=== PATIENT | female | born 1960 | race Caucasian/White ===

== ENCOUNTER 2024-11-03 05:59 | Emergency (ER) | payer BC, SELFPAY ==
[2024-11-03 06:00] VITALS: BP 158/86; PULSE 84; RESP 22; TEMP 36.3; O2SAT 98; BMI 35.1
--- NOTE | 2024-11-03 06:22 | RAD_ITS ---
PROCEDURE: Right humerus radiographs, three views 11/03/2024 REASON FOR EXAM: PAIN fall TECHNIQUE: Three views of the right humerus were obtained. COMPARISON: None. FINDINGS: 3 views of the right humerus were obtained. The mid to distal right humerus and included proximal radius/ulna are intact. There is a displaced comminuted fracture involving the right humeral head/neck junction, which extends into the substance of the humeral head. A large portion of the humeral head is displaced inferiorly relative to the glenoid. RAD/Humerus min 2 Views IMPRESSION: Comminuted displaced fracture of the proximal right humerus/humeral head. Reading Location: [facility]
--- NOTE | 2024-11-03 06:22 | RAD_ITS ---
PROCEDURE: Right shoulder radiographs, three views 11/03/2024 REASON FOR EXAM: PAIN, fall TECHNIQUE: Three views of the right shoulder were obtained. FINDINGS: Three radiographic images of the right shoulder were obtained. Mild degenerative change of the right acromioclavicular joint. No AC joint widening. Included right lung is clear. There is a comminuted displaced fracture of the right humeral head/neck junction. There is a comminuted appearance of the right humeral head. A large portion of the right humeral head is displaced inferior to the glenoid, without significant anterior or posterior dislocation. RAD/Shoulder min 2 Views IMPRESSION: Comminuted displaced fracture of the proximal right humerus/right humeral head as above. There is inferior displacement of a large portion of the right humeral head inf erior to the glenoid. Reading Location: [facility]
[2024-11-03] MEDS: Ondansetron ODT 4 MG Tablet PO (06:39)
[2024-11-03] MEDS: morphine 10 MG/ML Syringe 6 MG IM (06:39)
--- NOTE | 2024-11-03 06:42 | EDS_ITS ---
HPI History of Present Illness Chief Complaint: Upper Extremity Injury Informant: patient and spouse/S.O. Narrative Narrative: Patient is a 64-year-old female who reports a past medical history of hypertension and hyperlipidemia. She reports she is right-hand dominant. She states around 3 in the morning she fell out of bed and landed on her right side. She denies any LOC and states she does not have a history of bleeding disorder nor does she take blood thinners. She states she noticed pain in her right upper arm/shoulder but tried to go back to bed. She states over the next 3 hours any type of motion causes severe pain and she noticed increased swelling to the arm and therefore with concern for fracture she presents for evaluation [facility] Medical History no medical history no medical history Home Medications ?Medication ?Instructions ?Recorded ?Last Taken ?Type ondansetron 4 mg disintegrating 4 mg PO TID PRN nausea and 11/03/24 Unknown Rx tablet vomiting #21 tabs oxycodone 5 mg tablet 5 mg PO Q6H PRN pain 5 days #20 11/03/24 Unknown Rx tabs Allergy/AdvReac Type Severity Reaction Status Date / Time Unable to Assess Allergy Verified 11/03/24 06:04 Social History Smoking Status: Current every day smoker tobacco type: cigarettes ROS ROS ED Constitutional Constitutional ED: Denies chills or fever(s) Eyes Eyes: Denies blurry vision, change in vision or diplopia ENT ENT ED: Denies sore throat Cardiovascular Cardiovascular: Denies chest pain Respiratory/Chest Respiratory/Chest: Denies cough or dyspnea Gastrointestinal Gastrointestinal: Denies abdominal pain, diarrhea, nausea or vomiting Genitourinary Genitourinary ED: Denies dysuria Musculoskeletal Musculoskeletal: Reports other Details: Positive right shoulder/upper arm pain ; Denies back pain or neck pain Integumentary Reports other Details: Positive bruising right upper arm Neurologic Neurologic: Denies headache(s) or paresthesias Hematologic/Lymphatic Hematologic/Lymphatic: Denies easy bleeding or easy bruising EXAM Physical Exam Const Vital Signs: 11/03/24 06:00 Temperature 97.4 F L Temperature Source Oral Pulse Rate 84 Respiratory Rate 22 H Blood Pressure 158/86 H Blood Pressure Mean 110 Pulse Ox 98 Positive well nourished, well developed and obese General Appearance ED: well developed Nutritional Appearance: obese HEENT HEENT Narrative: Normocephalic atraumatic Eyes PERRL and EOMs intact bilaterally Neck full ROM and supple Neck Narrative: No bony deformity or step-off of the cervical spine no midline tenderness to palpation Resp normal respiratory effort and clear to auscultation bilaterally Cardio regular rate and regular rhythm Back/Spine Back/Spine Narrative: No bony deformity or step-off of the thoracic or lumbar spine no midline tenderness to palpation Extremity Extremity Narrative: Right upper extremity is neurovascularly intact; AIN/PIN are intact and normal Patient has ecchymosis and soft tissue swelling of the right upper arm/humerus compared to left concerning for fracture. Compartments are soft and compressible however going against compartment syndrome. No sulcus sign noted. Active range of motion as well as passive range of motion is severely limited secondary to pain Pelvis is stable there is no shortening or external rotation of either lower extremity Remainder of the exam is normal Neuro oriented x3 and CN's II-XII intact bilaterally Sensorium / Orientation: alert Psych mental status grossly normal Skin Skin Narrative: Soft tissue swelling ecchymosis of the right upper arm/humerus as documented above Capillary refill is less than 3 seconds MDM MDM MDM Narrative Medical decision making narrative: Patient presented to the ER hypertensive as a past medical history of this. She reported a mechanical fall from her bed she is not on a blood thinner nor does she have signs of head trauma so my concern for a skull fracture versus traumatic subarachnoid or subdural hemorrhage is low and I feel no need for head CT. The patient has soft tissue swelling ecchymosis of the right upper arm but compartments are soft and compressible going against compartment syndrome. As history and exam is most concerning with a proximal humerus fracture/shoulder fracture x-rays were obtained. This confirmed a comminuted humeral head/neck fracture. The case was discussed and reviewed by orthopedic surgeon Dr. Flores. He agrees as she is neurovascularly intact there is no need for emergent surgical fixation. He recommends he be placed in a sling for stabilization and can follow-up as an outpatient. This plan of care was discussed with patient and family and they are agreeable to it and therefore she prescribed oxycodone for pain control but is otherwise safe for discharge History & Record Review Discussion w/independent historian: Patient and Significant other Radiography Diagnostic Testing: X-ray of the right shoulder displays a comminuted fracture of the right humeral head/neck junction without obvious dislocation X-ray of the right humerus shows the comminuted fracture of the right humeral head with intact distal humerus Discharge Plan Triage Chief Complaint: Upper Extremity Injury ED Provider: Luis Geiger Dx/Rx/DC Orders Clinical Impression: Fracture of shoulder, Accidental fall, Hypertension, Hyperlipidemia Instructions: ED Fracture, Upper Extremity, ED Fracture, Shoulder Prescriptions: New oxycodone 5 mg tablet 5 mg PO Q6H PRN (Reason: pain) 5 Days Qty: 20 0RF ondansetron 4 mg tablet,disintegrating 4 mg PO TID PRN (Reason: nausea and vomiting) Qty: 21 0RF Primary Care Provider: Cooper Rivers Referrals: Cooper Rivers MD [Primary Care Provider] - Man Flores DO [Med Staff - Active Staff] - (Right shoulder fracture) Activity Restrictions/Additional Instructions: Please wear your sling for support and stabilization of your fracture. Sleep in more of an upright position to allow gravity to lengthen the fracture fragment out. Follow-up with orthopedics/Dr. Flores for repeat evaluation and to discuss need for surgical fixation of your shoulder. Return to the ER should you have any further concerns Print Language: Latvian Disposition Disposition: Home, Self Care
[2024-11-03 08:06] VITALS: BP 119/66; PULSE 78; RESP 14; TEMP 36.6; O2SAT 97
== END 2024-11-03 08:08 | disposition home or self-care (01) ==
PROVIDERS: Emergency Provider Emergency Medicine; PCP Family Medicine; Visit Provider Emergency Medicine
DX: S42.201A Unspecified fracture of upper end of right humerus, initial encounter for closed fracture (principal); W06.XXXA Fall from bed, initial encounter; I10 Essential (primary) hypertension; E78.5 Hyperlipidemia, unspecified; E66.9 Obesity, unspecified; F17.210 Nicotine dependence, cigarettes, uncomplicated
CPT/HCPCS: 73030; 73060; 96372; 99283

== ENCOUNTER → 2024-11-03 | Outpatient (CLI) | payer BC, SELFPAY ==
--- NOTE | 2024-11-03 15:15 | CT_ITS ---
PROCEDURE: Noncontrast CT of the right shoulder. 11/03/2024 REASON FOR EXAM: Proximal right humerus fracture TECHNIQUE: Contiguous unenhanced axial CT images were obtained through the right shoulder. Sagittal and coronal reformats were created. One or more dose reduction techniques were used (e.g., Automated exposure control, adjustment of the mA and/or kV according to patient size, use of iterative reconstruction technique). RADIATION DOSE SUMMARY: DLP: 807.95 mGycm COMPARISON: Right shoulder radiographs from the same day FINDINGS: Included portions of the spine, sternum, right scapula, and right clavicle are intact. The included right ribs are intact. The included portions of the trachea and right lung are clear. The included right breast is unremarkable. There is a displaced extensively comminuted fracture involving the right humeral head/neck junction. Fracture extends into the right humeral head which demonstrates a comminuted appearance. The bulk of the right humeral head is displaced inferiorly relative to the glenoid, without significant anterior/posterior dislocation. There is edema involving the soft tissues and musculature of the proximal right humerus as well as the rotator cuff. No bony Bankart lesion is demonstrated. Small right glenohumeral joint effusion. No AC joint separation. CT/Extremity Upper without Contra IMPRESSION: Displaced comminuted fracture involving the proximal right humerus, extending i nto the right humeral head. The bulk of the right humeral head is displaced inferiorly relative to the glenoid. Small glenohumeral joint effusion and moderate edema involving the nearby muscu lature and soft tissues/subcutaneous fat of the upper right arm. [facility]
[2024-11-03 15:46] LABS: Absolute Lymphocyte Count 1.75 X10^3/uL (0.83-4.51); Absolute Neutrophil Count 9.9 X10^3/uL (2.0-7.7); Basophil# 0.04 X10^3/uL; Basophil% 0.3 % (0-1); Eosinophil# 0.04 X10^3/uL; Eosinophils% 0.3 % (0-5); Hematocrit 42.2 % (37-47); Hemoglobin 14.2 g/dL (12.0-15.0); Lymphocyte # 1.75 X10^3/ul (0.83-4.51); Lymphocyte % 13.8 % (19-41); Mean Corp Hgb Conc 33.6 g/dL (32-36); Mean Corpuscular Hgb 31.6 pg (27.0-32.0); Mean Platelet Vol. 11.9 fl (6.2-12.0); Monocyte# 0.86 X10^3/uL; Monocyte% 6.8 % (0-10); NRBC Flagged by Analyzer 0 % (0-5); Neutrophil % 78.3 % (47-70); Platelet Count 227 K/mm3 (150-450); RBC Distribution Width CV 14.5 % (11.6-14.6); RBC Distribution Width SD 49.7 fl (35.1-43.9); Red Blood Count 4.49 M/mm3 (4.2-5.4); White Blood Count 12.7 K/mm3 (4.4-11.0)
[2024-11-03 16:35] LABS: Anion Gap 13 (5-15); BUN 14 mg/dL (4-19); BUN/Creat Ratio 17.1 RATIO (10-20); Calcium,Total 9.4 mg/dL (7.6-11.0); Carbon Dioxide 24.8 mmol/L (21.0-32.0); Chloride 95 mmol/L (98-108); Creatinine, Serum 0.84 mg/dL (0.70-1.20); EST Glomerular Filtration Rate 78 (>60); Glucose 112 mg/dL (70-99); Potassium 3.5 mmol/L (3.3-5.1); Sodium Level 133 mmol/L (133-145)
== END | disposition home or self-care (01) ==
PROVIDERS: PCP Family Medicine
DX: Z01.812 Encounter for preprocedural laboratory examination (principal); S42.291A Other displaced fracture of upper end of right humerus, initial encounter for closed fracture; X58.XXXA Exposure to other specified factors, initial encounter; Z71.3 Dietary counseling and surveillance
CPT/HCPCS: 36415; 73200; 80048; 85025

== ENCOUNTER → 2024-11-04 | Outpatient (CLI) | payer BC, SELFPAY ==
--- NOTE | 2024-11-04 08:40 | EKG12_ITS ---
Test Reason : PRE OP Blood Pressure : */* mmHG Vent. Rate : 72 BPM Atrial Rate : 72 BPM P-R Int : 124 ms QRS Dur : 86 ms QT Int : 398 ms P-R-T Axes : 44 -6 67 degrees QTcB Int : 435 ms Normal sinus rhythm Normal ECG Confirmed by ANSELMO ROSENBERG, LETY ([id number]), senior editor SHERRY GRAYSON ([id number]) on 11/04/2024 12:45:44 PM Referred By: Lyly Teixeira Confirmed By: LETY BRIONES MD
== END | disposition home or self-care (01) ==
LOC: PSN 08:33
PROVIDERS: PCP Family Medicine
DX: Z01.810 Encounter for preprocedural cardiovascular examination (principal)
CPT/HCPCS: 93005

== ENCOUNTER 2024-11-21 15:16 | Observation (INO) | payer BC, SELFPAY ==
[2024-11-15 17:50] LABS: Magnesium 1.7 mg/dL (1.5-2.2)
[2024-11-21] VITALS (13 sets, daily range): BP systolic 76–156; BP diastolic 40–97; PULSE 73–93; RESP 15–20; TEMP 36.1–36.9; O2SAT 56–100; BMI 34.2; BMI 35.2
[2024-11-21] MEDS: Lactated Ringers 1,000 ML 75 ML IV (08:00)
--- NOTE | 2024-11-21 10:43 | PRE.ANES_ITS ---
ASA Classification* ASA Classification ASA Classification: 2 Assessment & Plan Anesthesia* Anesthesia Assessment Anesthesia Assessment: Discussed sedation and/or anesthesia options, risks, benefits, and alternatives with patient/parents/legal guardian/POA. Questions invited. The patient/parents/legal guardian/POA seems to understand and agrees to proceed with anesthesia plan. Reviewed the physical assessment, medical history, allergy history and patient home medications list prior to surgery/procedure/anesthetic and documented any changes. Performed airway and anesthesia risk assessments. Anesthesia Type Anesthesia Type: General and Block Anesthesia Focused Assessment* Airway Assessment Mouth opens: >3 cm Mallampati Score: II Focused Labs Anesthesia Preop lab: CBC WBC 12.7 K/mm3 (4.4-11.0) H 11/03/24 14:58 5 RBC 4.49 M/mm3 (4.2-5.4) 11/03/24 14:58 11/03/24 Hgb 14.2 g/dL (12.0-15.0) 11/03/24 14:58 11/03/24 Hct 42.2 % (37-47) 11/03/24 14:58 11/03/24 Plt Count 227 K/mm3 (150-450) 11/03/24 14:58 11/03/24 CHEMISTRY Potassium 3.5 mmol/L (3.3-5.1) 11/03/24 14:58 11/03/24 Sodium 133 mmol/L (133-145) 11/03/24 14:58 11/03/24 Magnesium 1.7 mg/dL (1.5-2.2) 11/15/24 16:21 11/15/24 BUN 14 mg/dL (4-19) 11/03/24 14:58 11/03/24 Creatinine 0.84 mg/dL (0.70-1.20) 11/03/24 14:58 11/03/24 Glucose 112 mg/dL (70-99) H 11/03/24 14:58 11/03/24 COAG Pre-Assessment Diagnosis/Proposed Procedure Planned Operative Procedure(s): (R) Total Shoulder Replacement, Reverse Anesthesia 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 When Was Last Pacemaker Check QUESTION #4 FULL TEXT: You/Your Family Experience fever (hyperthermia) with Anesthesia Last Oral Intake Last Oral intake: Last Oral Intake NPO since Meds taken in AM with sips of water? 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 Female Yes 11/14/24 12:38 HX of Motion Sickness No 11/14/24 12:38 HX of N/V After Surgery No 11/14/24 12:38 Non-Smoker No 11/14/24 12:38 Duration of Surgery greater Yes 11/14/24 12:38 than 60 minutes Number of Risk Factors 2 11/14/24 12:38 PONV Score Moderate Risk 11/14/24 12:38 Height & Weight Height & Weight: Anesthesia: Height & Weight Height 5 ft 7 in 11/18/24 10:49 Weight: 99.79 kg 11/18/24 10:49 Respiratory Assessment Respiratory Assessment - railroad car repairman: Respiratory Tract Infection Hx - railroad car repairman Hx Respiratory Tract Infection No 11/14/24 12:38 STOP Sleep Apnea STOP Sleep Apnea - railroad car repairman: STOP Sleep Apnea - railroad car repairman Hx Hypertension Yes: PER PT, CONTROLLED ON 11/14/24 12:38 MEDS Hx Sleep Apnea No 11/14/24 12:38 CPAP BIPAP Do you snore loudly (louder No 11/14/24 12:38 than talking or can be heard Do you often feel tired/ No 11/14/24 12:38 fatigued/ sleepy during daytime? Has anyone observed you stop No 11/14/24 12:38 breathing during sleep? STOP Results Negative 11/14/24 12:38 QUESTION #5 FULL TEXT : Do you snore loudly (louder than talking or can be heard through closed doors)? 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 Specify any problems Hx of Preganancy in last 3 No 11/14/24 12:38 Months Nurse Filling Out Transfusion MGRIFFITH 11/14/24 12:38 & Questions: Date: 11/14/24 11/14/24 12:38 Time: 12:41 11/14/24 12:38 Patient unable to answer at this time (ie. confused, unrespo /Reproduction History /Reproductive History - railroad car repairman: /Reproductive Hx- railroad car repairman Hx Now No 11/14/24 12:38 Gestational Age (in weeks): EDC: Hx Hx Para Hx Section SAB No 11/14/24 12:38 Active Medications Active Medications: Current Medications Generic Name Dose Route Start Last Admin Trade Name Freq PRN Reason Stop Dose Admin Acetaminophen 1,000 mg 11/21/24 13:05 Acetaminophen 500 Mg Tablet PO 11/21/24 13:06 X1 ONE Celecoxib 400 mg 11/21/24 13:05 Celecoxib 200 Mg Capsule PO 11/21/24 13:06 X1 ONE Gabapentin 600 mg 11/21/24 13:05 Gabapentin 600 Mg Tablet PO 11/21/24 13:06 X1 ONE Magnesium Sulfate 2 gm/ 104 mls @ 208 mls/hr 11/21/24 13:05 Dextrose IV 11/21/24 13:34 X1 ONE Lactated Ringer's 1,000 mls @ 999 mls/hr 11/21/24 13:05 IV 11/21/24 14:05 .Q1H1M ALICE Cefazolin Sodium 2 gm/ N/A 20 mls @ 400 mls/hr 11/21/24 13:05 IV 11/21/24 13:07 PREOP ONE Tranexamic Acid 1,000 mg/ 110 mls @ 660 mls/hr 11/21/24 13:05 Sodium Chloride IV 11/21/24 13:14 X1 ONE Lactated Ringer's 1,000 mls @ 75 mls/hr 11/21/24 13:05 IV 11/22/24 02:24 .[id number] ALICE Lactated Ringer's 1,000 mls @ 125 mls/hr 11/21/24 13:05 IV 11/21/24 21:04 .Q8H ALICE Insulin Human Lispro 1 - 6 unit 11/21/24 13:05 Insulin Lispro 100 Unit/Ml Insuln.Pen SC 11/21/24 18:00 Q4H PRN PRN BG>/= 180, SEE PROTOCOL Protocol PFSH Medical History Wears glasses High cholesterol Gastric reflux Smoker Chronic cough Hypertension Home Medications ?Medication ?Instructions ?Recorded ?Last Taken ?Type ondansetron 4 mg disintegrating 4 mg PO TID PRN nausea and 11/03/24 Unknown Rx tablet vomiting #21 tabs oxycodone 5 mg tablet 5 mg PO Q6H PRN pain 5 days #20 11/03/24 Unknown Rx tabs cholecalciferol (vitamin D3) 25 25 mcg PO DAILY 11/20/24 History mcg (1,000 unit) capsule (Vitamin D3) coenzyme Q10 100 mg capsule (Co 100 mg PO DAILY 11/20/24 History Q-10) hydrochlorothiazide 25 mg tablet 25 mg PO DAILY 11/20/24 History losartan 100 mg tablet 100 mg PO DAILY 11/14/2402/08 History ranitidine HCl 150 mg tablet 150 mg PO DAILY PRN ACID REFLUX 11/14/24 11/20/24 History simvastatin 20 mg tablet 20 mg PO QHS 11/14/24 History zolpidem 12.5 mg tablet,extended 12.5 mg PO QHS PRN NH N insomnia 11/14/24 11/20/24 History release,multiphase Allergy/AdvReac Type Severity Reaction Status Date / Time No Known Allergies Allergy Verified 11/21/24 10:40 Surgical History History of History of cholecystectomy Social History Smoking Status: Current every day smoker tobacco type: cigarettes Review of Systems (Anesthesia) ROS Narrative System reviewed and no additional complaints, except as documented.
[2024-11-21] MEDS: Celecoxib 200 MG Capsule 400 MG PO (10:49)
[2024-11-21] MEDS: Magnesium 2 GM for ERAS IV (10:49)
[2024-11-21] MEDS: Gabapentin 600 MG Tablet PO (10:49)
[2024-11-21] MEDS: Lactated Ringers 1,000 ML 999 ML IV (10:49)
[2024-11-21] MEDS: Acetaminophen 500 MG Tablet 1000 MG PO ×2 (10:49→20:20)
[2024-11-21] MEDS: Ipratropium/Albuterol Sulfate 3 ML AMPUL.NEB INHALATION (11:10)
[2024-11-21 11:11] LABS: Bedside Glucose 106 mg/dL (74-106)
--- NOTE | 2024-11-21 12:35 | SHO_PTH ---
PATIENT: ADRIANNA SHAH LOC: [facility] U#:[id number] AGE/SX: 64/F ROOM: [facility] RE11/21/[address]: Dr. Man Flores DO : 1960 BED: 1 DIS: 11/22/2024 SPEC #: [id number] RECD: 11/22/24 08:43 STATUS: VLAD LANIE #: [id number] CARLENE: 11/21/24 12:[address]: Man Flores DEPT: SURGICAL PATHOLOGY RECD BY: Christiano Montes ENTERED: 11/22/24 08:43 SP TYPE: HUMERUS OTHR DR: Dr. Cooper Rivers MD Tissues: A - Humerus, NOS Procedures: Decalcification bone/plaque Surgery Specimen Level IV HEADER OPERATION: Total shoulder replacement, reverse PRE-OP DIAGNOSIS: Right proximal humerus fracture TISSUE SUBMITTED: A- Right humeral head MICROSCOPIC DIAGNOSIS A. Right shoulder, fracture, total arthroplasty: * Articular bone with mild reactive/degenerative changes. * Fatty marrow with focal necrosis and fibrosis. * No evidence of neoplasia. MICROSCOPIC DESCRIPTION Slides are reviewed. GROSS DESCRIPTION A. Received in formalin in a container labeled with the patient's name, date of , and right humeral head are multiple irregular and firm fragments of bone measuring 5.0 x 5.0 x 3.0 cm in aggregate. The margins are shaggy and firm. The cortical surfaces are osborne and smooth. Sectioning reveals firm and osborne surfaces. Assistant Elementary Teacher sections submitted in A1 following decalcification. [facility] 11-22-2024 CPT:91662,67111
[2024-11-21] MEDS: Cefazolin 2 GM in Syringe 10 ML IV (13:10)
[2024-11-21] MEDS: TXA 1000mg in NS100 100ml (IVPB at Incision) 660 MG IV (13:15)
--- NOTE | 2024-11-21 14:21 | RAD_ITS ---
PROCEDURE: SHOULDER ONE VIEW 11/21/2024 REASON FOR EXAM: REVERSE TOTAL SHOULDER TECHNIQUE: 2 intraoperative fluoroscopic images from right shoulder replacement. COMPARISON: Right shoulder x-ray dated 11/03/2024. FINDINGS: Intraoperative images demonstrate right shoulder arthroplasty hardware, new since prior examination. Anatomic alignment. The humeral component is not viewed in its entirety on the images. RAD/Shoulder One View IMPRESSION: Status post right shoulder arthroplasty. Anatomic alignment. Reading Location: [id number]
--- NOTE | 2024-11-21 15:32 | PCM.POST.ANE ---
Anesthesia: Postop Eval I Current Vital Signs Temperature: 97 F Pulse Rate: 90 Blood Pressure: 140/97 Respiratory Rate: 15 Pulse Ox: 98 Oxygen Delivery Method: Room Air Assessment Airway patent: Yes Spontaneous unlabored respirations: Yes Mental status: Awake and Calm nausea: No Vomiting: No Anesthesia Complication: No Fluid Hydration Crystalloid volume administer (ml): 1,500 Total IV fluid infused: 1,500 Progress Note Anesthesia document: Postop Eval 1 completed: Yes
--- NOTE | 2024-11-21 15:45 | RAD_ITS ---
PROCEDURE: SHOULDER MIN 2 VIEWS 11/21/2024 REASON FOR EXAM: POST OP TECHNIQUE: 2 view(s) of the right shoulder COMPARISON: Intraoperative radiographs earlier same day. FINDINGS: Bones: Reverse shoulder arthroplasty in grossly anatomical alignment. Joints: Normal alignment. Mild degenerative changes of the acromioclavicular joint space. Soft tissues: Mild soft tissue swelling. Other: The visualized right lung is unremarkable. RAD/Shoulder min 2 Views IMPRESSION: Postoperative right reverse shoulder arthroplasty. Reading Location: [id number]
--- NOTE | 2024-11-21 15:49 | PCM.OPRPT ---
Operative Report (Standard) Operative Information Date of Procedure: 11/21/24 Pre-Operative Diagnosis: Right proximal humerus four-part fracture Post-Operative Diagnosis: Right proximal humerus four-part fracture Surgery/Procedure Performed: Right reverse total shoulder arthroplasty swine genetics researcher: Yes Correctional Therapy Director: Padma Grace Tasks completed by insurance assistant: Opening & closing, Dissecting tissue, Implanting device, Hemostasis: Electrocautery and Retracting Additional payroll administrative assistant?: No Type of Anesthesia: General/Regional RN Documented Start/Stop Times: Operation Date: 11/21/24 12:35 Case Time Into Pre-Op 11/21/24 10:23 Anesthesia Start 11/21/24 13:00 Into Room 11/21/24 13:00 Procedure Start 11/21/24 13:32 Procedure End 11/21/24 15:05 Anesthesia End 11/21/24 15:23 Out of Room 11/21/24 15:23 Into Recovery 11/21/24 15:27 Procedure Start Time: 13:32 Procedure Stop Time: 15:05 Select all DRAINS/GRAFTS/IMPLANTS that apply: Implanted device Implanted device details: Tornier perform fracture stem size 12, +0 mm retentive polyethylene, [employer]ornier Aequalis PerFORM+ reversed baseplate 25 mm full wedge augmented, standard glenosphere cobalt chrome 39 mm diameter Estimated Blood Loss: 50 cc Specimen collected: Yes Description of specimen(s) removed: Right humeral head Description of surgery: Patient arrived to [facility] morning of the procedure and was greeted by the same day surgery staff. Prior to her procedure, I greeted the patient in the preoperative holding area I identified the patient by name, record number, and date of . Informed consent was confirmed. The operative extremity was marked. All questions were answered to patient satisfaction. Patient was also seen by anesthesia staff. Interscalene block was administered prior to procedure for postoperative analgesia. At time of her procedure, patient was brought to the operative suite and positioned supine on a standard table with a beachchair attachment. General anesthesia was induced after all bony prominences were well-padded. Endotracheal tube was placed. After adequate anesthesia and securing the tube, we prepared the patient to be positioned in the beachchair position. A well-padded head pumper was applied. The nonoperative extremity was placed in a well arm bacon. She was then brought into the beachchair position after we confirmed an appropriate blood pressure. We then spun the bed 45 degrees. The operative extremity was then prepared. In the butterfly wing of the bed was removed and a well-padded torso strap was applied to secure the patient to the bed. The operative extremity was now free. We then prepped and draped the right upper extremity in normal, sterile orthopedic fashion. We then performed a timeout with all parties in attendance in agreement with the side, site, and operation be performed. 2 g Ancef was administered prior to incision by anesthesia staff, as well as 1 g TXA IV. No concerns were voiced and we elected to proceed. I first marked a standard deltopectoral incision just lateral to the coracoid process in line with the long axis of the humerus. Skin was sharply incised with 10 blade scalpel. I then dissected bluntly through the subcutaneous layers and found the fat stripe between the deltoid and pectoralis major. The cephalic vein was then identified and protected. It was retracted laterally with the deltoid. I then bluntly dissected underneath the deltoid with a Kilpatrick elevator. This quickly identified the fracture site. The upper 1 cm of the pectoralis major was released. I then identified the long head of the biceps tendon in the intertubercular groove. This was tenodesed in situ with #2 FiberWire. I then amputated the biceps proximal to the tenodesis site and followed the tendon to the supraglenoid tubercle where it was amputated. This identified the lesser and greater tuberosities. I tagged the supraspinatus and subscapularis respectively with #2 suture tape for later repair along with their attached tuberosities. I then placed retractors around the posterior and anterior glenoid to expose the glenoid. Glenoid labrum was removed with Bovie cautery protecting the axillary nerve, which was in close proximity to the glenoid neck. We then used the full wedge augment guide from Tornier to position our centering pin. Guide was removed and pin was analyzed and compared to preoperative planning. It appeared to be in appropriate position. This was reamed about 2 mm deep. We then remove the reamer and used the cannulated drill for the central short post. Pin was removed. Post and baseplate was assembled on the back table. We then inserted the baseplate and central post and impacted the baseplate to an appropriate depth. A Kingsley was used to confirm depth. 4 peripheral screws were placed with excellent purchase. The baseplate had excellent purchase and the entire scapula would rotate with rotation of the baseplate. We then impacted the 39 mm glenosphere and tightened the locking screw. We then removed retractors and turned our attention to the humerus. The calcar appeared to be intact. We utilized 30 degrees retroversion for placement of our broaches. We were able to place a size 12 broach with good interference fit in the metaphysis. We selected this as our final size. I placed 2 drill holes through the anterior cortex to reduce the tuberosities to the shaft. Suture tapes were placed through these drill holes and later shuttled through the tuberosities for stabilization. I copiously irrigated the canal. Broach was placed on hand and then impacted to an appropriate depth. I then trialed with a standard poly and brought through a range of motion. No significant impingement or instability was noted even prior to tuberosity repair. Trials were removed and final standard polyethylene was placed. I then copiously irrigated the wound with dilute sterile Betadine and normal saline solution. Hemostasis was excellent. The axillary nerve was visualized and appeared to be intact. I then passed a cerclage #2 suture tape through the supraspinatus around the back of the implant and through the subscapularis. This was tied to close the rotator interval. I then secured the subscapularis tag suture and supraspinatus tack suture to drill holes in the anterior humeral neck. I then tied the sutures together to again close interval. I then placed a [id number]-[id number]-reudy suture through the anterior superior region of the supraspinatus down to the subscapularis to further close the rotator interval. The entire proximal humeral segment appeared to move as 1 unit. Final fluoroscopic images were obtained. We then copiously irrigated the wound with normal saline solution. We reapproximated the interval with 0 Vicryl suture. Subcutaneous layers were reapproximated with 2-0 Vicryl suture.. Skin was finally running V-Loc Monocryl suture and Dermabond. A sterile silver Mepilex dressing was applied. Patient was then placed in a abduction pillow sling. Patient tolerated procedure well without complication. She was positioned back in the supine position extubated in the operative suite. She was transferred to the [place] and subsequently to PACU in stable condition. Need for skilled payroll administrative assistant: Padma Grace PA-C was critical to the outcome of the case. During the course of the procedure the physician payroll administrative assistant played a vital role. Her intimate knowledge of my steps in the procedure aided in safe and expedient completion of the procedure. The PA played a vital role in positioning particularly in obtaining the appropriate positioning. The PA was also vital in the retraction of soft tissues during the exposure and projecting vital structures. The PA was also vital and protecting soft tissues during times of bony cuts. She also played a vital role in closure with my direct supervision. The PA was also important during reduction and dislocation of the joint and trials intraoperatively. Intraoperative medications: 2 g Ancef IV, 1 g TXA IV Post Operative Plan: Weightbearing: Nonweightbearing right upper extremity, okay for pendulums. Range of motion of wrist elbow and hand as tolerated. Antibiotics: 2 g Ancef IV prior to incision, Keflex x23 hours postop DVT Prophylaxis: Aspirin 81 mg twice daily starting tomorrow Grigsby: None Dressing: Maintain silver dressing x 5 days. Okay to shower dressing on started on day 4 X-Rays: 2 weeks postop in the office Pain Medication: Oxycodone Rx upon discharge Follow-up: 2 weeks post-operatively with me in the office Surgical Findings: Displaced four-part proximal humerus fracture right. Stable tuberosity repair. Stable arc of motion right reverse shoulder arthroplasty following final reduction. Complications Complications: No Admit VTE Documentation VTE Present on Admission: No VTE Mechan Device Prophylaxis: SCD's VTE Pharm Prophylaxis ordered?: Yes
--- NOTE | 2024-11-21 16:39 | POSTOPAN2_ITS ---
Anesthesia Postop Eval I Sum Postop Eval Completion status Anesthesia document: Postop Eval 1 completed: Yes Anesthesia Postop Eval I Summary Anesthesia Postop Eval I Summary: Anesthesia Postop Eval I: Assessment Summary Airway patent Yes 11/21/24 15:33 [email or web address] Spontaneous unlabored Yes 11/21/24 15:33 [email or web address] [email or web address] respirations Mental status Awake,Calm 11/21/24 15:33 [email or web address] nausea No 11/21/24 15:33 [email or web address] [email or web address] Vomiting No 11/21/24 15:33 [email or web address] [email or web address] Anesthesia Postop Eval I: Fluid Summary Crystalloid volume administer 1,500 11/21/24 15:33 [email or web address] (ml) Colloids volume administered ( ml) Blood Product volume administered (ml) Total IV fluid infused 1,500 11/21/24 15:33 [email or web address] Anesthesia Postop Eval I: Summary Notes Anesthesia Complication No 11/21/24 15:33 [email or web address] Anesthesia Complication Comment: Post-operative progress note Anesthesia: Postop Eval II Evaluation Mental status: Awake Pain Level: 0 nausea: No Vomiting: No
--- NOTE | 2024-11-21 16:39 | PCM.POSTANE2 ---
Anesthesia Postop Eval I Sum Postop Eval Completion status Anesthesia document: Postop Eval 1 completed: Yes Anesthesia Postop Eval I Summary Anesthesia Postop Eval I Summary: Anesthesia Postop Eval I: Assessment Summary Airway patent Yes 11/21/24 15:33 [email or web address] Spontaneous unlabored Yes 11/21/24 15:33 [email or web address] respirations Mental status Awake,Calm 11/21/24 15:33 [email or web address] nausea No 11/21/24 15:33 [email or web address] Vomiting No 11/21/24 15:33 [email or web address] Anesthesia Postop Eval I: Fluid Summary Crystalloid volume administer 1,500 11/21/24 15:33 [email or web address] (ml) Colloids volume administered ( ml) Blood Product volume administered (ml) Total IV fluid infused 1,500 11/21/24 15:33 [email or web address] Anesthesia Postop Eval I: Summary Notes Anesthesia Complication No 11/21/24 15:33 [email or web address] Anesthesia Complication Comment: Post-operative progress note Anesthesia: Postop Eval II Evaluation Mental status: Awake Pain Level: 0 nausea: No Vomiting: No
[2024-11-21] MEDS: Atorvastatin Calcium 10 MG Tablet PO (20:20)
[2024-11-21] MEDS: Senna/Docusate Sodium 1 Tablet 2 TABLET PO (20:21)
[2024-11-21] MEDS: Cefazolin 1 GM/50 ML BAG IV (20:29)
[2024-11-22 00:15] VITALS: BP 152/90; PULSE 83; RESP 16; TEMP 36.8; O2SAT 93
[2024-11-22] MEDS: Famotidine 20 MG Tablet PO ×2 (00:40→09:10)
[2024-11-22 04:16] VITALS: BP 160/85; PULSE 85; RESP 16; TEMP 36.6; O2SAT 92
[2024-11-22] MEDS: Losartan Potassium 100 MG Tablet PO (04:18)
[2024-11-22] MEDS: Cefazolin 1 GM/50 ML BAG IV (04:18)
[2024-11-22] MEDS: 0.9% Saline Lock 10 ML Syringe IV (04:20)
[2024-11-22] MEDS: Acetaminophen 500 MG Tablet 1000 MG PO (05:30)
[2024-11-22 08:00] LABS: Hematocrit 36.5 % (37-47); Hemoglobin 12.3 g/dL (12.0-15.0); Mean Corp Hgb Conc 33.7 g/dL (32-36); Mean Corpuscular Hgb 31.7 pg (27.0-32.0); Mean Corpuscular Volume 94.1 fL (81-99); Mean Platelet Vol. 12.4 fl (6.2-12.0); Platelet Count 283 K/mm3 (150-450); RBC Distribution Width CV 13.2 % (11.6-14.6); RBC Distribution Width SD 45.5 fl (35.1-43.9); Red Blood Count 3.88 M/mm3 (4.2-5.4); White Blood Count 15.4 K/mm3 (4.4-11.0)
[2024-11-22 08:31] LABS: Anion Gap 13 (5-15); BUN 8 mg/dL (4-19); BUN/Creat Ratio 13.6 RATIO (10-20); Calcium,Total 9.4 mg/dL (7.6-11.0); Carbon Dioxide 22.8 mmol/L (21.0-32.0); Chloride 102 mmol/L (98-108); EST Glomerular Filtration Rate 101 (>60); Estimated Creatinine Clearance 117.85 ml/min (50-250); Glucose 133 mg/dL (70-99); Potassium 4.3 mmol/L (3.3-5.1); Sodium Level 137 mmol/L (133-145)
[2024-11-22] MEDS: hydroCHLOROthiazide 25 MG Tablet PO (09:10)
[2024-11-22] MEDS: Senna/Docusate Sodium 1 Tablet 2 TABLET PO (09:10)
[2024-11-22] MEDS: Aspirin E.C. 81 MG Tablet PO (09:10)
[2024-11-22 09:12] VITALS: BP 148/74; PULSE 84; RESP 18; TEMP 36.5; O2SAT 96
[2024-11-22] MEDS: oxyCODONE 5 MG Tablet PO (09:16)
[2024-11-22 11:15] VITALS: O2SAT 96
--- NOTE | 2024-11-22 12:00 | DS.PCM_ITS ---
Providers Date of Admission: 11/21/24 Date of Discharge: 11/22/24 Primary Care Physician: Dr. Cooper Rivers MD Reason For Visit: Total Shoulder Replacement, Reverse Diagnosis Discharge Diagnosis (1) Proximal humerus fracture: Status: Acute Code(s): S42.209A - Unspecified fracture of upper end of unspecified humerus, initial encounter for closed fracture Plan 1. Will continue PT/OT. Elbow range of motion and pendulums only. Nonweightbearing to right upper extremity. 2. plan for discharge this afternoon following PT 3. Patient will follow up for post op appointment on and 2 weeks postoperatively this will need to be arranged. 4. Patient has outpatient PT appointment after her 2-week postop appointment. 5. WBC 15.4 acute reactive leukocytosis: secondary to pre operative decadron. no acute systemic signs of infection. will monitor, and likely self resolve. 6. H/H 12.3/36.5: post operavtive anemia secondary to acute blood loss intraoperatively. Patient is asymptomatic at this time. No intraoperative complications. will continue to monitor. no acute interventions. 7. DVT prophylaxis : Aspirin 81 mg twice daily x 2 weeks 8. Pain control: patient instructed to take tylenol 500mg 2 tablets TID. and oxycodone 1-2 tablets every 4-6 hours only as needed for pain control. 9. Patient also given a prescription of doxycycline, senna, patient has aspirin and Tylenol and Zofran at home.. 10. ok to remove post op dressing. post op day 7 Medications at Discharge Home Medications ondansetron 4 mg disintegrating tablet 4 mg PO TID PRN nausea and vomiting #21 tabs 11/03/24 cholecalciferol (vitamin D3) 25 mcg (1,000 unit) capsule (Vitamin D3) 25 mcg PO DAILY 11/14/24 coenzyme Q10 100 mg capsule (Co Q-10) 100 mg PO DAILY 11/14/24 hydrochlorothiazide 25 mg tablet 25 mg PO DAILY 11/14/24 losartan 100 mg tablet 100 mg PO DAILY 11/14/24 ranitidine HCl 150 mg tablet 150 mg PO DAILY PRN ACID REFLUX 11/14/24 simvastatin 20 mg tablet 20 mg PO QHS 11/14/24 zolpidem 12.5 mg tablet,extended release,multiphase 12.5 mg PO QHS PRN PRN insomnia 11/14/24 aspirin 81 mg tablet,delayed release 81 mg PO DAILY@0800 #28 tabs 11/22/24 doxycycline hyclate 100 mg capsule 100 mg PO BID #14 caps 11/22/24 meloxicam 7.5 mg tablet 7.5 mg PO BID #60 tabs 11/22/24 oxycodone 5 mg tablet 5 - 10 mg (1 - 2 x 5 mg) PO .q4-6hrs prn PRN Pain Score 4- 10 7 days #30 tabs 11/22/24 sennosides 8.6 mg-docusate sodium 50 mg tablet (Stimulant Laxative Plus) 2 tab PO BID #10 tabs 11/22/24 Hospital Course Operations - (Right reverse total shoulder arthroplasty.) Summary of Care Provided Hospital Course: Patient is s/p right reverse total shoulder arthroplasty with Dr. Flores. After a fall out of her bed and having a four-part proximal humerus fracture. Patient resting comfortably in bed. Rates pain 2/ 10 at rest. With movement 2/10. States taking Tylenol and oxycodone and ice help to relieve pain. Patient has been up with therapy. Compliant with sling. Nonweightbearing to right upper extremity.. Afebrile, no chest pain, shortness of breath, negative calf pain/ erythema, and no other signs of DVT. Physical Exam Narrative Patient resting comfortably in bed side chair No signs of acute distress Satting well on room air Sling in place Right upper extremity limb is warm to touch, Sensation intact throughout entire right upper extremity Motor intact to radial, median, ulnar nerve distribution Radial pulses bounding. Dressing clean dry intact Calf nontender to palpation, no erythema, no edema. Negative Homans Weight / BMI Weight Weight: 102.058 kg Body Mass Index (BMI) 35.2 ABG / Lab / Microbiology Data 11/22/24 07:01 11/22/24 07:01 Laboratory: Laboratory Results - last 24 hr 11/22/24 07:01: WBC 15.4 H, RBC 3.88 L, Hgb 12.3, Hct 36.5 L, MCV 94.1, MCH 31.7, MCHC 33.7, RDW Std Deviation 45.5 H, RDW Coeff of Tavia 13.2, Plt Count 283, MPV 12.4 H, Sodium 137, Potassium 4.3, Chloride 102, Carbon Dioxide 22.8, Anion Gap 13, BUN 8, Creatinine 0.60 L, Estim Creat Clear Calc 117.85, Est GFR (MDRD) Non-Af 101, BUN/Creatinine Ratio 13.6, Glucose 133 H, Calcium 9.4 Microbiology: Microbiology 11/15/24 16:21 Swab (Method) Nasal Screen MRSA/MSSA - Final Radiography Diagnostic Testing: Radiology Impression Shoulder X-Ray 11/21/24 14:21 IMPRESSION: Status post right shoulder arthroplasty. Anatomic alignment. Reading Location: [facility] Shoulder X-Ray 11/21/24 15:45 IMPRESSION: Postoperative right reverse shoulder arthroplasty. Reading Location: [facility] D/C Instructions Discharge Diet: No restrictions Discharge Activity: May Not Drive, May Shower and - (Nonweightbearing right upper extremity. Sling at all times.) Weight Bearing Status: No weight bearing (Right upper extremity) Call your doctor if your incision/area has: Continuous Slow Oozing, Sudden Increased Bleeding, Increased Pain/ Swelling, Increased Redness, Foul Smelling Discharge and Swelling at the incision site Call your doctor if you observe: Fever of 101 or Higher, Inability to have a bowel movement, Using more than 1 pad per hour, Shortness of breath, Swelling in the ankles, Chest pain, Increased palpitations (irregular heartbeat), Calf discomfort and Uncontrolled pain Remove Dressing in: 1 week Cleanse incision/area with: Soap & Water and Keep Dressing Clean & Dry DC O2, CPAP, BIPAP Needs Home O2 Discharge instructions: No DC home with Oxygen: No Meaningful Use Info Meaningful Use Meaningful Use Diagnoses (Choose all that apply): None applicable Ischemic Stroke Statin Dosing Therapy Reference: STATIN DOSE THERAPY REFERENCE: * Patients > 75 years receive moderate or high dose statin therapy. * Patients 75 years or YOUNGER should receive HIGH intensity statin dose unless contraindicated. You will be required to document reason for non-treatment if statin daily dose does not meet guidelines. HIGH DOSE STATIN THERAPY DAILY Atorvastatin > than or = to 40 mg Rosuvastatin > than or = to 20 mg Amlodipine + Atorvastatin > than or = to 2.5/40 mg Ezetimibe + Simvastatin 10/80 mg Simvastatin 80mg Discharge Plan Admission Admit Date/Time: 11/21/24 15:16 Attending Provider: Man Flores Primary Care Provider: Cooper Rivers Discharge Orders/Prescriptions Prescriptions: New aspirin 81 mg Tablet,Delayed Release (Dr/Ec) 81 mg PO DAILY@0800 Qty: 28 0RF meloxicam 7.5 mg Tablet 7.5 mg PO BID Qty: 60 0RF oxycodone 5 mg Tablet 5 - 10 mg PO .q4-6hrs prn PRN (Reason: Pain Score 4-10) 7 Days Qty: 30 0RF sennosides-docusate sodium [Stimulant Laxative Plus] 8.6-50 mg Tablet 2 tab PO BID Qty: 10 0RF doxycycline hyclate 100 mg capsule 100 mg PO BID Qty: 14 0RF Continued simvastatin 20 mg tablet 20 mg PO QHS hydrochlorothiazide 25 mg tablet 25 mg PO DAILY losartan 100 mg tablet 100 mg PO DAILY coenzyme Q10 [Co Q-10] 100 mg capsule 100 mg PO DAILY cholecalciferol (vitamin D3) [Vitamin D3] 25 mcg (1,000 unit) capsule 25 mcg PO DAILY zolpidem 12.5 mg tablet,ext release multiphase 12.5 mg PO QHS PRN PRN (Reason: insomnia) ranitidine HCl 150 mg tablet 150 mg PO DAILY PRN ondansetron 4 mg tablet,disintegrating 4 mg PO TID PRN (Reason: nausea and vomiting) Qty: 21 0RF Discontinued oxycodone 5 mg tablet 5 mg PO Q6H PRN (Reason: pain) 5 Days Qty: 20 0RF Referrals / Follow Up: Cooper Rivers MD [Primary Care Provider] - Disposition Disposition (needs filled in before D/C Order can be placed): Home, Self Care
--- NOTE | 2024-11-22 12:13 | CASEMGMT ---
STAR MATSON Assessment: Face to Face with pt for initial transition planning/care coordination assessment. STAR MATSON introduced self and role at [facility], pt voices understanding and consents to assessment. Pt is A&O x4 and answers all questions appropriately at this time. Pt sitting up in chair with and brother at bedside. Pt agreeable to assessment with family present. Care providers, pharmacy, and demographics verified/updated. Admitting Dx: total shoulder replacement, reverse Strata Score: 1 PCP:Tita Specialists:sharon Flores Pharmacy: [facility] Retail Insurance: [employer] Prescription Benefit: yes LNOK: Leon Barney, Living Arrangements: Pt lives with , brother and father in law in a two story home with a ramp to enter. Pt reports normally she is I in ADL/IADLs and family will assist post op. Pt denies concerns at home. Transportation: Pt drives self and denies concerns with transportation. Family will transport until pt can drive again. DME:Denies HHC/SNF: Denies hx of Pt states no concerns with going home at time of dc. Pt states no further concerns/needs. CM to follow. Advised pt to ask CM if any further questions/concerns/needs arise, voices understanding. Pt Goal: Home Plan: Home Jacek GRAVES CM
== END 2024-11-22 13:13 | disposition home or self-care (01) ==
LOC: SDC 16:18 → MS3 16:19
PROVIDERS: Anesthesiology; Admitting Provider Student in an Organized Health Care Education/Training Program; PCP Family Medicine; Referring Provider Student in an Organized Health Care Education/Training Program; Visit Provider Student in an Organized Health Care Education/Training Program
PROC: (CPT 23472; principal; 2024-11-21 12:05)
DX: S42.291A Other displaced fracture of upper end of right humerus, initial encounter for closed fracture (principal); W06.XXXA Fall from bed, initial encounter; I10 Essential (primary) hypertension; E78.00 Pure hypercholesterolemia, unspecified; E66.9 Obesity, unspecified; Z68.35 Body mass index [BMI] 35.0-35.9, adult; F17.210 Nicotine dependence, cigarettes, uncomplicated; Z79.891 Long term (current) use of opiate analgesic; Z79.899 Other long term (current) drug therapy
CPT/HCPCS: 23472; 01638; 36415; 73020; 73030; 76000; 80048; 82962; 83735; 85027; 87081; 88305; 88311; 94640; 94668; 94762; 96365; 96366; 97166; 99221; 99406; C1713; C1776; A4216; G0378; J2405

== ENCOUNTER 2025-02-06 19:12 | Inpatient (IN) | payer BC, SELFPAY ==
[2025-02-06] VITALS (19 sets, daily range): BP systolic 83–135; BP diastolic 46–94; PULSE 95–118; RESP 18–29; TEMP 37.5–38.4; O2SAT 68–98; BMI 32.8; BMI 34.4
--- NOTE | 2025-02-06 19:26 | CT_ITS ---
PROCEDURE: ABDOMEN/PELVIS W IV CONT ONLY 02/06/2025 REASON FOR EXAM: NAUSEA AND VOMITING TECHNIQUE: ABDOMEN/PELVIS W IV CONT ONLY Coronal and Sagittal reconstruction series were provided. CONTRAST: 97 mL Isovue 370 One or more dose reduction techniques were used (e.g., Automated exposure control, adjustment of the mA and/or kV according to patient size, use of iterative reconstruction technique. RADIATION DOSE SUMMARY: CTDlvol: 17.3 mGy DLP: 908 mGycm COMPARISON: None FINDINGS: Lung bases: Linear atelectasis or scarring at the left lung base. There is atelectasis or a tiny pleural effusion in the left posterior lung base. Coronary calcification partially imaged. Liver: Unremarkable Gallbladder: Surgically absent. Spleen: Normal size. Pancreas: Normal size without evidence of mass surrounding inflammation or ductal dilation. Adrenals: Thickening of the left adrenal gland without discrete nodularity. Kidneys: There is patchy hypodensity throughout the left kidney, with a stone at the left renal pelvis measuring 8 mm. There is stranding surrounding the left kidney and proximal ureter. Simple cyst at the lower pole of the left kidney. Nonobstructing stone in the right kidney measuring 2 mm. Bladder: Unremarkable Reproductive Organs: Unremarkable Bowel: Hiatal hernia. No obstruction or inflammation. There is colonic diverticulosis without evidence of acute diverticulitis. Appendix: The appendix is not identified. There is no inflammatory process identified in the right lower quadrant to suggest appendicitis. Lymph nodes: Prominent retroperitoneal lymph nodes are likely reactive. Vasculature: Moderate diffuse atherosclerotic calcifications are noted. Bones: Degenerative changes of the spine. Soft tissues: Small fat containing umbilical hernia. CT/Abdomen/Pelvis W IV Cont ONLY IMPRESSION: 1. Acute pyelonephritis of the left kidney, with a stone at the left renal pel vis measuring 8 mm. Consider Urology consultation. 2. Additional findings to include hiatal hernia, colonic diverticulosis, and l eft lung base atelectasis versus tiny pleural effusion. Reading Location: [id number]
--- NOTE | 2025-02-06 19:32 | EX.ED.DYSGE1 ---
HPI History of Present Illness Chief Complaint: Nausea/Vomiting Narrative Narrative: 64-year-old female past medical history of hypertension, presents with her because of nausea, vomiting, diarrhea and fever that she has had since Thursday, 3 days ago. She states she feels very tired and weak. She had subjective fever since Thursday, took Tylenol with relief of her symptoms. A few days ago she has developed nausea vomiting and diarrhea. She denies any hematemesis or blood in her stool. No real abdominal pain. She states the fever came back today. She denies any dysuria or hematuria, no exacerbating or alleviating factors. She states she feels very weak and tired. [facility] Medical History Proximal humerus fracture Wears glasses High cholesterol Gastric reflux Smoker Chronic cough Hypertension Home Medications ?Medication ?Instructions ?Recorded ?Last Taken ?Type ondansetron 4 mg disintegrating 4 mg PO TID PRN nausea and 11/03/24 Unknown Rx tablet vomiting #21 tabs cholecalciferol (vitamin D3) 25 25 mcg PO DAILY 11/14/24 11/20/24 History mcg (1,000 unit) capsule (Vitamin D3) coenzyme Q10 100 mg capsule (Co 100 mg PO DAILY 11/14/24 11/20/24 History Q-10) hydrochlorothiazide 25 mg tablet 25 mg PO DAILY 11/14/24 11/20/24 History losartan 100 mg tablet 100 mg PO DAILY 11/14/24 11/20/24 History simvastatin 20 mg tablet 20 mg PO QHS 11/14/24 11/20/24 History zolpidem 12.5 mg tablet,extended 12.5 mg PO QHS PRN PRN insomnia 11/14/24 11/20/24 History release,multiphase albuterol sulfate 90 mcg/actuation 2 puff inhalation Q4H PRN PRN 02/06/25 Unknown History aerosol inhaler wheezing Allergy/AdvReac Type Severity Reaction Status Date / Time No Known Allergies Allergy Verified 02/06/25 19:12 Surgical History History of History of cholecystectomy Social History Smoking Status: Current every day smoker tobacco type: cigarettes ROS ROS ED ROS Narrative Review of systems positive for fever, subjective. Positive nausea and vomiting, positive diarrhea. No cough or shortness of breath, no dysuria or hematuria. No abdominal pain. Positive malaise and fatigue and generalized weakness. EXAM Physical Exam Narrative Exam Narrative: Afebrile. Vital signs noted. Nontoxic-appearing. Cardiovascular examination reveals mild tachycardia. Lungs are clear to auscultation bilaterally. Abdomen is soft and nontender without guarding or rebound. Positive bowel sounds. Neurological examination nonfocal, nonlateralizing. Moves all extremities. HEENT examination demonstrates PERRL, EOMI. Tacky mucous membranes. Const Vital Signs: 02/06/25 19:12 02/06/25 19:12 02/06/25 19:14 Temperature 99.5 F H 99.5 F H Temperature Source Oral Oral Pulse Rate 112 H 112 H Respiratory Rate 24 H 24 H Blood Pressure 85/51 L 83/50 L 83/50 L Blood Pressure Mean 62 61 61 Pulse Ox 95 94 Oxygen Delivery Method 02/06/25 19:18 02/06/25 19:42 02/06/25 19:45 Temperature Temperature Source Pulse Rate 108 H Respiratory Rate 20 H Blood Pressure 124/58 H 125/78 H Blood Pressure Mean 80 93 Pulse Ox 98 Oxygen Delivery Method Room Air 02/06/25 19:45 02/06/25 19:46 02/06/25 20:00 Temperature Temperature Source Pulse Rate 113 H Respiratory Rate 29 H Blood Pressure 125/78 H 106/84 H Blood Pressure Mean 93 93 Pulse Ox Oxygen Delivery Method 02/06/25 20:04 02/06/25 20:15 02/06/25 20:30 Temperature Temperature Source Pulse Rate Respiratory Rate Blood Pressure 117/94 H Blood Pressure Mean 103 Pulse Ox 68 95 96 Oxygen Delivery Method 02/06/25 20:45 02/06/25 20:46 02/06/25 21:04 Temperature Temperature Source Pulse Rate 115 H Respiratory Rate 23 H Blood Pressure 127/77 H Blood Pressure Mean 92 Pulse Ox 85 Oxygen Delivery Method 02/06/25 21:05 02/06/25 21:50 Temperature 101.2 F H Temperature Source Pulse Rate 118 H 117 H Respiratory Rate 19 H 21 H Blood Pressure 135/46 H 117/79 Blood Pressure Mean 66 91 Pulse Ox 93 Oxygen Delivery Method Sepsis Attestation Sepsis Alert: Yes Sepsis Attestation: Agree w/Sepsis Date exam was performed: 02/06/25 Time exam was performed: 21:01 Possible Source of Sepsis: Genitourinary Sepsis Organ Dysfunction Criteria Present: SBP < 90 mmHg or MAP < 65 mmHg, Creatinine > 2.0 mg/dL and Lactic Acid > 2 mmol/L Supportive Findings: Patient spiked a fever while in the emergency department. Remains tachycardic. Hypotension resolved. Fluid Resuscitation Fluid resuscitation indicated?: Yes Fluid Resuscitation ordered: 30 ml/kg fluid bolus ordered Amount of fluid ordered: 2,000 Reason for lesser fluid bolus:: Renal Failure Sepsis Note Date exam was performed: 02/06/25 Time exam was performed: 22:02 Sepsis Attestation: Sepsis re-evaluation was performed Response to fluids: Fluid responsive hypotension MDM MDM MDM Narrative Medical decision making narrative: The differential diagnosis includes but not limited to sepsis from intra-abdominal process versus gastroenteritis versus dehydration versus intravascular volume depletion. Comprehensive workup was pursued. Patient hypotensive in triage with temperature of 99.5 degrees and mild tachycardia. Sepsis protocol entered per RN. I reviewed her laboratory work and she has an elevated white count of 26.1 with hemoglobin 13.7, hematocrit 41.6, platelet count normal at 214. INR is 1.3 with a PTT 30.6. Electrolyte panel shows hyponatremia of 130 with potassium slightly elevated at 5.3, chloride low at 89. BUN of 35 and acute kidney injury with creatinine elevated 2.59. Glucose is elevated at 108, lactic acid 3.4. She was receiving 2 L of normal saline. Her blood pressure has elevated to 135/46 but she remains tachycardic. AST of 39 with alk phos 147. I reviewed the radiology report of the CT of the abdomen pelvis with IV contrast. She does have an 8 mm stone in the renal pelvis causing hydronephrosis and pyelonephritis. Urinalysis is currently pending, however she was started on Rocephin 2 g intravenously. Her urinalysis did return with greater than 100 WBCs and 4+ bacteria. Given her obstructing stone, pyelonephritis, and sepsis, I discussed patient with Dr. Cam with urology in the event that she would need a procedure including stenting or nephrostomy tube. He stated that he would like the hospitalist to admit the patient, and he will take her to the OR for procedure tomorrow morning. I discussed the patient with Dr. Kendrick for admission. Patient is in guarded condition. Disposition is admitted to the ICU. History & Record Review Discussion w/independent historian: Patient Additional record(s) reviewed:: Prior ED visit Lab Data Attestation: I reviewed the patient's lab results. Labs: Laboratory Results - last 24 hr 02/06/25 02/06/25 19:40 21:00 WBC 26.1 H RBC 4.53 Hgb 13.7 Hct 41.6 MCV 91.8 MCH 30.2 MCHC 32.9 RDW Std Deviation 47.1 H RDW Coeff of Tavia 14.0 Plt Count 214 MPV 11.8 Immature Gran % (Auto) 4.300 H Neut % (Auto) 88.4 H Lymph % (Auto) 4.1 L [place] % (Auto) 2.5 Eos % (Auto) 0.0 Baso % (Auto) 0.7 Absolute Neuts (auto) 23.1 H Absolute Lymphs (auto) 1.06 Nucleated RBC % 0 Differential Comment SCANNED PT 16.2 H INR 1.3 APTT 30.6 Sodium 130 L Potassium 5.3 H Chloride 89 L Carbon Dioxide 22.3 Anion Gap 18 H BUN 35 H Creatinine 2.59 H Estim Creat Clear Calc 26.31 L Est GFR (MDRD) Non-Af 20 L BUN/Creatinine Ratio 13.6 Glucose 108 H Lactic Acid 3.4 H* Calcium 9.2 Total Bilirubin 0.60 AST 39 H ALT 23 Alkaline Phosphatase 147 H Total Protein 7.9 Albumin 3.6 Globulin 4.3 H Albumin/Globulin Ratio 0.9 Urine Color Yellow Urine Clarity Cloudy Urine pH 5.0 Ur Specific [place] 1.015 Urine Protein 500 H Urine Glucose (UA) Normal Urine Ketones 5 H Urine Occult Blood 150 H Urine Nitrite Negative Urine Bilirubin 1 H Urine Urobilinogen Normal Ur Leukocyte Esterase 500 H Urine RBC 0 SEEN Urine WBC >100 SEEN Ur Squamous Epith Cells 5-10 SEEN Urine Bacteria 4+ Hyaline Casts 5-10 SEEN Urine Mucus 0 SEEN Radiography Diagnostic Testing: Clinical Impression(s) from Imaging Studies Abdomen/Pelvis CT 02/06/25 19:26 IMPRESSION: 1. Acute pyelonephritis of the left kidney, with a stone at the left renal pelvis measuring 8 mm. Consider Urology consultation. 2. Additional findings to include hiatal hernia, colonic diverticulosis, and left lung base atelectasis versus tiny pleural effusion. Reading Location: [id number] Chest X-Ray 02/06/25 19:47 IMPRESSION: No acute cardiopulmonary abnormality. Reading Location: [id number] Critical Care Time Critical Care Time: Yes Critical care time (excluding procedures): 30-74 minutes (32), Including time spent:, Discussing w/Patient &/or Family/Product Marketing Director, Discussing w/Consultants (Discussed with Dr. Cam with urology), Arranging Admission or Transfer and Performing Direct Patient Care at Bedside Discharge Plan Dx/Rx/DC Orders Clinical Impression: Calculus of renal pelvis, Pyelonephritis, Severe sepsis Disposition Disposition: [facility]
[2025-02-06] MEDS: 0.9% Normal Saline (1000mL) 1,000 ML 999 ML IV ×3 (19:47→22:47)
--- NOTE | 2025-02-06 19:47 | RAD_ITS ---
PROCEDURE: CHEST 1 VIEW (PORTABLE) 02/06/2025 REASON FOR EXAM: FEVER TECHNIQUE: Frontal view of the chest. COMPARISON: None FINDINGS: Hardware: Right shoulder arthroplasty Heart: The heart size is normal. Aortic atherosclerosis. Lungs: No focal consolidation or pleural effusion. Bones: Degenerative changes are identified within the thoracic spine. RAD/Chest 1 View (Portable) IMPRESSION: No acute cardiopulmonary abnormality. Reading Location: [id number]
[2025-02-06 19:54] LABS: Absolute Lymphocyte Count 1.06 X10^3/uL (0.83-4.51); Absolute Neutrophil Count 23.1 X10^3/uL (2.0-7.7); Basophil# 0.18 X10^3/uL; Basophil% 0.7 % (0-1); Hematocrit 41.6 % (37-47); Hemoglobin 13.7 g/dL (12.0-15.0); Lymphocyte # 1.06 X10^3/ul (0.83-4.51); Lymphocyte % 4.1 % (19-41); Mean Corp Hgb Conc 32.9 g/dL (32-36); Mean Corpuscular Hgb 30.2 pg (27.0-32.0); Mean Corpuscular Volume 91.8 fL (81-99); Mean Platelet Vol. 11.8 fl (6.2-12.0); Monocyte# 0.65 X10^3/uL; Monocyte% 2.5 % (0-10); NRBC Flagged by Analyzer 0 % (0-5); Neutrophil # 23.09 X10^3/uL (2.7-7.7); Neutrophil % 88.4 % (47-70); POSITIVE DIFFERENTIAL YES; Platelet Count 214 K/mm3 (150-450); RBC Distribution Width SD 47.1 fl (35.1-43.9); Red Blood Count 4.53 M/mm3 (4.2-5.4); White Blood Count 26.1 K/mm3 (4.4-11.0)
[2025-02-06 20:08] LABS: Differential Indicated SCAN CRITERIA MET
[2025-02-06 20:26] LABS: International Normalized Ratio 1.3; Partial Thromboplast Time 30.6 Seconds (24.1-36.2); Prothrombin Time (Protime)PT. 16.2 SECONDS (11.7-14.9)
[2025-02-06 21:07] LABS: ALB/GLOB Ratio 0.9 RATIO (0.9-2.4); AST(SGOT) 39 U/L (<=31); Alanine Aminotransfer ALT/SGPT 23 U/L (<=34); Albumin, Serum 3.6 g/dL (3.4-4.8); Alkaline Phosphatase 147 U/L (35-104); Anion Gap 18 (5-15); BUN 35 mg/dL (4-19); BUN/Creat Ratio 13.6 RATIO (10-20); Calcium,Total 9.2 mg/dL (7.6-11.0); Carbon Dioxide 22.3 mmol/L (21.0-32.0); Chloride 89 mmol/L (98-108); Creatinine, Serum 2.59 mg/dL (0.70-1.20); Differential Comment SCANNED; EST Glomerular Filtration Rate 20 (>60); Estimated Creatinine Clearance 26.31 ml/min (50-250); Globulin 4.3 g/dL (2.2-4.2); Glucose 108 mg/dL (70-99); Potassium 5.3 mmol/L (3.3-5.1); Protein, Total 7.9 g/dL (5.9-8.4); Sodium Level 130 mmol/L (133-145)
[2025-02-06 21:11] LABS: Lactic Acid 3.4 mmol/L (0.0-2.0)
[2025-02-06 21:18] LABS: Mucous, Urine 0 SEEN /hpf (<or=2+); Red Blood Cells-Urine 0 SEEN /hpf (0-5)
[2025-02-06 21:26] LABS: Color, Urine Yellow (Yellow); Glucose, Dipstick Normal (Normal); Ketone-Dipstick 5 mg/dl (Negative); Leukocyte Esterase-Dipstick 500 /ul (Negative); Nitrite-Dipstick Negative (Negative); Occult Blood-Urine 150 /ul (Negative); Protein-Dipstick 500 mg/dl (Negative); Specific Gravity, Urine 1.015 (1.002-1.030); Urine Clarity Cloudy (Clear); Urine Urobilinogen Normal (Normal)
[2025-02-06 21:28] LABS: Urine Bilirubin Dipstick 1 mg/dL (Negative)
[2025-02-06] MEDS: Ceftriaxone 2 GM in 0.9% Normal Saline (50mL MB+) 50 ML IV (21:38)
[2025-02-06 21:50] LABS: Bacteria 4+ /hpf (None Seen); Hyaline Cast 5-10 SEEN /lpf (0-5); Squamous Epithelial Cells - UA 5-10 SEEN /hpf (5-10); White Blood Cells >100 SEEN /hpf (0-5)
--- NOTE | 2025-02-06 21:55 | PCM.HP.STD ---
HPI - General General Date of Admission: 02/06/25 Date of Service: 02/06/25 Chief Complaint: Nausea, Vomiting and Diarrhea. HPI Narrative ADRIANNA SHAH, is a 64 F with a past medical history of essential hypertension; on losartan and hydrochlorothiazide, hyperlipidemia; on simvastatin, obesity; with BMI of 32.8 this admission, OA, history of cholecystectomy and recent admission here from November 21, 2024 to November 22, 2024 for treatment of Right proximal humeral fracture; s/p Right reverse total shoulder arthroplasty who presents to [facility] ER complaining of nausea, vomiting and diarrhea. Ms. cheema with reports her symptoms began ~3 days ago with a gradual-onset of nausea followed by bilious emesis and nonbloody diarrhea with subjective fever. She states she took Tylenol with transient partial relief of her symptoms but when her fever returned today she decided to come in for further evaluation and treatment. She admits to associated fatigue and malaise. She denies associated dysuria, hematuria or other exacerbating or relieving factors. In the ER she was noted to have a CT scan of the abdomen pelvis this admission positive for evidence of Acute Pyelonephritis of the Left kidney with a stone in the Left renal pelvis measuring ~8mm with urology consultation recommended complicated by additional laboratory evidence of Severe Sepsis with Leukocytosis of 26.1K with Left-shift of 4.3% and Lactic Acidosis of 3.4 mmol/L complicated by GRISELDA; with elevated serum creatinine of 2.59 mg/dL (up from her baseline of 0.6 mg/dL last admission) with Hyperkalemia of 5.3 mmol/L present on admission compounded by Nausea, Vomiting and Diarrhea and she was then admitted to the ICU for treatment under the sepsis protocol for status is expected to extend beyond 2 midnights. [facility] Medical History Proximal humerus fracture Wears glasses High cholesterol Gastric reflux Smoker Chronic cough Hypertension Home Medications ?Medication ?Instructions ?Recorded ?Last Taken ?Type ondansetron 4 mg disintegrating 4 mg PO TID PRN nausea and 11/03/24 Unknown Rx tablet vomiting #21 tabs cholecalciferol (vitamin D3) 25 25 mcg PO DAILY 11/14/24 11/20/24 History mcg (1,000 unit) capsule (Vitamin D3) coenzyme Q10 100 mg capsule (Co 100 mg PO DAILY 11/14/24 11/20/24 History Q-10) hydrochlorothiazide 25 mg tablet 25 mg PO DAILY 11/14/24 11/20/24 History losartan 100 mg tablet 100 mg PO DAILY 11/14/24 11/20/24 History simvastatin 20 mg tablet 20 mg PO QHS 11/14/24 11/20/24 History zolpidem 12.5 mg tablet,extended 12.5 mg PO QHS PRN PRN insomnia 11/14/24 11/20/24 History release,multiphase albuterol sulfate 90 mcg/actuation 2 puff inhalation Q4H PRN PRN 02/06/25 Unknown History aerosol inhaler wheezing Allergy/AdvReac Type Severity Reaction Status Date / Time No Known Allergies Allergy Verified 02/06/25 19:12 Surgical History History of History of cholecystectomy Social History Smoking Status: Current every day smoker tobacco type: cigarettes ROS ROS Narrative Review of Systems: Constitutional: Patient admits to fever and chills. Eyes: Patient denies change in vision or discharge from eyes. ENT: Patient denies runny nose, sore throat or ear pain. Resp: Patient denies shortness of breath or cough. CV: Patient denies chest pain, palpitations, heart racing or lower extremity edema. GI: Patient admits to nausea, vomiting with bilious emesis and nonbloody diarrhea as per HPI. : Patient denies dysuria or hematuria. MSK: Patient denies arthralgias or myalgias. Skin: Patient denies rash, abscess, wounds or jaundice. Psych: Patient denies symptoms of uncontrolled depression or anxiety. Neuro: Patient denies headache, paresthesias or focal neurologic deficits. Allergy: Patient denies lip swelling, tongue swelling or urticaria. Hematology: Patient denies easy bleeding or easy bruisability. Endocrinology: Patient denies polyuria, polydipsia, polyphagia or heat/cold intolerance. 14 point ROS otherwise negative except for positives noted above in HPI. Vital Signs Vital Signs Vital Signs: 02/06/25 19:12 02/06/25 19:12 02/06/25 19:14 Temperature 99.5 F H 99.5 F H Temperature Source Oral Oral Pulse Rate 112 H 112 H Respiratory Rate 24 H 24 H Blood Pressure 85/51 L 83/50 L 83/50 L Blood Pressure Mean 62 61 61 Pulse Ox 95 94 Oxygen Delivery Method 02/06/25 19:18 02/06/25 19:42 02/06/25 19:45 Temperature Temperature Source Pulse Rate 108 H Respiratory Rate 20 H Blood Pressure 124/58 H 125/78 H Blood Pressure Mean 80 93 Pulse Ox 98 Oxygen Delivery Method Room Air 02/06/25 19:45 02/06/25 19:46 02/06/25 20:00 Temperature Temperature Source Pulse Rate 113 H Respiratory Rate 29 H Blood Pressure 125/78 H 106/84 H Blood Pressure Mean 93 93 Pulse Ox Oxygen Delivery Method 02/06/25 20:04 02/06/25 20:15 02/06/25 20:30 Temperature Temperature Source Pulse Rate Respiratory Rate Blood Pressure 117/94 H Blood Pressure Mean 103 Pulse Ox 68 95 96 Oxygen Delivery Method 02/06/25 20:45 02/06/25 20:46 02/06/25 21:04 Temperature Temperature Source Pulse Rate 115 H Respiratory Rate 23 H Blood Pressure 127/77 H Blood Pressure Mean 92 Pulse Ox 85 Oxygen Delivery Method 02/06/25 21:05 02/06/25 21:50 Temperature 99 F Temperature Source Pulse Rate 118 H 117 H Respiratory Rate 19 H 21 H Blood Pressure 135/46 H 117/79 Blood Pressure Mean 66 91 Pulse Ox 93 Oxygen Delivery Method Weight Weight: 209 lb 6.4 oz Body Mass Index (BMI) 32.8 Results Lab / Micro Data 02/06/25 19:40 02/06/25 19:40 Labs: Laboratory Results - last 24 hr 02/06/25 19:40: WBC 26.1 H, RBC 4.53, Hgb 13.7, Hct 41.6, MCV 91.8, MCH 30.2, MCHC 32.9, RDW Std Deviation 47.1 H, RDW Coeff of Tavia 14.0, Plt Count 214, MPV 11.8, Immature Gran % (Auto) 4.300 H, Neut % (Auto) 88.4 H, Lymph % (Auto) 4.1 L, [place] % (Auto) 2.5, Eos % (Auto) 0.0, Baso % (Auto) 0.7, Absolute Neuts (auto) 23.1 H, Absolute Lymphs (auto) 1.06, Nucleated RBC % 0, Differential Comment SCANNED, PT 16.2 H, INR 1.3, APTT 30.6, Sodium 130 L, Potassium 5.3 H, Chloride 89 L, Carbon Dioxide 22.3, Anion Gap 18 H, BUN 35 H, Creatinine 2.59 H, Estim Creat Clear Calc 26.31 L, Est GFR (MDRD) Non-Af 20 L, BUN/Creatinine Ratio 13.6, Glucose 108 H, Lactic Acid 3.4 H*, Calcium 9.2, Total Bilirubin 0.60, AST 39 H, ALT 23, Alkaline Phosphatase 147 H, Total Protein 7.9, Albumin 3.6, Globulin 4.3 H, Albumin/Globulin Ratio 0.9 02/06/25 21:00: Urine Color Yellow, Urine Clarity Cloudy, Urine pH 5.0, Ur Specific [place] 1.015, Urine Protein 500 H, Urine Glucose (UA) Normal, Urine Ketones 5 H, Urine Occult Blood 150 H, Urine Nitrite Negative, Urine Bilirubin 1 H, Urine Urobilinogen Normal, Ur Leukocyte Esterase 500 H, Urine RBC 0 SEEN, Urine WBC >100 SEEN, Ur Squamous Epith Cells 5-10 SEEN, Urine Bacteria 4+, Hyaline Casts 5-10 SEEN, Urine Mucus 0 SEEN Imaging Radiology Impression Abdomen/Pelvis CT 02/06/25 19:26 IMPRESSION: 1. Acute pyelonephritis of the left kidney, with a stone at the left renal pelvis measuring 8 mm. Consider Urology consultation. 2. Additional findings to include hiatal hernia, colonic diverticulosis, and left lung base atelectasis versus tiny pleural effusion. Reading Location: [id number] Chest X-Ray 02/06/25 19:47 IMPRESSION: No acute cardiopulmonary abnormality. Reading Location: [id number] Assessment & Plan Assessment/Plan (1) Severe sepsis: (2) Pyelonephritis: (3) Calculus of renal pelvis: (4) GRISELDA (acute kidney injury): (5) Lactic acidosis: (6) Nausea vomiting and diarrhea: (7) Obesity (BMI 30.0-34.9): PLAN: Plan 1. Severe Sepsis; with CT scan of the abdomen and pelvis this admission positive for evidence of Acute Pyelonephritis of the Left kidney with a stone in the Left renal pelvis measuring ~8mm with urology consultation recommended - Admit to ICU for treatment under the Sepsis protocol. Continue antibiotic treatment with IV piperacillin-tazobactam and await culture and sensitivity data. Urologist on-call was contacted by the ER physician with strong recommendation made for urgent intervention. Keep strict NPO for impending ureteral stent placement. Give IV ondansetron prn for nausea and vomiting. Give IM promethazine prn for breakthrough nausea. Give acetaminophen prn for [id number] (level 1-5/10) pain or fever. Give morphine prn for severe (level 6-10/10) pain. Finally, we will consult correctional corporal to see this patient on-rounds for further recommendations with help appreciated in advance. 2. GRISELDA; with elevated serum creatinine of 2.59 mg/dL (up from her baseline of 0.6 mg/dL last admission) plus Hyperkalemia of 5.3 mmol/L present on admission complicating #1 - Give vigorous volume resuscitation as per Sepsis protocol. Check renal indices daily to follow trend. 3. Lactic Acidosis of 3.4 mmol/L present on admission compounding #1 & #2 - Serialize lactate as per Sepsis protocol to follow trend. 4. Nausea, Vomiting and Diarrhea adding to the medical complexity of #1 - #3 - Check stool studies and place on enteric precautions. Give pantoprazole 40 g IV daily. We will give antiemetic prn as outlined in #1. 5. Obesity; with BMI of 32.8 this admission adding to the burden of disease outlined from #1 - #4 - Weight loss will be recommended. Check TSH. This complicates her case and may hamper recovery. 6. Recent admission here from November 21, 2024 to November 22, 2024 for treatment of Right proximal humeral fracture; s/p Right reverse total shoulder arthroplasty - Noted. 7. Essential hypertension; on losartan and hydrochlorothiazide - Hold scheduled antihypertensives in light of #1 & #2. 8. Hyperlipidemia; on simvastatin - Restart statin when patient is cleared for oral intake. 9. History of cholecystectomy - Noted. 10. OA - Stable. 11. DVT/GI prophylaxis - SCD's only with impeding urologic procedure as outlined in #1. Pantoprazole 40 mg IV daily. Total time: Approximately (but not less than) 75 minutes. Sepsis Attestation Sepsis Alert: Yes Sepsis Attestation: Agree w/Sepsis Date exam was performed: 02/06/25 Time exam was performed: 22:15 Possible Source of Sepsis: Genitourinary Sepsis Organ Dysfunction Criteria Present: Creatinine > 2.0 mg/dL and Lactic Acid > 2 mmol/L Fluid Resuscitation Fluid resuscitation indicated?: Yes Fluid Resuscitation ordered: 30 ml/kg fluid bolus ordered Amount of fluid ordered: 3 Sepsis Note Date exam was performed: 02/07/25 Time exam was performed: 02:15 Sepsis Attestation: Sepsis re-evaluation was performed Response to fluids: Fluid responsive hypotension Charges/Coding Visit Charges Inpatient E&M: 50491 Init Hosp L3
[2025-02-06] MEDS: Acetaminophen 500 MG Tablet 1000 MG PO (22:03)
--- OUTSIDE RECORDS SUMMARY | 2025-02-06 23:22 | XMS RPT_ITS | CCD ---
Author Organization [facility] CliniSymn Care Team Providers Care [employer] Equipment [employer] Instructor Name Role Phone Deepak Rivers MD Primary Care Provider Deepak Rivers MD Primary Care Provider Natalie MASON APPRENTICE.Nuzhat SHAY Unavailable Arsen MASON APPRENTICE.Nigel SHAY Unavailable Dr. Deepak Rivers MD Primary Care Provider Dr. Luis Geiger DO Emergency Provider Lyly Hartmann Attending Provider Lyly Hartmann Referring Provider Dr. Maurice Cutler MD Attending Provider Dr. Luis Geiger DO Attending Provider Dr. Man Flores DO Admit Provider Dr. Man Flores DO Attending Provider Dr. Man Flores DO Referring Provider Natalie MASON APPRENTICE.Nuzhat SHAY Unavailable Unavail able DEEPAK RIVERS Primary Care Unavailable DEEPAK RIVERS Attending Unavailable DEEPAK RIVERS Primary Care Unavailable DEEPAK RIVERS Referring Unavailable DEEPAK RIVERS Primary Care Unavailable DEEPAK RIVERS Attending Unavailable NUZHAT ESTRADA Attending Unavailable DEEPAK RIVERS Primary Care Unavailable Lyly Teixeira Referring Unavailable Deepak Rivers Primary Care Unavailable Lyly Teixeira Attending Unavailable Deepak Rivers Primary Care Unavailable Lyly Teixeira Attending Unavailable Lyly Teixeira Referring Unavailable [facility], Deepak Primary Care Unavailable Man Flores Admitting Unavailable Man Flores Attending Unavailable Man Flores Referring Unavailable [facility] Primary Care Unavailable Maurice Cutler Attending Unavailable Puneet Lyly Referring Unavailable [facility] Primary Care Unavailable Lyly Teixeira Attending Unavailable Luis Geiger Attending Unavailable [facility] Primary Care Unavailable Seb Ernandez MD Referring Provider Seb Ernandez MD Emergency Provider Dr. Aakash Rincon DO Admit Provider Unavail able Dr. Aakash Rincon DO Attending Provider Unav ailable Allergies Allergy Classification Reported Allergen(s) Allergy Type Date of Onset Reaction(s) Facility (1 source) Unable to Assess Drug allergy (disorder) 11-03-2024 [facility] Repository Medications Current Medications Medication Drug Class(es) Dates Sig (Normalized) Sig (Original) [id number] 200 actuat albuterol 0.09 mg/actuat metered dose inhaler (20 sources) beta2-Adrenergic Agonist Start: 02-06-2025 Albuterol Sulfate 90 mcg/actuation HFA aerosol inhaler Active 2 NMA INHALATION EVERY 4 HOURS NEEDED as needed for wheezing February 06, 2025 12:00am Start: 11-30-2023 take 2 puff(s) by in halation every four hours as needed for wheezing albuterol HFA (PROAIR HFA) 90 mcg/actuation inhaler Indications: acute asthma attack Inhale 2 Puffs as instructed every 4 hours as needed for wheezing/shortness of breath. 1 Each 3 11/30/2023 Active Start: 04-28-2022 End: 11-28-2023 take 2 puff(s) by inhalation every four hours as needed for wheezing albuterol HFA (PROAIR HFA) 90 mcg/actuation inhaler Indications: acute asthma attack Inhale 2 Puffs as instructed every 4 hours as needed for wheezing/shortness of breath. 1 Each 3 04/28/2022 11/28/2023 Discontinued Comment on above: Inhale 2 Puffs as in structed every 4 hours as needed for wheezing/shortness of breath. amLODIPine 10 mg oral tablet (20 sources) Dihydropyridine Calcium Channel Curtis Start: 11-30-19 24 take 1 tablet by mouth once daily amLODIPine (NORVASC) 10 mg tablet Take 1 tablet by mouth once daily. 30 tablet 11 11/30/2023 Active Start: 08-07-2023 End: 11-28-2023 take 1 tablet by mouth once daily amLODIPine (NORVASC) 10 mg tablet Take 1 tablet by mouth once daily. 30 tablet 11 08/07/2023 11/28/2023 Discontinued Start: 02-12-2023 take 1 tablet by madai th once daily amLODIPine (NORVASC) 5 mg tablet Indications: Hypertension, unspecified type Take 1 tablet by mouth once daily. 30 tablet 11 02/12/2023 Active Comment on above: Take 1 tablet by madai th once daily. cholecalciferol 0.025 mg oral capsule (20 sources) Vitamin D Start: 11-15-19 take 1 capsule by mouth once daily Cholecalciferol (Vitamin D3) (Vitamin D3) 25 mcg (1,000 unit) capsule Active 25 ug PO DAILY November 14, 2024 12:00am Start: 07-17-2017 take 1 capsule by mo [facility] once daily cholecalciferol, vitamin D3, (VITAMIN D3) 4,000 unit cap 1 po daily 0 07/17/2017 Active Comment on above: 1 po daily hydroCHLOROthiazide 25 mg oral tablet (20 sources) Thiazide Diuretic Start: take 1 tablet by mouth once daily Hydrochlorothiazide 25 mg tablet Active 25 mg PO DAILY November 14, 2024 12:00am Start: 02-16-2023 End: 02-09-2024 take 1 tablet by mouth once daily hydroCHLOROthiazide 25 mg tablet Indications: Hypertension, unspecified type Take 1 tablet by mouth once daily. 30 tablet 11 02/09/2024 Active Start: 09-09-2021 take 1 tablet by madai th once daily hydroCHLOROthiazide (HYDRODIURIL, ESIDRIX) 25 mg tablet Take 1 tablet by mouth once daily. 30 tablet 11 09/09/2021 Active Comment on above: Take 1 tablet by madai th once daily. losartan potassium 100 mg oral tablet (20 sources) Angiotensin 2 Receptor Curtis Start: 11-14-2024 take 1 tablet by mouth once daily Losartan 100 mg tablet Active 100 mg PO DAILY November 14, 2024 12:00am Start: 02-16-2023 End: 02-09-2024 take 1 tablet by mouth once daily losartan (COZAAR) 100 mg tablet Indications: Hypertension, unspecified type Take 1 tablet by mouth once daily. 30 tablet 11 02/09/2024 Active Start: 07-17-2021 take 1 tablet by madai th once daily losartan (COZAAR) 100 mg tablet Take 1 tablet by mouth once daily. 30 tablet 11 07/17/2021 Active Comment on above: Take 1 tablet by madai th once daily. ondansetron 4 mg disintegrating oral tablet (5 sources) Serotonin-3 Receptor Antagonist Start: 11-04-19 take 1 tablet by mouth three times daily as needed for nausea and vomiting Ondansetron 4 mg tablet,disintegrati ng Active 4 mg PO THREE TIMES A DAY as needed for nausea and vomiting November 03, 2024 7:31am simvastatin 20 mg oral tablet (20 sources) HMG-CoA Reductase Inhibitor Start: 11-15-19 take 1 tablet by mouth at bedtime Simvastatin 20 mg tablet Active 20 mg PO AT BEDTIME November 14, 2024 12:00am Start: 11-30-2023 End: 11-11-2024 take 1 tablet by mouth once daily at bedtime simvastatin (ZOCOR) 20 mg tablet Indications: Mixed hyperlipidemia Take 1 tablet by mouth daily at bedtime. 90 tablet 3 11/11/2024 Active Start: 08-26-2021 End: 11-28-2023 take 1 tablet by mouth once daily at bedtime simvastatin (ZOCOR) 20 mg tablet Indications: Mixed hyperlipidemia TAKE 1 TABLET BY MOUTH EVERYDAY AT BEDTIME 90 tablet 3 10/28/2022 11/28/2023 Discontinued Comment on above: Take 1 tablet by madai th daily at bedtime. TAKE 1 TABLET BY MADAI TH EVERYDAY AT BEDTIME ubidecarenone 100 mg oral capsule (20 sources) Start: Coenzyme Q10 (Co Q-10) 100 mg capsule Active 100 mg PO DAILY November 14, 2024 12:00am Comment on above: Take 1 capsule by mo [facility] once daily. zolpidem tartrate 12.5 mg extended release oral tablet (20 sources) gamma-Aminobutyric Acid-ergic Agonist Start: End: take 1 tablet by mouth at bedtime as needed Zolpidem 12.5 mg tablet,ext release multiphase Active 12.5 mg PO AT BEDTIME NEEDED as needed for insomnia November 14, 2024 12:00am Start: 09-23-2021 End: 11-12-2021 take 1 tablet by mouth at bedtime as needed zolpidem (AMBIEN CR) 6.25 mg CR tablet Indications: Primary insomnia Take 1 tablet by mouth at bedtime as needed for up to 90 days. 30 tablet 2 09/23/2021 11/12/2021 Discontinued Comment on above: Take 1 tablet by madai th at bedtime as needed for up to 90 days. Take 1 tablet by madai th at bedtime as needed for up to 90 days. Do not start before August 31, 2023. Completed/Discontinued Medications Medication Drug Class(es) Dates Sig (Normalized) Sig (Original) aspirin 81 mg delayed release oral tablet (2 sources) Platelet Aggregation Inhibitor, Nonsteroidal Anti-inflammatory Drug Start: 11-22-2024 End: 02-06-2025 take 1 tablet by mouth once daily Aspirin 81 mg Tablet,Delayed Release (Dr/Ec) Discontinued 81 mg PO DAILY@0800 28 November 22, 2024 12:00am February 06, 2025 9:40pm docusate sodium 50 mg / sennosides, snf 8.6 mg oral tablet (2 sources) Start: 11-22-2024 End: 02-06-2025 Sennosides-Docusat e Sodium (Stimulant Laxative Plus) 8.6-50 mg Tablet Discontinued 2 {tbl} PO TWICE A DAY 10 November 22, 2024 12:00am February 06, 2025 9:40pm doxycycline hyclate 100 mg oral capsule (2 sources) Tetracycline-class Drug Start: 11-22-2024 End: 02-06-2025 take 1 capsule by mouth twice daily Doxycycline Hyclate 100 mg capsule Discontinued 100 mg PO TWICE A DAY 14 November 22, 2024 12:00am February 06, 2025 9:40pm meloxicam 7.5 mg oral tablet (2 sources) Nonsteroidal Anti-inflammatory Drug Start: 11-22-2024 End: 02-06-2025 take 1 tablet by mouth twice daily Meloxicam 7.5 mg Tablet Discontinued 7.5 mg PO TWICE A DAY 60 November 22, 2024 12:00am February 06, 2025 9:40pm oxyCODONE hydrochloride 5 mg oral tablet (7 sources) Opioid Agonist Start: 11-03-2024 End: 02-06-2025 take 5-10 mg by mouth every four to six hours as needed for pain Oxycodone 5 mg Tablet Discontinued 5 - 10 mg PO .q4-6hrs prn as needed for Pain Score 4-10 30 7 November 22, 2024 February 06, 2025 9:40pm raNITIdine 150 mg oral tablet (2 sources) Histamine-2 Receptor Antagonist Start: 11-14-2024 End: 02-06-2025 take 1 tablet by mouth once daily as needed Ranitidine Hcl 150 mg tablet Discontinued 150 mg PO DAILY NEEDED November 14, 2024 12:00am February 06, 2025 9:41pm Problems Active Problems Problem Classification Problem Date Documented Da te Episodic/Chronic Acute and unspecified renal failure (2 sources) Acute renal failure syndrome; Translations: [Acute kidney failure, unspecified] 02-06-2025 Episodic Calculus of urinary tract (2 sources) Calculus in renal pelvis; Translations: [Calculus of kidney] 02-06-2025 Episodic Chronic obstructive pulmonary disease and bronchiectasis (20 sources) Pulmonary emphysema; Translations: [Emphysema, unspecified] Onset: 08-30-2019 08-30-2019 Chronic Disorders of lipid metabolism (20 sources) Mixed hyperlipidemia; Translations: [Mixed hyperlipidemia] Onset: 2018 Chronic E Codes: Fall (5 sources) Accidental fall ; Translations: [Unspecified fall, initial encounter] 11-03-2024 Episodic Essential hypertension (20 sources) Hypertensive disorder; Translations: [Essential (primary) hypertension] Onset: 08-15-2022 Chronic Fluid and electrolyte disorders (2 sources) Lactic acidosis; Translations: [Lactic acidosis] 02-06-2025 Episodic Fracture of upper limb (10 sources) Fracture of shoulder; Translations: [Fracture of unspecified shoulder girdle, part unspecified, initial encounter for closed fracture] Onset: 12-05-2024 11-03-2024 Episodic Immunizations and screening for infectious disease (1 source) Needs influenza immunization; Translations: [Encounter for immunization] 08-15-2024 Episodic Miscellaneous mental health disorders (20 sources) Primary insomnia; Translations: [Primary insomnia] Onset: 05-11-2015 Chronic Nausea and vomiting (2 sources) Nausea, vomiting and diarrhea; Translations: [Nausea with vomiting, unspecified] 02-06-2025 Episodic Nutritional deficiencies (20 sources) Vitamin D deficiency; Translations: [Vitamin D deficiency, unspecified] Onset: 04-21-2017 Chronic Other connective tissue disease (2 sources) History of operative procedure on shoulder; Translations: [Presence of unspecified artificial shoulder joint] 11-22-2024 Chronic Other connective tissue disease (1 source) Pain in right arm; Translations: [Pain in right arm] Onset: 11-11-2024 Episodic Other nutritional; endocrine; and metabolic disorders (2 sources) Obese class I; Translations: [Class 1 obesity] 02-06-2025 Chronic Otitis media and related conditions (1 source) Dysfunction of bilateral eustachian tubes; Translations: [Unspecified Eustachian tube disorder, bilateral] 06-17-2023 Episodic Septicemia (except in labor) (2 sources) Sepsis; Translations: [Sepsis, unspecified organism] 02-06-2025 Episodic Unclassified (5 sources) Right shoulder fracture Urinary tract infections (2 sources) Pyelonephritis; Translations: [Tubulo-interstitia l nephritis, not specified as acute or chronic] 02-06-2025 Episodic Past or Other Problems Problem Classification Problem Date Documented Da te Episodic/Chronic Diabetes mellitus without complication (7 sources) Increased glucose level; Translations: [Other abnormal glucose] Onset: 04-08-2024 Episodic Other nutritional; endocrine; and metabolic disorders (20 sources) Weight gain; Translations: [Abnormal weight gain] Onset: 05-11-2015 08-12-2021 Episodic Other nutritional; endocrine; and metabolic disorders (8 sources) Weight increased; Translations: [Abnormal weight gain] Onset: 05-11-2015 08-12-2021 Episodic Other screening for suspected conditions (not mental disorders or infectious disease) (20 sources) Patient encounter status; Translations: [Encounter for screening for malignant neoplasm of colon] Onset: 04-08-2019 Episodic Other skin disorders (20 sources) Sebaceous cyst of skin; Translations: [Sebaceous cyst] Onset: 05-25-2015 05-25-2015 Episodic Residual codes; unclassified (20 sources) Tobacco user; Translations: [Tobacco use] Onset: 05-11-2015 Episodic Residual codes; unclassified (1 source) Tobacco use; Translations: [Tobacco abuse disorder] Onset: 08-12-2021 Episodic Unclassified (1 source) Patient encounter status 09-24-2024 Results Test Name Value Interpretation Reference Range Facility Absolute lymphocyte countOrd ered By: Seb Ernandez on 02-06-2025 Lymphocytes Auto (Unsp spec) [#/Vol] 1.06 10*3/uL 0.83-4.51 [facility] Absolute neutrophil countOrd ered By: Seb Ernandez on 02-06-2025 Neutrophils (Bld) [#/Vol] 23.1 10*3/uL High 2.0-7.7 [facility] Activated partial thrombopla stin time (aPTT) in platelet poor plasma by coagulation aOrdered By: Seb Ernandez on 02-06-2025 aPTT Coag (PPP) [Time] 30.6 s 24.1-36.2 [facility] Anion gap in Serum or Plasma Ordered By: Seb Ernandez on 02-06-2025 Anion gap [Moles/Vol] 18 mmol/L High 5-15 [facility] Automated lymphocyte count a s percentage of total leukocytesOrdered By: Seb Ernandez on 02-06-2025 Lymphocytes/100 WBC Auto (Unsp spec) 4.1 % Low 19-41 [facility] BUN/creatinine ratioOrdered By: Seb Ernandez on 02-06-2025 Urea nitrogen/Creatinine [Mass ratio] 13.6 mg/mg 10-20 [facility] Basophil percentageOrdered B y: Seb Ernandez on 02-06-2025 Basophils/100 WBC (Bld) 0.7 % 0-1 [facility] Bilirubin Test strip Ql (U)O rdered By: Seb Ernandez on 02-06-2025 Bilirubin Ql (U) 1 mg/dL High Negative [facility] Comment on above: COLOR OF URINE MAY A FFECT DIPSTICK RESULTS. Bilirubin, totalOrdered By: Seb Ernandez on 02-06-2025 Bilirubin [Mass/Vol] 0.60 mg/dL 0.00-1.30 [facility] Blood manual differential co mment interpretation (narrative result)Ordered By: Seb Ernandez on 02-06-2025 Manual differential comment Stevie (Bld) [Interp] SCANNED [facility] Carbon dioxide, total [Moles /volume] in Central venous bloodOrdered By: Seb Ernandez on 02-06-2025 CO2 [Moles/Vol] 22.3 mmol/L 21.0-32.0 [facility] Chloride assayOrdered By: Nilesh Ernandez on 02-06-2025 Chloride [Moles/Vol] 89 mmol/L Low 98-108 [facility] Eosinophil percentageOrdered By: Seb Ernandez on 02-06-2025 Eosinophils/100 WBC (Bld) 0.0 % 0-5 [facility] Erythrocyte distribution wid th ratioOrdered By: Seb Ernandez on 02-06-2025 Erythrocyte distribution width (RBC) [Ratio] 14.0 % 11.6-14.6 [facility] Erythrocyte distribution wid th standard deviationOrdered By: Seb Ernandez on 02-06-2025 Erythrocyte distribution width (RBC) [Ratio] 47.1 fl High 35.1-43.9 [facility] Glomerular filtration rate ( GFR) estimation/1.73 sq m using serum, plasma, or whole bOrdered By: Seb Ernandez on 02-06-2025 GFR/1.73 sq M.predicted among non-blacks MDRD (S/P/Bld) [Vol rate/Area] 20 mL/min/{1.73_m2} Low >60 [facility] Comment on above: mL/min/1.73m2 CKD-EP I Creatinine Equation (2020) Hematocrit Auto (Bld) [Volum e fraction]Ordered By: Seb Ernandez on 02-06-2025 Hematocrit (Bld) [Volume fraction] 41.6 % 37-47 [facility] Hemoglobin measurementOrdere d By: Seb Ernandez on 02-06-2025 Hemoglobin (Bld) [Mass/Vol] 13.7 g/dL 12.0-15.0 [facility] Hyaline casts LM.LPF (Urine sed) [#/Area]Ordered By: Seb Ernandez on 02-06-2025 Hyaline casts (Urine sed) [#/Area] 5 /[LPF] 0-5 [facility] Immature granulocytes/100 WB C Auto (Bld)Ordered By: Seb Ernandez on 02-06-2025 Immature granulocytes/100 WBC (Bld) 4.300 % High 0.0-0.9 [facility] Comment on above: IG% - Immature Granu locytes (promyelocytes, myelocytes and metamyelocytes) > 1% indicates that a LEFT SHIFT is Present. International normalized rat io (INR) calculationOrdered By: Seb Ernandez on 02-06-2025 INR Coag (Bld) [Relative time] 1.3 {INR} [facility] Ketones Test strip Ql (U)Ord ered By: Seb Ernandez on 02-06-2025 Ketones Ql (U) 5 mg/dl High Negative [facility] Laboratory - Chemistry and C hemistry - challengeOrdered By: Seb Ernandez on 02-06-2025 AST [Catalytic activity/Vol] 39 U/L High <32 [facility] Comment on above: Hemolysis present, R esults could be affected. Lactic acid measurementOrder ed By: Seb Ernandez on 02-06-2025 Lactate [Moles/Vol] 3.4 mmol/L High 0.0-2.0 [facility] Comment on above: Critical Result(s) C alled at: 2109 to Stoney GRAVES by: karlie. Results read back by same. MCV (mean corpuscular volume ) determinationOrdered By: Seb Ernandez on 02-06-2025 MCV (RBC) [Entitic vol] 91.8 fL 81-99 [facility] Mean corpuscular hemoglobin (MCH) determinationOrdered By: Seb Ernandez on 02-06-2025 MCH (RBC) [Entitic mass] 30.2 pg 27.0-32.0 [facility] Mean corpuscular hemoglobin concentration (MCHC) determinationOrdered By: Seb Ernandez on 02-06-2025 MCHC (RBC) [Mass/Vol] 32.9 g/dL 32-36 [facility] Mean platelet volume determi nationOrdered By: Seb Ernandez on 02-06-2025 Platelet mean volume (Bld) [Entitic vol] 11.8 fL 6.2-12.0 [facility] Microscopic analysis of urin e for red blood cells (RBC)Ordered By: Seb Ernandez on 02-06-2025 Microscopic analysis of urine for red blood cells (RBC) 0 SEEN /hpf 0-5 [facility] Monocyte percentageOrdered B y: Seb Ernandez on 02-06-2025 Monocytes/100 WBC (Bld) 2.5 % 0-10 [facility] Mucus LM Ql (Urine sed)Order ed By: Seb Ernandez on 02-06-2025 Mucus Ql (Urine sed) 0 SEEN /hpf [facility] Neutrophil percentageOrdered By: Seb Ernandez on 02-06-2025 Neutrophils/100 WBC (Bld) 88.4 % High 47-70 [facility] Nitrite Test strip Ql (U)Ord ered By: Seb Ernandez on 02-06-2025 Nitrite Ql (U) Negative Negative [facility] Nucleated red blood cell per centageOrdered By: Seb Ernandez on 02-06-2025 Nucleated RBC/100 WBC (Bld) [Ratio] 0 % 0-5 [facility] Platelet countOrdered By: Nilesh Ernandez on 02-06-2025 Platelets (Bld) [#/Vol] 214 10*3/uL 150-450 [facility] Potassium measurement (mass/ volume)Ordered By: Seb Ernandez on 02-06-2025 Potassium (Unsp spec) [Mass/Vol] 5.3 mmol/L High 3.3-5.1 [facility] Comment on above: Hemolysis present, R esults could be affected. Protein Test strip Ql (U)Ord ered By: Seb Ernandez on 02-06-2025 Protein Ql (U) 500 mg/dl High Negative [facility] Prothrombin timeOrdered By: Seb Ernandez on 02-06-2025 PT Coag (PPP) [Time] 16.2 s High 11.7-14.9 [facility] RBC Auto (Bld) [#/Vol]Ordere d By: Seb Ernandez on 02-06-2025 RBC (Bld) [#/Vol] 4.53 10*6/uL 4.2-5.4 [facility] Serum creatinine measurement (mass/volume)Ordered By: Seb Ernandez on 02-06-2025 Creatinine [Mass/Vol] 2.59 mg/dL High 0.70-1.20 [facility] Serum globulin measurementOr dered By: Seb Ernandez on 02-06-2025 Globulin (S) [Mass/Vol] 4.3 g/dL High 2.2-4.2 [facility] Serum glucose measurement (m ass/volume)Ordered By: Seb Ernandez on 02-06-2025 Glucose [Mass/Vol] 108 mg/dL High 70-99 [facility] Serum or plasma alanine irizarry otransferase (ALT) measurementOrdered By: Seb Ernandez on 02-06-2025 ALT [Catalytic activity/Vol] 23 U/L <35 [facility] Comment on above: Hemolysis present, R esults could be affected. Serum or plasma albumin kenneth urement (mass/volume)Ordered By: Seb Ernandez on 02-06-2025 Albumin [Mass/Vol] 3.6 g/dL 3.4-4.8 [facility] Serum or plasma albumin/glob ulin mass ratioOrdered By: Seb Ernandez on 02-06-2025 Albumin/Globulin [Mass ratio] 0.9 {ratio} 0.9-2.4 [facility] Serum or plasma alkaline ruddy sphatase measurementOrdered By: Seb Ernandez on 02-06-2025 ALP [Catalytic activity/Vol] 147 U/L High 35-104 [facility] Serum or plasma calcium kenneth urement (mass/volume)Ordered By: Seb Ernandez on 02-06-2025 Calcium [Mass/Vol] 9.2 mg/dL 7.6-11.0 [facility] Serum or plasma urea nitroge n measurement (mass/volume)Ordered By: Seb Ernandez on 02-06-2025 Urea nitrogen [Mass/Vol] 35 mg/dL High 4-19 [facility] Sodium levelOrdered By: Seb Ernandez on 02-06-2025 Sodium [Moles/Vol] 130 mmol/L Low 133-145 [facility] Squamous epithelial cells de tection in urine sediment by light microscopyOrdered By: Seb Ernandez on 02-06-2025 Epithelial cells.squamous LM Ql (Urine sed) 5-10 SEEN /hpf 5-10 [facility] Total proteinOrdered By: Deneen Ernandez on 02-06-2025 Protein [Mass/Vol] 7.9 g/dL 5.9-8.4 [facility] Urine clarityOrdered By: Deneen Ernandez on 02-06-2025 Clarity (U) Cloudy Clear [facility] Urine color determinationOrd ered By: Seb Ernandez on 02-06-2025 Color (U) Yellow Yellow [facility] Urine glucose detectionOrder ed By: Seb Ernandez on 02-06-2025 Glucose Ql (U) Normal mg/dl Normal [facility] Urine leukocyte esterase det ection by dipstickOrdered By: Seb Ernandez on 02-06-2025 Leukocyte esterase Test strip Ql (U) 500 /ul High Negative [facility] Urine pHOrdered By: Seb beverly on 02-06-2025 pH (U) 5.0 [pH] 5.0 - 8.0 [facility] Urine sediment bacteria coun t by microscopy (number/high power field)Ordered By: Seb Ernandez on 02-06-2025 Bacteria LM.HPF (Urine sed) [#/Area] 4 /[HPF] None Seen [facility] Urine specific gravity measu rementOrdered By: Seb Ernandez on 02-06-2025 Specific gravity (U) [Rel density] 1.015 1.002-1.030 [facility] Urine urobilinogen measureme ntOrdered By: Seb Ernandez on 02-06-2025 Urobilinogen Ql (U) Normal mg/dl Normal [facility] White blood cell (WBC) count Ordered By: Seb Ernandez on 02-06-2025 WBC (Bld) [#/Vol] 26.1 10*3/uL High 4.4-11.0 [facility] White blood cell countOrdere d By: Seb Ernandez on 02-06-2025 White blood cell count >100 SEEN /hpf 0-5 [facility] CNPNon 12-09-2024 CNPN Telephone ([facility]) SAVITAADRIANNA ([id number]) 1960 F Date Time Provider Department 12/09/24 DEEPAK RIVERS During your visit today, we recorded the following information about you: Pamella Mart, RN 12/09/2024 10:13 AM Signed Nuzhat- PT- [facility]- reports she saw pt today and BP was elevated. Pt did not take her BP medications until after BP readings obtained. 155/99 (89), and 164/91 (95). PT is seeing patient for reverse shoulder surgery, and pain probably also contributes to the elevated BP. Nuzhat advised pt to call them if the BP did not improve. Dr. Flores, surgeon is signing, just giving pcp update. Allergies As of Date: 12/09/2024 (No Known Allergies) Date Reviewed: 08/15/2024 Reviewed by: Nancy Ramirez MA - Fully Assessed Reason for Visit: Patient Update [1234] Prescriptions as of 12/09/2024 - simvastatin (ZOCOR) 20 mg tablet Take 1 tablet by mouth daily at bedtime. - Zolpidem (AMBIEN CR) 12.5 mg CR tablet Take 1 tablet by mouth at bedtime as needed for up to 90 days. - hydroCHLOROthiazide 25 mg tablet Take 1 tablet by mouth once daily. - losartan (COZAAR) 100 mg tablet Take 1 tablet by mouth once daily. - amLODIPine (NORVASC) 10 mg tablet Take 1 tablet by mouth once daily. - albuterol HFA (PROAIR HFA) 90 mcg/actuation inhaler Inhale 2 Puffs as instructed every 4 hours as needed for wheezing/shortness of breath. - cholecalciferol, vitamin D3, (VITAMIN D3) 4,000 unit cap 1 po daily - coenzyme Q10 (COENZYME Q-10) 100 mg cap capsule Take 1 capsule by mouth once daily. Problem List As Of Date 12/09/2024 Noted Resolved Primary insomnia [F51.01] 05/11/2015 Weight gain [R63.5] 05/11/2015 Tobacco abuse disorder [Z72.0] 05/11/2015 Sebaceous cyst [L72.3] 05/25/2015 Vitamin D deficiency [E55.9] 04/21/2017 Mixed hyperlipidemia [E78.2] 2018 Encounter for screening for lung cancer [Z12.2] 04/08/2019 Pulmonary emphysema (HCC) [J43.9] 08/30/2019 Hypertension [I10] 08/15/2022 Encounter Status:Closed by Pamella MART [facility] ([id number]) 1960 F Date Time Provider Department 12/05/24 [facility] During [facility] visit today, we recorded the following information about you: Katlyn Harris RN 12/05/2024 11:01 AM Signed Nuzhat PT with [facility] calls to let provider know that patient was seen for PT visit today and during visit BP was elevated. BP 164/104 and upon recheck was the same. Asymptomatic. BP reading was prior to taking medication. Nuzhat reports that patient is in pain and over all tired from total shoulder reverse arthroplasty which could be contributing. Patient does not monitor bp at home. STAR Dash Jesse, APRN.CNP 12/06/2024 8:46 AM Signed [place]bella noted. Nigel Viveros APRN.CNP Allergies As of Date: 12/05/2024 (No Known Allergies) Date Reviewed: 08/15/2024 Reviewed by: Nancy Ramirez MA - Fully Assessed Reason for Visit: Patient Update [1234] Prescriptions as of 12/06/2024 - simvastatin (ZOCOR) 20 mg tablet Take 1 tablet by mouth daily at bedtime. - Zolpidem (AMBIEN CR) 12.5 mg CR tablet Take 1 tablet by mouth at bedtime as needed for up to 90 days. - hydroCHLOROthiazide 25 mg tablet Take 1 tablet by mouth once daily. - losartan (COZAAR) 100 mg tablet Take 1 tablet by mouth once daily. - amLODIPine (NORVASC) 10 mg tablet Take 1 tablet by mouth once daily. - albuterol HFA (PROAIR HFA) 90 mcg/actuation inhaler Inhale 2 Puffs as instructed every 4 hours as needed for wheezing/shortness of breath. - cholecalciferol, vitamin D3, (VITAMIN D3) 4,000 unit cap 1 po daily - coenzyme Q10 (COENZYME Q-10) 100 mg cap capsule Take 1 capsule by mouth once daily. Problem List As Of Date 12/05/2024 Noted Resolved Primary insomnia [F51.01] 05/11/2015 Weight gain [R63.5] 05/11/2015 Tobacco abuse disorder [Z72.0] 05/11/2015 Sebaceous cyst [L72.3] 05/25/2015 Vitamin D deficiency [E55.9] 04/21/2017 Mixed hyperlipidemia [E78.2] 2018 Encounter for screening for lung cancer [Z12.2] 04/08/2019 Pulmonary emphysema (HCC) [J43.9] 08/30/2019 Hypertension [I10] 08/15/2022 Encounter Status:Closed by NIGEL VIVEROS on 12/06/24 [facility] Anion gap in Serum or Plasma Ordered By: Man Flores on 11-22-2024 Anion gap [Moles/Vol] 13 mmol/L 5-15 [facility] Automated blood erythrocyte countOrdered By: Man Flores on 11-22-2024 RBC (Bld) [#/Vol] 3.88 10*6/uL Low 4.2-5.4 [facility] Comment on above: Performed By: #### L 100.0500, L500.2500 #### [facility] [address] [place], [address] Automated blood hematocrit ( percentage)Ordered By: Man Flores on 11-22-2024 Hematocrit (Bld) [Volume fraction] 36.5 % Low 37-47 [facility] Comment on above: Performed By: #### L 100.0500, L500.2500 #### [facility] [address] [place], [address] BUN/creatinine ratioOrdered By: Man Flores on 11-22-2024 Urea nitrogen/Creatinine [Mass ratio] 13.6 mg/mg - [facility] Basic Metabolic Profile (BMP )on 11-22-2024 BUN/CRE 13.6 RATIO Normal - [facility] Comment on above: Performed By: #### L 100.0500, L500.2500 #### [facility] [address] [place], [address] Calcium [Mass/Vol] 9.4 mg/dL Normal 7.6-11.0 [facility] Comment on above: Performed By: #### L 100.0500, L500.2500 #### [facility] [address] [place], [address] Chloride [Moles/Vol] 102 mmol/L Normal 98-108 [facility] Comment on above: Performed By: #### L 100.0500, L500.2500 #### [facility] [address] [place], [address] CO2 [Moles/Vol] 22.8 mmol/L Normal 21.0-32.0 [facility] Comment on above: Performed By: #### L 100.0500, L500.2500 #### [facility] [address] [place], [address] Creatinine [Mass/Vol] 0.60 mg/dL Low 0.70-1.20 [facility] Comment on above: Performed By: #### L 100.0500, L500.2500 #### [facility] [address] [place], [address] ECRCL 117.85 ml/min Normal 50-250 [facility] Comment on above: Performed By: #### L 100.0500, L500.2500 #### [facility] [address] [place], [address] GAP 13 Normal 5-15 [facility] Comment on above: Performed By: #### L 100.0500, L500.2500 #### [facility] [address] [place], [address] GFR/1.73 sq M.predicted among non-blacks MDRD (S/P/Bld) [Vol rate/Area] 101 mL/min/{1.73_m2} Normal >60 [facility] Comment on above: Result Comment: mL/m in/1.73m2 CKD-EPI Creatinine Equation (2020) Performed By: #### L 100.0500, L500.2500 #### [facility] [address] [place], [address] Glucose [Mass/Vol] 133 mg/dL High 70-99 [facility] Comment on above: Performed By: #### L 100.0500, L500.2500 #### [facility] [address] [place], [address] Potassium [Moles/Vol] 4.3 mmol/L Normal 3.3-5.1 [facility] Comment on above: Performed By: #### L 100.0500, L500.2500 #### [facility] [address] [place], [address] Sodium [Moles/Vol] 137 mmol/L Normal 133-145 [facility] Comment on above: Performed By: #### L 100.0500, L500.2500 #### [facility] [address] [place], [address] Urea nitrogen [Mass/Vol] 8 mg/dL Normal 4-19 [facility] Comment on above: Performed By: #### L 100.0500, L500.2500 #### [facility] [address] [place], [place], [address] CBC-Complete Blood Cnt No Di ffon 11-22-2024 RDW SD 45.5 fl High 35.1-43.9 [facility] Comment on above: Performed By: #### L 100.0500, L500.2500 #### [facility] [address] [place], [place], [address] Carbon dioxide, total [Moles /volume] in Central venous bloodOrdered By: Man Flores on 11-22-2024 CO2 [Moles/Vol] 22.8 mmol/L 21.0-32.0 [facility] Chloride assayOrdered By: Rimma Flores on 11-22-2024 Chloride [Moles/Vol] 102 mmol/L 98-108 [facility] Erythrocyte distribution wid th (RBC) [Ratio]Ordered By: Man Flores on 11-22-2024 Erythrocyte distribution width (RBC) [Entitic vol] 45.5 fL High 35.1-43.9 [facility] Erythrocyte distribution wid th ratioOrdered By: Man Flores on 11-22-2024 Erythrocyte distribution width (RBC) [Ratio] 13.2 % 11.6-14.6 [facility] Comment on above: Performed By: #### L 100.0500, L500.2500 #### [facility] [address] [place], [place], [address] Erythrocyte distribution wid th standard deviationOrdered By: Man Flores on 11-22-2024 Erythrocyte distribution width (RBC) [Ratio] 45.5 fl High 35.1-43.9 [facility] Estimation of creatinine danitza aranceOrdered By: Man Flores on 11-22-2024 Estimated Creatinine Clearance Calc 117.85 ml/min 50-250 [facility] GFR/1.73 sq M.predicted sia g non-blacks MDRD (S/P/Bld) [Vol rate/Area]Ordered By: Man Flores on 11-22-2024 Estimated GFR (MDRD) Non-Af Amer 101 >60 [facility] Comment on above: mL/min/1.73m2 CKD-EP I Creatinine Equation (2020) Glomerular filtration rate ( GFR) estimation/1.73 sq m using serum, plasma, or whole bOrdered By: Man Flores on 11-22-2024 GFR/1.73 sq M.predicted among non-blacks MDRD (S/P/Bld) [Vol rate/Area] 101 mL/min/{1.73_m2} >60 [facility] Comment on above: mL/min/1.73m2 CKD-EP I Creatinine Equation (2020) Hemoglobin measurementOrdere d By: Man Flores on 11-22-2024 Hemoglobin (Bld) [Mass/Vol] 12.3 g/dL 12.0-15.0 [facility] Comment on above: Performed By: #### L 100.0500, L500.2500 #### [facility] [address] [place], [address] MCV (mean corpuscular volume ) determinationOrdered By: Man Flores on 11-22-2024 MCV (RBC) [Entitic vol] 94.1 fL 81-99 [facility] Comment on above: Performed By: #### L 100.0500, L500.2500 #### [facility] [address] [place], [address] Mean corpuscular hemoglobin (MCH) determinationOrdered By: Man Flores on 11-22-2024 MCH (RBC) [Entitic mass] 31.7 pg 27.0-32.0 [facility] Comment on above: Performed By: #### L 100.0500, L500.2500 #### [facility] [address] [place], [address] Mean corpuscular hemoglobin concentration (MCHC) determinationOrdered By: Man Flores on 11-22-2024 MCHC (RBC) [Mass/Vol] 33.7 g/dL 32-36 [facility] Comment on above: Performed By: #### L 100.0500, L500.2500 #### [facility] [address] [place], [address] Mean platelet volume determi nationOrdered By: Man Flores on 11-22-2024 Platelet mean volume (Bld) [Entitic vol] 12.4 fL High 6.2-12.0 [facility] Comment on above: Performed By: #### L 100.0500, L500.2500 #### [facility] [address] [place], [address] Platelet countOrdered By: Rimma Flores on 11-22-2024 Platelets (Bld) [#/Vol] 283 10*3/uL 150-450 [facility] Comment on above: Performed By: #### L 100.0500, L500.2500 #### [facility] [address] [place], [address] Potassium (Unsp spec) [Mass/ Vol]Ordered By: Man Flores on 11-22-2024 Potassium [Moles/Vol] 4.3 mmol/L 3.3-5.1 [facility] Potassium measurement (mass/ volume)Ordered By: Man Flores on 11-22-2024 Potassium (Unsp spec) [Mass/Vol] 4.3 mmol/L 3.3-5.1 [facility] Serum creatinine measurement (mass/volume)Ordered By: Man Flores on 11-22-2024 Creatinine [Mass/Vol] 0.60 mg/dL Low 0.70-1.20 [facility] Serum glucose measurement (m ass/volume)Ordered By: Man Flores on 11-22-2024 Glucose [Mass/Vol] 133 mg/dL High 70-99 [facility] Serum or plasma calcium kenneth urement (mass/volume)Ordered By: Man Flores on 11-22-2024 Calcium [Mass/Vol] 9.4 mg/dL 7.6-11.0 [facility] Serum or plasma urea nitroge n measurement (mass/volume)Ordered By: Man Flores on 11-22-2024 Urea nitrogen [Mass/Vol] 8 mg/dL 4-19 [facility] Sodium levelOrdered By: Scott Flores on 11-22-2024 Sodium [Moles/Vol] 137 mmol/L 133-145 [facility] White blood cell (WBC) count Ordered By: Man Flores on 11-22-2024 WBC (Bld) [#/Vol] 15.4 10*3/uL High 4.4-11.0 [facility] Comment on above: Performed By: #### L 100.0500, L500.2500 #### [facility] [address] [place], [place], [address] Bedside Glucoseon 11-21-2024 FINGERSTICK GLU 106 mg/dL Normal 74-106 [facility] Comment on above: Result Comment: MAGNOLIA SHAH OF PATIENT CARE PER NURSING PROTOCOL Performed By: #### L 501.080 #### [facility] [address] [place], [place], [address] Decalcification bone/plaqueo n 11-21-2024 Decalcification bone/plaque Patient Age/Sex Location Account Attending Physician ADRIANNA BARNEY 64/F MS3 [id number] Dr. Man Flores, DO Specimen: [id number] Received: 11/22/24 Status: VLAD Joseph Num: [id number] Spec Type: HUMERUS Subm Dr: Dr. Man Flores, [facility] OPERATION: Total shoulder replacement, reverse PRE-OP DIAGNOSIS: Right proximal humerus fracture TISSUE SUBMITTED: A- Right humeral head MICROSCOPIC DIAGNOSIS A. Right shoulder, fracture, total arthroplasty: * Articular bone with mild reactive/degenerative changes. * Fatty marrow with focal necrosis and fibrosis. * No evidence of neoplasia. MICROSCOPIC DESCRIPTION Slides are reviewed. GROSS DESCRIPTION A. Received in formalin in a container labeled with the patient's name, date of , and right humeral head are multiple irregular and firm fragments of bone measuring 5.0 x 5.0 x 3.0 cm in aggregate. The margins are shaggy and firm. The cortical surfaces are osborne and smooth. Sectioning reveals firm and osborne surfaces. Talent Acquisition Consultant sections submitted in A1 following decalcification. [facility] 11-22-2024 CPT:05877,37753 Patient Age/Sex Location Account Attending Physician ADRIANNA BARNEY 64/F MS3 [id number] Dr. Man Flores, DO Signed (signature on file) Dr. Eleonora Garcia MD 12/13/24 0914 Normal [facility] Comment on above: Performed By: #### P DEC #### [facility] [address] [place] [address]. [place], [place], [id number] Glucose measurement at [facility] deOrdered By: Man Flores on 11-21-2024 Bedside Glucose ([facility] Panel) 106 mg/dL 74-106 [facility] Comment on above: MANAGEMENT OF PATIEN T CARE PER NURSING PROTOCOL Glucose [Mass/Vol] 106 mg/dL 74-106 [facility] Comment on above: MANAGEMENT OF PATIEN T CARE PER NURSING PROTOCOL MR/POSTOP.ANEon 11-21-2024 MR/POSTOP.ANE [facility] Medical Records Department [address] [place] [address] Anesthesia Postop Eval I 11/21/24 1532 MR#: [id number] Acct: [id number] Name: ADRIANNA BARNEY Rep #: [id number] : 1960 64 From: Matthew Fish CRNA PCP: Dr. Deepak Rivers MD Status:REG SDC Y Race: C Location: [place] [address] Anesthesia: Postop Eval I Current Vital Signs Temperature: 97 F Pulse Rate: 90 Blood Pressure: 140/97 Respiratory Rate: 15 Pulse Ox: 98 Oxygen Delivery Method: Room Air Assessment Airway patent: Yes Spontaneous unlabored respirations: Yes Mental status: Awake and Calm nausea: No Vomiting: No Anesthesia Complication: No Fluid Hydration Crystalloid volume administer (ml): 1,500 Total IV fluid infused: 1,500 Progress Note Anesthesia document: Postop Eval 1 completed: Yes 11/21/24 1533 Date Matthew Fish SLIP FILLER Cosigner Signature: Date CC: Signed Normal [facility] [id number] 11-21-2024 [facility] Medical Records Department [address] [place] [address] Anesthesia Postop Eval II 11/21/24 1639 MR#: [id number] Acct: [id number] Name: ADRIANNA ABRNEY Rep #: [id number] : 1960 64 From: Shyam Sanchez MD PCP: Dr. Deepak Rivers MD Status:ADM IRINEO Y Race: C Location: Anesthesia Postop Eval I Sum Postop Eval Completion status Anesthesia document: Postop Eval 1 completed: Yes Anesthesia Postop Eval I Summary Anesthesia Postop Eval I Summary: Anesthesia Postop Eval I: Assessment Summary Airway patent Yes 11/21/24 15:33 [email or web address] [email or web address] Spontaneous unlabored Yes 11/21/24 15:33 [email or web address] [email or web address] respirations Mental status Awake,Calm 11/21/24 15:33 [email or web address] [email or web address] nausea No 11/21/24 15:33 [email or web address] [email or web address] Vomiting No 11/21/24 15:33 [email or web address] [email or web address] Anesthesia Postop Eval I: Fluid Summary Crystalloid volume administer 1,500 11/21/24 15:33 [email or web address] (ml) Colloids volume administered ( ml) Blood Product volume administered (ml) Total IV fluid infused 1,500 11/21/24 15:33 [email or web address] Anesthesia Postop Eval I: Summary Notes Anesthesia Complication No 11/21/24 15:33 [email or web address] Anesthesia Complication Comment: Post-operative progress note Anesthesia: Postop Eval II Evaluation Mental status: Awake Pain Level: 0 nausea: No Vomiting: No 11/21/24 1639 Date Shyam Sanchez MD Cosigner Signature: Date CC: Signed Normal [facility] Operative Reporton 5 Operative Report [facility] Medical Records Department [address] [place] [address] Operative Report 11/21/24 1549 MR#: [id number] Acct: [id number] Name: ADRIANNA BARNEY Rep #: [id number] : 1960 64 From: Man Flores DO PCP: Dr. Deepak Rivers MD Status:[facility] Location: [place] [address] Operative Report (Standard) Operative Information Date of Procedure: 11/21/24 Pre-Operative Diagnosis: Right proximal humerus four-part fracture Post-Operative Diagnosis: Right proximal humerus four-part fracture Surgery/Procedure Performed: Right reverse total shoulder arthroplasty medical assistant instructor: Yes Florist'S Decorator: Padma Grace Tasks completed by first assistant manager: Opening closing, Dissecting tissue, Implanting device, Hemostasis: Electrocautery and Retracting Additional welder assistant?: No Type of Anesthesia: General/Regional RN Documented Start/Stop Times: Operation Date: 11/21/24 12:35 Case Time Into Pre-Op 11/21/24 10:23 Anesthesia Start 11/21/24 13:00 Into Room 11/21/24 13:00 Procedure Start 11/21/24 13:32 Procedure End 11/21/24 15:05 Anesthesia End 11/21/24 15:23 Out of Room 11/21/24 15:23 Into Recovery 11/21/24 15:27 Procedure Start Time: 13:32 Procedure Stop Time: 15:05 Select all DRAINS/GRAFTS/IMPLANTS that apply: Implanted device Implanted device details: Tornier perform fracture stem size 12, +0 mm retentive polyethylene, Tornier Aequalis PerFORM+ reversed baseplate 25 mm full wedge augmented, standard glenosphere cobalt chrome 39 mm diameter Estimated Blood Loss: 50 cc Specimen collected: Yes Description of specimen(s) removed: Right humeral head Description of surgery: Patient arrived to [facility] morning of the procedure and was greeted by the same day surgery staff. Prior to her procedure, I greeted the patient in the preoperative holding area I identified the patient by name, record number, and date of . Informed consent was confirmed. The operative extremity was marked. All questions were answered to patient satisfaction. Patient was also seen by anesthesia staff. Interscalene block was administered prior to procedure for postoperative analgesia. At time of her procedure, patient was brought to the operative suite and positioned supine on a standard table with a beachchair attachment. General anesthesia was induced after all bony prominences were well-padded. Endotracheal tube was placed. After adequate anesthesia and securing the tube, we prepared the patient to be positioned in the beachchair position. A well-padded cathead worker was applied. The nonoperative extremity was placed in a well arm bacon. She was then brought into the beachchair position after we confirmed an appropriate blood pressure. We then spun the bed 45 degrees. The operative extremity was then prepared. In the butterfly wing of the bed was removed and a well-padded torso strap was applied to secure the patient to the bed. The operative extremity was now free. We then prepped and draped the right upper extremity in normal, sterile orthopedic fashion. We then performed a timeout with all parties in attendance in agreement with the side, site, and operation be performed. 2 g Ancef was administered prior to incision by anesthesia staff, as well as 1 g TXA IV. No concerns were voiced and we elected to proceed. I first marked a standard deltopectoral incision just lateral to the coracoid process in line with the long axis of the humerus. Skin was sharply incised with 10 blade scalpel. I then dissected bluntly through the subcutaneous layers and found the fat stripe between the deltoid and pectoralis major. The cephalic vein was then identified and protected. It was retracted laterally with the deltoid. I then bluntly dissected underneath the deltoid with a Kilpatrick elevator. This quickly identified the fracture site. The upper 1 cm of the pectoralis major was released. I then identified the long head of the biceps tendon in the intertubercular groove. This was tenodesed in situ with #2 FiberWire. I then amputated the biceps proximal to the tenodesis site and followed the tendon to the supraglenoid tubercle where it was amputated. This identified the lesser and greater tuberosities. I tagged the supraspinatus and subscapularis respectively with #2 suture tape for later repair along with their attached tuberosities. I then placed retractors around the posterior and anterior glenoid to expose the glenoid. Glenoid labrum was removed with Bovie cautery protecting the axillary nerve, which was in close proximity to the glenoid neck. We then used the full wedge augment guide from Ripnier to position our centering pin. Guide was removed and pin was analyzed and compared to preoperative planning. It appeared to be in appropriate position. This was reamed about 2 mm deep. We then remove the reamer and used the (more content not included)... Normal [facility] Shoulder One Viewon 11-22-19 25 Shoulder One View [facility] Imaging Services [address] [place] [address] Shoulder One View MR#: [id number] Acct: [id number] Name: ADRIANNA BARNEY Rep #: [id number] : 1960 F 64 From: Jorge Adams i, MD PCP: Dr. Deepak Rivers MD Status: ADM IRINEO Study: Shoulder One View Date of Exam: 11/21/24 Exam# [id number] Ordering Dr: Man Flores DO PROCEDURE: SHOULDER ONE VIEW 11/21/2024 REASON FOR EXAM: REVERSE TOTAL SHOULDER TECHNIQUE: 2 intraoperative fluoroscopic images from right shoulder replacement. COMPARISON: Right shoulder x-ray dated 11/03/2024. FINDINGS: Intraoperative images demonstrate right shoulder arthroplasty hardware, new since prior examination. Anatomic alignment. The humeral component is not viewed in its entirety on the images. RAD/Shoulder One View IMPRESSION: Status post right shoulder arthroplasty. Anatomic alignment. Reading Location: [facility] CC: Dr. Deepak Rivers MD; Dr. Man Flores DO Orange Picking Supervisor: Signed Normal [facility] Shoulder min 2 Viewson 11-21 Shoulder min 2 Views [facility] Imaging Services [address] [place] [id number] Shoulder min 2 Views MR#: [id number] Acct: [id number] Name: ADRIANNA BARNEY Rep #: [id number] : 1960 F 64 From: Kori Titus nd, MD PCP: Dr. Deepak Rivers MD Status: ADM IRINEO Study: Shoulder min 2 Views Date of Exam: 11/21/24 Exam# [id number] Ordering Dr: Man Flores DO PROCEDURE: SHOULDER MIN 2 VIEWS 11/21/2024 REASON FOR EXAM: POST OP TECHNIQUE: 2 view(s) of the right shoulder COMPARISON: Intraoperative radiographs earlier same day. FINDINGS: Bones: Reverse shoulder arthroplasty in grossly anatomical alignment. Joints: Normal alignment. Mild degenerative changes of the acromioclavicular joint space. Soft tissues: Mild soft tissue swelling. Other: The visualized right lung is unremarkable. RAD/Shoulder min 2 Views IMPRESSION: Postoperative right reverse shoulder arthroplasty. Reading Location: [facility] CC: Dr. Deepak Rivers MD; Dr. Man Flores DO Orange Picking Supervisor: Signed Normal [facility] MRSA/SAID NASAL SCREENon MRSA+SAID SCRN Reason for Exam: PRE OP MRSA MRSA Negative S. AUREUS S. aureus Negative Normal [facility] Comment on above: Performed By: #### M 100.651 ####[facility] [id number] [facility] [place], [address] MRSA screenOrdered By: Frankie Flores on 11-15-2024 MRSA DNA MONIE+probe Ql (Unsp spec) [facility] Nasal Screen MRSA/MSSA [facility] [facility] Magnesiumon 11-15-2024 Magnesium [Mass/Vol] 1.7 mg/dL Normal 1.5-2.2 [facility] Comment on above: Performed By: #### L [id number] #### [facility] [address] [place], [address] Magnesium (Unsp spec) [Mass/ Vol]Ordered By: Shyam Sanchez on 11-15-2024 Magnesium [Mass/Vol] 1.7 mg/dL 1.5-2.2 [facility] Magnesium measurement (mass/ volume)Ordered By: Shyam Sanchez on 11-15-2024 Magnesium (Unsp spec) [Mass/Vol] 1.7 mg/dL 1.5-2.2 [facility] 12 Lead EKGon 11-04-2024 12 Lead EKG [facility] Cardiovascular Services [address] [place] [address] 12 Lead EKG 11/04/24 0852 MR#: [id number] Acct: [id number] Name: ADRIANNA BARNEY Rep #: [id number] : 1960 64 From: Maurice Cutler MD Attending Dr: RAISSA Mendiola Status: REG CL I Ordering Dr: Lyly Teixeira Date: 11/04/24 Location: N Sex: F C Admitted: Test Reason : PRE OP Blood Pressure : */* mmHG Vent. Rate : 72 BPM Atrial Rate : 72 BPM P-R Int : 124 ms QRS Dur : 86 ms QT Int : 398 ms P-R-T Axes : 44 -6 67 degrees QTcB Int : 435 ms Normal sinus rhythm Normal ECG Confirmed by MAURICE CUTLER MD ([id number]), multimedia editor SHERRY GRAYSON ([id number]) on 11/04/2024 12:45:44 PM Referred By: Lyly Teixeira Confirmed By: MAURICE CUTLER MD 11/04/24 1245 Date Maurice Cutler MD CC: RAISSA Mendiola; Dr. Deepak Rivers MD Signed Normal [facility] Electrocardiogram reportOrde red By: Maurice Cutler on 11-04-2024 EKG study [facility] Cardiovascular Services [address] [place] [address] 12 Lead EKG 11/04/24 0852 MR#: [id number] Acct: [id number] Name: ADRIANNA BARNEY Rep #:[id number] : 1960 64 From: Maurice Cutler MD Attending Dr: RAISSA Mendiola St atus: REG CLI Ordering Dr: Lyly Teixeira Date: 11/04/24 Location: [facility] Sex: F C Admitted: Test Reason : PRE OP Blood Pressure : */* mmHG Vent. Rate : 72 BPM Atrial Rate : 72 BPM P-R Int : 124 ms QRS Dur : 86 ms QT Int : 398 ms P-R-T Axes : 44 -6 67 degrees QTcB Int : 435 ms Normal sinus rhythm Normal ECG Confirmed by MAURICE CUTLER MD ([id number]), multimedia editor SHERRY GRAYSON ([id number]) on 512:45:44 PM Referred By: Lyly Teixeira Confirmed By: MAURICE CUTLER MD 11/04/24 1249 Date _ Maurice Cutler MD CC: RAISAS Mendiola; Dr. Deepak Rivers MD ~ Signed [facility] Work Phone: [phone] Absolute lymphocyte countOrd ered By: Lyly Teixeira on 11-03-2024 Lymphocytes Auto (Unsp spec) [#/Vol] 1.75 10*3/uL 0.83-4.51 [facility] Absolute neutrophil countOrd ered By: Lyly Teixeira on 11-03-2024 Neutrophils (Bld) [#/Vol] 9.9 10*3/uL High 2.0-7.7 [facility] Anion gap in Serum or Plasma Ordered By: Lyly Teixeira on 11-03-2024 Anion gap [Moles/Vol] 13 mmol/L 5- [facility] Automated lymphocyte count a s percentage of total leukocytesOrdered By: Lyly Teixeira on 11-03-2024 Lymphocytes/100 WBC Auto (Unsp spec) 13.8 % Low 19-41 [facility] BUN/creatinine ratioOrdered By: Lyly Teixeira on 11-03-2024 Urea nitrogen/Creatinine [Mass ratio] 17.1 mg/mg 06-05 [facility] Basic Metabolic Profile (BMP )on 11-03-2024 BUN/CRE 17.1 RATIO Normal 06-05 [facility] Comment on above: Performed By: #### L 100.0100, L500.2500 #### [facility] [address] [place], [address] Calcium [Mass/Vol] 9.4 mg/dL Normal 7.6-11.0 [facility] Comment on above: Performed By: #### L 100.0100, L500.2500 #### [facility] [address] [place], [address] Chloride [Moles/Vol] 95 mmol/L Low 98-108 [facility] Comment on above: Performed By: #### L 100.0100, L500.2500 #### [facility] [address] [place], [address] CO2 [Moles/Vol] 24.8 mmol/L Normal 21.0-32.0 [facility] Comment on above: Performed By: #### L 100.0100, L500.2500 #### [facility] [address] [place], [address] Creatinine [Mass/Vol] 0.84 mg/dL Normal 0.70-1.20 [facility] Comment on above: Performed By: #### L 100.0100, L500.2500 #### [facility] [address] [place], [address] GAP 13 Normal 5-15 [facility] Comment on above: Performed By: #### L 100.0100, L500.2500 #### [facility] [address] [place], [address] GFR/1.73 sq M.predicted among non-blacks MDRD (S/P/Bld) [Vol rate/Area] 78 mL/min/{1.73_m2} Normal >60 [facility] Comment on above: Result Comment: mL/m in/1.73m2 CKD-EPI Creatinine Equation (2020) Performed By: #### L 100.0100, L500.2500 #### [facility] [address] [place], [address] Glucose [Mass/Vol] 112 mg/dL High 70-99 [facility] Comment on above: Performed By: #### L 100.0100, L500.2500 #### [facility] [address] [place], [address] Potassium [Moles/Vol] 3.5 mmol/L Normal 3.3-5.1 [facility] Comment on above: Performed By: #### L 100.0100, L500.2500 #### [facility] [address] [place], [address] Sodium [Moles/Vol] 133 mmol/L Normal 133-145 [facility] Comment on above: Performed By: #### L 100.0100, L500.2500 #### [facility] [address] [place], [address] Urea nitrogen [Mass/Vol] 14 mg/dL Normal 4-19 [facility] Comment on above: Performed By: #### L 100.0100, L500.2500 #### [facility] [address] [place], [address] Basophil percentageOrdered B y: Lyly Teixeira on 11-03-2024 Basophils/100 WBC (Bld) 0.3 % 0-1 [facility] CBC W/Diff, Automatedon 10-16 Absolute Lymph 1.75 X10 3/uL Normal 0.83-4.51 [facility] Comment on above: Performed By: #### L 100.0100, L500.2500 #### [facility] [address] [place], [address] Absolute Neut 9.9 X10 3/uL High 2.0-7.7 [facility] Comment on above: Performed By: #### L 100.0100, L500.2500 #### [facility] [address] [place], [address] Basophils/100 WBC (Bld) 0.3 % Normal 0-1 [facility] Comment on above: Performed By: #### L 100.0100, L500.2500 #### [facility] [address] [place], [address] Eosinophils/100 WBC (Bld) 0.3 % Normal 0-5 [facility] Comment on above: Performed By: #### L 100.0100, L500.2500 #### [facility] [address] [place], [address] Erythrocyte distribution width (RBC) [Ratio] 14.5 % Normal 11.6-14.6 [facility] Comment on above: Performed By: #### L 100.0100, L500.2500 #### [facility] [address] [place], [address] Hematocrit (Bld) [Volume fraction] 42.2 % Normal 37-47 [facility] Comment on above: Performed By: #### L 100.0100, L500.2500 #### [facility] [address] [place], [address] Hemoglobin (Bld) [Mass/Vol] 14.2 g/dL Normal 12.0-15.0 [facility] Comment on above: Performed By: #### L 100.0100, L500.2500 #### [facility] [address] [place], [address] IG% 0.500 Normal 0.0-0.9 [facility] Comment on above: Result Comment: IG% - Immature Granulocytes (promyelocytes, myelocytes and metamyelocytes) > 1% indicates that a LEFT SHIFT is Present. Performed By: #### L 100.0100, L500.2500 #### [facility] [address] [place], [address] Lymphocytes/100 WBC (Bld) 13.8 % Low 19-41 [facility] Comment on above: Performed By: #### L 100.0100, L500.2500 #### [facility] [address] [place], [address] MCH (RBC) [Entitic mass] 31.6 pg Normal 27.0-32.0 [facility] Comment on above: Performed By: #### L 100.0100, L500.2500 #### [facility] [address] [place], [address] MCHC (RBC) [Mass/Vol] 33.6 g/dL Normal 32-36 [facility] Comment on above: Performed By: #### L 100.0100, L500.2500 #### [facility] [address] [place], [address] MCV (RBC) [Entitic vol] 94.0 fL Normal 81-99 [facility] Comment on above: Performed By: #### L 100.0100, L500.2500 #### [facility] [address] [place], [address] Monocytes/100 WBC (Bld) 6.8 % Normal 0-10 [facility] Comment on above: Performed By: #### L 100.0100, L500.2500 #### [facility] [address] [place], [address] Neutrophils/100 WBC (Bld) 78.3 % High 47-70 [facility] Comment on above: Performed By: #### L 100.0100, L500.2500 #### [facility] [address] [place], [address] Nucleated RBC (Bld) [#/Vol] 0 10*3/uL Normal 0-5 [facility] Comment on above: Performed By: #### L 100.0100, L500.2500 #### [facility] [address] [place], [address] Platelet mean volume (Bld) [Entitic vol] 11.9 fL Normal 6.2-12.0 [facility] Comment on above: Performed By: #### L 100.0100, L500.2500 #### [facility] [address] [place], [address] Platelets (Bld) [#/Vol] 227 10*3/uL Normal 150-450 [facility] Comment on above: Performed By: #### L 100.0100, L500.2500 #### [facility] [address] [place], [address] RBC (Bld) [#/Vol] 4.49 10*6/uL Normal 4.2-5.4 [facility] Comment on above: Performed By: #### L 100.0100, L500.2500 #### [facility] [address] [place], [address] RDW SD 49.7 fl High 35.1-43.9 [facility] Comment on above: Performed By: #### L 100.0100, L500.2500 #### [facility] [address] [place], [address] WBC (Bld) [#/Vol] 12.7 10*3/uL High 4.4-11.0 [facility] Comment on above: Performed By: #### L 100.0100, L500.2500 #### [facility] [address] [place], [address] Carbon dioxide, total [Moles /volume] in Central venous bloodOrdered By: Lyly Teixeira on 11-03-2024 CO2 [Moles/Vol] 24.8 mmol/L 21.0-32.0 [facility] Chloride assayOrdered By: Ashlyn Teixeira on 11-03-2024 Chloride [Moles/Vol] 95 mmol/L Low 98-108 [facility] Emergency Department Summary on 11-03-2024 Emergency Department Summary [facility] Medical Records Department [address] [place] [address] Emergency Department Summary 11/03/24 MR#: [id number] Acct: [id number] Name: ADRIANNA BARNEY Rep #: [id number] : 1960 64 From: Luis Geiger DO PCP: Dr. Deepak Rivers MD Status:REG ER Location: ED HPI History of Present Illness Chief Complaint: Upper Extremity Injury Informant: patient and spouse/S.O. Narrative Narrative: Patient is a 64-year-old female who reports a past medical history of hypertension and hyperlipidemia. She reports she is right-hand dominant. She states around 3 in the morning she fell out of bed and landed on her right side. She denies any LOC and states she does not have a history of bleeding disorder nor does she take blood thinners. She states she noticed pain in her right upper arm/shoulder but tried to go back to bed. She states over the next 3 hours any type of motion causes severe pain and she noticed increased swelling to the arm and therefore with concern for fracture she presents for evaluation [facility] Medical History no medical history no medical history Home Medications ???Medication ???Instructions ???Recorded ???Last Taken ???Type ondansetron 4 mg disintegrating 4 mg PO TID PRN nausea and 5 Unknown Rx tablet vomiting #21 tabs oxycodone 5 mg tablet 5 mg PO Q6H PRN pain 5 days #20 Unknown Rx tabs Allergy/AdvReac Type Severity Reaction Status Date / Time Unable to Assess Allergy Verified 11/03/24 06:04 Social History Smoking Status: Current every day smoker tobacco type: cigarettes ROS ROS ED Constitutional Constitutional ED: Denies chills or fever(s) Eyes Eyes: Denies blurry vision, change in vision or diplopia ENT ENT ED: Denies sore throat Cardiovascular Cardiovascular: Denies chest pain Respiratory/Chest Respiratory/Chest: Denies cough or dyspnea Gastrointestinal Gastrointestinal: Denies abdominal pain, diarrhea, nausea or vomiting Genitourinary Genitourinary ED: Denies dysuria Musculoskeletal Musculoskeletal: Reports other Details: Positive right shoulder/upper arm pain ; Denies back pain or neck pain Integumentary Reports other Details: Positive bruising right upper arm Neurologic Neurologic: Denies headache(s) or paresthesias Hematologic/Lymphatic Hematologic/Lymphatic: Denies easy bleeding or easy bruising EXAM Physical Exam Const Vital Signs: 11/03/24 06:00 Temperature 97.4 F L Temperature Source Oral Pulse Rate 84 Respiratory Rate 22 H Blood Pressure 158/86 H Blood Pressure Mean 110 Pulse Ox 98 Positive well nourished, well developed and obese General Appearance ED: well developed Nutritional Appearance: obese HEENT HEENT Narrative: Normocephalic atraumatic Eyes PERRL and EOMs intact bilaterally Neck full ROM and supple Neck Narrative: No bony deformity or step-off of the cervical spine no midline tenderness to palpation Resp normal respiratory effort and clear to auscultation bilaterally Cardio regular rate and regular rhythm Back/Spine Back/Spine Narrative: No bony deformity or step-off of the thoracic or lumbar spine no midline tenderness to palpation Extremity Extremity Narrative: Right upper extremity is neurovascularly intact; AIN/PIN are intact and normal Patient has ecchymosis and soft tissue swelling of the right upper arm/humerus compared to left concerning for fracture. Compartments are soft and compressible however going against compartment syndrome. No sulcus sign noted. Active range of motion as well as passive range of motion is severely limited secondary to pain Pelvis is stable there is no shortening or external rotation of either lower extremity Remainder of the exam is normal Neuro oriented x3 and CN's II-XII intact bilaterally Sensorium / Orientation: alert Psych mental status grossly normal Skin Skin Narrative: Soft tissue swelling ecchymosis of the right upper arm/humerus as documented above Capillary refill is less than 3 seconds MDM MDM MDM Narrative Medical decision making narrative: Patient presented to the ER hypertensive as a past medical history of this. She reported a mechanical fall from her bed she is not on a blood thinner nor does she have signs of head trauma so my concern for a skull fracture versus traumatic subarachnoid or subdural hemorrhage is low and I feel no need for head CT. The patient has soft tissue swelling ecchymosis of the right upper arm but compartments are soft and compressible going against compartment syndrome. As history and exam is most concerning with a proximal humerus fracture/shoulder fracture x-rays were obtained. This confirmed a comminuted humeral head/neck fracture. The case was discussed and reviewed by orthopedic david (more content not included)... Normal [facility] Eosinophil percentageOrdered By: Lylychance Teixeira on 11-03-2024 Eosinophils/100 WBC (Bld) 0.3 % 0-5 [facility] Erythrocyte distribution wid th ratioOrdered By: Lylymarleny Teixeira on 11-03-2024 Erythrocyte distribution width (RBC) [Ratio] 14.5 % 11.6-14.6 [facility] Erythrocyte distribution wid th standard deviationOrdered By: Lylymarleny Teixeira on 11-03-2024 Erythrocyte distribution width (RBC) [Entitic vol] 49.7 fL High 35.1-43.9 [facility] Erythrocyte distribution width (RBC) [Ratio] 49.7 fl High 35.1-43.9 [facility] Extremity Upper without Cont raon 11-03-2024 Extremity Upper without Contra [facility] Imaging Services [address] [place] [address] [place], [place] [id number] Extremity Upper without Contra MR#: [id number] Acct: [id number] Name: ADRIANNA BARNEY Rep #: [id number] : 1960 F 64 From: Nixon Hernandez i, DO PCP: Dr. Deepak Rivers MD Status: REG CLI Study: Extremity Upper without Contra Date of Exam: 0 11/03/24 Exam# [id number] Ordering Dr: Lyly Teixeira PROCEDURE: Noncontrast CT of the right shoulder. 11/03/2024 REASON FOR EXAM: Proximal right humerus fracture TECHNIQUE: Contiguous unenhanced axial CT images were obtained through the right shoulder. Sagittal and coronal reformats were created. One or more dose reduction techniques were used (e.g., Automated exposure control, adjustment of the mA and/or kV according to patient size, use of iterative reconstruction technique). RADIATION DOSE SUMMARY: DLP: 807.95 mGycm COMPARISON: Right shoulder radiographs from the same day FINDINGS: Included portions of the spine, sternum, right scapula, and right clavicle are intact. The included right ribs are intact. The included portions of the trachea and right lung are clear. The included right breast is unremarkable. There is a displaced extensively comminuted fracture involving the right humeral head/neck junction. Fracture extends into the right humeral head which demonstrates a comminuted appearance. The bulk of the right humeral head is displaced inferiorly relative to the glenoid, without significant anterior/posterior dislocation. There is edema involving the soft tissues and musculature of the proximal right humerus as well as the rotator cuff. No bony Bankart lesion is demonstrated. Small right glenohumeral joint effusion. No AC joint separation. CT/Extremity Upper without Contra IMPRESSION: Displaced comminuted fracture involving the proximal right humerus, extending into the right humeral head. The bulk of the right humeral head is displaced inferiorly relative to the glenoid. Small glenohumeral joint effusion and moderate edema involving the nearby musculature and soft tissues/subcutaneous fat of the upper right arm. Reading [facility] CC: RAISSA Mendiola; Dr. Deepak Rivers MD [employer] Supervisor: Signed Normal [facility] GFR/1.73 sq M.predicted sia g non-blacks MDRD (S/P/Bld) [Vol rate/Area]Ordered By: Lyly Teixeira on 11-03-2024 Estimated GFR (MDRD) Non-Af Amer 78 >60 [facility] Comment on above: mL/min/1.73m2 CKD-EP I Creatinine Equation (2020) Glomerular filtration rate ( GFR) estimation/1.73 sq m using serum, plasma, or whole bOrdered By: Lyly Teixeira on 11-03-2024 GFR/1.73 sq M.predicted among non-blacks MDRD (S/P/Bld) [Vol rate/Area] 78 mL/min/{1.73_m2} >60 [facility] Comment on above: mL/min/1.73m2 CKD-EP I Creatinine Equation (2020) Hematocrit Auto (Bld) [Volum e fraction]Ordered By: Lyly Teixeira on 11-03-2024 Hematocrit (Bld) [Volume fraction] 42.2 % 37-47 [facility] Hemoglobin measurementOrdere d By: Lyly Teixeira on 11-03-2024 Hemoglobin (Bld) [Mass/Vol] 14.2 g/dL 12.0-15.0 [facility] Humerus min 2 Viewson 2024 Humerus min 2 Views [facility] Imaging Services [address] [place] [address] Humerus min 2 Views MR#: [id number] Acct: [id number] Name: ADRIANNA BARNEY Rep #: [id number] : 1960 F 64 From: Nixon Hernandez i, DO PCP: Dr. Deepak Rivers MD Status: REG ER Study: Humerus min 2 Views Date of Exam: 11/03/24 Exam# [id number] Ordering Dr: Luis Geiger DO PROCEDURE: Right humerus radiographs, three views 11/03/2024 REASON FOR EXAM: PAIN fall TECHNIQUE: Three views of the right humerus were obtained. COMPARISON: None. FINDINGS: 3 views of the right humerus were obtained. The mid to distal right humerus and included proximal radius/ulna are intact. There is a displaced comminuted fracture involving the right humeral head/neck junction, which extends into the substance of the humeral head. A large portion of the humeral head is displaced inferiorly relative to the glenoid. RAD/Humerus min 2 Views IMPRESSION: Comminuted displaced fracture of the proximal right humerus/humeral head. Reading [facility] CC: Dr. Deepak Rivers MD; Luis Geiger DO [employer] Supervisor: Signed Normal [facility] Immature granulocytes/100 WB C Auto (Bld)Ordered By: Lyly Teixeira on 11-03-2024 Immature granulocytes/100 WBC (Bld) 0.500 % 0.0-0.9 [facility] Comment on above: IG% - Immature Granu locytes (promyelocytes, myelocytes and metamyelocytes) > 1% indicates that a LEFT SHIFT is Present. Lymphocytes Auto (Unsp spec) [#/Vol]Ordered By: Lyly Teixeira on 11-03-2024 Lymphocytes (Bld) [#/Vol] 1.75 10*3/uL 0.83-4.51 [facility] Lymphocytes/100 WBC Auto (Un sp spec)Ordered By: Lyly Teixeira on 11-03-2024 Lymphocytes/100 WBC (Bld) 13.8 % Low 19-41 [facility] MCV (mean corpuscular volume ) determinationOrdered By: Lyly Teixeira on 11-03-2024 MCV (RBC) [Entitic vol] 94.0 fL 81-99 [facility] Mean corpuscular hemoglobin (MCH) determinationOrdered By: Lyly Teixeira on 11-03-2024 MCH (RBC) [Entitic mass] 31.6 pg 27.0-32.0 [facility] Mean corpuscular hemoglobin concentration (MCHC) determinationOrdered By: yLly Teixeira on 11-03-2024 MCHC (RBC) [Mass/Vol] 33.6 g/dL 32-36 [facility] Mean platelet volume determi nationOrdered By: Lyly Teixeira on 11-03-2024 Platelet mean volume (Bld) [Entitic vol] 11.9 fL 6.2-12.0 [facility] Monocyte percentageOrdered B y: Lyly Teixeira on 11-03-2024 Monocytes/100 WBC (Bld) 6.8 % 0-10 [facility] Neutrophil percentageOrdered By: Lyly Teixeira on 11-03-2024 Neutrophils/100 WBC (Bld) 78.3 % High 47-70 [facility] Nucleated red blood cell per centageOrdered By: Lyly Teixeira on 11-03-2024 Nucleated RBC/100 WBC (Bld) [Ratio] 0 % 0-5 [facility] Platelet countOrdered By: Ashlyn Teixeira on 11-03-2024 Platelets (Bld) [#/Vol] 227 10*3/uL 150-450 [facility] Potassium (Unsp spec) [Mass/ Vol]Ordered By: Lyly Teixeira on 11-03-2024 Potassium [Moles/Vol] 3.5 mmol/L 3.3-5.1 [facility] Potassium measurement (mass/ volume)Ordered By: Lyly Teixeira on 11-03-2024 Potassium (Unsp spec) [Mass/Vol] 3.5 mmol/L 3.3-5.1 [facility] RBC Auto (Bld) [#/Vol]Ordere d By: Lyly Teixeira on 11-03-2024 RBC (Bld) [#/Vol] 4.49 10*6/uL 4.2-5.4 [facility] Serum creatinine measurement (mass/volume)Ordered By: Lyly Teixeira on 11-03-2024 Creatinine [Mass/Vol] 0.84 mg/dL 0.70-1.20 [facility] Serum glucose measurement (m ass/volume)Ordered By: Lyly Teixeira on 11-03-2024 Glucose [Mass/Vol] 112 mg/dL High 70-99 [facility] Serum or plasma calcium kenneth urement (mass/volume)Ordered By: Lyly Teixeira on 11-03-2024 Calcium [Mass/Vol] 9.4 mg/dL 7.6-11.0 [facility] Serum or plasma urea nitroge n measurement (mass/volume)Ordered By: Lyly Teixeira on 11-03-2024 Urea nitrogen [Mass/Vol] 14 mg/dL 4-19 [facility] Shoulder min 2 Viewson 11-03 Shoulder min 2 Views [facility] Imaging Services [place], [place] [id number] Shoulder min 2 Views MR#: [id number] Acct: [id number] Name: ADRIANNA BARNEY Rep #: [id number] : 1960 F 64 From: Nixon Hernandez i, DO PCP: Dr. Deepak Rivers MD Status: [facility] ER Study: Shoulder min 2 Views Date of Exam: 11/03/24 Exam# [id number] Ordering Dr: Luis Geiger DO PROCEDURE: Right shoulder radiographs, three views 11/03/2024 REASON FOR EXAM: PAIN, fall TECHNIQUE: Three views of the right shoulder were obtained. FINDINGS: Three radiographic images of the right shoulder were obtained. Mild degenerative change of the right acromioclavicular joint. No AC joint widening. Included right lung is clear. There is a comminuted displaced fracture of the right humeral head/neck junction. There is a comminuted appearance of the right humeral head. A large portion of the right humeral head is displaced inferior to the glenoid, without significant anterior or posterior dislocation. RAD/Shoulder min 2 Views IMPRESSION: Comminuted displaced fracture of the proximal right humerus/right humeral head as above. There is inferior displacement of a large portion of the right humeral head inferior to the glenoid. Reading Location: [facility] CC: Dr. Deepak Rivers MD; Luis Geiger DO [employer] P[employer] Supervisor: Signed Normal [facility] Sodium levelOrdered By: Susu Teixeira on 11-03-2024 Sodium [Moles/Vol] 133 mmol/L 133-145 [facility] White blood cell (WBC) count Ordered By: Lyly Teixeira on 11-03-2024 WBC (Bld) [#/Vol] 12.7 10*3/uL High 4.4-11.0 [facility] CNOVon 08-15-2024 CNOV Office Visit ([facility]AMPWS ) ADRIANNA BARNEY ([id number]) 1960 F Date Time Provider Department 08/15/24 12:00 PM DEEPAK RIVERS During your visit today, we recorded the following information about you: Pulse Respiration Blood pressure Weight 78/minute 16/minute 138/88 98.8 kg Deepak Rivers MD 08/15/2024 3:41 PM Signed Chief Complaint Patient presents with: 6 Month Exam Immunizations: Flu vaccination HPI Adrianna Barney is a 64 year old female who presents here today for a 6 month follow up. Continues to still smoke, not interested in quitting at this time. Insomnia: Chronic insomnia. Currently taking Ambien CR 12.5 mg 1 tab at bedtime. Sleep varies nightly. Denies any side effects with use of medication. HTN: Not controlled over the past several visits. Denies monitoring her blood pressure at home. Denies any symptoms of chest pain, sob, or dizziness. On current regimen of Amlodipine 10 mg once daily, Losartan 100 mg once daily and HCTZ 25 mg once daily. Lipids: Admits to not watching her diet as closely as she should. No formal exercise, but does a lot of activities. Currently taking Zocor 20 mg once daily. Tolerating without side effects. Emphysema: using Albuterol inhaler prn. Past medical history, appointments, medications, allergies reviewed. Previous Medical History PAST MEDICAL HISTORY Diagnosis Date Hyperlipidemia Insomnia Previous Surgical History PAST SURGICAL HISTORY Procedure Laterality Date DELIVERY ONLY x 3 CHOLECYSTECTOMY HX REM LESIO TRUNK,ARM,LEG 1.1 -2.0CM Right 06/09/15 Exc. right scapular angle cyst Family History FAMILY HISTORY Problem Relation Age of Onset Heart Mother Diabetes Brother Patient Allergies ALLERGIES No Known Allergies Current Medications Current Outpatient Medications on File Prior to Visit Medication Sig Zolpidem (AMBIEN CR) 12.5 mg CR tablet Take 1 tablet by mouth at bedtime as needed for up to 90 days. hydroCHLOROthiazide 25 mg tablet Take 1 tablet by mouth once daily. losartan (COZAAR) 100 mg tablet Take 1 tablet by mouth once daily. amLODIPine (NORVASC) 10 mg tablet Take 1 tablet by mouth once daily. albuterol HFA (PROAIR HFA) 90 mcg/actuation inhaler Inhale 2 Puffs as instructed every 4 hours as needed for wheezing/shortness of breath. simvastatin (ZOCOR) 20 mg tablet Take 1 tablet by mouth daily at bedtime. cholecalciferol, vitamin D3, (VITAMIN D3) 4,000 unit cap 1 po daily coenzyme Q10 (COENZYME Q-10) 100 mg cap capsule Take 1 capsule by mouth once daily. No current facility-administered medications on file prior to visit. Social History Social History Tobacco Use Smoking status: Every Day Current packs/day: 1.00 Average packs/day: 1 pack/day for 37.0 years (37.0 ttl pk-yrs) Types: Cigarettes Smokeless tobacco: Never Tobacco comments: about 16 cigs per day Vaping Use Vaping status: Never Used Substance Use Topics Alcohol use: No Drug use: No EXAM: BP 138/88 Pulse 78 Resp 16 Wt 98.8 kg (217 lb 13 oz) LMP 02/25/2012 BMI 35.21 kg/m? General Appearance: Well appearing, alert, in no acute distress, well-hydrated, well nourished. and Overweight. Lungs: Lungs clear to auscultation. No wheezing, rhonchi, rales.. Heart: RRR without murmur, gallop, or rubs. No ectopy. Health Maintenance List Spirometry Never done HIV Screening Never done BP Controlled (<130/80) Never done Alpha-1 Antitrypsin Deficiency Screening Never done Mammogram Screening due on 05/25/2016 Colorectal Cancer Screening due on 02/23/2020 Lung Cancer Screening due on 05/06/2020 Cervical Cancer Screening due on 07/23/2020 Influenza Vaccine(1) due on 04/17/2024 RSV Vaccine(1 - Risk 60-74 years 1-dose series) due on 02/08/2025 Covid-19 Vaccine( - season) due on 08/15/2025 Depression Screening due on 02/08/2025 Anxiety Screening due on 02/08/2025 Annual PCP Team Chronic Disease Visit due on 08/15/2025 Diabetes Screening due on 02/05/2027 DTaP,Tdap,Td Vaccine(2 - Td or Tdap) due on 02/12/2028 Lipid Screening due on 02/05/2029 Hepatitis C Screening Completed Shingrix Vaccine Completed Pneumococcal Vaccine: 50+ Completed Data reviewed None ASSESSMENT/PLAN: 1. Primary insomnia - ICD9: 307.42, ICD10: F51.01 (primary diagnosis) Continue current medications. 2. Tobacco abuse disorder - ICD9: 305.1, ICD10: Z72.0 - Cessation encouraged. - Physiologic and physical aspects of tobacco addiction as well as strategies for quitting were discussed. - Counseling was given focusing on the harmful effects of this addiction especially given the patient's medical condition(s) which will be worsened because of the chemicals in tobacco. 3. Mixed hyperlipidemia - ICD9: 272.2, ICD10: E78.2 - Control undetermined, due for labs 4. Pulmonary emphysema, unspecified emphysema (more content not included)... Normal [facility] 05-05-2024 [facility] ADRIANNA BAR[facility] ([id number]) 1960 F Date Time Provider Department 05/05/24 DEEPAK RIVERS [facility] During your visit today, we recorded the following information about you: Jazmine Gordon, STAR 05/05/2024 2:51 PM Signed Patient reports Dr. Rivers wrote Rx for her Ambien with quantity of 30 with 2 refills. Patient states her insurance will only allow a fill of 15 tablets at a time. States Dr. Rivers has sent a letter in the past to [facility] authorizing 30 tablets to be filled and is asking if PCP office can send a new letter? Please call patient with update. Thank you. Nigel Viveros APRN.[facility] 05/06/2024 12:43 PM Signed Letter written. Can you fax to [facility] and let the patient know? Nigel Viveros APRN.Marleni Yang LPN 05/06/2024 12:49 PM Signed Faxed to [facility], patient notified. Allergies As of Date: 05/05/2024 (No Known Allergies) Date Reviewed: 04/08/2024 Reviewed by: Mimi Self LPN - Fully Assessed Reason for Visit: Letter Request [Other] Prescriptions as of 06/15/2024 - Zolpidem (AMBIEN CR) 12.5 mg CR tablet Take 1 tablet by mouth at bedtime as needed for up to 90 days. - hydroCHLOROthiazide 25 mg tablet Take 1 tablet by mouth once daily. - losartan (COZAAR) 100 mg tablet Take 1 tablet by mouth once daily. - amLODIPine (NORVASC) 10 mg tablet Take 1 tablet by mouth once daily. - albuterol HFA (PROAIR HFA) 90 mcg/actuation inhaler Inhale 2 Puffs as instructed every 4 hours as needed for wheezing/shortness of breath. - simvastatin (ZOCOR) 20 mg tablet Take 1 tablet by mouth daily at bedtime. - cholecalciferol, vitamin D3, (VITAMIN D3) 4,000 unit cap 1 po daily - coenzyme Q10 (COENZYME Q-10) 100 mg cap capsule Take 1 capsule by mouth once daily. Problem List As Of Date 05/05/2024 Noted Resolved Primary insomnia [F51.01] 05/11/2015 Weight gain [R63.5] 05/11/2015 Tobacco abuse disorder [Z72.0] 05/11/2015 Sebaceous cyst [L72.3] 05/25/2015 Vitamin D deficiency [E55.9] 04/21/2017 Mixed hyperlipidemia [E78.2] 2018 Encounter for screening for lung cancer [Z12.2] 04/08/2019 Pulmonary emphysema (HCC) [J43.9] 08/30/2019 Hypertension [I10] 08/15/2022 Letter Text Encounter Status:Closed by MARLENI MUNGUIA on 05/06/24 [facility] CNOVon 04-08-2024 CNOV Office Visit (FAMPWS ) ADRIANNA BARNEY ([id number]) 1960 F Date Time Provider Department 04/08/24 11:00 AM NUZHAT ESTRADA During your visit today, we recorded the following information about you: Pulse Respiration Blood pressure Weight 100/minute 16/minute 140/82 102 kg Nuzhat Estrada APRN.[employer] 04/08/2024 1:06 PM Signed This is a 63 year old female who presents today with: Patient presents with: Wellness HISTORY OF PRESENT ILLNESS: Adrianna Barney is a 63 year old female. Patient presents with: Wellness Wellness Diet: Eating a well balanced diet. Exercise: Trying to stay busy at home, watches grandchildren. Vision: Had exam, wearing glasses. Dental: Had exam. Sleep: 4-8 hours, varies. Mood: Denies any increased sadness, anxiety, or SI/HI. Tobacco - 1 PPD, not interested in quitting at this time. Insomnia - Chronic. Takes Ambien CR 12.5 mg at night. Medication working well, refers she will have random nights where she cannot fall asleep. HTN - Taking amlodipine 10 mg, Losartan 100 mg once daily and HCTZ 25 mg daily. Not currently checking blood pressure at home. Denies chest pain, palpitations, dizziness, or edema. Lipids - Denies watching her diet but does a lot of activities. Pt currently taking Zocor 20 mg diaily. Mammogram: Due For Mammogram Pap: Has been a long time since last pap, denies wanting to continue screening. Colonoscopy: Willing to have cologuard completed PAST MEDICAL HISTORY: PAST MEDICAL HISTORY No date: Hyperlipidemia No date: Insomnia PAST SURGICAL HISTORY No date: DELIVERY ONLY Comment: x 3 No date: CHOLECYSTECTOMY HX 06/09/15: REM LESIO TRUNK,ARM,LEG 1.1 -2.0CM; Right Comment: Exc. right scapular angle cyst ALLERGIES Patient has no known allergies. MEDICATIONS Current Outpatient Medications Medication Sig hydroCHLOROthiazide 25 mg tablet Take 1 tablet by mouth once daily. losartan (COZAAR) 100 mg tablet Take 1 tablet by mouth once daily. Zolpidem (AMBIEN CR) 12.5 mg CR tablet Take 1 tablet by mouth at bedtime as needed for up to 90 days. amLODIPine (NORVASC) 10 mg tablet Take 1 tablet by mouth once daily. albuterol HFA (PROAIR HFA) 90 mcg/actuation inhaler Inhale 2 Puffs as instructed every 4 hours as needed for wheezing/shortness of breath. simvastatin (ZOCOR) 20 mg tablet Take 1 tablet by mouth daily at bedtime. cholecalciferol, vitamin D3, (VITAMIN D3) 4,000 unit cap 1 po daily coenzyme Q10 (COENZYME Q-10) 100 mg cap capsule Take 1 capsule by mouth once daily. No current facility-administered medications for this visit. FAMILY HISTORY Problem Relation Age of Onset Heart Mother Diabetes Brother Social History Tobacco Use Smoking status: Every Day Current packs/day: 1.00 Average packs/day: 1 pack/day for 37.0 years (37.0 ttl pk-yrs) Types: Cigarettes Smokeless tobacco: Never Tobacco comments: about 16 cigs per day Vaping Use Vaping status: Never Used Substance Use Topics Alcohol use: No Drug use: No REVIEW OF SYSTEMS GENERAL: No weight loss, malaise or fevers/chills HEENT: Negative for frequent or significant headaches, No changes in hearing or vision. NECK: Negative for lumps, goiter, pain and significant neck swelling RESPIRATORY: Negative for cough, hemoptysis, wheezing, dyspnea or shortness of breath CARDIOVASCULAR: Negative for chest pain, leg swelling, orthopnea, or palpitations GI: No nausea, vomiting, or diarrhea/constipation. No hematochezia/melena. No heartburn or reflux symptoms. : No history of dysuria, frequency or incontinence MUSCULOSKELETAL: Negative for joint pain or swelling. SKIN: Negative for lesions, rash, and itching ENDOCRINE: Negative for cold or heat intolerance, polyuria, polydipsia and goiter NEURO: No history of headaches, syncope, paralysis, seizures or tremors MOOD: Negative for depression, anxiety, or suicidal ideation. EXAM: BP 140/82 Pulse 100 Resp 16 Wt 102 kg (224 lb 13.9 oz) LMP 02/25/2012 SpO2 96% BMI 36.36 kg/m? PHYSICAL EXAM: General Appearance: Well appearing, alert, in no acute distress, well-hydrated, well nourished. Skin: Skin color, texture, turgor normal, no suspicious rashes or lesions. Head: Normocephalic, no masses, lesions, tenderness or abnormalities. Eyes: Anicteric sclera. Pupils are equally round and reactive to light. Extraocular movements are intact. Ears: External ears normal, canals clear. TMs pearly chávez. Neck: Supple, no adenopathy; thyroid symmetric, normal size, no bruits. Lungs: Lungs clear to auscultation. No wheezing, rhonchi, rales. Heart: RRR without murmur, gallop, or rubs. No ectopy. Abdomen: Normal abdominal exam, Abdomen soft, non-tender. Bowel sounds normal. No masses, organomegaly. Extremities: No deformities, edema, skin discoloration, clubbing or cyanosis. Good capillary refill. (more content not included)... Normal [facility] CNOVon 02-09-2024 [facility] ADRIANNA BARNEY ([id number]) 1960 F Date Time Provider Department 02/09/24 11:00 AM [facility] During your visit today, we recorded the following information about you: Pulse Respiration Blood pressure Weight 88/minute 18/minute 168/110 101.2 kg Deepak Rivers MD 02/09/2024 11:30 AM Signed Chief Complaint Patient presents with: F/U 6 Month HPI Adrianna Rahmangeraldo is a 63 year old female who presents here today for a 6 month follow up. Here with her spouse for routine visit. Has concerts lined up this summer to go see. Taking care of grandchildren, have 8 total. New one about 2 weeks ago. Taking care of her step-father at home. Tobacco - Still smoking about the same. Not interested in quitting at this time. Insomnia - Chronic. Takes Ambien CR 12.5 mg at night. Denies issues with medication or side effects. Denies feeling drowsy. Reports she barely slept last night, maybe two hours. HTN - Has been uncontrolled over the past several visits. Today states her BP is elevated due to not sleeping well last night. Denies checking her BP at home or having symptoms of chest pain, sob or dizziness. At previous visit Amlodipine was increased to 10 mg daily. Pt also taking Losartan 100 mg once daily and HCTZ 25 mg daily. Lipids - Denies watching her diet but does a lot of activities. Pt currently taking Zocor 20 mg diaily. HM - Behavioral Health Screening completed, negative. Mammogram ordered. Declines Covid vaccine. Declines RSV vaccine. Behavioral Health Screening PHQ-2 Score: 0 (Lower risk for depression) MARY-2 Score: 0 (Lower risk for anxiety) Recommendation: no further intervention at this time Past medical history, appointments, medications, allergies reviewed. Previous Medical History PAST MEDICAL HISTORY Diagnosis Date Hyperlipidemia Insomnia Previous Surgical History PAST SURGICAL HISTORY Procedure Laterality Date DELIVERY ONLY x 3 CHOLECYSTECTOMY HX REM LESIO TRUNK,ARM,LEG 1.1 -2.0CM Right 06/09/15 Exc. right scapular angle cyst Family History FAMILY HISTORY Problem Relation Age of Onset Heart Mother Diabetes Brother Patient Allergies ALLERGIES No Known Allergies Current Medications Current Outpatient Medications on File Prior to Visit Medication Sig amLODIPine (NORVASC) 10 mg tablet Take 1 tablet by mouth once daily. albuterol HFA (PROAIR HFA) 90 mcg/actuation inhaler Inhale 2 Puffs as instructed every 4 hours as needed for wheezing/shortness of breath. simvastatin (ZOCOR) 20 mg tablet Take 1 tablet by mouth daily at bedtime. Zolpidem (AMBIEN CR) 12.5 mg CR tablet Take 1 tablet by mouth at bedtime as needed for up to 90 days. losartan (COZAAR) 100 mg tablet Take 1 tablet by mouth once daily. hydroCHLOROthiazide 25 mg tablet Take 1 tablet by mouth once daily. cholecalciferol, vitamin D3, (VITAMIN D3) 4,000 unit cap 1 po daily coenzyme Q10 (COENZYME Q-10) 100 mg cap capsule Take 1 capsule by mouth once daily. No current facility-administered medications on file prior to visit. Social History Social History Tobacco Use Smoking status: Every Day Packs/day: 1.00 Years: 37.00 Additional pack years: 0.00 Total pack years: 37.00 Types: Cigarettes Smokeless tobacco: Never Tobacco comments: about 16 cigs per day Vaping Use Vaping Use: Never used Substance Use Topics Alcohol use: No Drug use: No EXAM: BP 168/110 Pulse 88 Resp 18 Wt 101.2 kg (223 lb) LMP 02/25/2012 BMI 36.05 kg/m? General Appearance: Well appearing, alert, in no acute distress, well-hydrated, well nourished. and Obese. Lungs: Lungs clear to auscultation. No wheezing, rhonchi, rales.. Heart: RRR without murmur, gallop, or rubs. No ectopy. Health Maintenance List Spirometry Never done BP Controlled (<130/80) Never done Alpha-1 Antitrypsin Deficiency Screening Never done Mammogram Screening due on 05/25/2016 Lung Cancer Screening due on 05/06/2020 RSV Vaccine(1 - 1-dose 60+ series) Never done Covid-19 Vaccine( season) Never done Behavioral Health Screening Never done Colorectal Cancer Screening due on 02/13/2024 Cervical Cancer Screening due on 08/07/2024 HIV Screening due on 08/07/2024 Annual PCP Team Chronic Disease Visit due on 08/07/2024 Diabetes Screening due on 02/05/2027 DTaP,Tdap,Td Vaccine(2 - Td or Tdap) due on 02/12/2028 Lipid Screening due on 02/05/2029 Influenza Vaccine Completed Hepatitis C Screening Completed Shingrix Vaccine Completed Pneumococcal Vaccine Completed Data reviewed Appointment on 02/06/2024 Component Date Value Protein, Total 02/06/2024 6.8 Albumin 02/06/2024 4.3 Calcium, Total 02/06/2024 9.5 Bilirubin, Total 02/06/2024 0.3 Alkaline Phosphatase 02/06/2024 101 AST 02/06/2024 19 ALT 02/06/2024 16 Glucose 02/06/2024 84 BUN 06 (more content not included)... Normal [facility] Comprehensive metabolic 2000 panelon 02-06-2024 Albumin [Mass/Vol] 4.3 g/dL Normal 3.9-4.9 [facility] Comment on above: Order Comment: Speci men Type: BLOOD SPECIMEN Ordering Facility: [facility] Address: [address] [id number] Performed By: #### 2 4331-1, 50470-2 #### [facility] CLIA [id number] [address] [place] [address] [place] ALP [Catalytic activity/Vol] 101 U/L Normal 34-123 [facility] Comment on above: Order Comment: Speci men Type: BLOOD SPECIMEN Ordering Facility: [facility] Address: [address] [place], [place] [id number] Performed By: #### 2 4331-1, #### [facility] CLIA [id number] [address] [place] [address] [place] ALT [Catalytic activity/Vol] 16 U/L Normal 7-38 [facility] Comment on above: Order Comment: Speci men Type: BLOOD SPECIMEN Ordering Facility: [facility] Address: [address] [place] [address] Performed By: #### 2 4331-1, 77063-1 #### [facility] CLIA [id number] [address] [place] [address] [place] Anion gap [Moles/Vol] 11 mmol/L Normal 8-15 [facility] Comment on above: Order Comment: Speci men Type: BLOOD SPECIMEN Ordering Facility: [facility] Address: [address] [place], [place] [id number] Performed By: #### 2 4331-1, 15950-5 #### [facility] CLIA [id number] [address] [id number] [place] AST [Catalytic activity/Vol] 19 U/L Normal 13-35 [facility] Comment on above: Order Comment: Speci men Type: BLOOD SPECIMEN Ordering Facility: [facility] Address: [address] [id number] Performed By: #### 2 4331-1, 52270-8 #### [facility] CLIA [id number] [address] [place] [address] [place] Bilirubin [Mass/Vol] 0.3 mg/dL Normal 0.2-1.3 [facility] Comment on above: Order Comment: Speci men Type: BLOOD SPECIMEN Ordering Facility: [facility] Address: [address] [place] [address] Performed By: #### 2 4331-1, 55255-1 #### [facility] CLIA [id number] [address] [place] [address] [place] Calcium [Mass/Vol] 9.5 mg/dL Normal 8.5-10.2 [facility] Comment on above: Order Comment: Speci men Type: BLOOD SPECIMEN Ordering Facility: [facility] Address: [address] [place] [address] Performed By: #### 2 4331-1, 12231-4 #### [facility] CLIA [id number] [address] [place] [address] [place] Chloride [Moles/Vol] 104 mmol/L Normal 98-107 [facility] Comment on above: Order Comment: Speci men Type: BLOOD SPECIMEN Ordering Facility: [facility] Address: [address] [place] [address] Performed By: #### 2 4331-1, 89721-0 #### [facility] CLIA [id number] [address] [place] [address] [place] CO2 [Moles/Vol] 27 mmol/L Normal 22-30 [facility] Comment on above: Order Comment: Speci men Type: BLOOD SPECIMEN Ordering Facility: [facility] Address: [address] [place] [address] Performed By: #### 2 4331-1, 68048-5 #### [facility] CLIA [id number] [address] [place], [place] [id number] [place] Creatinine [Mass/Vol] 0.71 mg/dL Normal 0.58-0.96 [facility] Comment on above: Order Comment: Ja cardenas Type: BLOOD SPECIMEN Ordering Facility: [facility] Address: [address] [place] [address] Performed By: #### 2 4331-1, 13865-0 #### [facility] CLIA [id number] [address] [place] [address] [place] Creatinine and Glomerular filtration rate.predicted panel (S/P/Bld) 96 mL/min/1.73m??? Normal >=60 [facility] Comment on above: Order Comment: Ja cardenas Type: BLOOD SPECIMEN Ordering Facility: [facility] Address: [address] [place] [address] Result Comment: Noelle mated Glomerular Filtration Rate (eGFR) is calculated using the 2020 CKD-EPI creatinine equation. This equation utilizes serum creatinine, sex, and age as parameters. The creatinine assay has traceable calibration to isotope dilution-mass spectrometry. Refer to KDIGO guidelines for clinical interpretation. In patients with unstable renal function, e.g. those with acute kidney injury, the eGFR may not accurately reflect actual GFR. Performed By: #### 2 4331-1, 45875-6 #### [facility] CLIA [id number] [address] [place] [address] [place] Glucose [Mass/Vol] 84 mg/dL Normal 74-99 [facility] Comment on above: Order Comment: Ja cardenas Type: BLOOD SPECIMEN Ordering Facility: [facility] Address: [address] [place] [address] Result Comment: The [place] Diabetes [employer] (ADA) provides guidance for cutoff values for fasting glucose and random glucose. The ADA defines fasting as no caloric intake for at least 8 hours. Fasting plasma glucose results between 100 to 125 mg/dL indicate increased risk for diabetes (prediabetes). Fasting plasma glucose results greater than or equal to 126 mg/dL meet the criteria for diagnosis of diabetes. In the absence of unequivocal hyperglycemia, results should be confirmed by repeat testing. In a patient with classic symptoms of hyperglycemia or hyperglycemic crisis, random plasma glucose results greater than or equal to 200 mg/dL meet the criteria for diagnosis of diabetes. Reference: Standards of Medical Care in Diabetes 2016, [place] [employer]. Diabetes Care. 2016.39(Suppl 1). Performed By: #### 2 4331-1, 36678-3 #### [facility] CLIA [id number] [address] [place] [address] [place] Potassium [Moles/Vol] 4.3 mmol/L Normal 3.7-5.1 [facility] Comment on above: Order Comment: Speci men Type: BLOOD SPECIMEN Ordering Facility: [facility] Address: [address] [place] [address] Performed By: #### 2 4331-1, 40349-6 #### [facility] CLIA [id number] [address] [place] [address] [place] Protein [Mass/Vol] 6.8 g/dL Normal 6.3-8.0 [facility] Comment on above: Order Comment: Speci men Type: BLOOD SPECIMEN Ordering Facility: [facility] Address: [address] [place] [address] Performed By: #### 2 4331-1, 95178-9 #### [facility] CLIA [id number] [address] [place] [address] [place] Sodium [Moles/Vol] 142 mmol/L Normal 136-144 [facility] Comment on above: Order Comment: Speci men Type: BLOOD SPECIMEN Ordering Facility: [facility] Address: [address] [place] [address] Performed By: #### 2 4331-1, 66085-2 #### [facility] CLIA [id number] [address] [place] [address] [place] Urea nitrogen [Mass/Vol] 12 mg/dL Normal 7-21 [facility] Comment on above: Order Comment: Speci men Type: BLOOD SPECIMEN Ordering Facility: [facility] Address: [address] [place], [place] [address] Performed By: #### 2 4331-1, 32169-0 #### [facility] CLIA [id number] [address] [place] [address] [place] HbA1c (Bld)on 02-06-2024 Average glucose Estimated from glycated hemoglobin (Bld) [Mass/Vol] 126 mg/dL Normal [facility] Comment on above: Order Comment: Ja cardenas Type: BLOOD SPECIMEN Ordering Facility: [facility] Address: [address] [place] [address] Result Comment: eAG: (Estimated average glucose) is a calculated value from HgbA1c and is union contract representative of the average blood glucose level in the last 2-3 month period. Performed By: #### 5 5454-3 #### [facility] CLIA [id number] [address] [place] [address] [place] HbA1c (Bld) [Mass fraction] 6.0 % High 4.3-5.6 [facility] Comment on above: Order Comment: Ja cardenas Type: BLOOD SPECIMEN Ordering Facility: [facility] Address: [address] [place] [address] Result Comment: Amer ican Diabetes Association guidelines indicate that patients with HgbA1c in the range 5.7-6.4% are at increased risk for development of diabetes, and intervention by lifestyle modification may be beneficial. HgbA1c greater or equal to 6.5% is considered diagnostic of diabetes. Performed By: #### 5 5454-3 #### [facility] CLIA [id number] [address] [place] [address] [place] Lipid 1996 panelon 4 Cholesterol [Mass/Vol] 171 mg/dL Normal <200 [facility] Comment on above: Order Comment: Ja cardenas Type: BLOOD SPECIMEN Ordering Facility: [facility] Address: [address] [place] [address] Result Comment: <200 mg/dL, Desirable 200-239 mg/dL, Borderline high >239 mg/dL, High Performed By: #### 2 4331-1, 88265-6 #### [facility] CLIA [id number] [address] OF [facility] Cholesterol in HDL [Mass/Vol] 50 mg/dL Normal >39 [facility] Comment on above: Order Comment: Ja cardenas Type: BLOOD SPECIMEN Ordering Facility: [facility] Address: [address] [place] [address] Result Comment: 40-5 9 mg/dL, Acceptable >59 mg/dL, High: Negative risk factor for coronary heart disease <40 mg/dL, Low: Positive risk factor for coronary heart disease Performed By: #### 2 4331-1, 96638-8 #### [facility] CLIA [id number] [address] [place] [address] OF [facility] Cholesterol in LDL [Mass/Vol] 73 mg/dL Normal <100 [facility] Comment on above: Order Comment: Ja cardenas Type: BLOOD SPECIMEN Ordering Facility: [facility] Address: [address] [place] [address] Result Comment: <100 mg/dL, Optimal 100-129 mg/dL, Near optimal/above optimal 130-159 mg/dL, Borderline high 160-189 mg/dL, High >189 mg/dL, Very high Secondary prevention optimal LDL Cholesterol levels are recommended to be < 70 mg/dL Performed By: #### 2 4331-1, 10968-5 #### [facility] CLIA [id number] [address] [place] [address] OF [facility] Cholesterol in LDL/Cholesterol in HDL [Mass ratio] 1.46 {ratio} Normal <2.54 [facility] Comment on above: Order Comment: Ja cardenas Type: BLOOD SPECIMEN Ordering Facility: [facility] Address: [address] [place] [address] Result Comment: Marybel dill: 1. National Cholesterol Education Program ATP III Guideline At-A-Glance Quick Desk Reference: National Heart, Lung, and Blood [place]. National Institutes of Health. 2001: NIH Publication No. 01-3305. 2. An International Atherosclerosis Society position paper: global recommendations for the management of dyslipidemia: executive summary, Atherosclerosis. 2014: 232(2):410-413. Performed By: #### 2 4331-1, 91673-2 #### [facility] CLIA [id number] [address] [place] [address] [place] Cholesterol in VLDL [Mass/Vol] 48 mg/dL High <30 [facility] Comment on above: Order Comment: Speci men Type: BLOOD SPECIMEN Ordering Facility: [facility] Address: [address] [place] [address] Performed By: #### 2 4331-1, #### [facility] CLIA [id number] [address] [place] [address] [place] Cholesterol non HDL [Mass/Vol] 121 mg/dL Normal <130 [facility] Comment on above: Order Comment: Speci men Type: BLOOD SPECIMEN Ordering Facility: [facility] Address: [address] [place] [address] Result Comment: <130 mg/dL, Optimal 130-159 mg/dL, Near optimal/above optimal 160-189 mg/dL, Borderline high 190-219 mg/dL, High >219 mg/dL, Very high Secondary prevention optimal non HDL Cholesterol levels are recommended to be <100 mg/dL Performed By: #### 2 4331-1, #### [facility] CLIA [id number] [address] [place] [address] [place] Cholesterol.total/Felicity sterol in HDL [Mass ratio] 3.42 {ratio} Normal <5.10 [facility] Comment on above: Order Comment: Speci men Type: BLOOD SPECIMEN Ordering Facility: [facility] Address: [address] [place], [place] [address] Performed By: #### 2 4331-1, 54932-9 #### [facility] CLIA [id number] [address] [place], [place] [id number] [place] FASTING TIME 12 hrs Normal [facility] Comment on above: Order Comment: Speci men Type: BLOOD SPECIMEN Ordering Facility: [facility] Address: [address] [place] [address] Performed By: #### 2 4331-1, 58128-0 #### [facility] CLIA [id number] [address] [place] [address] [place] Triglyceride [Mass/Vol] 242 mg/dL High <150 [facility] Comment on above: Order Comment: Speci men Type: BLOOD SPECIMEN Ordering Facility: [facility] Address: [address] [place] [address] Result Comment: <150 mg/dL, Normal 150-199 mg/dL, Borderline high 200-499 mg/dL, High >499 mg/dL, Very high Performed By: #### 2 4331-1, 85517-8 #### [facility] CLIA [id number] [address] [place] [address] [place] OBSOLETEon 05-11-2020 OBSOLETE Refill ([facility]) ADRIANNA BARNEY ([id number]) 1960 F Date Time Provider Department 05/11/20 FRANSISCO YOUNG [facility] During your visit today, we recorded the following information about you: Kd Mcclelland CMA 05/11/2020 1:56 PM Signed Patient called requesting the following refill. Pending Prescriptions Disp Refills ZOLPIDEM ER 6.25 MG TABLET,EXTENDED RELEASE,MULTIPHASE 14 tablet 0 Sig: TAKE 1 TABLET BY MOUTH AT BEDTIME NEEDED FOR UP TO 14 DAYS. FOR SEDATION TRENT Class: C-IV EDMUND: Yes Last refill: 04/27/2020 Patient last appointment: 04/27/2020 Patient next appointment: 05/21/2020 Patient Phone numbers: [phone] (home) Request is for script(s) to be escript to pharmacy. BELL Curry, 05/11/2020 2:01 PM Signed oARRS report generated and reviewed Med refilled Allergies As of Date: 05/11/2020 (No Known Allergies) Date Reviewed: 04/27/2020 Reviewed by: Fransisco Young - Fully Assessed Reason for Visit: Refill Request [94] Visit Diagnoses:Primary insomnia [F51.01] Routine general medical examination at a health care facility [Z00.00] Order(s):zolpidem (AMBIEN CR) 6.25 mg CR tabletTake 1 tablet by mouth at bedtime as needed for up to 30 days.Disp: 30 tabletRfl: 0 Prescriptions as of 05/11/2020 Sig: ZOLPIDEM ER 6.25 MG TABLET,EX* Take 1 tablet by mouth at bed* NICOTINE 21 MG/24 HR DAILY TR* Apply 1 Patch as directed coni* NICOTINE 14 MG/24 HR DAILY TR* Apply 1 Patch as directed coni* NICOTINE 7 MG/24 HR DAILY TRA* Apply 1 Patch as directed coni* ALBUTEROL SULFATE HFA 90 MCG/* Inhale 2 Puffs as instructed * SIMVASTATIN 20 MG TABLET TAKE 1 TABLET BY MOUTH DAILY * CHOLECALCIFEROL (VITAMIN D3) * 1 po daily COENZYME Q10 100 MG CAPSULE Take 1 capsule by mouth once * Problem List As Of Date 05/11/2020 Noted Resolved Primary insomnia [F51.01] 05/11/2015 More... Weight gain [R63.5] 05/11/2015 More... Tobacco abuse disorder [Z72.0] 05/11/2015 More... Sebaceous cyst [L72.3] 05/25/2015 More... Vitamin D deficiency [E55.9] 04/21/2017 Mixed hyperlipidemia [E78.2] 2018 Encounter for screening for lung cancer [Z12.2] 04/08/2019 Pulmonary emphysema (HCC) [J43.9] 08/30/2019 Prescriptions ordered this encounter Disp Refills Start End ZOLPIDEM ER 6.25 MG TABLET,EXTENDED * 30 t* 0 05/11/2020 06/10/2020 Route: ORAL Sig: Take 1 tablet by mouth at bedtime as needed for up to 30 days. Medications Discontinued During This Encounter Prescriptions - zolpidem (AMBIEN CR) 6.25 mg CR tablet (Discontinued) Take 1 tablet by mouth at bedtime as needed for up to 14 days. For Sedation Encounter Status:Closed by FRANSISCO YOUNG DO on 05/11/20 Normal [facility] CNOVon 04-27-2020 CN Office Visit ([facility]) ADRIANNA BARNEY ([id number]) 1960 F Date Time Provider Department 04/27/20 9:00 AM FRANSISCO YOUNG [facility] During your visit today, we recorded the following information about you: Temperature Pulse Respiration Blood pressure 96.2 degrees 89/minute 16/minute 166/92 Weight Height 97 kg 1.702 m Fransisco Young DO 04/27/2020 1:14 PM Signed Fransisco Young DO [address] [place] [address] SUBJECTIVE Adrianna Barney is a 60 year old female who presents with Patient presents with: Wellness: needed for work . Nursing notes: There are no exam notes on file for this visit. HPI Here for routine PE Hx of hypercholesterolemia sable on zocor Hx of insomnia stable on ambien, had been on trazodone in the past and did not work Hx of obesity unstable Tobacco abuse unstable 1 ppd Review of Systems Constitutional: Negative for malaise/fatigue and weight loss. Respiratory: Negative for cough and shortness of breath. Cardiovascular: Negative for chest pain, palpitations and leg swelling. Gastrointestinal: Negative for abdominal pain. Musculoskeletal: Negative for joint pain and myalgias. Skin: Negative for rash. Neurological: Negative for dizziness, weakness and headaches. PAST MEDICAL HISTORY Diagnosis Date - Hyperlipidemia - Insomnia PAST SURGICAL HISTORY Procedure Laterality Date - DELIVERY ONLY x 3 - CHOLECYSTECTOMY HX - REM LESIO TRUNK,ARM,LEG 1.1 -2.0CM Right 06/09/15 Exc. right scapular angle cyst Social History Tobacco Use - Smoking status: Current Every Day Smoker Packs/day: 1.00 Years: 37.00 Pack years: 37.00 Types: Cigarettes - Smokeless tobacco: Never Used - Tobacco comment: about 16 cigs per day Substance Use Topics - Alcohol use: No - Drug use: No FAMILY HISTORY Problem Relation Age of Onset - Heart Mother - Diabetes Brother The ROS, medical, surgical, family, and social history were reviewed by Fransisco Young DO ALLERGIES No Known Allergies Current Outpatient Medications Medication Sig - zolpidem (AMBIEN CR) 6.25 mg CR tablet Take 1 tablet by mouth at bedtime as needed for up to 14 days. For Sedation - albuterol HFA (PROAIR HFA) 90 mcg/actuation inhaler Inhale 2 Puffs as instructed every 4 hours as needed for Wheezing/Shortness of Breath. - simvastatin (ZOCOR) 20 mg tablet TAKE 1 TABLET BY MOUTH DAILY AT BEDTIME. - cholecalciferol, vitamin D3, (VITAMIN D3) 4,000 unit cap 1 po daily - coenzyme Q10 (COENZYME Q-10) 100 mg cap capsule Take 1 capsule by mouth once daily. - nicotine (NICODERM) 21 mg/24 hr Apply 1 Patch as directed every 24 hours. - nicotine (NICODERM) 14 mg/24 hr Apply 1 Patch as directed every 24 hours. - nicotine (NICODERM) 7 mg/24 hr Apply 1 Patch as directed every 24 hours. No current facility-administered medications for this visit. OBJECTIVE BP 166/92 (BP Site: Right Arm, BP Position: Sitting, BP Cuff Size: Large Adult) Pulse 89 Temp (!) 35.7 ?C (96.2 ?F) Resp 16 Ht 170.2 cm (5' 7) Wt 97 kg (213 lb 12.8 oz) LMP 02/25/2012 SpO2 99% BMI 33.49 kg/m? BMI 33.49 kg/(m2) Physical Exam Constitutional: She is oriented to person, place, and time and well-developed, well-nourished, and in no distress. HENT: Head: Normocephalic and atraumatic. Right Ear: External ear normal. Left Ear: External ear normal. Nose: Nose normal. Mouth/Throat: Oropharynx is clear and moist. Eyes: Pupils are equal, round, and reactive to light. Conjunctivae and EOM are normal. Neck: Normal range of motion. Neck supple. Cardiovascular: Normal rate, regular rhythm and normal heart sounds. Pulmonary/Chest: Effort normal and breath sounds normal. Abdominal: Soft. Bowel sounds are normal. Musculoskeletal: Normal range of motion. Neurological: She is alert and oriented to person, place, and time. She has normal reflexes. Gait normal. Skin: Skin is warm and dry. Psychiatric: Mood, memory, affect and judgment normal. Procedure note: No notes on file Assessment/Plan: Adrianna was seen today for wellness. Diagnoses and all orders for this visit: Routine general medical examination at a health care facility - zolpidem (AMBIEN CR) 6.25 mg CR tablet; Take 1 tablet by mouth at bedtime as needed for up to 14 days. For Sedation - CBC + DIFF; Future - COMP METABOLIC PANEL; Future - HGB A1C; Future - LIPID PANEL BASIC; Future - TSH BLD; Future - URINALYSIS, WITH MICROSCOPIC; Future - VITAMIN D 25 HYDROXY; Future - ECG B/O W INTERP (MED OFFICE) Primary insomnia - zolpidem (AMBIEN CR) 6.25 mg CR tablet; Take 1 tablet by mouth at bedtime as needed for up to 14 days. For Sedation Vitamin D deficiency - VITAMIN D 25 HYDROXY; Future Screening for colon cancer - COLOGUARD KIT Other orders - nicotine (NICODERM) 21 mg/24 hr; Apply 1 Patch as directed every 24 hours. - nicotine (NICODERM) 14 mg/24 hr; Apply 1 Patch as directed every 24 hours. - nicotine (NICODERM) 7 mg/24 hr; Apply 1 Patch as directed every 24 hours. Get labs done, Refill meds OARRS report generated and reviewed Counseled on quitting smoking, discussed options including patches, she had used chantix in the past spent 5 minutes of time counseling on quitting smoking Try patches Monitor BP keep log of BP Recheck in 2-3 weeks she will check her schedule with watching grand kids Watch Na in diet She will f/u with [facility] for female care DR.Lynne Harrison she will call for appt Refuses colonoscopy will do cologuard Follow up: No follow-ups on file. Fransisco Young DO Referring Provider: SELF [200] Allergies As of Date: 04/27/2020 (No Known Allergies) Date Reviewed: 04/27/2020 Reviewed by: Fransisco Young - Fully Assessed Reason for Visit: Wellness [440] Cmt: needed for work Reason For Visit History Recorded Primary Visit Diagnosis:Routine general medical examination at a health care facility [Z00.00] Other Visit Diagnoses:Primary insomnia [F51.01] Vitamin D deficiency [E55.9] Screening for colon cancer [Z12.11] Order(s):zolpidem (AMBIEN CR) 6.25 mg CR tabletTake 1 tablet by mouth at bedtime as needed for up to 14 days. For SedationDisp: 14 tabletRfl: 0 CBC + DIFF [SQCBCDIF] Order #: [id number] FUTURE COMP METABOLIC PANEL [SQCMP] Order #: [id number] FUTURE HGB A1C [IFHSY5H] Order #: [id number] FUTURE LIPID PANEL BASIC [SQLIPB] Order #: [id number] FUTURE TSH BLD [SQTSH] Order #: [id number] FUTURE URINALYSIS, WITH MICROSCOPIC [SQUAWMIC] Order #: [id number] FUTURE VITAMIN D 25 HYDROXY [SQVITD] Order #: [id number] FUTURE ECG B/O W INTERP (MED OFFICE) [ECG06] Order #: [id number] nicotine (NICODERM) 21 mg/24 hrApply 1 Patch as directed every 24 hours.Disp: 45 PatchRfl: 0 nicotine (NICODERM) 14 mg/24 hrApply 1 Patch as directed every 24 hours.Disp: 14 PatchRfl: 0 nicotine (NICODERM) 7 mg/24 hrApply 1 Patch as directed every 24 hours.Disp: 14 PatchRfl: 0 COLOGUARD KIT [[id number]] Order #: [id number] Prescriptions as of 04/27/2020 Sig: ZOLPIDEM ER 6.25 MG TABLET,EX* Take 1 tablet by mouth at bed* ALBUTEROL SULFATE HFA 90 MCG/* Inhale 2 Puffs as instructed * SIMVASTATIN 20 MG TABLET TAKE 1 TABLET BY MOUTH DAILY * CHOLECALCIFEROL (VITAMIN D3) * 1 po daily COENZYME Q10 100 MG CAPSULE Take 1 capsule by mouth once * NICOTINE 21 MG/24 HR DAILY TR* Apply 1 Patch as directed coni* NICOTINE 14 MG/24 HR DAILY TR* Apply 1 Patch as directed coni* NICOTINE 7 MG/24 HR DAILY TRA* Apply 1 Patch as directed coni* Problem List As Of Date 04/27/2020 Noted Resolved Primary insomnia [F51.01] 05/11/2015 More... Weight gain [R63.5] 05/11/2015 More... Tobacco abuse disorder [Z72.0] 05/11/2015 More... Sebaceous cyst [L72.3] 05/25/2015 More... Vitamin D deficiency [E55.9] 04/21/2017 Mixed hyperlipidemia [E78.2] 2018 Encounter for screening for lung cancer [Z12.2] 04/08/2019 Pulmonary emphysema (HCC) [J43.9] 08/30/2019 Prescriptions ordered this encounter Disp Refills Start End ZOLPIDEM ER 6.25 MG TABLET,EXTENDED * 14 t* 0 04/27/2020 05/11/2020 Route: ORAL Sig: Take 1 tablet by mouth at bedtime as needed for up to 14 days. For Sedation NICOTINE 21 MG/24 HR DAILY TRANSDERM* 45 P* 0 04/27/2020 Route: TRANSDERM. Sig: Apply 1 Patch as directed every 24 hours. NICOTINE 14 MG/24 HR DAILY TRANSDERM* 14 P* 0 04/27/2020 Route: TRANSDERM. Sig: Apply 1 Patch as directed every 24 hours. NICOTINE 7 MG/24 HR DAILY TRANSDERMA* 14 P* 0 04/27/2020 Route: TRANSDERM. Sig: Apply 1 Patch as directed every 24 hours. Medications Discontinued During This Encounter Prescriptions - zolpidem (AMBIEN CR) 6.25 mg CR tablet (Discontinued) Take 1 tablet by mouth at bedtime as needed for up to 14 days. For Sedation Follow-up and Disposition History Recorded Encounter Status:Closed by FRANSISCO YOUNG DO on 04/27/20 [facility] PROGRESSon 04-27-2020 PROGRESS HNO ID: [id number] Author: Fransisco Young Service: ? Author Type: Physician Type: Progress Notes Filed: 04/27/2020 1:14 PM Note Text: Fransisco Young DO [address] [place] [address] SUBJECTIVE Adrianna Barney is a 60 year old female who presents with Patient presents with: Wellness: needed for work . Nursing notes: There are no exam notes on file for this visit. HPI Here for routine PE Hx of hypercholesterolemia sable on zocor Hx of insomnia stable on ambien, had been on trazodone in the past and did not work Hx of obesity unstable Tobacco abuse unstable 1 ppd Review of Systems Constitutional: Negative for malaise/fatigue and weight loss. Respiratory: Negative for cough and shortness of breath. Cardiovascular: Negative for chest pain, palpitations and leg swelling. Gastrointestinal: Negative for abdominal pain. Musculoskeletal: Negative for joint pain and myalgias. Skin: Negative for rash. Neurological: Negative for dizziness, weakness and headaches. PAST MEDICAL HISTORY Diagnosis Date - Hyperlipidemia - Insomnia PAST SURGICAL HISTORY Procedure Laterality Date - DELIVERY ONLY x 3 - CHOLECYSTECTOMY HX - REM LESIO TRUNK,ARM,LEG 1.1 -2.0CM Right 06/09/15 Exc. right scapular angle cyst Social History Tobacco Use - Smoking status: Current Every Day Smoker Packs/day: 1.00 Years: 37.00 Pack years: 37.00 Types: Cigarettes - Smokeless tobacco: Never Used - Tobacco comment: about 16 cigs per day Substance Use Topics - Alcohol use: No - Drug use: No FAMILY HISTORY Problem Relation Age of Onset - Heart Mother - Diabetes Brother The ROS, medical, surgical, family, and social history were reviewed by Fransisco Young DO ALLERGIES No Known Allergies Current Outpatient Medications Medication Sig - zolpidem (AMBIEN CR) 6.25 mg CR tablet Take 1 tablet by mouth at bedtime as needed for up to 14 days. For Sedation - albuterol HFA (PROAIR HFA) 90 mcg/actuation inhaler Inhale 2 Puffs as instructed every 4 hours as needed for Wheezing/Shortness of Breath. - simvastatin (ZOCOR) 20 mg tablet TAKE 1 TABLET BY MOUTH DAILY AT BEDTIME. - cholecalciferol, vitamin D3, (VITAMIN D3) 4,000 unit cap 1 po daily - coenzyme Q10 (COENZYME Q-10) 100 mg cap capsule Take 1 capsule by mouth once daily. - nicotine (NICODERM) 21 mg/24 hr Apply 1 Patch as directed every 24 hours. - nicotine (NICODERM) 14 mg/24 hr Apply 1 Patch as directed every 24 hours. - nicotine (NICODERM) 7 mg/24 hr Apply 1 Patch as directed every 24 hours. No current facility-administered medications for this visit. OBJECTIVE BP 166/92 (BP Site: Right Arm, BP Position: Sitting, BP Cuff Size: Large Adult) Pulse 89 Temp (!) 35.7 ?C (96.2 ?F) Resp 16 Ht 170.2 cm (5' 7) Wt 97 kg (213 lb 12.8 oz) LMP 02/25/2012 SpO2 99% BMI 33.49 kg/m? BMI 33.49 kg/(m2) Physical Exam Constitutional: She is oriented to person, place, and time and well-developed, well-nourished, and in no distress. HENT: Head: Normocephalic and atraumatic. Right Ear: External ear normal. Left Ear: External ear normal. Nose: Nose normal. Mouth/Throat: Oropharynx is clear and moist. Eyes: Pupils are equal, round, and reactive to light. Conjunctivae and EOM are normal. Neck: Normal range of motion. Neck supple. Cardiovascular: Normal rate, regular rhythm and normal heart sounds. Pulmonary/Chest: Effort normal and breath sounds normal. Abdominal: Soft. Bowel sounds are normal. Musculoskeletal: Normal range of motion. Neurological: She is alert and oriented to person, place, and time. She has normal reflexes. Gait normal. Skin: Skin is warm and dry. Psychiatric: Mood, memory, affect and judgment normal. Procedure note: No notes on file Assessment/Plan: Adrianna was seen today for wellness. Diagnoses and all orders for this visit: Routine general medical examination at a health care facility - zolpidem (AMBIEN CR) 6.25 mg CR tablet; Take 1 tablet by mouth at bedtime as needed for up to 14 days. For Sedation - CBC + DIFF; Future - COMP METABOLIC PANEL; Future - HGB A1C; Future - LIPID PANEL BASIC; Future - TSH BLD; Future - URINALYSIS, WITH MICROSCOPIC; Future - VITAMIN D 25 HYDROXY; Future - ECG B/O W INTERP (MED OFFICE) Primary insomnia - zolpidem (AMBIEN CR) 6.25 mg CR tablet; Take 1 tablet by mouth at bedtime as needed for up to 14 days. For Sedation Vitamin D deficiency - VITAMIN D 25 HYDROXY; Future Screening for colon cancer - COLOGUARD KIT Other orders - nicotine (NICODERM) 21 mg/24 hr; Apply 1 Patch as directed every 24 hours. - nicotine (NICODERM) 14 mg/24 hr; Apply 1 Patch as directed every 24 hours. - nicotine (NICODERM) 7 mg/24 hr; Apply 1 Patch as directed every 24 hours. Get labs done, Refill meds OARRS report generated and reviewed Counseled on quitting smoking, discussed options including patches, she had used chantix in the past spent 5 minutes of time counseling on quitting smoking Try patches Monitor BP keep log of BP Recheck in 2-3 weeks she will check her schedule with watching grand kids Watch Na in diet She will f/u with [facility] for female care DR.Lynne Harrison she will call for appt Refuses colonoscopy will do cologuard Follow up: No follow-ups on file. Fransisco Young DO Normal [facility] OBSOLETEon 04-20-2020 [facility] ADRIANNA BARNEY ([id number]) 1960 F Date Time Provider Department 04/20/20 DA[facility] PARRISH [facility] During your visit today, we recorded the following information about you: Merline Zamarripa 04/20/2020 10:35 AM Signed Patient called requesting the following refill. Patient's last appointment: with Dawna Parrish MD was 01/13/2020 via telephone. Future visit: 04/27/2020 Last refill: 01/30/2020 Pending Prescriptions Disp Refills ZOLPIDEM ER 6.25 MG TABLET,EXTENDED RELEASE,MULTIPHASE 30 tablet 2 Sig: Take 1 tablet by mouth at bedtime as needed for up to 30 days. For Sedation TRENT Class: C-IV EDMUND: No Patient Phone numbers: [phone] (home) Request is for script(s) to be escript to pharmacy. Merline Sotomayor DO 04/20/2020 2:12 PM Signed Currently covering for Dr. Parrish who is no longer at this office. Short-term medication refill provided. Please have patient schedule appointment for transfer of care to new provider. Thank You, Maura Soto CMA 04/20/2020 3:51 PM Signed Patient called requesting the following refill. Re-pending order of this medication due to the Patient requesting that the medication is escript to the Pharmacy. Pt has a appointment scheduled to be seen in the office on 04/27/[address] Young. Please Advise Thank You Marissa Soto CMA Pending Prescriptions Disp Refills ZOLPIDEM ER 6.25 MG TABLET,EXTENDED RELEASE,MULTIPHASE 14 tablet 0 Sig: Take 1 tablet by mouth at bedtime as needed for up to 14 days. For Sedation TRENT Class: C-IV EDMUND: No Last refill: 04/20/2020 Patient last appointment: 01/13/2020 Patient next appointment: Visit date not found Patient Phone numbers: [phone] (home) Request is for script(s) to be escript to pharmacy. BELL Vance CMA 04/20/2020 3:53 PM Signed Addended by: MARISSA SOTO CMA on: 04/20/2020 03:53 PM Modules accepted: Orders Marissa Soto CMA 04/24/2020 9:48 AM Signed Patient called into the office regarding this medication to be escript to the Pharmacy. Please Advise Thank You BELL Vance DO 04/24/2020 11:59 AM Signed Pt needs appt for medication refills as it is a controlled substance Kandy Schafer 04/25/2020 8:40 AM Addendum Patient called for rx, per information below informed patient she would need an appt before refill. Offered patient earlier appt today with a provider in the [address] office. Patient stated she will wait until Thursday, and disconnected call. Kandy Schafer 04/25/2020 08:39:33 Allergies As of Date: 04/20/2020 (No Known Allergies) Date Reviewed: 08/30/2019 Reviewed by: Jenniffer Bailey) Buitrago, SENIOR ENVIRONMENTAL PRACTICE LEADER - Fully Assessed Reason for Visit: Refill Request [94] Cmt: zolpidem er 6.25 mg Refill Request [94] Reason For Visit History Recorded Visit Diagnosis:Primary insomnia [F51.01] Order(s):zolpidem (AMBIEN CR) 6.25 mg CR tabletTake 1 tablet by mouth at bedtime as needed for up to 14 days. For SedationDisp: 14 tabletRfl: 0 Prescriptions as of 04/20/2020 Sig: ZOLPIDEM ER 6.25 MG TABLET,EX* Take 1 tablet by mouth at bed* ALBUTEROL SULFATE HFA 90 MCG/* Inhale 2 Puffs as instructed * SIMVASTATIN 20 MG TABLET TAKE 1 TABLET BY MOUTH DAILY * CHOLECALCIFEROL (VITAMIN D3) * 1 po daily COENZYME Q10 100 MG CAPSULE Take 1 capsule by mouth once * Problem List As Of Date 04/20/2020 Noted Resolved Primary insomnia [F51.01] 05/11/2015 More... Weight gain [R63.5] 05/11/2015 More... Tobacco abuse disorder [Z72.0] 05/11/2015 More... Sebaceous cyst [L72.3] 05/25/2015 More... Vitamin D deficiency [E55.9] 04/21/2017 Mixed hyperlipidemia [E78.2] 2018 Encounter for screening for lung cancer [Z12.2] 04/08/2019 Pulmonary emphysema (HCC) [J43.9] 08/30/2019 Prescriptions ordered this encounter Disp Refills Start End ZOLPIDEM ER 6.25 MG TABLET,EXTENDED * 14 t* 0 04/20/2020 05/04/2020 Class: Print RX Route: ORAL Sig: Take 1 tablet by mouth at bedtime as needed for up to 14 days. For Sedation Medications Discontinued During This Encounter Prescriptions - zolpidem (AMBIEN CR) 6.25 mg CR tablet (Discontinued) Take 1 tablet by mouth at bedtime as needed for up to 30 days. For Sedation Encounter Status:Closed by MAURA SOTOMAYOR DO on 04/20/20 [facility] OBSOLETEon 01-30-2020 OBSOLETE Refill ([facility]) ADRIANNA BARNEY ([id number]) 1960 F Date Time Provider Department 01/30/20 DAWNA PARRISH During your visit today, we recorded the following information about you: Haley Villasenor Reg 01/30/2020 8:06 AM Signed Pharmacy faxed requesting the following refill. Pending Prescriptions Disp Refills ZOLPIDEM ER 6.25 MG TABLET,EXTENDED RELEASE,MULTIPHASE 30 tablet 2 Sig: Take 1 tablet by mouth at bedtime as needed for up to 30 days. For Sedation TRENT Class: C-IV EDMUND: No Last refill: 11/10/2019 Patient last appointment: 01/13/2020 Patient next appointment: 02/29/2020 Patient Phone numbers: [phone] (home) Request is for script(s) to be escript to pharmacy. Haley Villasenor Reg Allergies As of Date: 01/30/2020 (No Known Allergies) Date Reviewed: 08/30/2019 Reviewed by: Jenniffer Bailey) SEGUNDO Buitrago - Fully Assessed Reason for Visit: Refill Request [94] Visit Diagnosis:Primary insomnia [F51.01] Order(s):zolpidem (AMBIEN CR) 6.25 mg CR tabletTake 1 tablet by mouth at bedtime as needed for up to 30 days. For SedationDisp: 30 tabletRfl: 2 Prescriptions as of 01/30/2020 Sig: ZOLPIDEM ER 6.25 MG TABLET,EX* Take 1 tablet by mouth at bed* ALBUTEROL SULFATE HFA 90 MCG/* Inhale 2 Puffs as instructed * SIMVASTATIN 20 MG TABLET TAKE 1 TABLET BY MOUTH DAILY * CHOLECALCIFEROL (VITAMIN D3) * 1 po daily COENZYME Q10 100 MG CAPSULE Take 1 capsule by mouth once * Problem List As Of Date 01/30/2020 Noted Resolved Primary insomnia [F51.01] 05/11/2015 More... Weight gain [R63.5] 05/11/2015 More... Tobacco abuse disorder [Z72.0] 05/11/2015 More... Sebaceous cyst [L72.3] 05/25/2015 More... Vitamin D deficiency [E55.9] 04/21/2017 Mixed hyperlipidemia [E78.2] 2018 Encounter for screening for lung cancer [Z12.2] 04/08/2019 Pulmonary emphysema (HCC) [J43.9] 08/30/2019 Prescriptions ordered this encounter Disp Refills Start End ZOLPIDEM ER 6.25 MG TABLET,EXTENDED * 30 t* 2 01/30/2020 02/29/2020 Route: ORAL Sig: Take 1 tablet by mouth at bedtime as needed for up to 30 days. For Sedation Medications Discontinued During This Encounter zolpidem (AMBIEN CR) 6.25 mg CR tabl* 30 t* 2 11/10/2019 01/30/2020 Cmt: This request is for a new prescription for a controlled substance as required by Federal/State law.. Sig: TAKE 1 TABLET BY MOUTH AT BEDTIME NEEDED FOR SEDATION Disc: Reason for discontinue is not on file. Encounter Status:Closed by DAWNA PARRISH on 01/30/20 [facility] Jevon 01-13-2020 [facility] Telephone ([facility]) ADRIANNA BARNEY ([id number]) 1960 F Date Time Provider Department 01/13/20 DAWNA PARRISH [facility] During your visit today, we recorded the following information about you: Nancy Braxton LPN 01/13/2020 12:17 PM Signed Called pt regarding appointment on 02/29/2020 to be rescheduled due to Dr. Chadwick being out of office that day. Left message with office phone number for pt to return call. Nancy Braxton LPN 01/13/2020 12:16 PM Nancy Braxton LPN 02/08/2020 1:29 PM Signed Called patient for the 2nd time regarding appointment on 02/29/2020 to be rescheduled due to being out of office. Left message for the 2nd time. Wrote and sent letter. Nancy Braxton LPN 02/08/2020 1:27 PM Allergies As of Date: 01/13/2020 (No Known Allergies) Date Reviewed: 08/30/2019 Reviewed by: Jenniffer (Segundo) SEGUNDO Buitrago - Fully Assessed Reason for Visit: Appointment [186] Prescriptions as of 01/13/2020 Sig: X ZOLPIDEM ER 6.25 MG TABLET,EX* TAKE 1 TABLET BY MOUTH AT BED* ALBUTEROL SULFATE HFA 90 MCG/* Inhale 2 Puffs as instructed * SIMVASTATIN 20 MG TABLET TAKE 1 TABLET BY MOUTH DAILY * CHOLECALCIFEROL (VITAMIN D3) * 1 po daily COENZYME Q10 100 MG CAPSULE Take 1 capsule by mouth once * Problem List As Of Date 01/13/2020 Noted Resolved Primary insomnia [F51.01] 05/11/2015 More... Weight gain [R63.5] 05/11/2015 More... Tobacco abuse disorder [Z72.0] 05/11/2015 More... Sebaceous cyst [L72.3] 05/25/2015 More... Vitamin D deficiency [E55.9] 04/21/2017 Mixed hyperlipidemia [E78.2] 2018 Encounter for screening for lung cancer [Z12.2] 04/08/2019 Pulmonary emphysema (HCC) [J43.9] 08/30/2019 Letter Text Encounter Status:Closed by NANCY BRAXTON LPN on 01/13/20 [facility] OBSOLETEon 11-10-2019 OBSOLETE Refill ([facility]) ADRIANNA BARNEY ([id number]) 1960 F Date Time Provider Department 11/10/19 DAWNA PARRISH [facility] During your visit today, we recorded the following information about you: Jacklyn Us 11/10/2019 9:54 AM Signed Pharmacy faxed requesting the following refill. Pending Prescriptions Disp Refills ZOLPIDEM ER 6.25 MG TABLET,EXTENDED RELEASE,MULTIPHASE 30 tablet 5 TRENT Class: C-IV EDMUND: No Last refill: 07/25/2019 Patient last appointment: 08/30/2019 Patient next appointment: 02/29/2020 Patient Phone numbers: [phone] (home) Request is for script(s) to be called in to pharmacyescript to pharmacy. Jacklyn Parrish MD 11/10/2019 9:56 AM Signed Already did in another encounter Allergies As of Date: 11/10/2019 (No Known Allergies) Date Reviewed: 08/30/2019 Reviewed by: Jenniffer Bailey) SEGUNDO Buitrago - Fully Assessed Reason for Visit: Refill Request [94] Visit Diagnosis:Primary insomnia [F51.01] Prescriptions as of 11/10/2019 Sig: ZOLPIDEM ER 6.25 MG TABLET,EX* TAKE 1 TABLET BY MOUTH AT BED* ALBUTEROL SULFATE HFA 90 MCG/* Inhale 2 Puffs as instructed * X ZOLPIDEM ER 6.25 MG TABLET,EX* TAKE 1 TABLET BY MOUTH AT BED* SIMVASTATIN 20 MG TABLET TAKE 1 TABLET BY MOUTH DAILY * CHOLECALCIFEROL (VITAMIN D3) * 1 po daily COENZYME Q10 100 MG CAPSULE Take 1 capsule by mouth once * Problem List As Of Date 11/10/2019 Noted Resolved Primary insomnia [F51.01] 05/11/2015 More... Weight gain [R63.5] 05/11/2015 More... Tobacco abuse disorder [Z72.0] 05/11/2015 More... Sebaceous cyst [L72.3] 05/25/2015 More... Vitamin D deficiency [E55.9] 04/21/2017 Mixed hyperlipidemia [E78.2] 2018 Encounter for screening for lung cancer [Z12.2] 04/08/2019 Pulmonary emphysema (HCC) [J43.9] 08/30/2019 Encounter Status:Closed by DAWNA PARRISH on 11/10/19 [facility] OBSOLETE Refill ([facility]) ADRIANNA BARNEY ([id number]) 1960 F Date Time Provider Department 11/10/19 DAWNA PARRISH [facility] During your visit today, we recorded the following information about you: Haley Villasenor Reg 11/10/2019 9:53 AM Signed Pharmacy faxed requesting the following refill. Pending Prescriptions Disp Refills ZOLPIDEM ER 6.25 MG TABLET,EXTENDED RELEASE,MULTIPHASE 30 tablet Sig: TAKE 1 TABLET BY MOUTH AT BEDTIME NEEDED FOR SEDATION TRENT Class: C-IV EDMUND: Yes Last refill: 07/25/2019 Patient last appointment: 08/30/2019 Patient next appointment: 02/29/2020 Patient Phone numbers: [phone] (home) Request is for script(s) to be escript to pharmacyescript to pharmacy. Haley Villasenor Reg Allergies As of Date: 11/10/2019 (No Known Allergies) Date Reviewed: 08/30/2019 Reviewed by: Jenniffer Bailey) SEGUNDO Buitrago - Fully Assessed Reason for Visit: Refill Request [94] Visit Diagnosis:Primary insomnia [F51.01] Order(s):zolpidem (AMBIEN CR) 6.25 mg CR tabletTAKE 1 TABLET BY MOUTH AT BEDTIME NEEDED FOR SEDATIONDisp: 30 tabletRfl: 2 Prescriptions as of 11/10/2019 Sig: ZOLPIDEM ER 6.25 MG TABLET,EX* TAKE 1 TABLET BY MOUTH AT BED* ALBUTEROL SULFATE HFA 90 MCG/* Inhale 2 Puffs as instructed * SIMVASTATIN 20 MG TABLET TAKE 1 TABLET BY MOUTH DAILY * CHOLECALCIFEROL (VITAMIN D3) * 1 po daily COENZYME Q10 100 MG CAPSULE Take 1 capsule by mouth once * Problem List As Of Date 11/10/2019 Noted Resolved Primary insomnia [F51.01] 05/11/2015 More... Weight gain [R63.5] 05/11/2015 More... Tobacco abuse disorder [Z72.0] 05/11/2015 More... Sebaceous cyst [L72.3] 05/25/2015 More... Vitamin D deficiency [E55.9] 04/21/2017 Mixed hyperlipidemia [E78.2] 2018 Encounter for screening for lung cancer [Z12.2] 04/08/2019 Pulmonary emphysema (HCC) [J43.9] 08/30/2019 Prescriptions ordered this encounter Disp Refills Start End ZOLPIDEM ER 6.25 MG TABLET,EXTENDED * 30 t* 2 11/10/2019 12/10/2019 Cmt: This request is for a new prescription for a controlled substance as required by Federal/State law.. Sig: TAKE 1 TABLET BY MOUTH AT BEDTIME NEEDED FOR SEDATION Medications Discontinued During This Encounter zolpidem (AMBIEN CR) 6.25 mg CR tabl* 30 t* 5 07/25/2019 11/10/2019 Class: Call Rx Cmt: This request is for a new prescription for a controlled substance as required by Federal/State law. Sig: TAKE 1 TABLET BY MOUTH AT BEDTIME NEEDED FOR SEDATION FOR UP TO 30 DAYS Disc: Reason for discontinue is not on file. Encounter Status:[facility]) ADRIANNA BARNEY ([id number]) 1960 F Date Time Provider Department 08/30/19 3:20 PM DAWNA PARRISH [facility] During your visit today, we recorded the following information about you: Temperature Pulse Respiration Blood pressure 98 degrees 79/minute 17/minute 130/84 Weight 97.1 kg Dawna Parrish MD 08/31/2019 7:58 AM Signed Adrianna Barney is a 59 year old female here today for a check up on her medical problems. HPI Subjective Concern(s) today include: F/up insomnia Uses Ambien at at bedtime works well she has failed melatonin and trazodone Denies any side effects Her medications were reviewed today and her list is now up to date. She is compliant on taking her medications :Yes She is tolerating her medication(s) without side effects: Yes She is following an appropriate diet for her medical problems: Yes She is getting some exercise in? Yes She is due for immunizations She did go to the lung cancer screening clinic--there was no evidence of lung nodules post go back for 1 year follow-up. There was evidence of hiatal hernia and some emphysema She absolutely denies chest tightness or suppress she's had no COPD or emphysema exacerbations however she does continue to have seated production and a harsh cough declines PFTs Has been cutting down 1 cigarette an hour and now every 2 hours slowly inhalers and emphysema evident Has talked to smoking cessation counselor PDMP website checked and validated. All prescriptions have been APPROPRIATELY filled. No suspicious activity was identified. 08/30/2019 by Dawna Parrish MD ACTIVE PROBLEM LIST Primary Insomnia Weight Gain Tobacco Abuse Disorder Sebaceous Cyst Vitamin D Deficiency Mixed Hyperlipidemia Encounter for Screening for Lung Cancer PAST MEDICAL HISTORY Diagnosis Date - Hyperlipidemia - Insomnia PAST SURGICAL HISTORY Procedure Laterality Date - DELIVERY ONLY x 3 - CHOLECYSTECTOMY HX - REM LESIO TRUNK,ARM,LEG 1.1 -2.0CM Right 06/09/15 Exc. right scapular angle cyst Social History Tobacco Use - Smoking status: Current Every Day Smoker Packs/day: 1.00 Years: 37.00 Pack years: 37.00 Types: Cigarettes - Smokeless tobacco: Never Used - Tobacco comment: about 16 cigs per day Substance Use Topics - Alcohol use: No - Drug use: No ALLERGIES No Known Allergies Family History Problem Relation Age of Onset - Heart Mother - Diabetes Brother Current Outpatient Medications Medication Sig Dispense Refill - zolpidem (AMBIEN CR) 6.25 mg CR tablet TAKE 1 TABLET BY MOUTH AT BEDTIME NEEDED FOR SEDATION FOR UP TO 30 DAYS 30 tablet 5 - simvastatin (ZOCOR) 20 mg tablet TAKE 1 TABLET BY MOUTH DAILY AT BEDTIME. 90 tablet 3 - cholecalciferol, vitamin D3, (VITAMIN D3) 4,000 unit cap 1 po daily 0 - coenzyme Q10 (COENZYME Q-10) 100 mg cap capsule Take 1 capsule by mouth once daily. 90 capsule 1 No current facility-administered medications for this visit. Review of Systems Constitutional: Negative for chills, fever and malaise/fatigue. HENT: Negative for tinnitus. Eyes: Negative for blurred vision, double vision and pain. Respiratory: Negative for cough and shortness of breath. Cardiovascular: Negative for chest pain, palpitations, orthopnea and leg swelling. Gastrointestinal: Negative for abdominal pain, heartburn, nausea and vomiting. Genitourinary: Negative for dysuria, flank pain, frequency, hematuria and urgency. Musculoskeletal: Negative for back pain and myalgias. Neurological: Negative for dizziness and headaches. Psychiatric/Behavioral: Negative for depression, memory loss, substance abuse and suicidal ideas. The patient has insomnia. BP 130/84 Pulse 79 Temp 98 Resp 17 Wt 214 lb (97.1kg) LMP 02/25/2012 Physical Exam Constitutional: She is oriented to person, place, and time and well-developed, well-nourished, and in no distress. No distress. HENT: Head: Normocephalic and atraumatic. Right Ear: External ear normal. Left Ear: External ear normal. Eyes: Pupils are equal, round, and reactive to light. Neck: Normal range of motion. Neck supple. No tracheal deviation present. No thyromegaly present. Cardiovascular: Normal rate, regular rhythm and normal heart sounds. Pulmonary/Chest: Effort normal. No respiratory distress. She has decreased breath sounds. She has no wheezes. She has rhonchi. She has no rales. Abdominal: Soft. Bowel sounds are normal. She exhibits no distension. There is no abdominal tenderness. There is no rebound. Musculoskeletal: Normal range of motion. General: No tenderness or edema. Neurological: She is alert and oriented to person, place, and time. Skin: Skin is warm. No rash noted. She is not diaphoretic. No erythema. Psychiatric: Affect and judgment normal. No visits with results within 30 Day(s) from this visit. Latest known visit with results is: Office Visit on 07/13/2019 Component Date Value Ref Range Status - GASPCR Specimen Source 07/13/2019 Throat Swab Final - Group A Strep PCR Result 07/13/2019 Negative for Group A Streptococcus by PCR. Final Comment: This test was developed and its performance characteristics determined by [facility]'s Jaime Decker [facility] [place] ([facility]). It has not been cleared or approved by the FDA. [facility] is regulated under CLIA as qualified to perform high complexity testing. This test is used for clinical purposes. It should not be regarded as investigational or for research. - Rapid Strep 07/13/2019 neg neg - pos Final - Quality Check 07/13/2019 Yes yes/no Final New medication(s) prescribed today: None. Counseling completed in adopting health behaviors such as avoiding excessive alcohol use, avoid tobacco use, improve nutrition, and engage in physical activities. Copy of written care plan, clinical summary, treatment plan, new medications, goals, and self management requirements were given to patient. ASSESSMENT/PLAN: 1. Need for vaccination - ICD9: V05.9, ICD10: Z23 (primary diagnosis) - ADMIN OF INFLUENZA VACCINE - INFLUENZA VACCINE QUADRIVALENT AGE 3 YRS PLUS + IM 2. Primary insomnia - ICD9: 307.42, ICD10: F51.01 ambien 5 mg doing well and stable - 6-8 hours She still has refills 3. Mixed hpl -- needs labs - order in epic Continue zocor 4. Emphysema -- clinically she denies sob, chest tightness, loss of clinical function discussed inhalers and PFTs in the future. Dawna Parrish MD Referring Provider: DAWNA PARRISH [[id number]] Allergies As of Date: 08/30/2019 (No Known Allergies) Date Reviewed: 08/30/2019 Reviewed by: Jenniffer Bailey) SEGUNDO Buitrago - Fully Assessed Reason for Visit: Sleep Problem [100] Primary Visit Diagnosis:Primary insomnia [F51.01] Other Visit Diagnoses:Need for vaccination [Z23] Tobacco abuse disorder [Z72.0] Mixed hyperlipidemia [E78.2] Pulmonary emphysema, unspecified emphysema type (HCC) [J43.9] Order(s):ZOSTER VACC RECOMBINANT,IM [[id number]] Order #: [id number] ADMIN OF INFLUENZA VACCINE [[id number]] Order #: [id number]: 1 INFLUENZA VACCINE QUADRIVALENT AGE 3 YRS PLUS + IM [[id number]] Order #: [id number] Prescriptions as of 08/30/2019 Sig: ZOLPIDEM ER 6.25 MG TABLET,EX* TAKE 1 TABLET BY MOUTH AT BED* SIMVASTATIN 20 MG TABLET TAKE 1 TABLET BY MOUTH DAILY * CHOLECALCIFEROL (VITAMIN D3) * 1 po daily COENZYME Q10 100 MG CAPSULE Take 1 capsule by mouth once * Problem List As Of Date 08/30/2019 Noted Resolved Primary insomnia [F51.01] 05/11/2015 More... Weight gain [R63.5] 05/11/2015 More... Tobacco abuse disorder [Z72.0] 05/11/2015 More... Sebaceous cyst [L72.3] 05/25/2015 More... Vitamin D deficiency [E55.9] 04/21/2017 Mixed hyperlipidemia [E78.2] 2018 Encounter for screening for lung cancer [Z12.2] 04/08/2019 Pulmonary emphysema (HCC) [J43.9] 08/30/2019 Disposition: Return in about 6 months (around 02/28/2020) for well adult exam . Follow-up and Disposition History Recorded Encounter Status:Closed by DAWNA PARRISH on 08/31/19 [facility] PROGRESSon 08-30-2019 PROGRESS HNO ID: [id number] Author: Dawna Parrish Service: ? Author Type: Physician Type: Progress Notes Filed: 08/31/2019 7:58 AM Note Text: Adrianna Barney is a 59 year old female here today for a check up on her medical problems. HPI Subjective Concern(s) today include: F/up insomnia Uses Ambien at at bedtime works well she has failed melatonin and trazodone Denies any side effects Her medications were reviewed today and her list is now up to date. She is compliant on taking her medications :Yes She is tolerating her medication(s) without side effects: Yes She is following an appropriate diet for her medical problems: Yes She is getting some exercise in? Yes She is due for immunizations She did go to the lung cancer screening clinic--there was no evidence of lung nodules post go back for 1 year follow-up. There was evidence of hiatal hernia and some emphysema She absolutely denies chest tightness or suppress she's had no COPD or emphysema exacerbations however she does continue to have seated production and a harsh cough declines PFTs Has been cutting down 1 cigarette an hour and now every 2 hours slowly inhalers and emphysema evident Has talked to smoking cessation counselor PDMP website checked and validated. All prescriptions have been APPROPRIATELY filled. No suspicious activity was identified. 08/30/2019 by Dawna Parrish MD ACTIVE PROBLEM LIST Primary Insomnia Weight Gain Tobacco Abuse Disorder Sebaceous Cyst Vitamin D Deficiency Mixed Hyperlipidemia Encounter for Screening for Lung Cancer PAST MEDICAL HISTORY Diagnosis Date - Hyperlipidemia - Insomnia PAST SURGICAL HISTORY Procedure Laterality Date - DELIVERY ONLY x 3 - CHOLECYSTECTOMY HX - REM LESIO TRUNK,ARM,LEG 1.1 -2.0CM Right 06/09/15 Exc. right scapular angle cyst Social History Tobacco Use - Smoking status: Current Every Day Smoker Packs/day: 1.00 Years: 37.00 Pack years: 37.00 Types: Cigarettes - Smokeless tobacco: Never Used - Tobacco comment: about 16 cigs per day Substance Use Topics - Alcohol use: No - Drug use: No ALLERGIES No Known Allergies Family History Problem Relation Age of Onset - Heart Mother - Diabetes Brother Current Outpatient Medications Medication Sig Dispense Refill - zolpidem (AMBIEN CR) 6.25 mg CR tablet TAKE 1 TABLET BY MOUTH AT BEDTIME NEEDED FOR SEDATION FOR UP TO 30 DAYS 30 tablet 5 - simvastatin (ZOCOR) 20 mg tablet TAKE 1 TABLET BY MOUTH DAILY AT BEDTIME. 90 tablet 3 - cholecalciferol, vitamin D3, (VITAMIN D3) 4,000 unit cap 1 po daily 0 - coenzyme Q10 (COENZYME Q-10) 100 mg cap capsule Take 1 capsule by mouth once daily. 90 capsule 1 No current facility-administered medications for this visit. Review of Systems Constitutional: Negative for chills, fever and malaise/fatigue. HENT: Negative for tinnitus. Eyes: Negative for blurred vision, double vision and pain. Respiratory: Negative for cough and shortness of breath. Cardiovascular: Negative for chest pain, palpitations, orthopnea and leg swelling. Gastrointestinal: Negative for abdominal pain, heartburn, nausea and vomiting. Genitourinary: Negative for dysuria, flank pain, frequency, hematuria and urgency. Musculoskeletal: Negative for back pain and myalgias. Neurological: Negative for dizziness and headaches. Psychiatric/Behavioral: Negative for depression, memory loss, substance abuse and suicidal ideas. The patient has insomnia. BP 130/84 Pulse 79 Temp 98 Resp 17 Wt 214 lb (97.1kg) LMP 02/25/2012 Physical Exam Constitutional: She is oriented to person, place, and time and well-developed, well-nourished, and in no distress. No distress. HENT: Head: Normocephalic and atraumatic. Right Ear: External ear normal. Left Ear: External ear normal. Eyes: Pupils are equal, round, and reactive to light. Neck: Normal range of motion. Neck supple. No tracheal deviation present. No thyromegaly present. Cardiovascular: Normal rate, regular rhythm and normal heart sounds. Pulmonary/Chest: Effort normal. No respiratory distress. She has decreased breath sounds. She has no wheezes. She has rhonchi. She has no rales. Abdominal: Soft. Bowel sounds are normal. She exhibits no distension. There is no abdominal tenderness. There is no rebound. Musculoskeletal: Normal range of motion. General: No tenderness or edema. Neurological: She is alert and oriented to person, place, and time. Skin: Skin is warm. No rash noted. She is not diaphoretic. No erythema. Psychiatric: Affect and judgment normal. No visits with results within 30 Day(s) from this visit. Latest known visit with results is: Office Visit on 07/13/2019 Component Date Value Ref Range Status - GASPCR Specimen Source 07/13/2019 Throat Swab Final - Group A Strep PCR Result 07/13/2019 Negative for Group A Streptococcus by PCR. Final Comment: This test was developed and its performance characteristics determined by [facility]'s Jaime Decker [facility] [place] ([facility]). It has not been cleared or approved by the FDA. [facility] is regulated under CLIA as qualified to perform high complexity testing. This test is used for clinical purposes. It should not be regarded as investigational or for research. - Rapid Strep 07/13/2019 neg neg - pos Final - Quality Check 07/13/2019 Yes yes/no Final New medication(s) prescribed today: None. Counseling completed in adopting health behaviors such as avoiding excessive alcohol use, avoid tobacco use, improve nutrition, and engage in physical activities. Copy of written care plan, clinical summary, treatment plan, new medications, goals, and self management requirements were given to patient. ASSESSMENT/PLAN: 1. Need for vaccination - ICD9: V05.9, ICD10: Z23 (primary diagnosis) - ADMIN OF INFLUENZA VACCINE - INFLUENZA VACCINE QUADRIVALENT AGE 3 YRS PLUS + IM 2. Primary insomnia - ICD9: 307.42, ICD10: F51.01 ambien 5 mg doing well and stable - 6-8 hours She still has refills 3. Mixed hpl -- needs labs - order in epic Continue zocor 4. Emphysema -- clinically she denies sob, chest tightness, loss of clinical function discussed inhalers and PFTs in the future. Dawna Parrish MD [facility] OBSOLETEon 07-25-2019 OBSOLETE Refill ([facility]) ADRIANNA BARNEY ([id number]) 1960 F Date Time Provider Department 07/25/19 DAWNA PARRISH [facility] During your visit today, we recorded the following information about you: Haley [place] Reg 07/25/2019 8:30 AM Signed Pharmacy faxed requesting the following refill. Pending Prescriptions Disp Refills ZOLPIDEM ER 6.25 MG TABLET,EXTENDED RELEASE,MULTIPHASE 30 tablet Sig: TAKE 1 TABLET BY MOUTH AT BEDTIME NEEDED FOR SEDATION FOR UP TO 30 DAYS TRENT Class: C-IV EDMUND: Yes Last refill: 04/27/2019 Patient last appointment: 04/27/2019 Patient next appointment: 08/30/2019 Patient Phone numbers: [phone] (home) Request is for script(s) to be escript to pharmacy. Haley Villasenor Reg Allergies As of Date: 07/25/2019 (No Known Allergies) Date Reviewed: 07/13/2019 Reviewed by: Stacie Lott Ma - Fully Assessed Reason for Visit: Refill Request [94] Visit Diagnosis:Primary insomnia [F51.01] Order(s):zolpidem (AMBIEN CR) 6.25 mg CR tabletTAKE 1 TABLET BY MOUTH AT BEDTIME NEEDED FOR SEDATION FOR UP TO 30 DAYSDisp: 30 tabletRfl: 5 Prescriptions as of 07/25/2019 Sig: ZOLPIDEM ER 6.25 MG TABLET,EX* TAKE 1 TABLET BY MOUTH AT BED* SIMVASTATIN 20 MG TABLET TAKE 1 TABLET BY MOUTH DAILY * CHOLECALCIFEROL (VITAMIN D3) * 1 po daily COENZYME Q10 100 MG CAPSULE Take 1 capsule by mouth once * Problem List As Of Date 07/25/2019 Noted Resolved Primary insomnia [F51.01] 05/11/2015 More... Weight gain [R63.5] 05/11/2015 More... Tobacco abuse disorder [Z72.0] 05/11/2015 More... Sebaceous cyst [L72.3] 05/25/2015 More... Vitamin D deficiency [E55.9] 04/21/2017 Mixed hyperlipidemia [E78.2] 2018 Encounter for screening for lung cancer [Z12.2] 04/08/2019 Prescriptions ordered this encounter Disp Refills Start End ZOLPIDEM ER 6.25 MG TABLET,EXTENDED * 30 t* 5 07/25/2019 08/24/2019 Class: Call Rx Cmt: This request is for a new prescription for a controlled substance as required by Federal/State law. Sig: TAKE 1 TABLET BY MOUTH AT BEDTIME NEEDED FOR SEDATION FOR UP TO 30 DAYS Medications Discontinued During This Encounter zolpidem (AMBIEN CR) 6.25 mg CR tabl* 30 t* 5 04/27/2019 07/25/2019 Class: Print RX Route: ORAL Sig: Take 1 tablet by mouth at bedtime as needed for Sedation for up to 100 days. Disc: Reason for discontinue is not on file. Encounter Status:Closed by DAWNA PARRISH on 07/25/19 Normal [facility] CT LUNG SCREENING WO IVCONon 05-06-2019 CT LUNG SCREENING WO IVCON * * *Final Report* * * DATE OF EXAM: May 06 2019 3:14PM [facility] CT LUNG [facility]CREENING WO IVCON / PROCEDURE REASON: Encounter for screening for malignant neoplasm of respiratory organs * * * * Physician Interpretation * * * * EXAMINATION: CHEST CT WITHOUT CONTRAST (LOW-DOSE CT LUNG CANCER SCREENING PROTOCOL) CLINICAL HISTORY: Lung cancer LDCT screening ? absence of signs or symptoms of lung cancer Technique: Spiral CT acquisition of the chest from the thoracic inlet to the upper abdomen without contrast. MQ: [id number] Patient characteristics: * Mypz-ok-Hmhyh: 1960; Age at exam: 59 years * Gender: Female * Lung Disease: Asymptomatic (no signs or symptoms of lung disease) * Number of Pack Years: 30 * Current smoker (=0) or Number of Years since Quit: 0 * Ordering provider and NPI: DIOGENES CHAIDEZ [id number] * Interpreting radiologist and NPI: Eloisa [id number] Exam acquisition parameters: * Exam Date: 05/06/2019 3:14 PM * Site: [facility] * * CT System Textile Stylist: FST21 * CT System Model: Dual Source * Tube Current-Time (mA-sec): 209 * Peak Voltage (kV): 100 * Scan Time (sec): 2.54 * Scan Volume (z-length, cm): -28.20 * Pitch: 1.0 * Slice Thickness (mm): 1.5 * CT Dose-Length Product: 48.93 mGy*cm * CT Dose Index: 1.59mGy * CT Dose Reduction Method: Automated exposure control(AEC) and iterative recon COMPARISON: None RESULT: Are nodules present? No Other lung nodule comments: None Other findings: There is a small hiatal hernia. Heart is not enlarged. There is no mediastinal lymphadenopathy. Emphysema: Slight, centrilobular, upper lung zone Coronary Artery Calcifications: Circumflex none; Left Anterior Descending none; Right Coronary none IMPRESSION: LungRADS category: 1 LungRADS modifier: None LungRADS 0 reason: n/a Recommendations: Annual low-dose chest CT. Other actionable findings: Small hiatal hernia. ====== Reference: [employer]. Lung CT Screening Reporting and Data System (Lung-RADS). Available at: http://www.acr.org/Qual ity-Safety/Resources/Ninfa ngRADS Orange Picking Supervisor: RAVI Transcribe Date/Time: May 09 2019 12:43P Dictated by : LEILANI NAZARIO MD This examination was interpreted and the report reviewed and electronically signed by: LEILANI NAZARIO MD on May 09 2019 12:54PM EST Normal [facility] Vital Signs Date Time Vital Sign Value Performing Clinician Facility 02-06-2025 22:00-0400 Diastolic blood pressure 64 mm[Hg] Dr. Deepak Rivers MD Work Phone: 9(595)849-315095 [place] [address] 02-06-2025 22:00-0400 Heart rate 117 /min Dr. Deepak Rivers MD Work Phone: 1(750)460-152995 [place] [address] 02-06-2025 22:00-0400 Respiratory rate 22 /min Dr. Deepak Rivers MD Work Phone: 0(946)996-828795 [place] [address] 02-06-2025 22:00-0400 SaO2% (BldA) [Mass fraction] 94 % Dr. Deepak Rivers MD Work Phone: 3(486)252-782795 [place] [address] 02-06-2025 22:00-0400 Systolic blood pressure 108 mm[Hg] Dr. Deepak Rivers MD Work Phone: 1(180)618-558995 [place] [address] 02-06-2025 21:50-0400 Body temperature 101.2 [degF] Dr. Deepak Rivers MD Work Phone: 9(001)949-201295 [place] [address] 02-06-2025 19:12-0400 Body height 170.[address] Deepak Rivers MD Work Phone: 2(063)269-623995 [place] [address] 02-06-2025 19:12-0400 Body mass index (BMI) [Ratio] 32.8 kg/m2 Dr. Deepak Rivers MD Work Phone: 8(134)235-394095 [place] [address] 02-06-2025 19:12-0400 Body weight 94.[address] Deepak Rivers MD Work Phone: 8(634)207-363695 [place] [address] 11-22-2024 11:15-0400 SaO2% (BldA) [Mass fraction] 96 % Dr. Deepak Rivers MD Work Phone: 1(770)445-729395 [place] [address] 11-22-2024 09:12-0400 Body temperature 97.7 [degF] Dr. Deepak Rivers MD Work Phone: 9(488)884-813595 [place] [address] 11-22-2024 09:12-0400 Diastolic blood pressure 74 mm[Hg] Dr. Deepak Rivers MD Work Phone: 1(659)947-802895 [place] [address] 11-22-2024 09:12-0400 Heart rate 84 /min Dr. Deepak Rivers MD Work Phone: 7(747)201-234795 [place] [address] 11-22-2024 09:12-0400 Respiratory rate 18 /min Dr. Deepak Rivers MD Work Phone: 6(130)951-818995 [place] [address] 11-22-2024 09:12-0400 Systolic blood pressure 148 mm[Hg] Dr. Deepak Rivers MD Work Phone: 0(383)078-683195 [place] [address] 11-21-2024 18:16-0400 Inhaled oxygen flow rate 2 L/min Dr. Deepak Rivers MD Work Phone: 0(174)838-951395 [place] [address] 11-21-2024 16:16-0400 Body height 170.[address] Deepak Rivers MD Work Phone: 1(646)689-957595 [place] [address] 11-21-2024 16:16-0400 Body mass index (BMI) [Ratio] 35.2 kg/m2 Dr. Deepak Rivers MD Work Phone: 3(630)370-511395 [place] [address] 11-21-2024 16:16-0400 Body weight 102.[address] Deepak Rivers MD Work Phone: 8(184)352-953595 [place] [address] 11-03-2024 08:06-0400 Body temperature 98 [degF] Dr. Deepak Rivers MD Work Phone: 9(744)247-132895 [place] [address] 11-03-2024 08:06-0400 Diastolic blood pressure 66 mm[Hg] Dr. Deepak Rivers MD Work Phone: 4(827)497-805395 [place] [address] 11-03-2024 08:06-0400 Heart rate 78 /min Dr. Deepak Rivers MD Work Phone: [facility] 11-03-2024 08:06-0400 Respiratory rate 14 /min Dr. Deepak Rivers MD Work Phone: [facility] 11-03-2024 08:06-0400 SaO2% (BldA) [Mass fraction] 97 % Dr. Deepak Rivers MD Work Phone: 2(477)022-869303 [place] [address] 11-03-2024 08:06-0400 Systolic blood pressure 119 mm[Hg] Dr. Deepak Rivers MD Work Phone: 3(567)629-669803 [place] [address] 11-03-2024 06:00-0400 Body height 170.[address] Deepak Rivers MD Work Phone: 9(852)486-804403 [place] [address] 11-03-2024 06:00-0400 Body mass index (BMI) [Ratio] 35.1 kg/m2 Dr. Deepak Rivers MD Work Phone: 2(374)407-379603 [place] [address] 11-03-2024 06:00-0400 Body weight 101.[address] Deepak Rivers MD Work Phone: [facility] 08-15-2024 12:11-0500 Body mass index (BMI) [Ratio] 35.21 kg/m2 Deepak Rivers MD Work Phone: [facility] 08-15-2024 12:11-0500 Body weight 98.8 kg Deepak Rivers MD Work Phone: [facility] 08-15-2024 12:11-0500 Diastolic blood pressure 88 mm[Hg] Deepak Rivers MD Work Phone: [facility] 08-15-2024 12:11-0500 Heart rate 78 /min Deepak Rivers MD Work Phone: [facility] 08-15-2024 12:11-0500 Respiratory rate 16 /min Deepak Rivers MD Work Phone: [facility] 08-15-2024 12:11-0500 Systolic blood pressure 138 mm[Hg] Deepak Rivers MD Work Phone: [facility] 04-08-2024 11:46-0400 Body mass index (BMI) [Ratio] 36.36 kg/m2 Nuzhat Pratherhof MASON APPRENTICE.SPINAL SURGEON Work Phone: [facility] 04-08-2024 11:46-0400 Body weight 102 kg Nuzhat Pratherhof MASON APPRENTICE.SPINAL SURGEON Work Phone: [facility] 04-08-2024 11:46-0400 Diastolic blood pressure 82 mm[Hg] Nuzhat Pratherhof MASON APPRENTICE.SPINAL SURGEON Work Phone: [facility] 04-08-2024 11:46-0400 Heart rate 100 /min Nuzhat Pratherhof MASON APPRENTICE.SPINAL SURGEON Work Phone: [facility] 04-08-2024 11:46-0400 Respiratory rate 16 /min Nuzhat Pratherhof MASON APPRENTICE.SPINAL SURGEON Work Phone: [facility] 04-08-2024 11:46-0400 SaO2% (BldA) [Mass fraction] 96 % Nuzhat Pratherhof MASON APPRENTICE.SPINAL SURGEON Work Phone: [facility] 04-08-2024 11:46-0400 Systolic blood pressure 140 mm[Hg] Nuzhat Pratherhof MASON APPRENTICE.SPINAL SURGEON Work Phone: [facility] 02-09-2024 11:04-0400 Diastolic blood pressure 110 mm[Hg] Deepak Rivers MD Work Phone: [facility] 02-09-2024 11:04-0400 Systolic blood pressure 168 mm[Hg] Deepak Rivers MD Work Phone: [facility] 02-09-2024 11:03-0400 Body mass index (BMI) [Ratio] 36.05 kg/m2 Deepak Rivers MD Work Phone: [facility] 02-09-2024 11:03-0400 Body weight 101.15 kg Deepak Rivers MD Work Phone: [facility] 02-09-2024 11:03-0400 Heart rate 88 /min Deepak Rivers MD Work Phone: [facility] 02-09-2024 11:03-0400 Respiratory rate 18 /min Deepak Rivers MD Work Phone: [facility] 06-17-2023 15:12-0400 Body temperature 97.59 [degF] Price [facility] MASON APPRENTICE.SPINAL SURGEON Work Phone: [facility] 06-17-2023 15:12-0400 Body weight 99.79 kg Price [facility] MASON APPRENTICE.SPINAL SURGEON Work Phone: [facility] 06-17-2023 15:12-0400 Diastolic blood pressure 88 mm[Hg] Price [facility] MASON APPRENTICE.SPINAL SURGEON Work Phone: [facility] 06-17-2023 15:12-0400 Heart rate 88 /min Price [facility] MASON APPRENTICE.SPINAL SURGEON Work Phone: [facility] 06-17-2023 15:12-0400 Respiratory rate 16 /min Price [facility] MASON APPRENTICE.SPINAL SURGEON Work Phone: [facility] 06-17-2023 15:12-0400 SaO2% (BldA) [Mass fraction] 97 % Price [facility] MASON APPRENTICE.SPINAL SURGEON Work Phone: [facility] 06-17-2023 15:12-0400 Systolic blood pressure 152 mm[Hg] Price [facility] MASON APPRENTICE.SPINAL SURGEON Work Phone: [facility] 04-24-2023 09:45-0400 Body height 167.5 cm Nuzhat Márquezf MASON APPRENTICE.SPINAL SURGEON Work Phone: [facility] 04-24-2023 09:45-0400 Body weight 100.7 kg Nuzhat Márquezf MASON APPRENTICE.SPINAL SURGEON Work Phone: [facility] 04-24-2023 09:45-0400 Diastolic blood pressure 90 mm[Hg] Nuzhat Pratherhof MASON APPRENTICE.SPINAL SURGEON Work Phone: [facility] 04-24-2023 09:45-0400 Heart rate 84 /min Nuzhat Pratherhof MASON APPRENTICE.SPINAL SURGEON Work Phone: [facility] 04-24-2023 09:45-0400 Respiratory rate 16 /min Nuzhat Tannhof MASON APPRENTICE.SPINAL SURGEON Work Phone: [facility] 04-24-2023 09:45-0400 SaO2% (BldA) [Mass fraction] 97 % Nuzhat Tannhof MASON APPRENTICE.SPINAL SURGEON Work Phone: [facility] 04-24-2023 09:45-0400 Systolic blood pressure 160 mm[Hg] Nuzhat Tannhof MASON APPRENTICE.SPINAL SURGEON Work Phone: [facility] 03-13-2023 10:05-0400 Diastolic blood pressure 80 mm[Hg] Nigel Arsen MASON APPRENTICE.SPINAL SURGEON Work Phone: [facility] 03-13-2023 10:05-0400 Heart rate 85 /min Nigel Arsen MASON APPRENTICE.SPINAL SURGEON Work Phone: [facility] 03-13-2023 10:05-0400 Systolic blood pressure 141 mm[Hg] Nigel Arsen MASON APPRENTICE.SPINAL SURGEON Work Phone: [facility] 03-13-2023 09:54-0400 Body weight 100.52 kg Nigel Arsen MASON APPRENTICE.SPINAL SURGEON Work Phone: [facility] 03-13-2023 09:54-0400 Respiratory rate 16 /min Nigel Arsen MASON APPRENTICE.SPINAL SURGEON Work Phone: [facility] 03-13-2023 09:54-0400 SaO2% (BldA) [Mass fraction] 97 % Nigel Arsen MASON APPRENTICE.SPINAL SURGEON Work Phone: [facility] 08-15-2022 09:20-0500 Body weight 97.98 kg Deepak Rivers MD Work Phone: [facility] 08-15-2022 09:20-0500 Diastolic blood pressure 88 mm[Hg] Deepak Rivers MD Work Phone: [facility] 08-15-2022 09:20-0500 Heart rate 82 /min Deepak Rivers MD Work Phone: [facility] 08-15-2022 09:20-0500 Respiratory rate 16 /min Deepak Rivers MD Work Phone: [facility] 08-15-2022 09:20-0500 SaO2% (BldA) [Mass fraction] 96 % Deepak Rivers MD Work Phone: [facility] 08-15-2022 09:20-0500 Systolic blood pressure 138 mm[Hg] Deepak Rivers MD Work Phone: [facility] 04-28-2022 13:35-0400 Body weight 98.88 kg Nuzhat Tannhof MASON APPRENTICE.SPINAL SURGEON Work Phone: [facility] 04-28-2022 13:35-0400 Diastolic blood pressure 84 mm[Hg] Nuzhat Tannhof MASON APPRENTICE.SPINAL SURGEON Work Phone: [facility] 04-28-2022 13:35-0400 Heart rate 85 /min Nuzhat Tannhof MASON APPRENTICE.SPINAL SURGEON Work Phone: [facility] 04-28-2022 13:35-0400 Respiratory rate 16 /min Nuzhat Tannhof MASON APPRENTICE.SPINAL SURGEON Work Phone: [facility] 04-28-2022 13:35-0400 SaO2% (BldA) [Mass fraction] 97 % Nuzhat Tannhof MASON APPRENTICE.SPINAL SURGEON Work Phone: [facility] 04-28-2022 13:35-0400 Systolic blood pressure 138 mm[Hg] Nuzhat Tannhof MASON APPRENTICE.SPINAL SURGEON Work Phone: [facility] 02-13-2022 09:24-0400 Body weight 100.7 kg Deepak Rivers MD Work Phone: [facility] 02-13-2022 09:24-0400 Diastolic blood pressure 78 mm[Hg] Deepak Rivers MD Work Phone: [facility] 02-13-2022 09:24-0400 Heart rate 72 /min Deepak Rivers MD Work Phone: [facility] 02-13-2022 09:24-0400 Respiratory rate 16 /min Deepak Rivers MD Work Phone: [facility] 02-13-2022 09:24-0400 Systolic blood pressure 128 mm[Hg] Deepak Rivers MD Work Phone: [facility] 11-12-2021 09:19-0400 Body weight 101.83 kg Deepak Rivers MD Work Phone: [facility] 11-12-2021 09:19-0400 Diastolic blood pressure 80 mm[Hg] Deepak Rivers MD Work Phone: [facility] 11-12-2021 09:19-0400 Heart rate 60 /min Deepak Rivers MD Work Phone: [facility] 11-12-2021 09:19-0400 Respiratory rate 16 /min Deepak Rivers MD Work Phone: [facility] 11-12-2021 09:19-0400 Systolic blood pressure 125 mm[Hg] Deepak Rivers MD Work Phone: [facility] Encounters Encounter Date Encounter Type Care Provider Facility Start: 02-06-2025 Evaluation and manag ement of inpatient Dr. Aakash Rincon DO -Intensive Care Unit Work Phone: Start: 01-02-2025 End: 01-02-2025 Refill Nigel Viveros APRN.CNP Work Phone: [facility] Comment on above: Refill Request Start: 12-05-2024 End: 12-06-2024 Telephone encounter Deepak Rivers MD Work Phone: [facility] Comment on above: Patient Update Start: 11-24-2024 Encounter for preprocedural cardiovascular examination Lyly Puneet [facility] Start: 11-21-2024 End: 11-22-2024 ambulatory Deepak Rivers Facility:[facility] Start: 11-21-2024 End: 11-22-2024 Evaluation and management of inpatient Dr. Man Flores DO -Medical Surgical 3 Work Phone: Start: 11-21-2024 End: 11-22-[address] Deepak Rivers MD Work Phone: [facility] Work Phone: Start: 11-11-2024 End: 11-11-2024 Refill Nigel Viveros APRN.SPINAL SURGEON Work Phone: [facility] Comment on above: Refill Request Start: 11-10-2024 Encounter for preprocedural laboratory examination Lyly Teixeira [facility] Start: 11-04-2024 End: 11-04-2024 Non-patient / Non-visit Dr. Maurice Cutler MD -[facility] Work Phone: Start: 11-04-2024 End: 11-04-[address] Deepak Rivers MD Work Phone: [facility] Work Phone: Start: 11-04-2024 End: 11-04-2024 Patient encounter procedure Lyly Teixeira PA -Pulmonary Services/Neurology Work Phone: Start: 11-03-2024 End: 11-04-[address] Deepak Rivers MD Work Phone: [facility] Work Phone: Start: 11-03-2024 End: 11-03-2024 Patient encounter procedure Lyly Teixeira PA -Cat Scan, [facility] Work Phone: Start: 11-03-2024 End: 11-03-2024 Emergency department patient visit Dr. Deepak Rivers MD Work Phone: -Emergency Department Work Phone: Start: 11-03-2024 End: 11-03-2024 ambulatory Lyly Teixeira Facility:[facility] Start: 10-08-2024 End: 10-10-2024 Refill Nuzhat Estrada APRN.SPINAL SURGEON Work Phone: [facility] Comment on above: Refill Request Start: 09-06-2024 End: 10-07-2024 ambulatory Deepak Rivers MD Work Phone: [facility] Start: 08-15-2024 End: 08-15-2024 [facility] Start: 08-15-2024 End: 08-15-2024 Patient encounter procedure Deepak Rivers MD Work Phone: [facility] Comment on above: Hypertension, unspec ified type (Primary Dx); Primary insomnia; Tobacco abuse disorder; Mixed hyperlipidemia; Pulmonary emphysema, unspecified emphysema type (HCC); Need for influenza vaccination; Elevated glucose Start: 07-18-2024 End: 07-18-2024 Refill Deepak Rivers MD Work Phone: [facility] Comment on above: Refill Request Start: 05-05-2024 End: 05-06-2024 Telephone encounter Deepak Rivers MD Work Phone: [facility] Comment on above: Letter Request Start: 04-15-2024 End: 04-15-2024 Refill Deepak Rivers MD Work Phone: [facility] Comment on above: Refill Request Start: 04-08-2024 End: 04-08-2024 ambulatory NUZHAT ESTRADA Facility:[facility] Start: 04-08-2024 Encounter for genera l adult medical examination without abnormal findings NUZHAT ESTRADA [facility] Start: 04-08-2024 End: 04-08-2024 Patient encounter procedure Nuzhat Estrada APRN.SPINAL SURGEON Work Phone: [facility] Comment on above: Wellness examination (Primary Dx); Hypertension, unspecified type; Mixed hyperlipidemia; Primary insomnia; Elevated glucose; Tobacco abuse disorder; Screening for colon cancer Start: 04-08-2024 End: 04-08-2024 Patient encounter status Nuzhat Estrada APRN.SPINAL SURGEON Work Phone: [facility] Work Phone: Start: 02-09-2024 End: 02-09-2024 ambulatory DEEPAK RIVERS Facility:[facility] Start: 02-09-2024 End: 02-09-2024 Patient encounter procedure Deepak Rivers MD Work Phone: [facility] [place] Comment on above: Hypertension, unspec ified type (Primary Dx); Primary insomnia; Mixed hyperlipidemia; Elevated glucose; Tobacco abuse disorder Start: 02-08-2024 Refill Deepak jennings MD Work Phone: [facility] Comment on above: Refill Request Start: 02-06-2024 End: 02-06-2024 ambulatory DEEPAK Yousif [facility] Facility:[facility] Start: 11-28-2023 Refill Nigel BOOTH RN.SPINAL SURGEON Work Phone: [facility] Comment on above: Refill Request Start: 11-17-2023 Refill Nigel BOOTH RN.SPINAL SURGEON Work Phone: [facility] Comment on above: Refill Request Start: 11-09-2023 Refill Nigel BOOTH RN.SPINAL SURGEON Work Phone: [facility] Comment on above: Refill Request Start: 10-07-2023 ambulatory Deepak jennings MD Work Phone: Internal Medicine Main [place] Start: 06-17-2023 End: 06-17-2023 Patient encounter procedure Price Rahman APRN.SPINAL SURGEON Work Phone: [facility] Comment on above: Eustachian tube dysf unction, bilateral (Primary Dx) Start: 06-03-2023 Refill Nigel BOOTH RN.SPINAL SURGEON Work Phone: [facility] Comment on above: Refill Request Start: 04-24-2023 End: 04-24-2023 Patient encounter procedure Nuzhat Estrada APRN.SPINAL SURGEON Work Phone: [facility] Comment on above: Wellness examination (Primary Dx); Hypertension, unspecified type; Mixed hyperlipidemia; Primary insomnia; Tobacco abuse disorder; Women's annual routine gynecological examination; Screening for colon cancer Start: 04-24-2023 End: 04-24-2023 Patient encounter status Nuzhat Estrada APRN.SPINAL SURGEON Work Phone: [facility] Work Phone: Start: 03-13-2023 End: 03-13-2023 Office outpatient visit 15 minutes Nigel Viveros APRN.SPINAL SURGEON Work Phone: [facility] [place] Comment on above: Hypertension, unspec ified type (Primary Dx) Start: 02-07-2023 Telephone encounter Shalonda [address] Comment on above: Orders Start: 12-22-2022 Refill Nuzhat Estrada APRN.SPINAL SURGEON Work Phone: [facility] [place] Comment on above: Refill Request Start: 12-21-2022 Refill Nuzhat Estrada APRN.SPINAL SURGEON Work Phone: [facility] [place] Comment on above: Refill Request Start: 10-28-2022 Refill Nigel BOOTH RN.SPINAL SURGEON Work Phone: [facility] [place] Comment on above: Refill Request Start: 10-22-2022 ambulatory Deepak jennings MD Work Phone: Internal Medicine [facility] Start: 08-15-2022 End: 08-15-2022 Patient encounter procedure Deepak Rivers MD Work Phone: [facility] Comment on above: Hypertension, unspec ified type (Primary Dx); Screening for colon cancer; Primary insomnia; Mixed hyperlipidemia; Tobacco abuse disorder Start: 07-07-2022 Refill Deepak jennings MD Work Phone: [facility] Comment on above: Refill Request Start: 04-28-2022 End: 04-28-2022 Patient encounter procedure Nuzhat Estrada APRN.SPINAL SURGEON Work Phone: [facility] [place] Comment on above: Wellness examination (Primary Dx); Pulmonary emphysema, unspecified emphysema type (HCC); Hypertension, unspecified type; Mixed hyperlipidemia; Primary insomnia; Screening for colon cancer; Encounter for immunization Start: 04-28-2022 End: 04-28-2022 Patient encounter status Nuzhat Estrada APRN.SPINAL SURGEON Work Phone: [facility] [place] Start: 04-03-2022 Refill Deepak jennings MD Work Phone: [facility] [place] Comment on above: Refill Request Start: 02-13-2022 End: 02-13-2022 Patient encounter procedure Deepak Rivers MD Work Phone: [facility] Comment on above: Hypertension, unspec ified type (Primary Dx); Primary insomnia; Elevated glucose; Mixed hyperlipidemia; Tobacco abuse disorder Start: 01-28-2022 Refill Deepak jennings MD Work Phone: [facility] Comment on above: Refill Request Start: 11-12-2021 End: 11-12-2021 Patient encounter procedure Deepak Rivers MD Work Phone: [facility] [place] Comment on above: Hypertension, unspec ified type (Primary Dx); Primary insomnia; Screen for colon cancer; Encounter for screening mammogram for malignant neoplasm of breast; Mixed hyperlipidemia; Tobacco abuse disorder; Vitamin D deficiency; Elevated glucose Procedures Date Procedure Procedure Detail Performing Clinician Start: 02-06-2025 Urnls dip stick/tabl et reagent auto microscopy Dr. Deepak Rivers MD Work Phone: Start: 02-06-2025 Plain chest X-ray Dr. Pamella Rivers MD Work Phone: Start: 02-06-[address] Deepak Rivers MD Work Phone: Start: 02-06-2025 Computed tomography of abdomen and pelvis with intravenous contrast Dr. Deepak Rivers MD Work Phone: Start: 11-22-[address] Deepak Rivers MD Work Phone: Start: 11-21-2024 Plain X-ray of shoulder Dr. Deepak Rivers MD Work Phone: Start: 11-21-2024 Fluoroscopic guidance Nica Rivers MD Work Phone: Start: 11-21-2024 Plain X-ray of shoulder Dr. Deepak Rivers MD Work Phone: Start: 11-21-2024 Reverse prosthetic t otal arthroplasty of right shoulder Dr. Deepak Rivers MD Work Phone: Start: 11-15-2024 Methicillin resistan t Staphylococcus aureus screening test Dr. Deepak Rivers MD Work Phone: Start: 11-03-2024 CT of upper limb wit hout contrast Dr. Deepak Rivers MD Work Phone: Start: 11-03-2024 Plain x-ray of humerus Dr. Deepak Rivers MD Work Phone: Start: 11-03-2024 Plain X-ray of shoulder Dr. Deepak Rivers MD Work Phone: Start: 02-09-2024 Adult depression scr eening assessment Nuzhat Estrada MASON APPRENTICE.SPINAL SURGEON Work Phone: Start: 02-06-2024 Lipid 1996 panel - S micah or Plasma Deepak Rivers MD Work Phone: Start: 08-07-2023 Lipid 1996 panel - S micah or Plasma Deepak Rivers MD Work Phone: Start: 02-12-2023 Lipid 1996 panel - S micah or Plasma Nigel Viveros MASON APPRENTICE.SPINAL SURGEON Work Phone: Start: 04-28-2022 INFLUENZA VACCINE QUADRIVALENT 6 MO - 64 YRS IM Nuzhat Estrada MASON APPRENTICE.SPINAL SURGEON Work Phone: Start: 05-14-2021 Adult depression scr eening assessment Deepak Rivers MD Work Phone: Start: 05-25-2015 Mammography Deepak brown MD Work Phone: Plan of Treatment Date Care Activity Detail Author Start: 02-05-2029 Lipid panel Lipid Screening [facility] Start: 08-07-2028 Lipid panel Lipid Screening [facility] Start: 02-13-2028 Lipid 1996 panel - S micah or Plasma Lipid Screening [facility] Start: 02-13-2028 L[address]EN LIPID SCREEN [facility] Start: 02-12-[address] [facility] Start: 08-15-2027 [address] L[address] SCREEN [facility] Start: 02-08-2027 LIPID SCREEN LIPID SCREEN [facility] Start: 02-05-2027 Diabetes Screening Diabetes Screenin g [facility] Start: 11-02-2026 L[address] SCREEN LIPID SCREEN [facility] Start: 08-07-2026 Diabetes Screening Diabetes Screenin g [facility] Start: 02-12-2026 DIABETES SCREEN DIABETES SCREEN [facility] Start: 02-12-2026 Diabetes Screening Diabetes Screenin g [facility] Start: 08-15-2025 Annual PCP Team Terrazzo Finisher Helper doug Disease Visit Annual PCP Team Chronic Disease Visit [facility] Start: 08-15-2025 Covid-19 Vaccine () Covid-19 Vaccine () [facility] Comment on above: Postponed from 04/17 (Declined at this time) Start: 08-15-2025 DIABETES SCREEN DIABETES SCREEN [facility] Start: 04-08-2025 Annual PCP Team Terrazzo Finisher Helper doug Disease Visit Annual PCP Team Chronic Disease Visit [facility] Start: 02-13-2025 End: 05-15-2025 Comprehensive metabolic 2000 panel - Serum or Plasma COMPREHENSIVE METABOLIC PANEL Lab Routine Mixed hyperlipidemia Expected: 02/13/2025 (Approximate), Expires: 05/15/2025 [facility] Comment on above: Expected: 02/13/2025 (Approximate), Expires: 05/15/2025 Start: 02-13-2025 End: 05-15-2025 Hemoglobin A1c in Blood HEMOGLOBIN A1C Lab Routine Elevated glucose Expected: 02/13/2025 (Approximate), Expires: 05/15/2025 [facility] Comment on above: Expected: 02/13/2025 (Approximate), Expires: 05/15/2025 Start: 02-13-2025 End: 05-15-2025 Lipid 1996 panel - Serum or Plasma LIPID PANEL BASIC Lab Routine Mixed hyperlipidemia Expected: 02/13/2025 (Approximate), Expires: 05/15/2025 [facility] Work Phone: Comment on above: Expected: 02/13/2025 (Approximate), Expires: 05/15/2025 Start: 02-09-2025 End: 02-09-2025 Patient encounter procedure 02/09/2025 11:20 AM EDT Office Visit [facility] [address] [place] [address] Deepak Rivers MD [address] [place] [address] 6 month follow up [facility] [place] Comment on above: 6 month follow up Start: 02-08-2025 Annual PCP Team Terrazzo Finisher Helper doug Disease Visit Annual PCP Team Chronic Disease Visit [facility] Start: 02-08-2025 Anxiety Screening Anxiety Screening [facility] Start: 02-08-2025 Covid-19 Vaccine () Covid-19 Vaccine () [facility] Comment on above: Postponed from 04/17 (Declined at this time) Start: 02-08-2025 Depression Screening Depression Scre ening [facility] Start: 02-08-2025 DIABETES SCREEN DIABETES SCREEN [facility] Start: 02-08-2025 RSV Vaccine (1 - 1-d ose 60+ series) RSV Vaccine (1 - 1-dose 60+ series) [facility] Comment on above: Postponed from 04/26 (Declined at this time) Start: 02-08-2025 RSV Vaccine (1 - Ris k 60-74 years 1-dose series) RSV Vaccine (1 - Risk 60-74 years 1-dose series) [facility] Comment on above: Postponed from 04/26 (Declined at this time) Start: 02-07-2025 [facility] Start: 02-06-2025 Clostridioides diffi cile DNA [Presence] in Unspecified specimen by MONIE with probe detection [facility] Start: 02-06-2025 Enteric precautions [facility] Start: 02-06-2025 Lactoferrin [Presenc e] in Stool by Immunoassay [facility] Start: 02-06-2025 Nucleic acid assay [facility] Start: 02-06-2025 [facility] Start: 02-06-2025 Admission procedure [facility] Start: 02-06-2025 Hospital admission, emergency, from emergency room, medical nature [facility] Start: 02-06-2025 End: 02-06-2025 [facility] Start: 02-06-2025 Bacteria identified in Blood by Culture Blood Culture [facility] Start: 06-23-2025 Bacteria identified in Urine by Culture Urine Culture [facility] Start: 11-22-2024 Patient discharge [facility] Start: 11-21-2024 End: 11-22-2024 [facility] Start: 11-21-2024 Oxygen therapy [facility] Start: 11-21-2024 Application of intermittent pneumatic compression device [facility] Start: 11-21-2024 Following clinical pathway protocol [facility] Start: 11-21-2024 Admission procedure [facility] Start: 11-21-2024 Ambulation therapy management [facility] Start: 11-21-2024 Application of device [facility] Start: 11-21-2024 Assessment of risk o f venous thromboembolism [facility] Start: 11-21-2024 Catheterization of vein [facility] Start: 11-21-2024 Following clinical pathway protocol [facility] Start: 11-21-2024 Incentive spirometry [facility] Start: 11-21-2024 Introduction of urin kristine catheter [facility] Start: 11-21-2024 Measuring intake and output [facility] Start: 11-21-2024 Neurovascular assessment [facility] Start: 11-21-2024 Patient education [facility] Start: 11-21-2024 Procedure discontinued [facility] Start: 11-21-2024 Provision of activit y privileges [facility] Start: 11-21-2024 Referral to occupati onal therapist [facility] Start: 11-21-2024 Vital signs measurements [facility] Start: 11-21-2024 Wound care [facility] Start: 11-21-2024 Anes arthroscopic to margareth shoulder replacement ANESTH SHOULDER REPLACEMENT [facility] Start: 11-21-2024 Arthroplasty glenohu meral joint total shoulder RECONSTRUCT SHOULDER JOINT [facility] Start: 11-03-2024 [facility] Start: 11-02-2024 DIABETES SCREEN DIABETES SCREEN [facility] Start: 08-15-2024 End: 08-15-2024 Patient encounter procedure 08/15/2024 12:00 PM EST Office Visit [facility] [place] [address] [place] [address] Deepak Rivers MD [address] [place] [address] 6 mo f/u [facility] [place] Comment on above: 6 mo f/u Start: 08-10-2024 End: 11-09-2024 Comprehensive metabolic 2000 panel - Serum or Plasma COMPREHENSIVE METABOLIC PANEL Lab Routine Hypertension, unspecified type Mixed hyperlipidemia Elevated glucose Expected: 08/10/2024 (Approximate), Expires: 11/09/2024 [facility] Work Phone: Comment on above: Expected: 08/10/2024 (Approximate), Expires: 11/09/2024 Start: 08-10-2024 End: 11-09-2024 Hemoglobin A1c in Blood HEMOGLOBIN A1C Lab Routine Elevated glucose Expected: 08/10/2024 (Approximate), Expires: 11/09/2024 [facility] Comment on above: Expected: 08/10/2024 (Approximate), Expires: 11/09/2024 Start: 08-10-2024 End: 11-09-2024 Lipid 1996 panel - Serum or Plasma LIPID PANEL BASIC Lab Routine Hypertension, unspecified type Mixed hyperlipidemia Elevated glucose Expected: 08/10/2024 (Approximate), Expires: 11/09/2024 [facility] Comment on above: Expected: 08/10/2024 (Approximate), Expires: 11/09/2024 Start: 08-07-2024 Annual PCP Team Terrazzo Finisher Helper doug Disease Visit Annual PCP Team Chronic Disease Visit [facility] Start: 08-07-2024 HIV screening HIV Screening [facility] Comment on above: Postponed from 04/26 (Declined at this time) Start: 08-07-2024 Screening for malign ant neoplasm of cervix [facility] Comment on above: Postponed from 07/23 (Declined at this time) Postponed from 07/23 (Declined at this time) Start: 04-24-2024 ANNUAL PCP TEAM FRAME RUNNER DOUG DISEASE VISIT ANNUAL PCP TEAM CHRONIC DISEASE VISIT [facility] Start: 04-17-2024 Covid-19 Vaccine ( season) Covid-19 Vaccine () [facility] Start: 04-17-2024 Covid-19 Vaccine () Covid-19 Vaccine ( season) [facility] Start: 04-17-2024 Influenza vaccination Influenza Vacc ine (#1) [facility] Start: 04-08-2024 End: 04-08-2024 Patient encounter procedure 04/08/2024 11:00 AM EDT Office Visit Family [facility] [address] [place], [place] [id number] Nuzhat Estrada APRN.SPINAL SURGEON [address] [place], [place] [id number] Wellness [facility] Comment on above: Wellness Start: 03-13-2024 ANNUAL PCP TEAM FRAME RUNNER DOUG DISEASE VISIT ANNUAL PCP TEAM CHRONIC DISEASE VISIT [facility] Start: 02-13-2024 COLORECTAL CANCER SCREENING COLORECTAL CANCER SCREENING [facility] Comment on above: Postponed from 04/26 (Declined at this time) Start: 02-13-2024 COVID-19 VACCINE (#1) COVID-19 VACCI NE (#1) [facility] Comment on above: Postponed from 10/24 (Declined at this time) Start: 02-13-2024 Screening for malign ant neoplasm of colon Colorectal Cancer Screening [facility] Comment on above: Postponed from 04/26 (Declined at this time) Start: 02-09-2024 End: 02-09-2024 Patient encounter procedure 02/09/2024 11:00 AM EDT Office Visit [facility] [address] [place], [place] [address] Deepak Rivers MD [address] [place] [address] 6 month follow up [facility] Comment on above: 6 month follow up Start: 08-17-2023 Behavioral Health Screening Behavioral Health Screening [facility] Start: 08-17-2023 Depression Assessment Depression Ass essment [facility] Start: 08-15-2023 ANNUAL PCP TEAM FRAME RUNNER DOUG DISEASE VISIT ANNUAL PCP TEAM CHRONIC DISEASE VISIT [facility] Start: 04-28-2023 ANNUAL PCP TEAM FRAME RUNNER DOUG DISEASE VISIT ANNUAL PCP TEAM CHRONIC DISEASE VISIT [facility] Start: 04-28-2023 HIV SCREENING HIV SCREENING [facility] Comment on above: Postponed from 04/26 (Declined at this time) Start: 04-28-2023 Influenza vaccination LUNG CANCER SC REENING [facility] Comment on above: Postponed from 05/06 (Declined at this time) Start: 04-28-[address] [facility] Comment on above: Postponed from 04/26 (Declined at this time) Start: 04-17-2023 Covid-19 Vaccine () Covid-19 Vaccine () [facility] Start: 04-17-2023 Influenza vaccination [facility] Start: 02-13-2023 ANNUAL PCP TEAM FRAME RUNNER DOUG DISEASE VISIT ANNUAL PCP TEAM CHRONIC DISEASE VISIT [facility] Start: 02-13-2023 BP CONTROLLED (<130/80) BP CONTROLLE D (<130/80) [facility] Start: 02-09-2023 End: 04-11-2023 Comprehensive metabolic 2000 panel - Serum or Plasma COMP METABOLIC PANEL Lab Routine Mixed hyperlipidemia Hypertension, unspecified type Expected: 02/09/2023, Expires: 04/11/2023 [facility] Work Phone: Comment on above: Expected: 02/09/2023 , Expires: 04/11/2023 Start: 02-09-2023 End: 04-11-2023 Hemoglobin A1c in Blood HGB A1C Lab Routine Elevated glucose Expected: 02/09/2023, Expires: 04/11/2023 [facility] Work Phone: Comment on above: Expected: 02/09/2023 , Expires: 04/11/2023 Start: 02-09-2023 End: 04-11-2023 Lipid 1996 panel - Serum or Plasma LIPID PANEL BASIC Lab Routine Mixed hyperlipidemia Expected: 02/09/2023, Expires: 04/11/2023 [facility] Work Phone: Comment on above: Expected: 02/09/2023 , Expires: 04/11/2023 Start: 11-12-2022 ANNUAL PCP TEAM FRAME RUNNER DOUG DISEASE VISIT ANNUAL PCP TEAM CHRONIC DISEASE VISIT [facility] Start: 08-17-2022 DEPRESSION ASSESSMENT DEPRESSION ASS ESSMENT [facility] Start: 08-15-2022 End: 10-15-2022 Comprehensive metabolic 2000 panel - Serum or Plasma COMP METABOLIC PANEL Lab Routine Hypertension, unspecified type Mixed hyperlipidemia Elevated glucose Expected: 08/15/2022 (Approximate), Expires: 10/15/2022 [facility] Work Phone: Comment on above: Expected: 08/15/2022 (Approximate), Expires: 10/15/2022 Start: 08-15-2022 End: 10-15-2022 Hemoglobin A1c in Blood HGB A1C Lab Routine Elevated glucose Expected: 08/15/2022 (Approximate), Expires: 10/15/2022 [facility] Work Phone: Comment on above: Expected: 08/15/2022 (Approximate), Expires: 10/15/2022 Start: 08-15-2022 End: 10-15-2022 Lipid 1996 panel - Serum or Plasma LIPID PANEL BASIC Lab Routine Hypertension, unspecified type Mixed hyperlipidemia Elevated glucose Expected: 08/15/2022 (Approximate), Expires: 10/15/2022 [facility] Work Phone: Comment on above: Expected: 08/15/2022 (Approximate), Expires: 10/15/2022 Start: 07-23-2022 HPV TEST[address] HPV TESTING [facility] Start: 07-23-2022 PAP TEST[address] PAP TESTING [facility] Start: 05-14-2022 Adult depression screening assessment DEPRESSION SCREENING [facility] Start: 05-14-2022 COVID-19 VACCINE (#1) COVID-19 VACCI NE (#1) [facility] Comment on above: Postponed from 04/26 (Declined at this time) Postponed from 10/24 (Declined at this time) Start: 05-14-2022 COVID-19 VACCINE (1) COVID-19 VACCIN E (1) [facility] Comment on above: Postponed from 04/26 (Declined at this time) Start: 04-17-2022 Influenza vaccination INFLUENZA (#1) [facility] Start: 02-11-2022 End: 04-13-2022 Comprehensive metabolic 2000 panel - Serum or Plasma COMP METABOLIC PANEL Lab Routine Mixed hyperlipidemia Elevated glucose Hypertension, unspecified type Expected: 02/11/2022 (Approximate), Expires: 04/13/2022 [facility] Work Phone: Comment on above: Expected: 02/11/2022 (Approximate), Expires: 04/13/2022 Start: 02-11-2022 End: 04-13-2022 Hemoglobin A1c/Hemoglobin.total in Blood HGB A1C Lab Routine Elevated glucose Expected: 02/11/2022 (Approximate), Expires: 04/13/2022 [facility] Work Phone: Comment on above: Expected: 02/11/2022 (Approximate), Expires: 04/13/2022 Start: 02-11-2022 End: 04-13-2022 LIPID PANEL BASIC LIPID PANEL BASIC Lab Routine Mixed hyperlipidemia Elevated glucose Hypertension, unspecified type Expected: 02/11/2022 (Approximate), Expires: 04/13/2022 [facility] Work Phone: Comment on above: Expected: 02/11/2022 (Approximate), Expires: 04/13/2022 Start: 02-11-2022 End: 04-13-2022 VITAMIN D 25 HYDROXY VITAMIN D 25 HYDROXY Lab Routine Vitamin D deficiency Expected: 02/11/2022 (Approximate), Expires: 04/13/2022 [facility] Work Phone: Comment on above: Expected: 02/11/2022 (Approximate), Expires: 04/13/2022 Start: 11-13-2021 End: 01-13-2022 Hemoglobin.gastrointestin al.lower [Presence] in Stool by Immunoassay FECAL OCCULT BLOOD TEST Lab Routine Screen for colon cancer Expected: 11/13/2021, Expires: 01/13/2022 [facility] Work Phone: Comment on above: Expected: 11/13/2021 , Expires: 01/13/2022 Start: 08-17-2021 DEPRESSION ASSESSMENT DEPRESSION ASS ESSMENT [facility] Start: 2021 RSV Vaccine (1 - 1-d ose 60+ series) RSV Vaccine (1 - 1-dose 60+ series) [facility] Start: 07-23-2020 Screening for malign ant neoplasm of cervix Cervical Cancer Screening [facility] Start: 05-06-2020 Influenza vaccination LUNG CANCER SC REENING [facility] Start: 05-06-2020 Screening for malign ant neoplasm of lung Lung Cancer Screening [facility] Start: 02-23-2020 COLORECTAL CANCER SCREENING COLORECTAL CANCER SCREENING [facility] Start: 02-23-2020 FECAL OCCULT BLOOD FECAL OCCULT BLOO D [facility] Start: 02-23-2020 Screening for malign ant neoplasm of colon [facility] Start: 06-22-2016 PNEUMOCOCCAL (2 - PCV) PNEUMOCOCCAL (2 - PCV) [facility] Start: 06-22-2016 Pneumococcal vaccination Pneum ococcal Vaccine (2 - PCV) [facility] Start: 05-25-[address] [facility] Start: 05-25-2016 Screening for malign ant neoplasm of breast Mammogram Screening [facility] Start: 2006 COLOGUARD (FIT-DNA) COLOGUARD (FIT-D NA) [facility] Start: [address] [facility] Start: [address] COLONOGRAPHY [facility] Start: 2006 Screening for malign ant neoplasm of colon [facility] Start: 2006 SIGMOIDOSCOPY SIGMOIDOSCOPY [facility] Start: 1991 Zoledronic acid therapy ALPHA- 1 ANTITRYPSIN DEFICIENCY SCREENING [facility] Start: 1979 BP CONTROLLED (<130/80) BP CONTROLLE D (<130/80) [facility] Start: 1979 HIV SCREENING HIV SCREENING [facility] Start: 1979 HIV screening HIV Screening [facility] Start: [address] [facility] Start: 1960 COVID-19 VACCINE (#1) COVID-19 VACCI NE (#1) [facility] COLOGUARD COLOGUARD Lab Ro utine Screening for colon cancer Ordered: 04/24/2023 [facility] Work Phone: Comment on above: Ordered: 04/24/2023 COLOGUARD COLOGUARD Lab Ro utine Screening for colon cancer Ordered: 04/08/2024 [facility] Work Phone: Comment on above: Ordered: 04/08/2024 End: 10-06-2025 DBT Breast - bilateral screening FRANCIA SCREENING W BENY Radiology Routine Encounter for screening mammogram for breast cancer 1 Occurrences starting 09/06/2024 until 10/06/2025 [facility] Work Phone: Comment on above: 1 Occurrences starti ng 09/06/2024 until 10/06/2025 Hemoglobin.gastroint estin al.lower [Presence] in Stool by Immunoassay FECAL OCCULT BLOOD TEST Lab Routine Screening for colon cancer Ordered: 04/28/2022 [facility] Work Phone: Comment on above: Ordered: 04/28/2022 Hemoglobin.gastroint estin al.lower [Presence] in Stool by Immunoassay FECAL OCCULT BLOOD TEST Lab Routine Screening for colon cancer Ordered: 08/15/2022 [facility] Work Phone: Comment on above: Ordered: 08/15/2022 Lactic acid measurement [facility] End: 11-21-2023 FRANCIA SCREENING FRANCIA SCREENING Radiology Routine Encounter for screening mammogram for breast cancer 1 Occurrences starting 10/22/2022 until 11/21/2023 [facility] Work Phone: Comment on above: 1 Occurrences starti ng 10/22/2022 until 11/21/2023 End: 11-05-2024 MG Breast Screening FRANCIA SCREENING Radiology Routine Encounter for screening mammogram for breast cancer 1 Occurrences starting 10/07/2023 until 11/05/2024 [facility] Work Phone: Comment on above: 1 Occurrences starti ng 10/07/2023 until 11/05/2024 Ova OR parasites identification [facility] Patient Education ED Fracture, U pper Extremity ED Fracture, Shoulder [facility] Work Phone: Patient referral [facility] Work Phone: End: 12-12-2022 Screening mammography bi 2-view breast inc cad FRANCIA SCREENING Radiology Routine Encounter for screening mammogram for malignant neoplasm of breast 1 Occurrences starting 11/12/2021 until 12/12/2022 [facility] Work Phone: Comment on above: 1 Occurrences starti ng 11/12/2021 until 12/12/2022 Urine culture [facility] Immunizations Immunization Date Immunization Notes Care Provider Kristie lockett 08-15-2024 influenza, seasonal, injectable Deepak Rivers MD Work Phone: [facility] 08-07-2023 influenza, injectabl e, quadrivalent, contains preservative Deepak Rivers MD Work Phone: [facility] 08-07-2023 pneumococcal conjuga te (PCV20) vaccine, 20 valent (PREVNAR 20) Deepak Rivers MD Work Phone: [facility] 08-07-2023 influenza virus vacc ine, unspecified formulation Nuzhat Estrada MASON APPRENTICE.SPINAL SURGEON Work Phone: [facility] 04-28-2022 influenza, injectabl e, quadrivalent, contains preservative Nuzhat Estrada MASON APPRENTICE.SPINAL SURGEON Work Phone: [facility] 04-28-2022 influenza virus vacc ine, unspecified formulation Nigel Viveros MASON APPRENTICE.SPINAL SURGEON Work Phone: [facility] 05-14-2021 influenza, injectabl e, quadrivalent, contains preservative Deepak Rivers MD Work Phone: [facility] 07-27-2020 influenza, injectabl e, quadrivalent, contains preservative Deepak Rivers MD Work Phone: [facility] 08-30-2019 influenza, injectabl e, quadrivalent, contains preservative Deepak Rivers MD Work Phone: [facility] 08-30-2019 zoster vaccine recombinant Deepak Rivers MD Work Phone: [facility] 04-27-2019 zoster vaccine recombinant Deepak Rivers MD Work Phone: [facility] 08-24-2018 influenza, injectabl e, quadrivalent, contains preservative Deepak Rivers MD Work Phone: [facility] 02-11-2018 tetanus toxoid, redu vesta diphtheria toxoid, and acellular pertussis vaccine, adsorbed Deepak Rivers MD Work Phone: [facility] 07-17-2017 influenza, injectabl e, quadrivalent, contains preservative Deepak Rivers MD Work Phone: [facility] 06-22-2015 pneumococcal polysaccharide vaccine, 23 valent Deepak Rivers MD Work Phone: [facility] Work Phone: Payers Date Payer Category Payer Self-pay 2016 [employer] BLUE CARD PPO OOS [id number] 2016 Unknown [employer]M BLUE CARD PPO OOS [id number] 2016-Present [phone] [address] [place] [id number] PPO [id number] 2016 Unknown [employer]M BLUE CARD PPO OOS [id number] 2016-Present [phone] [address] [place] [address] PPO [id number] 2016 Unknown [id number] Unknown [facility] [id number] Unknown [id number] Unknown [id number] Unknown [id number] Unknown [id number] Unknown [id number] Unknown [id number] Social History Date Type Detail Facility Start: 02-17-2014 End: 02-06-2025 Tobacco smoking status NHIS Smokes tobacco daily [facility] Work Phone: History of tobacco use Cigarette Smoker [facility] Work Phone: Start: 02-17-2014 End: 02-12-2023 Cigarettes smoked current (pack per day) - Reported 1 [facility] Start: 02-17-2014 End: 04-08-2024 Tobacco use and exposure Smokeless tobacco non-user [facility] Work Phone: Start: 11-12-2021 End: 08-15-2024 Alcohol intake Current non-drinker of alcohol (finding) [facility] Start: 07-27-2020 History SDOH Social Connections Phone 5 [facility] Start: 07-27-2020 History SDOH Social Connections Get Together 2 [facility] Start: 07-27-2020 History SDOH Social Connections [facility] [address] [facility] Start: 07-27-2020 History SDOH Social Connections Living [address] [facility] Start: 07-27-[address] [facility] Start: 08-30-2019 End: 04-28-2022 Tobacco Comment about [address] [facility] Start: 1960 Sex Assigned At Female C [facility] Start: 11-02-2021 End: 04-28-2022 Exposure to SARS-CoV-2 (event) Not sure [facility] Start: 07-27-2020 End: 02-12-2023 Social connection and isolation panel [facility] Do you belong to any clubs or organizations such as scientologist groups, unions, fraternal or athletic groups, or school groups? No [facility] Are you now , , , , never or living with a partner? [facility] How often to you hav e a drink containing alcohol? Patient refused [facility] Do you feel stress - tense, restless, nervous, or anxious, or unable to sleep at night because your mind is troubled all the time - these days [OSQ] Very much [facility] (I/We) worried wheth er (my/our) food would run out before (I/we) got money to buy more. Never true [facility] Start: 04-24-2020 Gender identity Identifies as female gender (finding) [facility] Start: 11-03-2024 End: 11-22-2024 Sex Female (finding) [facility] NEGATED: Highlighted row Not [facility] Medical Equipment Procedure Code Equipment Code Equipment Origin al Text Equipment Identifier Dates FIBERTAPE FDA Start: 11-21-2024 Reverse shoulder prosthesis base plate [id number] FDA Start: 11-21-2024 Coated shoulder humeral stem prosthesis ()[id number] FDA Start: 11-21-2024 FIBERTAPE FDA Start: 11-21-2024 FIBERTAPE FDA Start: 11-21-2024 FIBERTAPE FDA Start: 11-21-2024 FIBERTAPE FDA Start: 11-21-2024 screw FDA Start: 11-21-2024 Polyethylene rev erse shoulder prosthesis cup ()[id number] FDA Start: 11-21-2024 Reverse shoulder prosthesis head ()[id number] FDA Start: 11-21-2024 Orthopaedic bone screw, non-bioabsorbable, sterile ()[id number] FDA Start: 11-21-2024 Goals Date Patient Goal Desired Activity /State Functional Status Date Assessment Result Facility 11-22-2024 Functional status Ambulates;Chair [facility] Work Phone: 02-17-2014 Are you deaf, or do you have serious difficulty hearing No 02/17/2014 12:16 PM EDT Merline Herrera RN No [facility] Work Phone: 02-17-2014 Are you blind, or do you have serious difficulty seeing, even when wearing glasses No 02/17/2014 12:16 PM EDT Merline Herrera RN No [facility] 02-17-2014 Do you have serious difficulty walking or climbing stairs No 02/17/2014 12:16 PM EDMerline Mario RN No [facility] 02-17-2014 Do you have difficul ty dressing or bathing No 02/17/2014 12:16 PM EDMerline Mario RN No [facility] 02-17-2014 Because of a physica l, mental, or emotional condition, do you have difficulty doing errands alone such as visiting a physician's office or shopping No 02/17/2014 12:16 PM EDMerline Mario RN No [facility] Mental Status Date Assessment Result Facility 11-22-2024 Cognitive function Level Of Cons ciousness Awake;Alert;Appropriate;Fol lows Commands [facility] Work Phone: 11-22-2024 Cognitive function Voice/Name [facility] Work Phone: 02-17-2014 Because of a physica l, mental, or emotional condition, do you have serious difficulty concentrating, remembering, or making decisions No 02/17/2014 12:16 PM EDT Merline Herrera RN No [facility] Clinical Notes 11-12-2021 to 02-06-2025 Note Date & Type Note Facility 02-06-2025 Discharge summary [facility] 02-06-2025 Radiology Diagnostic study note [facility] Imaging Services [address] [place] [address] Abdomen/Pelvis W IV Cont ONLY MR#: [id number] Acct: [id number] Name: ADRIANNA BARNEY Rep #: [id number] : 1960 F 64 From: Bettie Hodge MD PCP: Dr. Deepak Rivers MD Status: RE G ER Study:Abdomen/Pelvis W IV Cont ONLY Date of E xam: 02/06/25 Exam# [id number] Ordering Dr: Seb Enrandez MD PROCEDURE: ABDOMEN/PELVIS W IV CONT ONLY 02/06/2025 REASON FOR EXAM: NAUSEA AND VOMITING TECHNIQUE: ABDOMEN/PELVIS W IV CONT ONLY Coronal and Sagittal reconstruction series were provided. CONTRAST: 97 mL Isovue 370 One or more dose reduction techniques were used (e.g., Automated exposure control, adjustment of the mA and/or kV according to patient size, use of iterative reconstruction technique. RADIATION DOSE SUMMARY: CTDlvol: 17.3 mGy DLP: 908 mGycm COMPARISON: None FINDINGS: Lung bases: Linear atelectasis or scarring at the left lung base. There is atelectasis or a tiny pleural effusion in the left posterior lung base. Coronary calcification partially imaged. Liver: Unremarkable Gallbladder: Surgically absent. Spleen: Normal size. Pancreas: Normal size without evidence of mass surrounding inflammation or ductal dilation. Adrenals: Thickening of the left adrenal gland without discrete nodularity. Kidneys: There is patchy hypodensity throughout the left kidney, with a stone atthe left renal pelvis measuring 8 mm. There is stranding surrounding the left kidney and proximal ureter. Simple cyst at the lower pole of the left kidney. Nonobstructing stone in the right kidney measuring 2 mm. Bladder: Unremarkable Reproductive Organs: Unremarkable Bowel: Hiatal hernia. No obstruction or inflammation. There is colonic diverticulosis without evidence of acute diverticulitis. Appendix: The appendix is not identified. There is no inflammatory process identified in the right lower quadrant to suggest appendicitis. Lymph nodes: Prominent retroperitoneal lymph nodes are likely reactive. Vasculature: Moderate diffuse atherosclerotic calcifications are noted. Bones: Degenerative changes of the spine. Soft tissues: Small fat containing umbilical hernia. CT/Abdomen/Pelvis W IV Cont ONLY IMPRESSION: 1. Acute pyelonephritis of the left kidney, with a stone at the left renal pelvis measuring 8 mm. Consider Urology consultation. 2. Additional findings to include hiatal hernia, colonic diverticulosis, and left lung base atelectasis versus tiny pleural effusion. Reading Location: [id number] CC: Dr. Seb Ernandez MD; Dr. Deepak Rivers MD ~ Orange Picking Supervisor: Signed [facility] 02-06-2025 Radiology Diagnostic study note [facility] Imaging Services [address] [place] [address] Chest 1 View (Portable) MR#: [id number] Acct: [id number] Name: ADRIANNA BARNEY Rep #: [id number] : 1960 F 64 From: Bettie Hodge MD PCP: Dr. Deepak Rivers MD Status: RE G ER Study:Chest 1 View (Portable) Date of Exam: 02/06/25 Exam# [id number] Ordering Dr: Seb Ernandez MD PROCEDURE: CHEST 1 VIEW (PORTABLE) 02/06/2025 REASON FOR EXAM: FEVER TECHNIQUE: Frontal view of the chest. COMPARISON: None FINDINGS: Hardware: Right shoulder arthroplasty Heart: The heart size is normal. Aortic atherosclerosis. Lungs: No focal consolidation or pleural effusion. Bones: Degenerative changes are identified within the thoracic spine. RAD/Chest 1 View (Portable) IMPRESSION: No acute cardiopulmonary abnormality. Reading Location: CAROLE CC: Dr. Seb Ernandez MD; Dr. Deepak Rivers MD ~ [employer] Picking Supervisor: Signed [facility] 02-06-2025 Discharge summary Note Date/Time February 06, 2025 10:04pm [facility] Medical Records Department [address] [place] [address] Emergency Department Summary 02/06/25 MR#: [id number] Acct: [id number] Name: ADRIANNA BARNEY Rep #:[id number] : 1960 64 From: Seb Ernandez MD PCP: Dr. Deepak Rivers MD Status:RE G ER Location: ED HPI History of Present Illness Chief Complaint: Nausea/Vomiting Narrative Narrative: 64-year-old female past medical history of hypertension, presents with her because of nausea, vomiting, diarrhea and fever that she has had since Thursday, 3 days ago. She states she feels very tired and weak. She had subjective fever since Thursday, took Tylenol with relief of her symptoms. A few days ago she has developed nausea vomiting and diarrhea. She denies any hematemesis or blood in her stool. No real abdominal pain. She states the fever came back today. She denies any dysuria or hematuria, no exacerbating or alleviating factors. She states she feels very weak and tired. PFSH PFSH Medical History Proximal humerus fracture Wears glasses High cholesterol Gastric reflux Smoker Chronic cough Hypertension Home Medications ?Medication ?Instructions ?Recorded ?Last Taken ?Type ondansetron 4 mg disintegrating 4 mg PO TID PRN nausea and 11/03/24 Unknown Rx tablet vomiting #21 tabs cholecalciferol (vitamin D3) 25 25 mcg PO DAILY 11/20/24 History mcg (1,000 unit) capsule (Vitamin D3) coenzyme Q10 100 mg capsule (Co 100 mg PO DAILY 11/20/24 History Q-10) hydrochlorothiazide 25 mg tablet 25 mg PO DAILY 11/20/24 History losartan 100 mg tablet 100 mg PO DAILY 11/14/2402/08 History simvastatin 20 mg tablet 20 mg PO QHS 11/14/24 History zolpidem 12.5 mg tablet,extended 12.5 mg PO QHS PRN WA N insomnia 11/14/24 11/20/24 History release,multiphase albuterol sulfate 90 mcg/actuation 2 puff inhalation Q 4H PRN PRN 02/06/25 Unknown History aerosol inhaler wheezing Allergy/AdvReac Type Severity Reaction Status Date / Time No Known Allergies Allergy Verified 02/06/25 19:12 Surgical History History of History of cholecystectomy Social History Smoking Status: Current every day smoker tobacco type: cigarettes ROS ROS ED ROS Narrative Review of systems positive for fever, subjective. Positive nausea and vomiting,positive diarrhea. No cough or shortness of breath, no dysuria or hematuria. No abdominal pain. Positive malaise and fatigue and generalized weakness. EXAM Physical Exam Narrative Exam Narrative: Afebrile. Vital signs noted. Nontoxic-appearing. Cardiovascular examination reveals mild tachycardia. Lungs are clear to auscultation bilaterally. Abdomenis soft and nontender without guarding or rebound. Positive bowel sounds. Neurological examination nonfocal, nonlateralizing. Moves all extremities. HEENT examination demonstrates PERRL, EOMI. Tacky mucous membranes. Const Vital Signs: 02/06/25 19:12 02/06/25 19:12 02/06/25 19:14 Temperature 99.5 F H 99.5 F H Temperature Source Oral Oral Pulse Rate 112 H 112 H Respiratory Rate 24 H 24 H Blood Pressure 85/51 L 83/50 L 83/50 L Blood Pressure Mean 62 61 61 Pulse Ox 95 94 Oxygen Delivery Method 02/06/25 19:18 02/06/25 19:42 02/06/25 19:45 Temperature Temperature Source Pulse Rate 108 H Respiratory Rate 20 H Blood Pressure 124/58 H 125/78 H Blood Pressure Mean 80 93 Pulse Ox 98 Oxygen Delivery Method Room Air 02/06/25 19:45 02/06/25 19:46 02/06/25 20:00 Temperature Temperature Source Pulse Rate 113 H Respiratory Rate 29 H Blood Pressure 125/78 H 106/84 H Blood Pressure Mean 93 93 Pulse Ox Oxygen Delivery Method 02/06/25 20:04 02/06/25 20:15 02/06/25 20:30 Temperature Temperature Source Pulse Rate Respiratory Rate Blood Pressure 117/94 H Blood Pressure Mean 103 Pulse Ox 68 95 96 Oxygen Delivery Method 02/06/25 20:45 02/06/25 20:46 02/06/25 21:04 Temperature Temperature Source Pulse Rate 115 H Respiratory Rate 23 H Blood Pressure 127/77 H Blood Pressure Mean 92 Pulse Ox 85 Oxygen Delivery Method 02/06/25 21:05 02/06/25 21:50 Temperature 101.2 F H Temperature Source Pulse Rate 118 H 117 H Respiratory Rate 19 H 21 H Blood Pressure 135/46 H 117/79 Blood Pressure Mean 66 91 Pulse Ox 93 Oxygen Delivery Method Sepsis Attestation Sepsis Alert: Yes Sepsis Attestation: Agree w/Sepsis Date exam was performed: 02/06/25 Time exam was performed: 21:01 Possible Source of Sepsis: Genitourinary Sepsis Organ Dysfunction Criteria Present: SBP < 90 mmHg or MAP < 65 mmHg, Creatinine > 2.0 mg/dL and Lactic Acid > 2 mmol/L Supportive Findings: Patient spiked a fever while in the emergency department. Remains tachycardic. Hypotension resolved. Fluid Resuscitation Fluid resuscitation indicated?: Yes Fluid Resuscitation ordered: 30 ml/kg fluid bolus ordered Amount of fluid ordered: 2,000 Reason for lesser fluid bolus:: Renal Failure Sepsis Note Date exam was performed: 02/06/25 Time exam was performed: 22:02 Sepsis Attestation: Sepsis re-evaluation was performed Response to fluids: Fluid responsive hypotension MDM MDM MDM Narrative Medical decision making narrative: The differential diagnosis includes but not limited to sepsis from intra-abdominal process versus gastroenteritis versus dehydration versus intravascularvolume depletion. Comprehensive workup was pursued. Patient hypotensive in triage with temperature of 99.5 degrees and mild tachycardia. Sepsis protocol entered per RN. I reviewed her laboratory work and she has an elevated white count of 26.1 with hemoglobin 13.7, hematocrit 41.6, platelet count normal at 214. INR is 1.3 witha PTT 30.6. Electrolyte panel shows hyponatremia of 130 with potassium slightlyelevated at 5.3, chloride low at 89. BUN of 35 and acute kidney injury with creatinine elevated 2.59. Glucose is elevated at 108, lactic acid 3.4. She wasreceiving 2 L of normal saline. Her blood pressure has elevated to 135/46 but she remains tachycardic. AST of 39 with alk phos 147. I reviewed the radiology report of the CT of the abdomen pelvis with IV contrast. She does have an 8 mm stone in the renal pelvis causing hydronephrosis and pyelonephritis. Urinalysis is currently pending, however shewas started on Rocephin 2 g intravenously. Her urinalysis did return with greater than 100 WBCs and 4+ bacteria. Given her obstructing stone, pyelonephritis, and sepsis, I discussed patient with Dr. Cam with urology in the event that she would need a procedure including stenting or nephrostomy tube. He stated that he would like the hospitalist to admit the patient, and hewill take her to the OR for procedure tomorrow morning. I discussed the patientwith Dr. Kendrick for admission. Patient is in guarded condition. Dispositionis admitted to the ICU. History & Record Review Discussion w/independent historian: Patient Additional record(s) reviewed:: Prior ED visit Lab Data Attestation: I reviewed the patient's lab results. Labs: Laboratory Results - last 24 hr 02/06/25 02/06/25 19:40 21:00 WBC 26.1 H RBC 4.53 Hgb 13.7 Hct 41.6 MCV 91.8 MCH 30.2 MCHC 32.9 RDW Std Deviation 47.1 H RDW Coeff of Tavia 14.0 Plt Count 214 MPV 11.8 Immature Gran % (Auto) 4.300 H Neut % (Auto) 88.4 H Lymph % (Auto) 4.1 L Terry % (Auto) 2.5 Eos % (Auto) 0.0 Baso % (Auto) 0.7 Absolute Neuts (auto) 23.1 H Absolute Lymphs (auto) 1.06 Nucleated RBC % 0 Differential Comment SCANNED PT 16.2 H INR 1.3 APTT 30.6 Sodium 130 L Potassium 5.3 H Chloride 89 L Carbon Dioxide 22.3 Anion Gap 18 H BUN 35 H Creatinine 2.59 H Estim Creat Clear Calc 26.31 L Est GFR (MDRD) Non-Af 20 L BUN/Creatinine Ratio 13.6 Glucose 108 H Lactic Acid 3.4 H* Calcium 9.2 Total Bilirubin 0.60 AST 39 H ALT 23 Alkaline Phosphatase 147 H Total Protein 7.9 Albumin 3.6 Globulin 4.3 H Albumin/Globulin Ratio 0.9 Urine Color Yellow Urine Clarity Cloudy Urine pH 5.0 Ur Specific Bowler 1.015 Urine Protein 500 H Urine Glucose (UA) Normal Urine Ketones 5 H Urine Occult Blood 150 H Urine Nitrite Negative Urine Bilirubin 1 H Urine Urobilinogen Normal Ur Leukocyte Esterase 500 H Urine RBC 0 SEEN Urine WBC >100 SEEN Ur Squamous Epith Cells 5-10 SEEN Urine Bacteria 4+ Hyaline Casts 5-10 SEEN Urine Mucus 0 SEEN Radiography Diagnostic Testing: Clinical Impression(s) from Imaging Studies Abdomen/Pelvis CT 02/06/25 19:26 IMPRESSION: 1. Acute pyelonephritis of the left kidney, with a stone at the left renal pelvis measuring 8 mm. Consider Urology consultation. 2. Additional findings to include hiatal hernia, colonic diverticulosis, and left lung base atelectasis versus tiny pleural effusion. Reading Location: [id number] Chest X-Ray 02/06/25 19:47 IMPRESSION: No acute cardiopulmonary abnormality. Reading Location: [id number] Critical Care Time Critical Care Time: Yes Critical care time (excluding procedures): 30-74 minutes (32), Including time spent:, Discussing w/Patient &/or Family/Modeling Agent, Discussing w/Consultants (Discussed with Dr. Cam with urology), Arranging Admission or Transfer and Performing Direct Patient Care at Bedside Discharge Plan Dx/Rx/DC Orders Clinical Impression: Calculus of renal pelvis, Pyelonephritis, Severe sepsis Disposition Disposition: [facility] What to do if you have Problems For any increased pain, shortness of breath, bleeding, nausea or vomiting, chestpain, or any unexpected problems, contact your Primary Care Provider. Call [facility] ([phone]) or report to the closest Emergency Room. Call 911 if necessary. 02/06/252203 <Electronically signed by Seb Ernandez MD> Cosigner Signature (if applicable): CC: Dr. Deepak Rivers MD ~ Signed [facility] Work Phone: [phone]) 372-916405-19-2025 Telephone encounter Note* Telephone Encounter - Nigel Viveros APRN.CNP - 01/02/2025 12:18 PM EDT Approved. PDMP website checked and validated. All prescriptions have been APPROPRIATELY filled. No suspiciousactivity was identified. 01/02/2025 by Nigel Viveros APRN.CNP The following approved medication requests have been transmitted electronically. Requested Prescriptions Signed Prescriptions Disp Refills Zolpidem (AMBIEN CR) 12.5 mg CR tablet 30 tablet 2 Sig: Take 1 tablet by mouth at bedtime as needed for up to 90 days. Authorizing Provider: NIGEL VIVEROS APRN.CNP [facility]05-19-2025 Miscellaneous Notes* Telephone Encounter - Nigel Viveros APRN.CNP - 01/02/2025 12:18 PM EDT Approved. PDMP website checked and validated. All prescriptions have been APPROPRIATELY filled. No suspiciousactivity was identified. 01/02/2025 by Nigel Viveros APRN.CNP The following approved medication requests have been transmitted electronically. Requested Prescriptions Signed Prescriptions Disp Refills Zolpidem (AMBIEN CR) 12.5 mg CR tablet 30 tablet 2 Sig: Take 1 tablet by mouth at bedtime as needed for up to 90 days. Authorizing Provider: NIGEL VIVEROS APRN.CNP * Telephone Encounter - Marleni Munguia LPN - 01/02/2025 12:14 PM EDT Prescription Refill Information The patient has been identified by name and date of : Yes Caregiver verified no other encounters exist for this prescription request: Yes Caregiver confirmed with patient/requestor that no other refills are due, in the near future, with this provider at this time: Yes The last office visit in the department: 08/15/2024 Does the patient have a future office visit with this provider/department: Yes Requested Prescriptions Pending Prescriptions Disp Refills Zolpidem (AMBIEN CR) 12.5 mg CR tablet 30 tablet 2 Sig: Take 1 tablet by mouth at bedtime as needed for up to 90 days. Marleni Munguia LPN January 02, 2025 12:14 PM documented in this encounter[facility] Telephone encounter Note * Telephone Encounter - Marleni Munguia LPN - 01/02/2025 12:14 PM EDT Prescription Refill Information The patient has been identified by name and date of : Yes Caregiver verified no other encounters exist for this prescription request: Yes Caregiver confirmed with patient/requestor that no other refills are due, in the near future, with this provider at this time: Yes The last office visit in the department: 08/15/2024 Does the patient have a future office visit with this provider/department: Yes Requested Prescriptions Pending Prescriptions Disp Refills Zolpidem (AMBIEN CR) 12.5 mg CR tablet 30 tablet 2 Sig: Take 1 tablet by mouth at bedtime as needed for up to 90 days. Marleni Munguia LPN January 02, 2025 12:[address] [facility]04-22-2025 Telephone encounter Note* Telephone Encounter - Nigel Viveros APRN.CNP - 12/06/2024 8:46 AM EDT Marbella noted. Nigel Viveros APRN.CNP [facility]04-22-2025 Miscellaneous Notes* Telephone Encounter - Nigel Viveros APRN.CNP - 12/06/2024 8:46 AM EDT Marbella noted. Nigel Viveros APRN.LAURITA * Telephone Encounter - Katlyn Harris RN - 12/05/2024 10:54 AM EDT Nuzhat PT with [facility] calls to let provider know that patient was seen for PT visit today and during visit BP was elevated. BP 164/104 and upon recheck was the same. Asymptomatic. BP reading was prior to taking medication. Nuzhat reports that patient is in pain and over all tired from total shoulder reverse arthroplasty which could be contributing. Patient does not monitor bp at home. Katlyn Harris RN documented in this encounterSt. [facility]25 Telephone encounter Note * Telephone Encounter - Katlyn Harris RN - 12/05/2024 10:54 AM EDT Nuzhat PT with [facility] calls to let provider know that patient was seen for PT visit today and during visit BP was elevated. BP 164/104 and upon recheck was the same. Asymptomatic. BP reading was prior to taking medication. Nuzhat reports that patient is in pain and over all tired from total shoulder reverse arthroplasty which could be contributing. Patient does not monitor bp at home. Katlyn Harris RN [facility]04-08-2025 Discharge summary [facility] Medical Records Department [address] [facility] [place] [address] Discharge Summary 11/22/24 1200 MR#: [id number] Acct: [id number] Name: ADRIANNA BARNEY Rep #:[id number] : 1960 64 From: Padma HAJI PCP: Dr. Deepak Rivers MD Status:[facility] Location: [place] [address] Providers Date of Admission: 11/21/24 Date of Discharge: 11/22/24 Primary Care Physician: Dr. Deepak Rivers MD Reason For Visit: Total Shoulder Replacement, Reverse Diagnosis Discharge Diagnosis (1) Proximal humerus fracture: Status: Acute Code(s): S42.209A - Unspecified fracture of upper end of unspecified humerus, initial encounter for closed fracture Plan 1. Will continue PT/OT. Elbow range of motion and pendulums only. Nonweightbearing to right upper extremity. 2. plan for discharge this afternoon following PT 3. Patient will follow up for post op appointment on and 2 weeks postoperativelythis will need to be arranged. 4. Patient has outpatient PT appointment after her 2-week postop appointment. 5. WBC 15.4 acute reactive leukocytosis: secondary to pre operative decadron. noacute systemic signs of infection. will monitor, and likely self resolve. 6. H/H 12.3/36.5: post operavtive anemia secondary to acute blood loss intraoperatively. Patient isasymptomatic at this time. No intraoperative complications. will continue to monitor. no acute interventions. 7. DVT prophylaxis : Aspirin 81 mg twice daily x 2 weeks 8. Pain control: patient instructed to take tylenol 500mg 2 tablets TID. and oxycodone 1-2 tablets every 4-6 hours only as needed for pain control. 9. Patient also given a prescription of doxycycline, senna, patient has aspirin and Tylenol and Zofran at home.. 10. ok to remove post op dressing. post op day 7 Medications at Discharge Home Medications ondansetron 4 mg disintegrating tablet 4 mg PO TID PRN nausea and vomiting #21 tabs 11/03/24 cholecalciferol (vitamin D3) 25 mcg (1,000 unit) capsule (Vitamin D3) 25 mcg PO DAILY 11/14/24 coenzyme Q10 100 mg capsule (Co Q-10) 100 mg PO DAILY 11/14/24 hydrochlorothiazide 25 mg tablet 25 mg PO DAILY 11/14/24 losartan 100 mg tablet 100 mg PO DAILY 11/14/24 ranitidine HCl 150 mg tablet 150 mg PO DAILY PRN ACID REFLUX 11/14/24 simvastatin 20 mg tablet 20 mg PO QHS 11/14/24 zolpidem 12.5 mg tablet,extended release,multiphase 12.5 mg PO QHS PRN PRN insomnia 11/14/24 aspirin 81 mg tablet,delayed release 81 mg PO DAILY@0800 #28 tabs 11/22/24 doxycycline hyclate 100 mg capsule 100 mg PO BID #14 caps 11/22/24 meloxicam 7.5 mg tablet 7.5 mg PO BID #60 tabs 11/22/24 oxycodone 5 mg tablet 5 - 10 mg (1 - 2 x 5 mg) PO .q4-6hrs prn PRN Pain Score 4- 10 7 days #30 tabs 11/22/24 sennosides 8.6 mg-docusate sodium 50 mg tablet (Stimulant Laxative Plus) 2 tab PO BID #10 tabs 11/22/24 Hospital Course Operations - (Right reverse total shoulder arthroplasty.) Summary of Care Provided Hospital Course: Patient is s/p right reverse total shoulder arthroplasty with Dr. Flores. After a fall out of her bed and having a four-part proximal humerus fracture. Patient resting comfortably in bed. Rates pain 2/ 10 at rest. With movement 2/10. States taking Tylenol and oxycodone and ice help to relieve pain. Patient has been up with therapy. Compliant with sling. Nonweightbearing to right upper extremity.. Afebrile, no chest pain, shortness of breath, negative calf pain/ erythema, and no other signs of DVT. Physical Exam Narrative Patient resting comfortably in bed side chair No signs of acute distress Satting well on room air Sling in place Right upper extremity limb is warm to touch, Sensation intact throughout entire right upper extremity Motor intact to radial, median, ulnar nerve distribution Radial pulses bounding. Dressing clean dry intact Calf nontender to palpation, no erythema, no edema. Negative Homans Weight / BMI Weight Weight: 102.058 kg Body Mass Index (BMI) 35.2 ABG / Lab / Microbiology Data 11/22/24 07:01 11/22/24 07:01 Laboratory: Laboratory Results - last 24 hr 11/22/24 07:01: WBC 15.4 H, RBC 3.88 L, Hgb 12.3, Hct 36.5 L, MCV 94.1, MCH 31.7, MCHC 33.7, RDW Std Deviation 45.5 H, RDW Coeff of Tavia 13.2, Plt Count 283,MPV 12.4 H, Sodium 137, Potassium 4.3, Chloride 102, Carbon Dioxide 22.8, Anion Gap 13, BUN 8, Creatinine 0.60 L, Estim Creat Clear Calc 117.85, Est GFR (MDRD) Non-Af 101, BUN/Creatinine Ratio 13.6, Glucose 133 H, Calcium 9.4 Microbiology: Microbiology 11/15/24 16:21 Swab (Method) Nasal Screen MRSA/MSSA - Final Radiography Diagnostic Testing: Radiology Impression Shoulder X-Ray 11/21/24 14:21 IMPRESSION: Status post right shoulder arthroplasty. Anatomic alignment. Reading Location: [id number] Shoulder X-Ray 11/21/24 15:45 IMPRESSION: Postoperative right reverse shoulder arthroplasty. Reading Location: [id number] D/C Instructions Discharge Diet: No restrictions Discharge Activity: May Not Drive, May Shower and - (Nonweightbearing right upper extremity. Sling at all times.) Weight Bearing Status: No weight bearing (Right upper extremity) Call your doctor if your incision/area has: Continuous Slow Oozing, Sudden Increased Bleeding, Increased Pain/ Swelling, Increased Redness, Foul Smelling Discharge and Swelling at the incision site Call your doctor if you observe: Fever of 101 or Higher, Inability to have a bowel movement, Using more than 1 pad per hour, Shortness of breath, Swelling inthe ankles, Chest pain, Increased palpitations (irregular heartbeat), Calf discomfort and Uncontrolled pain Remove Dressing in: 1 week Cleanse incision/area with: Soap & Water and Keep Dressing Clean & Dry DC O2, CPAP, BIPAP Needs Home O2 Discharge instructions: No DC home with Oxygen: No Meaningful Use Info Meaningful Use Meaningful Use Diagnoses (Choose all that apply): None applicable Ischemic Stroke Statin Dosing Therapy Reference: STATIN DOSE THERAPY REFERENCE: * Patients > 75 years receive moderate or high dose statin therapy. * Patients 75 years or YOUNGER should receive HIGH intensity statin dose unless contraindicated. You will be required to document reason for non-treatment if statin daily dose does not meet guidelines. HIGH DOSE STATIN THERAPY DAILY Atorvastatin > than or = to 40 mg Rosuvastatin > than or = to 20 mg Amlodipine + Atorvastatin > than or = to 2.5/40 mg Ezetimibe + Simvastatin 10/80 mg Simvastatin 80mg Discharge Plan Admission Admit Date/Time: 11/21/24 15:16 Attending Provider: Man Flores Primary Care Provider: Deepak Rivers Discharge Orders/Prescriptions Prescriptions: New aspirin 81 mg Tablet,Delayed Release (Dr/Ec) 81 mg PO DAILY@0800 Qty: 28 0RF meloxicam 7.5 mg Tablet 7.5 mg PO BID Qty: 60 0RF oxycodone 5 mg Tablet 5 - 10 mg PO .q4-6hrs prn PRN (Reason: Pain Score 4-10) 7 Days Qty: 30 0RF sennosides-docusate sodium [Stimulant Laxative Plus] 8.6-50 mg Tablet 2 tab PO BID Qty: 10 0RF doxycycline hyclate 100 mg capsule 100 mg PO BID Qty: 14 0RF Continued simvastatin 20 mg tablet 20 mg PO QHS hydrochlorothiazide 25 mg tablet 25 mg PO DAILY losartan 100 mg tablet 100 mg PO DAILY coenzyme Q10 [Co Q-10] 100 mg capsule 100 mg PO DAILY cholecalciferol (vitamin D3) [Vitamin D3] 25 mcg (1,000 unit) capsule 25 mcg PO DAILY zolpidem 12.5 mg tablet,ext release multiphase 12.5 mg PO QHS PRN PRN (Reason: insomnia) ranitidine HCl 150 mg tablet 150 mg PO DAILY PRN ondansetron 4 mg tablet,disintegrating 4 mg PO TID PRN (Reason: nausea and vomiting) Qty: 21 0RF Discontinued oxycodone 5 mg tablet 5 mg PO Q6H PRN (Reason: pain) 5 Days Qty: 20 0RF Referrals / Follow Up: Deepak Rivers MD [Primary Care Provider] - Disposition Disposition (needs filled in before D/C Order can be placed): Home, Self Care 11/22/24 1211 Cosigner Signature (if applicable): CC: Dr. Deepak Rivers MD; RAISSA Jimenez~ Signed [facility]04-08-2025 [facility] Medical Records Department [address] [place] [address] Discharge Summary 11/22/24 1200 MR#: [id number] Acct: [id number] Name: ADRIANNA BARNEY Rep #: [id number] : 1960 64 From: Padma HAJI PCP: Dr. Deepak Rivers MD Status:ADM IRINEO Location: [place] [address] Providers Date of Admission: 11/21/24 Date of Discharge: 11/22/24 Primary Care Physician: Dr. Deepak Rivers MD Reason For Visit: Total Shoulder Replacement, Reverse Diagnosis Discharge Diagnosis (1) Proximal humerus fracture: Status: Acute Code(s): S42.209A - Unspecified fracture of upper end of unspecified humerus, initial encounter for closed fracture Plan 1. Will continue PT/OT. Elbow range of motion and pendulums only. Nonweightbearing to right upper extremity. 2. plan for discharge this afternoon following PT 3. Patient will follow up for post op appointment on and 2 weeks postoperatively this will need to be arranged. 4. Patient has outpatient PT appointment after her 2-week postop appointment. 5. WBC 15.4 acute reactive leukocytosis: secondary to pre operative decadron. no acute systemic signs of infection. will monitor, and likely self resolve. 6. H/H 12.3/36.5: post operavtive anemia secondary to acute blood loss intraoperatively. Patient is asymptomatic at this time. No intraoperative complications. will continue to monitor. no acute interventions. 7. DVT prophylaxis : Aspirin 81 mg twice daily x 2 weeks 8. Pain control: patient instructed to take tylenol 500mg 2 tablets TID. and oxycodone 1-2 tablets every 4-6 hours only as needed for pain control. 9. Patient also given a prescription of doxycycline, senna, patient has aspirin and Tylenol and Zofran at home.. 10. ok to remove post op dressing. post op day 7 Medications at Discharge Home Medications ondansetron 4 mg disintegrating tablet 4 mg PO TID PRN nausea and vomiting #21 tabs 11/03/24 cholecalciferol (vitamin D3) 25 mcg (1,000 unit) capsule (Vitamin D3) 25 mcg PO DAILY 11/14/24 coenzyme Q10 100 mg capsule (Co Q-10) 100 mg PO DAILY 11/14/24 hydrochlorothiazide 25 mg tablet 25 mg PO DAILY 11/14/24 losartan 100 mg tablet 100 mg PO DAILY 11/14/24 ranitidine HCl 150 mg tablet 150 mg PO DAILY PRN ACID REFLUX 11/14/24 simvastatin 20 mg tablet 20 mg PO QHS 11/14/24 zolpidem 12.5 mg tablet,extended release,multiphase 12.5 mg PO QHS PRN PRN insomnia 11/14/24 aspirin 81 mg tablet,delayed release 81 mg PO DAILY@0800 #28 tabs 11/22/24 doxycycline hyclate 100 mg capsule 100 mg PO BID #14 caps 11/22/24 meloxicam 7.5 mg tablet 7.5 mg PO BID #60 tabs 11/22/24 oxycodone 5 mg tablet 5 - 10 mg (1 - 2 x 5 mg) PO .q4-6hrs prn PRN Pain Score 4- 10 7 days #30 tabs 11/22/24 sennosides 8.6 mg-docusate sodium 50 mg tablet (Stimulant Laxative Plus) 2 tab PO BID #10 tabs 11/22/24 Hospital Course Operations - (Right reverse total shoulder arthroplasty.) Summary of Care Provided Hospital Course: Patient is s/p right reverse total shoulder arthroplasty with Dr. Flores. After a fall out of her bed and having a four-part proximal humerus fracture. Patient resting comfortably in bed. Rates pain 2/ 10 at rest. With movement 2/10. States taking Tylenol and oxycodone and ice help to relieve pain. Patient has been up with therapy. Compliant with sling. Nonweightbearing to right upper extremity.. Afebrile, no chest pain, shortness of breath, negative calf pain/ erythema, and no other signs of DVT. Physical Exam Narrative Patient resting comfortably in bed side chair No signs of acute distress Satting well on room air Sling in place Right upper extremity limb is warm to touch, Sensation intact throughout entire right upper extremity Motor intact to radial, median, ulnar nerve distribution Radial pulses bounding. Dressing clean dry intact Calf nontender to palpation, no erythema, no edema. Negative Homans Weight / BMI Weight Weight: 102.058 kg Body Mass Index (BMI) 35.2 ABG / Lab / Microbiology Data 11/22/24 07:01 11/22/24 07:01 Laboratory: Laboratory Results - last 24 hr 11/22/24 07:01: WBC 15.4 H, RBC 3.88 L, Hgb 12.3, Hct 36.5 L, MCV 94.1, MCH 31.7, MCHC 33.7, RDW Std Deviation 45.5 H, RDW Coeff of Tavia 13.2, Plt Count 283, MPV 12.4 H, Sodium 137, Potassium 4.3, Chloride 102, Carbon Dioxide 22.8, Anion Gap 13, BUN 8, Creatinine 0.60 L, Estim Creat Clear Calc 117.85, Est GFR (MDRD) Non-Af 101, BUN/Creatinine Ratio 13.6, Glucose 133 H, Calcium 9.4 Microbiology: Microbiology 11/15/24 16:21 Swab (Method) Nasal Screen MRSA/MSSA - Final Radiography Diagnostic Testing: Radiology Impression Shoulder X-Ray 11/21/24 14:21 IMPRESSION: Status post right shoulder arthroplasty. Anatomic alignment. Reading Location: R (more content not included)...[facility] 11-22-2024 Radiology Diagnostic study note [facility] Imaging Services [address] [place] [address] Shoulder One View MR#: [id number] Acct: [id number] Name: ADRIANNA BARNEY Rep #: [id number] : 1960 F 64 From: Mike Peguero MD PCP: Dr. Deepak Rivers MD Status: JORDEN CABELLO Study:Shoulder One View Date of Exam: Exam# [id number] Ordering Dr: Man Flores DO PROCEDURE: SHOULDER ONE VIEW 11/21/2024 REASON FOR EXAM: REVERSE TOTAL SHOULDER TECHNIQUE: 2 intraoperative fluoroscopic images from right shoulder replacement. COMPARISON: Right shoulder x-ray dated 11/03/2024. FINDINGS: Intraoperative images demonstrate right shoulder arthroplasty hardware, new since prior examination. Anatomic alignment. The humeral component is not viewed in its entirety on the images. RAD/Shoulder One View IMPRESSION: Status post right shoulder arthroplasty. Anatomic alignment. Reading Location: [id number] CC: Dr. Deepak Rivers MD; Dr. Man Flores DO ~ Orange Picking Supervisor: Signed [facility]04-07-2025 Consult note Author Shyam Sanchez [facility] Note Date/Time November 21, 2024 4:39 pm [facility] Medical Records Department [address] [place] [address] Anesthesia Postop Eval II 11/21/24 1639 MR#: [id number] Acct: [id number] Name: ADRIANNA BARNEY Rep #:[id number] : 1960 64 From: Shyam Sanchez MD PCP: Dr. Deepak Rivers MD Status:AD Pamella CABELLO Y Race: C Location: [place] [address] Anesthesia Postop Eval I Sum Postop Eval Completion status Anesthesia document: Postop Eval 1 completed: Yes Anesthesia Postop Eval I Summary Anesthesia Postop Eval I Summary: Anesthesia Postop Eval I: Assessment Summary Airway patent Yes 11/21/24 15:33 [email or web address] [email or web address] Spontaneous unlabored Yes 11/21/24 15:33 [email or web address] [email or web address] respirations Mental status Awake,Calm 11/21/24 15:33 [email or web address] [email or web address] nausea No 11/21/24 15:33 [email or web address] [email or web address] Vomiting No 11/21/24 15:33 [email or web address] [email or web address] Anesthesia Postop Eval I: Fluid Summary Crystalloid volume administer 1,500 04/07/25 15:33 [email or web address] [email or web address] (ml) Colloids volume administered ( ml) Blood Product volume administered (ml) Total IV fluid infused 1,500 11/21/24 15:33 [email or web address] Anesthesia Postop Eval I: Summary Notes Anesthesia Complication No 11/21/24 15:33 [email or web address] Anesthesia Complication Comment: Post-operative progress note Anesthesia: Postop Eval II Evaluation Mental status: Awake Pain Level: 0 nausea: No Vomiting: No 11/21/24 1639 <Electronically signed by Shyam Sanchez MD > Date _ Shyam Sanchez MD Cosigner Signature: Date CC: ~ Signed [facility] Work Phone: 1(635) 763-244004-07-2025 Consult note Author Matthew Fish [facility] Note Date/Time November 21, 2024 3:33 pm [facility] Medical Records Department [address] [place] [address] Anesthesia Postop Eval I 11/21/24 1532 MR#: [id number] Acct: [id number] Name: ADRIANNA BARNEY Rep #:[id number] : 1960 64 From: Matthew CHRISTIANSON PCP: Dr. Deepak Rivers MD Status: [facility] Race: C Location: [place] [address] Anesthesia: Postop Eval I Current Vital Signs Temperature: 97 F Pulse Rate: 90 Blood Pressure: 140/97 Respiratory Rate: 15 Pulse Ox: 98 Oxygen Delivery Method: Room Air Assessment Airway patent: Yes Spontaneous unlabored respirations: Yes Mental status: Awake and Calm nausea: No Vomiting: No Anesthesia Complication: No Fluid Hydration Crystalloid volume administer (ml): 1,500 Total IV fluid infused: 1,500 Progress Note Anesthesia document: Postop Eval 1 completed: Yes 11/21/24 1533 <Electronically signed by Matthew Fish CRNA> Date _ Matthew Fish SLIP FILLER Cosigner Signature: Date CC: ~ Signed [facility] Work Phone: 1(842) 281-380804-07-2025 Evaluation note* Diagnosis Onset Date Resolution Status Admit Date Proximal humerus fracture acute November 21, 2024 3:16pm [facility] Work Phone: 1(949) 561-183204-07-2025 Evaluation note* Diagnosis Onset Date Resolution Status Admit Date Proximal humerus fracture inactive November 21, 2024 3:16pm GRISELDA (acute kidney injury) acute February 06, 2025 10:00pm Calculus of renal pelvis acute February 06, 2025 10:00pm Lactic acidosis acute January 10:00pm Nausea vomiting and diarrhea acute February 06, 2025 10:00pm Obesity (BMI 30.0-34.9) acute J 2024 10:00pm Pyelonephritis acute February 06, 2025 10:00pm Severe sepsis acute February 06, 2025 10:00pm [facility] Work Phone: 1(670) 384-456504-07-2025 Radiology Diagnostic study note [facility] Imaging Services [address] [place] [id number] Shoulder min 2 Views MR#: [id number] Acct: [id number] Name: ADRIANNA BARNEY Rep #: [id number] : 1960 F 64 From: Martha Mann MD PCP: Dr. Deepak Rivers MD Status: JORDEN CABELLO Study:Shoulder min 2 Views Date of Exam: 11/21/24 Exam# [id number] Ordering Dr: Man Flores DO PROCEDURE: SHOULDER MIN 2 VIEWS 11/21/2024 REASON FOR EXAM: POST OP TECHNIQUE: 2 view(s) of the right shoulder COMPARISON: Intraoperative radiographs earlier same day. FINDINGS: Bones: Reverse shoulder arthroplasty in grossly anatomical alignment. Joints: Normal alignment. Mild degenerative changes of the acromioclavicular joint space. Soft tissues: Mild soft tissue swelling. Other: The visualized right lung is unremarkable. RAD/Shoulder min 2 Views IMPRESSION: Postoperative right reverse shoulder arthroplasty. Reading Location: [id number] CC: Dr. Deepak Rivers MD; Dr. Man Flores DO ~ Orange Picking Supervisor: Signed [facility]04-07-2025 Consult note [facility] Medical Records Department [address] [place] [address] Anesthesia Postop Eval II 11/21/24 1639 MR#: [id number] Acct: [id number] Name: ADRIANNA BARNEY Rep #:[id number] : 1960 64 From: Shyam Sanchez MD PCP: Dr. Deepak Rivers MD Status:AD M IRINEO Y Race: C Location: [facility] [id number] -[id number] Anesthesia Postop Eval I Sum Postop Eval Completion status Anesthesia document: Postop Eval 1 completed: Yes Anesthesia Postop Eval I Summary Anesthesia Postop Eval I Summary: Anesthesia Postop Eval I: Assessment Summary Airway patent Yes 11/21/24 15:33 [email or web address] [email or web address] Spontaneous unlabored Yes 11/21/24 15:33 [email or web address] [email or web address] respirations Mental status Awake,Calm 11/21/24 15:33 [email or web address] [email or web address] nausea No 11/21/24 15:33 [email or web address] [email or web address] Vomiting No 11/21/24 15:33 [email or web address] [email or web address] Anesthesia Postop Eval I: Fluid Summary Crystalloid volume administer 1,500 11/21/24 15:33 [email or web address] [email or web address] (ml) Colloids volume administered ( ml) Blood Product volume administered (ml) Total IV fluid infused 1,500 11/21/24 15:33 [email or web address] [email or web address] Anesthesia Postop Eval I: Summary Notes Anesthesia Complication No 11/21/24 15:33 [email or web address] Anesthesia Complication Comment: Post-operative progress note Anesthesia: Postop Eval II Evaluation Mental status: Awake Pain Level: 0 nausea: No Vomiting: No 11/21/24 1639 > Date _ Shyam Rojas Signature: Date CC: ~ Signed [facility]04-07-2025 Procedure note [facility] Medical Records Department [address] [facility] [place] [address] Operative Report 11/21/24 1549 MR#: [id number] Acct: [id number] Name: ADRIANNA BARNEY Rep #:[id number] : 1960 64 From: Man collier DO PCP: Dr. Deepak Rivers MD Status:[facility] Location: [place] [address] Operative Report (Standard) Operative Information Date of Procedure: 11/21/24 Pre-Operative Diagnosis: Right proximal humerus four-part fracture Post-Operative Diagnosis: Right proximal humerus four-part fracture Surgery/Procedure Performed: Right reverse total shoulder arthroplasty medical assistant instructor: Yes Florist'S Decorator: Padma Grace Tasks completed by first assistant manager: Opening & closing, Dissecting tissue, Implanting device, Hemostasis: Electrocautery and Retracting Additional welder assistant?: No Type of Anesthesia: General/Regional RN Documented Start/Stop Times: Operation Date: 11/21/24 12:35 Case Time Into Pre-Op 11/21/24 10:23 Anesthesia Start 11/21/24 13:00 Into Room 11/21/24 13:00 Procedure Start 11/21/24 13:32 Procedure End 11/21/24 15:05 Anesthesia End 11/21/24 15:23 Out of Room 11/21/24 15:23 Into Recovery 11/21/24 15:27 Procedure Start Time: 13:32 Procedure Stop Time: 15:05 Select all DRAINS/GRAFTS/IMPLANTS that apply: Implanted device Implanted device details: Ripnikt perform fracture stem size 12, +0 mm retentive polyethylene, Mane Aequalis PerFORM+ reversed baseplate 25 mm full wedge augmented, standard glenosphere cobalt chrome 39 mm diameter Estimated Blood Loss: 50 cc Specimen collected: Yes Description of specimen(s) removed: Right humeral head Description of surgery: Patient arrived to [facility] morning of the procedure and was greeted by the same day surgery staff. Prior to her procedure, I greeted the patient in the preoperative holding area I identified the patient by name, record number, and date of . Informed consent was confirmed. The operative extremity was marked. All questions were answered to patient satisfaction. Patient was also seen by anesthesia staff. Interscalene block was administered prior to procedure for postoperative analgesia. At time of her procedure, patient was brought to the operative suite and positioned supine on a standard table with a beachchair attachment. General anesthesia was induced after all bony prominences were well-padded. Endotracheal tube was placed. After adequate anesthesia and securing the tube, we prepared the patient to be positioned in the beachchair position. A well-padded cathead worker was applied. The nonoperative extremity was placed in a wellarm bacon. She was then brought into the beachchair position after we confirmed an appropriate blood pressure. We then spun the bed 45 degrees. Theoperative extremity was then prepared. In the butterfly wing of the bed was removed and a well-padded torso strap was applied to secure the patient to the bed. The operative extremity was now free. We then prepped and draped the right upper extremity in normal, sterile orthopedic fashion. We then performed a timeout with all parties in attendance in agreement with theside, site, and operation be performed. 2 g Ancef was administered prior to incision by anesthesia staff, as well as 1 g TXA IV. No concerns were voiced and we elected to proceed. I first marked a standard deltopectoral incision just lateral to the coracoid process in line with the long axis of the humerus. Skin was sharply incised with 10 blade scalpel. I then dissected bluntly through the subcutaneous layersand found the fat stripe between the deltoid and pectoralis major.The cephalicvein was then identified and protected. It was retracted laterally with the deltoid. I then bluntly dissected underneath the deltoid with a Kilpatrick elevator. This quickly identified the fracture site. The upper 1 cm of the pectoralis major was released. I then identified the long head of the biceps tendon in theintertubercular groove. This was tenodesed in situ with #2 FiberWire. I then amputated the biceps proximal to the tenodesis site and followed the tendon to the supraglenoid tubercle where it was amputated. This identified the lesser and greater tuberosities. I tagged the supraspinatus and subscapularis respectively with #2 suture tape for later repair along with their attached tuberosities. I then placed retractors around the posterior and anterior glenoid to expose the glenoid. Glenoid labrum was removed with Bovie cautery protecting the axillary nerve, which was in close proximity to the glenoid neck. We then used the full wedge augment guide from Mane to positionour centering pin. Guide was removed and pin was analyzed and compared to preoperative planning. Itappeared to be in appropriate position. This was reamed about 2 mm deep. We then remove the reamer and used the cannulated drillfor the central short post. Pin was removed. Post and baseplate was assembled on the back table. We then inserted the baseplate and central post and impactedthe baseplate to an appropriate depth. A Slater was used to confirm depth. 4 peripheral screws were placed with excellent purchase. The baseplate had excellent purchase and the entire scapula would rotate with rotation of the baseplate. We then impacted the 39 mm glenosphere and tightened the locking screw. We then removed retractors and turned our attention to the humerus. The calcar appeared to be intact. We utilized 30 degrees retroversion for placement of ourbroaches. We were able to place a size 12broach with good interference fit in the metaphysis. We selected this as our final size. I placed 2drill holes through the anterior cortex to reduce the tuberosities to the shaft. Suture tapes were placed through these drill holes and later shuttled through the tuberosities for stabilization. I copiously irrigated the canal. Broach was placed on hand and then impacted to an appropriate depth. I then trialed with astandard poly and brought through a range of motion. No significant impingementorinstability was noted even prior to tuberosity repair. Trials were removed and final standard polyethylene was placed. I then copiously irrigated the wound with dilute sterile Betadine and normal saline solution. Hemostasis was excellent. The axillary nerve was visualized andappeared to be intact. I then passed a cerclage #2 suture tape through the supraspinatus around the back of the implant and through the subscapularis. This was tied to close the rotator interval. I then secured the subscapularis tag suture and supraspinatustack suture to drill holes in the anterior humeral neck. I then ti ed the sutures together to again close interval. I then placed a xbbtri-ob-bfgag suture through theanterior superior region of the supraspinatus down to the subscapularis to further close the rotator interval. The entire proximal humeral segment appeared to move as 1 unit. Final fluoroscopic images were obtained. We then copiously irrigated the wound with normal saline solution. We reapproximated the interval with 0 Vicryl suture. Subcutaneous layers were reapproximated with 2-0 Vicryl suture.. Skin was finally running V-Loc Monocrylsuture and Dermabond. A sterile silver Mepilex dressing was applied. Patient was then placed in a abduction pillow sling. Patient tolerated procedure well without complication. She was positioned back in the supine position extubated in the operative suite. [facility] in [facility] condition. Need for skilled welder assistant: Padma Grace PA-C was critical to the outcome of thecase. During the course of the procedure the physician welder assistant played a vitalrole. Her intimate knowledge of my stepsin the procedure aided in safe and expedient completion of the procedure. The PA played a vital role in positioning particularly in obtaining the appropriate positioning. The PA was also vital in theretraction of soft tissues during the exposure and projecting vital structures. The PA was also vital and protecting soft tissues during times of bony cuts. She also played a vital role in closure with my direct supervision. The PA was also important during reduction and dislocation of the joint and trials intraoperatively. Intraoperative medications: 2 g Ancef IV, 1 g TXA IV Post Operative Plan: Weightbearing: Nonweightbearing right upper extremity, okay for pendulums. Range of motion of wristelbow and hand as tolerated. Antibiotics: 2 g Ancef IV prior to incision, Keflex x23 hours postop DVT Prophylaxis: Aspirin 81 mg twice daily starting tomorrow Grigsby: None Dressing: Maintain silver dressing x 5 days. Okay to shower dressing on startedon day 4 X-Rays: 2 weeks postop in the office Pain Medication: Oxycodone Rx upon discharge Follow-up: 2 weeks post-operatively with me in the office Surgical Findings: Displaced four-part proximal humerus fracture right. Stable tuberosity repair. Stable arc of motionright reverse shoulder arthroplasty following final reduction. Complications Complications: No Admit VTE Documentation VTE Present on Admission: No VTE Mechan Device Prophylaxis: SCD's VTE Pharm Prophylaxis ordered?: Yes 11/21/24 1559 Cosigner Signature (if applicable): CC: Dr. Deepak Rivers MD; Dr. Man Flores DO~ Signed ADDENDUM by Dr. Man Flores DO on 11/21/24 at 1611 Addendum Postoperative antibiotics correction: 24 hours IV Ancef as an inpatient. Plan for 1 week doxycycline for extended antibiotic prophylaxis given multiple risk factors. 11/21/24 1611 Cosigner Signature (if applicable): cc: Dr. Deepak Rivers MD; Dr. Man Flores DO ~* Signed [facility]04-07-2025 Consult note [facility] Medical Records Department [address] [place] [address] Anesthesia Postop Eval I 11/21/24 1532 MR#: [id number] Acct: [id number] Name: ADRIANNA BARNEY Rep #:[id number] : 1960 64 From: Matthew CHRISTIANSON PCP: Dr. Deepak Rivers MD Status:[facility] Race: C Location: [place] [address] Anesthesia: Postop Eval I Current Vital Signs Temperature: 97 F Pulse Rate: 90 Blood Pressure: 140/97 Respiratory Rate: 15 Pulse Ox: 98 Oxygen Delivery Method: Room Air Assessment Airway patent: Yes Spontaneous unlabored respirations: Yes Mental status: Awake and Calm nausea: No Vomiting: No Anesthesia Complication: No Fluid Hydration Crystalloid volume administer (ml): 1,500 Total IV fluid infused: 1,500 Progress Note Anesthesia document: Postop Eval 1 completed: Yes 11/21/24 1533 SLIP FILLER> Date _ Matthew Fish SLIP FILLER Cosigner Signature: Date CC: ~ Signed [facility]04-07-2025 Consult note Author Shyam Sanchez [facility] Note Date/Time November 21, 2024 10:4 4am [facility] Medical Records Department [address] [place] [address] Pre-Anesthesia Evaluation 11/21/24 1043 MR#: [id number] Acct: [id number] Name: ADRIANNA BARNEY Rep #:[id number] : 1960 64 From: Shyam Sanchez MD PCP: Dr. Deepak Rivers MD Status:[facility] Race: C Location: [place] [address] ASA Classification* ASA Classification ASA Classification: 2 Assessment & Plan Anesthesia* Anesthesia Assessment Anesthesia Assessment: Discussed sedation and/or anesthesia options, risks, benefits, and alternatives with patient/parents/legal guardian/POA. Questions invited. The patient/parents/legal guardian/POA seems to understand and agrees to proceedwith anesthesia plan. Reviewed the physical assessment, medical history, allergy history and patient home medications list prior to surgery/procedure/anesthetic and documented any changes. Performed airway and anesthesia risk assessments. Anesthesia Type Anesthesia Type: General and Block Anesthesia Focused Assessment* Airway Assessment Mouth opens: >3 cm Mallampati Score: II Focused Labs Anesthesia Preop lab: CBC WBC 12.7 K/mm3 (4.4-11.0) H 11/03/24 14:58 5 RBC 4.49 M/mm3 (4.2-5.4) 11/03/24 14:58 11/03/24 Hgb 14.2 g/dL (12.0-15.0) 11/03/24 14:58 11/03/24 Hct 42.2 % (37-47) 11/03/24 14:58 11/03/24 Plt Count 227 K/mm3 (150-450) 11/03/24 14:58 11/03/24 CHEMISTRY Potassium 3.5 mmol/L (3.3-5.1) 11/03/24 14:58 11/03/24 Sodium 133 mmol/L (133-145) 11/03/24 14:58 11/03/24 Magnesium 1.7 mg/dL (1.5-2.2) 11/15/24 16:21 11/15/24 BUN 14 mg/dL (4-19) 11/03/24 14:58 11/03/24 Creatinine 0.84 mg/dL (0.70-1.20) 11/03/24 14:58 11/03/24 Glucose 112 mg/dL (70-99) H 11/03/24 14:58 11/03/24 COAG Pre-Assessment Diagnosis/Proposed Procedure Planned Operative Procedure(s): (R) Total Shoulder Replacement, Reverse Anesthesia History Anesthesia History - crown attacher: Anesthesia History - crown attacher Hx Hospitalization No 11/14/24 12:38 Any Problems With Anesthesia No 11/14/24 12:38 Cholinesterase deficiency No 11/14/24 12:38 You/Your Family Experience No 11/14/24 12:38 fever (hyperthermia) with Relationship Recent Exposure to Contagious Disease Does patient have nerve No 11/14/24 12:38 stimulator Patient instructed to have device shut off --Does patient have Pacemaker or ICD? When Was Last Pacemaker Check QUESTION #4 FULL TEXT: You/Your Family Experience fever (hyperthermia) with Anesthesia Last Oral Intake Last Oral intake: Last Oral Intake NPO since Meds taken in AM with sips of water? Meds patient instructed to take am of surgery PONV PONV - crown attacher: PONV - crown attacher Female Yes 11/14/24 12:38 HX of Motion Sickness No 11/14/24 12:38 HX of N/V After Surgery No 11/14/24 12:38 Non-Smoker No 11/14/24 12:38 Duration of Surgery greater Yes 11/14/24 12:38 than 60 minutes Number of Risk Factors 2 11/14/24 12:38 PONV Score Moderate Risk 11/14/24 12:38 Height & Weight Height & Weight: Anesthesia: Height & Weight Height 5 ft 7 in 11/18/24 10:49 Weight: 99.79 kg 11/18/24 10:49 Respiratory Assessment Respiratory Assessment - crown attacher: Respiratory Tract Infection Hx - crown attacher Hx Respiratory Tract Infection No 11/14/24 12:38 STOP Sleep Apnea STOP Sleep Apnea - crown attacher: STOP Sleep Apnea - crown attacher Hx Hypertension Yes: PER PT, CONTROLLED ON 11/14/24 12:38 MEDS Hx Sleep Apnea No 11/14/24 12:38 CPAP BIPAP Do you snore loudly (louder No 11/14/24 12:38 than talking or can be heard Do you often feel tired/ No 11/14/24 12:38 fatigued/ sleepy during daytime? Has anyone observed you stop No 11/14/24 12:38 breathing during sleep? STOP Results Negative 11/14/24 12:38 QUESTION #5 FULL TEXT : Do you snore loudly (louder than talking or can be heard through closed doors)? 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 Use History - crown attacher: Tobacco Use History - crown attacher Tobacco Use Smoking Status Current every day smoker 11/14/24 12:38 Hx Tobacco Use Yes 11/14/24 12:38 Years Smoking Packs Smoked per Day Smoking Cessation Date was within the last 15 years Hx Smoking Cessation Date Hx Smoking Cessation Counseling Hematologic Medial History Hematologic Hx - crown attacher: Hematologic Medical Hx - documentation supervisor Hx of Blood Transfusion No 11/14/24 12:38 Hx of Transfusion in last 3 No 11/14/24 12:38 Months Date of Last Transfusion (if within last 3 months) Ever experience any problems No 11/14/24 12:38 with transfusion(s)? Specify any problems Hx of Preganancy in last 3 No 11/14/24 12:38 Months Nurse Filling Out Transfusion MGRIFFITH 11/14/24 12:38 & Questions: Date: 11/14/24 11/14/24 12:38 Time: 12:41 11/14/24 12:38 Patient unable to answer at this time (ie. confused, unrespo /Reproduction History /Reproductive History - crown attacher: /Reproductive Hx- crown attacher Hx Now No 11/14/24 12:38 Gestational Age (in weeks): EDC: Hx Hx Para Hx Section SAB No 11/14/24 12:38 Active Medications Active Medications: Current Medications Generic Name Dose Route Start Last Admin Trade Name Freq PRN Reason Stop Dose Admin Acetaminophen 1,000 mg 11/21/24 13:05 Acetaminophen 500 Mg Tablet PO 11/21/24 13:06 X1 ONE Celecoxib 400 mg 11/21/24 13:05 Celecoxib 200 Mg Capsule PO 11/21/24 13:06 X1 ONE Gabapentin 600 mg 11/21/24 13:05 Gabapentin 600 Mg Tablet PO 11/21/24 13:06 X1 ONE Magnesium Sulfate 2 gm/ 104 mls @ 208 mls/hr 11/21/24 13:05 Dextrose IV 11/21/24 13:34 X1 ONE Lactated Ringer's 1,000 mls @ 999 mls/hr 11/21/24 13:05 IV 11/21/24 14:05 .Q1H1M ALICE Cefazolin Sodium 2 gm/ N/A 20 mls @ 400 mls/hr 11/21/24 13:05 IV 11/21/24 13:07 PREOP ONE Tranexamic Acid 1,000 mg/ 110 mls @ 660 mls/hr 11/21/24 13:05 Sodium Chloride IV 11/21/24 13:14 X1 ONE Lactated Ringer's 1,000 mls @ 75 mls/hr 11/21/24 13:05 IV 11/22/24 02:24 .[id number] ALICE Lactated Ringer's 1,000 mls @ 125 mls/hr 11/21/24 13:05 IV 11/21/24 21:04 .Q8H ALICE Insulin Human Lispro 1 - 6 unit 11/21/24 13:05 Insulin Lispro 100 Unit/Ml Insuln.Pen SC 11/21/24 18:00 Q4H PRN PRN BG>/= 180, SEE PROTOCOL Protocol PFSH Medical History Wears glasses High cholesterol Gastric reflux Smoker Chronic cough Hypertension Home Medications ?Medication ?Instructions ?Recorded ?Last Taken ?Type ondansetron 4 mg disintegrating 4 mg PO TID PRN nausea and 11/03/24 Unknown Rx tablet vomiting #21 tabs oxycodone 5 mg tablet 5 mg PO Q6H PRN pain 5 days #20 11/03/24 Unknown Rx tabs cholecalciferol (vitamin D3) 25 25 mcg PO DAILY 11/20/24 History mcg (1,000 unit) capsule (Vitamin D3) coenzyme Q10 100 mg capsule (Co 100 mg PO DAILY 11/20/24 History Q-10) hydrochlorothiazide 25 mg tablet 25 mg PO DAILY 11/20/24 History losartan 100 mg tablet 100 mg PO DAILY 11/14/2402/08 History ranitidine HCl 150 mg tablet 150 mg PO DAILY PRN ACID REFLUX 11/14/24 11/20/24 History simvastatin 20 mg tablet 20 mg PO QHS 11/14/24 History zolpidem 12.5 mg tablet,extended 12.5 mg PO QHS PRN WA N insomnia 11/14/24 11/20/24 History release,multiphase Allergy/AdvReac Type Severity Reaction Status Date / Time No Known Allergies Allergy Verified 11/21/24 10:40 Surgical History History of History of cholecystectomy Social History Smoking Status: Current every day smoker tobacco type: cigarettes Review of Systems (Anesthesia) ROS Narrative System reviewed and no additional complaints, except as documented. 11/21/24 1044 <Electronically signed by Shyam Sanchez MD > Date _ Shyam Sanchez MD Cosigner Signature: Date CC: ~ Signed [facility] Work Phone: 1(162) 478-305604-07-2025 Consult note [facility] Medical Records Department [address] [place] [address] Pre-Anesthesia Evaluation 11/21/24 1043 MR#: [id number] Acct: [id number] Name: ADRIANNA BARNEY Rep #:[id number] : 1960 64 From: Shyam Sanchez MD PCP: Dr. Deepak Rivers MD Status:[facility] Race: C Location: [facility] ASA Classification* ASA Classification ASA Classification: 2 Assessment & Plan Anesthesia* Anesthesia Assessment Anesthesia Assessment: Discussed sedation and/or anesthesia options, risks, benefits, and alternatives with patient/parents/legal guardian/POA. Questions invited. The patient/parents/legal guardian/POA seems to understand and agrees to proceedwith anesthesia plan. Reviewed the physical assessment, medical history, allergy history and patient home medications list prior to surgery/procedure/anesthetic and documented any changes. Performed airway and anesthesia risk assessments. Anesthesia Type Anesthesia Type: General and Block Anesthesia Focused Assessment* Airway Assessment Mouth opens: >3 cm Mallampati Score: II Focused Labs Anesthesia Preop lab: CBC WBC 12.7 K/mm3 (4.4-11.0) H 11/03/24 14:58 5 RBC 4.49 M/mm3 (4.2-5.4) 11/03/24 14:58 11/03/24 Hgb 14.2 g/dL (12.0-15.0) 11/03/24 14:58 11/03/24 Hct 42.2 % (37-47) 11/03/24 14:58 11/03/24 Plt Count 227 K/mm3 (150-450) 11/03/24 14:58 11/03/24 CHEMISTRY Potassium 3.5 mmol/L (3.3-5.1) 11/03/24 14:58 11/03/24 Sodium 133 mmol/L (133-145) 11/03/24 14:58 11/03/24 Magnesium 1.7 mg/dL (1.5-2.2) 11/15/24 16:21 11/15/24 BUN 14 mg/dL (4-19) 11/03/24 14:58 11/03/24 Creatinine 0.84 mg/dL (0.70-1.20) 11/03/24 14:58 11/03/24 Glucose 112 mg/dL (70-99) H 11/03/24 14:58 11/03/24 COAG Pre-Assessment Diagnosis/Proposed Procedure Planned Operative Procedure(s): (R) Total Shoulder Replacement, Reverse Anesthesia History Anesthesia History - crown attacher: Anesthesia History - crown attacher Hx Hospitalization No 11/14/24 12:38 Any Problems With Anesthesia No 11/14/24 12:38 Cholinesterase deficiency No 11/14/24 12:38 You/Your Family Experience No 11/14/24 12:38 fever (hyperthermia) with Relationship Recent Exposure to Contagious Disease Does patient have nerve No 11/14/24 12:38 stimulator Patient instructed to have device shut off --Does patient have Pacemaker or ICD? When Was Last Pacemaker Check QUESTION #4 FULL TEXT: You/Your Family Experience fever (hyperthermia) with Anesthesia Last Oral Intake Last Oral intake: Last Oral Intake NPO since Meds taken in AM with sips of water? Meds patient instructed to take am of surgery PONV PONV - crown attacher: PONV - crown attacher Female Yes 11/14/24 12:38 HX of Motion Sickness No 11/14/24 12:38 HX of N/V After Surgery No 11/14/24 12:38 Non-Smoker No 11/14/24 12:38 Duration of Surgery greater Yes 11/14/24 12:38 than 60 minutes Number of Risk Factors 2 11/14/24 12:38 PONV Score Moderate Risk 11/14/24 12:38 Height & Weight Height & Weight: Anesthesia: Height & Weight Height 5 ft 7 in 11/18/24 10:49 Weight: 99.79 kg 11/18/24 10:49 Respiratory Assessment Respiratory Assessment - crown attacher: Respiratory Tract Infection Hx - crown attacher Hx Respiratory Tract Infection No 11/14/24 12:38 STOP Sleep Apnea STOP Sleep Apnea - crown attacher: STOP Sleep Apnea - crown attacher Hx Hypertension Yes: PER PT, CONTROLLED ON 11/14/24 12:38 MEDS Hx Sleep Apnea No 11/14/24 12:38 CPAP BIPAP Do you snore loudly (louder No 11/14/24 12:38 than talking or can be heard Do you often feel tired/ No 11/14/24 12:38 fatigued/ sleepy during daytime? Has anyone observed you stop No 11/14/24 12:38 breathing during sleep? STOP Results Negative 11/14/24 12:38 QUESTION #5 FULL TEXT : Do you snore loudly (louder than talking or can be heard through closeddoors)? 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 Use History - crown attacher: Tobacco Use History - crown attacher Tobacco Use Smoking Status Current every day smoker 11/14/24 12:38 Hx Tobacco Use Yes 11/14/24 12:38 Years Smoking Packs Smoked per Day Smoking Cessation Date was within the last 15 years Hx Smoking Cessation Date Hx Smoking Cessation Counseling Hematologic Medial History Hematologic Hx - crown attacher: Hematologic Medical Hx - documentation supervisor Hx of Blood Transfusion No 11/14/24 12:38 Hx of Transfusion in last 3 No 11/14/24 12:38 Months Date of Last Transfusion (if within last 3 months) Ever experience any problems No 11/14/24 12:38 with transfusion(s)? Specify any problems Hx of Preganancy in last 3 No 11/14/24 12:38 Months Nurse Filling Out Transfusion MGRIFFITH 11/14/24 12:38 & Questions: Date: 11/14/24 11/14/24 12:38 Time: 12:41 11/14/24 12:38 Patient unable to answer at this time (ie. confused, unrespo /Reproduction History /Reproductive History - crown attacher: /Reproductive Hx- crown attacher Hx Now No 11/14/24 12:38 Gestational Age (in weeks): EDC: Hx Hx Para Hx Section SAB No 11/14/24 12:38 Active Medications Active Medications: Current Medications Generic Name Dose Route Start Last Admin Trade Name Freq PRN Reason Stop Dose Admin Acetaminophen 1,000 mg 11/21/24 13:05 Acetaminophen 500 Mg Tablet PO 11/21/24 13:06 X1 ONE Celecoxib 400 mg 11/21/24 13:05 Celecoxib 200 Mg Capsule PO 11/21/24 13:06 X1 ONE Gabapentin 600 mg 11/21/24 13:05 Gabapentin 600 Mg Tablet PO 11/21/24 13:06 X1 ONE Magnesium Sulfate 2 gm/ 104 mls @ 208 mls/hr 11/21/24 13:05 Dextrose IV 11/21/24 13:34 X1 ONE Lactated Ringer's 1,000 mls @ 999 mls/hr 11/21/24 13:05 IV 11/21/24 14:05 .Q1H1M ALICE Cefazolin Sodium 2 gm/ N/A 20 mls @ 400 mls/hr 11/21/24 13:05 IV 11/21/24 13:07 PREOP ONE Tranexamic Acid 1,000 mg/ 110 mls @ 660 mls/hr 11/21/24 13:05 Sodium Chloride IV 11/21/24 13:14 X1 ONE Lactated Ringer's 1,000 mls @ 75 mls/hr 11/21/24 13:05 IV 11/22/24 02:24 .[id number] ALICE Lactated Ringer's 1,000 mls @ 125 mls/hr 11/21/24 13:05 IV 11/21/24 21:04 .Q8H ALICE Insulin Human Lispro 1 - 6 unit 11/21/24 13:05 Insulin Lispro 100 Unit/Ml Insuln.Pen SC 11/21/24 18:00 Q4H PRN PRN BG>/= 180, SEE PROTOCOL Protocol PFS Medical History Wears glasses High cholesterol Gastric reflux Smoker Chronic cough Hypertension Home Medications ?Medication ?Instructions ?Recorded ?Last Taken ?Type ondansetron 4 mg disintegrating 4 mg PO TID PRN nausea and 11/03/24 Unknown Rx tablet vomiting #21 tabs oxycodone 5 mg tablet 5 mg PO Q6H PRN pain 5 days #20 11/03/24 Unknown Rx tabs cholecalciferol (vitamin D3) 25 25 mcg PO DAILY 11/20/24 History mcg (1,000 unit) capsule (Vitamin D3) coenzyme Q10 100 mg capsule (Co 100 mg PO DAILY 11/20/24 History Q-10) hydrochlorothiazide 25 mg tablet 25 mg PO DAILY 11/20/24 History losartan 100 mg tablet 100 mg PO DAILY 11/14/2402/08 History ranitidine HCl 150 mg tablet 150 mg PO DAILY PRN ACID REFLUX 11/14/24 11/20/24 History simvastatin 20 mg tablet 20 mg PO QHS 11/14/24 History zolpidem 12.5 mg tablet,extended 12.5 mg PO QHS PRN WA N insomnia 11/14/24 11/20/24 History release,multiphase Allergy/AdvReac Type Severity Reaction Status Date / Time No Known Allergies Allergy Verified 11/21/24 10:40 Surgical History History of History of cholecystectomy Social History Smoking Status: Current every day smoker tobacco type: cigarettes Review of Systems (Anesthesia) ROS Narrative System reviewed and no additional complaints, except as documented. 11/21/24 1044 > Date _ Shyam Sanchez MD Cosigner Signature: Date CC: ~ Signed [facility]03-28-2025 Telephone encounter Note* Telephone Encounter - Nigel Viveros APRN.CNP - 11/11/2024 10:40 AM EDT The following approved medication requests have been transmitted electronically. Requested Prescriptions Pending Prescriptions Disp Refills simvastatin (ZOCOR) 20 mg tablet 90 tablet 3 Sig: Take 1 tablet by mouth daily at bedtime. Nigel Viveros APRN.CNP [facility]03-28-2025 Miscellaneous Notes* Telephone Encounter - Nigel Viveros APRN.CNP - 11/11/2024 10:40 AM EDT The following approved medication requests have been transmitted electronically. Requested Prescriptions Pending Prescriptions Disp Refills simvastatin (ZOCOR) 20 mg tablet 90 tablet 3 Sig: Take 1 tablet by mouth daily at bedtime. Nigel Viveros APRN.CNP * Telephone Encounter - Melissa Herbert OCCA - 11/11/2024 10:22 AM EDT Prescription Refill Information The patient has been identified by name and date of : Yes Caregiver verified no other encounters exist for this prescription request: Yes Caregiver confirmed with patient/requestor that no other refills are due, in the near future, with this provider at this time: Yes The last office visit in the department: 08/15/2024 Does the patient have a future office visit with this provider/department: Yes, 02/09/2025 Requested Prescriptions Pending Prescriptions Disp Refills simvastatin (ZOCOR) 20 mg tablet 90 tablet 3 Sig: Take 1 tablet by mouth daily at bedtime. TRACE Ortez November 11, 2024 10:22 AM documented in [facility] encounter[facility] Telephone encounter Note * Telephone Encounter - Melissa Herbert OCCA - 11/11/2024 10:22 AM EDT Prescription Refill Information The patient has been identified by name and date of : Yes Caregiver verified no other encounters exist for this prescription request: Yes Caregiver confirmed with patient/requestor that no other refills are due, in the near future, with this provider at this time: Yes The last office visit in the department: 08/15/2024 Does the patient have a future office visit with this provider/department: Yes, 02/09/2025 Requested Prescriptions Pending Prescriptions Disp Refills simvastatin (ZOCOR) 20 mg tablet 90 tablet 3 Sig: Take 1 tablet by mouth daily at bedtime. TRACE Ortez November 11, 2024 10:[address] [facility]03-21-2025 Radiology Diagnostic study note [facility] Imaging Services [address], [place] [address] Extremity Upper without Contra MR#: [id number] Acct: [id number] Name: ADRIANNA BARNEY Rep #: [id number] : 1960 F 64 From: Wade Ayala DO PCP: Dr. Deepak Rivers MD Status: RE G CLI Study:Extremity Upper without Contra Date of Exam: 11/03/24 Exam# [id number] Ordering Dr: Ashlyn Teixeira PROCEDURE: Noncontrast CT of the right shoulder. 11/03/2024 REASON FOR EXAM: Proximal right humerus fracture TECHNIQUE: Contiguous unenhanced axial CT images were obtained through the right shoulder. Sagittal and coronal reformats were created. One or more dose reduction techniques were used (e.g., Automated exposure control, adjustment of the mA and/or kV according to patient size, use of iterative reconstruction technique). RADIATION DOSE SUMMARY: DLP: 807.95 mGycm COMPARISON: Right shoulder radiographs from the same day FINDINGS: Included portions of the spine, sternum, right scapula, and right clavicle are intact. The includedright ribs are intact. The included portions of the trachea and right lung are clear. The included right breast is unremarkable. There is a displaced extensively comminuted fracture involving the right humeral head/neck junction. Fracture extends into the right humeral head which demonstrates a comminuted appearance. The bulk of the right humeral head is displaced inferiorly relative to the glenoid, without significant anterior/posterior dislocation. There is edema involving the soft tissues and musculature of the proximal right humerus as well as the rotator cuff. No bony Bankart lesion is demonstrated. Small right glenohumeral joint effusion. No AC joint separation. CT/Extremity Upper without Contra IMPRESSION: Displaced comminuted fracture involving the proximal right humerus, extending into the right humeral head. The bulk of the right humeral head is displaced inferiorly relative to the glenoid. Small glenohumeral joint effusion and moderate edema involving the nearby musculature and soft tissues/subcutaneous fat of the upper right arm. Reading Location: [facility] CC: RAISSA Mendiola; Dr. Deepak Rivers MD ~ [place] Picking Supervisor: Signed [facility]03-20-2025 Discharge summary [facility] Medical Records Department [address] [place] [address] Emergency Department Summary 11/03/24 MR#: [id number] Acct: [id number] Name: ADRIANNA BARNEY Rep #:[id number] : 1960 64 From: Luis Geiger DO PCP: Dr. Deepak Rivers MD Status:RE G ER Location: ED HPI History of Present Illness Chief Complaint: Upper Extremity Injury Informant: patient and spouse/S.O. Narrative Narrative: Patient is a 64-year-old female who reports a past medical history of hypertension and hyperlipidemia. She reports she is right-hand dominant. She states around 3 in the morning she fell out of bed and landed on her right side. She denies any LOC and states she does not have a history of bleeding disorder nor does she take blood thinners. She states she noticed pain in her right upper arm/shoulder but tried to go back to bed. She states over the next 3 hours any type of motion causes severe pain and she noticed increased swelling to the arm and therefore with concern for fracture she presentsfor evaluation [facility] Medical History no medical history no medical history Home Medications ?Medication ?Instructions ?Recorded ?Last Taken ?Type ondansetron 4 mg disintegrating 4 mg PO TID PRN nausea and 11/03/24 Unknown Rx tablet vomiting #21 tabs oxycodone 5 mg tablet 5 mg PO Q6H PRN pain 5 days #20 11/03/24 Unknown Rx tabs Allergy/AdvReac Type Severity Reaction Status Date / Time Unable to Assess Allergy Verified 11/03/24 06:04 Social History Smoking Status: Current every day smoker tobacco type: cigarettes ROS ROS ED Constitutional Constitutional ED: Denies chills or fever(s) Eyes Eyes: Denies blurry vision, change in vision or diplopia ENT ENT ED: Denies sore throat Cardiovascular Cardiovascular: Denies chest pain Respiratory/Chest Respiratory/Chest: Denies cough or dyspnea Gastrointestinal Gastrointestinal: Denies abdominal pain, diarrhea, nausea or vomiting Genitourinary Genitourinary ED: Denies dysuria Musculoskeletal Musculoskeletal: Reports other Details: Positive right shoulder/upper arm pain ; Denies back pain or neck pain Integumentary Reports other Details: Positive bruising right upper arm Neurologic Neurologic: Denies headache(s) or paresthesias Hematologic/Lymphatic Hematologic/Lymphatic: Denies easy bleeding or easy bruising EXAM Physical Exam Const Vital Signs: 11/03/24 06:00 Temperature 97.4 F L Temperature Source Oral Pulse Rate 84 Respiratory Rate 22 H Blood Pressure 158/86 H Blood Pressure Mean 110 Pulse Ox 98 Positive well nourished, well developed and obese General Appearance ED: well developed Nutritional Appearance: obese HEENT HEENT Narrative: Normocephalic atraumatic Eyes PERRL and EOMs intact bilaterally Neck full ROM and supple Neck Narrative: No bony deformity or step-off of the cervical spine no midline tenderness to palpation Resp normal respiratory effort and clear to auscultation bilaterally Cardio regular rate and regular rhythm Back/Spine Back/Spine Narrative: No bony deformity or step-off of the thoracic or lumbar spine no midline tenderness to palpation Extremity Extremity Narrative: Right upper extremity is neurovascularly intact; AIN/PIN are intact and normal Patient has ecchymosis and soft tissue swelling of the right upper arm/humerus compared to left concerning for fracture. Compartments are soft and compressible however going against compartment syndrome. No sulcus sign noted. Active range of motion as well as passive range of motion is severely limited secondary to pain Pelvis is stable there is no shortening or external rotation of either lower extremity Remainder of the exam is normal Neuro oriented x3 and CN's II-XII intact bilaterally Sensorium / Orientation: alert Psych mental status grossly normal Skin Skin Narrative: Soft tissue swelling ecchymosis of the right upper arm/humerus as documented above Capillary refill is less than 3 seconds MDM MDM MDM Narrative Medical decision making narrative: Patient presented to the ER hypertensive as a past medical history of this. Shereported a mechanical fall from her bed she is not on a blood thinner nor does she have signs of head trauma so my concern for a skull fracture versus traumatic subarachnoid or subdural hemorrhage is low and I feel no need for headCT. The patient has soft tissue swelling ecchymosis of the right upper arm but compartments are soft and compressible going against compartment syndrome. As history and exam is most concerning with a proximal humerus fracture/shoulder fracture x-rays were obtained. This confirmed a comminuted humeral head/neck fracture. The case was discussed and reviewed by orthopedic surgeon Dr. Flores. He agrees as she is neurovascularly intact there is no need for emergent surgical fixation. He recommends he be placed in a sling for stabilization and can follow-up as an outpatient. This plan ofcare was discussed with patient and family and they are agreeable to it and therefore sheprescribedoxycodone for pain control but is otherwise safe for discharge History & Record Review Discussion w/independent historian: Patient and Significant other Radiography Diagnostic Testing: X-ray of the right shoulder displays a comminuted fracture of the right humeral head/neck junction without obvious dislocation X-ray of the right humerus shows the comminuted fracture of the right humeral head with intact distal humerus Discharge Plan Triage Chief Complaint: Upper Extremity Injury ED Provider: Luis Geiger Dx/Rx/DC Orders Clinical Impression: Fracture of shoulder, Accidental fall, Hypertension, Hyperlipidemia Instructions: ED Fracture, Upper Extremity, ED Fracture, Shoulder Prescriptions: New oxycodone 5 mg tablet 5 mg PO Q6H PRN (Reason: pain) 5 Days Qty: 20 0RF ondansetron 4 mg tablet,disintegrating 4 mg PO TID PRN (Reason: nausea and vomiting) Qty: 21 0RF Primary Care Provider: Deepak Rivers Referrals: Deepak Rivers MD [Primary Care Provider] - Man Flores DO [Med Staff - Active Staff] - (Right shoulder fracture) Activity Restrictions/Additional Instructions: Please wear your sling for support and stabilization of your fracture. Sleep inmore of an upright position to allow gravity to lengthen the fracture fragment out. Follow-up with orthopedics/Dr. Flores for repeat evaluation and to discuss need for surgical fixation of your shoulder. Return to the ER should you have any further concerns Print Language: Polish Disposition Disposition: Home, Self Care What to do if you have Problems For any increased pain, shortness of breath, bleeding, nausea or vomiting, chestpain, or any unexpected problems, contact your Primary Care Provider. Call [facility] ([phone]) or report tothe closest Emergency Room. Call 911 if necessary. 11/03/24 0740 Cosigner Signature (if applicable): CC: Dr. Deepak Rivers MD ~ Signed [facility]03-20-2025 Radiology Diagnostic study note [facility] Imaging Services [address], [place] [id number] Shoulder min 2 Views MR#: [id number] Acct: [id number] Name: ADRIANNA BARNEY Rep #: [id number] : 1960 F 64 From: Wade Ayala DO PCP: Dr. Deepak Rivers MD Status: RE G ER Study:Shoulder min 2 Views Date of Exam: 11/03/24 Exam# [id number] Ordering Dr: Germania Geiger DO PROCEDURE: Right shoulder radiographs, three views 11/03/2024 REASON FOR EXAM: PAIN, fall TECHNIQUE: Three views of the right shoulder were obtained. FINDINGS: Three radiographic images of the right shoulder were obtained. Mild degenerative change of the right acromioclavicular joint. No AC joint widening. Included right lung is clear. There is a comminuted displaced fracture of the right humeral head/neck junction. There is a comminuted appearance of the right humeral head. A large portion of the right humeral head is displaced inferior to the glenoid, without significant anterior or posterior dislocation. RAD/Shoulder min 2 Views IMPRESSION: Comminuted displaced fracture of the proximal right humerus/right humeral head as above. There is inferior displacement of a large portion of the right humeral head inferior to the glenoid. Reading Location[facility] CC: Dr. Deepak Rivers MD; Luis Geiger DO ~ [place] Picking Supervisor: Signed [facility]03-20-2025 Radiology Diagnostic study note [facility] Imaging Services [address], [place] [address] Humerus min 2 Views MR#: [id number] Acct: [id number] Name: ADRIANNA BARNEY Rep #: [id number] : 1960 F 64 From: Wade Ayala DO PCP: Dr. Deepak Rivers MD Status: RE G ER Study:Humerus min 2 Views Date of Exam: 11/03/24 Exam# [id number] Ordering Dr: Germania Geiger DO PROCEDURE: Right humerus radiographs, three views 11/03/2024 REASON FOR EXAM: PAIN fall TECHNIQUE: Three views of the right humerus were obtained. COMPARISON: None. FINDINGS: 3 views of the right humerus were obtained. The mid to distal right humerus andincluded proximal radius/ulna are intact. There is a displaced comminuted fracture involving the right humeral head/neck junction, which extends into the substance of the humeral head. A large portion of the humeral head is displaced inferiorly relative to the glenoid. RAD/Humerus min 2 Views IMPRESSION: Comminuted displaced fracture of the proximal right humerus/humeral head. Reading Location: [facility] CC: Dr. Deepak Rivers MD; Luis Geiger DO ~ [place] Picking Supervisor: Signed [facility]02-24-2025 Telephone encounter Note* Telephone Encounter - Nigel Viveros APRN.CNP - 10/10/2024 11:31 AM EST Approved. [facility] website checked and validated. All prescriptions have been APPROPRIATELY filled. No suspiciousactivity was identified. 10/10/2024 by Nigel Viveros APRN.CNP The following approved medication requests have been transmitted electronically. Requested Prescriptions Signed Prescriptions Disp Refills Zolpidem (AMBIEN CR) 12.5 mg CR tablet 30 tablet 2 Sig: Take 1 tablet by mouth at bedtime as needed for up to 90 days. Authorizing Provider: NIGEL VIVEROS APRN.CNP [facility]02-24-2025 Miscellaneous Notes* Telephone Encounter - Nigel Viveros APRN.CNP - 10/10/2024 11:31 AM EST Approved. [facility] website checked and validated. All prescriptions have been APPROPRIATELY filled. No suspiciousactivity was identified. 10/10/2024 by Nigel Viveros APRN.CNP The following approved medication requests have been transmitted electronically. Requested Prescriptions Signed Prescriptions Disp Refills Zolpidem (AMBIEN CR) 12.5 mg CR tablet 30 tablet 2 Sig: Take 1 tablet by mouth at bedtime as needed for up to 90 days. Authorizing Provider: NIGEL VIVEROS APRN.CNP * Telephone Encounter - Marleni Munguia LPN - 10/10/2024 11:09 AM EST Prescription Refill Information The patient has been identified by name and date of : Yes Caregiver verified no other encounters exist for this prescription request: Yes Caregiver confirmed with patient/requestor that no other refills are due, in the near future, with this provider at this time: Yes The last office visit in the department: 08/15/2024 Does the patient have a future office visit with this provider/department: Yes Requested Prescriptions Pending Prescriptions Disp Refills Zolpidem (AMBIEN CR) 12.5 mg CR tablet 30 tablet 2 Sig: Take 1 tablet by mouth at bedtime as needed for up to 90 days. Marleni Munguia LPN October 10, 2024 11:09 AM documented in this encounter[facility]. [facility] Telephone encounter Note * Telephone Encounter - Marleni Munguia LPN - 10/10/2024 11:09 AM EST Prescription Refill Information The patient has been identified by name and date of : Yes Caregiver verified no other encounters exist for this prescription request: Yes Caregiver confirmed with patient/requestor that no other refills are due, in the near future, with this provider at this time: Yes The last office visit in the department: 08/15/2024 Does the patient have a future office visit with this provider/department: Yes Requested Prescriptions Pending Prescriptions Disp Refills Zolpidem (AMBIEN CR) 12.5 mg CR tablet 30 tablet 2 Sig: Take 1 tablet by mouth at bedtime as needed for up to 90 days. Marleni Munguia LPN October 10, 2024 11:[address] [facility]01-21-2025 NotePatient Outreach ([place]) ADRIANNA BARNEY ([id number]) 1960 F Date Time Provider Department 09/06/24 [place], DEEPAK D FAMPWS During your visit today, we recorded the following information about you: Allergies As of Date: 09/06/2024 (No Known Allergies) Date Reviewed: 08/15/2024 Reviewed by: Nancy Ramirez MA - Fully Assessed Visit Diagnosis:Encounter for screening mammogram for breast cancer [Z12.31] Order(s):FRANCIA SCREENING W BENY [[id number]] Order #: [id number] FUTURE Prescriptions as of 10/07/2024 - Zolpidem (AMBIEN CR) 12.5 mg CR tablet Take 1 tablet by mouth at bedtime as needed for up to 90 days. - hydroCHLOROthiazide 25 mg tablet Take 1 tablet by mouth once daily. - losartan (COZAAR) 100 mg tablet Take 1 tablet by mouth once daily. - amLODIPine (NORVASC) 10 mg tablet Take 1 tablet by mouth once daily. - albuterol HFA (PROAIR HFA) 90 mcg/actuation inhaler Inhale 2 Puffs as instructed every 4 hours as needed for wheezing/shortness of breath. - simvastatin (ZOCOR) 20 mg tablet Take 1 tablet by mouth daily at bedtime. - cholecalciferol, vitamin D3, (VITAMIN D3) 4,000 unit cap 1 po daily - coenzyme Q10 (COENZYME Q-10) 100 mg cap capsule Take 1 capsule by mouth once daily. Problem List As Of Date 09/06/2024 Noted Resolved Primary insomnia [F51.01] 05/11/2015 Weight gain [R63.5] 05/11/2015 Tobacco abuse disorder [Z72.0] 05/11/2015 Sebaceous cyst [L72.3] 05/25/2015 Vitamin D deficiency [E55.9] 04/21/2017 Mixed hyperlipidemia [E78.2] 2018 Encounter for screening for lung cancer [Z12.2] 04/08/2019 Pulmonary emphysema (HCC) [J43.9] 08/30/2019 Hypertension [I10] 08/15/2022 Encounter Status:Closed by STEVO ALSTONUSEMalcolm on 10/07/24[facility] 08-15-[facility]24 History of Present illness Narrative* Deepak Rivers MD - 08/15/2024 12:00 PM EST Chief Complaint Patient presents with: 6 Month Exam Immunizations: Flu vaccination HPI Adrianna Barney is a 64 year old female who presents here today for a 6 month follow up. Continues to still smoke, not interested in quitting at this time. Insomnia: Chronic insomnia. Currently taking Ambien CR 12.5 mg 1 tab at bedtime. Sleep varies nightly. Denies any side effects with use of medication. HTN: Not controlled over the past several visits. Denies monitoring her blood pressure at home. Denies any symptoms of chest pain, sob, or dizziness. On current regimen of Amlodipine 10 mg once daily, Losartan 100 mg once daily and HCTZ 25 mg once daily. Lipids: Admits to not watching her diet as closely as she should. No formal exercise, but does a lot of activities. Currently taking Zocor 20 mg once daily. Tolerating without side effects. Emphysema: using Albuterol inhaler prn. Past medical history, appointments, medications, allergies reviewed. Previous Medical History PAST MEDICAL HISTORY Diagnosis Date Hyperlipidemia Insomnia Previous Surgical History PAST SURGICAL HISTORY Procedure Laterality Date DELIVERY ONLY x 3 CHOLECYSTECTOMY HX REM LESIO TRUNK,ARM,LEG 1.1 -2.0CM Right 06/09/15 Exc. right scapular angle cyst Family History FAMILY HISTORY Problem Relation Age of Onset Heart Mother Diabetes Brother Patient Allergies ALLERGIES No Known Allergies Current Medications Current Outpatient Medications on File Prior to Visit Medication Sig Zolpidem (AMBIEN CR) 12.5 mg CR tablet Take 1 tablet by mouth at bedtime as needed for up to 90 days. hydroCHLOROthiazide 25 mg tablet Take 1 tablet by mouth once daily. losartan (COZAAR) 100 mg tablet Take 1 tablet by mouth once daily. amLODIPine (NORVASC) 10 mg tablet Take 1 tablet by mouth once daily. albuterol HFA (PROAIR HFA) 90 mcg/actuation inhaler Inhale 2 Puffs as instructed every 4 hours as needed for wheezing/shortness of breath. simvastatin (ZOCOR) 20 mg tablet Take 1 tablet by mouth daily at bedtime. cholecalciferol, vitamin D3, (VITAMIN D3) 4,000 unit cap 1 po daily coenzyme Q10 (COENZYME Q-10) 100 mg cap capsule Take 1 capsule by mouth once daily. No current facility-administered medications on file prior to visit. Social History Social History Tobacco Use Smoking status: Every Day Current packs/day: 1.00 Average packs/day: 1 pack/day for 37.0 years (37.0 ttl pk-yrs) Types: Cigarettes Smokeless tobacco: Never Tobacco comments: about 16 cigs per day Vaping Use Vaping status: Never Used Substance Use Topics Alcohol use: No Drug use: No EXAM: BP 138/88 Pulse 78 Resp 16 Wt 98.8 kg (217 lb 13 oz) LMP 02/25/2012 BMI 35.21 kg/m General Appearance: Well appearing, alert, in no acute distress, well-hydrated, well nourished. andOverweight. Lungs: Lungs clear to auscultation. No wheezing, rhonchi, rales.. Heart: RRR without murmur, gallop, or rubs. No ectopy. Health Maintenance List Spirometry Never done HIV Screening Never done BP Controlled (<130/80) Never done Alpha-1 Antitrypsin Deficiency Screening Never done Mammogram Screening due on 05/25/2016 Colorectal Cancer Screening due on 02/23/2020 Lung Cancer Screening due on 05/06/2020 Cervical Cancer Screening due on 07/23/2020 Influenza Vaccine(1) due on 04/17/2024 RSV Vaccine(1 - Risk 60-74 years 1-dose series) due on 02/08/2025 Covid-19 Vaccine( - 2023- season) due on 08/15/2025 Depression Screening due on 02/08/2025 Anxiety Screening due on 02/08/2025 Annual PCP Team Chronic Disease Visit due on 08/15/2025 Diabetes Screening due on 02/05/2027 DTaP,Tdap,Td Vaccine(2 - Td or Tdap) due on 02/12/2028 Lipid Screening due on 02/05/2029 Hepatitis C Screening Completed Shingrix Vaccine Completed Pneumococcal Vaccine: 50+ Completed Data reviewed None ASSESSMENT/PLAN: 1. Primary insomnia - ICD9: 307.42, ICD10: F51.01 (primary diagnosis) Continue current medications. 2. Tobacco abuse disorder - ICD9: 305.1, ICD10: Z72.0 - Cessation encouraged. - Physiologic and physical aspects of tobacco addiction as well as strategies for quitting were discussed. - Counseling was given focusing on the harmful effects of this addiction especially given the patient's medical condition(s) which will be worsened because of the chemicals in tobacco. 3. Mixed hyperlipidemia - ICD9: 272.2, ICD10: E78.2 - Control undetermined, due for labs 4. Pulmonary emphysema, unspecified emphysema type (HCC) - ICD9: 492.8, ICD10: J43.9 5. Hypertension, unspecified type - ICD9: 401.9, ICD10: I10 - Controlled - Continue current medications - Recommend home blood pressure monitoring, to bring results to next visit - Encouraged sodium restriction, DASH or Mediterranean diet - Recommend regular aerobic exercise 6. Need for influenza vaccination - ICD9: V04.81, ICD10: Z23 - INFLUENZA VACCINE, AGE 6MO-64YR, TRIVALENT (AFLURIA, FLULAVAL, FLUVIRIN, FLUZONE) 7. Elevated glucose - ICD9: 790.29, ICD10: R73.09 Check labs Notify of lab results Follow up in 6 months with fasting labs prior. I agree with the Chief Complaint, ROS, and Past Histories independently gathered by the clinical clerical and office support workers and the remaining scribed note accurately describes my personal service to the patient. Medical Decision Making: Problems: Moderate: 2+ stable chronic illnesses Data: Unique test(s) ordered: 3+ Risk: Moderate: Drug management Medical Decision Making Level: 4 - Moderate Deepak Rivers MD The documentation for this note was completed by Nancy Ramirez MA acting as scribe for Deepak Rivers MD. August 15, 2024 11:59 AM. Nancy Ramirez MA documented in this encounterSt[facility] NoteHNO ID: [id number] Author: DEEPAK RIVERS MD Service: ? Author Type: Physician Type: Progress Notes Filed: 08/15/2024 15:41 Note Text: Chief Complaint Patient presents with: 6 Month Exam Immunizations: Flu vaccination HPI Adrianna Barney is a 64 year old female who presents here today for a 6 month follow up. Continues to still smoke, not interested in quitting at this time. Insomnia: Chronic insomnia. Currently taking Ambien CR 12.5 mg 1 tab at bedtime. Sleep varies nightly. Denies any side effects with use of medication. HTN: Not controlled over the past several visits. Denies monitoring her blood pressure at home. Denies any symptoms of chest pain, sob, or dizziness. On current regimen of Amlodipine 10 mg once daily, Losartan 100 mg once daily and HCTZ 25 mg once daily. Lipids: Admits to not watching her diet as closely as she should. No formal exercise, but does a lot of activities. Currently taking Zocor 20 mg once daily. Tolerating without side effects. Emphysema: using Albuterol inhaler prn. Past medical history, appointments, medications, allergies reviewed. Previous Medical History PAST MEDICAL HISTORY Diagnosis Date Hyperlipidemia Insomnia Previous Surgical History PAST SURGICAL HISTORY Procedure Laterality Date DELIVERY ONLY x 3 CHOLECYSTECTOMY HX REM LESIO TRUNK,ARM,LEG 1.1 -2.0CM Right 06/09/15 Exc. right scapular angle cyst Family History FAMILY HISTORY Problem Relation Age of Onset Heart Mother Diabetes Brother Patient Allergies ALLERGIES No Known Allergies Current Medications Current Outpatient Medications on File Prior to Visit Medication Sig Zolpidem (AMBIEN CR) 12.5 mg CR tablet Take 1 tablet by mouth at bedtime as needed for up to 90 days. hydroCHLOROthiazide 25 mg tablet Take 1 tablet by mouth once daily. losartan (COZAAR) 100 mg tablet Take 1 tablet by mouth once daily. amLODIPine (NORVASC) 10 mg tablet Take 1 tablet by mouth once daily. albuterol HFA (PROAIR HFA) 90 mcg/actuation inhaler Inhale 2 Puffs as instructed every 4 hours as needed for wheezing/shortness of breath. simvastatin (ZOCOR) 20 mg tablet Take 1 tablet by mouth daily at bedtime. cholecalciferol, vitamin D3, (VITAMIN D3) 4,000 unit cap 1 po daily coenzyme Q10 (COENZYME Q-10) 100 mg cap capsule Take 1 capsule by mouth once daily. No current facility-administered medications on file prior to visit. Social History Social History Tobacco Use Smoking status: Every Day Current packs/day: 1.00 Average packs/day: 1 pack/day for 37.0 years (37.0 ttl pk-yrs) Types: Cigarettes Smokeless tobacco: Never Tobacco comments: about 16 cigs per day Vaping Use Vaping status: Never Used Substance Use Topics Alcohol use: No Drug use: No EXAM: BP 138/88 Pulse 78 Resp 16 Wt 98.8 kg (217 lb 13 oz) LMP 02/25/2012 BMI 35.21 kg/m? General Appearance: Well appearing, alert, in no acute distress, well-hydrated, well nourished. and Overweight. Lungs: Lungs clear to auscultation. No wheezing, rhonchi, rales.. Heart: RRR without murmur, gallop, or rubs. No ectopy. Health Maintenance List Spirometry Never done HIV Screening Never done BP Controlled (<130/80) Never done Alpha-1 Antitrypsin Deficiency Screening Never done Mammogram Screening due on 05/25/2016 Colorectal Cancer Screening due on 02/23/2020 Lung Cancer Screening due on 05/06/2020 Cervical Cancer Screening due on 07/23/2020 Influenza Vaccine(1) due on 04/17/2024 RSV Vaccine(1 - Risk 60-74 years 1-dose series) due on 02/08/2025 Covid-19 Vaccine( - 2023- season) due on 08/15/2025 Depression Screening due on 02/08/2025 Anxiety Screening due on 02/08/2025 Annual PCP Team Chronic Disease Visit due on 08/15/2025 Diabetes Screening due on 02/05/2027 DTaP,Tdap,Td Vaccine(2 - Td or Tdap) due on 02/12/2028 Lipid Screening due on 02/05/2029 Hepatitis C Screening Completed Shingrix Vaccine Completed Pneumococcal Vaccine: 50+ Completed Data reviewed None ASSESSMENT/PLAN: 1. Primary insomnia - ICD9: 307.42, ICD10: F51.01 (primary diagnosis) Continue current medications. 2. Tobacco abuse disorder - ICD9: 305.1, ICD10: Z72.0 - Cessation encouraged. - Physiologic and physical aspects of tobacco addiction as well as strategies for quitting were discussed. - Counseling was given focusing on the harmful effects of this addiction especially given the patient's medical condition(s) which will be worsened because of the chemicals in tobacco. 3. Mixed hyperlipidemia - ICD9: 272.2, ICD10: E78.2 - Control undetermined, due for labs 4. Pulmonary emphysema, unspecified emphysema type (HCC) - ICD9: 492.8, ICD10: J43.9 5. Hypertension, unspecified type - ICD9: 401.9, ICD10: I10 - Controlled - Continue current medications - Recommend home blood pressure monitoring, to bring results to next visit - Encouraged sodium restriction, DASH or Mediterranean (more content not included)...[facility]12-02-2024 Telephone encounter Note* Telephone Encounter - Nuzhat Estrada APRN.CNP - 07/18/2024 7:56 AM EST The following approved medication requests have been transmitted electronically. Requested Prescriptions Signed Prescriptions Disp Refills Zolpidem (AMBIEN CR) 12.5 mg CR tablet 30 tablet 2 Sig: Take 1 tablet by mouth at bedtime as needed for up to 90 days. Authorizing Provider: NUZHAT ESTRADA APRN.CNP PDMP website checked and validated. All prescriptions have been APPROPRIATELY filled. No suspiciousactivity was identified. 07/18/2024 [address] Nuzhat Estrada APRN.CNP [facility]12-02-2024 Miscellaneous Notes* Telephone Encounter - Nuzhat Estrada APRN.CNP - 07/18/2024 7:56 AM EST The following approved medication requests have been transmitted electronically. Requested Prescriptions Signed Prescriptions Disp Refills Zolpidem (AMBIEN CR) 12.5 mg CR tablet 30 tablet 2 Sig: Take 1 tablet by mouth at bedtime as needed for up to 90 days. Authorizing Provider: NUZHAT ESTRADA APRN.CNP PDMP website checked and validated. All prescriptions have been APPROPRIATELY filled. No suspiciousactivity was identified. 07/18/2024 by Nuzhat Estrada APRN.CNP * Telephone Encounter - Mimi Self LPN - 07/18/2024 7:23 AM EST Prescription Refill Information The patient has been identified by name and date of : Yes Caregiver verified no other encounters exist for this prescription request: Yes Caregiver confirmed with patient/requestor that no other refills are due, in the near future, with this provider at this time: Yes The last office visit in the department: 04/08/24 Does the patient have a future office visit with this provider/department: Yes 08/15/24 Requested Prescriptions Pending Prescriptions Disp Refills Zolpidem (AMBIEN CR) 12.5 mg CR tablet 30 tablet 2 Sig: Take 1 tablet by mouth at bedtime as needed for up to 90 days. Mimi Self LPN July 18, 2024 7:23 AM documented in this encounterSt. [facility] [facility] Telephone encounter Note * Telephone Encounter - Mimi Self LPN - 07/18/2024 7:23 AM EST Prescription Refill Information The patient has been identified by name and date of : Yes Caregiver verified no other encounters exist for this prescription request: Yes Caregiver confirmed with patient/requestor that no other refills are due, in the near future, with this provider at this time: Yes The last office visit in the department: 04/08/24 Does the patient have a future office visit with this provider/department: Yes 08/15/24 Requested Prescriptions Pending Prescriptions Disp Refills Zolpidem (AMBIEN CR) 12.5 mg CR tablet 30 tablet 2 Sig: Take 1 tablet by mouth at bedtime as needed for up to 90 days. Mimi Self LPN July 18, 2024 7:[address] [facility]09-20-2024 Telephone encounter Note* Telephone Encounter - Marleni Munguia LPN - 05/06/2024 12:48 PM EDT Faxed to [facility], patient notified. [facility]09-20-2024 Miscellaneous Notes* Telephone Encounter - Marleni Munguia LPN - 05/06/2024 12:48 PM EDT Faxed to [facility], patient notified. * Telephone Encounter - Nigel Viveros APRN.CNP - 05/06/2024 12:43 PM EDT Letter written. Can you fax to [facility] and let the patient know? Nigel Viveros APRN.CNP * Telephone Encounter - Jazmine Gordon RN - 05/05/2024 2:41 PM EDT Patient reports Dr. Rivers wrote Rx for her Ambien with quantity of 30 with 2 refills. Patient states her insurance will only allow a fill of 15 tablets at a time. States Dr. Rivers has senta letter in the past to [facility] authorizing 30 tablets to be filled and is asking if PCP office can send a new letter? Please call patient with update. Thank you. documented in this encounterSt. [facility]09-[facility] Telephone encounter Note * Telephone Encounter - Nigel Viveros APRN.CNP - 05/06/2024 12:43 PM EDT Letter written. Can you fax to [facility] and let the patient know? Nigel Viveros APRN.CNP [facility]09-19-2024 Telephone encounter Note* Telephone Encounter - Jazmine Gordon RN - 05/05/2024 2:41 PM EDT Patient reports Dr. Rivers wrote Rx for her Ambien with quantity of 30 with 2 refills. Patient states her insurance will only allow a fill of 15 tablets at a time. States Dr. Rivers has senta letter in the past to [facility] authorizing 30 tablets to be filled and is asking if PCP office can send a new letter? Please call patient with update. Thank you. [facility]08-30-2024 Telephone encounter Note* Telephone Encounter - Deepak Rivers MD - 04/15/2024 2:37 PM EDT OK to refill as ordered Deepak Rivers MD [facility]08-30-2024 Miscellaneous Notes* Telephone Encounter - eDepak Rivers MD - 04/15/2024 2:37 PM EDT OK to refill as ordered Deepak Rivers MD * Telephone Encounter - Jenniffer Mcclelland RN - 04/15/2024 1:08 PM EDT The patient has been identified by name and date of : Yes Caregiver verified no other encounters exist for this prescription request: Yes Caregiver confirmed with patient/requestor that no other refills are due, in the near future, with this provider at this time: Yes The last office visit in the department: 04/08/2024 Does the patient have a future office visit with this provider/department: Yes 08/15/2024 Requested Prescriptions Pending Prescriptions Disp Refills Zolpidem (AMBIEN CR) 12.5 mg CR tablet 30 tablet 2 Sig: Take 1 tablet by mouth at bedtime as needed for up to 90 days. Jenniffer Mcclelland RN April 15, 2024 1:09 PM documented in this encounterSt. [facility] Telephone encounter Note * Telephone Encounter - Jenniffer Mcclelland RN - 04/15/2024 1:08 PM EDT The patient has been identified by name and date of : Yes Caregiver verified no other encounters exist for this prescription request: Yes Caregiver confirmed with patient/requestor that no other refills are due, in the near future, with this provider at this time: Yes The last office visit in the department: 04/08/2024 Does the patient have a future office visit with this provider/department: Yes 08/15/2024 Requested Prescriptions Pending Prescriptions Disp Refills Zolpidem (AMBIEN CR) 12.5 mg CR tablet 30 tablet 2 Sig: Take 1 tablet by mouth at bedtime as needed for up to 90 days. Jenniffer Mcclelland RN April 15, 2024 1:[address] [facility]08-23-2024 Instructions* Patient Instructions* Nuzhat Estrada APRN.CNP - 04/08/2024 12:10 PM EDT Get repeat fasting labs completed prior to next visit Cologuard stool test will be mailed to house Continue to take all medication as prescribed Work on eating a low carb diet and get some form of exercise. Due for Mammogram Recommend smoking cessation Follow up as scheduled Health Promotion: - Eat healthy -- go to [employer]gov to get started - Have a yearly physical - Mammogram yearly after age 40 - Get at least 30 minutes of physical activity daily - Get at least 7 to 8 hours of sleep each night - Reach and maintain a healthy weight - Get help to quit or don't start smoking - Limit alcohol use to one drink or less - Do not use illegal drugs or misuse prescription drugs - Wear a helmet when riding a bike and wear protective gear for sports - Wear a seatbelt in cars and not text and drive - Wear sunscreen documented in this encounterSt. [facility] History of Present illness Narrative* Nuzhat Estrada APRN.CNP - 04/08/2024 11:00 AM EDT This is a 63 year old female who presents today with: Patient presents with: Wellness HISTORY OF PRESENT ILLNESS: Adrianna Barney is a 63 year old female. Patient presents with: Wellness Wellness Diet: Eating a well balanced diet. Exercise: Trying to stay busy at home, watches grandchildren. Vision: Had exam, wearing glasses. Dental: Had exam. Sleep: 4-8 hours, varies. Mood: Denies any increased sadness, anxiety, or SI/HI. Tobacco - 1 PPD, not interested in quitting at this time. Insomnia - Chronic. Takes Ambien CR 12.5 mg at night. Medication working well, refers she will haverandom nights where she cannot fall asleep. HTN - Taking amlodipine 10 mg, Losartan 100 mg once daily and HCTZ 25 mg daily. Not currently checking blood pressure at home. Denies chest pain, palpitations, dizziness, or edema. Lipids - Denies watching her diet but does a lot of activities. Pt currently taking Zocor 20 mg diaily. Mammogram: Due For Mammogram Pap: Has been a long time since last pap, denies wanting to continue screening. Colonoscopy: Willing to have cologuard completed PAST MEDICAL HISTORY: PAST MEDICAL HISTORY No date: Hyperlipidemia No date: Insomnia PAST SURGICAL HISTORY No date: DELIVERY ONLY Comment: x 3 No date: CHOLECYSTECTOMY HX 06/09/15: REM LESIO TRUNK,ARM,LEG 1.1 -2.0CM; Right Comment: Exc. right scapular angle cyst ALLERGIES Patient has no known allergies. MEDICATIONS Current Outpatient Medications Medication Sig hydroCHLOROthiazide 25 mg tablet Take 1 tablet by mouth once daily. losartan (COZAAR) 100 mg tablet Take 1 tablet by mouth once daily. Zolpidem (AMBIEN CR) 12.5 mg CR tablet Take 1 tablet by mouth at bedtime as needed for up to 90 days. amLODIPine (NORVASC) 10 mg tablet Take 1 tablet by mouth once daily. albuterol HFA (PROAIR HFA) 90 mcg/actuation inhaler Inhale 2 Puffs as instructed every 4 hours as needed for wheezing/shortness of breath. simvastatin (ZOCOR) 20 mg tablet Take 1 tablet by mouth daily at bedtime. cholecalciferol, vitamin D3, (VITAMIN D3) 4,000 unit cap 1 po daily coenzyme Q10 (COENZYME Q-10) 100 mg cap capsule Take 1 capsule by mouth once daily. No current facility-administered medications for this visit. FAMILY HISTORY Problem Relation Age of Onset Heart Mother Diabetes Brother Social History Tobacco Use Smoking status: Every Day Current packs/day: 1.00 Average packs/day: 1 pack/day for 37.0 years (37.0 ttl pk-yrs) Types: Cigarettes Smokeless tobacco: Never Tobacco comments: about 16 cigs per day Vaping Use Vaping status: Never Used Substance Use Topics Alcohol use: No Drug use: No REVIEW OF SYSTEMS GENERAL: No weight loss, malaise or fevers/chills HEENT: Negative for frequent or significant headaches, No changes in hearing or vision. NECK: Negative for lumps, goiter, pain and significant neck swelling RESPIRATORY: Negative for cough, hemoptysis, wheezing, dyspnea or shortness of breath CARDIOVASCULAR: Negative for chest pain, leg swelling, orthopnea, or palpitations GI: No nausea, vomiting, or diarrhea/constipation. No hematochezia/melena. No heartburn or reflux symptoms. : No history of dysuria, frequency or incontinence MUSCULOSKELETAL: Negative for joint pain or swelling. SKIN: Negative for lesions, rash, and itching ENDOCRINE: Negative for cold or heat intolerance, polyuria, polydipsia and goiter NEURO: No history of headaches, syncope, paralysis, seizures or tremors MOOD: Negative for depression, anxiety, or suicidal ideation. EXAM: BP 140/82 Pulse 100 Resp 16 Wt 102 kg (224 lb 13.9 oz) LMP 02/25/2012 SpO2 96% BMI 36.36 kg/m PHYSICAL EXAM: General Appearance: Well appearing, alert, in no acute distress, well-hydrated, well nourished. Skin: Skin color, texture, turgor normal, no suspicious rashes or lesions. Head: Normocephalic, no masses, lesions, tenderness or abnormalities. Eyes: Anicteric sclera. Pupils are equally round and reactive to light. Extraocular movements are intact. Ears: External ears normal, canals clear. TMs pearly chávez. Neck: Supple, no adenopathy; thyroid symmetric, normal size, no bruits. Lungs: Lungs clear to auscultation. No wheezing, rhonchi, rales. Heart: RRR without murmur, gallop, or rubs. No ectopy. Abdomen: Normal abdominal exam, Abdomen soft, non-tender. Bowel sounds normal. No masses, organomegaly. Extremities: No deformities, edema, skin discoloration, clubbing or cyanosis. Good capillary refill. Musculoskeletal: No joint swelling, deformity, or tenderness. Peripheral Pulses: Normal, Capillary refill <2secs, strong peripheral pulses, Pulses palpable. Neurologic: Gait normal. Reflexes normal and symmetric. Sensation grossly intact. Mood: Pleasant, engaged, good eye contact. ASSESSMENT/PLAN: 1. Wellness examination - ICD9: V70.0, ICD10: Z00.00 (primary diagnosis) - Counseled on healthy diet and regular exercise - Discussed need and benefit for weight loss. BMI 36.36 kg/(m^2) - Colorectal cancer screening recommended - agrees to Cologuard - Mammogram ordered - exam recommended once yearly - Smoking cessation encouraged; discussed risks to health and quitting strategies. Patient is not ready to quit - Follow up for annual exam in one year 2. Hypertension, unspecified type - ICD9: 401.9, ICD10: I10 - Uncontrolled - Continue current medications - Recommend home blood pressure monitoring, to bring results to next visit - Encouraged sodium restriction, DASH or Mediterranean diet - Recommend regular aerobic exercise - Discussed need for and benefit of weight loss. BMI 36.36 kg/(m^2) 3. Mixed hyperlipidemia - ICD9: 272.2, ICD10: E78.2 - Control undetermined, due for labs - Continue current medications - Counseled on healthy diet and regular exercise - Discussed need for and benefit of weight loss. BMI 36.36 kg/(m^2) 4. Primary insomnia - ICD9: 307.42, ICD10: F51.01 - Stable, continue take current medication. 5. Elevated glucose - ICD9: 790.29, ICD10: R73.09 - A1c has gone up, stressed importance of making lifestyle changes at home. - Get repeat labs prior to next visit. 6. Tobacco abuse disorder - ICD9: 305.1, ICD10: Z72.0 - Cessation encouraged. - Physiologic and physical aspects of tobacco addiction as well as strategies for quitting were discussed. - Counseling was given focusing on the harmful effects of this addiction especially given the patient's medical condition(s) which will be worsened because of the chemicals in tobacco. 7. Screening for colon cancer - ICD9: V76.51, ICD10: Z12.11 - COLOGUARD Follow-up as scheduled or sooner as needed. Discussed treatment plan and patient voices understanding. Patient's questions answered appropriately. Medications and potential side effects were discussed and patient voices understanding. Nuzhat Estrada APRN.SPINAL SURGEON This note was partially generated using Dragon voice recognition system. Note was reviewed for accuracy. There may be minor misspellings or grammar miscues with Bunch voice recognition. documented in this encounterSt. Mary[facility] NoteHNO ID: [id number] Author: NUZHAT ESTRADA APRN.LAURITA Service: ? Author Type: Nurse Practitioner Type: Progress Notes Filed: 04/08/2024 13:06 Note Text: This is a 63 year old female who presents today with: Patient presents with: Wellness HISTORY OF PRESENT ILLNESS: Adrianna Barney is a 63 year old female. Patient presents with: Wellness Wellness Diet: Eating a well balanced diet. Exercise: Trying to stay busy at home, watches grandchildren. Vision: Had exam, wearing glasses. Dental: Had exam. Sleep: 4-8 hours, varies. Mood: Denies any increased sadness, anxiety, or SI/HI. Tobacco - 1 PPD, not interested in quitting at this time. Insomnia - Chronic. Takes Ambien CR 12.5 mg at night. Medication working well, refers she will have random nights where she cannot fall asleep. HTN - Taking amlodipine 10 mg, Losartan 100 mg once daily and HCTZ 25 mg daily. Not currently checking blood pressure at home. Denies chest pain, palpitations, dizziness, or edema. Lipids - Denies watching her diet but does a lot of activities. Pt currently taking Zocor 20 mg diaily. Mammogram: Due For Mammogram Pap: Has been a long time since last pap, denies wanting to continue screening. Colonoscopy: Willing to have cologuard completed PAST MEDICAL HISTORY: PAST MEDICAL HISTORY No date: Hyperlipidemia No date: Insomnia PAST SURGICAL HISTORY No date: DELIVERY ONLY Comment: x 3 No date: CHOLECYSTECTOMY HX 06/09/15: REM LESIO TRUNK,ARM,LEG 1.1 -2.0CM; Right Comment: Exc. right scapular angle cyst ALLERGIES Patient has no known allergies. MEDICATIONS Current Outpatient Medications Medication Sig hydroCHLOROthiazide 25 mg tablet Take 1 tablet by mouth once daily. losartan (COZAAR) 100 mg tablet Take 1 tablet by mouth once daily. Zolpidem (AMBIEN CR) 12.5 mg CR tablet Take 1 tablet by mouth at bedtime as needed for up to 90 days. amLODIPine (NORVASC) 10 mg tablet Take 1 tablet by mouth once daily. albuterol HFA (PROAIR HFA) 90 mcg/actuation inhaler Inhale 2 Puffs as instructed every 4 hours as needed for wheezing/shortness of breath. simvastatin (ZOCOR) 20 mg tablet Take 1 tablet by mouth daily at bedtime. cholecalciferol, vitamin D3, (VITAMIN D3) 4,000 unit cap 1 po daily coenzyme Q10 (COENZYME Q-10) 100 mg cap capsule Take 1 capsule by mouth once daily. No current facility-administered medications for this visit. FAMILY HISTORY Problem Relation Age of Onset Heart Mother Diabetes Brother Social History Tobacco Use Smoking status: Every Day Current packs/day: 1.00 Average packs/day: 1 pack/day for 37.0 years (37.0 ttl pk-yrs) Types: Cigarettes Smokeless tobacco: Never Tobacco comments: about 16 cigs per day Vaping Use Vaping status: Never Used Substance Use Topics Alcohol use: No Drug use: No REVIEW OF SYSTEMS GENERAL: No weight loss, malaise or fevers/chills HEENT: Negative for frequent or significant headaches, No changes in hearing or vision. NECK: Negative for lumps, goiter, pain and significant neck swelling RESPIRATORY: Negative for cough, hemoptysis, wheezing, dyspnea or shortness of breath CARDIOVASCULAR: Negative for chest pain, leg swelling, orthopnea, or palpitations GI: No nausea, vomiting, or diarrhea/constipation. No hematochezia/melena. No heartburn or reflux symptoms. : No history of dysuria, frequency or incontinence MUSCULOSKELETAL: Negative for joint pain or swelling. SKIN: Negative for lesions, rash, and itching ENDOCRINE: Negative for cold or heat intolerance, polyuria, polydipsia and goiter NEURO: No history of headaches, syncope, paralysis, seizures or tremors MOOD: Negative for depression, anxiety, or suicidal ideation. EXAM: BP 140/82 Pulse 100 Resp 16 Wt 102 kg (224 lb 13.9 oz) LMP 02/25/2012 SpO2 96% BMI 36.36 kg/m? PHYSICAL EXAM: General Appearance: Well appearing, alert, in no acute distress, well-hydrated, well nourished. Skin: Skin color, texture, turgor normal, no suspicious rashes or lesions. Head: Normocephalic, no masses, lesions, tenderness or abnormalities. Eyes: Anicteric sclera. Pupils are equally round and reactive to light. Extraocular movements are intact. Ears: External ears normal, canals clear. TMs pearly chávez. Neck: Supple, no adenopathy; thyroid symmetric, normal size, no bruits. Lungs: Lungs clear to auscultation. No wheezing, rhonchi, rales. Heart: RRR without murmur, gallop, or rubs. No ectopy. Abdomen: Normal abdominal exam, Abdomen soft, non-tender. Bowel sounds normal. No masses, organomegaly. Extremities: No deformities, edema, skin discoloration, clubbing or cyanosis. Good capillary refill. Musculoskeletal: No joint swelling, deformity, or tenderness. Peripheral Pulses: Normal, Capillary refill <2secs, strong peripheral pulses, Pulses palpable. Neurologic: Gait normal. Reflexes normal and symmetric. Sensation grossly intact. Mood: Pleasant, en (more content not included)...[facility] 02-09-2024 History of Present illness Narrative* Deepak Rivers MD - 02/09/2024 11:00 AM EDT Chief Complaint Patient presents with: F/U 6 Month HPI Adrianna Barney is a 63 year old female who presents here today for a 6 month follow up. Here with her spouse for routine visit. Has concerts lined up this summer to go see. [facility] New one about 2 weeks ago. Taking care of her step-father at home. Tobacco - Still smoking about the same. Not interested in quitting at this time. Insomnia - Chronic. Takes Ambien CR 12.5 mg at night. Denies issues with medication or side effects. Denies feeling drowsy. Reports she barely slept last night, maybe two hours. HTN - Has been uncontrolled over the past several visits. Today states her BP is elevated due to not sleeping well last night. Denies checking her BP at home or having symptoms of chest pain, sob or dizziness. At previous visit Amlodipine was increased to 10 mg daily. Pt also taking Losartan 100 mgonce daily and HCTZ 25 mg daily. Lipids - Denies watching her diet but does a lot of activities. Pt currently taking Zocor 20 mg diaily. HM - Behavioral Health Screening completed, negative. Mammogram ordered. Declines Covid vaccine. Declines RSV vaccine. Behavioral Health Screening PHQ-2 Score: 0 (Lower risk for depression) MARY-2 Score: 0 (Lower risk for anxiety) Recommendation: no further intervention at this time Past medical history, appointments, medications, allergies reviewed. Previous Medical History PAST MEDICAL HISTORY Diagnosis Date Hyperlipidemia Insomnia Previous Surgical History PAST SURGICAL HISTORY Procedure Laterality Date DELIVERY ONLY x 3 CHOLECYSTECTOMY HX REM LESIO TRUNK,ARM,LEG 1.1 -2.0CM Right 06/09/15 Exc. right scapular angle cyst Family History FAMILY HISTORY Problem Relation Age of Onset Heart Mother Diabetes Brother Patient Allergies ALLERGIES No Known Allergies Current Medications Current Outpatient Medications on File Prior to Visit Medication Sig amLODIPine (NORVASC) 10 mg tablet Take 1 tablet by mouth once daily. albuterol HFA (PROAIR HFA) 90 mcg/actuation inhaler Inhale 2 Puffs as instructed every 4 hours as needed for wheezing/shortness of breath. simvastatin (ZOCOR) 20 mg tablet Take 1 tablet by mouth daily at bedtime. Zolpidem (AMBIEN CR) 12.5 mg CR tablet Take 1 tablet by mouth at bedtime as needed for up to 90 days. losartan (COZAAR) 100 mg tablet Take 1 tablet by mouth once daily. hydroCHLOROthiazide 25 mg tablet Take 1 tablet by mouth once daily. cholecalciferol, vitamin D3, (VITAMIN D3) 4,000 unit cap 1 po daily coenzyme Q10 (COENZYME Q-10) 100 mg cap capsule Take 1 capsule by mouth once daily. No current facility-administered medications on file prior to visit. Social History Social History Tobacco Use Smoking status: Every Day Packs/day: 1.00 Years: 37.00 Additional pack years: 0.00 Total pack years: 37.00 Types: Cigarettes Smokeless tobacco: Never Tobacco comments: about 16 cigs per day Vaping Use Vaping Use: Never used Substance Use Topics Alcohol use: No Drug use: No EXAM: BP 168/110 Pulse 88 Resp 18 Wt 101.2 kg (223 lb) LMP 02/25/2012 BMI 36.05 kg/m General Appearance: Well appearing, alert, in no acute distress, well-hydrated, well nourished. andObese. Lungs: Lungs clear to auscultation. No wheezing, rhonchi, rales.. Heart: RRR without murmur, gallop, or rubs. No ectopy. Health Maintenance List Spirometry Never done BP Controlled (<130/80) Never done Alpha-1 Antitrypsin Deficiency Screening Never done Mammogram Screening due on 05/25/2016 Lung Cancer Screening due on 05/06/2020 RSV Vaccine(1 - 1-dose 60+ series) Never done Covid-19 Vaccine( season) Never done Behavioral Health Screening Never done Colorectal Cancer Screening due on 02/13/2024 Cervical Cancer Screening due on 08/07/2024 HIV Screening due on 08/07/2024 Annual PCP Team Chronic Disease Visit due on 08/07/2024 Diabetes Screening due on 02/05/2027 DTaP,Tdap,Td Vaccine(2 - Td or Tdap) due on 02/12/2028 Lipid Screening due on 02/05/2029 Influenza Vaccine Completed Hepatitis C Screening Completed Shingrix Vaccine Completed Pneumococcal Vaccine Completed Data reviewed Appointment on 02/06/2024 Component Date Value Protein, Total 02/06/2024 6.8 Albumin 02/06/2024 4.3 Calcium, Total 02/06/2024 9.5 Bilirubin, Total 02/06/2024 0.3 Alkaline Phosphatase 02/06/2024 101 AST 02/06/2024 19 ALT 02/06/2024 16 Glucose 02/06/2024 84 BUN 02/06/2024 12 Creatinine 02/06/2024 0.71 Sodium 02/06/2024 142 Potassium 02/06/2024 4.3 Chloride 02/06/2024 104 CO2 02/06/2024 27 Anion Gap 02/06/2024 11 Estimated Glomerular Tarun* 02/06/2024 96 Cholesterol, Total 02/06/2024 171 Triglyceride 02/06/2024 242 (H) HDL Cholesterol 02/06/2024 50 Non HDL Cholesterol 02/06/2024 121 Fasting Time 02/06/2024 12 VLDL Cholesterol 02/06/2024 48 (H) TC:HDL Ratio 02/06/2024 3.42 LDL Cholesterol 02/06/2024 73 LDL:HDL Ratio 02/06/2024 1.46 Hemoglobin A1C 02/06/2024 6.0 (H) Estimated Average Glucose 02/06/2024 126 ASSESSMENT/PLAN: 1. Primary insomnia - ICD9: 307.42, ICD10: F51.01 (primary diagnosis) - Stable - Continue current medication regimen. 2. Hypertension, unspecified type - ICD9: 401.9, ICD10: I10 - Uncontrolled - related to not sleeping well. - Continue current medications - Recommend home blood pressure monitoring, to bring results to next visit - Encouraged sodium restriction, DASH or Mediterranean diet - Recommend regular aerobic exercise 3. Mixed hyperlipidemia - ICD9: 272.2, ICD10: E78.2 - Trigs worsening, overall stable - Counseled on healthy diet and regular exercise - Continue current medication regimen. 4. Elevated glucose - ICD9: 790.29, ICD10: R73.09 - Slight elevated from previous lab - Continue watching diet and staying active. 5. Tobacco abuse disorder - ICD9: 305.1, ICD10: Z72.0 - Cessation encouraged. - Physiologic and physical aspects of tobacco addiction as well as strategies for quitting were discussed. - Counseling was given focusing on the harmful effects of this addiction especially given the patient's medical condition(s) which will be worsened because of the chemicals in tobacco. 6 mo f/u with labs. Wants to schedule Wellness in 3 months. I agree with the Chief Complaint, ROS, and Past Histories independently gathered by the clinical clerical and office support workers and the remaining scribed note accurately describes my personal service to the patient. Medical Decision Making: Problems: Moderate: 2+ stable chronic illnesses Data: Unique test result(s) reviewed: 3+ Unique test(s) ordered: 3+ Risk: Moderate: Drug management Medical Decision Making Level: 4 - Moderate Deepak Rivers MD The documentation for this note was completed by Solange Martinez MA acting as scribe for Deepak Rivers MD. February 09, 2024 10:45 AM. Solange Martinez MA documented in this encounterSt[facility] [facility] NoteHNO ID: [id number] Author: DEEPAK RIVERS MD Service: ? Author Type: Physician Type: Progress Notes Filed: 02/09/2024 11:30 Note Text: Chief Complaint Patient presents with: F/U 6 Month HPI Adrianna Barney is a 63 year old female who presents here today for a 6 month follow up. Here with her spouse for routine visit. Has concerts lined up this summer to go see. Taking care of grandchildren, have 8 total. New one about 2 weeks ago. Taking care of her step-father at home. Tobacco - Still smoking about the same. Not interested in quitting at this time. Insomnia - Chronic. Takes Ambien CR 12.5 mg at night. Denies issues with medication or side effects. Denies feeling drowsy. Reports she barely slept last night, maybe two hours. HTN - Has been uncontrolled over the past several visits. Today states her BP is elevated due to not sleeping well last night. Denies checking her BP at home or having symptoms of chest pain, sob or dizziness. At previous visit Amlodipine was increased to 10 mg daily. Pt also taking Losartan 100 mg once daily and HCTZ 25 mg daily. Lipids - Denies watching her diet but does a lot of activities. Pt currently taking Zocor 20 mg diaily. HM - Behavioral Health Screening completed, negative. Mammogram ordered. Declines Covid vaccine. Declines RSV vaccine. Behavioral Health Screening PHQ-2 Score: 0 (Lower risk for depression) MARY-2 Score: 0 (Lower risk for anxiety) Recommendation: no further intervention at this time Past medical history, appointments, medications, allergies reviewed. Previous Medical History PAST MEDICAL HISTORY Diagnosis Date Hyperlipidemia Insomnia Previous Surgical History PAST SURGICAL HISTORY Procedure Laterality Date DELIVERY ONLY x 3 CHOLECYSTECTOMY HX REM LESIO TRUNK,ARM,LEG 1.1 -2.0CM Right 06/09/15 Exc. right scapular angle cyst Family History FAMILY HISTORY Problem Relation Age of Onset Heart Mother Diabetes Brother Patient Allergies ALLERGIES No Known Allergies Current Medications Current Outpatient Medications on File Prior to Visit Medication Sig amLODIPine (NORVASC) 10 mg tablet Take 1 tablet by mouth once daily. albuterol HFA (PROAIR HFA) 90 mcg/actuation inhaler Inhale 2 Puffs as instructed every 4 hours as needed for wheezing/shortness of breath. simvastatin (ZOCOR) 20 mg tablet Take 1 tablet by mouth daily at bedtime. Zolpidem (AMBIEN CR) 12.5 mg CR tablet Take 1 tablet by mouth at bedtime as needed for up to 90 days. losartan (COZAAR) 100 mg tablet Take 1 tablet by mouth once daily. hydroCHLOROthiazide 25 mg tablet Take 1 tablet by mouth once daily. cholecalciferol, vitamin D3, (VITAMIN D3) 4,000 unit cap 1 po daily coenzyme Q10 (COENZYME Q-10) 100 mg cap capsule Take 1 capsule by mouth once daily. No current facility-administered medications on file prior to visit. Social History Social History Tobacco Use Smoking status: Every Day Packs/day: 1.00 Years: 37.00 Additional pack years: 0.00 Total pack years: 37.00 Types: Cigarettes Smokeless tobacco: Never Tobacco comments: about 16 cigs per day Vaping Use Vaping Use: Never used Substance Use Topics Alcohol use: No Drug use: No EXAM: BP 168/110 Pulse 88 Resp 18 Wt 101.2 kg (223 lb) LMP 02/25/2012 BMI 36.05 kg/m? General Appearance: Well appearing, alert, in no acute distress, well-hydrated, well nourished. and Obese. Lungs: Lungs clear to auscultation. No wheezing, rhonchi, rales.. Heart: RRR without murmur, gallop, or rubs. No ectopy. Health Maintenance List Spirometry Never done BP Controlled (<130/80) Never done Alpha-1 Antitrypsin Deficiency Screening Never done Mammogram Screening due on 05/25/2016 Lung Cancer Screening due on 05/06/2020 RSV Vaccine(1 - 1-dose 60+ series) Never done Covid-19 Vaccine( season) Never done Behavioral Health Screening Never done Colorectal Cancer Screening due on 02/13/2024 Cervical Cancer Screening due on 08/07/2024 HIV Screening due on 08/07/2024 Annual PCP Team Chronic Disease Visit due on 08/07/2024 Diabetes Screening due on 02/05/2027 DTaP,Tdap,Td Vaccine(2 - Td or Tdap) due on 02/12/2028 Lipid Screening due on 02/05/2029 Influenza Vaccine Completed Hepatitis C Screening Completed Shingrix Vaccine Completed Pneumococcal Vaccine Completed Data reviewed Appointment on 02/06/2024 Component Date Value Protein, Total 02/06/2024 6.8 Albumin 02/06/2024 4.3 Calcium, Total 02/06/2024 9.5 Bilirubin, Total 02/06/2024 0.3 Alkaline Phosphatase 02/06/2024 101 AST 02/06/2024 19 ALT 02/06/2024 16 Glucose 02/06/2024 84 BUN 02/06/2024 12 Creatinine 02/06/2024 0.71 Sodium 02/06/2024 142 Potassium 02/06/2024 4.3 Chloride 02/06/2024 104 CO2 02/06/2024 27 Anion Gap 02/06/2024 11 Estimated Glomerular Tarun* 02/06/2024 96 Cholesterol, Total 02/06/2024 171 Triglyceride 02/06/2024 242 (H) HDL Felicity (more content not included)...[facility]06-24-2024 Telephone encounter Note* Telephone Encounter - Nigel Viveros APRN.CNP - 02/08/2024 8:07 AM EDT PDMP website checked and validated. All prescriptions have been APPROPRIATELY filled. No suspiciousactivity was identified. 02/08/2024 by Nigel Viveros APRN.CNP The following approved medication requests have been transmitted electronically. Requested Prescriptions Signed Prescriptions Disp Refills Zolpidem (AMBIEN CR) 12.5 mg CR tablet 30 tablet 2 Sig: Take 1 tablet by mouth at bedtime as needed for up to 90 days. Authorizing Provider: NIGEL VIVEROS APRN.CNP [facility]06-24-2024 Miscellaneous Notes* Telephone Encounter - Nigel Viveros APRN.CNP - 02/08/2024 8:07 AM EDT [facility] All prescriptions have been APPROPRIATELY filled. No suspiciousactivity was identified. 02/08/2024 by Nigel Viveros APRN.CNP The following approved medication requests have been transmitted electronically. Requested Prescriptions Signed Prescriptions Disp Refills Zolpidem (AMBIEN CR) 12.5 mg CR tablet 30 tablet 2 Sig: Take 1 tablet by mouth at bedtime as needed for up to 90 days. Authorizing Provider: NIGEL VIVEROS APRN.CNP * Telephone Encounter - Mimi Self LPN - 02/08/2024 7:47 AM EDT JULIANNE-08/07/24 Labs-08/07/24 NOV-02/09/24 Mimi Self LPN documented in this encounterSt. [facility] [facility]06-[facility] Telephone encounter Note * Telephone Encounter - Mimi Self LPN - 02/08/2024 7:47 AM EDT JULIANNE-08/07/24 Labs-08/07/24Jun-02/09/[address] [facility]04-15-2024 Miscellaneous Notes* Telephone Encounter - Nigel Viveros APRN.CNP - 11/30/2023 10:23 AM EDT The following approved medication requests have been transmitted electronically. Requested Prescriptions Pending Prescriptions Disp Refills simvastatin (ZOCOR) 20 mg tablet 90 tablet 3 Sig: Take 1 tablet by mouth daily at bedtime. Nigel Viveros APRN.SPINAL SURGEON * Telephone Encounter - Nancy Ramirez MA - 11/30/2023 9:48 AM EDT Patient has been identified by name and date of : Yes, Provider Deepak Rivers MD Date November 30, 2023 Time 9:48 AM Patient phones for refill(s): Requested Prescriptions Pending Prescriptions Disp Refills simvastatin (ZOCOR) 20 mg tablet 90 tablet 3 Sig: Take 1 tablet by mouth daily at bedtime. Date of last office visit in primary care: 08/07/2023 Date of next office visit in primary care: 02/09/2024 Please advise. Thank you. Nancy Ramirez MA. documented in this encounterSt. [facility]04-[facility]-20[facility] Miscellaneous Notes* Telephone Encounter - Nigel Viveros APRN.CNP - 11/30/2023 10:23 AM EDT The following approved medication requests have been transmitted electronically. Requested Prescriptions Pending Prescriptions Disp Refills albuterol HFA (PROAIR HFA) 90 mcg/actuation inhaler 1 Each 3 Sig: Inhale 2 Puffs as instructed every 4 hours as needed for wheezing/shortness of breath. Nigel Viveros APRN.CNP * Telephone Encounter - Nancy Ramirez MA - 11/30/2023 9:57 AM EDT Patient has been identified by name and date of : Yes, Provider Deepak Rivers MD Date November 30, 2023 Time: 9:57 AM Patient phones for refill(s): Requested Prescriptions Pending Prescriptions Disp Refills albuterol HFA (PROAIR HFA) 90 mcg/actuation inhaler 1 Each 3 Sig: Inhale 2 Puffs as instructed every 4 hours as needed for wheezing/shortness of breath. Date of last office visit in primary care: 08/07/2023 Date of next office visit in primary care: 02/09/24 Please advise. Thank you. Nancy Ramirez MA. documented in this encounterSt. [facility]04-[facility]-2024 Miscellaneous Notes* Telephone Encounter - Nigel Viveros APRN.CNP - 11/30/2023 10:23 AM EDT The following approved medication requests have been transmitted electronically. Requested Prescriptions Pending Prescriptions Disp Refills amLODIPine (NORVASC) 10 mg tablet 30 tablet 11 Sig: Take 1 tablet by mouth once daily. Nigel Viveros APRN.CNP * Telephone Encounter - Nancy Ramirez MA - 11/30/2023 9:56 AM EDT Patient has been identified by name and date of : Yes, Provider Deepak Rivers MD Date November 30, 2023 Time 9:56 AM Patient phones for refill(s): Requested Prescriptions Pending Prescriptions Disp Refills amLODIPine (NORVASC) 10 mg tablet 30 tablet 11 Sig: Take 1 tablet by mouth once daily. Date of last office visit in primary care: 08/07/2023 Date of next office visit in primary care: 11/28/2023 Please advise. Thank you. Nancy Ramirez MA. documented in this encounterSt. [facility] [facility]04-[facility]-20[facility] Miscellaneous Notes* Telephone Encounter - Carol Angel LPN - 11/17/2023 11:49 AM EDT Spoke with pt and information listed below given. Pt verbalizes understanding. Carol Angel LPN * Telephone Encounter - Deepak Rivers MD - 11/17/2023 11:44 AM EDT OK to refill as ordered Deepak Rivers MD * Telephone Encounter - Myron Bower LPN - 11/17/2023 11:21 AM EDT Patient has been identified by name and date of : Yes Patient phones for refill(s): Requested Prescriptions Pending Prescriptions Disp Refills Zolpidem (AMBIEN CR) 12.5 mg CR tablet 30 tablet 2 Sig: Take 1 tablet by mouth at bedtime as needed for up to 90 days. Date of last office visit in primary care: 08/07/2023 Date of next office visit in primary care: 02/09/2024 Please advise. Thank you. Myron Bower LPN. documented in this encounterSt. [facility]11[facility] History of Present illness Narrative* Price Rahman APRN.SPINAL SURGEON - 06/17/2023 3:20 PM EDT Subjective HPI Nontoxic-appearing female presents urgent care chief complaint right ear pain. Duration of symptomstoday. Associated symptoms right ear pain. Did take some ibuprofen this did help. States ear patient started shortly after flying. Has not used any otic drops. No ear trauma. States is slightly muffled. Describes it as pressure. No loss of hearing. No otorrhea. Denies any fever body aches chills productive cough chest pain shortness of breath pleuritic pain hemoptysis nausea vomiting abdominal pain change in bowel or bladder habits. Past medical history prescription medication use and allergiesreviewed. .Patient presents with: Ear Pain: right x this am PAST MEDICAL HISTORY Diagnosis Date Hyperlipidemia Insomnia PAST SURGICAL HISTORY Procedure Laterality Date DELIVERY ONLY x 3 CHOLECYSTECTOMY HX REM LESIO TRUNK,ARM,LEG 1.1 -2.0CM Right 06/09/15 Exc. right scapular angle cyst ALLERGIES Patient has no known allergies. MEDICATIONS Zolpidem (AMBIEN CR) 12.5 mg CR tablet Take 1 tablet by mouth at bedtime as needed for up to 90 days. losartan (COZAAR) 100 mg tablet Take 1 tablet by mouth once daily. hydroCHLOROthiazide 25 mg tablet Take 1 tablet by mouth once daily. amLODIPine (NORVASC) 5 mg tablet Take 1 tablet by mouth once daily. simvastatin (ZOCOR) 20 mg tablet TAKE 1 TABLET BY MOUTH EVERYDAY AT BEDTIME albuterol HFA (PROAIR HFA) 90 mcg/actuation inhaler Inhale 2 Puffs as instructed every 4 hours as needed for wheezing/shortness of breath. cholecalciferol, vitamin D3, (VITAMIN D3) 4,000 unit cap 1 po daily coenzyme Q10 (COENZYME Q-10) 100 mg cap capsule Take 1 capsule by mouth once daily. FAMILY HISTORY Problem Relation Age of Onset Heart Mother Diabetes Brother Social History Tobacco Use Smoking status: Every Day Packs/day: 1.00 Years: 37.00 Additional pack years: 0.00 Total pack years: 37.00 Types: Cigarettes Smokeless tobacco: Never Tobacco comments: about 16 cigs per day Vaping Use Vaping Use: Never used Substance Use Topics Alcohol use: No Drug use: No BP 152/88 Pulse 88 Temp 36.4 C (97.6 F) Resp 16 Wt 99.8 kg (220 lb) LMP 02/25/2012 [id number]% BMI 35.57 kg/m Review of Systems Constitutional: Negative for chills, fever and malaise/fatigue. HENT: Positive for ear pain. Negative for congestion, ear discharge, sinus pain and sore throat. Eyes: Negative for blurred vision, pain, discharge and redness. Respiratory: Negative for cough, hemoptysis, sputum production, shortness of breath, wheezing and stridor. Cardiovascular: Negative for chest pain. Gastrointestinal: Negative for abdominal pain, diarrhea, nausea and vomiting. Musculoskeletal: Negative for myalgias. Skin: Negative for itching and rash. Neurological: Negative for dizziness and headaches. Objective Physical Exam Constitutional: General: She is not in acute distress. Appearance: She is not diaphoretic. HENT: Head: Normocephalic. Jaw: No trismus, tenderness, swelling or pain on movement. Right Ear: Hearing, ear canal and external ear normal. No mastoid tenderness. Tympanic membrane is not erythematous or bulging. Left Ear: Tympanic membrane, ear canal and external ear normal. No mastoid tenderness. Mouth/Throat: Mouth: Mucous membranes are moist. Pharynx: Oropharynx is clear. Uvula midline. No pharyngeal swelling, oropharyngeal exudate, posterior oropharyngeal erythema or uvula swelling. Eyes: Conjunctiva/sclera: Conjunctivae normal. Pupils: Pupils are equal, round, and reactive to light. Cardiovascular: Rate and Rhythm: Normal rate and regular rhythm. Heart sounds: Normal heart sounds. Pulmonary: Effort: Pulmonary effort is normal. No tachypnea, accessory muscle usage or respiratory distress. Breath sounds: Normal breath sounds. No stridor. No wheezing, rhonchi or rales. Abdominal: General: There is no distension. Palpations: Abdomen is soft. Tenderness: There is no abdominal tenderness. There is no guarding or rebound. Musculoskeletal: Cervical back: Normal range of motion and neck supple. No edema, erythema, rigidity or tenderness. No pain with movement. Normal range of motion. Lymphadenopathy: Cervical: No cervical adenopathy. Skin: General: Skin is warm and dry. Neurological: Mental Status: She is alert and oriented to person, place, and time. ASSESSMENT/PLAN: 1. Eustachian tube dysfunction, bilateral - ICD9: 381.81, ICD10: H69.93 Clear fluid noted behind bilateral TMs. There was a slight hue of redness on right TM. No purulent drainage or evidence of bacterial infection. Treat conservative at this time. Patient was educated on supportive therapies. Patient will follow up with primary care provider as needed. Patient was instructed to immediately proceed to emergency room for any new, worsening, or symptoms lasting longer than anticipated. The patient's clinical presentation is otherwise unremarkable at this time. Based on exam and clinical finding, the patient is stable for discharge. Plan of care was discussed with patient. Patient verbalizes understanding and agrees to plan of care. This note was generated using [employer]unch software. It may contain errors in wording, punctuation, or spelling. Price Rahman APRN.LAURITA documented in this encounterSt. [facility]10[facility] Miscellaneous Notes* Telephone Encounter - Carol Angel LPN - 06/04/2023 8:52 AM EDT Spoke with pt and information listed below given. Pt verbalizes understanding. Carol Angel LPN * Telephone Encounter - Deepak Rivers MD - 06/04/2023 8:43 AM EDT OK to refill as ordered Deepak Rivers MD * Telephone Encounter - Carol Angel LPN - 06/03/2023 9:51 AM EDT Patient has been identified by name and date of : Yes, Provider Dr. Rivers Date 06/03/23 Time 9:52 am Patient phones for refill(s): Requested Prescriptions Pending Prescriptions Disp Refills Zolpidem (AMBIEN CR) 12.5 mg CR tablet 30 tablet 2 Sig: Take 1 tablet by mouth at bedtime as needed for up to 90 days. Date of last office visit in primary care: 04/24/2023 Date of next office visit in primary care: 08/07/2023 Last 2 Encounter Wt Readings: Date: Wt: 04/24/2023 100.7 kg (222 lb) 03/13/2023 100.5 kg (221 lb 9.6 oz) Previous labs/tests for medication: Not applicable Please advise. Thank you. Carol Angel LPN. documented in this encounterSt. [facility] [facility] Instructions* Patient Instructions* Nuzhat Estrada APRN.CNP - 04/24/2023 10:08 AM EDT Get repeat fasting labs completed prior to next visit. Continue to take all medications as prescribed. Work on eating a low carb diet, increase protein, veggies, and get some form of exercise. Due for Pap and mammogram. May schedule any time. May get flu vaccine. Follow up in 6 months. Health Promotion: - Eat healthy -- go to [employer]gov to get started - Have a yearly physical - Mammogram yearly after age 40 - Get at least 30 minutes of physical activity daily - Get at least 7 to 8 hours of sleep each night - Reach and maintain a healthy weight - Get help to quit or don't start smoking - Limit alcohol use to one drink or less - Do not use illegal drugs or misuse prescription drugs - Wear a helmet when riding a bike and wear protective gear for sports - Wear a seatbelt in cars and not text and drive - Wear sunscreen documented in this encounterSt. [facility] [place] [facility] History of Present illness Narrative* Nuzhat Estrada APRN.CNP - 04/24/2023 9:40 AM EDT This is a 62 year old female who presents today with: Patient presents with: Wellness HISTORY OF PRESENT ILLNESS: Adrianna Barney is a 62 year old female. Patient presents with: Wellness Here in the office for wellness exam. Diet: Reports eating well balanced diet Exercise: weekly yard work Vision: Sees eye doctor yearly, has glasses Dental: Does not see dentist routinely Sleep: Gets about 5 hours a night Mood: Denies increased sadness, anxiety, SI/HI HTN: Taking losartan 100 mg, hydrochlorothiazide 25 mg, and Norvasc 5 mg daily. Not checking blood pressure at home. Denies chest pain, palpitations, dizziness, or edema Lipids: Taking Zocor 20 mg daily. Not watching diet Insomnia: Taking Ambien CR 12.5 mg at bedtime. Stable Mammogram: Last mammogram in 2014, due at this time, Not wanting to proceed at this time Pap: Last Pap 2009, normal, HPV negative, Does not have RELAY REPAIRER, Consult placed Colonoscopy: Has never had completed, patient refuses to have procedure done. Has done stool sample,agreeable to doing Cologuard, order placed. Vaccines:Pt gets yearly flu vaccine, up to date on tDap PAST MEDICAL HISTORY: PAST MEDICAL HISTORY Diagnosis Date Hyperlipidemia Insomnia PAST SURGICAL HISTORY Procedure Laterality Date DELIVERY ONLY x 3 CHOLECYSTECTOMY HX REM LESIO TRUNK,ARM,LEG 1.1 -2.0CM Right 06/09/15 Exc. right scapular angle cyst ALLERGIES Patient has no known allergies. MEDICATIONS Current Outpatient Medications Medication Sig Zolpidem (AMBIEN CR) 12.5 mg CR tablet Take 1 tablet by mouth at bedtime as needed for up to 90 days. losartan (COZAAR) 100 mg tablet Take 1 tablet by mouth once daily. hydroCHLOROthiazide 25 mg tablet Take 1 tablet by mouth once daily. amLODIPine (NORVASC) 5 mg tablet Take 1 tablet by mouth once daily. simvastatin (ZOCOR) 20 mg tablet TAKE 1 TABLET BY MOUTH EVERYDAY AT BEDTIME albuterol HFA (PROAIR HFA) 90 mcg/actuation inhaler Inhale 2 Puffs as instructed every 4 hours as needed for wheezing/shortness of breath. cholecalciferol, vitamin D3, (VITAMIN D3) 4,000 unit cap 1 po daily coenzyme Q10 (COENZYME Q-10) 100 mg cap capsule Take 1 capsule by mouth once daily. No current facility-administered medications for this visit. FAMILY HISTORY Problem Relation Age of Onset Heart Mother Diabetes Brother Social History Tobacco Use Smoking status: Every Day Packs/day: 1.00 Years: 37.00 Additional pack years: 0.00 Total pack years: 37.00 Types: Cigarettes Smokeless tobacco: Never Tobacco comments: about 16 cigs per day Vaping Use Vaping Use: Never used Substance Use Topics Alcohol use: No Drug use: No REVIEW OF SYSTEMS GENERAL: No weight loss, malaise or fevers/chills HEENT: Negative for frequent or significant headaches, No changes in hearing or vision. NECK: Negative for lumps, goiter, pain and significant neck swelling RESPIRATORY: Negative for cough, hemoptysis, wheezing, dyspnea or shortness of breath CARDIOVASCULAR: Negative for chest pain, leg swelling, orthopnea, or palpitations GI: No nausea, vomiting, or diarrhea/constipation. No hematochezia/melena. No heartburn or reflux symptoms. : No history of dysuria, frequency or incontinence MUSCULOSKELETAL: Negative for joint pain or swelling. SKIN: Negative for lesions, rash, and itching ENDOCRINE: Negative for cold or heat intolerance, polyuria, polydipsia and goiter NEURO: No history of headaches, syncope, paralysis, seizures or tremors MOOD: Negative for depression, anxiety, or suicidal ideation. EXAM: [facility] 02/25/2012 PHYSICAL EXAM: General Appearance: Well appearing, alert, in no acute distress, well-hydrated, well nourished. Skin: Skin color, texture, turgor normal, no suspicious rashes or lesions. Head: Normocephalic, no masses, lesions, tenderness or abnormalities. Eyes: Anicteric sclera. Pupils are equally round and reactive to light. Extraocular movements are intact. Ears: External ears normal, canals clear. TMs pearly chávez. Neck: Supple, no adenopathy; thyroid symmetric, normal size, no bruits. Lungs: Lungs clear to auscultation. No wheezing, rhonchi, rales.. Heart: RRR without murmur, gallop, or rubs. No ectopy. Abdomen: Normal abdominal exam, Abdomen soft, non-tender. Bowel sounds normal. No masses, organomegaly. Musculoskeletal: No joint swelling, deformity, or tenderness. Neurologic: Gait normal. Reflexes normal and symmetric. Sensation grossly intact. Mood: Pleasant, engaged, good eye contact. ASSESSMENT/PLAN: 1. Wellness examination - ICD9: V70.0, ICD10: Z00.00 (primary diagnosis) - Counseled on healthy diet and regular exercise 2. Hypertension, unspecified type - ICD9: 401.9, ICD10: I10 - Controlled - Continue current medications, BP elevated, just took medication prior to office visit - Recommend home blood pressure monitoring, to bring results to next visit - Encouraged sodium restriction, DASH or Mediterranean diet - Recommend regular aerobic exercise - Discussed need for and benefit of weight loss. BMI 35.89 kg/(m^2) 3. Mixed hyperlipidemia - ICD9: 272.2, ICD10: E78.2 - Controlled - Counseled on healthy diet and regular exercise - Discussed need for and benefit of weight loss. BMI 35.89 kg/(m^2) 4. Primary insomnia - ICD9: 307.42, ICD10: F51.01 - Stable, will continue current medications 5. Tobacco abuse disorder - ICD9: 305.1, ICD10: Z72.0 - Cessation encouraged. - Physiologic and physical aspects of tobacco addiction as well as strategies for quitting were discussed. - Counseling was given focusing on the harmful effects of this addiction especially given the patient's medical condition(s) which will be worsened because of the chemicals in tobacco. 6. Women's annual routine gynecological examination - ICD9: V72.31, ICD10: Z01.419 - Set up for mammogram, yearly mammogram recommended - Encouraged monthly BSE - Colon cancer screening reviewed and colonoscopy recommended - Follow up for annual exam in one year. - CONSULT TO GYNECOLOGY 7. Screening for colon cancer - ICD9: V76.51, ICD10: Z12.11 - COLOGUARD follow up in 6 months or sooner as needed Discussed treatment plan and patient voices understanding. Patient's questions answered appropriately. Medications and potential side effects were discussed and patient voices understanding. Nuzhat Estrada APRN.LAURITA This note was partially generated using Bunch voice recognition system. Note was reviewed for accuracy. There may be minor misspellings or grammar miscues with [employer] voice recognition. documented in this encounterSt. [facility] [place] [facility]07[facility]28-[facility] History of Present illness Narrative* Megan Hernandez MA - 03/13/2023 9:56 AM EDT BP Manual readin/98 Pulse: 85 LEFT arm regular cuff BP Makenzie Average: 141/80 Pulse: 85 RIGHT arm LARGE cuff 1. 145/77 Pulse: 80 2. 135/81 Pulse: 85 3. 146/78 Pulse: 85 4. 143/80 Pulse: 85 BP MAKENZIE AVERAGE: 141/80 Pulse: 85 * Nigel Viveros APRN.LAURITA - 03/13/2023 9:40 AM EDT Chief Complaint Patient presents with: F/U 1 month: BP HPI Ardianna Barney is a 62 year old female who presents here today for Chronic Medical Conditions. For 1 month follow-up for blood pressure. Was in the office to see PCP on 02/12. BP 180/90. Was prescribed amlodipine. Also taking losartan, hydrochlorothiazide. Does not check blood pressure at home.No side effects from medication. 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 She has not chest pain, shortness of breath or passing out. Past medical history, appointments, medications, allergies reviewed. EXAM: BP 141/80 Pulse 85 Resp 16 Wt 100.5 kg (221 lb 9.6 oz) LMP 02/25/2012 SpO2 97% BMI 35.77 kg/m General Appearance: Well appearing, alert, in no acute distress, well-hydrated, well nourished.. Lungs: Lungs clear to auscultation. No wheezing, rhonchi, rales.. Heart: RRR without murmur, gallop, or rubs. No ectopy. ASSESSMENT/PLAN: 1. Hypertension, unspecified type - ICD9: 401.9, ICD10: I10 - Improving control - Continue current medications - Recommend home blood pressure monitoring, to bring results to next visit - Encouraged sodium restriction, DASH or Mediterranean diet - Recommend regular aerobic exercise Nigel Viveros APRN.CNP RTO in April, sooner if needed. This note was partly generated using [employer] voice recognition dictation and may contain some misspelled or inaccurate words missed on review. documented in this encounterSt. [facility] [facility]06-26-2023 Miscellaneous Notes* Telephone Encounter - Solange Martinez Ma - 02/09/2023 1:02 PM EDT Pinshape message sent to pt notifying her that fasting labs have been ordered for her to complete prior to appt if possible. Solange Martinez Ma * Telephone Encounter - Nigel Viveros APRN.CNP - 02/09/2023 12:03 PM EDT I placed some labs for her to get prior to seeing Dr. Rivers if it is possible. Nigel Viveros APRN.CNP * Telephone Encounter - CANDY Massey - 02/07/2023 9:16 AM EDT Patient came in for lab work before appointment on 02/12/2023. No orders were placed. Please adviseand call patient to let them know. documented in this encounterSt. [facility] [place] [facility]05-08-2023 Miscellaneous Notes* Telephone Encounter - Deepak Rivers MD - 12/22/2022 12:18 PM EDT OK to refill as ordered Deepak Rivers MD * Telephone Encounter - Deepak Rivers MD - 12/22/2022 12:18 PM EDT OK to refill as ordered Deepak Rivers MD * Telephone Encounter - Nancy Rmairez Ma - 12/22/2022 9:20 AM EDT Last office visit: 08/15/22 F/u scheduled: 02/12/23 Last refilled on: Ambien #30 with 2 refill on 10/01/22 Nancy Ramirez Ma documented in this encounterSt. Mary[facility] [place] [facility]05-08-2023 Miscellaneous Notes* Telephone Encounter - Nancy Ramirez Ma - 12/22/2022 11:24 AM EDT See refill request from 12/21/22 documented in this encounterSt. [facility] [place] [facility]03-14-2023 Miscellaneous Notes* Telephone Encounter - Nigel Viveros APRN.CNP - 10/28/2022 7:46 AM EDT The following approved medication requests have been transmitted electronically. Requested Prescriptions Pending Prescriptions Disp Refills simvastatin (ZOCOR) 20 mg tablet [Pharmacy Med Name: SIMVASTATIN 20 MG TABLET] 90 tablet 3 Sig: TAKE 1 TABLET BY MOUTH EVERYDAY AT BEDTIME Nigel Viveros APRN.CNP * Telephone Encounter - Carol Angel LPN - 10/28/2022 7:32 AM EDT Patient has been identified by name and date of : Yes, Provider Dr. Rivers Date 10/28/22 Time 7:33 am Pharmacy phones for refill(s): Requested Prescriptions Pending Prescriptions Disp Refills simvastatin (ZOCOR) 20 mg tablet [Pharmacy Med Name: SIMVASTATIN 20 MG TABLET] 90 tablet 3 Sig: TAKE 1 TABLET BY MOUTH EVERYDAY AT BEDTIME Date of last office visit in primary care: 08/15/22 next 02/12/23 Last 2 Encounter Wt Readings: Date: Wt: 08/15/2022 98 kg (216 lb) 04/28/2022 98.9 kg (218 lb) Previous labs/tests for medication: Cholesterol: HDL Cholesterol (mg/dL) Date Value 08/15/2022 41 05/11/2021 55 LDL Cholesterol (mg/dL) Date Value 08/15/2022 74 05/11/2021 91 ALT (U/L) Date Value 08/15/2022 21 05/11/2021 13 Non HDL Cholesterol (mg/dL) Date Value 08/15/2022 96 05/11/2021 110 Thank you. Carol Angel LPN documented in this encounterSt. Mary[facility] [facility]12[facility]30-20[facility] History of Present illness Narrative* Deepak Rivers MD - 08/15/2022 9:00 AM EST Chief Complaint Patient presents with: 6 Month Exam HPI Adrianna Barney is a 62 year old female who presents here today for 6 month follow up. Here with . Stays busy with grand children No bowel, Gi, or urinary issues. HTN: Taking HCTZ 25 mg daily and Losartan 10 mg daily. Does not check BP at home. Denies any chest pains, dizziness, or SOB. Lipid/Glucose: Denies much exercise, states she tries to watch diet. Is on Zocor 20 mg daily, tolerating well. Emphysema: Doing well, feels her SOB is stable. Uses Albuterol inhaler prn. Smoker, not interested in quitting. Insomnia: Taking Ambien CR 12.5 mg at bedtime. Is sleeping much better, using Ambien every night. Sleeps well with this, does not sleep well when she does not take it. Past medical history, appointments, medications, allergies reviewed. Previous Medical History PAST MEDICAL HISTORY Diagnosis Date Hyperlipidemia Insomnia Previous Surgical History PAST SURGICAL HISTORY Procedure Laterality Date DELIVERY ONLY x 3 CHOLECYSTECTOMY HX REM LESIO TRUNK,ARM,LEG 1.1 -2.0CM Right 06/09/15 Exc. right scapular angle cyst Family History FAMILY HISTORY Problem Relation Age of Onset Heart Mother Diabetes Brother Patient Allergies ALLERGIES No Known Allergies Current Medications Current Outpatient Medications on File Prior to Visit Medication Sig Zolpidem (AMBIEN CR) 12.5 mg CR tablet Take 1 tablet by mouth at bedtime as needed for up to 90 days. albuterol HFA (PROAIR HFA) 90 mcg/actuation inhaler Inhale 2 Puffs as instructed every 4 hours as needed for wheezing/shortness of breath. hydroCHLOROthiazide (HYDRODIURIL, ESIDRIX) 25 mg tablet Take 1 tablet by mouth once daily. simvastatin (ZOCOR) 20 mg tablet Take 1 tablet by mouth daily at bedtime. losartan (COZAAR) 100 mg tablet Take 1 tablet by mouth once daily. cholecalciferol, vitamin D3, (VITAMIN D3) 4,000 unit cap 1 po daily coenzyme Q10 (COENZYME Q-10) 100 mg cap capsule Take 1 capsule by mouth once daily. No current facility-administered medications on file prior to visit. Social History Social History Tobacco Use Smoking status: Every Day Packs/day: 1.00 Years: 37.00 Pack years: 37.00 Types: Cigarettes Smokeless tobacco: Never Tobacco comments: about 16 cigs per day Vaping Use Vaping Use: Never used Substance Use Topics Alcohol use: No Drug use: No EXAM: BP 138/88 Pulse 82 Resp 16 Wt 98 kg (216 lb) LMP 02/25/2012 SpO2 96% BMI 34.86 kg/m General Appearance: Well appearing, alert, in no acute distress, well-hydrated, well nourished.. Lungs: Lungs clear to auscultation. No wheezing, rhonchi, rales.. Heart: RRR without murmur, gallop, or rubs. No ectopy. Health Maintenance List COVID-19 VACCINE(1) Never done BP CONTROLLED (<130/80) Never done ALPHA-1 ANTITRYPSIN DEFICIENCY SCREENING Never done MAMMOGRAM due on 05/25/2016 PNEUMOCOCCAL(2 - PCV) due on 06/22/2016 COLORECTAL CANCER SCREENING due on 02/23/2020 DEPRESSION ASSESSMENT Never done PAP TESTING due on 07/23/2022 HPV TESTING due on 07/23/2022 SPIROMETRY due on 04/28/2023 LUNG CANCER SCREENING due on 04/28/2023 HIV SCREENING due on 04/28/2023 ANNUAL PCP TEAM CHRONIC DISEASE VISIT due on 04/28/2023 DIABETES SCREEN due on 02/08/2025 LIPID SCREEN due on 02/08/2027 DTAP,TDAP,TD(2 - Td or Tdap) due on 02/12/2028 INFLUENZA Completed HEPATITIS C SCREENING Completed SHINGRIX VACCINE Completed Data reviewed none ASSESSMENT/PLAN: 1. Hypertension, unspecified type - ICD9: 401.9, ICD10: I10 (primary diagnosis) - good control - Continue current medication(s) - Recommended regular aerobic exercise. - Recommend home blood pressure monitoring, to bring results in on next visit - Goal of BP <140/90 2. Screening for colon cancer - ICD9: V76.51, ICD10: Z12.11 - FECAL OCCULT BLOOD TEST 3. Primary insomnia - ICD9: 307.42, ICD10: F51.01 Continue Ambien 4. Mixed hyperlipidemia - ICD9: 272.2, ICD10: E78.2 - to be determined upon return of lab results - Continue current medication. 5. Tobacco abuse disorder - ICD9: 305.1, ICD10: Z72.0 - Cessation encouraged. - Physiologic and physical aspects of tobacco addiction as well as strategies for quitting were discussed. - Counseling was given focusing on the harmful effects of this addiction especially given the patient's medical condition(s) which will be worsened because of the chemicals in tobacco. She will get labs today; notify of results Follow up in 6 months I agree with the Chief Complaint, ROS, and Past Histories independently gathered by the clinical clerical and office support workers and the remaining scribed note accurately describes my personal service to the patient. Medical Decision Making: Problems: Moderate: 2+ stable chronic illnesses Risk: Moderate: Drug management Medical Decision Making Level: 4 - Moderate Deepak Rivers MD The documentation for this note was completed by Nancy Ramirez Ma acting as scribe for Deepak Rivers MD. August 15, 2022 9:28 AM. Nancy Ramirez Ma documented in this encounterSt. Mary'[facility] [facility]11[facility]21-2022 Miscellaneous Notes* Telephone Encounter - Nigel Viveros APRN.CNP - 07/07/2022 11:38 AM EST Sent PDMP website checked and validated. All prescriptions have been APPROPRIATELY filled. No suspiciousactivity was identified. 07/07/2022 by Nigel Viveros APRN.LAURITA The following approved medication requests have been transmitted electronically. Requested Prescriptions Signed Prescriptions Disp Refills Zolpidem (AMBIEN CR) 12.5 mg CR tablet 30 tablet 2 Sig: Take 1 tablet by mouth at bedtime as needed for up to 90 days. Authorizing Provider: NIGEL VIVEROS APRN.LAURITA * Telephone Encounter - Mimi Self LPN - 07/07/2022 11:20 AM EST Patient phones requesting refills as follows: Requested Prescriptions Pending Prescriptions Disp Refills Zolpidem (AMBIEN CR) 12.5 mg CR tablet 30 tablet 2 Sig: Take 1 tablet by mouth at bedtime as needed for up to 90 days. LO)V-05/03/22 Labs-02/08/22 NOV-08/15/22 med filled 04/03/22 Please review and advise. Mimi Self LPN documented in this encounterSt. Mary'[facility] [facility]09-12-20[facility] Instructions* Patient Instructions* Nuzhat Estrada APRN.LAURITA - 04/28/2022 2:10 PM EDT 1.) Get repeat labs completed prior to next office visit. 2.) Continue to eat a well balanced diet. Try to increase protein, veggies, and get some form of exercise. 3.) Continue to take all medication as prescribed. 4.) You were given Flu vaccine. 5.) Follow up in 1 year for wellness exam Health Promotion: - Eat healthy -- go to [employer]gov to get started - Have a yearly physical - Mammogram yearly after age 40 - Get at least 30 minutes of physical activity daily - Get at least 7 to 8 hours of sleep each night - Reach and maintain a healthy weight - Get help to quit or don't start smoking - Limit alcohol use to one drink or less - Do not use illegal drugs or misuse prescription drugs - Wear a helmet when riding a bike and wear protective gear for sports - Wear a seatbelt in cars and not text and drive - Wear sunscreen documented in this encounterSt. Mary'[facility] [place] [facility]09[facility] History of Present illness Narrative* Nuzhat Estrada APRN.CNP - 04/28/2022 2:00 PM EDT This is a 62 year old female who presents today with: Patient presents with: Wellness: work insurance HISTORY OF PRESENT ILLNESS: Adrianna Barney is a 62 year old female. Patient presents with: Wellness: work insurance Here in the office for wellness exam. Will need paperwork completed for husbands employer. Diet: Eating well balanced diet. Exercise: Stay active with grandchildren. Vision: Had exam, wears glasses. Dental: Had exam, no difficulties. Sleep: Sleeping about 8 hours per night. Mood: Denies any increased sadness, anxiety, or SI/Hi. HTN: Hydrochlorothiazide 25 mg and losartan 100 mg daily. Not checking blood pressure at home. Denies chest pain, palpitations, dizziness, or edema. Lipids: Taking simvastatin 20 mg daily. Watching diet for the most part. Sleep: Taking Ambien 12.5 mg daily. Medication working well. Emphysema: Smoking 1 PPD. Symptoms well controlled, uses albuterol as needed. No desire to quit. Mammogram/Pap: Due for mammogram this year. Last Pap in 2009, would like to exit from screenings atthis time. Colonoscopy: Has never had colonoscopy completed. Will to have occult stool testing completed. Vaccines: Would like Flu Vaccine today. PAST MEDICAL HISTORY: PAST MEDICAL HISTORY Diagnosis Date Hyperlipidemia Insomnia PAST SURGICAL HISTORY Procedure Laterality Date DELIVERY ONLY x 3 CHOLECYSTECTOMY HX REM LESIO TRUNK,ARM,LEG 1.1 -2.0CM Right 06/09/15 Exc. right scapular angle cyst ALLERGIES Patient has no known allergies. MEDICATIONS Current Outpatient Medications Medication Sig Zolpidem (AMBIEN CR) 12.5 mg CR tablet Take 1 tablet by mouth at bedtime as needed for up to 90 days. hydroCHLOROthiazide (HYDRODIURIL, ESIDRIX) 25 mg tablet Take 1 tablet by mouth once daily. simvastatin (ZOCOR) 20 mg tablet Take 1 tablet by mouth daily at bedtime. losartan (COZAAR) 100 mg tablet Take 1 tablet by mouth once daily. cholecalciferol, vitamin D3, (VITAMIN D3) 4,000 unit cap 1 po daily coenzyme Q10 (COENZYME Q-10) 100 mg cap capsule Take 1 capsule by mouth once daily. No current facility-administered medications for this visit. FAMILY HISTORY Problem Relation Age of Onset Heart Mother Diabetes Brother Social History Tobacco Use Smoking status: Every Day Packs/day: 1.00 Years: 37.00 Pack years: 37.00 Types: Cigarettes Smokeless tobacco: Never Tobacco comments: about 16 cigs per day Vaping Use Vaping Use: Never used Substance Use Topics Alcohol use: No Drug use: No REVIEW OF SYSTEMS GENERAL: No weight loss, malaise or fevers/chills HEENT: Negative for frequent or significant headaches, No changes in hearing or vision. NECK: Negative for lumps, goiter, pain and significant neck swelling RESPIRATORY: Negative for cough, hemoptysis, wheezing, dyspnea or shortness of breath CARDIOVASCULAR: Negative for chest pain, leg swelling, orthopnea, or palpitations GI: No nausea, vomiting, or diarrhea/constipation. No hematochezia/melena. No heartburn or reflux symptoms. : No history of dysuria, frequency or incontinence MUSCULOSKELETAL: Negative for joint pain or swelling. SKIN: Negative for lesions, rash, and itching ENDOCRINE: Negative for cold or heat intolerance, polyuria, polydipsia and goiter NEURO: No history of headaches, syncope, paralysis, seizures or tremors MOOD: Negative for depression, anxiety, or suicidal ideation. EXAM: BP 138/84 Pulse 85 Resp 16 Wt 98.9 kg (218 lb) LMP 02/25/2012 SpO2 97% BMI 35.19 kg/m PHYSICAL EXAM: General Appearance: Well appearing, alert, in no acute distress, well-hydrated, well nourished. Skin: Skin color, texture, turgor normal, no suspicious rashes or lesions. Head: Normocephalic, no masses, lesions, tenderness or abnormalities. Eyes: Anicteric sclera. Pupils are equally round and reactive to light. Extraocular movements are intact. Ears: External ears normal, canals clear. TM's pearly chávez. Neck: Supple, no adenopathy; thyroid symmetric, normal size, no bruits. Lungs: Lungs clear to auscultation. No wheezing, rhonchi, rales. Heart: RRR without murmur, gallop, or rubs. No ectopy. Abdomen: Normal abdominal exam, Abdomen soft, non-tender. Bowel sounds normal. No masses, organomegaly. Extremities: No deformities, edema, skin discoloration, clubbing or cyanosis. Good capillary refill. Musculoskeletal: No joint swelling, deformity, or tenderness. Peripheral Pulses: Normal, Capillary refill <2secs, strong peripheral pulses, Pulses palpable. Neurologic: Gait normal. Reflexes normal and symmetric. Sensation grossly intact. Mood: Pleasant, good eye contact, engaged. ASSESSMENT/PLAN: 1. Wellness examination - ICD9: V70.0, ICD10: Z00.00 (primary diagnosis) - Counseled on healthy diet and regular exercise - Calcium intake with supplements or by diet of 1000 mg/day for under 50, 1200- 1500 mg/day for 50+ - Discussed need and benefit for weight loss. BMI 35.19 kg/(m^2) - Colorectal cancer screening recommended - agrees to iFOBT testing - Smoking cessation encouraged; discussed risks to health and quitting strategies. Patient is not ready to quit - Depression screening tool completed and reviewed with patient. Based on score and interview, patient is not at risk for depression and recommended no further intervention at this time. - Follow up for annual exam in one year 2. Pulmonary emphysema, unspecified emphysema type (HCC) - ICD9: 492.8, ICD10: J43.9 - Refill provided. - Recommend smoking cessation. - ALBUTEROL SULFATE HFA 90 MCG/ACTUATION AEROSOL INHALER 3. Hypertension, unspecified type - ICD9: 401.9, ICD10: I10 - suboptimal control - Continue current medication(s) - Recommended regular aerobic exercise. - Recommend home blood pressure monitoring, to bring results in on next visit - Goal of BP <130/80 4. Mixed hyperlipidemia - ICD9: 272.2, ICD10: E78.2 - suboptimal control - Continue current medication. 5. Primary insomnia - ICD9: 307.42, ICD10: F51.01 - Continue to use Ambien as prescribed. 6. Screening for colon cancer - ICD9: V76.51, ICD10: Z12.11 - FECAL OCCULT BLOOD TEST 7. Encounter for immunization - ICD9: V03.89, ICD10: Z23 - VIS provided. - INFLUENZA VACCINE QUADRIVALENT 6 MO - 64 YRS IM Follow up in 1 year or sooner as needed. Discussed treatment plan and patient voices understanding. Patient's questions answered appropriately. Medications and potential side effects were discussed and patient voices understanding. Nuzhat Estrada APRN.SPINAL SURGEON This note was partially generated using [employer] voice recognition system. Note was reviewed for accuracy. There may be minor misspellings or grammar miscues with [employer] Doctor[employer] voice recognition. documented in this encounterSt. [facility] Miscellaneous Notes* Telephone Encounter - Deepak Rivers MD - 04/03/2022 11:04 AM EDT OK to refill as ordered Deepak Rivers MD * Telephone Encounter - Mimi Self LPN - 04/03/2022 7:53 AM EDT Patient phones requesting refills as follows: Requested Prescriptions Pending Prescriptions Disp Refills Zolpidem (AMBIEN CR) 12.5 mg CR tablet 30 tablet 2 Sig: Take 1 tablet by mouth at bedtime as needed for up to 90 days. JULIANNE-02/13/22 Labs-02/08/22 NOV-05/06/22 med filled 01/28/22 Please review and advise. Mimi Sefl LPN documented in this encounterSt. Mary'[facility]06[facility] History of Present illness Narrative* Deepak Rivers MD - 02/13/2022 9:00 AM EDT Chief Complaint Patient presents with: F/U 3 Month HPI Adrianna Barney is a 61 year old female who presents here today for 3 month follow up. Here with her . Went out to [place] earlier this year. Will be going to [place] in [place] family for a camping trip. Tobacco - Denies wanting to quit at present time, continues to still smoke. HTN: Denies checking BP at home, no chest pains, dizziness, or SOB. Taking HCTZ 25 mg daily and Losartan 100 mg daily. Emphysema: Still smoking, does not want to quit at this time. SOB is stable, no inhalers or medications used. Lipid/Glucose: Trying to watch diet but denies much exercise. Does take care of 6 grandchildren ages to 13 since they are out of school. Expecting another one in May. Is taking Zocor 20 mg daily, tolerating well, no myalgia or gi upset. Insomnia: Ambien was increased last visit to CR 12.5 mg at night due to pt feeling lower dosages was not working as well. This is working much better per patient and spouse. Past medical history, appointments, medications, allergies reviewed. Previous Medical History PAST MEDICAL HISTORY Diagnosis Date Hyperlipidemia Insomnia Previous Surgical History PAST SURGICAL HISTORY Procedure Laterality Date DELIVERY ONLY x 3 CHOLECYSTECTOMY HX REM LESIO TRUNK,ARM,LEG 1.1 -2.0CM Right 06/09/15 Exc. right scapular angle cyst Family History FAMILY HISTORY Problem Relation Age of Onset Heart Mother Diabetes Brother Patient Allergies ALLERGIES No Known Allergies Current Medications Current Outpatient Medications on File Prior to Visit Medication Sig Zolpidem (AMBIEN CR) 12.5 mg CR tablet Take 1 tablet by mouth at bedtime as needed for up to 90 days. hydroCHLOROthiazide (HYDRODIURIL, ESIDRIX) 25 mg tablet Take 1 tablet by mouth once daily. simvastatin (ZOCOR) 20 mg tablet Take 1 tablet by mouth daily at bedtime. losartan (COZAAR) 100 mg tablet Take 1 tablet by mouth once daily. cholecalciferol, vitamin D3, (VITAMIN D3) 4,000 unit cap 1 po daily coenzyme Q10 (COENZYME Q-10) 100 mg cap capsule Take 1 capsule by mouth once daily. No current facility-administered medications on file prior to visit. Social History Social History Tobacco Use Smoking status: Current Every Day Smoker Packs/day: 1.00 Years: 37.00 Pack years: 37.00 Types: Cigarettes Smokeless tobacco: Never Used Tobacco comment: about 16 cigs per day Vaping Use Vaping Use: Never used Substance Use Topics Alcohol use: No Drug use: No EXAM: BP 128/78 (BP Site: Left Arm, BP Position: Sitting, BP Cuff Size: Large Adult) Pulse 72 Resp 16 Wt 100.7 kg (222 lb) LMP 02/25/2012 BMI 35.83 kg/m General Appearance: Well appearing, alert, in no acute distress, well-hydrated, well nourished. andOverweight. Lungs: Lungs clear to auscultation. No wheezing, rhonchi, rales.. Heart: RRR without murmur, gallop, or rubs. No ectopy. Health Maintenance List SPIROMETRY Never done HIV SCREENING Never done BP CONTROLLED (<130/80) Never done MAMMOGRAM due on 05/25/2016 PNEUMOCOCCAL(2 - PCV) due on 06/22/2016 COLORECTAL CANCER SCREENING due on 02/23/2020 LUNG CANCER SCREENING due on 05/06/2020 PAP TESTING due on 07/23/2022 HPV TESTING due on 07/23/2022 COVID-19 VACCINE(1) due on 05/14/2022 DEPRESSION SCREENING due on 05/14/2022 ANNUAL PCP TEAM CHRONIC DISEASE VISIT due on 11/12/2022 DIABETES SCREEN due on 11/02/2024 LIPID SCREEN due on 11/02/2026 DTAP,TDAP,TD(2 - Td or Tdap) due on 02/12/2028 INFLUENZA Completed HEPATITIS C SCREENING Completed SHINGRIX VACCINE Completed Data reviewed Appointment on 02/08/2022 Component Date Value Protein, Total 02/08/2022 7.3 Albumin 02/08/2022 4.6 Calcium, Total 02/08/2022 9.9 Bilirubin, Total 02/08/2022 0.4 Alkaline Phosphatase 02/08/2022 91 AST 02/08/2022 17 ALT 02/08/2022 19 Glucose 02/08/2022 109 (A) BUN 02/08/2022 12 Creatinine 02/08/2022 0.75 Sodium 02/08/2022 138 Potassium 02/08/2022 5.1 Chloride 02/08/2022 100 CO2 02/08/2022 26 Anion Gap 02/08/2022 12 Estimated Glomerular Tarun* 02/08/2022 91 Cholesterol, Total 02/08/2022 176 Triglyceride 02/08/2022 114 HDL Cholesterol 02/08/2022 41 Non HDL Cholesterol 02/08/2022 135 (A) Fasting Time 02/08/2022 12 VLDL Cholesterol 02/08/2022 23 TC:HDL Ratio 02/08/2022 4.29 LDL Cholesterol 02/08/2022 112 (A) LDL:HDL Ratio 02/08/2022 2.73 (A) Hemoglobin A1C 02/08/2022 5.8 (A) Estimated Average Glucose 02/08/2022 120 Vitamin D 25 Hydroxy 02/08/2022 43.8 ASSESSMENT/PLAN: 1. Primary insomnia - ICD9: 307.42, ICD10: F51.01 (primary diagnosis) - Stable on increased dosage - Continue current medication regimen. 2. Hypertension, unspecified type - ICD9: 401.9, ICD10: I10 - good control - Continue current medication(s) - Recommended regular aerobic exercise. - Recommend home blood pressure monitoring, to bring results in on next visit - Goal of BP <130/80 3. Elevated glucose - ICD9: 790.29, ICD10: R73.09 - Cont to monitor 4. Mixed hyperlipidemia - ICD9: 272.2, ICD10: E78.2 - good control - Continue current medication. - Encouraged following a low fat, low cholesterol diet. - Discussed the benefits of regular aerobic exercise and weight loss. 5. Tobacco abuse disorder - ICD9: 305.1, ICD10: Z72.0 - Cessation encouraged. - Physiologic and physical aspects of tobacco addiction as well as strategies for quitting were discussed. - Counseling was given focusing on the harmful effects of this addiction especially given the patient's medical condition(s) which will be worsened because of the chemicals in tobacco. 6 mo f/u with labs. I agree with the Chief Complaint, ROS, and Past Histories independently gathered by the clinical clerical and office support workers and the remaining scribed note accurately describes my personal service to the patient. Medical Decision Making: Problems: Moderate: 2+ stable chronic illnesses Data: Unique test result(s) reviewed: 3+ Unique test(s) ordered: 3+ Risk: Moderate: Drug management Medical Decision Making Level: 4 - Moderate Deepak Rivers MD The documentation for this note was completed by Solange Martinez Ma acting as scribe for Deepak Rivers MD. February 13, 2022 9:42 AM. Solange Martinez Ma documented in this encounterSt. [facility] [facility]06[facility] Miscellaneous Notes* Telephone Encounter - Deepak Rivers MD - 01/28/2022 8:45 AM EDT OK to refill as ordered Deepak Rivers MD * Telephone Encounter - Carol Angel LPN - 01/28/2022 8:31 AM EDT Patient has been identified by name and date of : Yes Patient phones for refill(s): Pending Prescriptions Disp Refills ZOLPIDEM ER 12.5 MG TABLET,EXTENDED RELEASE,MULTIPHASE 30 tablet 2 Sig: Take 1 tablet by mouth at bedtime as needed for up to 90 days. TRENT Class: C-IV EDMUND: No Date of last office visit in primary care: 11/12/21 next apt 02/13/22 Last 2 Encounter Wt Readings: Date: Wt: 11/12/2021 101.8 kg (224 lb 8 oz) 07/17/2021 100.2 kg (221 lb) Previous labs/tests for medication: Not applicable Please advise. Thank you. Carol Angel LPN documented in this encounterSt. Mary'[facility]03[facility] History of Present illness Narrative* Deepak Rivers MD - 11/12/2021 9:00 AM EDT Chief Complaint Patient presents with: 6 Month Exam HPI Adrianna Barney is a 61 year old female who presents here today for 6 month follow up. Here with her . Is going to be leaving for [facility] to visit his brother. Denies any bowel, Gi, or urinary issues. Smoker/Emphysema: still smoking, no interest in quitting at this time. She does not use any inhalers for SOB. HTN: Denies checking BP at home with readings 140/70. Taking HCTZ 25 mg daily and Losartan 100 mg daily. No chest pains, dizziness, or SOB. Lipid: Taking Zocor 20 mg daily, tolerating well, no myalgia or gi upset. She has not been following a diet like but tries. Does not get much exercise. Insomnia: Uses Ambien CR 6.25 mg at bedtime but does feel it is working as well as it used. Gettingabout 6-7 interrupted hours of sleep. Past medical history, appointments, medications, allergies reviewed. Previous Medical History PAST MEDICAL HISTORY Diagnosis Date Hyperlipidemia Insomnia Previous Surgical History PAST SURGICAL HISTORY Procedure Laterality Date DELIVERY ONLY x 3 CHOLECYSTECTOMY HX REM LESIO TRUNK,ARM,LEG 1.1 -2.0CM Right 06/09/15 Exc. right scapular angle cyst Family History FAMILY HISTORY Problem Relation Age of Onset Heart Mother Diabetes Brother Patient Allergies ALLERGIES No Known Allergies Current Medications Current Outpatient Medications on File Prior to Visit Medication Sig zolpidem (AMBIEN CR) 6.25 mg CR tablet Take 1 tablet by mouth at bedtime as needed for up to 90 days. hydroCHLOROthiazide (HYDRODIURIL, ESIDRIX) 25 mg tablet Take 1 tablet by mouth once daily. simvastatin (ZOCOR) 20 mg tablet Take 1 tablet by mouth daily at bedtime. losartan (COZAAR) 100 mg tablet Take 1 tablet by mouth once daily. cholecalciferol, vitamin D3, (VITAMIN D3) 4,000 unit cap 1 po daily coenzyme Q10 (COENZYME Q-10) 100 mg cap capsule Take 1 capsule by mouth once daily. No current facility-administered medications on file prior to visit. Social History Social History Tobacco Use Smoking status: Current Every Day Smoker Packs/day: 1.00 Years: 37.00 Pack years: 37.00 Types: Cigarettes Smokeless tobacco: Never Used Tobacco comment: about 16 cigs per day Vaping Use Vaping Use: Never used Substance Use Topics Alcohol use: No Drug use: No EXAM: BP 125/80 Pulse 60 Resp 16 Wt 101.8 kg (224 lb 8 oz) LMP 02/25/2012 BMI 36.24 kg/m General Appearance: Well appearing, alert, in no acute distress, well-hydrated, well nourished.. Lungs: Lungs clear to auscultation. No wheezing, rhonchi, rales.. Heart: RRR without murmur, gallop, or rubs. No ectopy. Health Maintenance List SPIROMETRY Never done BP CONTROLLED (<130/80) Never done MAMMOGRAM due on 05/25/2016 COLORECTAL CANCER SCREENING due on 02/23/2020 LUNG CANCER SCREENING due on 05/06/2020 HIV SCREENING due on 11/06/2021 COVID-19 VACCINE(1) due on 05/14/2022 DEPRESSION SCREENING due on 05/14/2022 ANNUAL PCP TEAM CHRONIC DISEASE VISIT due on 07/17/2022 PAP TESTING due on 07/23/2022 HPV TESTING due on 07/23/2022 DIABETES SCREEN due on 11/02/2024 LIPID SCREEN due on 11/02/2026 DTAP,TDAP,TD(2 - Td or Tdap) due on 02/12/2028 ONE PNEUMOVAX PRIOR TO AGE 65 Completed INFLUENZA Completed HEPATITIS C SCREENING Completed SHINGRIX VACCINE Completed MENINGOCOCCAL CONJUGATE Aged Out Data reviewed Appointment on 11/02/2021 Component Date Value Protein, Total 11/02/2021 6.9 Albumin 11/02/2021 4.4 Calcium, Total 11/02/2021 9.0 Bilirubin, Total 11/02/2021 0.3 Alkaline Phosphatase 11/02/2021 95 AST 11/02/2021 22 ALT 11/02/2021 17 Glucose 11/02/2021 94 BUN 11/02/2021 11 Creatinine 11/02/2021 0.65 Sodium 11/02/2021 139 Potassium 11/02/2021 4.6 Chloride 11/02/2021 103 CO2 11/02/2021 23 Anion Gap 11/02/2021 13 Estimated Glomerular Tarun* 11/02/2021 101 Cholesterol, Total 11/02/2021 159 Triglyceride 11/02/2021 107 HDL Cholesterol 11/02/2021 46 Non HDL Cholesterol 11/02/2021 113 Fasting Time 11/02/2021 12 VLDL Cholesterol 11/02/2021 21 TC:HDL Ratio 11/02/2021 3.46 LDL Cholesterol 11/02/2021 92 LDL:HDL Ratio 11/02/2021 2.00 Hemoglobin A1C 11/02/2021 5.9 (A) Estimated Average Glucose 11/02/2021 123 ASSESSMENT/PLAN: 1. Primary insomnia - ICD9: 307.42, ICD10: F51.01 (primary diagnosis) uncontrolled Increase Ambien to 12.5 CR 2. Screen for colon cancer - ICD9: V76.51, ICD10: Z12.11 IFOBT test ordered 3. Encounter for screening mammogram for malignant neoplasm of breast - ICD9: V76.12, ICD10: Z12.31 - Follow up for annual exam in one year. - FRANCIA SCREENING 4. Mixed hyperlipidemia - ICD9: 272.2, ICD10: E78.2 - good control - Continue current medication. - Encouraged following a low fat, low cholesterol diet. - Discussed the benefits of regular aerobic exercise and weight loss. 5. Tobacco abuse disorder - ICD9: 305.1, ICD10: Z72.0 - Cessation encouraged. - Physiologic and physical aspects of tobacco addiction as well as strategies for quitting were discussed. - Counseling was given focusing on the harmful effects of this addiction especially given the patient's medical condition(s) which will be worsened because of the chemicals in tobacco. - Counseling was given 3-4 minutes. - Recommended to called 1-800-QUIT NOW 6. Vitamin D deficiency - ICD9: 268.9, ICD10: E55.9 Continue current medications. 7. HTN Good control Continue current medications. Follow up in 3 months with fasting labs prior. I agree with the Chief Complaint, ROS, and Past Histories independently gathered by the clinical clerical and office support workers and the remaining scribed note accurately describes my personal service to the patient. Medical Decision Making: Problems: Moderate: 2+ stable chronic illnesses Data: Unique test result(s) reviewed: 3+ Unique test(s) ordered: 3+ Risk: Moderate: Drug management Medical Decision Making Level: 4 - Moderate Deepak Rivers MD The documentation for this note was completed by Nancy Ramirez Ma acting as scribe for Deepak Rivers MD. November 12, 2021 9:19 AM. Nancy Ramirez Ma documented in this encounterSt. [facility] CampusDischarge summary Author Luis Geiger [facility] Note Date/Time November 03, 2024 7:4 0am [facility] Medical Records Department [address] [place] [address] Emergency Department Summary 11/03/24 MR#: [id number] Acct: [id number] Name: ADRIANNA BARNEY Rep #:[id number] : 1960 64 From: Luis Geiger DO PCP: Dr. Deepak Rivers MD Status:RE G ER Location: ED HPI History of Present Illness Chief Complaint: Upper Extremity Injury Informant: patient and spouse/S.O. Narrative Narrative: Patient is a 64-year-old female who reports a past medical history of hypertension and hyperlipidemia. She reports she is right-hand dominant. She states around 3 in the morning she fell out of bed and landed on her right side. She denies any LOC and states she does not have a history of bleeding disorder nor does she take blood thinners. She states she noticed pain in her right upper arm/shoulder but tried to go back to bed. She states over the next 3 hours any type of motion causes severe pain and she noticed increased swelling to the arm and therefore with concern for fracture she presents for evaluation [facility] Medical History no medical history no medical history Home Medications ?Medication ?Instructions ?Recorded ?Last Taken ?Type ondansetron 4 mg disintegrating 4 mg PO TID PRN nausea and 11/03/24 Unknown Rx tablet vomiting #21 tabs oxycodone 5 mg tablet 5 mg PO Q6H PRN pain 5 days #20 11/03/24 Unknown Rx tabs Allergy/AdvReac Type Severity Reaction Status Date / Time Unable to Assess Allergy Verified 11/03/24 06:04 Social History Smoking Status: Current every day smoker tobacco type: cigarettes ROS ROS ED Constitutional Constitutional ED: Denies chills or fever(s) Eyes Eyes: Denies blurry vision, change in vision or diplopia ENT ENT ED: Denies sore throat Cardiovascular Cardiovascular: Denies chest pain Respiratory/Chest Respiratory/Chest: Denies cough or dyspnea Gastrointestinal Gastrointestinal: Denies abdominal pain, diarrhea, nausea or vomiting Genitourinary Genitourinary ED: Denies dysuria Musculoskeletal Musculoskeletal: Reports other Details: Positive right shoulder/upper arm pain ; Denies back pain or neck pain Integumentary Reports other Details: Positive bruising right upper arm Neurologic Neurologic: Denies headache(s) or paresthesias Hematologic/Lymphatic Hematologic/Lymphatic: Denies easy bleeding or easy bruising EXAM Physical Exam Const Vital Signs: 11/03/24 06:00 Temperature 97.4 F L Temperature Source Oral Pulse Rate 84 Respiratory Rate 22 H Blood Pressure 158/86 H Blood Pressure Mean 110 Pulse Ox 98 Positive well nourished, well developed and obese General Appearance ED: well developed Nutritional Appearance: obese HEENT HEENT Narrative: Normocephalic atraumatic Eyes PERRL and EOMs intact bilaterally Neck full ROM and supple Neck Narrative: No bony deformity or step-off of the cervical spine no midline tenderness to palpation Resp normal respiratory effort and clear to auscultation bilaterally Cardio regular rate and regular rhythm Back/Spine Back/Spine Narrative: No bony deformity or step-off of the thoracic or lumbar spine no midline tenderness to palpation Extremity Extremity Narrative: Right upper extremity is neurovascularly intact; AIN/PIN are intact and normal Patient has ecchymosis and soft tissue swelling of the right upper arm/humerus compared to left concerning for fracture. Compartments are soft and compressible however going against compartment syndrome. No sulcus sign noted. Active range of motion as well as passive range of motion is severely limited secondary to pain Pelvis is stable there is no shortening or external rotation of either lower extremity Remainder of the exam is normal Neuro oriented x3 and CN's II-XII intact bilaterally Sensorium / Orientation: alert Psych mental status grossly normal Skin Skin Narrative: Soft tissue swelling ecchymosis of the right upper arm/humerus as documented above Capillary refill is less than 3 seconds MDM MDM MDM Narrative Medical decision making narrative: Patient presented to the ER hypertensive as a past medical history of this. Shereported a mechanical fall from her bed she is not on a blood thinner nor does she have signs of head trauma so my concern for a skull fracture versus traumatic subarachnoid or subdural hemorrhage is low and I feel no need for headCT. The patient has soft tissue swelling ecchymosis of the right upper arm but compartments are soft and compressible going against compartment syndrome. As history and exam is most concerning with a proximal humerus fracture/shoulder fracture x-rays were obtained. This confirmed a comminuted humeral head/neck fracture. The case was discussed and reviewed by orthopedic surgeon Dr. Flores. He agrees as she is neurovascularly intact there is no need for emergent surgical fixation. He recommends he be placed in a sling for stabilization and can follow-up as an outpatient. This plan of care was discussed with patient and family and they are agreeable to it and therefore sheprescribed oxycodone for pain control but is otherwise safe for discharge History & Record Review Discussion w/independent historian: Patient and Significant other Radiography Diagnostic Testing: X-ray of the right shoulder displays a comminuted fracture of the right humeral head/neck junction without obvious dislocation X-ray of the right humerus shows the comminuted fracture of the right humeral head with intact distal humerus Discharge Plan Triage Chief Complaint: Upper Extremity Injury ED Provider: Luis Geiger Dx/Rx/DC Orders Clinical Impression: Fracture of shoulder, Accidental fall, Hypertension, Hyperlipidemia Instructions: ED Fracture, Upper Extremity, ED Fracture, Shoulder Prescriptions: New oxycodone 5 mg tablet 5 mg PO Q6H PRN (Reason: pain) 5 Days Qty: 20 0RF ondansetron 4 mg tablet,disintegrating 4 mg PO TID PRN (Reason: nausea and vomiting) Qty: 21 0RF Primary Care Provider: Deepak Rivers Referrals: Deepak Rivers MD [Primary Care Provider] - Man Flores DO [Med Staff - Active Staff] - (Right shoulder fracture) Activity Restrictions/Additional Instructions: Please wear your sling for support and stabilization of your fracture. Sleep inmore of an upright position to allow gravity to lengthen the fracture fragment out. Follow-up with orthopedics/Dr. Flores for repeat evaluation and to discuss need for surgical fixation of your shoulder. Return to the ER should you have any further concerns Print Language: Polish Disposition Disposition: Home, Self Care What to do if you have Problems For any increased pain, shortness of breath, bleeding, nausea or vomiting, chestpain, or any unexpected problems, contact your Primary Care Provider. Call [facility] ([phone]) or report to the closest Emergency Room. Call 911 if necessary. 11/03/24 0740 <Electronically signed by Luis Geiger DO> Cosigner Signature (if applicable): CC: Dr. Deepak Rivers MD ~ Signed [facility] Work Phone: Discharge summary Author Padma Grace [facility] Note Date/Time November 22, 2024 12:1 1pm [facility] Medical Records Department [address] [place] [address] Discharge Summary 11/22/24 1200 MR#: [id number] Acct: [id number] Name: ADRIANNA BARNEY Rep #:[id number] : 1960 64 From: Padma HAJI PCP: Dr. Deepak Rivers MD Status:AD M IRINEO Location: MS3 [id number] Providers Date of Admission: 11/21/24 Date of Discharge: 11/22/24 Primary Care Physician: Dr. Deepak Rivers MD Reason For Visit: Total Shoulder Replacement, Reverse Diagnosis Discharge Diagnosis (1) Proximal humerus fracture: Status: Acute Code(s): S42.209A - Unspecified fracture of upper end of unspecified humerus, initial encounter for closed fracture Plan 1. Will continue PT/OT. Elbow range of motion and pendulums only. Nonweightbearing to right upper extremity. 2. plan for discharge this afternoon following PT 3. Patient will follow up for post op appointment on and 2 weeks postoperativelythis will need to be arranged. 4. Patient has outpatient PT appointment after her 2-week postop appointment. 5. WBC 15.4 acute reactive leukocytosis: secondary to pre operative decadron. noacute systemic signs of infection. will monitor, and likely self resolve. 6. H/H 12.3/36.5: post operavtive anemia secondary to acute blood loss intraoperatively. Patient is asymptomatic at this time. No intraoperative complications. will continue to monitor. no acute interventions. 7. DVT prophylaxis : Aspirin 81 mg twice daily x 2 weeks 8. Pain control: patient instructed to take tylenol 500mg 2 tablets TID. and oxycodone 1-2 tablets every 4-6 hours only as needed for pain control. 9. Patient also given a prescription of doxycycline, senna, patient has aspirin and Tylenol and Zofran at home.. 10. ok to remove post op dressing. post op day 7 Medications at Discharge Home Medications ondansetron 4 mg disintegrating tablet 4 mg PO TID PRN nausea and vomiting #21 tabs 11/03/24 cholecalciferol (vitamin D3) 25 mcg (1,000 unit) capsule (Vitamin D3) 25 mcg PO DAILY 11/14/24 coenzyme Q10 100 mg capsule (Co Q-10) 100 mg PO DAILY 11/14/24 hydrochlorothiazide 25 mg tablet 25 mg PO DAILY 11/14/24 losartan 100 mg tablet 100 mg PO DAILY 11/14/24 ranitidine HCl 150 mg tablet 150 mg PO DAILY PRN ACID REFLUX 11/14/24 simvastatin 20 mg tablet 20 mg PO QHS 11/14/24 zolpidem 12.5 mg tablet,extended release,multiphase 12.5 mg PO QHS PRN PRN insomnia 11/14/24 aspirin 81 mg tablet,delayed release 81 mg PO DAILY@0800 #28 tabs 11/22/24 doxycycline hyclate 100 mg capsule 100 mg PO BID #14 caps 11/22/24 meloxicam 7.5 mg tablet 7.5 mg PO BID #60 tabs 11/22/24 oxycodone 5 mg tablet 5 - 10 mg (1 - 2 x 5 mg) PO .q4-6hrs prn PRN Pain Score 4- 10 7 days #30 tabs 11/22/24 sennosides 8.6 mg-docusate sodium 50 mg tablet (Stimulant Laxative Plus) 2 tab PO BID #10 tabs 11/22/24 Hospital Course Operations - (Right reverse total shoulder arthroplasty.) Summary of Care Provided Hospital Course: Patient is s/p right reverse total shoulder arthroplasty with Dr. Flores. After a fall out of her bed and having a four-part proximal humerus fracture. Patient resting comfortably in bed. Rates pain 2/ 10 at rest. With movement 2/10. States taking Tylenol and oxycodone and ice help to relieve pain. Patient has been up with therapy. Compliant with sling. Nonweightbearing to right upper extremity.. Afebrile, no chest pain, shortness of breath, negative calf pain/ erythema, and no other signs of DVT. Physical Exam Narrative Patient resting comfortably in bed side chair No signs of acute distress Satting well on room air Sling in place Right upper extremity limb is warm to touch, Sensation intact throughout entire right upper extremity Motor intact to radial, median, ulnar nerve distribution Radial pulses bounding. Dressing clean dry intact Calf nontender to palpation, no erythema, no edema. Negative Homans Weight / BMI Weight Weight: 102.058 kg Body Mass Index (BMI) 35.2 ABG / Lab / Microbiology Data 11/22/24 07:01 11/22/24 07:01 Laboratory: Laboratory Results - last 24 hr 11/22/24 07:01: WBC 15.4 H, RBC 3.88 L, Hgb 12.3, Hct 36.5 L, MCV 94.1, MCH 31.7, MCHC 33.7, RDW Std Deviation 45.5 H, RDW Coeff of Tavia 13.2, Plt Count 283,MPV 12.4 H, Sodium 137, Potassium 4.3, Chloride 102, Carbon Dioxide 22.8, Anion Gap 13, BUN 8, Creatinine 0.60 L, Estim Creat Clear Calc 117.85, Est GFR (MDRD) Non-Af 101, BUN/Creatinine Ratio 13.6, Glucose 133 H, Calcium 9.4 Microbiology: Microbiology 11/15/24 16:21 Swab (Method) Nasal Screen MRSA/MSSA - Final Radiography Diagnostic Testing: Radiology Impression Shoulder X-Ray 11/21/24 14:21 IMPRESSION: Status post right shoulder arthroplasty. Anatomic alignment. Reading Location: [id number] Shoulder X-Ray 11/21/24 15:45 IMPRESSION: Postoperative right reverse shoulder arthroplasty. Reading Location: [id number] D/C Instructions Discharge Diet: No restrictions Discharge Activity: May Not Drive, May Shower and - (Nonweightbearing right upper extremity. Sling at all times.) Weight Bearing Status: No weight bearing (Right upper extremity) Call your doctor if your incision/area has: Continuous Slow Oozing, Sudden Increased Bleeding, Increased Pain/ Swelling, Increased Redness, Foul Smelling Discharge and Swelling at the incision site Call your doctor if you observe: Fever of 101 or Higher, Inability to have a bowel movement, Using more than 1 pad per hour, Shortness of breath, Swelling inthe ankles, Chest pain, Increased palpitations (irregular heartbeat), Calf discomfort and Uncontrolled pain Remove Dressing in: 1 week Cleanse incision/area with: Soap & Water and Keep Dressing Clean & Dry DC O2, CPAP, BIPAP Needs Home O2 Discharge instructions: No DC home with Oxygen: No Meaningful Use Info Meaningful Use Meaningful Use Diagnoses (Choose all that apply): None applicable Ischemic Stroke Statin Dosing Therapy Reference: STATIN DOSE THERAPY REFERENCE: * Patients > 75 years receive moderate or high dose statin therapy. * Patients 75 years or YOUNGER should receive HIGH intensity statin dose unless contraindicated. You will be required to document reason for non-treatment if statin daily dose does not meet guidelines. HIGH DOSE STATIN THERAPY DAILY Atorvastatin > than or = to 40 mg Rosuvastatin > than or = to 20 mg Amlodipine + Atorvastatin > than or = to 2.5/40 mg Ezetimibe + Simvastatin 10/80 mg Simvastatin 80mg Discharge Plan Admission Admit Date/Time: 11/21/24 15:16 Attending Provider: Man Flores Primary Care Provider: Deepak Rivers Discharge Orders/Prescriptions Prescriptions: New aspirin 81 mg Tablet,Delayed Release (Dr/Ec) 81 mg PO DAILY@0800 Qty: 28 0RF meloxicam 7.5 mg Tablet 7.5 mg PO BID Qty: 60 0RF oxycodone 5 mg Tablet 5 - 10 mg PO .q4-6hrs prn PRN (Reason: Pain Score 4-10) 7 Days Qty: 30 0RF sennosides-docusate sodium [Stimulant Laxative Plus] 8.6-50 mg Tablet 2 tab PO BID Qty: 10 0RF doxycycline hyclate 100 mg capsule 100 mg PO BID Qty: 14 0RF Continued simvastatin 20 mg tablet 20 mg PO QHS hydrochlorothiazide 25 mg tablet 25 mg PO DAILY losartan 100 mg tablet 100 mg PO DAILY coenzyme Q10 [Co Q-10] 100 mg capsule 100 mg PO DAILY cholecalciferol (vitamin D3) [Vitamin D3] 25 mcg (1,000 unit) capsule 25 mcg PO DAILY zolpidem 12.5 mg tablet,ext release multiphase 12.5 mg PO QHS PRN PRN (Reason: insomnia) ranitidine HCl 150 mg tablet 150 mg PO DAILY PRN ondansetron 4 mg tablet,disintegrating 4 mg PO TID PRN (Reason: nausea and vomiting) Qty: 21 0RF Discontinued oxycodone 5 mg tablet 5 mg PO Q6H PRN (Reason: pain) 5 Days Qty: 20 0RF Referrals / Follow Up: Deepak Rivers MD [Primary Care Provider] - Disposition Disposition (needs filled in before D/C Order can be placed): Home, Self Care 11/22/24 1211 <Electronically signed by Padma HAJI> Cosigner Signature (if applicable): CC: Dr. Deepak Rivers MD; RAISSA Jimenez~ Signed [facility] Work Phone: Evaluation note* Diagnosis Hypertension, unspecified type- Primary Primary insomnia Persistent disorder of initiating or maintaining sleep Screen for colon cancer Special screening for malignant neoplasms, colon Encounter for screening mammogram for malignant neoplasm of breast Other screening mammogram Mixed hyperlipidemia Tobacco abuse disorder Tobacco use disorder Vitamin D deficiency Unspecified vitamin D deficiency Elevated glucose Other abnormal glucose [facility] [place] [facility] Diagnosis Primary insomnia Persistent disorder of initiating or maintaining sleep [facility] [place] [facility]* Diagnosis Hypertension, unspecified type- Primary Primary insomnia Persistent disorder of initiating or maintaining sleep Elevated glucose Other abnormal glucose Mixed hyperlipidemia Tobacco abuse disorder Tobacco use disorder [facility] [place] [facility]* Diagnosis Primary insomnia Persistent disorder of initiating or maintaining sleep [facility] [place] [facility]* Diagnosis Wellness examination- Primary Pulmonary emphysema, unspecified emphysema type (HCC) Hypertension, unspecified type Mixed hyperlipidemia Primary insomnia Persistent disorder of initiating or maintaining sleep Screening for colon cancer Special screening for malignant neoplasms, colon Encounter for immunization Need for other specified prophylactic vaccination against single bacterial disease [facility] [place] [facility] Diagnosis Primary insomnia Persistent disorder of initiating or maintaining sleep [facility] [place] [facility] Diagnosis Hypertension, unspecified type- Primary Screening for colon cancer Special screening for malignant neoplasms, colon Primary insomnia Persistent disorder of initiating or maintaining sleep Mixed hyperlipidemia Tobacco abuse disorder Tobacco use disorder [facility] [place] [facility] Diagnosis Encounter for screening mammogram for breast cancer [facility] [place] [facility]* Diagnosis Mixed hyperlipidemia [facility] [place] [facility]* Diagnosis Primary insomnia Persistent disorder of initiating or maintaining sleep [facility] [place] [facility] Diagnosis Primary insomnia Persistent disorder of initiating or maintaining sleep [facility] [place] [facility] Diagnosis Primary insomnia- Primary Persistent disorder of initiating or maintaining sleep Mixed hyperlipidemia Hypertension, unspecified type Elevated glucose Other abnormal glucose [facility] [place] [facility]* Diagnosis Hypertension, unspecified type- Primary documented [facility] [place] [facility]* Diagnosis Wellness examination- Primary Hypertension, unspecified type Mixed hyperlipidemia Primary insomnia Persistent disorder of initiating or maintaining sleep Tobacco abuse disorder Tobacco use disorder Women's annual routine gynecological examination Screening for colon cancer Special screening for malignant neoplasms, colon [facility] [place] [facility]* Diagnosis Primary insomnia Persistent disorder of initiating or maintaining sleep documented [facility] [place] [facility]* Diagnosis Eustachian tube dysfunction, bilateral- [facility] Diagnosis Encounter for screening mammogram for breast cancer [facility] [place] [facility]* Diagnosis Mixed hyperlipidemia [facility] [place] [facility] Diagnosis Primary insomnia Persistent disorder of initiating or maintaining sleep [facility] [place] [facility] Diagnosis Mixed hyperlipidemia [facility] [place] [facility]* Diagnosis Pulmonary emphysema, unspecified emphysema type (HCC) documented in this encounter [facility] note* Diagnosis Hypertension, unspecified type- Primary Primary insomnia Persistent disorder of initiating or maintaining sleep Mixed hyperlipidemia Elevated glucose Other abnormal glucose Tobacco abuse disorder Tobacco use disorder [facility] [place] [facility] Diagnosis Primary insomnia- Primary Persistent disorder of initiating or maintaining sleep Weight gain Abnormal weight gain Sebaceous cyst Asymptomatic varicose veins, bilateral Tobacco abuse disorder Tobacco use disorder Bronchitis- Primary Bronchitis, not specified as acute or chronic Need for prophylactic vaccination against Streptococcus pneumoniae (pneumococcus) Need for prophylactic vaccination against streptococcus pneumoniae (pneumococcus) Tobacco abuse disorder Tobacco use disorder Primary insomnia Persistent disorder of initiating or maintaining sleep Routine health maintenance Routine general medical examination at a health care facility Weight gain Abnormal weight gain Sebaceous cyst Psychophysiological insomnia- Primary Persistent disorder of initiating or maintaining sleep Encounter for screening mammogram for malignant neoplasm of breast Other screening mammogram Tobacco abuse disorder Tobacco use disorder Routine gynecological examination Routine health maintenance Routine general medical examination at a [facility] Anxiety and depression Dysthymic disorder Wellness examination- Primary Hypertension, unspecified type Mixed hyperlipidemia Primary insomnia Persistent disorder of initiating or maintaining sleep Elevated glucose Other abnormal glucose Tobacco abuse disorder Tobacco use disorder Screening for colon cancer Special screening for malignant neoplasms, colon documented in this encounter [facility] note* Diagnosis Primary insomnia- Primary Persistent disorder of initiating or maintaining sleep Weight gain Abnormal weight gain Sebaceous cyst Asymptomatic varicose veins, bilateral Tobacco abuse disorder Tobacco use disorder Bronchitis- Primary Bronchitis, not specified as acute or chronic Need for prophylactic vaccination against Streptococcus pneumoniae (pneumococcus) Need for prophylactic vaccination against streptococcus pneumoniae (pneumococcus) Tobacco abuse disorder Tobacco use disorder Primary insomnia Persistent disorder of initiating or maintaining sleep Routine health maintenance Routine general medical examination at a [facility] care facility Weight gain Abnormal weight gain Sebaceous cyst Psychophysiological insomnia- Primary Persistent disorder of initiating or maintaining sleep Encounter for screening mammogram for malignant neoplasm of breast Other screening mammogram Tobacco abuse disorder Tobacco use disorder Routine gynecological examination Routine health maintenance Routine general medical examination at a health care facility Anxiety and depression Dysthymic disorder Primary insomnia Persistent disorder of initiating or maintaining sleep [facility] Diagnosis Primary insomnia- Primary Persistent disorder of initiating or maintaining sleep Weight gain Abnormal weight gain Sebaceous cyst Asymptomatic varicose veins, bilateral Tobacco abuse disorder Tobacco use disorder Bronchitis- Primary Bronchitis, not specified as acute or chronic Need for prophylactic vaccination against Streptococcus pneumoniae (pneumococcus) Need for prophylactic vaccination against streptococcus pneumoniae (pneumococcus) Tobacco abuse disorder Tobacco use disorder Primary insomnia Persistent disorder of initiating or maintaining sleep Routine health maintenance Routine general medical examination at a [facility] Weight gain Abnormal weight gain Sebaceous cyst Psychophysiological insomnia- Primary Persistent disorder of initiating or maintaining sleep Encounter for screening mammogram for malignant neoplasm of breast Other screening mammogram Tobacco abuse disorder Tobacco use disorder Routine gynecological examination Routine health maintenance Routine general medical examination at a [facility] Anxiety and depression Dysthymic disorder Primary insomnia- Primary Persistent disorder of initiating or maintaining sleep [facility] [place] [facility]* Diagnosis Primary insomnia- Primary Persistent disorder of initiating or maintaining sleep Weight gain Abnormal weight gain Sebaceous cyst Asymptomatic varicose veins, bilateral Tobacco abuse disorder Tobacco use disorder Bronchitis- Primary Bronchitis, not specified as acute or chronic Need for prophylactic vaccination against Streptococcus pneumoniae (pneumococcus) Need for prophylactic vaccination against streptococcus pneumoniae (pneumococcus) Tobacco abuse disorder Tobacco use disorder Primary insomnia Persistent disorder of initiating or maintaining sleep Routine health maintenance Routine general medical examination at a [facility] Weight gain Abnormal weight gain Sebaceous cyst Psychophysiological insomnia- Primary Persistent disorder of initiating or maintaining sleep Encounter for screening mammogram for malignant neoplasm of breast Other screening mammogram Tobacco abuse disorder Tobacco use disorder Routine gynecological examination Routine health maintenance Routine general medical examination at a [facility] Anxiety and depression Dysthymic disorder Hypertension, unspecified type- Primary Primary insomnia Persistent disorder of initiating or maintaining sleep Tobacco abuse disorder Tobacco use disorder Mixed hyperlipidemia Pulmonary emphysema, unspecified emphysema type (HCC) Need for influenza vaccination Need for prophylactic vaccination and inoculation against influenza Elevated glucose Other abnormal glucose [facility] Diagnosis Primary insomnia- Primary Persistent disorder of initiating or maintaining sleep Weight gain Abnormal weight gain Sebaceous cyst Asymptomatic varicose veins, bilateral Tobacco abuse disorder Tobacco use disorder Bronchitis- Primary Bronchitis, not specified as acute or chronic Need for prophylactic vaccination against Streptococcus pneumoniae (pneumococcus) Need for prophylactic vaccination against streptococcus pneumoniae (pneumococcus) Tobacco abuse disorder Tobacco use disorder Primary insomnia Persistent disorder of initiating or maintaining sleep Routine health maintenance Routine general medical examination at a health care facility Weight gain Abnormal weight gain Sebaceous cyst Psychophysiological insomnia- Primary Persistent disorder of initiating or maintaining sleep Encounter for screening mammogram for malignant neoplasm of breast Other screening mammogram Tobacco abuse disorder Tobacco use disorder Routine gynecological examination Routine health maintenance Routine general medical examination at a [facility] care facility Anxiety and depression Dysthymic disorder Encounter for screening mammogram for breast cancer [facility] Diagnosis Primary insomnia- Primary Persistent disorder of initiating or maintaining sleep Weight gain Abnormal weight gain Sebaceous cyst Asymptomatic varicose veins, bilateral Tobacco abuse disorder Tobacco use disorder Bronchitis- Primary Bronchitis, not specified as acute or chronic Need for prophylactic vaccination against Streptococcus pneumoniae (pneumococcus) Need for prophylactic vaccination against streptococcus pneumoniae (pneumococcus) Tobacco abuse disorder Tobacco use disorder Primary insomnia Persistent disorder of initiating or maintaining sleep Routine health maintenance Routine general medical examination at a [facility] care facility Weight gain Abnormal weight gain Sebaceous cyst Psychophysiological insomnia- Primary Persistent disorder of initiating or maintaining sleep Encounter for screening mammogram for malignant neoplasm of breast Other screening mammogram Tobacco abuse disorder Tobacco use disorder Routine gynecological examination Routine health maintenance Routine general medical examination at a health care facility Anxiety and depression Dysthymic disorder Primary insomnia Persistent disorder of initiating or maintaining sleep [facility] [place] [facility]* Diagnosis Primary insomnia- Primary Persistent disorder of initiating or maintaining sleep Weight gain Abnormal weight gain Sebaceous cyst Asymptomatic varicose veins, bilateral Tobacco abuse disorder Tobacco use disorder Bronchitis- Primary Bronchitis, not specified as acute or chronic Need for prophylactic vaccination against Streptococcus pneumoniae (pneumococcus) Need for prophylactic vaccination against streptococcus pneumoniae (pneumococcus) Tobacco abuse disorder Tobacco use disorder Primary insomnia Persistent disorder of initiating or maintaining sleep Routine health maintenance Routine general medical examination at a health care facility Weight gain Abnormal weight gain Sebaceous cyst Psychophysiological insomnia- Primary Persistent disorder of initiating or maintaining sleep Encounter for screening mammogram for malignant neoplasm of breast Other screening mammogram Tobacco abuse disorder Tobacco use disorder Routine gynecological examination Routine health maintenance Routine general medical examination at a health care facility Anxiety and depression Dysthymic disorder Mixed hyperlipidemia documented [facility] noteNo assessment information availableWOhioHealth [facility] Work Phone: Evaluation note* Diagnosis Primary insomnia- Primary Persistent disorder of initiating or maintaining sleep Weight gain Abnormal weight gain Sebaceous cyst Asymptomatic varicose veins, bilateral Tobacco abuse disorder Tobacco use disorder Bronchitis- Primary Bronchitis, not specified as acute or chronic Need for prophylactic vaccination against Streptococcus pneumoniae (pneumococcus) Need for prophylactic vaccination against streptococcus pneumoniae (pneumococcus) Tobacco abuse disorder Tobacco use disorder Primary insomnia Persistent disorder of initiating or maintaining sleep Routine health maintenance Routine general medical examination at a health care facility Weight gain Abnormal weight gain Sebaceous cyst Psychophysiological insomnia- Primary Persistent disorder of initiating or maintaining sleep Encounter for screening mammogram for malignant neoplasm of breast Other screening mammogram Tobacco abuse disorder Tobacco use disorder Routine gynecological examination Routine health maintenance Routine general medical examination at a [facility] care facility Anxiety and depression Dysthymic disorder Primary insomnia Persistent disorder of initiating or maintaining sleep documented in this encounter [facility] Discharge instructions Additional Instructions Please wear your sling for support and stabilization of your fracture. Sleep in more of an upright position to allow gravity to lengthen the fracture fragment out. Follow-up with orthopedics/Dr. Flores for repeat evaluation and to discuss need for surgical fixation of your shoulder. Return to the ER should you have any further concerns[facility] Work Phone: Hospital Discharge instructions Additional Instructions Date of Discharge: 11/22/24[facility] Work Phone: Reason for referral (narrative)* Diagnostic Procedure Only (Routine) - Pending Review Specialty Diagnoses / Procedures Referred By Scarlett wiggins Referred To Contact [facility] Diagnoses Encounter for screening mammogram for malignant neoplasm of breast Procedures FRANCIA SCREENING SCREENING MAMMOGRAPHY BI 2-VIEW BREAST INC Deepak Grey MD [address] [place] [address] [id number] [place] [id number] Referral ID Status Reason Start Date Expiration Date Visits Requested Visits Authorized [id number] Pending Review Auto-Generat ed Referral 11/12/2021 12/12/2022 1 1 [facility] for referral (narrative)* Diagnostic Procedure Only (Routine) - Pending Review Specialty Diagnoses / Procedures Referred By Scarlett wiggins Referred To Contact [facility] Diagnoses Encounter for screening mammogram for breast cancer Procedures FRANCIA SCREENING SCREENING MAMMOGRAPHY BI 2-VIEW BREAST INC Deepak Grey MD [address] [place] [address] [facility] [address] [place] [address] Referral ID Status Reason Start Date Expiration Date Visits Requested Visits Authorized [id number] Pending Review Auto-Generat ed Referral 10/22/2022 11/21/2023 1 [facility] Diagnostic Procedure Only (Routine) - Pending Review Specialty Diagnoses / Procedures Referred By Scarlett wiggins Referred To Contact [facility] Diagnoses Encounter for screening mammogram for breast cancer Procedures FRANCIA SCREENING SCREENING MAMMOGRAPHY BI 2-VIEW BREAST INC CAD Deepak Rivers MD [address] [place] [address] [facility] [address] [place] [address] Referral ID Status Reason Start Date Expiration Date Visits Requested Visits Authorized [id number] Pending Review Auto-Generat ed Referral 10/07/2023 11/05/2024 1 1 [facility] Summary Purpose Family History No Family History Records FoundNo Family History Records FoundNo Family History Records FoundNo Family History Records Found Advance Directives Advance Directive Response Recorded Date/ Time Living Will No November 03, 2024 6:03am Do you have a Healthcare Power of Project Development Engineer? No November 03, 2024 6:03am Advance Directive Response Recorded Date/ Time Living Will No November 21, 2024 4:16pm Do you have a Healthcare Power of Project Development Engineer? No November 21, 2024 4:16pm Living Will No November 03, 2024 6:03am Do you have a Healthcare Power of Project Development Engineer? No November 03, 2024 6:03am Advance Directive Response Recorded Date/ Time Living Will No November 21, 2024 4:16pm Do you have a Healthcare Power of Project Development Engineer? No November 21, 2024 4:16pm Living Will No November 03, 2024 6:03am Do you have a Healthcare Power of Project Development Engineer? No November 03, 2024 6:03am Do you have a Healthcare Power of Project Development Engineer? No February 06, 2025 7:12pm Reason for Referral Specialty Diagnoses / Procedures Referred By Scarlett t Referred To Contact Gynecology Diagnoses Women's annual routine gynecological examination Procedures CONSULT TO GYNECOLOGY OFFICE/OUTPATIENT [facility] 60-74 MINUTES Nuzhat Estrada APRN.SPINAL SURGEON [address] [place] [address] Referral ID Status Reason Start Date Expiration Date Visits Requested Visits Authorized [id number] Authorized PCP Requested Referral Auto-Generate d Referral 04/24/2023 04/23/2024 1 1 Chief Complaint and Reason for Visit Chief Complaint Admit Date right shoulder injury November 03, 2024 5 :59am Chief Complaint Admit Date right shoulder injury November 03, 2024 5 :59am PRE OP November 03, 2024 2:5 1pm PRE OP November 04, 2024 8:3 2am PRE OP November 04, 2024 8:5 2am Chief Complaint Admit Date right shoulder injury November 03, 2024 5 :59am PRE OP November 03, 2024 2:5 1pm PRE OP November 04, 2024 8:3 2am PRE OP November 04, 2024 8:5 2am Total Shoulder Replacement, Reverse Apri l 2024 3:16pm Reason for Visit Admit Date Proximal humerus fracture November 21 3:16pm Chief Complaint Admit Date right shoulder injury November 03, 2024 5 :59am PRE OP November 03, 2024 2:5 1pm PRE OP November 04, 2024 8:3 2am PRE OP November 04, 2024 8:5 2am Total Shoulder Replacement, Reverse Apri l 2024 3:16pm SEPSIS, LEFT PYELONEPHRITIS WITH February 062024 10:00pm Reason for Visit Admit Date Proximal humerus fracture November 21 3:16pm GRISELDA (acute kidney injury) February 06 10:00pm Calculus of renal pelvis February 06, 2025 10:00pm Lactic acidosis February 06, 2025 10:0 0pm Nausea vomiting and diarrhea February 06, 2025 10:00pm Obesity (BMI 30.0-34.9) February 06, 2025 10:00pm Pyelonephritis February 06, 2025 10:0 0pm Severe sepsis February 06, 2025 10:0 0pm Additional Source Comments INFORMATION SOURCE (unrecogn ized section and content) DATE CREATED AUTHOR 04/27/2020 [facility] DATE CREATED AUTHOR AUTHOR'S ORGANIZ ATION 05/12/2020 [facility] DATE CREATED AUTHOR AUTHOR'S ORGANIZ ATION 12/10/2024 [facility] DATE CREATED AUTHOR AUTHOR'S ORGANIZ ATION 12/14/2024 [facility] Source Comments (unrecognize d section and content) In the event this informatio n is protected by the Federal Confidentiality of Alcohol and Drug Abuse Patient Records regulations: The Federal rules restrict any use of the information to criminally investigate or prosecute any alcohol or drug abuse patient.[facility]In the event this information is protected by the Federal Confidentiality of Alcohol and Drug Abuse Patient Records regulations: The Federal rules restrict any use of the information to criminally investigate or prosecute any alcohol or drug abuse patient.[facility] CampusIn the event this information is protected by the Federal Confidentiality of Alcohol and Drug Abuse Patient Records regulations: The Federal rules restrict any use of the information to criminally investigate or prosecute any alcohol or drug abuse patient.[facility] CampusIn the event this information is protected by the Federal Confidentiality of Alcohol and Drug Abuse Patient Records regulations: The Federal rules restrict any use of the information to criminally investigate or prosecute any alcohol or drug abuse patient.[facility] CampusIn the event this information is protected by the Federal Confidentiality of Alcohol and Drug Abuse Patient Records regulations: The Federal rules restrict any use of the information to criminally investigate or prosecute any alcohol or drug abuse patient.[facility] CampusIn the event this information is protected by the Federal Confidentiality of Alcohol and Drug Abuse Patient Records regulations: The Federal rules restrict any use of the information to criminally investigate or prosecute any alcohol or drug abuse patient.[facility] CampusIn the event this information is protected by the Federal Confidentiality of Alcohol and Drug Abuse Patient Records regulations: The Federal rules restrict any use of the information to criminally investigate or prosecute any alcohol or drug abuse patient.[facility] CampusIn the event this information is protected by the Federal Confidentiality of Alcohol and Drug Abuse Patient Records regulations: The Federal rules restrict any use of the information to criminally investigate or prosecute any alcohol or drug abuse patient.[facility] CampusIn the event this information is protected by the Federal Confidentiality of Alcohol and Drug Abuse Patient Records regulations: The Federal rules restrict any use of the information to criminally investigate or prosecute any alcohol or drug abuse patient.[facility] CampusIn the event this information is protected by the Federal Confidentiality of Alcohol and Drug Abuse Patient Records regulations: The Federal rules restrict any use of the information to criminally investigate or prosecute any alcohol or drug abuse patient.[facility] [place] CampusIn the event this information is protected by the Federal Confidentiality of Alcohol and Drug Abuse Patient Records regulations: The Federal rules restrict any use of the information to criminally investigate or prosecute any alcohol or drug abuse patient.[facility] [place] CampusIn the event this information is protected by the Federal Confidentiality of Alcohol and Drug Abuse Patient Records regulations: The Federal rules restrict any use of the information to criminally investigate or prosecute any alcohol or drug abuse patient.[facility] [place] CampusIn the event this information is protected by the Federal Confidentiality of Alcohol and Drug Abuse Patient Records regulations: The Federal rules restrict any use of the information to criminally investigate or prosecute any alcohol or drug abuse patient.[facility] [place] CampusIn the event this information is protected by the Federal Confidentiality of Alcohol and Drug Abuse Patient Records regulations: The Federal rules restrict any use of the information to criminally investigate or prosecute any alcohol or drug abuse patient.[facility] [place] CampusIn the event this information is protected by the Federal Confidentiality of Alcohol and Drug Abuse Patient Records regulations: The Federal rules restrict any use of the information to criminally investigate or prosecute any alcohol or drug abuse patient.[facility] [place] CampusIn the event this information is protected by the Federal Confidentiality of Alcohol and Drug Abuse Patient Records regulations: The Federal rules restrict any use of the information to criminally investigate or prosecute any alcohol or drug abuse patient.[facility] [place] CampusIn the event this information is protected by the Federal Confidentiality of Alcohol and Drug Abuse Patient Records regulations: The Federal rules restrict any use of the information to criminally investigate or prosecute any alcohol or drug abuse patient.[facility] [place] CampusIn the event this information is protected by the Federal Confidentiality of Alcohol and Drug Abuse Patient Records regulations: The Federal rules restrict any use of the information to criminally investigate or prosecute any alcohol or drug abuse patient.[facility] [place] CampusIn the event this information is protected by the Federal Confidentiality of Alcohol and Drug Abuse Patient Records regulations: The Federal rules restrict any use of the information to criminally investigate or prosecute any alcohol or drug abuse patient.[facility] [place] CampusIn the event this information is protected by the Federal Confidentiality of Alcohol and Drug Abuse Patient Records regulations: The Federal rules restrict any use of the information to criminally investigate or prosecute any alcohol or drug abuse patient.[facility] [place] CampusIn the event this information is protected by the Federal Confidentiality of Alcohol and Drug Abuse Patient Records regulations: The Federal rules restrict any use of the information to criminally investigate or prosecute any alcohol or drug abuse patient.[facility] [place] CampusIn the event this information is protected by the Federal Confidentiality of Alcohol and Drug Abuse Patient Records regulations: The Federal rules restrict any use of the information to criminally investigate or prosecute any alcohol or drug abuse patient.[facility] [place] CampusIn the event this information is protected by the Federal Confidentiality of Alcohol and Drug Abuse Patient Records regulations: The Federal rules restrict any use of the information to criminally investigate or prosecute any alcohol or drug abuse patient.[facility] [place] CampusIn the event this information is protected by the Federal Confidentiality of Alcohol and Drug Abuse Patient Records regulations: The Federal rules restrict any use of the information to criminally investigate or prosecute any alcohol or drug abuse patient.[facility] [place] CampusIn the event this information is protected by the Federal Confidentiality of Alcohol and Drug Abuse Patient Records regulations: The Federal rules restrict any use of the information to criminally investigate or prosecute any alcohol or drug abuse patient.[facility] [place] CampusIn the event this information is protected by the Federal Confidentiality of Alcohol and Drug Abuse Patient Records regulations: The Federal rules restrict any use of the information to criminally investigate or prosecute any alcohol or drug abuse patient.[facility] [place] CampusIn the event this information is protected by the Federal Confidentiality of Alcohol and Drug Abuse Patient Records regulations: The Federal rules restrict any use of the information to criminally investigate or prosecute any alcohol or drug abuse patient.[facility] [place] CampusIn the event this information is protected by the Federal Confidentiality of Alcohol and Drug Abuse Patient Records regulations: The Federal rules restrict any use of the information to criminally investigate or prosecute any alcohol or drug abuse patient.[facility] [place] CampusIn the event this information is protected by the Federal Confidentiality of Alcohol and Drug Abuse Patient Records regulations: The Federal rules restrict any use of the information to criminally investigate or prosecute any alcohol or drug abuse patient.[facility] [place] CampusIn the event this information is protected by the Federal Confidentiality of Alcohol and Drug Abuse Patient Records regulations: The Federal rules restrict any use of the information to criminally investigate or prosecute any alcohol or drug abuse patient.[facility] [place] CampusIn the event this information is protected by the Federal Confidentiality of Alcohol and Drug Abuse Patient Records regulations: The Federal rules restrict any use of the information to criminally investigate or prosecute any alcohol or drug abuse patient.[facility] [place] CampusIn the event this information is protected by the Federal Confidentiality of Alcohol and Drug Abuse Patient Records regulations: The Federal rules restrict any use of the information to criminally investigate or prosecute any alcohol or drug abuse patient.[facility] [place] CampusIn the event this information is protected by the Federal Confidentiality of Alcohol and Drug Abuse Patient Records regulations: The Federal rules restrict any use of the information to criminally investigate or prosecute any alcohol or drug abuse patient.[facility] [place] CampusIn the event this information is protected by the Federal Confidentiality of Alcohol and Drug Abuse Patient Records regulations: The Federal rules restrict any use of the information to criminally investigate or prosecute any alcohol or drug abuse patient.[facility] Reason for Visit (unrecogniz ed section and content) Reason Comments 6 Month Exam Reason Onset Date Comments Refill Request 01/28/2022 Reason Comments F/U 3 Month Reason Onset Date Comments Refill Request 04/03/2022 Reason Comments Wellness work insurance Reason Onset Date Comments Refill Request 07/07/2022 Reason Comments 6 Month Exam Reason Comments Refill Request Reason Onset Date Comments Refill Request 12/22/2022 Reason Onset Date Comments Refill Request 12/21/2022 Reason Comments Orders Reason Comments F/U 1 month BP Reason Comments Wellness Reason Onset Date Comments Refill Request 06/03/2023 Reason Comments Ear Pain right x this am Reason Onset Date Comments Refill Request 11/17/2023 Reason Onset Date Comments Refill Request 11/28/2023 Reason Onset Date Comments Refill Request 02/08/2024 Reason Comments F/U 6 Month Reason Comments Wellness Reason Onset Date Comments Refill Request 04/15/2024 Reason Comments Letter Request Reason Onset Date Comments Refill Request 07/18/2024 Reason Onset Date Comments 6 Month Exam Immunizations 08/15/2024 Flu vaccination Reason Onset Date Comments Refill Request 10/08/2024 Reason Onset Date Comments Refill Request 11/11/2024 Reason Comments Patient Update Reason Onset Date Comments Refill Request 01/02/2025 Care Teams (unrecognized sec tion and content) Power Equipment Technology Instructor Relationship Specialty Start Date End Date Deepak Rivers MD [address], [place] [address] PCP - General Family Practice 07/27/20 Power Equipment Technology Instructor Relationship Specialty Start Date End Date Deepak Rivers MD [address], [place] [id number] PCP - General Family Practice 07/27/20 Power Equipment Technology Instructor Relationship Specialty Start Date End Date Deepak Rivers MD [address] [place] [address] PCP - General Family Practice 07/27/20 Power Equipment Technology Instructor Relationship Specialty Start Date End Date Deepak Rivers MD [address] [facility] [place] [address] PCP - General Family Practice 07/27/20 Power Equipment Technology Instructor Relationship Specialty Start Date End Date Deepak Rivers MD [address] [facility] [place] [address] PCP - General Family Practice 07/27/20 Power Equipment Technology Instructor Relationship Specialty Start Date End Date Deepak Rivers MD [address] [facility] [place] [address] PCP - General Family Medicine 07/27/20 Power Equipment Technology Instructor Relationship Specialty Start Date End Date Deepak Rivers MD [address] [facility] [place] [address] PCP - General Family Medicine 07/27/20 Power Equipment Technology Instructor Relationship Specialty Start Date End Date Deepak Rivers MD [address] [facility] [place] [address] PCP - General Family Medicine 07/27/20 Power Equipment Technology Instructor Relationship Specialty Start Date End Date Deepak Rivers MD [address] [facility] [place] [address] PCP - General Family Medicine 07/27/20 Power Equipment Technology Instructor Relationship Specialty Start Date End Date Deepak Rivers MD [address] [facility] [place] [address] PCP - General Family Medicine 07/27/20 Power Equipment Technology Instructor Relationship Specialty Start Date End Date Deepak Rivers MD [address] [facility] [place] [address] PCP - General Family Medicine 07/27/20 Power Equipment Technology Instructor Relationship Specialty Start Date End Date Deepak Rivers MD [address] [facility] [place] [address] PCP - General Family Medicine 07/27/20 Power Equipment Technology Instructor Relationship Specialty Start Date End Date Deepak Rivers MD [address] [place] [address] PCP - General Family Medicine 07/27/20 Power Equipment Technology Instructor Relationship Specialty Start Date End Date Deepak Rivers MD [address] [place] [address] PCP - General Family Medicine 07/27/20 Power Equipment Technology Instructor Relationship Specialty Start Date End Date Deepak Rivers MD [address] [place] [address] PCP - General Family Medicine 07/27/20 Power Equipment Technology Instructor Relationship Specialty Start Date End Date Deepak Rivers MD [address] [place] [address] PCP - General Family Medicine 07/27/20 Power Equipment Technology Instructor Relationship Specialty Start Date End Date Deepak Rivers MD [address] [place] [address] PCP - General Family Medicine 07/27/20 Power Equipment Technology Instructor Relationship Specialty Start Date End Date Deepak Rivers MD [address] [place] [address] PCP - General Family Medicine 07/27/20 Power Equipment Technology Instructor Relationship Specialty Start Date End Date Deepak Rivers MD [address] [facility] [place] [address] PCP - General Family Medicine 07/27/20 Power Equipment Technology Instructor Relationship Specialty Start Date End Date Deepak Rivers MD [address] [place] [address] PCP - General Family Medicine 07/27/20 Power Equipment Technology Instructor Relationship Specialty Start Date End Date Deepak Rivers MD [address] [facility] [place] [address] PCP - General Family Medicine 07/27/20 Power Equipment Technology Instructor Relationship Specialty Start Date End Date Deepak Rivers MD [address] [place] [address] PCP - General Family Medicine 07/27/20 Power Equipment Technology Instructor Relationship Specialty Start Date End Date Deepak Rivers MD [address] [place] [address] PCP - General Family Medicine 07/27/20 Power Equipment Technology Instructor Relationship Specialty Start Date End Date Deepak Rivers MD [address] [place] [address] PCP - General Family Medicine 07/27/20 Power Equipment Technology Instructor Relationship Specialty Start Date End Date Deepak Rivers MD [address] [place] [address] PCP - General Family Medicine 07/27/20 Nuzhat Estrada, [place] APPRENTICE.SPINAL SURGEON [address] [place] [address] [facility] 07/24/24 Nigel Viveros APRN.SPINAL SURGEON [address] [place] [address] [facility] 08/02/24 Power Equipment Technology Instructor Relationship Specialty Start Date End Date Deepak Rivers MD [address] [place] [address] PCP - General Family Medicine 07/27/20 Nuzhat Estrada APRN.SPINAL SURGEON [address] [place] [address] [employer] Family [facility] 07/24/24 Nigel Viveros APRN.SPINAL SURGEON [address] [place] [address] Orange Grower [facility] 08/02/24 Power Equipment Technology Instructor Relationship Specialty Start Date End Date Deepak Rivers MD [address] [place] [address] PCP - General Family Medicine 07/27/20 Nuzhat Estrada APRN.SPINAL SURGEON [address] [place] [address] Orange [employer]er [facility] 07/24/24 Nigel Viveros APRN.SPINAL SURGEON [address], [place] [id number] [employer] [facility] 08/02/24 Team Status: Active Member Role Status Dates Dr. Deepak Rivers MD Primary Care Provider Active Team Status: Inactive Member Role Status Dates Dr. Deepak Rivers MD Primary Care Provider Active Start: November 03, 2024 End: November 03, 2024 Dr. Luis Geiger DO Emergency Provider Active Start: November 03, 2024 End: November 03, 2024 Team Status: Inactive Member Role Status Dates Dr. Deepak Rivers MD Primary Care Provider Active Start: November 03, 2024 End: November 03, 2024 RAISSA Mendiola Attending Provider Active St art: November 03, 2024 End: November 03, 2024 RAISSA Mendiola Referring Provider Active St art: November 03, 2024 End: November 03, 2024 Team Status: Active Member Role Status Dates Dr. Deepak Rivers MD Primary Care Provider Active Start: November 04, 2024 Lyly Teixeira PA Attending Provider Active St art: November 04, 2024 Lyly Teixeira PA Referring Provider Active St art: November 04, 2024 Team Status: Active Member Role Status Dates Dr. Deepak Rivers MD Primary Care Provider Active Start: November 04, 2024 End: November 04, 2024 Dr. Maurice Cutler MD Attending Provider Active S tart: November 04, 2024 End: November 04, 2024 RAISSA Mendiola Referring Provider Active St art: November 04, 2024 End: November 04, 2024 Team Status: Inactive Member Role Status Dates Dr. Deepak Rivers MD Primary Care Provider Active Start: November 04, 2024 End: November 04, 2024 RAISSA Mendiola Attending Provider Active St art: November 04, 2024 End: November 04, 2024 RAISSA Mendiola Referring Provider Active St art: November 04, 2024 End: November 04, 2024 Team Status: Inactive Member Role Status Dates Dr. Deepak Rivers MD Primary Care Provider Active Start: November 03, 2024 End: November 03, 2024 Dr. Luis Geiger DO Attending Provider Active Start: November 03, 2024 End: November 03, 2024 Dr. Luis Geiger DO Emergency Provider Active Start: November 03, 2024 End: November 03, 2024 Team Status: Inactive Member Role Status Dates Dr. Deepak Rivers MD Primary Care Provider Active Start: November 21, 2024 End: November 22, 2024 Dr. Man Flores DO Admit Provider Active Start: November 21, 2024 End: November 22, 2024 Dr. Man Flores DO Attending Provider Active Start: November 21, 2024 End: November 22, 2024 Dr. Man Flores DO Referring Provider Active Start: November 21, 2024 End: November 22, 2024 [employer] Instructor Relationship Specialty Start Date End Date Deepak Rivers MD [address] [place] [address] PCP - General Family Medicine 07/27/20 Nuzhat Estrada APRN.SPINAL SURGEON [address] [place] [address] [facility] 07/24/24 Nigel Vievros APRN.SPINAL SURGEON [address] [facility] [place] [address] [facility] 08/02/24 [employer] Instructor Relationship Specialty Start Date End Date Deepak Rivers MD [address] [place], [place] [address] PCP - General Family Medicine 07/27/20 Nigel Viveros APRN.SPINAL SURGEON [address] [facility] [place] [address] [facility] 08/02/24 Team Status: Active Member Role Status Dates Dr. Deepak Rivers MD Primary Care Provider Active Start: February 06, 2025 Seb Ernandez MD Referring Provider Active Star t: February 06, 2025 Seb Ernandez MD Emergency Provider Active Star t: February 06, 2025 Dr. Aakash Rincon DO Admit Provider Active Start: February 06, 2025 Dr. Aakash Rincon DO Attending Provider Active Start: February 06, 2025 Goals (unrecognized section and content) Goals may be documented in a n alternate sectionGoals may be documented in an alternate sectionGoals may be documented in an alternate section FOR RECORDS PERTAINING TO PATIENTS WHO ARE OR HAVE BEEN ENROLLED IN A CHEMICAL DEPENDENCY/SUBSTANCEABUSE PROGRAM, SOME INFORMATION MAY BE OMITTED. This clinical summary was aggregated from multiple sources. Caution should be exercised in using it in the provision of clinical care. This summary normalizes information from multiple sources, and as a consequence, information in this document may materially change the coding, format and clinical context of patient data. In addition, data may be omitted in some cases. CLINICAL DECISIONS SHOULD BE BASED ON THE PRIMARY CLINICAL RECORDS. [facility] [employer] [facility]. provides no warranty or guarantee of the accuracy or completeness of information in this document.
--- OUTSIDE RECORDS SUMMARY | 2025-02-06 23:22 | XMS RPT_ITS | CCD ---
Author Organization [facility] Care Team Providers Care General Assembler Name Role Phone Deepak Rivers MD Primary Care Provider Deepak Rivers MD Primary Care Provider Natalie FUEL CELL BINDER.Nuzhat SHAY Unavailable Arsen FUEL CELL BINDER.Nigel SHAY Unavailable Dr. Deepak Rivers MD Primary Care Provider Dr. Luis Geiger DO Emergency Provider Lyly Hartmann Attending Provider Lyly Hartmann Referring Provider Dr. Maurice Cutler MD Attending Provider Dr. Luis Geiger DO Attending Provider Dr. Man Flores DO Admit Provider Dr. Man Flores DO Attending Provider Dr. Man Flores DO Referring Provider Natalie FUEL CELL BINDER.Nuzhat SHAY Unavailable Unavail able DEEPAK RIVERS Primary [...] Teixeira Attending Unavailable Lyly Teixeira Referring Unavailable [facility], Deepak Primary Care Unavailable Man Flores Admitting Unavailable Man Flores Attending Unavailable Man Flores Referring Unavailable [facility] Primary Care Unavailable Maurice Cutler Attending Unavailable Puneet Lyly Referring Unavailable [facility] Primary Care Unavailable Lyly Teixeira Attending Unavailable Luis Geiger Attending Unavailable [facility] Primary Care Unavailable Seb Ernandez MD Referring Provider Seb Ernandez MD Emergency Provider Dr. Aakash Rincon DO Admit Provider Unavail able Dr. Aakash Rincon DO Attending Provider Unav ailable Allergies Allergy Classification Reported Allergen(s) Allergy Type Date of Onset Reaction(s) Facility (1 source) Unable to Assess Drug allergy (disorder) 11-03-2024 [facility] Repository Medications Current Medications Medication Drug Class(es) Dates Sig (Normalized) Sig (Original) [id number] 200 actuat albuterol 0.09 mg/actuat metered dose [...] Start: 07-17-2017 take 1 capsule by mo [facility] once daily cholecalciferol, vitamin D3, (VITAMIN D3) [...] on above: Take 1 capsule by mo [facility] once daily. zolpidem tartrate 12.5 mg extended [...] Auto (Unsp spec) [#/Vol] 1.06 10*3/uL 0.83-4.51 [facility] Absolute neutrophil countOrd ered By: Seb Ernandez on 02-06-2025 Neutrophils (Bld) [#/Vol] 23.1 10*3/uL High 2.0-7.7 [facility] Activated partial thrombopla stin time (aPTT) in platelet poor plasma by coagulation aOrdered By: Seb Ernandez on 02-06-2025 aPTT Coag (PPP) [Time] 30.6 s 24.1-36.2 [facility] Anion gap in Serum or Plasma Ordered By: Seb Ernandez on 02-06-2025 Anion gap [Moles/Vol] 18 mmol/L High 5-15 [facility] Automated lymphocyte count a s percentage of total leukocytesOrdered By: Seb Ernandez on 02-06-2025 Lymphocytes/100 WBC Auto (Unsp spec) 4.1 % Low 19-41 [facility] BUN/creatinine ratioOrdered By: Seb Ernandez on 02-06-2025 Urea nitrogen/Creatinine [Mass ratio] 13.6 mg/mg 10-20 [facility] Basophil percentageOrdered B y: Seb Ernandez on 02-06-2025 Basophils/100 WBC (Bld) 0.7 % 0-1 [facility] Bilirubin Test strip Ql (U)O rdered By: Seb Ernandez on 02-06-2025 Bilirubin Ql (U) 1 mg/dL High Negative [facility] Comment on above: COLOR OF URINE MAY A FFECT DIPSTICK RESULTS. Bilirubin, totalOrdered By: Seb Ernandez on 02-06-2025 Bilirubin [Mass/Vol] 0.60 mg/dL 0.00-1.30 [facility] Blood manual differential co mment interpretation (narrative result)Ordered By: Seb Ernandez on 02-06-2025 Manual differential comment Stevie (Bld) [Interp] SCANNED [facility] Carbon dioxide, total [Moles /volume] in Central venous bloodOrdered By: Seb Ernandez on 02-06-2025 CO2 [Moles/Vol] 22.3 mmol/L 21.0-32.0 [facility] Chloride assayOrdered By: Nilesh Ernandez on 02-06-2025 Chloride [Moles/Vol] 89 mmol/L Low 98-108 [facility] Eosinophil percentageOrdered By: Seb Ernandez on 02-06-2025 Eosinophils/100 WBC (Bld) 0.0 % 0-5 [facility] Erythrocyte distribution wid th ratioOrdered By: Seb Ernandez on 02-06-2025 Erythrocyte distribution width (RBC) [Ratio] 14.0 % 11.6-14.6 [facility] Erythrocyte distribution wid th standard deviationOrdered By: Seb Ernandez on 02-06-2025 Erythrocyte distribution width (RBC) [Ratio] 47.1 fl High 35.1-43.9 [facility] Glomerular filtration rate ( GFR) estimation/1.73 sq m using serum, plasma, or whole bOrdered By: Seb Ernandez on 02-06-2025 GFR/1.73 sq M.predicted among non-blacks MDRD (S/P/Bld) [Vol rate/Area] 20 mL/min/{1.73_m2} Low >60 [facility] Comment on above: mL/min/1.73m2 CKD-EP I Creatinine Equation (2020) Hematocrit Auto (Bld) [Volum e fraction]Ordered By: Seb Ernandez on 02-06-2025 Hematocrit (Bld) [Volume fraction] 41.6 % 37-47 [facility] Hemoglobin measurementOrdere d By: Seb Ernandez on 02-06-2025 Hemoglobin (Bld) [Mass/Vol] 13.7 g/dL 12.0-15.0 [facility] Hyaline casts LM.LPF (Urine sed) [#/Area]Ordered By: Seb Ernandez on 02-06-2025 Hyaline casts (Urine sed) [#/Area] 5 /[LPF] 0-5 [facility] Immature granulocytes/100 WB C Auto (Bld)Ordered By: Seb Ernandez on 02-06-2025 Immature granulocytes/100 WBC (Bld) 4.300 % High 0.0-0.9 [facility] Comment on above: IG% - Immature Granu locytes (promyelocytes, myelocytes and metamyelocytes) > 1% indicates that a LEFT SHIFT is Present. International normalized rat io (INR) calculationOrdered By: Seb Ernandez on 02-06-2025 INR Coag (Bld) [Relative time] 1.3 {INR} [facility] Ketones Test strip Ql (U)Ord ered By: Seb Ernandez on 02-06-2025 Ketones Ql (U) 5 mg/dl High Negative [facility] Laboratory - Chemistry and C hemistry - challengeOrdered By: Seb Ernandez on 02-06-2025 AST [Catalytic activity/Vol] 39 U/L High <32 [facility] Comment on above: Hemolysis present, R esults could be affected. Lactic acid measurementOrder ed By: eSb Ernandez on 02-06-2025 Lactate [Moles/Vol] 3.4 mmol/L High 0.0-2.0 [facility] Comment on above: Critical Result(s) C alled at: 2109 to Stoney GRAVES by: karlie. Results read back by same. MCV (mean corpuscular volume ) determinationOrdered By: Seb Ernandez on 02-06-2025 MCV (RBC) [Entitic vol] 91.8 fL 81-99 [facility] Mean corpuscular hemoglobin (MCH) determinationOrdered By: Seb Ernandez on 02-06-2025 MCH (RBC) [Entitic mass] 30.2 pg 27.0-32.0 [facility] Mean corpuscular hemoglobin concentration (MCHC) determinationOrdered By: Seb Ernandez on 02-06-2025 MCHC (RBC) [Mass/Vol] 32.9 g/dL 32-36 [facility] Mean platelet volume determi nationOrdered By: Seb Ernandez on 02-06-2025 Platelet mean volume (Bld) [Entitic vol] 11.8 fL 6.2-12.0 [facility] Microscopic analysis of urin e for red blood cells (RBC)Ordered By: Seb Ernandez on 02-06-2025 Microscopic analysis of urine for red blood cells (RBC) 0 SEEN /hpf 0-5 [facility] Monocyte percentageOrdered B y: Seb Ernandez on 02-06-2025 Monocytes/100 WBC (Bld) 2.5 % 0-10 [facility] Mucus LM Ql (Urine sed)Order ed By: Seb Ernandez on 02-06-2025 Mucus Ql (Urine sed) 0 SEEN /hpf [facility] Neutrophil percentageOrdered By: Seb Ernandez on 02-06-2025 Neutrophils/100 WBC (Bld) 88.4 % High 47-70 [facility] Nitrite Test strip Ql (U)Ord ered By: Seb Ernandez on 02-06-2025 Nitrite Ql (U) Negative Negative [facility] Nucleated red blood cell per centageOrdered By: Seb Ernandez on 02-06-2025 Nucleated RBC/100 WBC (Bld) [Ratio] 0 % 0-5 [facility] Platelet countOrdered By: Nilesh Ernandez on 02-06-2025 Platelets (Bld) [#/Vol] 214 10*3/uL 150-450 [facility] Potassium measurement (mass/ volume)Ordered By: Seb Ernandez on 02-06-2025 Potassium (Unsp spec) [Mass/Vol] 5.3 mmol/L High 3.3-5.1 [facility] Comment on above: Hemolysis present, R esults could be affected. Protein Test strip Ql (U)Ord ered By: Seb Ernandez on 02-06-2025 Protein Ql (U) 500 mg/dl High Negative [facility] Prothrombin timeOrdered By: Seb Ernandez on 02-06-2025 PT Coag (PPP) [Time] 16.2 s High 11.7-14.9 [facility] RBC Auto (Bld) [#/Vol]Ordere d By: Seb Ernandez on 02-06-2025 RBC (Bld) [#/Vol] 4.53 10*6/uL 4.2-5.4 [facility] Serum creatinine measurement (mass/volume)Ordered By: Seb Ernandez on 02-06-2025 Creatinine [Mass/Vol] 2.59 mg/dL High 0.70-1.20 [facility] Serum globulin measurementOr dered By: Seb Ernandez on 02-06-2025 Globulin (S) [Mass/Vol] 4.3 g/dL High 2.2-4.2 [facility] Serum glucose measurement (m ass/volume)Ordered By: Seb Ernandez on 02-06-2025 Glucose [Mass/Vol] 108 mg/dL High 70-99 [facility] Serum or plasma alanine irizarry otransferase (ALT) measurementOrdered By: Seb Ernandez on 02-06-2025 ALT [Catalytic activity/Vol] 23 U/L <35 [facility] Comment on above: Hemolysis present, R esults could be affected. Serum or plasma albumin kenneth urement (mass/volume)Ordered By: Seb Ernandez on 02-06-2025 Albumin [Mass/Vol] 3.6 g/dL 3.4-4.8 [facility] Serum or plasma albumin/glob ulin mass ratioOrdered By: Seb Ernandez on 02-06-2025 Albumin/Globulin [Mass ratio] 0.9 {ratio} 0.9-2.4 [facility] Serum or plasma alkaline ruddy sphatase measurementOrdered By: Seb Ernandez on 02-06-2025 ALP [Catalytic activity/Vol] 147 U/L High 35-104 [facility] Serum or plasma calcium kenneth urement (mass/volume)Ordered By: Seb Ernandez on 02-06-2025 Calcium [Mass/Vol] 9.2 mg/dL 7.6-11.0 [facility] Serum or plasma urea nitroge n measurement (mass/volume)Ordered By: Seb Ernandez on 02-06-2025 Urea nitrogen [Mass/Vol] 35 mg/dL High 4-19 [facility] Sodium levelOrdered By: Seb Ernandez on 02-06-2025 Sodium [Moles/Vol] 130 mmol/L Low 133-145 [facility] Squamous epithelial cells de tection in urine sediment by light microscopyOrdered By: Seb Ernandez on 02-06-2025 Epithelial cells.squamous LM Ql (Urine sed) 5-10 SEEN /hpf 5-10 [facility] Total proteinOrdered By: Deneen Ernandez on 02-06-2025 Protein [Mass/Vol] 7.9 g/dL 5.9-8.4 [facility] Urine clarityOrdered By: Deneen Ernandez on 02-06-2025 Clarity (U) Cloudy Clear [facility] Urine color determinationOrd ered By: Seb Ernandez on 02-06-2025 Color (U) Yellow Yellow [facility] Urine glucose detectionOrder ed By: Seb Ernandez on 02-06-2025 Glucose Ql (U) Normal mg/dl Normal [facility] Urine leukocyte esterase det ection by dipstickOrdered By: Seb Ernandez on 02-06-2025 Leukocyte esterase Test strip Ql (U) 500 /ul High Negative [facility] Urine pHOrdered By: Seb beverly on 02-06-2025 pH (U) 5.0 [pH] 5.0 - 8.0 [facility] Urine sediment bacteria coun t by microscopy (number/high power field)Ordered By: Seb Ernandez on 02-06-2025 Bacteria LM.HPF (Urine sed) [#/Area] 4 /[HPF] None Seen [facility] Urine specific gravity measu rementOrdered By: Seb Ernandez on 02-06-2025 Specific gravity (U) [Rel density] 1.015 1.002-1.030 [facility] Urine urobilinogen measureme ntOrdered By: Seb Ernandez on 02-06-2025 Urobilinogen Ql (U) Normal mg/dl Normal [facility] White blood cell (WBC) count Ordered By: Seb Ernandez on 02-06-2025 WBC (Bld) [#/Vol] 26.1 10*3/uL High 4.4-11.0 [facility] White blood cell countOrdere d By: Seb Ernandez on 02-06-2025 White blood cell count >100 SEEN /hpf 0-5 [facility] CNPNon 12-09-2024 CNPN Telephone ([facility]) SAVITAADRIANNA ([id number]) 1960 F Date Time Provider Department 12/09/24 [facility] During your visit today, we recorded the following information about you: Pamella Mart, RN 12/09/2024 10:13 AM Signed Nuzhat- PT- [facility]- reports she saw pt today and [...] Encounter Status:Closed by [facility] ADRIANNA BARNEY ([id number]) 1960 F Date Time Provider Department 12/05/[facility] During your visit today, we recorded the following information about you: Katlyn Harris RN 12/05/2024 11:01 AM Signed Nuzhat PT with [facility] calls to let provider know that [...] Encounter Status:Closed by NIGEL VIVEROS on 12/06/24 [facility] Anion gap in Serum or Plasma Ordered By: Man Flores on 11-22-2024 Anion gap [Moles/Vol] 13 mmol/L 5-15 [facility] Automated blood erythrocyte countOrdered By: Man Flores on 11-22-2024 RBC (Bld) [#/Vol] 3.88 10*6/uL Low 4.2-5.4 [facility] Comment on above: Performed By: #### L 100.0500, L500.2500 #### [facility] [address] [place], [address] Automated blood hematocrit ( percentage)Ordered By: Man Flores on 11-22-2024 Hematocrit (Bld) [Volume fraction] 36.5 % Low 37-47 [facility] Comment on above: Performed By: #### L 100.0500, L500.2500 #### [facility] [address] [place], [address] BUN/creatinine ratioOrdered By: Man Flores on 11-22-2024 Urea nitrogen/Creatinine [Mass ratio] 13.6 mg/mg - [facility] Basic Metabolic Profile (BMP )on 11-22-2024 BUN/CRE 13.6 RATIO Normal - [facility] Comment on above: Performed By: #### L 100.0500, L500.2500 #### [facility] [address] [place], [address] Calcium [Mass/Vol] 9.4 mg/dL Normal 7.6-11.0 [facility] Comment on above: Performed By: #### L 100.0500, L500.2500 #### [facility] [address] [place], [address] Chloride [Moles/Vol] 102 mmol/L Normal 98-108 [facility] Comment on above: Performed By: #### L 100.0500, L500.2500 #### [facility] [address] [place], [address] CO2 [Moles/Vol] 22.8 mmol/L Normal 21.0-32.0 [facility] Comment on above: Performed By: #### L 100.0500, L500.2500 #### [facility] [address] [place], [address] Creatinine [Mass/Vol] 0.60 mg/dL Low 0.70-1.20 [facility] Comment on above: Performed By: #### L 100.0500, L500.2500 #### [facility] [address] [place], [address] ECRCL 117.85 ml/min Normal 50-250 [facility] Comment on above: Performed By: #### L 100.0500, L500.2500 #### [facility] [address] [place], [address] GAP 13 Normal 5-15 [facility] Comment on above: Performed By: #### L 100.0500, L500.2500 #### [facility] [address] [place], [address] GFR/1.73 sq M.predicted among non-blacks MDRD (S/P/Bld) [Vol rate/Area] 101 mL/min/{1.73_m2} Normal >60 [facility] Comment on above: Result Comment: mL/m in/1.73m2 CKD-EPI Creatinine Equation (2020) Performed By: #### L 100.0500, L500.2500 #### [facility] [address] [place], [address] Glucose [Mass/Vol] 133 mg/dL High 70-99 [facility] Comment on above: Performed By: #### L 100.0500, L500.2500 #### [facility] [address] [place], [address] Potassium [Moles/Vol] 4.3 mmol/L Normal 3.3-5.1 [facility] Comment on above: Performed By: #### L 100.0500, L500.2500 #### [facility] [address] [place], [address] Sodium [Moles/Vol] 137 mmol/L Normal 133-145 [facility] Comment on above: Performed By: #### L 100.0500, L500.2500 #### [facility] [address] [place], [address] Urea nitrogen [Mass/Vol] 8 mg/dL Normal 4-19 [facility] Comment on above: Performed By: #### L 100.0500, L500.2500 #### [facility] [address] [place], [place], [address] CBC-Complete Blood Cnt No Di ffon 11-22-2024 RDW SD 45.5 fl High 35.1-43.9 [facility] Comment on above: Performed By: #### L 100.0500, L500.2500 #### [facility] [address] [place], [place], [id number] Carbon dioxide, total [Moles /volume] in Central venous bloodOrdered By: Man Flores on 11-22-2024 CO2 [Moles/Vol] 22.8 mmol/L 21.0-32.0 [facility] Chloride assayOrdered By: Rimma Flores on 11-22-2024 Chloride [Moles/Vol] 102 mmol/L 98-108 [facility] Erythrocyte distribution wid th (RBC) [Ratio]Ordered By: Man Flores on 11-22-2024 Erythrocyte distribution width (RBC) [Entitic vol] 45.5 fL High 35.1-43.9 [facility] Erythrocyte distribution wid th ratioOrdered By: Man Flores on 11-22-2024 Erythrocyte distribution width (RBC) [Ratio] 13.2 % 11.6-14.6 [facility] Comment on above: Performed By: #### L 100.0500, L500.2500 #### [facility] [address] [place], [place], [address] Erythrocyte distribution wid th standard deviationOrdered By: Man Flores on 11-22-2024 Erythrocyte distribution width (RBC) [Ratio] 45.5 fl High 35.1-43.9 [facility] Estimation of creatinine danitza aranceOrdered By: Man Flores on 11-22-2024 Estimated Creatinine Clearance Calc 117.85 ml/min 50-250 [facility] GFR/1.73 sq M.predicted sia g non-blacks MDRD (S/P/Bld) [Vol rate/Area]Ordered By: Man Flores on 11-22-2024 Estimated GFR (MDRD) Non-Af Amer 101 >60 [facility] Comment on above: mL/min/1.73m2 CKD-EP I Creatinine Equation (2020) Glomerular filtration rate ( GFR) estimation/1.73 sq m using serum, plasma, or whole bOrdered By: Man Flores on 11-22-2024 GFR/1.73 sq M.predicted among non-blacks MDRD (S/P/Bld) [Vol rate/Area] 101 mL/min/{1.73_m2} >60 [facility] Comment on above: mL/min/1.73m2 CKD-EP I Creatinine Equation (2020) Hemoglobin measurementOrdere d By: Man Flores on 11-22-2024 Hemoglobin (Bld) [Mass/Vol] 12.3 g/dL 12.0-15.0 [facility] Comment on above: Performed By: #### L 100.0500, L500.2500 #### [facility] [address] [place], [address] MCV (mean corpuscular volume ) determinationOrdered By: Man Flores on 11-22-2024 MCV (RBC) [Entitic vol] 94.1 fL 81-99 [facility] Comment on above: Performed By: #### L 100.0500, L500.2500 #### [facility] [address] [place], [address] Mean corpuscular hemoglobin (MCH) determinationOrdered By: Man Flores on 11-22-2024 MCH (RBC) [Entitic mass] 31.7 pg 27.0-32.0 [facility] Comment on above: Performed By: #### L 100.0500, L500.2500 #### [facility] [address] [place], [address] Mean corpuscular hemoglobin concentration (MCHC) determinationOrdered By: Man Flores on 11-22-2024 MCHC (RBC) [Mass/Vol] 33.7 g/dL 32-36 [facility] Comment on above: Performed By: #### L 100.0500, L500.2500 #### [facility] [address] [place], [address] Mean platelet volume determi nationOrdered By: Man Flores on 11-22-2024 Platelet mean volume (Bld) [Entitic vol] 12.4 fL High 6.2-12.0 [facility] Comment on above: Performed By: #### L 100.0500, L500.2500 #### [facility] [address] [place], [address] Platelet countOrdered By: Rimma Flores on 11-22-2024 Platelets (Bld) [#/Vol] 283 10*3/uL 150-450 [facility] Comment on above: Performed By: #### L 100.0500, L500.2500 #### [facility] [address] [place], [address] Potassium (Unsp spec) [Mass/ Vol]Ordered By: Man Flores on 11-22-2024 Potassium [Moles/Vol] 4.3 mmol/L 3.3-5.1 [facility] Potassium measurement (mass/ volume)Ordered By: Man Flores on 11-22-2024 Potassium (Unsp spec) [Mass/Vol] 4.3 mmol/L 3.3-5.1 [facility] Serum creatinine measurement (mass/volume)Ordered By: Man Flores on 11-22-2024 Creatinine [Mass/Vol] 0.60 mg/dL Low 0.70-1.20 [facility] Serum glucose measurement (m ass/volume)Ordered By: Man Flores on 11-22-2024 Glucose [Mass/Vol] 133 mg/dL High 70-99 [facility] Serum or plasma calcium kenneth urement (mass/volume)Ordered By: Man Flores on 11-22-2024 Calcium [Mass/Vol] 9.4 mg/dL 7.6-11.0 [facility] Serum or plasma urea nitroge n measurement (mass/volume)Ordered By: Man Flores on 11-22-2024 Urea nitrogen [Mass/Vol] 8 mg/dL 4-19 [facility] Sodium levelOrdered By: Scott Flores on 11-22-2024 Sodium [Moles/Vol] 137 mmol/L 133-145 [facility] White blood cell (WBC) count Ordered By: Man Flores on 11-22-2024 WBC (Bld) [#/Vol] 15.4 10*3/uL High 4.4-11.0 [facility] Comment on above: Performed By: #### L 100.0500, L500.2500 #### [facility] [address] [place], [place], [id number] Bedside Glucoseon 11-21-2024 FINGERSTICK GLU 106 mg/dL Normal 74-106 [facility] Comment on above: Result Comment: MAGNOLIA SHAH OF PATIENT CARE PER NURSING PROTOCOL Performed By: #### L 501.080 #### [facility] [address] [place], [place], [id number] Decalcification bone/plaqueo n 11-21-2024 Decalcification bone/plaque Patient Age/Sex Location Account Attending Physician ADRIANNA BARNEY 64/F MS3 [id number] Dr. Man Flores, DO Specimen: [id number] Received: 11/22/24 Status: VLAD Joseph Num: [id number] Spec Type: HUMERUS Subm Dr: Dr. Man Flores, [facility] OPERATION: Total shoulder replacement, reverse PRE-OP DIAGNOSIS: [...] smooth. Sectioning reveals firm and osborne surfaces. Medical Oncologist sections submitted in A1 following decalcification. [facility] 11-22-2024 CPT:91772,00850 Patient Age/Sex Location Account Attending Physician ADRIANNA BARNEY 64/F MS3 [id number] Dr. Man Flores, DO Signed (signature on file) Dr. Eleonora Garcia MD 12/13/24 0914 Normal [facility] Comment on above: Performed By: #### P DEC #### [facility] [address] [place] [address]. [place], [place], [id number] [facility] deOrdered By: Man Flores on 11-21-2024 Bedside Glucose ([facility]) 106 mg/dL 74-106 [facility] Comment on above: MANAGEMENT OF PATIEN T CARE PER NURSING PROTOCOL Glucose [Mass/Vol] 106 mg/dL 74-106 [facility] Comment on above: MANAGEMENT OF PATIEN T CARE PER NURSING PROTOCOL MR/POSTOP.ANEon 11-21-2024 MR/POSTOP.ANE [facility] Medical Records Department [address] [place] [address] Anesthesia Postop Eval I 11/21/24 1532 MR#: [id number] Acct: [id number] Name: ADRIANNA BARNEY Rep #: [id number] : 1960 64 From: Matthew Fish CRNA PCP: Dr. Deepak Rivers MD Status:REG SDC Y Race: C Location: [place] [address] Anesthesia: Postop Eval I Current Vital Signs [...] completed: Yes 11/21/24 1533 Date Matthew Fish STILL OPERATOR BATCH OR CONTINUOUS Cosigner Signature: Date CC: Signed Normal [facility] MR/[id number] 11-21-2024 /[facility] Medical Records Department [address] [place] [address] Anesthesia Postop Eval II 11/21/24 1639 MR#: [id number] Acct: [id number] Name: ADRIANNA BARNEY Rep #: [id number] : 1960 64 From: Shyam Sanchez MD PCP: Dr. Deepak Rivers MD Status:ADM IRINEO Y Race: C Location: Anesthesia Postop Eval I Sum Postop Eval Completion status Anesthesia document: Postop Eval 1 completed: Yes Anesthesia Postop Eval I Summary Anesthesia Postop Eval I Summary: Anesthesia Postop Eval I: Assessment Summary Airway patent Yes 11/21/24 15:33 STILL OPERATOR BATCH OR CONTINUOUS.JBLOU Spontaneous unlabored Yes 11/21/24 15:33 STILL OPERATOR BATCH OR CONTINUOUS.JBLOU respirations Mental status Awake,Calm 11/21/24 15:33 STILL OPERATOR BATCH OR CONTINUOUS.JBLOU nausea No 11/21/24 15:33 STILL OPERATOR BATCH OR CONTINUOUS.JBLOU Vomiting No 11/21/24 15:33 STILL OPERATOR BATCH OR CONTINUOUS.JBLOU Anesthesia Postop Eval I: Fluid Summary Crystalloid volume administer 1,500 11/21/24 15:33 STILL OPERATOR BATCH OR CONTINUOUS.JBLOU (ml) Colloids volume administered ( ml) Blood Product volume administered (ml) Total IV fluid infused 1,500 11/21/24 15:33 STILL OPERATOR BATCH OR CONTINUOUS.JBLOU Anesthesia Postop Eval I: Summary Notes Anesthesia Complication No 11/21/24 15:33 STILL OPERATOR BATCH OR CONTINUOUS.JBLOU Anesthesia Complication Comment: Post-operative progress note Anesthesia: Postop Eval II Evaluation Mental status: Awake Pain Level: 0 nausea: No Vomiting: No 11/21/24 1639 Date Shyam Sanchez MD Cosigner Signature: Date CC: Signed Normal [facility] Operative Reporton 5 Operative Report [facility] Medical Records Department [address] [place] [address] Operative Report 11/21/24 1549 MR#: [id number] Acct: [id number] Name: ADRIANNA BARNEY Rep #: [id number] : 1960 64 From: Man Flores DO PCP: Dr. Deepak Rivers MD Status:[facility] Location: [place] [address] Operative Report (Standard) Operative Information Date of Procedure: 11/21/24 Pre-Operative Diagnosis: Right proximal humerus four-part fracture Post-Operative Diagnosis: Right proximal humerus four-part fracture Surgery/Procedure Performed: Right reverse total shoulder arthroplasty stores naval: Yes Spray Drier: Padam Grace Tasks completed by program assistant: Opening closing, Dissecting tissue, Implanting device, Hemostasis: Electrocautery and Retracting Additional operations and intelligence assistant?: No Type of Anesthesia: General/Regional RN [...] head Description of surgery: Patient arrived to [facility] morning of the procedure and was [...] positioned in the beachchair position. A well-padded head waiter was applied. The nonoperative extremity was placed [...] used the (more content not included)... Normal [facility] Shoulder One Viewon 11-22-19 25 Shoulder One View [facility] Imaging Services [address] [place] [address] Shoulder One View MR#: [id number] Acct: [id number] Name: ADRIANNA BARNEY Rep #: [id number] : 1960 F 64 From: Jorge Adams i, MD PCP: Dr. Deepak Rivers MD Status: ADM IRINEO Study: Shoulder One View Date of Exam: 11/21/24 Exam# [id number] Ordering Dr: Man Flores DO PROCEDURE: SHOULDER [...] right shoulder arthroplasty. Anatomic alignment. Reading Location: [facility] CC: Dr. Deepak Rivers MD; Dr. Man Flores DO Research Microbiologist: Signed Normal [facility] Shoulder min 2 Viewson 11-21 Shoulder min 2 Views [facility] Imaging Services [address] [place] [address] Shoulder min 2 Views MR#: [id number] Acct: [id number] Name: ADRIANNA BARNEY Rep #: [id number] : 1960 F 64 From: Kori Titus nd, MD PCP: Dr. Deepak Rivers MD Status: ADM IRINEO Study: Shoulder min 2 Views Date of Exam: 11/21/24 Exam# [id number] Ordering Dr: Man Flores DO PROCEDURE: SHOULDER [...] Postoperative right reverse shoulder arthroplasty. Reading Location: [facility] CC: Dr. Deepak Rivers MD; Dr. Man Flores DO Research Microbiologist: Signed Normal [facility] MRSA/SAID NASAL SCREENon MRSA+SAID SCRN Reason for Exam: PRE OP MRSA MRSA Negative S. AUREUS S. aureus Negative Normal [facility] Comment on above: Performed By: #### M 100.651 ####[facility] [id number] [place], [address] MRSA screenOrdered By: Frankie Flores on 11-15-2024 MRSA DNA MONIE+probe Ql (Unsp spec) [facility] Nasal Screen MRSA/MSSA [facility] Magnesiumon 11-15-2024 Magnesium [Mass/Vol] 1.7 mg/dL Normal 1.5-2.2 [facility] Comment on above: Performed By: #### L 501.5200 #### [facility] Laboratory [address] [place], [address] Magnesium (Unsp spec) [Mass/ Vol]Ordered By: Shyam Sanchez on 11-15-2024 Magnesium [Mass/Vol] 1.7 mg/dL 1.5-2.2 [facility] Magnesium measurement (mass/ volume)Ordered By: Shyam Sanchez on 11-15-2024 Magnesium (Unsp spec) [Mass/Vol] 1.7 mg/dL 1.5-2.2 [facility] 12 Lead EKGon 11-04-2024 12 Lead EKG [facility] Cardiovascular Services [address] [place] [address] 12 Lead EKG 11/04/24 0852 MR#: [id number] Acct: [id number] Name: ADRIANNA BARNEY Rep #: [id number] : 1960 64 From: Maurice Cutler MD [...] Normal ECG Confirmed by MAURICE CUTLER MD ([id number]), editor index SHERRY GRAYSON ([id number]) on 11/04/2024 12:45:44 PM Referred By: Lyly Teixeira Confirmed By: MAURICE CUTLER MD 11/04/24 1245 Date Maurice Cutler MD CC: RAISSA Mendiola; Dr. Deepak Rivers MD Signed Normal [facility] Electrocardiogram reportOrde red By: Maurice Cutler on 11-04-2024 EKG study [facility] Cardiovascular Services [address] [place] [address] 12 Lead EKG 11/04/24 0852 MR#: [id number] Acct: [id number] Name: ADRIANNA BARNEY Rep #:[id number] : 1960 64 From: Maurice Cutler MD Attending Dr: RAISSA Mendiola St atus: REG CLI Ordering Dr: Lyly Teixeira Date: 11/04/24 Location: [facility] Sex: F C Admitted: Test Reason : PRE OP Blood Pressure : */* mmHG Vent. Rate : 72 BPM Atrial Rate : 72 BPM P-R Int : 124 ms QRS Dur : 86 ms QT Int : 398 ms P-R-T Axes : 44 -6 67 degrees QTcB Int : 435 ms Normal sinus rhythm Normal ECG Confirmed by MAURICE CUTLER MD ([id number]), editor index SHERRY GRAYSON ([id number]) on 512:45:44 PM Referred By: Lyly Teixeira Confirmed By: MAURICE CUTLER MD 11/04/24 1248 Date _ Maurice Cutler MD CC: RAISSA Mendiola; Dr. Deepak Rivers MD ~ Signed [facility] Work Phone: [phone] Absolute lymphocyte countOrd ered By: Lyly Teixeira on 11-03-2024 Lymphocytes Auto (Unsp spec) [#/Vol] 1.75 10*3/uL 0.83-4.51 [facility] Absolute neutrophil countOrd ered By: Lyly Teixeira on 11-03-2024 Neutrophils (Bld) [#/Vol] 9.9 10*3/uL High 2.0-7.7 [facility] Anion gap in Serum or Plasma Ordered By: Lyly Teixeira on 11-03-2024 Anion gap [Moles/Vol] 13 mmol/L 5- [facility] Automated lymphocyte count a s percentage of total leukocytesOrdered By: Lyly Teixeira on 11-03-2024 Lymphocytes/100 WBC Auto (Unsp spec) 13.8 % Low 19-41 [facility] BUN/creatinine ratioOrdered By: Lyly Teixeira on 11-03-2024 Urea nitrogen/Creatinine [Mass ratio] 17.1 mg/mg 06-05 [facility] Basic Metabolic Profile (BMP )on 11-03-2024 BUN/CRE 17.1 RATIO Normal 06-05 [facility] Comment on above: Performed By: #### L 100.0100, L500.2500 #### [facility] Laboratory [address] [place], [address] Calcium [Mass/Vol] 9.4 mg/dL Normal 7.6-11.0 [facility] Comment on above: Performed By: #### L 100.0100, L500.2500 #### [facility] Laboratory [address] [place], [address] Chloride [Moles/Vol] 95 mmol/L Low 98-108 [facility] Comment on above: Performed By: #### L 100.0100, L500.2500 #### [facility] Laboratory [address] [place], [address] CO2 [Moles/Vol] 24.8 mmol/L Normal 21.0-32.0 [facility] Comment on above: Performed By: #### L 100.0100, L500.2500 #### [facility] Laboratory [address] [place], [address] Creatinine [Mass/Vol] 0.84 mg/dL Normal 0.70-1.20 [facility] Comment on above: Performed By: #### L 100.0100, L500.2500 #### [facility] Laboratory [address] [place], [address] GAP 13 Normal 5-15 [facility] Comment on above: Performed By: #### L 100.0100, L500.2500 #### [facility] Laboratory [address] [place], [address] GFR/1.73 sq M.predicted among non-blacks MDRD (S/P/Bld) [Vol rate/Area] 78 mL/min/{1.73_m2} Normal >60 [facility] Comment on above: Result Comment: mL/m in/1.73m2 CKD-EPI Creatinine Equation (2020) Performed By: #### L 100.0100, L500.2500 #### [facility] Laboratory [address] [place], [address] Glucose [Mass/Vol] 112 mg/dL High 70-99 [facility] Comment on above: Performed By: #### L 100.0100, L500.2500 #### [facility] [address] [place], [address] Potassium [Moles/Vol] 3.5 mmol/L Normal 3.3-5.1 [facility] Comment on above: Performed By: #### L 100.0100, L500.2500 #### [facility] Laboratory [address] [place], [address] Sodium [Moles/Vol] 133 mmol/L Normal 133-145 [facility] Comment on above: Performed By: #### L 100.0100, L500.2500 #### [facility] [address] [place], [address] Urea nitrogen [Mass/Vol] 14 mg/dL Normal 4-19 [facility] Comment on above: Performed By: #### L 100.0100, L500.2500 #### [facility] Laboratory [address] [place], [address] Basophil percentageOrdered B y: Lyly Teixeira on 11-03-2024 Basophils/100 WBC (Bld) 0.3 % 0-1 [facility] CBC W/Diff, Automatedon 10-16 Absolute Lymph 1.75 X10 3/uL Normal 0.83-4.51 [facility] Comment on above: Performed By: #### L 100.0100, L500.2500 #### [facility] Laboratory [address] [place], [address] Absolute Neut 9.9 X10 3/uL High 2.0-7.7 [facility] Comment on above: Performed By: #### L 100.0100, L500.2500 #### [facility] Laboratory [address] [place], [address] Basophils/100 WBC (Bld) 0.3 % Normal 0-1 [facility] Comment on above: Performed By: #### L 100.0100, L500.2500 #### [facility] [address] [place], [address] Eosinophils/100 WBC (Bld) 0.3 % Normal 0-5 [facility] Comment on above: Performed By: #### L 100.0100, L500.2500 #### [facility] Laboratory [address] [place], [address] Erythrocyte distribution width (RBC) [Ratio] 14.5 % Normal 11.6-14.6 [facility] Comment on above: Performed By: #### L 100.0100, L500.2500 #### [facility] Laboratory [address] [place], [address] Hematocrit (Bld) [Volume fraction] 42.2 % Normal 37-47 [facility] Comment on above: Performed By: #### L 100.0100, L500.2500 #### [facility] Laboratory [address] [place], [address] Hemoglobin (Bld) [Mass/Vol] 14.2 g/dL Normal 12.0-15.0 [facility] Comment on above: Performed By: #### L 100.0100, L500.2500 #### [facility] Laboratory [address] [place], [address] IG% 0.500 Normal 0.0-0.9 [facility] Comment on above: Result Comment: IG% - Immature Granulocytes (promyelocytes, myelocytes and metamyelocytes) > 1% indicates that a LEFT SHIFT is Present. Performed By: #### L 100.0100, L500.2500 #### [facility] Laboratory [address] [place], [address] Lymphocytes/100 WBC (Bld) 13.8 % Low 19-41 [facility] Comment on above: Performed By: #### L 100.0100, L500.2500 #### [facility] Laboratory [address] [place], [address] MCH (RBC) [Entitic mass] 31.6 pg Normal 27.0-32.0 [facility] Comment on above: Performed By: #### L 100.0100, L500.2500 #### [facility] Laboratory [address] [place], [address] MCHC (RBC) [Mass/Vol] 33.6 g/dL Normal 32-36 [facility] Comment on above: Performed By: #### L 100.0100, L500.2500 #### [facility] [address] [place], [address] MCV (RBC) [Entitic vol] 94.0 fL Normal 81-99 [facility] Comment on above: Performed By: #### L 100.0100, L500.2500 #### [facility] Laboratory [address] [place], [address] Monocytes/100 WBC (Bld) 6.8 % Normal 0-10 [facility] Comment on above: Performed By: #### L 100.0100, L500.2500 #### [facility] Laboratory [address] [place], [address] Neutrophils/100 WBC (Bld) 78.3 % High 47-70 [facility] Comment on above: Performed By: #### L 100.0100, L500.2500 #### [facility] Laboratory [address] [place], [address] Nucleated RBC (Bld) [#/Vol] 0 10*3/uL Normal 0-5 [facility] Comment on above: Performed By: #### L 100.0100, L500.2500 #### [facility] Laboratory [address] [place], [address] Platelet mean volume (Bld) [Entitic vol] 11.9 fL Normal 6.2-12.0 [facility] Comment on above: Performed By: #### L 100.0100, L500.2500 #### [facility] Laboratory [address] [place], [address] Platelets (Bld) [#/Vol] 227 10*3/uL Normal 150-450 [facility] Comment on above: Performed By: #### L 100.0100, L500.2500 #### [facility] Laboratory [address] [place], [address] RBC (Bld) [#/Vol] 4.49 10*6/uL Normal 4.2-5.4 [facility] Comment on above: Performed By: #### L 100.0100, L500.2500 #### [facility] Laboratory [address] [place], [address] RDW SD 49.7 fl High 35.1-43.9 [facility] Comment on above: Performed By: #### L 100.0100, L500.2500 #### [facility] Laboratory [address] [place], [address] WBC (Bld) [#/Vol] 12.7 10*3/uL High 4.4-11.0 [facility] Comment on above: Performed By: #### L 100.0100, L500.2500 #### [facility] Laboratory [address] [place], [address] Carbon dioxide, total [Moles /volume] in Central venous bloodOrdered By: Lyly Teixeira on 11-03-2024 CO2 [Moles/Vol] 24.8 mmol/L 21.0-32.0 [facility] Chloride assayOrdered By: Ashlyn Teixeira on 11-03-2024 Chloride [Moles/Vol] 95 mmol/L Low 98-108 [facility] Emergency Department Summary on 11-03-2024 Emergency Department Summary [facility] Medical Records Department [address] [place] [address] Emergency Department Summary 11/03/24 MR#: [id number] Acct: [id number] Name: ADRIANNA BARNEY Rep #: [id number] : 1960 64 From: Luis Geiger DO [...] concern for fracture she presents for evaluation [facility] Medical History no medical history no [...] orthopedic david (more content not included)... Normal [facility] Eosinophil percentageOrdered By: Lylychance Teixeira on 11-03-2024 Eosinophils/100 WBC (Bld) 0.3 % 0-5 [facility] Erythrocyte distribution wid th ratioOrdered By: Lylymarleny Teixeira on 11-03-2024 Erythrocyte distribution width (RBC) [Ratio] 14.5 % 11.6-14.6 [facility] Erythrocyte distribution wid th standard deviationOrdered By: Lylymarleny Teixeira on 11-03-2024 Erythrocyte distribution width (RBC) [Entitic vol] 49.7 fL High 35.1-43.9 [facility] Erythrocyte distribution width (RBC) [Ratio] 49.7 fl High 35.1-43.9 [facility] Extremity Upper without Cont raon 11-03-2024 Extremity Upper without Contra [facility] Imaging Services [address] [place] [address] [place] [id number] Extremity Upper without Contra MR#: [id number] Acct: [id number] Name: ADRIANNA BARNEY Rep #: [id number] : 1960 F 64 From: Nixon Hernandez i, DO PCP: Dr. Deepak Rivers MD Status: REG CLI Study: Extremity Upper without Contra Date of Exam: 0 11/03/24 Exam# [id number] Ordering Dr: Lyly Teixeira PROCEDURE: Noncontrast CT [...] of the upper right arm. Reading [facility] CC: RAISSA Mendiola; Dr. Deepak Rivers MD Research Microbiologist: Signed Normal [facility] GFR/1.73 sq M.predicted sia g non-blacks MDRD (S/P/Bld) [Vol rate/Area]Ordered By: Lyly Teixeira on 11-03-2024 Estimated GFR (MDRD) Non-Af Amer 78 >60 [facility] Comment on above: mL/min/1.73m2 CKD-EP I Creatinine Equation (2020) Glomerular filtration rate ( GFR) estimation/1.73 sq m using serum, plasma, or whole bOrdered By: Lyly Teixeira on 11-03-2024 GFR/1.73 sq M.predicted among non-blacks MDRD (S/P/Bld) [Vol rate/Area] 78 mL/min/{1.73_m2} >60 [facility] Comment on above: mL/min/1.73m2 CKD-EP I Creatinine Equation (2020) Hematocrit Auto (Bld) [Volum e fraction]Ordered By: Lyly Teixeira on 11-03-2024 Hematocrit (Bld) [Volume fraction] 42.2 % 37-47 [facility] Hemoglobin measurementOrdere d By: Lyly Teixeira on 11-03-2024 Hemoglobin (Bld) [Mass/Vol] 14.2 g/dL 12.0-15.0 [facility] Humerus min 2 Viewson 2024 Humerus min 2 Views [facility] Imaging Services [address] [place] [address] Humerus min 2 Views MR#: [id number] Acct: [id number] Name: ADRIANNA BARNEY Rep #: [id number] : 1960 F 64 From: Nixon Hernandez i, DO PCP: Dr. Deepak Rivers MD Status: REG ER Study: Humerus min 2 Views Date of Exam: 11/03/24 Exam# [id number] Ordering Dr: Luis Geiger DO PROCEDURE: Right [...] the proximal right humerus/humeral head. Reading Location: [facility] CC: Dr. Deepak Rivers MD; Luis Geiger DO Research Microbiologist: Signed Normal [facility] Immature granulocytes/100 WB C Auto (Bld)Ordered By: Lyly Teixeira on 11-03-2024 Immature granulocytes/100 WBC (Bld) 0.500 % 0.0-0.9 [facility] Comment on above: IG% - Immature Granu locytes (promyelocytes, myelocytes and metamyelocytes) > 1% indicates that a LEFT SHIFT is Present. Lymphocytes Auto (Unsp spec) [#/Vol]Ordered By: Lyly Teixeira on 11-03-2024 Lymphocytes (Bld) [#/Vol] 1.75 10*3/uL 0.83-4.51 [facility] Lymphocytes/100 WBC Auto (Un sp spec)Ordered By: Lyly Teixeira on 11-03-2024 Lymphocytes/100 WBC (Bld) 13.8 % Low 19-41 [facility] MCV (mean corpuscular volume ) determinationOrdered By: Lyly Teixeira on 11-03-2024 MCV (RBC) [Entitic vol] 94.0 fL 81-99 [facility] Mean corpuscular hemoglobin (MCH) determinationOrdered By: Lyly Teixeira on 11-03-2024 MCH (RBC) [Entitic mass] 31.6 pg 27.0-32.0 [facility] Mean corpuscular hemoglobin concentration (MCHC) determinationOrdered By: Lyly Teixeira on 11-03-2024 MCHC (RBC) [Mass/Vol] 33.6 g/dL 32-36 [facility] Mean platelet volume determi nationOrdered By: Lyly Teixeira on 11-03-2024 Platelet mean volume (Bld) [Entitic vol] 11.9 fL 6.2-12.0 [facility] Monocyte percentageOrdered B y: Lyly Teixeira on 11-03-2024 Monocytes/100 WBC (Bld) 6.8 % 0-10 [facility] Neutrophil percentageOrdered By: Lyly Teixeira on 11-03-2024 Neutrophils/100 WBC (Bld) 78.3 % High 47-70 [facility] Nucleated red blood cell per centageOrdered By: Lyly Teixeira on 11-03-2024 Nucleated RBC/100 WBC (Bld) [Ratio] 0 % 0-5 [facility] Platelet countOrdered By: Ashlyn Teixeira on 11-03-2024 Platelets (Bld) [#/Vol] 227 10*3/uL 150-450 [facility] Potassium (Unsp spec) [Mass/ Vol]Ordered By: Lyly Teixeira on 11-03-2024 Potassium [Moles/Vol] 3.5 mmol/L 3.3-5.1 [facility] Potassium measurement (mass/ volume)Ordered By: Lyly Teixeira on 11-03-2024 Potassium (Unsp spec) [Mass/Vol] 3.5 mmol/L 3.3-5.1 [facility] RBC Auto (Bld) [#/Vol]Ordere d By: Lyly Teixeira on 11-03-2024 RBC (Bld) [#/Vol] 4.49 10*6/uL 4.2-5.4 [facility] Serum creatinine measurement (mass/volume)Ordered By: Lyly Teixeira on 11-03-2024 Creatinine [Mass/Vol] 0.84 mg/dL 0.70-1.20 [facility] Serum glucose measurement (m ass/volume)Ordered By: Lyly Teixeira on 11-03-2024 Glucose [Mass/Vol] 112 mg/dL High 70-99 [facility] Serum or plasma calcium kenneth urement (mass/volume)Ordered By: Lyly Teixeira on 11-03-2024 Calcium [Mass/Vol] 9.4 mg/dL 7.6-11.0 [facility] Serum or plasma urea nitroge n measurement (mass/volume)Ordered By: Lyly Teixeira on 11-03-2024 Urea nitrogen [Mass/Vol] 14 mg/dL 4-19 [facility] Shoulder min 2 Viewson 11-03 Shoulder min 2 Views [facility] Imaging Services [place], [place] [address] Shoulder min 2 Views MR#: [id number] Acct: [id number] Name: ADRIANNA BARNEY Rep #: [id number] : 1960 F 64 From: Nixon Hernandez i, DO PCP: Dr. Deepak Rivers MD Status: [facility] ER Study: Shoulder min 2 Views Date of Exam: 11/03/24 Exam# [id number] Ordering Dr: Luis Geiger DO PROCEDURE: Right [...] Dr. Deepak Rivers MD; Luis Geiger DO Research Microbiologist: Signed Normal [facility] Sodium levelOrdered By: Susu Teixeira on 11-03-2024 Sodium [Moles/Vol] 133 mmol/L 133-145 [facility] White blood cell (WBC) count Ordered By: Lyly Teixeira on 11-03-2024 WBC (Bld) [#/Vol] 12.7 10*3/uL High 4.4-11.0 [facility] CNOVon 08-15-2024 CNOV Office Visit (FAMPWS ) ADRIANNA BARNEY ([id number]) 1960 F Date Time Provider Department 08/15/24 [...] unspecified emphysema (more content not included)... Normal [facility] 05-05-2024 [facility] BAR[facility] ([id number]) 1960 F Date Time Provider Department 05/05/24 [facility] During your visit today, we recorded the following information about you: Jazmine Gordon, STAR 05/05/2024 2:51 PM Signed Patient reports Dr. Rivers wrote Rx for her Ambien with quantity of 30 with 2 refills. Patient states her insurance will only allow a fill of 15 tablets at a time. States Dr. Rivers has sent a letter in the past to [employer] authorizing 30 tablets to be filled and is asking if PCP office can send a new letter? Please call patient with update. Thank you. Nigel Viveros APRN.[facility] 05/06/2024 12:43 PM Signed Letter written. Can you fax to [employer] and let the patient know? Nigel Viveros APRN.Marleni Yang LPN 05/06/2024 12:49 PM Signed Faxed to [facility], patient notified. Allergies As of Date: [...] Encounter Status:Closed by MARLENI MUNGUIA on 05/06/24 [facility] CNOVon 04-08-2024 CNOV Office Visit (FAMPWS ) ADRIANNA BARNEY ([id number]) 1960 F Date Time Provider Department 04/08/24 11:00 AM NUZHAT ESTRADA During your visit today, we recorded the following information about you: Pulse Respiration Blood pressure Weight 100/minute 16/minute 140/82 102 kg Nuzhat Estrada APRN.[employer]UNGER SHOVEL OPERATOR 04/08/2024 1:06 PM Signed This is a [...] capillary refill. (more content not included)... Normal [facility] CNOVon 02-09-2024 [facility] BAR[facility] ([id number]) 1960 F Date Time Provider Department 02/09/24 11:00 AM [facility] During your visit today, we recorded the [...] BUN 06 (more content not included)... Normal [facility] Comprehensive metabolic 2000 panelon 02-06-2024 Albumin [Mass/Vol] 4.3 g/dL Normal 3.9-4.9 [facility] Comment on above: Order Comment: Speci men Type: BLOOD SPECIMEN Ordering Facility: [facility] Address: [address] [id number] Performed By: #### 2 4331-1, 68538-6 #### [facility] CLIA [id number] [address] [place] [address] [place] ALP [Catalytic activity/Vol] 101 U/L Normal 34-123 [facility] Comment on above: Order Comment: Speci men Type: BLOOD SPECIMEN Ordering Facility: [facility] Address: [address] [place], [place] [address] Performed By: #### 2 4331-1, #### [facility] CLIA [id number] [address] [place] [address] [place] ALT [Catalytic activity/Vol] 16 U/L Normal 7-38 [facility] Comment on above: Order Comment: Speci men Type: BLOOD SPECIMEN Ordering Facility: [facility] Address: [address] [place] [address] Performed By: #### 2 4331-1, 79879-8 #### [facility] CLIA [id number] [address] [place] [address] [place] Anion gap [Moles/Vol] 11 mmol/L Normal 8-15 [facility] Comment on above: Order Comment: Speci men Type: BLOOD SPECIMEN Ordering Facility: [facility] Address: [address] [place], [place] [address] Performed By: #### 2 4331-1, 42903-0 #### [facility] CLIA [id number] [address] [id number] [place] AST [Catalytic activity/Vol] 19 U/L Normal 13-35 [facility] Comment on above: Order Comment: Speci men Type: BLOOD SPECIMEN Ordering Facility: [facility] Address: [address] [id number] Performed By: #### 2 4331-1, 72926-4 #### [facility] CLIA [id number] [address] [place] [address] [place] Bilirubin [Mass/Vol] 0.3 mg/dL Normal 0.2-1.3 [facility] Comment on above: Order Comment: Speci men Type: BLOOD SPECIMEN Ordering Facility: [facility] Address: [address] [place] [address] Performed By: #### 2 4331-1, 57434-3 #### [facility] CLIA [id number] [address] [place] [address] [place] Calcium [Mass/Vol] 9.5 mg/dL Normal 8.5-10.2 [facility] Comment on above: Order Comment: Speci men Type: BLOOD SPECIMEN Ordering Facility: [facility] Address: [address] [place] [address] Performed By: #### 2 4331-1, 31788-7 #### [facility] CLIA [id number] [address] [place] [address] [place] Chloride [Moles/Vol] 104 mmol/L Normal 98-107 [facility] Comment on above: Order Comment: Speci men Type: BLOOD SPECIMEN Ordering Facility: [facility] Address: [address] [place] [address] Performed By: #### 2 4331-1, 13533-3 #### [facility] CLIA [id number] [address] [place] [address] [place] CO2 [Moles/Vol] 27 mmol/L Normal 22-30 [facility] Comment on above: Order Comment: Speci men Type: BLOOD SPECIMEN Ordering Facility: [facility] Address: [address] [place] [address] Performed By: #### 2 4331-1, 68451-0 #### [facility] CLIA [id number] [address] [place], [place] [address] [place] Creatinine [Mass/Vol] 0.71 mg/dL Normal 0.58-0.96 [facility] Comment on above: Order Comment: Ja cardenas Type: BLOOD SPECIMEN Ordering Facility: [facility] Address: [address] [place] [address] Performed By: #### 2 4331-1, 65306-0 #### [facility] CLIA [id number] [address] [place] [address] [place] Creatinine and Glomerular filtration rate.predicted panel (S/P/Bld) 96 mL/min/1.73m??? Normal >=60 [facility] Comment on above: Order Comment: Ja cardenas Type: BLOOD SPECIMEN Ordering Facility: [facility] Address: [address] [place] [address] Result Comment: Noelle mated Glomerular Filtration Rate [...] actual GFR. Performed By: #### 2 4331-1, 76026-1 #### [facility] CLIA [id number] [address] [place] [address] [place] Glucose [Mass/Vol] 84 mg/dL Normal 74-99 [facility] Comment on above: Order Comment: Ja cardenas Type: BLOOD SPECIMEN Ordering Facility: [facility] Address: [address] [place] [address] Result Comment: The [place] Diabetes Association (ADA) provides guidance for cutoff [...] Standards of Medical Care in Diabetes 2016, [place] Diabetes Association. Diabetes Care. 2016.39(Suppl 1). Performed By: #### 2 4331-1, 84375-9 #### [facility] CLIA [id number] [address] [place] [address] [place] Potassium [Moles/Vol] 4.3 mmol/L Normal 3.7-5.1 [facility] Comment on above: Order Comment: Speci men Type: BLOOD SPECIMEN Ordering Facility: [facility] Address: [address] [place] [address] Performed By: #### 2 4331-1, 98963-5 #### [facility] CLIA [id number] [address] [place] [address] [place] Protein [Mass/Vol] 6.8 g/dL Normal 6.3-8.0 [facility] Comment on above: Order Comment: Speci men Type: BLOOD SPECIMEN Ordering Facility: [facility] Address: [address] [place] [address] Performed By: #### 2 4331-1, 01067-3 #### [facility] CLIA [id number] [address] [place] [address] [place] Sodium [Moles/Vol] 142 mmol/L Normal 136-144 [facility] Comment on above: Order Comment: Speci men Type: BLOOD SPECIMEN Ordering Facility: [facility] Address: [address] [place] [address] Performed By: #### 2 4331-1, 11941-9 #### [facility] CLIA [id number] [address] [place] [address] [place] Urea nitrogen [Mass/Vol] 12 mg/dL Normal 7-21 [facility] Comment on above: Order Comment: Speci men Type: BLOOD SPECIMEN Ordering Facility: [facility] Address: [address] [place], [place] [address] Performed By: #### 2 4331-1, 21780-9 #### [facility] CLIA [id number] [address] [place] [address] [place] HbA1c (Bld)on 02-06-2024 Average glucose Estimated from glycated hemoglobin (Bld) [Mass/Vol] 126 mg/dL Normal [facility] Comment on above: Order Comment: Ja cardenas Type: BLOOD SPECIMEN Ordering Facility: [facility] Address: [address] [place] [address] Result Comment: eAG: (Estimated average glucose) is a calculated value from HgbA1c and is warehouse representative of the average blood glucose level in the last 2-3 month period. Performed By: #### 5 5454-3 #### [facility] CLIA [id number] [address] [place] [address] [place] HbA1c (Bld) [Mass fraction] 6.0 % High 4.3-5.6 [facility] Comment on above: Order Comment: Ja cardenas Type: BLOOD SPECIMEN Ordering Facility: [facility] Address: [address] [place] [address] Result Comment: Amer [place] Diabetes Association guidelines indicate that patients with HgbA1c in the range 5.7-6.4% are at increased risk for development of diabetes, and intervention by lifestyle modification may be beneficial. HgbA1c greater or equal to 6.5% is considered diagnostic of diabetes. Performed By: #### 5 5454-3 #### [facility] CLIA [id number] [address] [place] [address] [place] Lipid 1996 panelon 4 Cholesterol [Mass/Vol] 171 mg/dL Normal <200 [facility] Comment on above: Order Comment: Ja cardenas Type: BLOOD SPECIMEN Ordering Facility: [facility] Address: [address] [place] [address] Result Comment: <200 mg/dL, Desirable 200-239 mg/dL, Borderline high >239 mg/dL, High Performed By: #### 2 4331-1, 05668-1 #### [facility] CLIA [id number] [address] [facility] Cholesterol in HDL [Mass/Vol] 50 mg/dL Normal >39 [facility] Comment on above: Order Comment: Ja cardenas Type: BLOOD SPECIMEN Ordering Facility: [facility] Address: [address] [place] [address] Result Comment: 40-5 9 mg/dL, Acceptable >59 mg/dL, High: Negative risk factor for coronary heart disease <40 mg/dL, Low: Positive risk factor for coronary heart disease Performed By: #### 2 4331-1, 65234-3 #### [facility] CLIA [id number] [address] [place] [address] [facility] Cholesterol in LDL [Mass/Vol] 73 mg/dL Normal <100 [facility] Comment on above: Order Comment: Ja cardenas Type: BLOOD SPECIMEN Ordering Facility: [facility] Address: [address] [place] [address] Result Comment: <100 mg/dL, Optimal 100-129 mg/dL, Near optimal/above optimal 130-159 mg/dL, Borderline high 160-189 mg/dL, High >189 mg/dL, Very high Secondary prevention optimal LDL Cholesterol levels are recommended to be < 70 mg/dL Performed By: #### 2 4331-1, 36928-3 #### [facility] CLIA [id number] [address] [place] [address] [facility] Cholesterol in LDL/Cholesterol in HDL [Mass ratio] 1.46 {ratio} Normal <2.54 [facility] Comment on above: Order Comment: Ja cardenas Type: BLOOD SPECIMEN Ordering Facility: [facility] Address: [address] [place] [address] Result Comment: Marybel dill: 1. National Cholesterol Education Program ATP III Guideline At-A-Glance Quick Desk Reference: National Heart, Lung, and Blood [place]. National Institutes of Health. 2001: NIH Publication No. 01-3305. 2. An International Atherosclerosis Society position paper: global recommendations for the management of dyslipidemia: executive summary, Atherosclerosis. 2014: 232(2):410-413. Performed By: #### 2 4331-1, 19830-6 #### [facility] CLIA [id number] [address] [place] [address] [place] Cholesterol in VLDL [Mass/Vol] 48 mg/dL High <30 [facility] Comment on above: Order Comment: Speci men Type: BLOOD SPECIMEN Ordering Facility: [facility] Address: [address] [place] [address] Performed By: #### 2 4331-1, #### [facility] CLIA [id number] [address] [place] [address] [place] Cholesterol non HDL [Mass/Vol] 121 mg/dL Normal <130 [facility] Comment on above: Order Comment: Speci men Type: BLOOD SPECIMEN Ordering Facility: [facility] Address: [address] [place] [address] Result Comment: <130 mg/dL, Optimal 130-159 mg/dL, Near optimal/above optimal 160-189 mg/dL, Borderline high 190-219 mg/dL, High >219 mg/dL, Very high Secondary prevention optimal non HDL Cholesterol levels are recommended to be <100 mg/dL Performed By: #### 2 4331-1, #### [facility] CLIA [id number] [address] [place] [address] [place] Cholesterol.total/Felicity sterol in HDL [Mass ratio] 3.42 {ratio} Normal <5.10 [facility] Comment on above: Order Comment: Speci men Type: BLOOD SPECIMEN Ordering Facility: [facility] Address: [address] [place], [place] [address] Performed By: #### 2 4331-1, 35409-4 #### [facility] CLIA [id number] [address] [place], [place] [address] [place] FASTING TIME 12 hrs Normal [facility] Comment on above: Order Comment: Speci men Type: BLOOD SPECIMEN Ordering Facility: [facility] Address: [address] [place] [address] Performed By: #### 2 4331-1, 90585-7 #### [facility] CLIA [id number] [address] [place] [address] [place] Triglyceride [Mass/Vol] 242 mg/dL High <150 [facility] Comment on above: Order Comment: Speci men Type: BLOOD SPECIMEN Ordering Facility: [facility] Address: [address] [place] [address] Result Comment: <150 mg/dL, Normal 150-199 mg/dL, Borderline high 200-499 mg/dL, High >499 mg/dL, Very high Performed By: #### 2 4331-1, 59432-7 #### [facility] CLIA [id number] [address] [place] [address] [place] OBSOLETEon 05-11-2020 OBSOLETE Refill ([facility]) ADRIANNA BARNEY ([id number]) 1960 F Date Time Provider Department 05/11/20 FRANSISCO YOUNG [facility] During your visit today, we recorded the [...] Patient next appointment: 05/21/2020 Patient Phone numbers: [phone] (home) Request is for script(s) to be [...] by FRANSISCO YOUNG DO on 05/11/20 Normal [facility] CNOVon 04-27-2020 CN Office Visit ([facility]) ADRIANNA BARNEY ([id number]) 1960 F Date Time Provider Department 04/27/20 9:00 AM FRANSISCO YOUNG [facility] During your visit today, we recorded the following information about you: Temperature Pulse Respiration Blood pressure 96.2 degrees 89/minute 16/minute 166/92 Weight Height 97 kg 1.702 m Fransisco Young DO 04/27/2020 1:14 PM Signed Fransisco Young DO [address] [place] [address] SUBJECTIVE Adrianna Barney is a 60 year [...] Na in diet She will f/u with INTERMEDIATE DESIGNER for female care DR.Lynne Harrison she will [...] 0 CBC + DIFF [SQCBCDIF] Order #: [id number] FUTURE COMP METABOLIC PANEL [SQCMP] Order #: [id number] FUTURE HGB A1C [GCGKI8F] Order #: [id number] FUTURE LIPID PANEL BASIC [SQLIPB] Order #: [id number] FUTURE TSH BLD [SQTSH] Order #: [id number] FUTURE URINALYSIS, WITH MICROSCOPIC [SQUAWMIC] Order #: [id number] FUTURE VITAMIN D 25 HYDROXY [SQVITD] Order #: [id number] FUTURE ECG B/O W INTERP (MED OFFICE) [ECG06] Order #: [id number] nicotine (NICODERM) 21 mg/24 hrApply 1 Patch as directed every 24 hours.Disp: 45 PatchRfl: 0 nicotine (NICODERM) 14 mg/24 hrApply 1 Patch as directed every 24 hours.Disp: 14 PatchRfl: 0 nicotine (NICODERM) 7 mg/24 hrApply 1 Patch as directed every 24 hours.Disp: 14 PatchRfl: 0 COLOGUARD KIT [3016825] Order #: [id number] Prescriptions as of 04/27/2020 Sig: ZOLPIDEM ER [...] Status:Closed by FRANSISCO YOUNG DO on 04/27/20 [facility] PROGRESSon 04-27-2020 PROGRESS HNO ID: [id number] Author: Fransisco Young Service: ? Author Type: Physician Type: Progress Notes Filed: 04/27/2020 1:14 PM Note Text: Fransisco Young DO [address] [place] [address] SUBJECTIVE Adrianna Barney is a 60 year [...] Na in diet She will f/u with INTERMEDIATE DESIGNER for female care DR.Lynne Harrison she will call for appt Refuses colonoscopy will do cologuard Follow up: No follow-ups on file. Fransisco Young DO Normal [facility] OBSOLETEon 04-20-2020 OBSOLETE Refill [facility] ADRIANNA BARNEY ([id number]) 1960 F Date Time Provider Department 04/20/20 [facility] your visit today, we recorded the [...] Class: C-IV EDMUND: No Patient Phone numbers: [phone] (home) Request is for script(s) to be [...] Visit date not found Patient Phone numbers: [phone] (home) Request is for script(s) to be [...] appt today with a provider in the [place] [address] office. Patient stated she will wait until Thursday, and disconnected call. Kandy Schafer 04/25/2020 08:39:33 Allergies As of Date: 04/20/2020 (No Known Allergies) Date Reviewed: 08/30/2019 Reviewed by: Jenniffer Bailey) Buitrago, CLOTH FRAMER - Fully Assessed Reason for Visit: Refill [...] Status:Closed by MAURA SOTOMAYOR DO on 04/20/20 [facility] OBSOLETEon 01-30-2020 OBSOLETE Refill ([facility]) ADRIANNA BARNEY ([id number]) 1960 F Date Time Provider Department 01/30/20 [...] Patient next appointment: 02/29/2020 Patient Phone numbers: [phone] (home) Request is for script(s) to be [...] Encounter Status:Closed by DAWNA PARRISH on 01/30/20 [facility] Jevon 01-13-2020 [facility] Telephone ([facility]) ADRIANNA BARNEY ([id number]) 1960 F Date Time Provider Department 01/13/20 DAWNA PARRISH [facility] During your visit today, we recorded the [...] Status:Closed by NANCY BRAXTON LPN on 01/13/20 [facility] OBSOLETEon 11-10-2019 OBSOLETE Refill ([facility]) ADRIANNA BARNEY ([id number]) 1960 F Date Time Provider Department 11/10/19 DAWNA PARRISH [facility] During your visit today, we recorded the following information about you: Jacklyn Us 11/10/2019 9:54 AM Signed Pharmacy faxed requesting the following refill. Pending Prescriptions Disp Refills ZOLPIDEM ER 6.25 MG TABLET,EXTENDED RELEASE,MULTIPHASE 30 tablet 5 TRENT Class: C-IV EDMUND: No Last refill: 07/25/2019 Patient last appointment: 08/30/2019 Patient next appointment: 02/29/2020 Patient Phone numbers: [phone] (home) Request is for script(s) to be [...] Encounter Status:Closed by DAWNA PARRISH on 11/10/19 [facility] OBSOLETE Refill ([facility]) ADRIANNA BARNEY ([id number]) 1960 F Date Time Provider Department 11/10/19 DAWNA PARRISH [facility] During your visit today, we recorded the [...] Patient next appointment: 02/29/2020 Patient Phone numbers: [phone] (home) Request is for script(s) to be [...] Encounter Status:Closed by DAWNA PARRISH on [facility]/10/19 [facility] AD[facility] BAR[facility] ([id number]) 1960 F Date Time Provider Department 08/30/19 3:20 PM DAWNA PARRISH [facility] During your visit today, we recorded the [...] developed and its performance characteristics determined by [facility]'s Jaime Decker [facility] Pathology and Laboratory Medicine [place] ([facility]). It has not been cleared or approved by the FDA. [facility] is regulated under CLIA as qualified to [...] Dawna Parrish MD Referring Provider: DAWNA PARRISH [[id number]] Allergies As of Date: 08/30/2019 (No Known Allergies) Date Reviewed: 08/30/2019 Reviewed by: Jenniffer Bailey) SEGUNDO Buitrago - Fully Assessed Reason for Visit: Sleep Problem [100] Primary Visit Diagnosis:Primary insomnia [F51.01] Other Visit Diagnoses:Need for vaccination [Z23] Tobacco abuse disorder [Z72.0] Mixed hyperlipidemia [E78.2] Pulmonary emphysema, unspecified emphysema type (HCC) [J43.9] Order(s):ZOSTER VACC RECOMBINANT,IM [59418MNM] Order #: [id number] ADMIN OF INFLUENZA VACCINE [[id number]] Order #: [id number]: 1 INFLUENZA VACCINE QUADRIVALENT AGE 3 YRS PLUS + IM [[id number]] Order #: [id number] Prescriptions as of 08/30/2019 Sig: ZOLPIDEM ER [...] Encounter Status:Closed by DAWNA PARRISH on 08/31/19 [facility] PROGRESSon 08-30-2019 PROGRESS HNO ID: [id number] Author: Dawna Parrish Service: ? Author Type: [...] developed and its performance characteristics determined by [facility]cker [facility] [place] ([facility]). It has not been cleared or approved by the FDA. [facility] is regulated under CLIA as qualified to [...] PFTs in the future. Dawna Parrish MD [facility] OBSOLETEon 07-25-2019 OBSOLETE Refill ([facility]) ADRIANNA BARNEY ([id number]) 1960 F Date Time Provider Department 07/25/19 DAWNA PARRISH [facility] During your visit today, we recorded the [...] Patient next appointment: 08/30/2019 Patient Phone numbers: [phone] (home) Request is for script(s) to be [...] Status:Closed by DAWNA PARRISH on 07/25/19 Normal [facility] CT LUNG SCREENING WO IVCONon 05-06-2019 CT LUNG SCREENING WO IVCON * * *Final Report* * * DATE OF EXAM: May 06 2019 3:14PM [facility] 0562 - CT LUNG SCREENING WO IVCON [...] without contrast. MQ: CTLCS_6 Patient characteristics: * Wstp-el-Akzrh: 1960; Age at exam: 59 years * Gender: Female * Lung Disease: Asymptomatic (no signs or symptoms of lung disease) * Number of Pack Years: 30 * Current smoker (=0) or Number of Years since Quit: 0 * Ordering provider and NPI: DIOGENES CHAIDEZ [id number] * Interpreting radiologist and NPI: Eloisa [id number] Exam acquisition parameters: * Exam Date: 05/06/2019 3:14 PM * Site: [facility] * * CT System Ceramic Artist: [employer] * CT System Model: Dual Source * [...] actionable findings: Small hiatal hernia. ====== Reference: [employer]. Lung CT Screening Reporting and Data System (Lung-RADS). Available at: http://www.acr.org/Qual ity-Safety/Resources/Ninfa ngRADS Research Microbiologist: RAVI Transcribe Date/Time: May 09 2019 12:43P Dictated by : LEILANI NAZARIO MD This examination was interpreted and the report reviewed and electronically signed by: LEILANI NAZARIO MD on May 09 2019 12:54PM EST Normal [facility] Vital Signs Date Time Vital Sign Value Performing Clinician Facility 02-06-2025 22:00-0400 Diastolic blood pressure 64 mm[Hg] Dr. Deepak Rivers MD Work Phone: [phone] [place] [address] 02-06-2025 22:00-0400 Heart rate 117 /min Dr. Deepak Rivers MD Work Phone: [phone] [place] [address] 02-06-2025 22:00-0400 Respiratory rate 22 /min Dr. Deepak Rivers MD Work Phone: [phone] [place] [address] 02-06-2025 22:00-0400 SaO2% (BldA) [Mass fraction] 94 % Dr. Deepak Rivers MD Work Phone: 8(291)723-453622 [place] [address] 02-06-2025 22:00-0400 Systolic blood pressure 108 mm[Hg] Dr. Deepak Rivers MD Work Phone: 6(384)022-290522 [place] [address] 02-06-2025 21:50-0400 Body temperature 101.2 [degF] Dr. Deepak Rivers MD Work Phone: 6(825)182-603922 [place] [address] 02-06-2025 19:12-0400 Body height 170.[address] Deepak Rivers MD Work Phone: 1(889)377-337222 [place] [address] 02-06-2025 19:12-0400 Body mass index (BMI) [Ratio] 32.8 kg/m2 Dr. Deepak Rivers MD Work Phone: 5(517)075-502922 [place] [address] 02-06-2025 19:12-0400 Body weight 94.[address] Deepak Rivers MD Work Phone: 2(458)442-848322 [place] [address] 11-22-2024 11:15-0400 SaO2% (BldA) [Mass fraction] 96 % Dr. Deepak Rivers MD Work Phone: 8(967)753-802222 [place] [address] 11-22-2024 09:12-0400 Body temperature 97.7 [degF] Dr. Deepak Rievrs MD Work Phone: 7(978)218-427222 [place] [address] 11-22-2024 09:12-0400 Diastolic blood pressure 74 mm[Hg] Dr. Deepak Rivers MD Work Phone: 3(131)792-828422 [place] [address] 11-22-2024 09:12-0400 Heart rate 84 /min Dr. Deepak Rivers MD Work Phone: 1(400)290-974022 [place] [address] 11-22-2024 09:12-0400 Respiratory rate 18 /min Dr. Deepak Rivers MD Work Phone: 8(533)622-493922 [place] [address] 11-22-2024 09:12-0400 Systolic blood pressure 148 mm[Hg] Dr. Deepak Rivers MD Work Phone: 6(719)452-666622 [place] [address] 11-21-2024 18:16-0400 Inhaled oxygen flow rate 2 L/min Dr. Deepak Rivers MD Work Phone: 3(765)940-395422 [place] [address] 11-21-2024 16:16-0400 Body height 170.[address] Deepak Rivers MD Work Phone: 5(593)325-685522 [place] [address] 11-21-2024 16:16-0400 Body mass index (BMI) [Ratio] 35.2 kg/m2 Dr. Deepak Rivers MD Work Phone: 6(030)905-353522 [place] [address] 11-21-2024 16:16-0400 Body weight 102.[address] Deepak Rivers MD Work Phone: 7(118)860-332622 [place] [address] 11-03-2024 08:06-0400 Body temperature 98 [degF] Dr. Deepak Rivers MD Work Phone: 5(360)635-064722 [place] [address] 11-03-2024 08:06-0400 Diastolic blood pressure 66 mm[Hg] Dr. Deepak Rivers MD Work Phone: 6(750)605-373922 [place] [address] 11-03-2024 08:06-0400 Heart rate 78 /min Dr. Deepak Rivers MD Work Phone: [facility] 11-03-2024 08:06-0400 Respiratory rate 14 /min Dr. Deepak Rivers MD Work Phone: [facility] 11-03-2024 08:06-0400 SaO2% (BldA) [Mass fraction] 97 % Dr. Deepak Rivers MD Work Phone: 2(913)783-133453 [place] [address] 11-03-2024 08:06-0400 Systolic blood pressure 119 mm[Hg] Dr. Deepak Rivers MD Work Phone: 6(303)509-941253 [place] [address] 11-03-2024 06:00-0400 Body height 170.[address] Deepak Rivers MD Work Phone: 3(331)909-423653 [place] [address] 11-03-2024 06:00-0400 Body mass index (BMI) [Ratio] 35.1 kg/m2 Dr. Deepak Rivers MD Work Phone: 0(001)514-976053 [place] [address] 11-03-2024 06:00-0400 Body weight 101.[address] Deepak Rivers MD Work Phone: [facility] 08-15-2024 12:11-0500 Body mass index (BMI) [Ratio] 35.21 kg/m2 Deepak Rivers MD Work Phone: [facility] 08-15-2024 12:11-0500 Body weight 98.8 kg Deepak Rivers MD Work Phone: [facility] 08-15-2024 12:11-0500 Diastolic blood pressure 88 mm[Hg] Deepak Rivers MD Work Phone: [facility] 08-15-2024 12:11-0500 Heart rate 78 /min Deepak Rivers MD Work Phone: [facility] 08-15-2024 12:11-0500 Respiratory rate 16 /min Deepak Rivers MD Work Phone: [facility] 08-15-2024 12:11-0500 Systolic blood pressure 138 mm[Hg] Deepak Rivers MD Work Phone: [facility] 04-08-2024 11:46-0400 Body mass index (BMI) [Ratio] 36.36 kg/m2 Nuzhat Pratherhof FUEL CELL BINDER.PLUNGER SHOVEL OPERATOR Work Phone: [facility] 04-08-2024 11:46-0400 Body weight 102 kg Nuzhat Pratherhof FUEL CELL BINDER.PLUNGER SHOVEL OPERATOR Work Phone: [facility] 04-08-2024 11:46-0400 Diastolic blood pressure 82 mm[Hg] Nuzhat Pratherhof FUEL CELL BINDER.PLUNGER SHOVEL OPERATOR Work Phone: [facility] 04-08-2024 11:46-0400 Heart rate 100 /min Nuzhat Pratherhof FUEL CELL BINDER.PLUNGER SHOVEL OPERATOR Work Phone: [facility] 04-08-2024 11:46-0400 Respiratory rate 16 /min Nuzhat Pratherhof FUEL CELL BINDER.PLUNGER SHOVEL OPERATOR Work Phone: [facility] 04-08-2024 11:46-0400 SaO2% (BldA) [Mass fraction] 96 % Nuzhat Pratherhof FUEL CELL BINDER.PLUNGER SHOVEL OPERATOR Work Phone: [facility] 04-08-2024 11:46-0400 Systolic blood pressure 140 mm[Hg] Nuzhat Pratherhof FUEL CELL BINDER.PLUNGER SHOVEL OPERATOR Work Phone: [facility] 02-09-2024 11:04-0400 Diastolic blood pressure 110 mm[Hg] Deepak Rivers MD Work Phone: [facility] 02-09-2024 11:04-0400 Systolic blood pressure 168 mm[Hg] Deepak Rivers MD Work Phone: [facility] 02-09-2024 11:03-0400 Body mass index (BMI) [Ratio] 36.05 kg/m2 Deepak Rivers MD Work Phone: [facility] 02-09-2024 11:03-0400 Body weight 101.15 kg Deepak Rivers MD Work Phone: [facility] 02-09-2024 11:03-0400 Heart rate 88 /min Deepak Rivers MD Work Phone: [facility] 02-09-2024 11:03-0400 Respiratory rate 18 /min Deepak Rivers MD Work Phone: [facility] 06-17-2023 15:12-0400 Body temperature 97.59 [degF] [facility] FUEL CELL BINDER.PLUNGER SHOVEL OPERATOR Work Phone: [facility] 06-17-2023 15:12-0400 Body weight 99.79 kg [facility] FUEL CELL BINDER.PLUNGER SHOVEL OPERATOR Work Phone: [facility] 06-17-2023 15:12-0400 Diastolic blood pressure 88 mm[Hg] [facility] FUEL CELL BINDER.PLUNGER SHOVEL OPERATOR Work Phone: [facility] 06-17-2023 15:12-0400 Heart rate 88 /min [facility] FUEL CELL BINDER.PLUNGER SHOVEL OPERATOR Work Phone: [facility] 06-17-2023 15:12-0400 Respiratory rate 16 /min [facility] FUEL CELL BINDER.PLUNGER SHOVEL OPERATOR Work Phone: [facility] 06-17-2023 15:12-0400 SaO2% (BldA) [Mass fraction] 97 % [facility] FUEL CELL BINDER.PLUNGER SHOVEL OPERATOR Work Phone: [facility] 06-17-2023 15:12-0400 Systolic blood pressure 152 mm[Hg] [facility] FUEL CELL BINDER.PLUNGER SHOVEL OPERATOR Work Phone: [facility] 04-24-2023 09:45-0400 Body height 167.5 cm Nuzhat Máruqezf FUEL CELL BINDER.PLUNGER SHOVEL OPERATOR Work Phone: [facility] 04-24-2023 09:45-0400 Body weight 100.7 kg Nuzhat Márquezf FUEL CELL BINDER.PLUNGER SHOVEL OPERATOR Work Phone: [facility] 04-24-2023 09:45-0400 Diastolic blood pressure 90 mm[Hg] Nuzhat Pratherhof FUEL CELL BINDER.PLUNGER SHOVEL OPERATOR Work Phone: [facility] 04-24-2023 09:45-0400 Heart rate 84 /min Nuzhat Pratherhof FUEL CELL BINDER.PLUNGER SHOVEL OPERATOR Work Phone: [facility] 04-24-2023 09:45-0400 Respiratory rate 16 /min Nuzhat Tannhof FUEL CELL BINDER.PLUNGER SHOVEL OPERATOR Work Phone: [facility] 04-24-2023 09:45-0400 SaO2% (BldA) [Mass fraction] 97 % Nuzhat Tannhof FUEL CELL BINDER.PLUNGER SHOVEL OPERATOR Work Phone: [facility] 04-24-2023 09:45-0400 Systolic blood pressure 160 mm[Hg] Nuzhat Tannhof FUEL CELL BINDER.PLUNGER SHOVEL OPERATOR Work Phone: [facility] 03-13-2023 10:05-0400 Diastolic blood pressure 80 mm[Hg] Nigel Arsen FUEL CELL BINDER.PLUNGER SHOVEL OPERATOR Work Phone: [facility] 03-13-2023 10:05-0400 Heart rate 85 /min Nigel Arsen FUEL CELL BINDER.PLUNGER SHOVEL OPERATOR Work Phone: [facility] 03-13-2023 10:05-0400 Systolic blood pressure 141 mm[Hg] Nigel Arsen FUEL CELL BINDER.PLUNGER SHOVEL OPERATOR Work Phone: [facility] 03-13-2023 09:54-0400 Body weight 100.52 kg Nigel Arsen FUEL CELL BINDER.PLUNGER SHOVEL OPERATOR Work Phone: [facility] 03-13-2023 09:54-0400 Respiratory rate 16 /min Nigel Arsen FUEL CELL BINDER.PLUNGER SHOVEL OPERATOR Work Phone: [facility] 03-13-2023 09:54-0400 SaO2% (BldA) [Mass fraction] 97 % Nigel Arsen FUEL CELL BINDER.PLUNGER SHOVEL OPERATOR Work Phone: [facility] 08-15-2022 09:20-0500 Body weight 97.98 kg Deepak Rivers MD Work Phone: [facility] 08-15-2022 09:20-0500 Diastolic blood pressure 88 mm[Hg] Deepak Rivers MD Work Phone: [facility] 08-15-2022 09:20-0500 Heart rate 82 /min Deepak Rivers MD Work Phone: [facility] 08-15-2022 09:20-0500 Respiratory rate 16 /min Deepak Rivers MD Work Phone: [facility] 08-15-2022 09:20-0500 SaO2% (BldA) [Mass fraction] 96 % Deepak Rivers MD Work Phone: [facility] 08-15-2022 09:20-0500 Systolic blood pressure 138 mm[Hg] Deepak Rivers MD Work Phone: [facility] 04-28-2022 13:35-0400 Body weight 98.88 kg Nuzhat Tannhof FUEL CELL BINDER.PLUNGER SHOVEL OPERATOR Work Phone: [facility] 04-28-2022 13:35-0400 Diastolic blood pressure 84 mm[Hg] Nuzhat Tannhof FUEL CELL BINDER.PLUNGER SHOVEL OPERATOR Work Phone: [facility] 04-28-2022 13:35-0400 Heart rate 85 /min Nuzhat Tannhof FUEL CELL BINDER.PLUNGER SHOVEL OPERATOR Work Phone: [facility] 04-28-2022 13:35-0400 Respiratory rate 16 /min Nuzhat Tannhof FUEL CELL BINDER.PLUNGER SHOVEL OPERATOR Work Phone: [facility] 04-28-2022 13:35-0400 SaO2% (BldA) [Mass fraction] 97 % Nuzhat Tannhof FUEL CELL BINDER.PLUNGER SHOVEL OPERATOR Work Phone: [facility] 04-28-2022 13:35-0400 Systolic blood pressure 138 mm[Hg] Nuzhat Tannhof FUEL CELL BINDER.PLUNGER SHOVEL OPERATOR Work Phone: [facility] 02-13-2022 09:24-0400 Body weight 100.7 kg Deepak Rivers MD Work Phone: [facility] 02-13-2022 09:24-0400 Diastolic blood pressure 78 mm[Hg] Deepak Rivers MD Work Phone: [facility] 02-13-2022 09:24-0400 Heart rate 72 /min Deepak Rivers MD Work Phone: [facility] 02-13-2022 09:24-0400 Respiratory rate 16 /min Deepak Rivers MD Work Phone: [facility] 02-13-2022 09:24-0400 Systolic blood pressure 128 mm[Hg] Deepak Rivers MD Work Phone: [facility] 11-12-2021 09:19-0400 Body weight 101.83 kg Deepak Rivers MD Work Phone: [facility] 11-12-2021 09:19-0400 Diastolic blood pressure 80 mm[Hg] Deepak Rivers MD Work Phone: [facility] 11-12-2021 09:19-0400 Heart rate 60 /min Deepak Rivers MD Work Phone: [facility] 11-12-2021 09:19-0400 Respiratory rate 16 /min Deepak Rivers MD Work Phone: [facility] 11-12-2021 09:19-0400 Systolic blood pressure 125 mm[Hg] Deepak Rivers MD Work Phone: [facility] Encounters Encounter Date Encounter Type Care Provider Facility Start: 02-06-2025 Evaluation and manag ement of inpatient Dr. Aakash Rincon DO -Intensive Care Unit Work Phone: Start: 01-02-2025 End: 01-02-2025 Refill Nigel Viveros APRN.CNP Work Phone: [facility] Comment on above: Refill Request Start: 12-05-2024 End: 12-06-2024 Telephone encounter Deepak Rivers MD Work Phone: [facility] Comment on above: Patient Update Start: 11-24-2024 Encounter for preprocedural cardiovascular examination Lyly Puneet [facility] Start: 11-21-2024 End: 11-22-2024 ambulatory Deepak Rivers Facility:[facility] Start: 11-21-2024 End: 11-22-2024 Evaluation and management of inpatient Dr. Man Flores DO -Medical Surgical 3 Work Phone: Start: 11-21-2024 End: 11-22-[address] Deepak Rivers MD Work Phone: [facility] Work Phone: Start: 11-11-2024 End: 11-11-2024 Refill Nigel Viveros APRN.PLUNGER SHOVEL OPERATOR Work Phone: [facility] Comment on above: Refill Request Start: 11-10-2024 Encounter for preprocedural laboratory examination Lyly Teixeira [facility] Start: 11-04-2024 End: 11-04-2024 Non-patient / Non-visit Dr. Maurice Cutler MD -[facility] Work Phone: Start: 11-04-2024 End: 11-04-[address] Deepak Rivers MD Work Phone: [facility] Work Phone: Start: 11-04-2024 End: 11-04-2024 Patient encounter procedure Lyly Teixeira PA -Pulmonary Services/Neurology Work Phone: Start: 11-03-2024 End: 11-04-[address] Deepak Rivers MD Work Phone: [facility] Work Phone: Start: 11-03-2024 End: 11-03-2024 Patient encounter procedure Lyly Teixeira PA -Cat Scan, [facility] Work Phone: Start: 11-03-2024 End: 11-03-2024 Emergency department patient visit Dr. Deepak Rivers MD Work Phone: -Emergency Department Work Phone: Start: 11-03-2024 End: 11-03-2024 ambulatory Lyly Teixeira Facility:[facility] Start: 10-08-2024 End: 10-10-2024 Refill Nuzhat Estrada APRN.PLUNGER SHOVEL OPERATOR Work Phone: [facility] Comment on above: Refill Request Start: 09-06-2024 End: 10-07-2024 ambulatory Deepak Rivers MD Work Phone: [facility] Start: 08-15-2024 End: 08-15-2024 [facility] Start: 08-15-2024 End: 08-15-2024 Patient encounter procedure Deepak Rivers MD Work Phone: [facility] Comment on above: Hypertension, unspec ified type (Primary Dx); Primary insomnia; Tobacco abuse disorder; Mixed hyperlipidemia; Pulmonary emphysema, unspecified emphysema type (HCC); Need for influenza vaccination; Elevated glucose Start: 07-18-2024 End: 07-18-2024 Refill Deepak Rivers MD Work Phone: [facility] Comment on above: Refill Request Start: 05-05-2024 End: 05-06-2024 Telephone encounter Deepak Rivers MD Work Phone: [facility] Comment on above: Letter Request Start: 04-15-2024 End: 04-15-2024 Refill Deepak Rivers MD Work Phone: [facility] Comment on above: Refill Request Start: 04-08-2024 End: 04-08-2024 ambulatory NUZHAT ESTRADA Facility:[facility] Start: 04-08-2024 Encounter for genera l adult medical examination without abnormal findings NUZHAT ESTRADA [facility] Start: 04-08-2024 End: 04-08-2024 Patient encounter procedure Nuzhat Estrada APRN.PLUNGER SHOVEL OPERATOR Work Phone: [facility] Comment on above: Wellness examination (Primary Dx); Hypertension, unspecified type; Mixed hyperlipidemia; Primary insomnia; Elevated glucose; Tobacco abuse disorder; Screening for colon cancer Start: 04-08-2024 End: 04-08-2024 Patient encounter status Nuzhat Estrada APRN.PLUNGER SHOVEL OPERATOR Work Phone: [facility] Work Phone: Start: 02-09-2024 End: 02-09-2024 ambulatory DEEPAK RIVERS Facility:[facility] Start: 02-09-2024 End: 02-09-2024 Patient encounter procedure Deepak Rivers MD Work Phone: [facility] [place] Comment on above: Hypertension, unspec ified type (Primary Dx); Primary insomnia; Mixed hyperlipidemia; Elevated glucose; Tobacco abuse disorder Start: 02-08-2024 Refill Deepak jennings MD Work Phone: [facility] Comment on above: Refill Request Start: 02-06-2024 End: 02-06-2024 ambulatory DEEPAK Yousif [facility] Facility:[facility] Start: 11-28-2023 Refill Nigel BOOTH RN.PLUNGER SHOVEL OPERATOR Work Phone: [facility] Comment on above: Refill Request Start: 11-17-2023 Refill Nigel BOOTH RN.PLUNGER SHOVEL OPERATOR Work Phone: [facility] Comment on above: Refill Request Start: 11-09-2023 Refill Nigel BOOTH RN.PLUNGER SHOVEL OPERATOR Work Phone: [facility] Comment on above: Refill Request Start: 10-07-2023 ambulatory Deepak jennings MD Work Phone: [facility] [place] Start: 06-17-2023 End: 06-17-2023 Patient encounter procedure Price Rahman APRN.PLUNGER SHOVEL OPERATOR [facility] Comment on above: Eustachian tube dysf unction, bilateral (Primary Dx) Start: 06-03-2023 Refill Nigel BOOTH RN.PLUNGER SHOVEL OPERATOR Work Phone: [facility] Comment on above: Refill Request Start: 04-24-2023 End: 04-24-2023 Patient encounter procedure Nuzhat Etsrada APRN.PLUNGER SHOVEL OPERATOR Work Phone: [facility] Comment on above: Wellness examination (Primary Dx); Hypertension, unspecified type; Mixed hyperlipidemia; Primary insomnia; Tobacco abuse disorder; Women's annual routine gynecological examination; Screening for colon cancer Start: 04-24-2023 End: 04-24-2023 Patient encounter status Nuzhat Estrada APRN.PLUNGER SHOVEL OPERATOR Work Phone: [facility] Work Phone: Start: 03-13-2023 End: 03-13-2023 Office outpatient visit 15 minutes Nigel Viveros APRN.PLUNGER SHOVEL OPERATOR Work Phone: [facility] [place] Comment on above: Hypertension, unspec ified type (Primary Dx) Start: 02-07-2023 Telephone encounter Shalonda [address] Comment on above: Orders Start: 12-22-2022 Refill Nuzhat Estrada APRN.PLUNGER SHOVEL OPERATOR Work Phone: [facility] [place] Comment on above: Refill Request Start: 12-21-2022 Refill Nuzhat Estrada APRN.PLUNGER SHOVEL OPERATOR Work Phone: [facility] [place] Comment on above: Refill Request Start: 10-28-2022 Refill Nigel BOOTH RN.PLUNGER SHOVEL OPERATOR Work Phone: [facility] [place] Comment on above: Refill Request Start: 10-22-2022 ambulatory Deepak jennings MD Work Phone: Internal Medicine [facility] Start: 08-15-2022 End: 08-15-2022 Patient encounter procedure Deepak Rivers MD Work Phone: [facility] Comment on above: Hypertension, unspec ified type (Primary Dx); Screening for colon cancer; Primary insomnia; Mixed hyperlipidemia; Tobacco abuse disorder Start: 07-07-2022 Refill Deepak jennings MD Work Phone: [facility] Comment on above: Refill Request Start: 04-28-2022 End: 04-28-2022 Patient encounter procedure Nuzhat Estrada APRN.PLUNGER SHOVEL OPERATOR Work Phone: [facility] [place] Comment on above: Wellness examination (Primary Dx); Pulmonary emphysema, unspecified emphysema type (HCC); Hypertension, unspecified type; Mixed hyperlipidemia; Primary insomnia; Screening for colon cancer; Encounter for immunization Start: 04-28-2022 End: 04-28-2022 Patient encounter status Nuzhat Estrada APRN.PLUNGER SHOVEL OPERATOR Work Phone: [facility] [place] Start: 04-03-2022 Refill Deepak jennings MD Work Phone: [facility] [place] Comment on above: Refill Request Start: 02-13-2022 End: 02-13-2022 Patient encounter procedure Deepak Rivers MD Work Phone: [facility] Comment on above: Hypertension, unspec ified type (Primary Dx); Primary insomnia; Elevated glucose; Mixed hyperlipidemia; Tobacco abuse disorder Start: 01-28-2022 Refill Deepak jennings MD Work Phone: [facility] Comment on above: Refill Request Start: 11-12-2021 End: 11-12-2021 Patient encounter procedure Deepak Rivers MD Work Phone: [facility] [place] Comment on above: Hypertension, unspec ified type [...] Adult depression scr eening assessment Nuzhat Estrada FUEL CELL BINDER.PLUNGER SHOVEL OPERATOR Work Phone: Start: 02-06-2024 Lipid 1996 panel - S micah or Plasma Deepak Rivers MD Work Phone: Start: 08-07-2023 Lipid 1996 panel - S micah or Plasma Deepak Rivers MD Work Phone: Start: 02-12-2023 Lipid 1996 panel - S micah or Plasma Nigel Viveros FUEL CELL BINDER.PLUNGER SHOVEL OPERATOR Work Phone: Start: 04-28-2022 INFLUENZA VACCINE QUADRIVALENT 6 MO - 64 YRS IM Nuzhat Estrada FUEL CELL BINDER.PLUNGER SHOVEL OPERATOR Work Phone: Start: 05-14-2021 Adult depression scr eening assessment Deepak Rivers MD Work Phone: Start: 05-25-2015 Mammography Deepak brown MD Work Phone: Plan of Treatment Date Care Activity Detail Author Start: 02-05-2029 Lipid panel Lipid Screening [facility] Start: 08-07-2028 Lipid panel Lipid Screening [facility] Start: 02-13-2028 Lipid 1996 panel - S micah or Plasma Lipid Screening [facility] Start: 02-13-2028 LIPID SCREEN LIPID SCREEN [facility] Start: 02-12-2028 Urine microalbumin profile [facility] Start: 08-15-2027 LIPID SCREEN LIPID SCREEN [facility] Start: 02-08-2027 LIPID SCREEN LIPID SCREEN [facility] Start: 02-05-2027 Diabetes Screening Diabetes Screenin g [facility] Start: 11-02-2026 LIPID SCREEN LIPID SCREEN [facility] Start: 08-07-2026 Diabetes Screening Diabetes Screenin g [facility] Start: 02-12-2026 DIABETES SCREEN DIABETES SCREEN [facility] Start: 02-12-2026 Diabetes Screening Diabetes Screenin g [facility] Start: 08-15-2025 Annual PCP Team Knitter Mechanic doug Disease Visit Annual PCP Team Chronic Disease Visit [facility] Start: 08-15-2025 Covid-19 Vaccine () Covid-19 Vaccine () [facility] Comment on above: Postponed from 04/17 (Declined at this time) Start: 08-15-2025 DIABETES SCREEN DIABETES SCREEN [facility] Start: 04-08-2025 Annual PCP Team Knitter Mechanic doug Disease Visit Annual PCP Team Chronic Disease Visit [facility] Start: 02-13-2025 End: 05-15-2025 Comprehensive metabolic 2000 panel - Serum or Plasma COMPREHENSIVE METABOLIC PANEL Lab Routine Mixed hyperlipidemia Expected: 02/13/2025 (Approximate), Expires: 05/15/2025 [facility] Comment on above: Expected: 02/13/2025 (Approximate), Expires: 05/15/2025 Start: 02-13-2025 End: 05-15-2025 Hemoglobin A1c in Blood HEMOGLOBIN A1C Lab Routine Elevated glucose Expected: 02/13/2025 (Approximate), Expires: 05/15/2025 [facility] Comment on above: Expected: 02/13/2025 (Approximate), Expires: 05/15/2025 Start: 02-13-2025 End: 05-15-2025 Lipid 1996 panel - Serum or Plasma LIPID PANEL BASIC Lab Routine Mixed hyperlipidemia Expected: 02/13/2025 (Approximate), Expires: 05/15/2025 [facility] Work Phone: Comment on above: Expected: 02/13/2025 (Approximate), Expires: 05/15/2025 Start: 02-09-2025 End: 02-09-2025 Patient encounter procedure 02/09/2025 11:20 AM EDT Office Visit [facility] [address] [place] [address] Deepak Rivers MD [address] [place] [address] 6 month follow up [facility] Comment on above: 6 month follow up Start: 02-08-2025 Annual PCP Team Kn[employer] Disease Visit Annual PCP Team Chronic Disease Visit [facility] Start: 02-08-2025 Anxiety Screening Anxiety Screening [facility] Start: 02-08-2025 Covid-19 Vaccine () Covid-19 Vaccine () [facility] Comment on above: Postponed from 04/17 (Declined at this time) Start: 02-08-2025 Depression Screening Depression Scre ening [facility] Start: 02-08-2025 DIABETES SCREEN DIABETES SCREEN [facility] Start: 02-08-2025 RSV Vaccine (1 - 1-d ose 60+ series) RSV Vaccine (1 - 1-dose 60+ series) [facility] Comment on above: Postponed from 04/26 (Declined at this time) Start: 02-08-2025 RSV Vaccine (1 - Ris k 60-74 years 1-dose series) RSV Vaccine (1 - Risk 60-74 years 1-dose series) [facility] Comment on above: Postponed from 04/26 (Declined at this time) Start: 02-07-2025 [facility] Start: 02-06-2025 Clostridioides diffi cile DNA [Presence] in Unspecified specimen by MONIE with probe detection [facility] Start: 02-06-2025 Enteric precautions [facility] Start: 02-06-2025 Lactoferrin [Presenc e] in Stool by Immunoassay [facility] Start: 02-06-2025 Nucleic acid assay [facility] Start: 02-06-2025 [facility] Start: 02-06-2025 Admission procedure [facility] Start: 02-06-2025 Hospital admission, emergency, from emergency room, medical nature [facility] Start: 02-06-2025 End: 02-06-2025 [facility] Start: 02-06-2025 Bacteria identified in Blood by Culture Blood Culture [facility] Start: 06-23-2025 Bacteria identified in Urine by Culture Urine Culture [facility] Start: 11-22-2024 Patient discharge [facility] Start: 11-21-2024 End: 11-22-2024 [facility] Start: 11-21-2024 Oxygen therapy [facility] Start: 11-21-2024 Application of intermittent pneumatic compression device [facility] Start: 11-21-2024 Following clinical pathway protocol [facility] Start: 11-21-2024 Admission procedure [facility] Start: 11-21-2024 Ambulation therapy management [facility] Start: 11-21-2024 Application of device W [facility] Start: 11-21-2024 Assessment of risk o f venous thromboembolism [facility] Start: 11-21-2024 Catheterization of vein [facility] Start: 11-21-2024 Following clinical pathway protocol [facility] Start: 11-21-2024 Incentive spirometry [facility] Start: 11-21-2024 Introduction of urin kristine catheter [facility] Start: 11-21-2024 Measuring intake and output [facility] Start: 11-21-2024 Neurovascular assessment [facility] Start: 11-21-2024 Patient education [facility] Start: 11-21-2024 Procedure discontinued [facility] Start: 11-21-2024 Provision of activit y privileges [facility] Start: 11-21-2024 Referral to occupati onal therapist [facility] Start: 11-21-2024 Vital signs measurements [facility] Start: 11-21-2024 Wound care [facility] Start: 11-21-2024 Anes arthroscopic to margareth shoulder replacement ANESTH SHOULDER REPLACEMENT [facility] Start: 11-21-2024 Arthroplasty glenohu meral joint total shoulder RECONSTRUCT SHOULDER JOINT [facility] Start: 11-03-2024 [facility] Start: 11-02-2024 DIABETES SCREEN DIABETES SCREEN [facility] Start: 08-15-2024 End: 08-15-2024 Patient encounter procedure 08/15/2024 12:00 PM EST Office Visit [facility] [address] [place] [address] Deepak Rivers MD [address] [place] [address] 6 mo f/u [facility] Comment on above: 6 mo f/u Start: 08-10-2024 End: 11-09-2024 Comprehensive metabolic 2000 panel - Serum or Plasma COMPREHENSIVE METABOLIC PANEL Lab Routine Hypertension, unspecified type Mixed hyperlipidemia Elevated glucose Expected: 08/10/2024 (Approximate), Expires: 11/09/2024 [facility] Work Phone: Comment on above: Expected: 08/10/2024 (Approximate), Expires: 11/09/2024 Start: 08-10-2024 End: 11-09-2024 Hemoglobin A1c in Blood HEMOGLOBIN A1C Lab Routine Elevated glucose Expected: 08/10/2024 (Approximate), Expires: 11/09/2024 [facility] Comment on above: Expected: 08/10/2024 (Approximate), Expires: 11/09/2024 Start: 08-10-2024 End: 11-09-2024 Lipid 1996 panel - Serum or Plasma LIPID PANEL BASIC Lab Routine Hypertension, unspecified type Mixed hyperlipidemia Elevated glucose Expected: 08/10/2024 (Approximate), Expires: 11/09/2024 [facility] Comment on above: Expected: 08/10/2024 (Approximate), Expires: 11/09/2024 Start: 08-07-2024 Annual PCP Team Knitter Mechanic doug Disease Visit Annual PCP Team Chronic Disease Visit [facility] Start: 08-07-2024 HIV screening HIV Screening [facility] Comment on above: Postponed from 04/26 (Declined at this time) Start: 08-07-2024 Screening for malign ant neoplasm of cervix [facility] Comment on above: Postponed from 07/23 (Declined at this time) Postponed from 07/23 (Declined at this time) Start: 04-24-2024 ANNUAL PCP TEAM SUPERVISOR STITCHING DEPARTMENT DOUG DISEASE VISIT ANNUAL PCP TEAM CHRONIC DISEASE VISIT [facility] Start: 04-17-2024 Covid-19 Vaccine ( season) Covid-19 Vaccine () [facility] Start: 04-17-2024 Covid-19 Vaccine () Covid-19 Vaccine ( season) [facility] Start: 04-17-2024 Influenza vaccination Influenza Vacc ine (#1) [facility] Start: 04-08-2024 End: 04-08-2024 Patient encounter procedure 04/08/2024 11:00 AM EDT Office Visit Family [facility] [address] [place], [place] [id number] Nuzhat Estrada APRN.PLUNGER SHOVEL OPERATOR [address] [place], [place] [address] Wellness [facility] Comment on above: Wellness Start: 03-13-2024 ANNUAL PCP TEAM SUPERVISOR STITCHING DEPARTMENT DOUG DISEASE VISIT ANNUAL PCP TEAM CHRONIC DISEASE VISIT [facility] Start: 02-13-2024 COLORECTAL CANCER SCREENING COLORECTAL CANCER SCREENING [facility] Comment on above: Postponed from 04/26 (Declined at this time) Start: 02-13-2024 COVID-19 VACCINE (#1) COVID-19 VACCI NE (#1) [facility] Comment on above: Postponed from 10/24 (Declined at this time) Start: 02-13-2024 Screening for malign ant neoplasm of colon Colorectal Cancer Screening [facility] Comment on above: Postponed from 04/26 (Declined at this time) Start: 02-09-2024 End: 02-09-2024 Patient encounter procedure 02/09/2024 11:00 AM EDT Office Visit [facility] [address], [place] [address] Deepak Rivers MD [address] [place] [address] 6 month follow up [facility] Comment on above: 6 month follow up Start: 08-17-2023 Behavioral Health Screening Behavioral Health Screening [facility] Start: 08-17-2023 Depression Assessment Depression Ass essment [facility] Start: 08-15-2023 ANNUAL PCP TEAM SUPERVISOR STITCHING DEPARTMENT DOUG DISEASE VISIT ANNUAL PCP TEAM CHRONIC DISEASE VISIT [facility] Start: 04-28-2023 ANNUAL PCP TEAM SUPERVISOR STITCHING DEPARTMENT DOUG DISEASE VISIT ANNUAL PCP TEAM CHRONIC DISEASE VISIT [facility] Start: 04-28-2023 HIV SCREENING HIV SCREENING [facility] Comment on above: Postponed from 04/26 (Declined at this time) Start: 04-28-2023 Influenza vaccination LUNG CANCER SC REENING [facility] Comment on above: Postponed from 05/06 (Declined at this time) Start: 04-28-2023 SPIROMETRY SPIROMETRY [facility] Comment on above: Postponed from 04/26 (Declined at this time) Start: 04-17-2023 Covid-19 Vaccine () Covid-19 Vaccine () [facility] Start: 04-17-2023 Influenza vaccination C [facility] Start: 02-13-2023 ANNUAL PCP TEAM SUPERVISOR STITCHING DEPARTMENT DOUG DISEASE VISIT ANNUAL PCP TEAM CHRONIC DISEASE VISIT [facility] Start: 02-13-2023 BP CONTROLLED (<130/80) BP CONTROLLE D (<130/80) [facility] Start: 02-09-2023 End: 04-11-2023 Comprehensive metabolic 2000 panel - Serum or Plasma COMP METABOLIC PANEL Lab Routine Mixed hyperlipidemia Hypertension, unspecified type Expected: 02/09/2023, Expires: 04/11/2023 [facility] Work Phone: Comment on above: Expected: 02/09/2023 , Expires: 04/11/2023 Start: 02-09-2023 End: 04-11-2023 Hemoglobin A1c in Blood HGB A1C Lab Routine Elevated glucose Expected: 02/09/2023, Expires: 04/11/2023 [facility] Work Phone: Comment on above: Expected: 02/09/2023 , Expires: 04/11/2023 Start: 02-09-2023 End: 04-11-2023 Lipid 1996 panel - Serum or Plasma LIPID PANEL BASIC Lab Routine Mixed hyperlipidemia Expected: 02/09/2023, Expires: 04/11/2023 [facility] Work Phone: Comment on above: Expected: 02/09/2023 , Expires: 04/11/2023 Start: 11-12-2022 ANNUAL PCP TEAM SUPERVISOR STITCHING DEPARTMENT ODUG DISEASE VISIT ANNUAL PCP TEAM CHRONIC DISEASE VISIT [facility] Start: 08-17-2022 DEPRESSION ASSESSMENT DEPRESSION ASS ESSMENT [facility] Start: 08-15-2022 End: 10-15-2022 Comprehensive metabolic 2000 panel - Serum or Plasma COMP METABOLIC PANEL Lab Routine Hypertension, unspecified type Mixed hyperlipidemia Elevated glucose Expected: 08/15/2022 (Approximate), Expires: 10/15/2022 [facility] Work Phone: Comment on above: Expected: 08/15/2022 (Approximate), Expires: 10/15/2022 Start: 08-15-2022 End: 10-15-2022 Hemoglobin A1c in Blood HGB A1C Lab Routine Elevated glucose Expected: 08/15/2022 (Approximate), Expires: 10/15/2022 [facility] Work Phone: Comment on above: Expected: 08/15/2022 (Approximate), Expires: 10/15/2022 Start: 08-15-2022 End: 10-15-2022 Lipid 1996 panel - Serum or Plasma LIPID PANEL BASIC Lab Routine Hypertension, unspecified type Mixed hyperlipidemia Elevated glucose Expected: 08/15/2022 (Approximate), Expires: 10/15/2022 [facility] Work Phone: Comment on above: Expected: 08/15/2022 (Approximate), Expires: 10/15/2022 Start: 07-23-2022 HPV TESTING HPV TESTING [facility] Start: 07-23-2022 PAP TESTING PAP TESTING [facility] Start: 05-14-2022 Adult depression screening assessment DEPRESSION SCREENING [facility] Start: 05-14-2022 COVID-19 VACCINE (#1) COVID-19 VACCI NE (#1) [facility] Comment on above: Postponed from 04/26 (Declined at this time) Postponed from 10/24 (Declined at this time) Start: 05-14-2022 COVID-19 VACCINE (1) COVID-19 VACCIN E (1) [facility] Comment on above: Postponed from 04/26 (Declined at this time) Start: 04-17-2022 Influenza vaccination INFLUENZA (#1) [facility] Start: 02-11-2022 End: 04-13-2022 Comprehensive metabolic 2000 panel - Serum or Plasma COMP METABOLIC PANEL Lab Routine Mixed hyperlipidemia Elevated glucose Hypertension, unspecified type Expected: 02/11/2022 (Approximate), Expires: 04/13/2022 [facility] Work Phone: Comment on above: Expected: 02/11/2022 (Approximate), Expires: 04/13/2022 Start: 02-11-2022 End: 04-13-2022 Hemoglobin A1c/Hemoglobin.total in Blood HGB A1C Lab Routine Elevated glucose Expected: 02/11/2022 (Approximate), Expires: 04/13/2022 [facility] Work Phone: Comment on above: Expected: 02/11/2022 (Approximate), Expires: 04/13/2022 Start: 02-11-2022 End: 04-13-2022 LIPID PANEL BASIC LIPID PANEL BASIC Lab Routine Mixed hyperlipidemia Elevated glucose Hypertension, unspecified type Expected: 02/11/2022 (Approximate), Expires: 04/13/2022 [facility] Work Phone: Comment on above: Expected: 02/11/2022 (Approximate), Expires: 04/13/2022 Start: 02-11-2022 End: 04-13-2022 VITAMIN D 25 HYDROXY VITAMIN D 25 HYDROXY Lab Routine Vitamin D deficiency Expected: 02/11/2022 (Approximate), Expires: 04/13/2022 [facility] Work Phone: Comment on above: Expected: 02/11/2022 (Approximate), Expires: 04/13/2022 Start: 11-13-2021 End: 01-13-2022 Hemoglobin.gastrointestin al.lower [Presence] in Stool by Immunoassay FECAL OCCULT BLOOD TEST Lab Routine Screen for colon cancer Expected: 11/13/2021, Expires: 01/13/2022 [facility] Work Phone: Comment on above: Expected: 11/13/2021 , Expires: 01/13/2022 Start: 08-17-2021 DEPRESSION ASSESSMENT DEPRESSION ASS ESSMENT [facility] Start: 2021 RSV Vaccine (1 - 1-d ose 60+ series) RSV Vaccine (1 - 1-dose 60+ series) [facility] Start: 07-23-2020 Screening for malign ant neoplasm of cervix Cervical Cancer Screening [facility] Start: 05-06-2020 Influenza vaccination LUNG CANCER SC REENING [facility] Start: 05-06-2020 Screening for malign ant neoplasm of lung Lung Cancer Screening [facility] Start: 02-23-2020 COLORECTAL CANCER SCREENING COLORECTAL CANCER SCREENING [facility] Start: 02-23-2020 FECAL OCCULT BLOOD FECAL OCCULT BLOO D [facility] Start: 02-23-2020 Screening for malign ant neoplasm of colon [facility] Start: 06-22-2016 PNEUMOCOCCAL (2 - PCV) PNEUMOCOCCAL (2 - PCV) [facility] Start: 06-22-2016 Pneumococcal vaccination Pneum ococcal Vaccine (2 - PCV) [facility] Start: 05-25-2016 Mammography [facility] Start: 05-25-2016 Screening for malign ant neoplasm of breast Mammogram Screening [facility] Start: 2006 COLOGUARD (FIT-DNA) COLOGUARD (FIT-D NA) [facility] Start: 2006 Colonoscopy COLONOSCOPY [facility] Start: [address] COLONOGRAPHY [facility] Start: 2006 Screening for malign ant neoplasm of colon [facility] Start: 2006 SIGMOIDOSCOPY SIGMOIDOSCOPY [facility] Start: 1991 Zoledronic acid therapy ALPHA- 1 ANTITRYPSIN DEFICIENCY SCREENING [facility] Start: 1979 BP CONTROLLED (<130/80) BP CONTROLLE D (<130/80) [facility] Start: 1979 HIV SCREENING HIV SCREENING [facility] Start: 1979 HIV screening HIV Screening [facility] Start: 1979 SPIROMETRY SPIROMETRY [facility] Start: 1961 COVID-19 VACCINE (#1) COVID-19 VACCI NE (#1) [facility] COLOGUARD COLOGUARD Lab Ro utine Screening for colon cancer Ordered: 04/24/2023 [facility] Work Phone: Comment on above: Ordered: 04/24/2023 COLOGUARD COLOGUARD Lab Ro utine Screening for colon cancer Ordered: 04/08/2024 [facility] Work Phone: Comment on above: Ordered: 04/08/2024 End: 10-06-2025 DBT Breast - bilateral screening FRANCIA SCREENING W [facility] Radiology Routine Encounter for screening mammogram for breast cancer 1 Occurrences starting 09/06/2024 until 10/06/2025 [facility] Work Phone: Comment on above: 1 Occurrences starti ng 09/06/2024 until 10/06/2025 Hemoglobin.gastroint estin al.lower [Presence] in Stool by Immunoassay FECAL OCCULT BLOOD TEST Lab Routine Screening for colon cancer Ordered: 04/28/2022 [facility] Work Phone: Comment on above: Ordered: 04/28/2022 Hemoglobin.gastroint estin al.lower [Presence] in Stool by Immunoassay FECAL OCCULT BLOOD TEST Lab Routine Screening for colon cancer Ordered: 08/15/2022 [facility] Work Phone: Comment on above: Ordered: 08/15/2022 Lactic acid measurement [facility] End: 11-21-2023 FRANCIA SCREENING FRANCIA SCREENING Radiology Routine Encounter for screening mammogram for breast cancer 1 Occurrences starting 10/22/2022 until 11/21/2023 [facility] Work Phone: Comment on above: 1 Occurrences starti ng 10/22/2022 until 11/21/2023 End: 11-05-2024 MG Breast Screening FRANCIA SCREENING Radiology Routine Encounter for screening mammogram for breast cancer 1 Occurrences starting 10/07/2023 until 11/05/2024 [facility] Work Phone: Comment on above: 1 Occurrences starti ng 10/07/2023 until 11/05/2024 Ova OR parasites identification [facility] Patient Education ED Fracture, U pper Extremity ED Fracture, Shoulder [facility] Work Phone: Patient referral [facility] Work Phone: End: 12-12-2022 Screening mammography bi 2-view breast inc cad FRANCIA SCREENING Radiology Routine Encounter for screening mammogram for malignant neoplasm of breast 1 Occurrences starting 11/12/2021 until 12/12/2022 [facility] Work Phone: Comment on above: 1 Occurrences starti ng 11/12/2021 until 12/12/2022 [facility]rine [facility] Immunizations Immunization Date Immunization Notes Care Provider Kristie lockett 08-15-2024 influenza, seasonal, injectable Deepak Rivers MD Work Phone: [facility] 08-07-2023 influenza, injectabl e, quadrivalent, contains preservative Deepak Rivers MD Work Phone: [facility] 08-07-2023 pneumococcal conjuga te (PCV20) vaccine, 20 valent (PREVNAR 20) Deepak Rivers MD Work Phone: [facility] 08-07-2023 influenza virus vacc ine, unspecified formulation Nuzhat Estrada FUEL CELL BINDER.PLUNGER SHOVEL OPERATOR Work Phone: [facility] 04-28-2022 influenza, injectabl e, quadrivalent, contains preservative Nuzhat Estrada FUEL CELL BINDER.PLUNGER SHOVEL OPERATOR Work Phone: [facility] 04-28-2022 influenza virus vacc ine, unspecified formulation Nigel Viveros FUEL CELL BINDER.PLUNGER SHOVEL OPERATOR Work Phone: [facility] 05-14-2021 influenza, injectabl e, quadrivalent, contains preservative Deepak Rivers MD Work Phone: [facility] 07-27-2020 influenza, injectabl e, quadrivalent, contains preservative Deepak Rivers MD Work Phone: [facility] 08-30-2019 influenza, injectabl e, quadrivalent, contains preservative Deepak Rivers MD Work Phone: [facility] 08-30-2019 zoster vaccine recombinant Deepak Rivers MD Work Phone: [facility] 04-27-2019 zoster vaccine recombinant Deepak Rivers MD Work Phone: [facility] 08-24-2018 influenza, injectabl e, quadrivalent, contains preservative Deepak Rivers MD Work Phone: [facility] 02-11-2018 tetanus toxoid, redu vesta diphtheria toxoid, and acellular pertussis vaccine, adsorbed Deepak Rivers MD Work Phone: [facility] 07-17-2017 influenza, injectabl e, quadrivalent, contains preservative Deepak Rivers MD Work Phone: [facility] 06-22-2015 pneumococcal polysaccharide vaccine, 23 valent Deepak Rivers MD Work Phone: [facility] Work Phone: Payers Date Payer Category Payer Self-pay 2016 [employer] BLUE CARD PPO OOS [id number] 2016 Unknown [employer]M BLUE CARD PPO OOS [id number] 2016-Present [phone] [address] [place] [id number] PPO [id number] 2016 Unknown [employer]M BLUE CARD PPO OOS [id number] 2016-Present [phone] [address] [place] [address] PPO [id number] 2016 Unknown [id number] Unknown [facility] [id number] Unknown [id number] Unknown [id number] Unknown [id number] Unknown [id number] Unknown [id number] Unknown [id number] Social History Date Type Detail Facility Start: 02-17-2014 End: 02-06-2025 Tobacco smoking status NHIS Smokes tobacco daily [facility] Work Phone: History of tobacco use Cigarette Smoker [facility] Work Phone: Start: 02-17-2014 End: 02-12-2023 Cigarettes smoked current (pack per day) - Reported 1 [facility] Start: 02-17-2014 End: 04-08-2024 Tobacco use and exposure Smokeless tobacco non-user [facility] Work Phone: Start: 11-12-2021 End: 08-15-2024 Alcohol intake Current non-drinker of alcohol (finding) [facility] Start: 07-27-2020 History SDOH Social Connections Phone 5 [facility] Start: 07-27-2020 History SDOH Social Connections Get Together 2 [facility] Start: 07-27-2020 History SDOH Social Connections Jainism 1 [facility] Start: 07-27-2020 History SDOH Social Connections Living 3 [facility] Start: 07-27-2020 Education 15 [facility] Start: 08-30-2019 End: 04-28-2022 Tobacco Comment about 16 cigs per day [facility] Start: 1960 Sex Assigned At Female C [facility] Start: 11-02-2021 End: 04-28-2022 Exposure to SARS-CoV-2 (event) Not sure [facility] Start: 07-27-2020 End: 02-12-2023 Social connection and isolation panel [facility] Do you belong to any clubs or organizations such as orthodoxy groups, unions, fraternal or athletic groups, or school groups? No [facility] Are you now , , , , never or living with a partner? [facility] How often to you hav e a drink containing alcohol? Patient refused [facility] Do you feel stress - tense, restless, nervous, or anxious, or unable to sleep at night because your mind is troubled all the time - these days [OSQ] Very much [facility] (I/We) worried wheth er (my/our) food would run out before (I/we) got money to buy more. Never true [facility] Start: 04-24-2020 Gender identity Identifies as female gender (finding) [facility] Start: 11-03-2024 End: 11-22-2024 Sex Female (finding) [facility] NEGATED: Highlighted row Not [facility] Medical Equipment Procedure Code Equipment Code Equipment Origin al Text Equipment Identifier Dates FIBERTAPE FDA Start: 11-21-2024 Reverse shoulder prosthesis base plate ()[id number] FDA Start: 11-21-2024 Coated shoulder humeral stem prosthesis ()[id number] FDA Start: 11-21-2024 FIBERTAPE FDA Start: 11-21-2024 FIBERTAPE FDA Start: 11-21-2024 FIBERTAPE FDA Start: 11-21-2024 FIBERTAPE FDA Start: 11-21-2024 screw FDA Start: 11-21-2024 Polyethylene rev erse shoulder prosthesis cup ()[id number] FDA Start: 11-21-2024 Reverse shoulder prosthesis head ()[id number] FDA Start: 11-21-2024 Orthopaedic bone screw, non-bioabsorbable, sterile ()[id number] FDA Start: 11-21-2024 Goals Date Patient Goal Desired Activity /State Functional Status Date Assessment Result Facility 11-22-2024 Functional status Ambulates;Chair [facility] Work Phone: 02-17-2014 Are you deaf, or do you have serious difficulty hearing No 02/17/2014 12:16 PM EDT Merline Herrera RN No [facility] Work Phone: 02-17-2014 Are you blind, or do you have serious difficulty seeing, even when wearing glasses No 02/17/2014 12:16 PM EDT Merline Herrera RN No [facility] 02-17-2014 Do you have serious difficulty walking or climbing stairs No 02/17/2014 12:16 PM EDMerline Mario RN No [facility] 02-17-2014 Do you have difficul ty dressing or bathing No 02/17/2014 12:16 PM EDMerline Mario RN No [facility] 02-17-2014 Because of a physica l, mental, or emotional condition, do you have difficulty doing errands alone such as visiting a physician's office or shopping No 02/17/2014 12:16 PM EDMerline Mario RN No [facility] Mental Status Date Assessment Result Facility 11-22-2024 Cognitive function Level Of Cons ciousness Awake;Alert;Appropriate;Fol lows Commands [facility] Work Phone: 11-22-2024 Cognitive function Voice/Name [facility] Work Phone: 02-17-2014 Because of a physica l, mental, or emotional condition, do you have serious difficulty concentrating, remembering, or making decisions No 02/17/2014 12:16 PM EDT Merline Herrera RN No [facility] Clinical Notes 11-12-2021 to 02-06-2025 Note Date & Type Note Facility 02-06-2025 Discharge summary [facility] 02-06-2025 Radiology Diagnostic study note [facility] Imaging Services [address] [place] [address] Abdomen/Pelvis W IV Cont ONLY MR#: [id number] Acct: [id number] Name: ADRIANNA BARNEY Rep #: [id number] : 1960 F 64 From: Bettie Hodge MD PCP: Dr. Deepak Rivers MD Status: RE G ER Study:Abdomen/Pelvis W IV Cont ONLY Date of E xam: 02/06/25 Exam# [id number] Ordering Dr: Seb Ernandez MD PROCEDURE: ABDOMEN/PELVIS W IV CONT ONLY [...] atelectasis versus tiny pleural effusion. Reading Location: [id number] CC: Dr. Seb Ernandez MD; Dr. Deepak Rivers MD ~ Research Microbiologist: Signed [facility] 02-06-2025 Radiology Diagnostic study note [facility] Imaging Services [address] [place] [address] Chest 1 View (Portable) MR#: [id number] Acct: [id number] Name: ADRIANNA BARNEY Rep #: [id number] : 1960 F 64 From: Bettie Hodge MD PCP: Dr. Deepak Rivers MD Status: RE G ER Study:Chest 1 View (Portable) Date of Exam: 02/06/25 Exam# [id number] Ordering Dr: Seb Ernandez MD PROCEDURE: CHEST [...] Ernandez MD; Dr. Deepak Rivers MD ~ Research Microbiologist: Signed [facility] 02-06-2025 Discharge summary Note Date/Time February 06, 2025 10:04pm [facility] Medical Records Department [address] [place] [address] Emergency Department Summary 02/06/25 MR#: [id number] Acct: [id number] Name: ADRIANNA BARNEY Rep #:[id number] : 1960 64 From: Seb Ernandez MD [...] mg tablet,extended 12.5 mg PO QHS PRN OR N insomnia 11/14/24 11/20/24 History release,multiphase albuterol [...] 88.4 H Lymph % (Auto) 4.1 L [place]yer % (Auto) 2.5 Eos % (Auto) 0.0 [...] Clarity Cloudy Urine pH 5.0 Ur Specific [place] 1.015 Urine Protein 500 H Urine Glucose [...] atelectasis versus tiny pleural effusion. Reading Location: [id number] Chest X-Ray 02/06/25 19:47 IMPRESSION: No acute cardiopulmonary abnormality. Reading Location: [id number] Critical Care Time Critical Care Time: Yes Critical care time (excluding procedures): 30-74 minutes (32), Including time spent:, Discussing w/Patient &/or Family/Medical Staff Specialist, Discussing w/Consultants (Discussed with Dr. Cam with urology), Arranging Admission or Transfer and Performing Direct Patient Care at Bedside Discharge Plan Dx/Rx/DC Orders Clinical Impression: Calculus of renal pelvis, Pyelonephritis, Severe sepsis Disposition Disposition: [facility] What to do if you have Problems For any increased pain, shortness of breath, bleeding, nausea or vomiting, chestpain, or any unexpected problems, contact your Primary Care Provider. Call [facility] ([phone]) or report to the closest Emergency Room. Call 911 if necessary. 02/06/252203 <Electronically signed by Seb Ernandez MD> Cosigner Signature (if applicable): CC: Dr. Deepak Rivers MD ~ Signed [facility] Work Phone: 1(974) 573-851205-19-2025 Telephone encounter Note* Telephone Encounter - Nigel [...] 90 days. Authorizing Provider: NIGEL VIVEROS APRN.CNP [facility]05-19-2025 Miscellaneous Notes* Telephone Encounter - Nigel Viveros [...] 02, 2025 12:14 PM documented in this encounterMagruder Hospital05-19-2025 Telephone encounter Note * Telephone Encounter - [...] Munguia LPN January 02, 2025 12:14 PM [facility]04-22-2025 Telephone encounter Note* Telephone Encounter - Nigel Viveros APRN.CNP - 12/06/2024 8:46 AM EDT Marbella noted. Nigel Viveros APRN.CNP [facility]04-22-2025 Miscellaneous Notes* Telephone Encounter - Nigel Viveros APRN.CNP - 12/06/2024 8:46 AM EDT Marbella noted. Nigel Viveros APRN.LAURITA * Telephone Encounter - Katlyn Harris RN - 12/05/2024 10:54 AM EDT Nuzhat PT with [facility] calls to let provider know that [...] home. Katlyn Harris RN documented in this encounterMagruder Hospital04-21-2025 Telephone encounter Note * Telephone Encounter - Katlyn Harris RN - 12/05/2024 10:54 AM EDT Nuzhat PT with [facility] calls to let provider know that [...] monitor bp at home. Katlyn Harris RN [facility]04-08-2025 Discharge summary [facility] Medical Records Department [address] [place] [address] Discharge Summary 11/22/24 1200 MR#: [id number] Acct: [id number] Name: ADRIANNA BARNEY Rep #:[id number] : 1960 64 From: Padma HAJI PCP: Dr. Deepak Rivers MD Status:[facility] Location: [place] [address] Providers Date of Admission: 11/21/24 Date of [...] right shoulder arthroplasty. Anatomic alignment. Reading Location: [id number] Shoulder X-Ray 11/21/24 15:45 IMPRESSION: Postoperative right reverse shoulder arthroplasty. Reading Location: [id number] D/C Instructions Discharge Diet: No restrictions Discharge [...] Dr. Deepak Rivers MD; RAISSA Jimenez~ Signed [facility]04-08-2025 [facility] Medical Records Department [address] [place] [address] Discharge Summary 11/22/24 1200 MR#: [id number] Acct: [id number] Name: ADRIANNA BARNEY Rep #: [id number] : 1960 64 From: Padma HAJI PCP: Dr. Deepak Rivers MD Status:ADM IRINEO Location: [place] [address] Providers Date of Admission: 11/21/24 Date of [...] alignment. Reading Location: R (more content not included)...[facility] 11-22-2024 Radiology Diagnostic study note [facility] Imaging Services [address] [place] [address] Shoulder One View MR#: [id number] Acct: [id number] Name: ADRIANNA BARNEY Rep #: [id number] : 1960 F 64 From: Mike Peguero MD PCP: Dr. Deepak Rivers MD Status: JORDEN CABELLO Study:Shoulder One View Date of Exam: Exam# [id number] Ordering Dr: Man Flores DO PROCEDURE: SHOULDER [...] right shoulder arthroplasty. Anatomic alignment. Reading Location: [id number] CC: Dr. Deepak Rivers MD; Dr. Man Flores DO ~ Research Microbiologist: Signed [facility]04-07-2025 Consult note Author Shyam Sanchez [facility] Note Date/Time November 21, 2024 4:39 pm [facility] Medical Records Department [address] [place] [address] Anesthesia Postop Eval II 11/21/24 1639 MR#: [id number] Acct: [id number] Name: ADRIANNA BARNEY Rep #:[id number] : 1960 64 From: Shyam Sanchez MD PCP: Dr. Deepak Rivers MD Status:AD Pamella CABELLO Y Race: C Location: [place] [address] Anesthesia Postop Eval I Sum Postop Eval Completion status Anesthesia document: Postop Eval 1 completed: Yes Anesthesia Postop Eval I Summary Anesthesia Postop Eval I Summary: Anesthesia Postop Eval I: Assessment Summary Airway patent Yes 11/21/24 15:33 STILL OPERATOR BATCH OR CONTINUOUS.JBLOU Spontaneous unlabored Yes 11/21/24 15:33 STILL OPERATOR BATCH OR CONTINUOUS.JBLOU respirations Mental status Awake,Calm 11/21/24 15:33 STILL OPERATOR BATCH OR CONTINUOUS.JBLOU nausea No 11/21/24 15:33 STILL OPERATOR BATCH OR CONTINUOUS.JBLOU Vomiting No 11/21/24 15:33 STILL OPERATOR BATCH OR CONTINUOUS.JBLOU Anesthesia Postop Eval I: Fluid Summary Crystalloid volume administer 1,500 04/07/25 15:33 STILL OPERATOR BATCH OR CONTINUOUS.JBLOU (ml) Colloids volume administered ( ml) Blood Product volume administered (ml) Total IV fluid infused 1,500 11/21/24 15:33 STILL OPERATOR BATCH OR CONTINUOUS.ROMELOU Anesthesia Postop Eval I: Summary Notes Anesthesia Complication No 11/21/24 15:33 STILL OPERATOR BATCH OR CONTINUOUS.NADINE Anesthesia Complication Comment: Post-operative progress note Anesthesia: Postop Eval II Evaluation Mental status: Awake Pain Level: 0 nausea: No Vomiting: No 11/21/24 1639 <Electronically signed by Shyam Sanchez MD > Date _ Shyam Sanchez MD Cosigner Signature: Date CC: ~ Signed [facility] Work Phone: 1(280) 898-727404-07-2025 Consult note Author Matthew Fish [facility] Note Date/Time November 21, 2024 3:33 pm [facility] Medical Records Department [address] [place] [address] Anesthesia Postop Eval I 11/21/24 1532 MR#: [id number] Acct: [id number] Name: ADRIANNA BARNEY Rep #:[id number] : 1960 64 From: Matthew CHRISTIANSON PCP: Dr. Deepak Rivers MD Status: [facility] Race: C Location: [place] [address] Anesthesia: Postop Eval I Current Vital Signs [...] Matthew Fish CRNA> Date _ Matthew Fish STILL OPERATOR BATCH OR CONTINUOUS Cosigner Signature: Date CC: ~ Signed [facility] Work Phone: 1(334) 333-324004-07-2025 Evaluation note* Diagnosis Onset Date Resolution Status Admit Date Proximal humerus fracture acute November 21, 2024 3:16pm [facility] Work Phone: 1(449) 484-292804-07-2025 Evaluation note* Diagnosis Onset Date Resolution Status [...] Severe sepsis acute February 06, 2025 10:00pm [facility] Work Phone: 1(285) 243-256604-07-2025 Radiology Diagnostic study note [facility] Imaging Services [address] [place] [address] Shoulder min 2 Views MR#: [id number] Acct: [id number] Name: ADRIANNA BARNEY Rep #: [id number] : 1960 F 64 From: Martha Mann MD PCP: Dr. Deepak Rivers MD Status: JORDEN CABELLO Study:Shoulder min 2 Views Date of Exam: 11/21/24 Exam# [id number] Ordering Dr: Man Flores DO PROCEDURE: SHOULDER [...] Postoperative right reverse shoulder arthroplasty. Reading Location: [id number] CC: Dr. Deepak Rivers MD; Dr. Man Flores DO ~ Research Microbiologist: Signed [facility]04-07-2025 Consult note [facility] Medical Records Department [address] [place] [address] Anesthesia Postop Eval II 11/21/24 1639 MR#: [id number] Acct: [id number] Name: ADRIANNA BARNEY Rep #:[id number] : 1960 64 From: Shyam Sanchez MD PCP: Dr. Deepak Rivers MD Status:AD M IRINEO Y Race: C Location: [facility] MS307 -1 Anesthesia Postop Eval I Sum Postop Eval Completion status Anesthesia document: Postop Eval 1 completed: Yes Anesthesia Postop Eval I Summary Anesthesia Postop Eval I Summary: Anesthesia Postop Eval I: Assessment Summary Airway patent Yes 11/21/24 15:33 STILL OPERATOR BATCH OR CONTINUOUS.JBLOU Spontaneous unlabored Yes 11/21/24 15:33 STILL OPERATOR BATCH OR CONTINUOUS.JBLOU respirations Mental status Awake,Calm 11/21/24 15:33 STILL OPERATOR BATCH OR CONTINUOUS.JBLOU nausea No 11/21/24 15:33 STILL OPERATOR BATCH OR CONTINUOUS.JBLOU Vomiting No 11/21/24 15:33 STILL OPERATOR BATCH OR CONTINUOUS.JBLOU Anesthesia Postop Eval I: Fluid Summary Crystalloid volume administer 1,500 11/21/24 15:33 STILL OPERATOR BATCH OR CONTINUOUS.JBLOU (ml) Colloids volume administered ( ml) Blood Product volume administered (ml) Total IV fluid infused 1,500 11/21/24 15:33 STILL OPERATOR BATCH OR CONTINUOUS.JBLOU Anesthesia Postop Eval I: Summary Notes Anesthesia Complication No 11/21/24 15:33 STILL OPERATOR BATCH OR CONTINUOUS.JBLOU Anesthesia Complication Comment: Post-operative progress note Anesthesia: Postop Eval II Evaluation Mental status: Awake Pain Level: 0 nausea: No Vomiting: No 11/21/24 1639 > Date _ Shyam Rojas Signature: Date CC: ~ Signed [facility]04-07-2025 Procedure note [facility] Medical Records Department [address] [place] [place] [address] Operative Report 11/21/24 1549 MR#: [id number] Acct: [id number] Name: ADRIANNA BARNEY Rep #:[id number] : 1960 64 From: Man collier DO PCP: Dr. Deepak Rivers MD Status:[facility] Location: [place] [address] Operative Report (Standard) Operative Information Date of Procedure: 11/21/24 Pre-Operative Diagnosis: Right proximal humerus four-part fracture Post-Operative Diagnosis: Right proximal humerus four-part fracture Surgery/Procedure Performed: Right reverse total shoulder arthroplasty stores naval: Yes Spray Drier: Padma Grace Tasks completed by program assistant: Opening & closing, Dissecting tissue, Implanting device, Hemostasis: Electrocautery and Retracting Additional operations and intelligence assistant?: No Type of Anesthesia: General/Regional RN [...] head Description of surgery: Patient arrived to [facility] morning of the procedure and was [...] positioned in the beachchair position. A well-padded head waiter was applied. The nonoperative extremity was placed [...] impactedthe baseplate to an appropriate depth. A [place] was used to confirm depth. 4 peripheral [...] again close interval. I then placed a pnclba-uh-clagn suture through theanterior superior region of the [...] in the operative [facility]. [facility] in stable condition. Need for skilled operations and intelligence assistant: Padma Grace PA-C was critical to the outcome of thecase. During the course of the procedure the physician operations and intelligence assistant played a vitalrole. Her intimate knowledge [...] MD; Dr. Man Flores DO ~* Signed [facility]04-07-2025 Consult note [facility] Medical Records Department [address] [place] [address] Anesthesia Postop Eval I 11/21/24 1532 MR#: [id number] Acct: [id number] Name: ADRIANNA BARNEY Rep #:[id number] : 1960 64 From: Matthew CHRISTIANSON PCP: Dr. Deepak Rivers MD Status:RE [facility] Race: C Location: [place] [address] Anesthesia: Postop Eval I Current Vital Signs [...] Postop Eval 1 completed: Yes 11/21/24 1533 STILL OPERATOR BATCH OR CONTINUOUS> Date _ Matthew Fish STILL OPERATOR BATCH OR CONTINUOUS Cosigner Signature: Date CC: ~ Signed [facility]04-07-2025 Consult note Author Shyam Sanchez [facility] Note Date/Time November 21, 2024 10:4 4am [facility] Medical Records Department [address] [place] [address] Pre-Anesthesia Evaluation 11/21/24 1043 MR#: [id number] Acct: [id number] Name: ADRIANNA BARNEY Rep #:[id number] : 1960 64 From: Shyam Sanchez MD PCP: Dr. Deepak Rivers MD Status:RE [facility] Race: C Location: [place] [address] ASA Classification* ASA Classification ASA Classification: 2 [...] Replacement, Reverse Anesthesia History Anesthesia History - cornice upholsterer: Anesthesia History - cornice upholsterer Hx Hospitalization No 11/14/24 12:38 Any Problems [...] take am of surgery PONV PONV - cornice upholsterer: PONV - cornice upholsterer Female Yes 11/14/24 12:38 HX of Motion [...] 11/18/24 10:49 Respiratory Assessment Respiratory Assessment - cornice upholsterer: Respiratory Tract Infection Hx - cornice upholsterer Hx Respiratory Tract Infection No 11/14/24 12:38 STOP Sleep Apnea STOP Sleep Apnea - cornice upholsterer: STOP Sleep Apnea - cornice upholsterer Hx Hypertension Yes: PER PT, CONTROLLED ON [...] 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 Use History - cornice upholsterer: Tobacco Use History - cornice upholsterer Tobacco Use Smoking Status Current every day smoker 11/14/24 12:38 Hx Tobacco Use Yes 11/14/24 12:38 Years Smoking Packs Smoked per Day Smoking Cessation Date was within the last 15 years Hx Smoking Cessation Date Hx Smoking Cessation Counseling Hematologic Medial History Hematologic Hx - cornice upholsterer: Hematologic Medical Hx - chorus master Hx of Blood Transfusion No 11/14/24 12:38 [...] confused, unrespo /Reproduction History /Reproductive History - cornice upholsterer: /Reproductive Hx- cornice upholsterer Hx Now No 11/14/24 12:38 Gestational Age [...] 75 mls/hr 11/21/24 13:05 IV 11/22/24 02:24 .[id number] ALICE Lactated Ringer's 1,000 mls @ 125 [...] mg tablet,extended 12.5 mg PO QHS PRN OR N insomnia 11/14/24 11/20/24 History release,multiphase Allergy/AdvReac [...] MD Cosigner Signature: Date CC: ~ Signed [facility] Work Phone: 1(669) 932-279404-07-2025 Consult note [facility] Medical Records Department [address] [place] [address] Pre-Anesthesia Evaluation 11/21/24 1043 MR#: [id number] Acct: [id number] Name: ADRIANNA BARNEY Rep #:[id number] : 1960 64 From: Shyam Sanchez MD PCP: Dr. Deepak Rivers MD Status:RE G [facility] Y Race: C Location: [facility]1 ASA Classification* ASA Classification ASA Classification: 2 [...] Replacement, Reverse Anesthesia History Anesthesia History - cornice upholsterer: Anesthesia History - cornice upholsterer Hx Hospitalization No 11/14/24 12:38 Any Problems [...] take am of surgery PONV PONV - cornice upholsterer: PONV - cornice upholsterer Female Yes 11/14/24 12:38 HX of Motion [...] 11/18/24 10:49 Respiratory Assessment Respiratory Assessment - cornice upholsterer: Respiratory Tract Infection Hx - cornice upholsterer Hx Respiratory Tract Infection No 11/14/24 12:38 STOP Sleep Apnea STOP Sleep Apnea - cornice upholsterer: STOP Sleep Apnea - cornice upholsterer Hx Hypertension Yes: PER PT, CONTROLLED ON [...] 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 Use History - cornice upholsterer: Tobacco Use History - cornice upholsterer Tobacco Use Smoking Status Current every day smoker 11/14/24 12:38 Hx Tobacco Use Yes 11/14/24 12:38 Years Smoking Packs Smoked per Day Smoking Cessation Date was within the last 15 years Hx Smoking Cessation Date Hx Smoking Cessation Counseling Hematologic Medial History Hematologic Hx - cornice upholsterer: Hematologic Medical Hx - chorus master Hx of Blood Transfusion No 11/14/24 12:38 [...] confused, unrespo /Reproduction History /Reproductive History - cornice upholsterer: /Reproductive Hx- cornice upholsterer Hx Now No 11/14/24 12:38 Gestational Age [...] 75 mls/hr 11/21/24 13:05 IV 11/22/24 02:24 .[id number] ALICE Lactated Ringer's 1,000 mls @ 125 [...] mg tablet,extended 12.5 mg PO QHS PRN OR N insomnia 11/14/24 11/20/24 History release,multiphase Allergy/AdvReac [...] MD Cosigner Signature: Date CC: ~ Signed [facility]03-28-2025 Telephone encounter Note* Telephone Encounter - Nigel Viveros APRN.CNP - 11/11/2024 10:40 AM EDT The following approved medication requests have been transmitted electronically. Requested Prescriptions Pending Prescriptions Disp Refills simvastatin (ZOCOR) 20 mg tablet 90 tablet 3 Sig: Take 1 tablet by mouth daily at bedtime. Nigel Viveros APRN.CNP [facility]03-28-2025 Miscellaneous Notes* Telephone Encounter - Nigel Viveros [...] 11, 2024 10:22 AM documented in this encounterMagruder Hospital03-28-2025 Telephone encounter Note * Telephone Encounter - [...] TRACE Ortez November 11, 2024 10:22 AM [facility]03-21-2025 Radiology Diagnostic study note [facility] Imaging Services [address] [place], [place] [address] Extremity Upper without Contra MR#: [id number] Acct: [id number] Name: ADRIANNA BARNEY Rep #: [id number] : 1960 F 64 From: Wade Ayala DO PCP: Dr. Deepak Rivers MD Status: RE G CLI Study:Extremity Upper without Contra Date of Exam: 11/03/24 Exam# [id number] Ordering Dr: Ashlyn Teixeira PROCEDURE: Noncontrast CT [...] RAISSA Mendiola; Dr. Deepak Rivers MD ~ Research Microbiologist: Signed [facility]03-20-2025 Discharge summary [facility] Medical Records Department [address] [place] [address] Emergency Department Summary 11/03/24 MR#: [id number] Acct: [id number] Name: ADRIANNA BARNEY Rep #:[id number] : [...] with concern for fracture she presentsfor evaluation [facility] Medical History no medical history no [...] you have any further concerns Print Language: Mozambican Disposition Disposition: Home, Self Care What to do if you have Problems For any increased pain, shortness of breath, bleeding, nausea or vomiting, chestpain, or any unexpected problems, contact your Primary Care Provider. Call [facility] ([phone]) or report tothe closest Emergency Room. Call 911 if necessary. 11/03/24 0740 Cosigner Signature (if applicable): CC: Dr. Deepak Rivers MD ~ Signed [facility]03-20-2025 Radiology Diagnostic study note [facility] Imaging Services [address] [place], [place] [id number] Shoulder min 2 Views MR#: [id number] Acct: [id number] Name: ADRIANNA BARNEY Rep #: [id number] : 1960 F 64 From: Wade Ayala DO PCP: Dr. Deepak Rivers MD Status: RE G ER Study:Shoulder min 2 Views Date of Exam: 11/03/24 Exam# [id number] Ordering Dr: Germania Geiger DO PROCEDURE: Right [...] head inferior to the glenoid. Reading [facility] CC: Dr. Deepak Rivers MD; Luis Geiger DO ~ Research Microbiologist: Signed [facility]03-20-2025 Radiology Diagnostic study note [facility] Imaging Services [address] [place], [place] [address] Humerus min 2 Views MR#: [id number] Acct: [id number] Name: ADRIANNA BARNEY Rep #: [id number] : 1960 F 64 From: Wade Ayala DO PCP: Dr. Deepak Rivers MD Status: RE G ER Study:Humerus min 2 Views Date of Exam: 11/03/24 Exam# [id number] Ordering Dr: Germania Geiger DO PROCEDURE: Right [...] Deepak Rivers MD; Luis Geiger DO ~ Research Microbiologist: Signed [facility]02-24-2025 Telephone encounter Note* Telephone Encounter - Nigel Viveros APRN.CNP - 10/10/2024 11:31 AM EST Approved. [facility] website checked and validated. All prescriptions [...] 90 days. Authorizing Provider: NIGEL VIVEROS APRN.CNP [facility]02-24-2025 Miscellaneous Notes* Telephone Encounter - Nigel Viveros APRN.CNP - 10/10/2024 11:31 AM EST Approved. [facility] website checked and validated. All prescriptions [...] 10, 2024 11:09 AM documented in this encounterMagruder Hospital02-24-2025 Telephone encounter Note * Telephone Encounter - [...] Munguia LPN October 10, 2024 11:09 AM [facility]01-21-2025 NotePatient Outreach ([place]) ADRIANNA BARNEY ([id number]) 1960 F Date Time Provider Department 09/06/24 ELDERBROCK, DEEPAK D FAMPWS During your visit today, we recorded the following information about you: Allergies As of Date: 09/06/2024 (No Known Allergies) Date Reviewed: 08/15/2024 Reviewed by: Nancy Ramirez MA - Fully Assessed Visit Diagnosis:Encounter for screening mammogram for breast cancer [Z12.31] Order(s):FRANCIA SCREENING W BENY [2610462] Order #: [id number] FUTURE Prescriptions as of 10/07/2024 - Zolpidem [...] 08/15/2022 Encounter Status:Closed by STEVO ALSTONUSEMalcolm on 10/07/24[facility] 08-15-2024 History of Present illness Narrative* [...] Past Histories independently gathered by the clinical administrative support technician and the remaining scribed note accurately describes [...] AM. Nancy Ramirez MA documented in this encounterMagruder Hospital12-30-2024 NoteHNO ID: [id number] Author: DEEPAK RIVERS MD Service: ? Author [...] restriction, DASH or Mediterranean (more content not included)...[facility]12-02-2024 Telephone encounter Note* Telephone Encounter - [...] was identified. 07/18/2024 by Nuzhat Estrada APRN.CNP [facility]12-02-2024 Miscellaneous Notes* Telephone Encounter - Nuzhat Estrada [...] 18, 2024 7:23 AM documented in this encounterMagruder Hospital12-02-2024 Telephone encounter Note * Telephone Encounter - [...] Self LPN July 18, 2024 7:23 AM [facility]09-20-2024 Telephone encounter Note* Telephone Encounter - Marleni Munguia LPN - 05/06/2024 12:48 PM EDT Faxed to [facility], patient notified. [facility]09-20-2024 Miscellaneous Notes* Telephone Encounter - Marleni Munguia LPN - 05/06/2024 12:48 PM EDT Faxed to [facility], patient notified. * Telephone Encounter - Nigel Viveros APRN.CNP - 05/06/2024 12:43 PM EDT Letter written. Can you fax to [facility] and let the patient know? Nigel Viveros APRN.CNP * Telephone Encounter - Jazmine Gordon RN - 05/05/2024 2:41 PM EDT Patient reports Dr. Rivers wrote Rx for her Ambien with quantity of 30 with 2 refills. Patient states her insurance will only allow a fill of 15 tablets at a time[address] States Dr. Rivers has senta letter in the past to [facility] authorizing 30 tablets to be filled and is asking if PCP office can send a new letter? Please call patient with update. Thank you. documented in this encounterMagruder Hospital09-20-2024 Telephone encounter Note * Telephone Encounter - Nigel Viveros APRN.CNP - 05/06/2024 12:43 PM EDT Letter written. Can you fax to [facility] and let the patient know? Nigel Viveros APRN.CNP [facility]09-19-2024 Telephone encounter Note* Telephone Encounter - Jazmine Gordon RN - 05/05/2024 2:41 PM EDT Patient reports Dr. Rivers wrote Rx for her Ambien with quantity of 30 with 2 refills. Patient states her insurance will only allow a fill of 15 tablets at a time[address] States Dr. Rivers has senta letter in the past to [facility] authorizing 30 tablets to be filled and is asking if PCP office can send a new letter? Please call patient with update. Thank you. [facility]08-30-2024 Telephone encounter Note* Telephone Encounter - Deepak Rivers MD - 04/15/2024 2:37 PM EDT OK to refill as ordered Deepak Rivers MD [facility]08-30-2024 Miscellaneous Notes* Telephone Encounter - Deepak Rivers [...] 15, 2024 1:09 PM documented in this encounterMagruder Hospital08-30-2024 Telephone encounter Note * Telephone Encounter - [...] Mcclelland RN April 15, 2024 1:09 PM [facility]08-23-2024 Instructions* Patient Instructions* Nuzhat Estrada APRN.CNP - [...] Promotion: - Eat healthy -- go to [employer] to get started - Have a yearly [...] drive - Wear sunscreen documented in this encounterMag[facility] Hospital08-23-[facility]24 History of Present illness Narrative* Nuzhat Estrada [...] discussed and patient voices understanding. Nuzhat Estrada APRN.PLUNGER SHOVEL OPERATOR This note was partially generated using Dragon voice recognition system. Note was reviewed for accuracy. There may be minor misspellings or grammar miscues with [employer] voice recognition. documented in this encounterMagruder Hospital08-23-2024 NoteHNO ID: [id number] Author: NUZHAT ESTRADA APRN.LAURITA Service: ? Author [...] intact. Mood: Pleasant, en (more content not included)...[facility] 02-09-2024 History of Present illness Narrative* Deepak Rivers MD - 02/09/2024 11:00 AM EDT Chief Complaint Patient presents with: F/U 6 Month HPI Adrianna Barney is a 63 year old female who presents here today for a 6 month follow up. Here with her spouse for routine visit. Has concerts lined up this summer to go see. [facility] New one about [...] Past Histories independently gathered by the clinical administrative support technician and the remaining scribed note accurately describes [...] AM. Solange Martinez MA documented in this encounterMagruder Hospital06-25-2024 NoteHNO ID: [id number] Author: DEEPAK RIVERS MD Service: ? Author [...] 242 (H) HDL Felicity (more content not included)...[facility]06-24-2024 Telephone encounter Note* Telephone Encounter - [...] 90 days. Authorizing Provider: NIGEL VIVEROS APRN.CNP [facility] Miscellaneous Notes* Telephone Encounter - Nigel Viveros APRN.CNP - 02/08/2024 8:07 AM EDT [facility]. All prescriptions have [...] NOV-02/09/24 Mimi Self LPN documented in this encounterMagruder Hospital06-24-2024 Telephone encounter Note * Telephone Encounter - Mimi Self LPN - 02/08/2024 7:47 AM EDT JULIAN[facility]-08/07/24 Labs-08/07/24Jun-02/09/24 Mimi Self LPN [facility]04-15-2024 Miscellaneous Notes* Telephone Encounter - Nigel Viveros APRN.CNP - 11/30/2023 10:23 AM EDT The following approved medication requests have been transmitted electronically. Requested Prescriptions Pending Prescriptions Disp Refills simvastatin (ZOCOR) 20 mg tablet 90 tablet 3 Sig: Take 1 tablet by mouth daily at bedtime. Nigel Viveros APRN.PLUNGER SHOVEL OPERATOR * Telephone Encounter - Nancy Ramirez MA [...] you. Nancy Ramirez MA. documented in this encounterMagruder Hospital04-15-2024 Miscellaneous Notes* Telephone Encounter - Nigel Viveros [...] you. Nancy Ramirez MA. documented in this encounterMagruder Hospital04-15-2024 Miscellaneous Notes* Telephone Encounter - Nigel Viveros [...] you. Nancy Ramirez MA. documented in this encounterMagruder Hospital04-02-2024 Miscellaneous Notes* Telephone Encounter - Carol Angel [...] you. Myron Bower LPN. documented in this encounterMagruder Hospital11-01-2023 History of Present illness Narrative* Price Rahman APRN.PLUNGER SHOVEL OPERATOR - 06/17/2023 3:20 PM EDT Subjective HPI [...] Wt 99.8 kg (220 lb) LMP 02/25/2012 RpR850% BMI 35.57 kg/m Review of Systems Constitutional: [...] of care. This note was generated using [employer] software. It may contain errors in wording, punctuation, or spelling. Price Rahman APRN.LAURITA documented in this encounterMagruder Hospital10-19-2023 Miscellaneous Notes* Telephone Encounter - Carol Angel [...] you. Carol Angel LPN. documented in this encounterMagruder Hospital09-08-2023 Instructions* Patient Instructions* Nuzhat Estrada APRN.CNP - [...] Promotion: - Eat healthy -- go to [employer] to get started - Have a yearly [...] drive - Wear sunscreen documented in this encounterMagruder Hospital09-08-2023 History of Present illness Narrative* Nuzhat sEtrada APRN.CNP - 04/24/2023 9:40 AM EDT This [...] 2009, normal, HPV negative, Does not have INTERMEDIATE DESIGNER, Consult placed Colonoscopy: Has never had completed, [...] for depression, anxiety, or suicidal ideation. EXAM: [facility] 02/25/2012 PHYSICAL EXAM: General Appearance: Well appearing, [...] APRN.LAURITA This note was partially generated using [employer] voice recognition system. Note was reviewed for accuracy. There may be minor misspellings or grammar miscues with [employer] voice recognition. documented in this encounterMagruder Hospital07-28-2023 History of Present illness Narrative* Megan Hernandez [...] presents with: F/U 1 month: BP HPI Adrianna Barney is a 62 year old female who presents here today for Chronic Medical Conditions. For 1 month follow-up for blood pressure. Was in the office to see PCP on 02/12. BP 180/90. Was prescribed amlodipine. Also taking losartan, hydrochlorothiazide. Does not check blood pressure at home.No side effects from medication. Some ongoing stressors with packing for [place]. She has not chest pain, shortness of [...] needed. This note was partly generated using [employer] voice recognition dictation and may contain some misspelled or inaccurate words missed on review. documented in this encounterMagruder Hospital06-26-2023 Miscellaneous Notes* Telephone Encounter - Solange Martinez Ma - 02/09/2023 1:02 PM EDT [employer] message sent to pt notifying her that [...] to let them know. documented in this encounterMagruder Hospital05-08-2023 Miscellaneous Notes* Telephone Encounter - Deepak Rivers MD - 12/22/2022 12:18 PM EDT OK to refill as ordered Deepak Rivers MD * Telephone Encounter - Deepak Rivers MD - 12/22/2022 12:18 PM EDT OK to refill as ordered Deepak Rivers MD * Telephone Encounter - Nancy Ramirez Ma - 12/22/2022 9:20 AM EDT Last office visit: 08/15/22 F/u scheduled: 02/12/23 Last refilled on: Ambien #[id number] with 2 refill on 10/01/22 Nancy Ramirez Ma documented in this encounterMagruder Hospital05-08-2023 Miscellaneous Notes* Telephone Encounter - Nancy Ramirez Ma - 12/22/2022 11:24 AM EDT See refill request from 12/21/22 documented in this encounterMagruder Hospital03-14-2023 Miscellaneous Notes* Telephone Encounter - Nigel Viveros [...] you. Carol Angel LPN documented in this encounterMagruder Hospital12-30-2022 History of Present illness Narrative* Deepak Rivers [...] Past Histories independently gathered by the clinical administrative support technician and the remaining scribed note accurately describes [...] AM. Nancy Ramirez Ma documented in this encounterMagruder Hospital11-21-2022 Miscellaneous Notes* Telephone Encounter - Nigel Viveros [...] advise. Mimi Self LPN documented in this encounterMagruder Hospital09-12-2022 Instructions* Patient Instructions* Nuzhat Estrada APRN.LAURITA - [...] Promotion: - Eat healthy -- go to [employer] to get started - Have a yearly [...] drive - Wear sunscreen documented in this encounterMagruder Hospital09-12-2022 History of Present illness Narrative* Nuzhat Estrada [...] discussed and patient voices understanding. Nuzhat Estrada APRN.PLUNGER SHOVEL OPERATOR This note was partially generated using [employer] voice recognition system. Note was reviewed for accuracy. There may be minor misspellings or grammar miscues with [employer] voice recognition. documented in this encounterMagruder Hospital08-18-2022 Miscellaneous Notes* Telephone Encounter - Deepak Rivers [...] filled 01/28/22 Please review and advise. Mimi Self LPN documented in this encounterMagruder Hospital06-30-2022 History of Present illness Narrative* Deepak Rivers MD - 02/13/2022 9:00 AM EDT Chief Complaint Patient presents with: F/U 3 Month HPI Adrianna Barney is a 61 year old female who presents here today for 3 month follow up. Here with her . Went out to [place] earlier this year. [place] a camping trip. Tobacco [...] Past Histories independently gathered by the clinical administrative support technician and the remaining scribed note accurately describes [...] AM. Solange Martinez Ma documented in this encounterMagruder Hospital06-14-2022 Miscellaneous Notes* Telephone Encounter - Deepak Rivers [...] you. Carol Angel LPN documented in this encounterMagruder Hospital03-29-2022 History of Present illness Narrative* Deepak Rivers MD - 11/12/2021 9:00 AM EDT Chief Complaint Patient presents with: 6 Month Exam HPI Adrianna Barney is a 61 year old female who presents here today for 6 month follow up. Here with her . Is going to be leaving for [facility] to visit his brother. Denies any [...] Past Histories independently gathered by the clinical administrative support technician and the remaining scribed note accurately describes [...] AM. Nancy Ramirez Ma documented in this encounterMagruder HospitalDischarge summary Author Luis Geiger [facility] Note Date/Time November 03, 2024 7:4 0am [facility] Medical Records Department [address] [place] [address] Emergency Department Summary 11/03/24 MR#: [id number] Acct: [id number] Name: ADRIANNA BARNEY Rep #:[id number] : [...] concern for fracture she presents for evaluation [facility] Medical History no medical history no [...] you have any further concerns Print Language: Mozambican Disposition Disposition: Home, Self Care What to do if you have Problems For any increased pain, shortness of breath, bleeding, nausea or vomiting, chestpain, or any unexpected problems, contact your Primary Care Provider. Call [facility] ([phone]) or report to the closest Emergency Room. Call 911 if necessary. 11/03/24 0740 <Electronically signed by Luis Geiger DO> Cosigner Signature (if applicable): CC: Dr. Deepak Rivers MD ~ Signed [facility] Work Phone: Discharge summary Author Padma Grace [facility] Note Date/Time November 22, 2024 12:1 1pm [facility] Medical Records Department [address] [place] [address] Discharge Summary 11/22/24 1200 MR#: [id number] Acct: [id number] Name: ADRIANNA BARNEY Rep #:[id number] : 1960 64 From: Padma HAJI PCP: Dr. Deepak Rivers MD Status:AD M IRINEO Location: MS3 [id number] Providers Date of Admission: 11/21/24 Date of [...] right shoulder arthroplasty. Anatomic alignment. Reading Location: [id number] Shoulder X-Ray 11/21/24 15:45 IMPRESSION: Postoperative right reverse shoulder arthroplasty. Reading Location: [id number] D/C Instructions Discharge Diet: No restrictions Discharge [...] Dr. Deepak Rivers MD; RAISSA Jimenez~ Signed [facility] Work Phone: Evaluation note* Diagnosis Hypertension, [...] Other abnormal glucose documented in this encounter [facility]* Diagnosis Primary insomnia Persistent disorder of initiating or maintaining sleep documented in this encounter [facility]* Diagnosis Hypertension, unspecified type- Primary Primary insomnia Persistent disorder of initiating or maintaining sleep Elevated glucose Other abnormal glucose Mixed hyperlipidemia Tobacco abuse disorder Tobacco use disorder documented in this encounter [facility]* Diagnosis Primary insomnia Persistent disorder of initiating or maintaining sleep documented in this encounter [facility]* Diagnosis Wellness examination- Primary Pulmonary emphysema, unspecified emphysema type (HCC) Hypertension, unspecified type Mixed hyperlipidemia Primary insomnia Persistent disorder of initiating or maintaining sleep Screening for colon cancer Special screening for malignant neoplasms, colon Encounter for immunization Need for other specified prophylactic vaccination against single bacterial disease documented in this encounter [facility]* Diagnosis Primary insomnia Persistent disorder of initiating or maintaining sleep [facility]* Diagnosis Hypertension, unspecified type- Primary Screening for colon cancer Special screening for malignant neoplasms, colon Primary insomnia Persistent disorder of initiating or maintaining sleep Mixed hyperlipidemia Tobacco abuse disorder Tobacco use disorder [facility]* Diagnosis Encounter for screening mammogram for breast cancer documented in this encounter [facility]* Diagnosis Mixed hyperlipidemia documented in this encounter [facility]* Diagnosis Primary insomnia Persistent disorder of initiating or maintaining sleep [facility]* Diagnosis Primary insomnia Persistent disorder of initiating or maintaining sleep documented in this encounter [facility]* Diagnosis Primary insomnia- Primary Persistent disorder of initiating or maintaining sleep Mixed hyperlipidemia Hypertension, unspecified type Elevated glucose Other abnormal glucose documented in this encounter [facility]* Diagnosis Hypertension, unspecified type- Primary documented in this encounter [facility]* Diagnosis Wellness examination- Primary Hypertension, unspecified type Mixed hyperlipidemia Primary insomnia Persistent disorder of initiating or maintaining sleep Tobacco abuse disorder Tobacco use disorder Women's annual routine gynecological examination Screening for colon cancer Special screening for malignant neoplasms, colon documented in this encounter [facility]* Diagnosis Primary insomnia Persistent disorder of initiating or maintaining sleep documented in this encounter [facility]* Diagnosis Eustachian tube dysfunction, bilateral- Primary [facility] Diagnosis Encounter for screening mammogram for breast cancer documented in this encounter [facility]* Diagnosis Mixed hyperlipidemia [facility] in [facility]* Diagnosis Primary insomnia Persistent disorder of initiating or maintaining sleep documented in this encounter [facility]* Diagnosis Mixed hyperlipidemia documented in this encounter [facility]* Diagnosis Pulmonary emphysema, unspecified emphysema type (HCC) documented [facility] encounter [facility]* Diagnosis Hypertension, unspecified type- Primary Primary insomnia Persistent disorder of initiating or maintaining sleep Mixed hyperlipidemia Elevated glucose Other abnormal glucose Tobacco abuse disorder Tobacco use disorder documented [facility]* Diagnosis Primary insomnia- Primary Persistent disorder [...] maintenance Routine general medical examination at a [facility] Anxiety and depression Dysthymic disorder Wellness examination- Primary Hypertension, unspecified type Mixed hyperlipidemia Primary insomnia Persistent disorder of initiating or maintaining sleep Elevated glucose Other abnormal glucose Tobacco abuse disorder Tobacco use disorder Screening for colon cancer Special screening for malignant neoplasms, colon documented in this encounter [facility] note* Diagnosis Primary insomnia- Primary Persistent disorder [...] maintenance Routine general medical examination at a [facility] care facility Weight gain Abnormal weight gain [...] or maintaining sleep documented in this encounter [facility]* Diagnosis Primary insomnia- Primary Persistent disorder [...] maintenance Routine general medical examination at a [facility] Weight gain Abnormal weight gain Sebaceous cyst Psychophysiological insomnia- Primary Persistent disorder of initiating or maintaining sleep Encounter for screening mammogram for malignant neoplasm of breast Other screening mammogram Tobacco abuse disorder Tobacco use disorder Routine gynecological examination Routine health maintenance Routine general medical examination at a [facility] Anxiety and depression Dysthymic disorder Primary insomnia- Primary Persistent disorder of initiating or maintaining sleep documented in this encounter [facility]* Diagnosis Primary insomnia- Primary Persistent disorder [...] maintenance Routine general medical examination at a [facility] Weight gain Abnormal weight gain Sebaceous cyst Psychophysiological insomnia- Primary Persistent disorder of initiating or maintaining sleep Encounter for screening mammogram for malignant neoplasm of breast Other screening mammogram Tobacco abuse disorder Tobacco use disorder Routine gynecological examination Routine health maintenance Routine general medical examination at a [facility] Anxiety and depression Dysthymic disorder Hypertension, unspecified type- Primary Primary insomnia Persistent disorder of initiating or maintaining sleep Tobacco abuse disorder Tobacco use disorder Mixed hyperlipidemia Pulmonary emphysema, unspecified emphysema type (HCC) Need for influenza vaccination Need for prophylactic vaccination and inoculation against influenza Elevated glucose Other abnormal glucose documented in this encounter [facility]* Diagnosis Primary insomnia- Primary Persistent disorder [...] maintenance Routine general medical examination at a [facility] care facility Anxiety and depression Dysthymic disorder Encounter for screening mammogram for breast cancer documented in this encounter [facility]* Diagnosis Primary insomnia- Primary Persistent disorder [...] maintenance Routine general medical examination at a [facility] care facility Weight gain Abnormal weight gain [...] or maintaining sleep documented in this encounter [facility]* Diagnosis Primary insomnia- Primary Persistent disorder [...] disorder Mixed hyperlipidemia documented in this encounter [facility] HospitalEvaluation noteNo assessment information availableWProMedica [facility] Work Phone: Evaluation note* Diagnosis Primary [...] maintenance Routine general medical examination at a [facility] care facility Anxiety and depression Dysthymic disorder Primary insomnia Persistent disorder of initiating or maintaining sleep documented in this encounter [facility] Discharge instructions Additional Instructions Please wear your sling for support and stabilization of your fracture. Sleep in more of an upright position to allow gravity to lengthen the fracture fragment out. Follow-up with orthopedics/Dr. Flores for repeat evaluation and to discuss need for surgical fixation of your shoulder. Return to the ER should you have any further concernsOhio[facility] Work Phone: Hospital Discharge instructions Additional Instructions Date of Discharge: 11/22/24[facility] Work Phone: Reason for referral (narrative)* Diagnostic Procedure Only (Routine) - Pending Review Specialty Diagnoses / Procedures Referred By Scarlett wiggins Referred To Contact [facility] Diagnoses Encounter for screening mammogram for malignant neoplasm of breast Procedures FRANCIA SCREENING SCREENING MAMMOGRAPHY BI 2-VIEW BREAST INC Deepak Grey MD [address] [place] [address] [address] [place] [id number] Referral ID Status Reason Start Date Expiration Date Visits Requested Visits Authorized [id number] Pending Review Auto-Generat ed Referral 11/12/2021 12/12/2022 1 1 [facility] for referral (narrative)* Diagnostic Procedure Only (Routine) - Pending Review Specialty Diagnoses / Procedures Referred By Scarlett wiggins Referred To Contact [facility] Diagnoses Encounter for screening mammogram for breast cancer Procedures FRANCIA SCREENING SCREENING MAMMOGRAPHY BI 2-VIEW BREAST INC Deepak Grey MD [address] [place] [address] [facility] [address] [place] [address] Referral ID Status Reason Start Date Expiration Date Visits Requested Visits Authorized [id number] Pending Review Auto-Generat ed Referral 10/22/2022 11/21/2023 1 1 [facility] Diagnostic Procedure Only (Routine) - Pending Review Specialty Diagnoses / Procedures Referred By Scarlett wiggins Referred To Contact [facility] Diagnoses Encounter for screening mammogram for breast cancer Procedures FRANCIA SCREENING SCREENING MAMMOGRAPHY BI 2-VIEW BREAST INC CAD Deepak Rivers MD [address] [place] [address] [facility] [address] [place] [address] Referral ID Status Reason Start Date Expiration Date Visits Requested Visits Authorized [id number] Pending Review Auto-Generat ed Referral 10/07/2023 11/05/2024 1 1 [facility] Summary Purpose Family History No Family History Records FoundNo Family History Records FoundNo Family History Records FoundNo Family History Records Found Advance Directives Advance Directive Response Recorded Date/ Time Living Will No November 03, 2024 6:03am Do you have a Healthcare Power of Stone Setter Apprentice? No November 03, 2024 6:03am Advance Directive Response Recorded Date/ Time Living Will No November 21, 2024 4:16pm Do you have a Healthcare Power of Stone Setter Apprentice? No November 21, 2024 4:16pm Living Will No November 03, 2024 6:03am Do you have a Healthcare Power of Stone Setter Apprentice? No November 03, 2024 6:03am Advance Directive Response Recorded Date/ Time Living Will No November 21, 2024 4:16pm Do you have a Healthcare Power of Stone Setter Apprentice? No November 21, 2024 4:16pm Living Will No November 03, 2024 6:03am Do you have a Healthcare Power of Stone Setter Apprentice? No November 03, 2024 6:03am Do you have a Healthcare Power of Stone Setter Apprentice? No February 06, 2025 7:12pm Reason for Referral Specialty Diagnoses / Procedures Referred By Scarlett t Referred To Contact Gynecology Diagnoses Women's annual routine gynecological examination Procedures CONSULT TO GYNECOLOGY OFFICE/OUTPATIENT [facility] 60-74 MINUTES Nuzhat Estrada APRN.PLUNGER SHOVEL OPERATOR [address] [place] [address] Referral ID Status Reason Start Date Expiration Date Visits Requested Visits Authorized [id number] Authorized PCP Requested Referral Auto-Generate d Referral [...] and content) DATE CREATED AUTHOR 04/27/2020 [facility] DATE CREATED AUTHOR AUTHOR'S ORGANIZ ATION 05/12/2020 [facility] DATE CREATED AUTHOR AUTHOR'S ORGANIZ ATION 12/10/2024 [facility] DATE CREATED AUTHOR AUTHOR'S ORGANIZ ATION 12/14/[address] [facility] Source Comments (unrecognize d section and content) In the event this informatio n is protected by the Federal Confidentiality of Alcohol and Drug Abuse Patient Records regulations: The Federal rules restrict any use of the information to criminally investigate or prosecute any alcohol or drug abuse patient.[facility] HospitalIn the event this information is protected by the Federal Confidentiality of Alcohol and Drug Abuse Patient Records regulations: The Federal rules restrict any use of the information to criminally investigate or prosecute any alcohol or drug abuse patient.[facility] HospitalIn the event this information is protected by the Federal Confidentiality of Alcohol and Drug Abuse Patient Records regulations: The Federal rules restrict any use of the information to criminally investigate or prosecute any alcohol or drug abuse patient.[facility] HospitalIn the event this information is protected by the Federal Confidentiality of Alcohol and Drug Abuse Patient Records regulations: The Federal rules restrict any use of the information to criminally investigate or prosecute any alcohol or drug abuse patient.[facility] HospitalIn the event this information is protected by the Federal Confidentiality of Alcohol and Drug Abuse Patient Records regulations: The Federal rules restrict any use of the information to criminally investigate or prosecute any alcohol or drug abuse patient.[facility] HospitalIn the event this information is protected by the Federal Confidentiality of Alcohol and Drug Abuse Patient Records regulations: The Federal rules restrict any use of the information to criminally investigate or prosecute any alcohol or drug abuse patient.[facility] HospitalIn the event this information is protected by the Federal Confidentiality of Alcohol and Drug Abuse Patient Records regulations: The Federal rules restrict any use of the information to criminally investigate or prosecute any alcohol or drug abuse patient.[facility] HospitalIn the event this information is protected by the Federal Confidentiality of Alcohol and Drug Abuse Patient Records regulations: The Federal rules restrict any use of the information to criminally investigate or prosecute any alcohol or drug abuse patient.[facility] HospitalIn the event this information is protected by the Federal Confidentiality of Alcohol and Drug Abuse Patient Records regulations: The Federal rules restrict any use of the information to criminally investigate or prosecute any alcohol or drug abuse patient.[facility] HospitalIn the event this information is protected by the Federal Confidentiality of Alcohol and Drug Abuse Patient Records regulations: The Federal rules restrict any use of the information to criminally investigate or prosecute any alcohol or drug abuse patient.[facility] HospitalIn the event this information is protected by the Federal Confidentiality of Alcohol and Drug Abuse Patient Records regulations: The Federal rules restrict any use of the information to criminally investigate or prosecute any alcohol or drug abuse patient.[facility] HospitalIn the event this information is protected by the Federal Confidentiality of Alcohol and Drug Abuse Patient Records regulations: The Federal rules restrict any use of the information to criminally investigate or prosecute any alcohol or drug abuse patient.[facility] HospitalIn the event this information is protected by the Federal Confidentiality of Alcohol and Drug Abuse Patient Records regulations: The Federal rules restrict any use of the information to criminally investigate or prosecute any alcohol or drug abuse patient.[facility] HospitalIn the event this information is protected by the Federal Confidentiality of Alcohol and Drug Abuse Patient Records regulations: The Federal rules restrict any use of the information to criminally investigate or prosecute any alcohol or drug abuse patient.[facility] HospitalIn the event this information is protected by the Federal Confidentiality of Alcohol and Drug Abuse Patient Records regulations: The Federal rules restrict any use of the information to criminally investigate or prosecute any alcohol or drug abuse patient.[facility] HospitalIn the event this information is protected by the Federal Confidentiality of Alcohol and Drug Abuse Patient Records regulations: The Federal rules restrict any use of the information to criminally investigate or prosecute any alcohol or drug abuse patient.[facility] HospitalIn the event this information is protected by the Federal Confidentiality of Alcohol and Drug Abuse Patient Records regulations: The Federal rules restrict any use of the information to criminally investigate or prosecute any alcohol or drug abuse patient.[facility] HospitalIn the event this information is protected by the Federal Confidentiality of Alcohol and Drug Abuse Patient Records regulations: The Federal rules restrict any use of the information to criminally investigate or prosecute any alcohol or drug abuse patient.[facility] HospitalIn the event this information is protected by the Federal Confidentiality of Alcohol and Drug Abuse Patient Records regulations: The Federal rules restrict any use of the information to criminally investigate or prosecute any alcohol or drug abuse patient.[facility] HospitalIn the event this information is protected by the Federal Confidentiality of Alcohol and Drug Abuse Patient Records regulations: The Federal rules restrict any use of the information to criminally investigate or prosecute any alcohol or drug abuse patient.[facility] HospitalIn the event this information is protected by the Federal Confidentiality of Alcohol and Drug Abuse Patient Records regulations: The Federal rules restrict any use of the information to criminally investigate or prosecute any alcohol or drug abuse patient.[facility] HospitalIn the event this information is protected by the Federal Confidentiality of Alcohol and Drug Abuse Patient Records regulations: The Federal rules restrict any use of the information to criminally investigate or prosecute any alcohol or drug abuse patient.[facility] HospitalIn the event this information is protected by the Federal Confidentiality of Alcohol and Drug Abuse Patient Records regulations: The Federal rules restrict any use of the information to criminally investigate or prosecute any alcohol or drug abuse patient.[facility] HospitalIn the event this information is protected by the Federal Confidentiality of Alcohol and Drug Abuse Patient Records regulations: The Federal rules restrict any use of the information to criminally investigate or prosecute any alcohol or drug abuse patient.[facility] HospitalIn the event this information is protected by the Federal Confidentiality of Alcohol and Drug Abuse Patient Records regulations: The Federal rules restrict any use of the information to criminally investigate or prosecute any alcohol or drug abuse patient.[facility] HospitalIn the event this information is protected by the Federal Confidentiality of Alcohol and Drug Abuse Patient Records regulations: The Federal rules restrict any use of the information to criminally investigate or prosecute any alcohol or drug abuse patient.[facility] HospitalIn the event this information is protected by the Federal Confidentiality of Alcohol and Drug Abuse Patient Records regulations: The Federal rules restrict any use of the information to criminally investigate or prosecute any alcohol or drug abuse patient.[facility] HospitalIn the event this information is protected by the Federal Confidentiality of Alcohol and Drug Abuse Patient Records regulations: The Federal rules restrict any use of the information to criminally investigate or prosecute any alcohol or drug abuse patient.[facility] HospitalIn the event this information is protected by the Federal Confidentiality of Alcohol and Drug Abuse Patient Records regulations: The Federal rules restrict any use of the information to criminally investigate or prosecute any alcohol or drug abuse patient.[facility] HospitalIn the event this information is protected by the Federal Confidentiality of Alcohol and Drug Abuse Patient Records regulations: The Federal rules restrict any use of the information to criminally investigate or prosecute any alcohol or drug abuse patient.[facility] HospitalIn the event this information is protected by the Federal Confidentiality of Alcohol and Drug Abuse Patient Records regulations: The Federal rules restrict any use of the information to criminally investigate or prosecute any alcohol or drug abuse patient.[facility] HospitalIn the event this information is protected by the Federal Confidentiality of Alcohol and Drug Abuse Patient Records regulations: The Federal rules restrict any use of the information to criminally investigate or prosecute any alcohol or drug abuse patient.[facility] HospitalIn the event this information is protected by the Federal Confidentiality of Alcohol and Drug Abuse Patient Records regulations: The Federal rules restrict any use of the information to criminally investigate or prosecute any alcohol or drug abuse patient.[facility] HospitalIn the event this information is protected by the Federal Confidentiality of Alcohol and Drug Abuse Patient Records regulations: The Federal rules restrict any use of the information to criminally investigate or prosecute any alcohol or drug abuse patient.[facility] Reason for Visit (unrecogniz ed section and [...] Care Teams (unrecognized sec tion and content) General Assembler Relationship Specialty Start Date End Date Deepak Rivers MD [address] [place], [place] [id number] PCP - General Family Practice 07/27/20 General Assembler Relationship Specialty Start Date End Date Deepak Rivers MD [address] [place], [place] [address] PCP - General Family Practice 07/27/20 General Assembler Relationship Specialty Start Date End Date Deepak Rivers MD [address] [place] [address] PCP - General Family Practice 07/27/20 General Assembler Relationship Specialty Start Date End Date Deepak Rivers MD [address] [facility] [place] [address] PCP - General Family Practice 07/27/20 General Assembler Relationship Specialty Start Date End Date Deepak Rivers MD [address] [facility] [place] [address] PCP - General Family Practice 07/27/20 General Assembler Relationship Specialty Start Date End Date Deepak Rivers MD [address] [facility] [place] [address] PCP - General Family Medicine 07/27/20 General Assembler Relationship Specialty Start Date End Date Deepak Rivers MD [address] [facility] [place] [address] PCP - General Family Medicine 07/27/20 General Assembler Relationship Specialty Start Date End Date Deepak Rivers MD [address] [facility] [place] [address] PCP - General Family Medicine 07/27/20 General Assembler Relationship Specialty Start Date End Date Deepak Rivers MD [address] [facility] [place] [address] PCP - General Family Medicine 07/27/20 General Assembler Relationship Specialty Start Date End Date Deepak Rivers MD [address] [facility] [place] [address] PCP - General Family Medicine 07/27/20 General Assembler Relationship Specialty Start Date End Date Deepak Rivers MD [address] [facility] [place] [address] PCP - General Family Medicine 07/27/20 General Assembler Relationship Specialty Start Date End Date Deepak Rivers MD [address] [facility] [place] [address] PCP - General Family Medicine 07/27/20 General Assembler Relationship Specialty Start Date End Date Deepak Rivers MD [address] [place] [address] PCP - General Family Medicine 07/27/20 General Assembler Relationship Specialty Start Date End Date Deepak Rivers MD [address] [place] [address] PCP - General Family Medicine 07/27/20 General Assembler Relationship Specialty Start Date End Date Deepak Rivers MD [address] [place] [address] PCP - General Family Medicine 07/27/20 General Assembler Relationship Specialty Start Date End Date Deepak Rivers MD [address] [place] [address] PCP - General Family Medicine 07/27/20 General Assembler Relationship Specialty Start Date End Date Deepak Rivers MD [address] [place] [address] PCP - General Family Medicine 07/27/20 General Assembler Relationship Specialty Start Date End Date Deepak Rivers MD [address] [place] [address] PCP - General Family Medicine 07/27/20 General Assembler Relationship Specialty Start Date End Date Deepak Rivers MD [address] [facility] [place] [address] PCP - General Family Medicine 07/27/20 General Assembler Relationship Specialty Start Date End Date Deepak Rivers MD [address] [place] [address] PCP - General Family Medicine 07/27/20 General Assembler Relationship Specialty Start Date End Date Deepak Rivers MD [address] [facility] [place] [address] PCP - General Family Medicine 07/27/20 General Assembler Relationship Specialty Start Date End Date Deepak Rivers MD [address] [place] [address] PCP - General Family Medicine 07/27/20 General Assembler Relationship Specialty Start Date End Date Deepak Rivers MD [address] [place] [address] PCP - General Family Medicine 07/27/20 General Assembler Relationship Specialty Start Date End Date Deepak Rivers MD [address] [place] [address] PCP - General Family Medicine 07/27/20 General Assembler Relationship Specialty Start Date End Date Deepak Rivers MD [address] [place] [address] PCP - General Family Medicine 07/27/20 Nuzhat Estrada, FUEL CELL BINDER.PLUNGER SHOVEL OPERATOR [address] [place] [address] Supervisor [employer]atic F[employer]izer Family Medicine 07/24/24 Nigel Viveros APRN.PLUNGER SHOVEL OPERATOR [address] [place] [address] Supervisor [employer] Family Medicine 08/02/24 General Assembler Relationship Specialty Start Date End Date Deepak Rivers MD [address] [place] [address] PCP - General Family Medicine 07/27/20 Nuzhat Estrada APRN.PLUNGER SHOVEL OPERATOR [address] [place] [address] Supervisor Phosphatic Fertilizer Family [facility] 07/24/24 Nigel Viveros APRN.PLUNGER SHOVEL OPERATOR [address] [place] [address] Supervisor Phosphatic Fertilizer [facility] 08/02/24 General Assembler Relationship Specialty Start Date End Date Deepak Rivers MD [address] [place] [address] PCP - General Family Medicine 07/27/20 Nuzhat Estrada APRN.PLUNGER SHOVEL OPERATOR [address] [place] [address] Supervisor Phosphatic Fertilizer [facility] 07/24/24 Nigel Viveros APRN.PLUNGER SHOVEL OPERATOR [address] [place], [place] [address] Supervisor Phosphatic Fertilizer [facility] 08/02/24 Team Status: Active Member Role Status [...] November 21, 2024 End: November 22, 2024 General Assembler Relationship Specialty Start Date End Date Deepak Rivers MD [address] [place] [address] PCP - General Family Medicine 07/27/20 Nuzhat Estrada APRN.PLUNGER SHOVEL OPERATOR [address] [place] [address] [facility] 07/24/24 Nigel Viveros APRN.PLUNGER SHOVEL OPERATOR [address] [place] [address] [facility] 08/02/24 General Assembler Relationship Specialty Start Date End Date Deepak Rivers MD [address] [place], [place] [address] PCP - General Family Medicine 07/27/20 Nigel Viveros APRN.PLUNGER SHOVEL OPERATOR [address] [place] [address] [facility] 08/02/24 Team Status: Active Member Role Status [...] BE BASED ON THE PRIMARY CLINICAL RECORDS. [facility]. provides no warranty or guarantee of the accuracy or completeness of information in this document.
[2025-02-06] MEDS: Piperacil/Tazobactam 3.375 GM in 0.9% Normal Saline (50mL MB+) 50 ML IV (23:31)
[2025-02-06 23:45] LABS: Reflex Lactate? Y
[2025-02-07] VITALS (23 sets, daily range): BP systolic 88–138; BP diastolic 37–86; PULSE 96–117; RESP 16–30; TEMP 36.7–38.8; O2SAT 91–98; BMI 34.4
[2025-02-07 00:19] LABS: Lactic Acid < 1.0 mmol/L (0.0-2.0)
[2025-02-07] MEDS: Piperacil/Tazobactam 3.375 GM in 0.9% Normal Saline (50mL MB+) 50 ML IV ×3 (05:20→22:07)
--- NOTE | 2025-02-07 06:47 | EX.PCM.CONCC ---
Assessment & Plan Assessment/Plan (1) Sepsis: PLAN: Plan RECOMMENDATIONS: 1. Continue broad-spectrum antimicrobials, pending culture results. 2. Urology following with tentative plans for cystoscopy and stent placement this morning. 3. Repeat morning labs. 4. The patient should remain n.p.o. for now. 5. Supplemental IV fluid hydration as ordered. 6. Heparin for DVT prophylaxis. IMPRESSIONS: 1. Sepsis The patient presented to the hospital with sepsis due to acute pyelonephritis with acute sepsis related organ dysfunction as evidenced by lactic acidemia and acute kidney injury. The patient did receive supplemental IV fluid hydration, but has not required vasopressor initiation. There are tentative plans by urology to proceed with cystoscopy and stent placement. Recommend continuing broad-spectrum antimicrobials as ordered, pending culture results. 2. Acute kidney injury Most likely prerenal in etiology in the setting of sepsis and gastrointestinal losses from diarrhea. The patient did receive supplemental IV fluid hydration. Recommend repeating morning labs. Continue to monitor urine output for now. No current indication for renal replacement therapy. 3. History of hypertension/hyperlipidemia/obesity Complicates care, management, recovery and prognosis. Continue supportive measures as noted above. CODE status: Discussed CODE status at length including difference between FULL code, DNR-CCA and DNR-CC status. Following discussions about the differences in these status, patient requested full CODE STATUS. This note was generated with [employer] dictation software. It may contain incorrect words, spelling, and punctuation that were not noted in checking the note before signing. HPI Consult Data Date of Consult: 02/07/25 HPI Narrative Reason for Consultation: Sepsis HPI Narrative: The patient is a 64-year-old female, with a history as outlined below, who presented to the emergency department on February 06 with complaints of abdominal pain, nausea, vomiting and diarrhea of approximately 3 days duration. The patient has a known medical history that includes hypertension, hyperlipidemia and obesity. On presentation to the emergency department, the patient was noted to be febrile with a temperature of 99.5 ?F. She was tachycardic, tachypneic and hypotensive with a presenting blood pressure of 83/50 mmHg. Laboratory evaluation was notable for a white blood cell count of 26,000. Chemistry profile was notable for a sodium of 130, potassium of 5.3, BUN of 35 and creatinine of 2.59. Lactate was elevated at 3.4. Urine analysis was positive for leukocyte esterase and 4+ urine bacteria. Blood and urine cultures were obtained. CT abdomen/pelvis demonstrated acute pyelonephritis of the left kidney with a stone in the left renal pelvis measuring 8 mm. The patient subsequently received supplemental IV fluid hydration and was placed on antimicrobial therapy. The patient was admitted to the medical intensive care unit for further management. This morning, the patient was seen in consultation by urology. There are tentative plans for the patient to undergo a cystoscopy procedure later this morning with stent placement. [facility] Medical History Proximal humerus fracture Wears glasses High cholesterol Gastric reflux Smoker Chronic cough Hypertension Home Medications ?Medication ?Instructions ?Recorded ?Last Taken ?Type ondansetron 4 mg disintegrating 4 mg PO TID PRN nausea and 11/03/24 Unknown Rx tablet vomiting #21 tabs cholecalciferol (vitamin D3) 25 25 mcg PO DAILY 11/14/24 11/20/24 History mcg (1,000 unit) capsule (Vitamin D3) coenzyme Q10 100 mg capsule (Co 100 mg PO DAILY 11/14/24 11/20/24 History Q-10) hydrochlorothiazide 25 mg tablet 25 mg PO DAILY 11/14/24 11/20/24 History losartan 100 mg tablet 100 mg PO DAILY 11/14/24 11/20/24 History simvastatin 20 mg tablet 20 mg PO QHS 11/14/24 11/20/24 History zolpidem 12.5 mg tablet,extended 12.5 mg PO QHS PRN PRN insomnia 11/14/24 11/20/24 History release,multiphase albuterol sulfate 90 mcg/actuation 2 puff inhalation Q4H PRN PRN 02/06/25 Unknown History aerosol inhaler wheezing Allergy/AdvReac Type Severity Reaction Status Date / Time No Known Allergies Allergy Verified 02/06/25 19:12 Surgical History History of History of cholecystectomy Social History Smoking Status: Current every day smoker tobacco type: cigarettes ROS ROS Narrative 10 systems were reviewed with pertinent positives as noted in the HPI above. Physical Exam Const alert, oriented x3 and no apparent distress General Appearance: cooperative HEENT normocephalic and head/scalp atraumatic Eyes PERRL, EOMs intact bilaterally and conjunctivae normal Neck supple General: trachea midline Chest inspection of chest normal Resp normal respiratory effort Auscultation: Negative for rales, rhonchi or wheezes Cardio regular rate and regular rhythm GI soft to palpation and non-tender Extremity no clubbing, cyanosis or edema Skin no rashes or lesions noted Neuro CN's II-XII intact bilaterally, moves all extremities and no focal motor deficits Psych Mood & Affect: flat affect Lab / Micro Data 02/07/25 07:47 02/07/25 07:47 Labs: Laboratory Results - last 24 hr 02/06/25 19:40: WBC 26.1 H, RBC 4.53, Hgb 13.7, Hct 41.6, MCV 91.8, MCH 30.2, MCHC 32.9, RDW Std Deviation 47.1 H, RDW Coeff of Tavia 14.0, Plt Count 214, MPV 11.8, Immature Gran % (Auto) 4.300 H, Neut % (Auto) 88.4 H, Lymph % (Auto) 4.1 L, [place] % (Auto) 2.5, Eos % (Auto) 0.0, Baso % (Auto) 0.7, Absolute Neuts (auto) 23.1 H, Absolute Lymphs (auto) 1.06, Nucleated RBC % 0, Differential Comment SCANNED, PT 16.2 H, INR 1.3, APTT 30.6, Sodium 130 L, Potassium 5.3 H, Chloride 89 L, Carbon Dioxide 22.3, Anion Gap 18 H, BUN 35 H, Creatinine 2.59 H, Estim Creat Clear Calc 26.31 L, Est GFR (MDRD) Non-Af 20 L, BUN/Creatinine Ratio 13.6, Glucose 108 H, Lactic Acid 3.4 H*, Calcium 9.2, Total Bilirubin 0.60, AST 39 H, ALT 23, Alkaline Phosphatase 147 H, Total Protein 7.9, Albumin 3.6, Globulin 4.3 H, Albumin/Globulin Ratio 0.9 02/06/25 21:00: Urine Color Yellow, Urine Clarity Cloudy, Urine pH 5.0, Ur Specific [place] 1.015, Urine Protein 500 H, Urine Glucose (UA) Normal, Urine Ketones 5 H, Urine Occult Blood 150 H, Urine Nitrite Negative, Urine Bilirubin 1 H, Urine Urobilinogen Normal, Ur Leukocyte Esterase 500 H, Urine RBC 0 SEEN, Urine WBC >100 SEEN, Ur Squamous Epith Cells 5-10 SEEN, Urine Bacteria 4+, Hyaline Casts 5-10 SEEN, Urine Mucus 0 SEEN 02/06/25 23:46: Lactic Acid < 1.0 Imaging Radiology Impression Abdomen/Pelvis CT 02/06/25 19:26 IMPRESSION: 1. Acute pyelonephritis of the left kidney, with a stone at the left renal pelvis measuring 8 mm. Consider Urology consultation. 2. Additional findings to include hiatal hernia, colonic diverticulosis, and left lung base atelectasis versus tiny pleural effusion. Reading Location: [facility] Chest X-Ray 02/06/25 19:47 IMPRESSION: No acute cardiopulmonary abnormality. Reading Location: [facility] Charges/Coding Visit Charges Inpatient E&M: 21151 Init Hosp L3
--- NOTE | 2025-02-07 07:05 | PCM.PN.HOSP ---
Reason for Visit Reason for Visit: Diagnoses Sepsis, unspecified organism (02/06/25) Obesity, class 1 (02/06/25) Acidosis, unspecified (02/06/25) Tubulo-interstitial nephritis, not specified as acute or chronic (02/06/25) Acute kidney failure, unspecified (02/06/25) Calculus of kidney (02/06/25) Nausea with vomiting, unspecified (02/06/25) Diarrhea, unspecified (02/06/25) Severe sepsis without septic shock (02/06/25) Subjective Subjective Feeling better. Objective Data Objective Data Vital Signs: Vital Signs Temp Pulse Resp BP Pulse Ox O2 Del Method 37.2 C 106 H 23 H 111/86 H 93 Room Air 02/07/25 05:00 02/07/25 06:00 02/07/25 06:00 02/07/25 06:00 02/07/25 06:00 02/07/25 06:00 Oxygen Delivery Method Room Air Weight: 99.7 kg Body Mass Index (BMI) 34.4 Intake & Output: Intake and Output for Last 24 Hours 02/05/25 02/06/25 02/07/25 23:59 23:59 23:59 Intake Total 3050 / 3050 50 / 50 Balance 3050 / 3050 50 / 50 Lab / Micro Data 02/07/25 07:47 02/07/25 07:47 Labs: Laboratory Results - last 24 hr 02/06/25 19:40: WBC 26.1 H, RBC 4.53, Hgb 13.7, Hct 41.6, MCV 91.8, MCH 30.2, MCHC 32.9, RDW Std Deviation 47.1 H, RDW Coeff of Tavia 14.0, Plt Count 214, MPV 11.8, Immature Gran % (Auto) 4.300 H, Neut % (Auto) 88.4 H, Lymph % (Auto) 4.1 L, [place] % (Auto) 2.5, Eos % (Auto) 0.0, Baso % (Auto) 0.7, Absolute Neuts (auto) 23.1 H, Absolute Lymphs (auto) 1.06, Nucleated RBC % 0, Differential Comment SCANNED, PT 16.2 H, INR 1.3, APTT 30.6, Sodium 130 L, Potassium 5.3 H, Chloride 89 L, Carbon Dioxide 22.3, Anion Gap 18 H, BUN 35 H, Creatinine 2.59 H, Estim Creat Clear Calc 26.31 L, Est GFR (MDRD) Non-Af 20 L, BUN/Creatinine Ratio 13.6, Glucose 108 H, Lactic Acid 3.4 H*, Calcium 9.2, Total Bilirubin 0.60, AST 39 H, ALT 23, Alkaline Phosphatase 147 H, Total Protein 7.9, Albumin 3.6, Globulin 4.3 H, Albumin/Globulin Ratio 0.9 02/06/25 21:00: Urine Color Yellow, Urine Clarity Cloudy, Urine pH 5.0, Ur Specific [place] 1.015, Urine Protein 500 H, Urine Glucose (UA) Normal, Urine Ketones 5 H, Urine Occult Blood 150 H, Urine Nitrite Negative, Urine Bilirubin 1 H, Urine Urobilinogen Normal, Ur Leukocyte Esterase 500 H, Urine RBC 0 SEEN, Urine WBC >100 SEEN, Ur Squamous Epith Cells 5-10 SEEN, Urine Bacteria 4+, Hyaline Casts 5-10 SEEN, Urine Mucus 0 SEEN 02/06/25 23:46: Lactic Acid < 1.0 Radiography Diagnostic Testing: Radiology Impression Abdomen/Pelvis CT 02/06/25 19:26 IMPRESSION: 1. Acute pyelonephritis of the left kidney, with a stone at the left renal pelvis measuring 8 mm. Consider Urology consultation. 2. Additional findings to include hiatal hernia, colonic diverticulosis, and left lung base atelectasis versus tiny pleural effusion. Reading Location: [facility] Chest X-Ray 02/06/25 19:47 IMPRESSION: No acute cardiopulmonary abnormality. Reading Location: [id number] Physical Exam Const alert and no apparent distress HEENT head/scalp atraumatic and moist oral mucous membranes Resp normal respiratory effort, no retractions, no use of accessory muscles and clear to auscultation bilaterally Cardio regular rate, regular rhythm, S1 normal heart sound and S2 normal heart sound GI normal to inspection, nondistended, normoactive bowel sounds, soft to palpation, non-tender and non-distended Neuro Sensorium / Orientation: awake, alert, oriented to person and oriented to place Assessment & Plan Assessment/Plan (1) Sepsis: PLAN: POA see H+P for criteria 2/2 pyelonephritis f/u cultures. abx w pip/tazo CCM consulted (2) Pyelonephritis: PLAN: CT showed Left-side pyelonephritis with a stone at the left renal pelvis. abx with pip/tazo UCx showing GNR. consulted (3) GRISELDA (acute kidney injury): PLAN: improving with IVF No need for BUS GIRL at this time. (4) Calculus of renal pelvis: PLAN: consulted. Pt underwent cystoscopy 02/07 with left stent placement. PLAN: Plan Chronic conditions Obesity class II: Complicates care and recovery Hypertension: HCTZ and losartan held given GRISELDA VTE prophylaxis with SCDs Charges/Coding Visit Charges Inpatient E&M: 32958 Subs Hosp L3
--- NOTE | 2025-02-07 07:19 | PCM.CONS.U ---
Assessment & Plan Assessment/Plan (1) Sepsis: (2) Obesity (BMI 30.0-34.9): (3) Nausea vomiting and diarrhea: (4) Lactic acidosis: (5) GRISELDA (acute kidney injury): (6) Severe sepsis: (7) Pyelonephritis: (8) Calculus of renal pelvis: PLAN: Plan for cystoscopy and left stent placement HPI Consult Data Date of Consult: 02/07/25 HPI Narrative Reason for Consultation: Obstructing stone and left pyelonephritis HPI Narrative: ADRIANNA SHAH, is a 64 F who presents to the hospital with sepsis elevated white blood count fevers and chills CT scan was done and demonstrated pyelonephritis of the left kidney also has a stone in the left renal pelvis she is clinically stable in the ICU. N.p.o. plan to take her surgery later today for cystoscopy left stent placement to alleviate the blockage and help with clearing the infection. [facility] Medical History Proximal humerus fracture Wears glasses High cholesterol Gastric reflux Smoker Chronic cough Hypertension Home Medications ?Medication ?Instructions ?Recorded ?Last Taken ?Type ondansetron 4 mg disintegrating 4 mg PO TID PRN nausea and 11/03/24 Unknown Rx tablet vomiting #21 tabs cholecalciferol (vitamin D3) 25 25 mcg PO DAILY 11/14/24 11/20/24 History mcg (1,000 unit) capsule (Vitamin D3) coenzyme Q10 100 mg capsule (Co 100 mg PO DAILY 11/14/24 11/20/24 History Q-10) hydrochlorothiazide 25 mg tablet 25 mg PO DAILY 11/14/24 11/20/24 History losartan 100 mg tablet 100 mg PO DAILY 11/14/24 11/20/24 History simvastatin 20 mg tablet 20 mg PO QHS 11/14/24 11/20/24 History zolpidem 12.5 mg tablet,extended 12.5 mg PO QHS PRN PRN insomnia 11/14/24 11/20/24 History release,multiphase albuterol sulfate 90 mcg/actuation 2 puff inhalation Q4H PRN PRN 02/06/25 Unknown History aerosol inhaler wheezing Allergy/AdvReac Type Severity Reaction Status Date / Time No Known Allergies Allergy Verified 02/06/25 19:12 Surgical History History of History of cholecystectomy Social History Smoking Status: Current every day smoker tobacco type: cigarettes ROS Constitutional Constitutional: Denies chills, fever(s) or malaise Eyes Eyes: Denies blurry vision or change in vision ENT HEENT: Reports none Cardiovascular Cardiovascular: Denies chest pain or palpitations Respiratory/Chest Respiratory/Chest: Denies cough or shortness of breath with exertion Gastrointestinal Gastrointestinal: Denies abdominal pain, constipation or diarrhea Musculoskeletal Musculoskeletal: Denies back pain, joint stiffness or joint swelling Integumentary Integumentary: Denies dry skin, jaundice, lesions or rash Neurologic Neurologic: Denies confusion, syncope or weakness Psychiatric Psychiatric: Reports none; Denies anxiety or depression Endocrine Endocrinology: Denies excessive sweating, fatigue or flushing Hematologic/Lymphatic Hematologic/Lymphatic: Denies anemia, easy bleeding or easy bruising Physical Exam Const alert and oriented x3 General Appearance: cooperative HEENT normocephalic and head/scalp atraumatic Eyes PERRL and EOMs intact bilaterally Neck supple, no JVD and no carotid bruits Resp normal respiratory effort, normal air movement and clear to auscultation bilaterally Cardio regular rate and no murmurs GI normal to inspection, nondistended, normoactive bowel sounds and soft to palpation Extremity normal capillary refill General Extremity: no tenderness to palpation of joints or extremities; Negative for edema Skin no rashes or lesions noted and no wounds General Skin Exam: no breakdown Neuro CN's II-XII intact bilaterally Psych affect normal Appearance: appropriate Medical Records Data Attestation: I reviewed the patient's medical records Lab / Micro Data 02/06/25 19:40 02/06/25 19:40 Labs: Laboratory Results - last 24 hr 02/06/25 19:40: WBC 26.1 H, RBC 4.53, Hgb 13.7, Hct 41.6, MCV 91.8, MCH 30.2, MCHC 32.9, RDW Std Deviation 47.1 H, RDW Coeff of Tavia 14.0, Plt Count 214, MPV 11.8, Immature Gran % (Auto) 4.300 H, Neut % (Auto) 88.4 H, Lymph % (Auto) 4.1 L, [place] % (Auto) 2.5, Eos % (Auto) 0.0, Baso % (Auto) 0.7, Absolute Neuts (auto) 23.1 H, Absolute Lymphs (auto) 1.06, Nucleated RBC % 0, Differential Comment SCANNED, PT 16.2 H, INR 1.3, APTT 30.6, Sodium 130 L, Potassium 5.3 H, Chloride 89 L, Carbon Dioxide 22.3, Anion Gap 18 H, BUN 35 H, Creatinine 2.59 H, Estim Creat Clear Calc 26.31 L, Est GFR (MDRD) Non-Af 20 L, BUN/Creatinine Ratio 13.6, Glucose 108 H, Lactic Acid 3.4 H*, Calcium 9.2, Total Bilirubin 0.60, AST 39 H, ALT 23, Alkaline Phosphatase 147 H, Total Protein 7.9, Albumin 3.6, Globulin 4.3 H, Albumin/Globulin Ratio 0.9 02/06/25 21:00: Urine Color Yellow, Urine Clarity Cloudy, Urine pH 5.0, Ur Specific [place] 1.015, Urine Protein 500 H, Urine Glucose (UA) Normal, Urine Ketones 5 H, Urine Occult Blood 150 H, Urine Nitrite Negative, Urine Bilirubin 1 H, Urine Urobilinogen Normal, Ur Leukocyte Esterase 500 H, Urine RBC 0 SEEN, Urine WBC >100 SEEN, Ur Squamous Epith Cells 5-10 SEEN, Urine Bacteria 4+, Hyaline Casts 5-10 SEEN, Urine Mucus 0 SEEN 02/06/25 23:46: Lactic Acid < 1.0 Imaging Radiology Impression Abdomen/Pelvis CT 02/06/25 19:26 IMPRESSION: 1. Acute pyelonephritis of the left kidney, with a stone at the left renal pelvis measuring 8 mm. Consider Urology consultation. 2. Additional findings to include hiatal hernia, colonic diverticulosis, and left lung base atelectasis versus tiny pleural effusion. Reading Location: [id number] Chest X-Ray 02/06/25 19:47 IMPRESSION: No acute cardiopulmonary abnormality. Reading Location: [facility]
[2025-02-07 08:03] LABS: Absolute Lymphocyte Count 0.62 X10^3/uL (0.83-4.51); Absolute Neutrophil Count 12.8 X10^3/uL (2.0-7.7); Basophil# 0.03 X10^3/uL; Basophil% 0.2 % (0-1); Eosinophil# 0.02 X10^3/uL; Eosinophils% 0.1 % (0-5); Hematocrit 33.5 % (37-47); Hemoglobin 11.2 g/dL (12.0-15.0); Lymphocyte # 0.62 X10^3/ul (0.83-4.51); Lymphocyte % 4.4 % (19-41); Mean Corp Hgb Conc 33.4 g/dL (32-36); Mean Corpuscular Hgb 30.2 pg (27.0-32.0); Mean Corpuscular Volume 90.3 fL (81-99); Mean Platelet Vol. 12.3 fl (6.2-12.0); Monocyte# 0.45 X10^3/uL; Monocyte% 3.2 % (0-10); NRBC Flagged by Analyzer 0 % (0-5); Neutrophil # 12.76 X10^3/uL (2.7-7.7); Neutrophil % 90.5 % (47-70); Platelet Count 158 K/mm3 (150-450); RBC Distribution Width CV 14.2 % (11.6-14.6); RBC Distribution Width SD 46.5 fl (35.1-43.9); Red Blood Count 3.71 M/mm3 (4.2-5.4); White Blood Count 14.1 K/mm3 (4.4-11.0)
[2025-02-07 09:07] LABS: ALB/GLOB Ratio 1.1 RATIO (0.9-2.4); AST(SGOT) 23 U/L (<=31); Alanine Aminotransfer ALT/SGPT 20 U/L (<=34); Albumin, Serum 3.1 g/dL (3.4-4.8); Alkaline Phosphatase 190 U/L (35-104); Anion Gap 12 (5-15); BUN 31 mg/dL (4-19); BUN/Creat Ratio 18.8 RATIO (10-20); Calcium,Total 8.2 mg/dL (7.6-11.0); Carbon Dioxide 21.8 mmol/L (21.0-32.0); Chloride 99 mmol/L (98-108); Creatinine, Serum 1.65 mg/dL (0.70-1.20); EST Glomerular Filtration Rate 35 (>60); Estimated Creatinine Clearance 42.33 ml/min (50-250); Globulin 2.9 g/dL (2.2-4.2); Glucose 96 mg/dL (70-99); Potassium 3.9 mmol/L (3.3-5.1); Protein, Total 5.9 g/dL (5.9-8.4); Sodium Level 133 mmol/L (133-145); Total Bilirubin 0.41 mg/dL (0.00-1.30)
[2025-02-07] MEDS: Pantoprazole Sodium 40 MG in 0.9% Normal Saline (100mL MB+) 100 ML 330 MG IV (09:45)
--- NOTE | 2025-02-07 10:29 | CASEMGMT ---
STAR MATSON Assessment: Face to Face with pt for initial transition planning/care coordination assessment. STAR MATSON introduced self and role at [facility], pt voices understanding and consents to assessment. Pt is A&O x4 and answers all questions appropriately at this time. Pt sitting up in chair with and brother at bedside. Pt agreeable to assessment with family present. Care providers, pharmacy, and demographics verified/updated. Admitting Dx: Sepsis, Left Pyelonephritis Strata Score: 1 PCP:Tita Specialists:sharon Flores. Tutu, Urology Preferred Pharmacy: [facility] Retail Insurance: [employer] Prescription Benefit: yes LNOK: Leon Barney, Living Arrangements: Pt lives with , brother and father in law in a two story home with a ramp to enter. Pt reports normally she is I in ADL/IADLs. Pt denies concerns at home. Transportation: Pt drives self and denies concerns with transportation. DME: Access to a FWW, Shower bench, and grab bars. HHC/SNF: Reports hx with [facility] HH for PT Pt states no concerns with going home at time of dc. Pt states no further concerns/needs. CM to follow. Advised pt to ask CM if any further questions/concerns/needs arise, voices understanding. Pt Goal: Home Plan: Home Grecia FORREST RN, CM
--- NOTE | 2025-02-07 11:17 | PCM.PRE.AN2 ---
ASA Classification* ASA Classification ASA Classification: 3 and E Assessment & Plan Anesthesia* Anesthesia Assessment Anesthesia Assessment: Discussed sedation and/or anesthesia options, risks, benefits, and alternatives with patient/parents/legal guardian/POA. Questions invited. The patient/parents/legal guardian/POA seems to understand and agrees to proceed with anesthesia plan. Reviewed the physical assessment, medical history, allergy history and patient home medications list prior to surgery/procedure/anesthetic and documented any changes. Performed airway and anesthesia risk assessments. Anesthesia Type Anesthesia Type: MAC History Source History Obtained from:: Patient and Chart Anesthesia Focused Assessment* Temperature: 98.9 F Pulse Rate: 107 Blood Pressure: 104/37 Respiratory Rate: 26 Pulse Ox: 93 Oxygen Delivery Method: Room Air Airway Assessment Mouth opens: >3 cm Mallampati Score: IV Teeth Condition: Missing (Patient has several missing teeth. Rest are tight.) Neck Range of motion (ROM): Limited ROM Labs Anesthesia Preop lab: CBC WBC 14.1 K/mm3 (4.4-11.0) H 02/07/25 07:47 02/07/25 RBC 3.71 M/mm3 (4.2-5.4) L 02/07/25 07:47 02/07/25 Hgb 11.2 g/dL (12.0-15.0) L 02/07/25 07:47 02/07/25 Hct 33.5 % (37-47) L 02/07/25 07:47 02/07/25 Plt Count 158 K/mm3 (150-450) 02/07/25 07:47 02/07/25 CHEMISTRY Potassium 3.9 mmol/L (3.3-5.1) 02/07/25 07:47 02/07/25 Sodium 133 mmol/L (133-145) 02/07/25 07:47 02/07/25 Magnesium 1.7 mg/dL (1.5-2.2) 11/15/24 16:21 11/15/24 BUN 31 mg/dL (4-19) H 02/07/25 07:47 02/07/25 Creatinine 1.65 mg/dL (0.70-1.20) H 02/07/25 07:47 02/07/25 Glucose 96 mg/dL (70-99) 02/07/25 07:47 02/07/25 POC Glucose 106 mg/dL (74-106) 11/21/24 10:39 11/21/24 COAG PT 16.2 SECONDS (11.7-14.9) H 02/06/25 19:40 02/06/25 Pre-Assessment Diagnosis/Proposed Procedure Planned Operative Procedure(s): Cystoscopy, left ureteral stent placement. Anesthesia History Anesthesia History - retail marketing specialist: Anesthesia History - retail marketing specialist Hx Hospitalization No 11/14/24 12:38 Any Problems With Anesthesia No 11/14/24 12:38 Cholinesterase deficiency No 11/14/24 12:38 You/Your Family Experience No 11/14/24 12:38 fever (hyperthermia) with Relationship Recent Exposure to Contagious No 11/21/24 10:44 Disease Does patient have nerve No 11/14/24 12:38 stimulator Patient instructed to have device shut off --Does patient have Pacemaker or ICD? When Was Last Pacemaker Check QUESTION #4 FULL TEXT: You/Your Family Experience fever (hyperthermia) with Anesthesia Last Oral Intake Last Oral intake: Last Oral Intake NPO since Meds taken in AM with sips of water? Meds patient instructed to take am of surgery Any additional information?: Yes NPO since: 00:00 PONV PONV - retail marketing specialist: PONV - retail marketing specialist Female HX of Motion Sickness HX of N/V After Surgery Non-Smoker Duration of Surgery greater than 60 minutes Number of Risk Factors PONV Score Height & Weight Height & Weight: Anesthesia: Height & Weight Height 5 ft 7 in 02/07/25 09:24 Weight: 99.7 kg 02/07/25 09:24 Body Mass Index (BMI) 34.4 02/07/25 05:32 Respiratory Assessment Respiratory Assessment - retail marketing specialist: Respiratory Tract Infection Hx - retail marketing specialist Hx Respiratory Tract Infection No 11/14/24 12:38 STOP Sleep Apnea STOP Sleep Apnea - retail marketing specialist: STOP Sleep Apnea - retail marketing specialist Hx Hypertension Yes 02/06/25 23:05 Hx Sleep Apnea No 02/06/25 23:05 CPAP BIPAP Do you snore loudly (louder No 02/06/25 23:05 than talking or can be heard Do you often feel tired/ No 02/06/25 23:05 fatigued/ sleepy during daytime? Has anyone observed you stop No 02/06/25 23:05 breathing during sleep? STOP Results Negative 02/06/25 23:05 QUESTION #5 FULL TEXT : Do you snore loudly (louder than talking or can be heard through closed doors)? 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 Use History - retail marketing specialist: Tobacco Use History - retail marketing specialist Tobacco Use Smoking Status Current every day smoker 02/06/25 23:05 Hx Tobacco Use Yes 02/06/25 23:05 Years Smoking Packs Smoked per Day Smoking Cessation Date was within the last 15 years Hx Smoking Cessation Date Hx Smoking Cessation Counseling Hematologic Medial History Hematologic Hx - retail marketing specialist: Hematologic Medical Hx - extractions technologist Hx of Blood Transfusion Yes 02/06/25 23:05 Hx of Transfusion in last 3 No 02/06/25 23:05 Months Date of Last Transfusion (if within last 3 months) Ever experience any problems No 02/06/25 23:05 with transfusion(s)? Specify any problems Hx of Preganancy in last 3 No 02/06/25 23:05 Months Nurse Filling Out Transfusion [email or web address] 02/06/25 23:05 & Questions: Date: 02/06/25 02/06/25 23:05 Time: 23:23 02/06/25 23:05 Patient unable to answer at this time (ie. confused, unrespo /Reproduction History /Reproductive History - retail marketing specialist: /Reproductive Hx- retail marketing specialist Hx Now Gestational Age (in weeks): EDC: Hx Hx Para Hx Section SAB No 11/14/24 12:38 Active Medications Active Medications: Current Medications Generic Name Dose Route Start Last Admin Trade Name Freq PRN Reason Stop Dose Admin Acetaminophen 650 mg 02/06/25 23:04 Acetaminophen 650 Mg Suppository RC Q6H PRN PRN Pain 1-5/10 or Fever Albuterol Sulfate 2.5 mg 02/06/25 23:04 Albuterol 2.5 Mg/3 Ml Vial.Neb. INHALATION Q4H PRN PRN wheezing Heparin Sodium (Porcine) 5,000 unit 02/07/25 08:10 Heparin Injection (Vial) 5,000 Unit/Ml Vial SC Q8 ALICE Piperacillin Sod/Tazobactam 50 mls @ 12.5 mls/hr 02/06/25 23:04 02/07/25 09:50 Sod 3.375 gm/ Sodium Chloride IV Infused Q8 ALICE Infusion Pantoprazole Sodium 40 mg/ 100 mls @ 330 mls/hr 02/07/25 10:00 02/07/25 10:19 Sodium Chloride IV Infused Q24 ALICE Infusion Sodium Chloride 250 mls @ 15 mls/hr 02/06/25 23:05 IV .[id number] PRN Saline Flush Sodium Chloride 250 mls @ 15 mls/hr 02/06/25 23:05 IV .[id number] PRN Additional IVPB Infusion Lactated Ringer's 1,000 mls @ 15 mls/hr 02/07/25 11:15 IV .Q48H ALICE Morphine Sulfate 2 mg 02/06/25 23:04 Morphine 2 Mg/Ml Syringe IV Q4H PRN PRN Pain Score 6-10 Ondansetron HCl 4 mg 02/06/25 23:04 Ondansetron 4 Mg/2 Ml Vial IV Q4H PRN PRN NAUSEA/VOMITING Promethazine HCl 12.5 mg 02/06/25 23:04 Promethazine 25 Mg/Ml Syringe IM Q6H PRN PRN Breakthrough Nausea/Vomiting Sodium Chloride 10 - 40 ml 02/06/25 23:05 0.9% Saline Lock 10 Ml Syringe IV UD PRN SALINE FLUSH PFSH Medical History Proximal humerus fracture Wears glasses High cholesterol Gastric reflux Smoker Chronic cough Hypertension Home Medications ?Medication ?Instructions ?Recorded ?Last Taken ?Type ondansetron 4 mg disintegrating 4 mg PO TID PRN nausea and 11/03/24 Unknown Rx tablet vomiting #21 tabs cholecalciferol (vitamin D3) 25 25 mcg PO DAILY 11/14/24 11/20/24 History mcg (1,000 unit) capsule (Vitamin D3) coenzyme Q10 100 mg capsule (Co 100 mg PO DAILY 11/14/24 11/20/24 History Q-10) hydrochlorothiazide 25 mg tablet 25 mg PO DAILY 11/14/24 11/20/24 History losartan 100 mg tablet 100 mg PO DAILY 11/14/24 11/20/24 History simvastatin 20 mg tablet 20 mg PO QHS 11/14/24 11/20/24 History zolpidem 12.5 mg tablet,extended 12.5 mg PO QHS PRN PRN insomnia 11/14/24 11/20/24 History release,multiphase albuterol sulfate 90 mcg/actuation 2 puff inhalation Q4H PRN PRN 02/06/25 Unknown History aerosol inhaler wheezing Allergy/AdvReac Type Severity Reaction Status Date / Time No Known Allergies Allergy Verified 02/06/25 19:12 Surgical History History of History of cholecystectomy Social History Smoking Status: Current every day smoker tobacco type: cigarettes Review of Systems (Anesthesia) ROS Narrative System reviewed and no additional complaints, except as documented.
--- NOTE | 2025-02-07 12:22 | PCM.OPRPT ---
Operative Report (Standard) Operative Information Date of Procedure: 02/07/25 Pre-Operative Diagnosis: Infected left kidney stone Post-Operative Diagnosis: the same Surgery/Procedure Performed: Cystoscopy and left stent placement hedge fund principal: No Type of Anesthesia: General RN Documented Start/Stop Times: Operation Date: 02/07/25 12:00 Case Time Into Pre-Op 02/07/25 11:03 Out of Pre-Op 02/07/25 12:00 Anesthesia Start 02/07/25 12:04 Into Room 02/07/25 12:04 Procedure Start Time: 12:04 Procedure Stop Time: 12:23 Select all DRAINS/GRAFTS/IMPLANTS that apply: None Estimated Blood Loss: 0 Specimen collected: No Description of surgery: Patient underwent cystoscopy and stent placement and she was taken back to the operating room after smooth duction anesthesia and was placed in dorsolithotomy position went in the bladder with a cystoscope density tumors or stone within the bladder cannulated the left ureter orifice with a Glidewire advanced up into the kidney could see the stone in the left kidney and then over the wire placed a stent of the 6 Yoruba by 26 cm stent with the stent was in good position I pulled the wire the stent coiled in the kidney bladder good position patient has had anesthetic reversed and she can continue with IV antibiotics she will to follow-up in the office after hospital discharge to get her set up for shockwave lithotripsy later on she will need to follow-up in my office after discharge from the hospital. Surgical Findings: Stent placed Complications Complications: No Admit VTE Documentation VTE Present on Admission: No VTE Mechan Device Prophylaxis: SCD's VTE Pharm Prophylaxis ordered?: No
--- NOTE | 2025-02-07 12:24 | DCINST_ITS ---
Discharge Instructions Diet Discharge Diet: No restrictions DC O2, CPAP, BIPAP needs Home O2 Discharge instructions: No Dressing / Incision Discharge Activity: Return to Normal Activity and May Not Drive (while taking narcotic pain medications.) Dressing / Incision Call your doctor if you observe: Fever of 101 or Higher Follow Up Care Please Follow Up With: Chad Cam MD When: Call [phone] for an appointment Test Results: Test results from this visit will be discussed in further detail at your follow- up appointment, if applicable. Discharge Plan Admission Admit Date/Time: 02/06/25 22:00 Attending Provider: Praveen Wayne Primary Care Provider: Cooper Rivers Consulting Providers: Chad Cam; Nixon Leavitt; Cruzito Cook; Ruddy Pang; Toan Messer; Aakash Moe; Jericho Hgih; Todd Aquino; Jes Coley; Doc Weiss; Terry Garcia; Luis Landers; Shanna Moore; Sommer Tyler; Michelle Kumar; Miles Pappas; Andrea Billingsley; Ethan Turner; Dony Woo; Byron Mckenna; Sukhi Nguyen; Kristian Eng; Rudy Patel; Leon Velazquez; Aakash Rincon Discharge Orders/Prescriptions Prescriptions: No Action simvastatin 20 mg tablet 20 mg PO QHS hydrochlorothiazide 25 mg tablet 25 mg PO DAILY losartan 100 mg tablet 100 mg PO DAILY coenzyme Q10 [Co Q-10] 100 mg capsule 100 mg PO DAILY cholecalciferol (vitamin D3) [Vitamin D3] 25 mcg (1,000 unit) capsule 25 mcg PO DAILY zolpidem 12.5 mg tablet,ext release multiphase 12.5 mg PO QHS PRN PRN (Reason: insomnia) ondansetron 4 mg tablet,disintegrating 4 mg PO TID PRN (Reason: nausea and vomiting) Qty: 21 0RF albuterol sulfate 90 mcg/actuation HFA aerosol inhaler 2 puff inhalation Q4H PRN PRN (Reason: wheezing) Referrals / Follow Up: Cooper Rivers MD [Primary Care Provider] -
--- NOTE | 2025-02-07 12:42 | PCM.POST.ANE ---
Anesthesia: Postop Eval I Current Vital Signs Temperature: 102 F Pulse Rate: 110 Blood Pressure: 88/68 (MAP 75) Respiratory Rate: 20 Pulse Ox: 94 Oxygen Delivery Method: Room Air Assessment Airway patent: Yes Spontaneous unlabored respirations: Yes Mental status: Awake and Calm nausea: No Vomiting: No Anesthesia Complication: No Fluid Hydration Crystalloid volume administer (ml): 400 Total IV fluid infused: 400 Progress Note Anesthesia document: Postop Eval 1 completed: Yes
[2025-02-07] MEDS: Heparin Injection (Vial) 5,000 UNIT/ML VIAL 5000 UNIT SC ×2 (14:05→22:12)
[2025-02-07] MEDS: 0.9% Normal Saline (250mL Bag) 250 ML 15 ML IV (22:07)
--- NOTE | 2025-02-07 22:22 | POSTOPAN2_ITS ---
Anesthesia Postop Eval I Sum Postop Eval Completion status Anesthesia document: Postop Eval 1 completed: Yes Anesthesia Postop Eval I Summary Anesthesia Postop Eval I Summary: Anesthesia Postop Eval I: Assessment Summary Airway patent Yes 02/07/25 12:43 [employer]PRES[employer].[email or web address] Spontaneous unlabored Yes 02/07/25 12:43 [employer].[email or web address] respirations Mental status Awake,Calm 02/07/25 12:43 [employer]PRES[employer]AT[employer].MATEUSOBLester nausea No 02/07/25 12:43 [employer]PRES[employer]ATIVES.MATEUSOBLester Vomiting No 02/07/25 12:43 [employer] REPRESENTATIVES.MATEUSOBLester Anesthesia Postop Eval I: Fluid Summary Crystalloid volume administer 400 02/07/25 12:43 [employer] REPRESENTATIVES.MATEUSOBY (ml) Colloids volume administered ( ml) Blood Product volume administered (ml) Total IV fluid infused 400 02/07/25 12:43 [employer].MAKAYLA Anesthesia Postop Eval I: Summary Notes Anesthesia Complication No 02/07/25 12:43 [employer].[email or web address] Anesthesia Complication Comment: Post-operative progress note Anesthesia: Postop Eval II Evaluation Mental status: Calm Pain Level: 1 nausea: No Vomiting: No Complications Anesthesia Complication: No
--- NOTE | 2025-02-07 22:22 | PCM.POSTANE2 ---
Anesthesia Postop Eval I Sum Postop Eval Completion status Anesthesia document: Postop Eval 1 completed: Yes Anesthesia Postop Eval I Summary Anesthesia Postop Eval I Summary: Anesthesia Postop Eval I: Assessment Summary Airway patent Yes 02/07/25 12:43 RETAIL WIRELESS SALES REPRESENTATIVE.[email or web address] Spontaneous unlabored Yes 02/07/25 12:43 RETAIL WIRELESS SALES REPRESENTATIVE.[email or web address] respirations Mental status Awake,Calm 02/07/25 12:43 RETAIL WIRELESS SALES REPRESENTATIVE.[email or web address] nausea No 02/07/25 12:43 RETAIL WIRELESS SALES REPRESENTATIVE.[email or web address] Vomiting No 02/07/25 12:43 RETAIL WIRELESS SALES REPRESENTATIVE.[email or web address] Anesthesia Postop Eval I: Fluid Summary Crystalloid volume administer 400 02/07/25 12:43 RETAIL WIRELESS SALES REPRESENTATIVE.[email or web address] (ml) Colloids volume administered ( ml) Blood Product volume administered (ml) Total IV fluid infused 400 02/07/25 12:43 RETAIL WIRELESS SALES REPRESENTATIVE.[email or web address] Anesthesia Postop Eval I: Summary Notes Anesthesia Complication No 02/07/25 12:43 RETAIL WIRELESS SALES REPRESENTATIVE.[email or web address] Anesthesia Complication Comment: Post-operative progress note Anesthesia: Postop Eval II Evaluation Mental status: Calm Pain Level: 1 nausea: No Vomiting: No Complications Anesthesia Complication: No
[2025-02-08] VITALS (7 sets, daily range): BP systolic 121–149; BP diastolic 73–82; PULSE 93–95; RESP 16–19; TEMP 37.1–37.6; O2SAT 94–95; BMI 34.4
[2025-02-08] MEDS: Piperacil/Tazobactam 3.375 GM in 0.9% Normal Saline (50mL MB+) 50 ML IV ×3 (05:38→22:00)
[2025-02-08] MEDS: Heparin Injection (Vial) 5,000 UNIT/ML VIAL 5000 UNIT SC ×3 (05:38→22:00)
[2025-02-08 05:41] LABS: Absolute Lymphocyte Count 1.21 X10^3/uL (0.83-4.51); Absolute Neutrophil Count 9.1 X10^3/uL (2.0-7.7); Basophil# 0.05 X10^3/uL; Basophil% 0.4 % (0-1); Eosinophil# 0.03 X10^3/uL; Eosinophils% 0.3 % (0-5); Hematocrit 30.6 % (37-47); Lymphocyte # 1.21 X10^3/ul (0.83-4.51); Lymphocyte % 10.6 % (19-41); Mean Corp Hgb Conc 32.7 g/dL (32-36); Mean Corpuscular Hgb 29.9 pg (27.0-32.0); Mean Corpuscular Volume 91.6 fL (81-99); Mean Platelet Vol. 12.5 fl (6.2-12.0); Monocyte# 0.98 X10^3/uL; Monocyte% 8.6 % (0-10); NRBC Flagged by Analyzer 0 % (0-5); Neutrophil # 9.06 X10^3/uL (2.7-7.7); Neutrophil % 79.1 % (47-70); POSITIVE MORPHOLOGY YES; Platelet Count 146 K/mm3 (150-450); RBC Distribution Width CV 14.5 % (11.6-14.6); RBC Distribution Width SD 48.7 fl (35.1-43.9); Red Blood Count 3.34 M/mm3 (4.2-5.4); White Blood Count 11.5 K/mm3 (4.4-11.0)
[2025-02-08 05:47] LABS: Differential Indicated SCAN CRITERIA MET
[2025-02-08 06:26] LABS: Differential Comment SCANNED
[2025-02-08 06:27] LABS: Platelet Estimate SLT DEC (ADEQ); Red Cell Morphology NORM C+C NORMAL (NORM C&C)
[2025-02-08 06:43] LABS: Anion Gap 12 (5-15); BUN 24 mg/dL (4-19); BUN/Creat Ratio 20.7 RATIO (10-20); Calcium,Total 8.4 mg/dL (7.6-11.0); Carbon Dioxide 22.2 mmol/L (21.0-32.0); Chloride 99 mmol/L (98-108); Creatinine, Serum 1.15 mg/dL (0.70-1.20); EST Glomerular Filtration Rate 54 (>60); Estimated Creatinine Clearance 60.74 ml/min (50-250); Glucose 93 mg/dL (70-99); Potassium 3.9 mmol/L (3.3-5.1); Sodium Level 133 mmol/L (133-145)
--- NOTE | 2025-02-08 07:34 | PCM.PN.HOSP ---
Reason for Visit Reason for Visit: Diagnoses Sepsis, unspecified organism (02/06/25) Obesity, class 1 (02/06/25) Acidosis, unspecified (02/06/25) Tubulo-interstitial nephritis, not specified as acute or chronic (02/06/25) Acute kidney failure, unspecified (02/06/25) Calculus of kidney (02/06/25) Nausea with vomiting, unspecified (02/06/25) Diarrhea, unspecified (02/06/25) Severe sepsis without septic shock (02/06/25) Subjective Subjective Just had diarrhea and had to be cleaned up. Objective Data Objective Data Vital Signs: Vital Signs Temp Pulse Resp BP Pulse Ox O2 Del Method O2 Flow Rate 37.6 C H 94 16 121/73 H 95 Nasal Cannula 2 02/08/25 03:39 02/08/25 03:39 02/08/25 03:39 02/08/25 03:39 02/08/25 03:39 02/08/25 03:39 02/08/25 03:39 Oxygen Flow Rate (L/min) 2 Oxygen Delivery Method Nasal Cannula Weight: 99.7 kg Body Mass Index (BMI) 34.4 Intake & Output: Intake and Output for Last 24 Hours 02/06/25 02/07/25 02/08/25 23:59 23:59 23:59 Intake Total 3050 / 3050 250 / 250 50 / 50 Output Total 400 / 400 Balance 3050 / 3050 -150 / -150 50 / 50 Lab / Micro Data 02/08/25 05:11 02/08/25 05:11 Labs: Laboratory Results - last 24 hr 02/07/25 07:47: WBC 14.1 H, RBC 3.71 L, Hgb 11.2 L, Hct 33.5 L, MCV 90.3, MCH 30.2, MCHC 33.4, RDW Std Deviation 46.5 H, RDW Coeff of Tavia 14.2, Plt Count 158, MPV 12.3 H, Immature Gran % (Auto) 1.600 H, Neut % (Auto) 90.5 H, Lymph % (Auto) 4.4 L, [place] % (Auto) 3.2, Eos % (Auto) 0.1, Baso % (Auto) 0.2, Absolute Neuts (auto) 12.8 H, Absolute Lymphs (auto) 0.62 L, Nucleated RBC % 0, Sodium 133, Potassium 3.9, Chloride 99, Carbon Dioxide 21.8, Anion Gap 12, BUN 31 H, Creatinine 1.65 H, Estim Creat Clear Calc 42.33 L, Est GFR (MDRD) Non-Af 35 L, BUN/Creatinine Ratio 18.8, Glucose 96, Calcium 8.2, Total Bilirubin 0.41, AST 23, ALT 20, Alkaline Phosphatase 190 H, Total Protein 5.9, Albumin 3.1 L, Globulin 2.9, Albumin/Globulin Ratio 1.1 02/08/25 05:11: WBC 11.5 H, RBC 3.34 L, Hgb 10.0 L, Hct 30.6 L, MCV 91.6, MCH 29.9, MCHC 32.7, RDW Std Deviation 48.7 H, RDW Coeff of Tavia 14.5, Plt Count 146 L, MPV 12.5 H, Immature Gran % (Auto) 1.000 H, Neut % (Auto) 79.1 H, Lymph % (Auto) 10.6 L, [place] % (Auto) 8.6, Eos % (Auto) 0.3, Baso % (Auto) 0.4, Absolute Neuts (auto) 9.1 H, Absolute Lymphs (auto) 1.21, Nucleated RBC % 0, Differential Comment SCANNED, Platelet Estimate SLT DEC, RBC Morphology NORM C+C, Sodium 133, Potassium 3.9, Chloride 99, Carbon Dioxide 22.2, Anion Gap 12, BUN 24 H, Creatinine 1.15, Estim Creat Clear Calc 60.74, Est GFR (MDRD) Non-Af 54 L, BUN/Creatinine Ratio 20.7 H, Glucose 93, Calcium 8.4 Micro: Microbiology 02/06/25 21:00 Urine, Clean Catch Urine Culture - Preliminary Gram negative alexandre Physical Exam Const alert Constitutional Narrative: tearful when I arrived. non-toxic. HEENT head/scalp atraumatic Resp normal respiratory effort, no retractions, no use of accessory muscles and clear to auscultation bilaterally Cardio regular rate, regular rhythm, S1 normal heart sound and S2 normal heart sound GI normal to inspection, nondistended, normoactive bowel sounds, soft to palpation, non-tender and non-distended Extremity normal to inspection and no clubbing, cyanosis or edema Neuro moves all extremities Sensorium / Orientation: awake and alert Assessment & Plan Assessment/Plan (1) Sepsis: PLAN: POA see H+P for criteria 2/2 pyelonephritis f/u cultures. abx w pip/tazo CCM consulted (2) Pyelonephritis: PLAN: CT showed Left-side pyelonephritis with a stone at the left renal pelvis. abx with pip/tazo UCx showing Klebsiella. DC pip/tazo, start CTX. 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 (4) Calculus of renal pelvis: PLAN: consulted. Pt underwent cystoscopy 02/07 with left stent placement. (5) C. difficile colitis: PLAN: No recent antibiotics other than her hospitalization here. Will start vancomycin while she is here. Would qualify this as Mild disease, so, start vancomycin 125 QID. PLAN: Plan Chronic conditions Obesity class II: Complicates care and recovery Hypertension: HCTZ and losartan held given GRISELDA VTE prophylaxis with SCDs Disposition: Patient still with voluminous diarrhea. Would continue to monitor here and start her on vancomycin and observe. I want to get the patient to the point where diarrhea is much improved and if everything remains stable then she can be discharged. Hopefully in 1-2 more days. Charges/Coding Visit Charges Inpatient E&M: 14923 [facility] Hosp L3
--- NOTE | 2025-02-08 09:31 | PN.CC_ITS ---
Assessment & Plan Assessment/Plan (1) Sepsis: PLAN: Plan RECOMMENDATIONS: 1. Continue antimicrobials as ordered. 2. Continue to wean supplemental oxygen to maintain saturations at or above 90%. 3. Subcutaneous heparin for DVT prophylaxis. 4. Encourage incentive spirometer use and mobilize patient as tolerated. 5. Will sign off from a critical care perspective. Please call with any additional questions. IMPRESSIONS: 1. Sepsis The patient presented to the hospital with sepsis due to acute pyelonephritis with acute sepsis related organ dysfunction as evidenced by lactic acidemia and acute kidney injury. The patient did receive supplemental IV fluid hydration, but has not required vasopressor support. The patient was evaluated by urology and underwent cystoscopy with stent placement. She has remained clinically stable. Plan to continue antimicrobials, pending finalized culture results. 2. Acute kidney injury Resolved. Most likely prerenal in etiology in the setting of sepsis and gastrointestinal losses from diarrhea. The patient did receive supplemental IV fluid hydration, with normalization in her creatinine. 3. History of hypertension/hyperlipidemia/obesity Complicates care, management, recovery and prognosis. Continue supportive measures as noted above. CODE status: Discussed CODE status at length including difference between FULL code, DNR-CCA and DNR-CC status. Following discussions about the differences in these status, patient requested full CODE STATUS. This note was generated with [employer] dictation software. It may contain incorrect words, spelling, and punctuation that were not noted in checking the note before signing. Subjective Subjective The patient was seen and examined at the bedside this morning. Events from the last 24 hours have been reviewed. The patient currently has a low-grade fever but remains otherwise hemodynamically stable on 2 L/min via nasal cannula. White blood cell count is improved at 11,000. Hemoglobin is stable at 10.0 g/dL. Platelet count is dropped to 146,000. Creatinine has normalized. The patient underwent successful cystoscopy and stent placement yesterday by urology. Objective Data Objective Data The patient's most recent lab work, culture data and imaging studies have all been personally reviewed. Urine culture is currently demonstrating growth of Klebsiella pneumonia. Vital Signs: Vital Signs Temp Pulse Resp BP Pulse Ox O2 Del Method O2 Flow Rate 99.7 F H 95 16 121/73 H 95 Nasal Cannula 2 02/08/25 03:39 02/08/25 07:00 02/08/25 03:39 02/08/25 03:39 02/08/25 03:39 02/08/25 03:39 02/08/25 03:39 Oxygen Flow Rate (L/min) 2 Oxygen Delivery Method Nasal Cannula Weight: 219 lb 12.814 oz Body Mass Index (BMI) 34.4 Intake & Output: Intake and Output for Last 24 Hours 02/06/25 02/07/25 02/08/25 23:59 23:59 23:59 Intake Total 3050 / 3050 250 / 250 50 / 50 Output Total 400 / 400 Balance 3050 / 3050 -150 / -150 50 / 50 Lab / Micro Data Attestation: I reviewed the patient's lab results. 02/08/25 05:11 02/08/25 05:11 Labs: Laboratory Results - last 24 hr 02/08/25 05:11: WBC 11.5 H, RBC 3.34 L, Hgb 10.0 L, Hct 30.6 L, MCV 91.6, MCH 29.9, MCHC 32.7, RDW Std Deviation 48.7 H, RDW Coeff of Tavia 14.5, Plt Count 146 L, MPV 12.5 H, Immature Gran % (Auto) 1.000 H, Neut % (Auto) 79.1 H, Lymph % (Auto) 10.6 L, [place] % (Auto) 8.6, Eos % (Auto) 0.3, Baso % (Auto) 0.4, Absolute Neuts (auto) 9.1 H, Absolute Lymphs (auto) 1.21, Nucleated RBC % 0, Differential Comment SCANNED, Platelet Estimate SLT DEC, RBC Morphology NORM C+C, Sodium 133, Potassium 3.9, Chloride 99, Carbon Dioxide 22.2, Anion Gap 12, BUN 24 H, Creatinine 1.15, Estim Creat Clear Calc 60.74, Est GFR (MDRD) Non-Af 54 L, B UN/Creatinine Ratio 20.7 H, Glucose 93, Calcium 8.4 Micro: Microbiology 02/06/25 21:00 Urine, Clean Catch Urine Culture - Final Klebsiella pneumoniae sp pneum 02/08/25 05:24 Stool Stool Lactoferrin - Final 02/08/25 05:24 Stool Clostridioides difficile (PCR) - Final Physical Exam Const alert, oriented x3 and no apparent distress General Appearance: cooperative HEENT normocephalic, head/scalp atraumatic and moist oral mucous membranes Eyes PERRL, EOMs intact bilaterally and conjunctivae normal Neck supple General: trachea midline Chest inspection of chest normal Resp normal respiratory effort Auscultation: Negative for rales, rhonchi or wheezes Cardio regular rate and regular rhythm GI soft to palpation and non-tender Extremity no clubbing, cyanosis or edema Skin no rashes or lesions noted Neuro CN's II-XII intact bilaterally, moves all extremities and no focal motor deficits Psych cooperative and affect normal Charges/Coding Visit Charges Inpatient E&M: 46782 Subs Hosp L2
[2025-02-08] MEDS: Pantoprazole Sodium 40 MG Tablet PO (10:02)
[2025-02-08] MEDS: Vancomycin 125 MG/5 ML Susp PO.SYRINGE PO ×2 (11:24→20:51)
[2025-02-08] MEDS: Ceftriaxone 1 GM/50 ML BAG IV (13:50)
[2025-02-09] MEDS: Vancomycin 125 MG/5 ML Susp PO.SYRINGE PO ×3 (00:01→11:37)
[2025-02-09 04:00] VITALS: BP 129/72; PULSE 90; RESP 16; TEMP 36.7; O2SAT 94
[2025-02-09] MEDS: Heparin Injection (Vial) 5,000 UNIT/ML VIAL 5000 UNIT SC (05:57)
[2025-02-09] MEDS: Piperacil/Tazobactam 3.375 GM in 0.9% Normal Saline (50mL MB+) 50 ML IV (05:57)
[2025-02-09 06:00] VITALS: BMI 34.4
--- NOTE | 2025-02-09 07:26 | PCM.PN.HOSP ---
Reason for Visit Reason for Visit: Diagnoses Enterocolitis due to Clostridium difficile, not specified as recurrent (02/06/25) Sepsis, unspecified organism (02/06/25) Obesity, class 1 (02/06/25) Acidosis, unspecified (02/06/25) Tubulo-interstitial nephritis, not specified as acute or chronic (02/06/25) Acute kidney failure, unspecified (02/06/25) Calculus of kidney (02/06/25) Nausea with vomiting, unspecified (02/06/25) Diarrhea, unspecified (02/06/25) Severe sepsis without septic shock (02/06/25) Subjective Subjective Feeling well. Still diarrhea but the frequency is reduced. Would like to go home. Objective Data Objective Data Vital Signs: Vital Signs Temp Pulse Resp BP Pulse Ox O2 Del Method O2 Flow Rate 36.7 C 90 16 129/72 H 94 Nasal Cannula 2 02/09/25 04:00 02/09/25 04:00 02/09/25 04:00 02/09/25 04:00 02/09/25 04:00 02/09/25 04:00 02/09/25 04:00 Oxygen Flow Rate (L/min) 2 Oxygen Delivery Method Nasal Cannula Weight: 99.7 kg Body Mass Index (BMI) 34.4 Intake & Output: Intake and Output for Last 24 Hours 02/07/25 02/08/25 02/09/25 23:59 23:59 23:59 Intake Total 250 / 250 1283 / 1283 50 / 50 Output Total 400 / 400 Balance -150 / -150 1283 / 1283 50 / 50 Lab / Micro Data 02/09/25 08:09 02/08/25 05:11 Micro: Microbiology 02/08/25 05:24 Stool Stool Lactoferrin - Final 02/08/25 05:24 Stool Enteric Bacteriology - Final 02/08/25 05:24 Stool C. difficile GDH Antigen & Toxins - Final 02/08/25 05:24 Stool Clostridioides difficile (PCR) - Final 02/06/25 21:00 Urine, Clean Catch Urine Culture - Final Klebsiella pneumoniae sp pneum Physical Exam Const alert and no apparent distress Constitutional Narrative: Up in bed. Eating breakfast. Nontoxic. HEENT head/scalp atraumatic Resp normal respiratory effort and no retractions Assessment & Plan Assessment/Plan (1) Sepsis: PLAN: POA see H+P for criteria 2/2 pyelonephritis and C. difficile (2) Pyelonephritis: PLAN: CT showed Left-side pyelonephritis with a stone at the left renal pelvis. abx with pip/tazo UCx showing Klebsiella. DC pip/tazo, started CTX. Will discharge with ciprofloxacin complete a 10-day course of antibiotics. (3) GRISELDA (acute kidney injury): PLAN: resolved with IVF No need for CREDIT CARD INTERVIEWER at this time. (4) Calculus of renal pelvis: PLAN: consulted. Pt underwent cystoscopy 02/07 with left stent placement. Follow-up with urology as outpatient. (5) C. difficile colitis: PLAN: No recent antibiotics other than her hospitalization here. Will start vancomycin while she is here. Would qualify this as Mild disease, so, started vancomycin 125 QID. Will continue vancomycin prefer an extended course this patient is going to be on antibiotics for her pyelonephritis. Would continue the antibiotics 10 days beyond the ciprofloxacin being discontinued. PLAN: Plan Chronic conditions Obesity class II: Complicates care and recovery Hypertension: HCTZ and losartan held given GRISELDA VTE prophylaxis with SCDs Disposition: Patient feeling much better overall. Patient will be discharged home today. Patient advised to monitor if she is having diarrhea that seems to be more protracted at home, is beyond 2 days were very voluminous that she should seek attention because it could possibly be a recurrence of the Cdiff.
--- NOTE | 2025-02-09 07:42 | PCM.CONS.B ---
Consult Date of Consult: 02/09/25 Reason for Consult s/p stent for infection needs to follow up with me outpatient to treat stone pt. told to make appt. with me.
[2025-02-09 08:28] VITALS: PULSE 90
[2025-02-09 08:45] LABS: Absolute Lymphocyte Count 1.23 X10^3/uL (0.83-4.51); Absolute Neutrophil Count 7.6 X10^3/uL (2.0-7.7); Basophil# 0.05 X10^3/uL; Basophil% 0.5 % (0-1); Eosinophil# 0.13 X10^3/uL; Eosinophils% 1.3 % (0-5); Hematocrit 31.6 % (37-47); Hemoglobin 10.5 g/dL (12.0-15.0); Lymphocyte # 1.23 X10^3/ul (0.83-4.51); Lymphocyte % 11.9 % (19-41); Mean Corp Hgb Conc 33.2 g/dL (32-36); Mean Corpuscular Volume 90.3 fL (81-99); Mean Platelet Vol. 12.9 fl (6.2-12.0); Monocyte# 1.31 X10^3/uL; Monocyte% 12.6 % (0-10); NRBC Flagged by Analyzer 0 % (0-5); Neutrophil # 7.57 X10^3/uL (2.7-7.7); Platelet Count 146 K/mm3 (150-450); RBC Distribution Width CV 14.5 % (11.6-14.6); RBC Distribution Width SD 47.5 fl (35.1-43.9); White Blood Count 10.4 K/mm3 (4.4-11.0)
[2025-02-09 09:19] VITALS: BP 124/60; PULSE 91; RESP 18; TEMP 36.7; O2SAT 95
--- NOTE | 2025-02-09 09:20 | PCM.DC.SUM ---
Providers Date of Admission: 02/06/25 Primary Care Physician: Dr. Cooper Rivers MD Consultations 02/06/25 23:04 Consult: Commercial Lines Account Manager / Pulmonary Medicine Routine Consulting Provider: Intensivists/Pulmonary Med Reason for Consult: Sepsis, Left Pyelonephritis with ~8mm stone and GRISELDA. EMERGENT Consult: No Notified: Yes Date Notified: 02/06/25 Time Notified: 01:42 Method of Notification: Text Consult: Urology Routine Consulting Provider: Chad Cam Reason for Consult: Sepsis, Left Pyelonephritis and GRISELDA. EMERGENT Consult: Yes MD Notified: Yes Date Notified: 02/06/25 Time Notified: 22:08 Method of Notification: ED Physician Initiated Reason For Visit: SEPSIS, LEFT PYELONEPHRITIS WITH Diagnosis Discharge Diagnosis (1) Sepsis: Status: Acute Code(s): A41.9 - Sepsis, unspecified organism Plan: POA see H+P for criteria 2/2 pyelonephritis and C. difficile (2) Pyelonephritis: Status: Acute Code(s): N12 - Tubulo-interstitial nephritis, not specified as acute or chronic Plan: CT showed Left-side pyelonephritis with a stone at the left renal pelvis. abx with pip/tazo UCx showing Klebsiella. DC pip/tazo, started CTX. Will discharge with ciprofloxacin complete a 10-day course of antibiotics. (3) GRISELDA (acute kidney injury): Status: Acute Code(s): N17.9 - Acute kidney failure, unspecified Plan: resolved with IVF No need for PROGRAMMER ENGINEERING AND SCIENTIFIC at this time. (4) Calculus of renal pelvis: Status: Acute Code(s): N20.0 - Calculus of kidney Plan: consulted. Pt underwent cystoscopy 02/07 with left stent placement. Follow-up with urology as outpatient. (5) C. difficile colitis: Status: Acute Code(s): A04.72 - Enterocolitis due to Clostridium difficile, not specified as recurrent Plan: No recent antibiotics other than her hospitalization here. Will start vancomycin while she is here. Would qualify this as Mild disease, so, started vancomycin 125 QID. Will continue vancomycin prefer an extended course this patient is going to be on antibiotics for her pyelonephritis. Would continue the antibiotics 10 days beyond the ciprofloxacin being discontinued. Plan Chronic conditions Obesity class II: Complicates care and recovery Hypertension: HCTZ and losartan held given GRISELDA VTE prophylaxis with SCDs Disposition: Patient feeling much better overall. Patient will be discharged home today. Patient advised to monitor if she is having diarrhea that seems to be more protracted at home, is beyond 2 days were very voluminous that she should seek attention because it could possibly be a recurrence of the Cdiff. Medications at Discharge Home Medications ondansetron 4 mg disintegrating tablet 4 mg PO TID PRN nausea and vomiting #21 tabs 11/03/24 cholecalciferol (vitamin D3) 25 mcg (1,000 unit) capsule (Vitamin D3) 25 mcg PO DAILY 11/14/24 coenzyme Q10 100 mg capsule (Co Q-10) 100 mg PO DAILY 11/14/24 losartan 100 mg tablet 100 mg PO DAILY 11/14/24 simvastatin 20 mg tablet 20 mg PO QHS 11/14/24 zolpidem 12.5 mg tablet,extended release,multiphase 12.5 mg PO QHS PRN PRN insomnia 11/14/24 albuterol sulfate 90 mcg/actuation aerosol inhaler 2 puff inhalation Q4H PRN PRN wheezing 02/06/25 ciprofloxacin HCl 500 mg tablet 500 mg PO BID #12 tabs 02/09/25 vancomycin 25 mg/mL oral solution (Firvanq) 125 mg (5 mL) PO Q6 16 days #320 mL 02/09/25 Hospital Course Operations None Procedures None Summary of Care Provided Minutes Spent on Discharge: 32 Hospital Course: This is a 64-year-old female presents with sepsis secondary to pyelonephritis. There is noted on CT. She did have a stone in the pelvis that was nonobstructing. Patient was seen by urology as there is concern that that could be infected and patient underwent cystoscopy, stone extraction and stent placement. Patient also subsequently developed diarrhea. Patient denies being on antibiotics prior to this hospitalization but it did come back positive for C. difficile. Patient was having very voluminous diarrhea and patient was started on vancomycin while she was here. Her diarrhea has since improved. Patient will be discharged to complete 10-day course of antibiotics for pyelonephritis and then she will continue the vancomycin but that will be extended another 10 days beyond the discontinuation of the ciprofloxacin. Patient advised to notify physician if she started having recurrent diarrhea as that could be a sign of recurrent C diff. Weight / BMI Weight Weight: 99.7 kg Body Mass Index (BMI) 34.4 ABG / Lab / Microbiology Data 02/09/25 08:09 02/08/25 05:11 Laboratory: Laboratory Results - last 24 hr 02/09/25 08:09: WBC 10.4, RBC 3.50 L, Hgb 10.5 L, Hct 31.6 L, MCV 90.3, MCH 30.0, MCHC 33.2, RDW Std Deviation 47.5 H, RDW Coeff of Tavia 14.5, Plt Count 146 L, MPV 12.9 H, Immature Gran % (Auto) 0.700, Neut % (Auto) 73.0 H, Lymph % (Auto) 11.9 L, Burt % (Auto) 12.6 H, Eos % (Auto) 1.3, Baso % (Auto) 0.5, Absolute Neuts (auto) 7.6, Absolute Lymphs (auto) 1.23, Nucleated RBC % 0 Microbiology: Microbiology 02/08/25 05:24 Stool Stool Lactoferrin - Final 02/08/25 05:24 Stool Enteric Bacteriology - Final 02/08/25 05:24 Stool C. difficile GDH Antigen & Toxins - Final 02/08/25 05:24 Stool Clostridioides difficile (PCR) - Final 02/06/25 21:00 Urine, Clean Catch Urine Culture - Final Klebsiella pneumoniae sp pneum D/C Instructions Discharge Diet: No restrictions Call your doctor if you observe: Fever of 101 or Higher DC O2, CPAP, BIPAP Needs Home O2 Discharge instructions: No Please Follow Up With: Chad Cam MD When: Call [phone] for an appointment Meaningful Use Info Meaningful Use Meaningful Use Diagnoses (Choose all that apply): None applicable Ischemic Stroke Statin Dosing Therapy Reference: STATIN DOSE THERAPY REFERENCE: * Patients > 75 years receive moderate or high dose statin therapy. * Patients 75 years or YOUNGER should receive HIGH intensity statin dose unless contraindicated. You will be required to document reason for non-treatment if statin daily dose does not meet guidelines. HIGH DOSE STATIN THERAPY DAILY Atorvastatin > than or = to 40 mg Rosuvastatin > than or = to 20 mg Amlodipine + Atorvastatin > than or = to 2.5/40 mg Ezetimibe + Simvastatin 10/80 mg Simvastatin 80mg Discharge Plan Admission Admit Date/Time: 02/06/25 22:00 Primary Reason for Your Visit: pyelonephritis. C diff. Attending Provider: Praveen Wayne Primary Care Provider: Cooper Rivers Consulting Providers: Aakash Rincon; Chad Cam Instructions Additional Instructions / Restrictions: Take antibiotics as instructed. If you are having recurrent diarrhea in the future, it is possible it could be a recurrence of C. difficile. If it is going beyond a couple days or it is very copious, notify your physician or return to the emergency room for evaluation. Discharge Orders/Prescriptions Prescriptions: New vancomycin [Firvanq] 25 mg/mL Recon Soln 125 mg PO Q6 16 Days Qty: 320 0RF ciprofloxacin HCl 500 mg tablet 500 mg PO BID Qty: 12 0RF Continued simvastatin 20 mg tablet 20 mg PO QHS losartan 100 mg tablet 100 mg PO DAILY coenzyme Q10 [Co Q-10] 100 mg capsule 100 mg PO DAILY cholecalciferol (vitamin D3) [Vitamin D3] 25 mcg (1,000 unit) capsule 25 mcg PO DAILY zolpidem 12.5 mg tablet,ext release multiphase 12.5 mg PO QHS PRN PRN (Reason: insomnia) ondansetron 4 mg tablet,disintegrating 4 mg PO TID PRN (Reason: nausea and vomiting) Qty: 21 0RF albuterol sulfate 90 mcg/actuation HFA aerosol inhaler 2 puff inhalation Q4H PRN PRN (Reason: wheezing) Discontinued hydrochlorothiazide 25 mg tablet 25 mg PO DAILY Referrals / Follow Up: Chad Cam MD [Med Staff - Active Staff] - Within 1 Month Cooper Rivers MD [Primary Care Provider] - Within 2 Weeks Disposition Disposition (needs filled in before D/C Order can be placed): Home, Self Care Charges/Coding Visit Charges Inpatient E&M: 81196 Disch Hosp >30min
[2025-02-09] MEDS: Ceftriaxone 1 GM/50 ML BAG IV (09:22)
[2025-02-09 09:24] LABS: Anion Gap 12 (5-15); BUN 17 mg/dL (4-19); BUN/Creat Ratio 18.5 RATIO (10-20); Calcium,Total 8.8 mg/dL (7.6-11.0); Carbon Dioxide 23.7 mmol/L (21.0-32.0); Chloride 97 mmol/L (98-108); Creatinine, Serum 0.89 mg/dL (0.70-1.20); EST Glomerular Filtration Rate 73 (>60); Estimated Creatinine Clearance 78.48 ml/min (50-250); Glucose 116 mg/dL (70-99); Potassium 3.7 mmol/L (3.3-5.1); Sodium Level 132 mmol/L (133-145)
--- NOTE | 2025-02-09 10:18 | CASEMGMT ---
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 This has been e-scribed to [facility] retail pharmacy. Cost is $10. requests [id number] and asks for the pharmacy call his cell for payment: [phone]. Call placed to Taylor in the pharmacy and she was made aware. Addendum entered by Danny Zhu 02/09/25 10:50: Pt and made aware of garber. They asked if pt could get Firvanq @ [facility], as pt only has to pay $40 max for brand-name medications. Call to [facility]. They do not have Firvanq in stock. Pt and made aware. They state, if Dr Wayne is okay with pt taking capsules instead of liquid, then they will go that route, as it will be cheaper. They also state, if Dr Wayne prefers the Firvanq liquid, then they are willing to pay $390. Message sent to Dr Wayne via Backline notifying him of above. Awaiting response. Original Note: STAR MATSON NOTE: Discharge order is in. Firvanq liquid Rx has been sent to [facility] retail pharmacy. Call to Carmen in the pharmacy for garber check. Co-pay is $390.01. Theresa OJEDA RN, CM
== END 2025-02-09 12:53 | disposition home or self-care (01) | DRG 854 ==
LOC: ED 22:00 → ICU 22:08 → MS3 02-07 17:41
PROVIDERS: Urology; Admitting Provider Internal Medicine; Emergency Provider Emergency Medicine; PCP Family Medicine; Referring Provider Emergency Medicine
PROC: 0T778DZ Dilation of Left Ureter with Intraluminal Device, Via Natural or Artificial Opening Endoscopic (ICD-10-PCS; CPT 52332; principal; 2025-02-07 11:50)
DX: A41.59 Other Gram-negative sepsis (principal); A04.72 Enterocolitis due to Clostridium difficile, not specified as recurrent; N17.9 Acute kidney failure, unspecified; N10 Acute pyelonephritis; I10 Essential (primary) hypertension; E66.812 Obesity, class 2; E87.5 Hyperkalemia; E78.5 Hyperlipidemia, unspecified; R65.20 Severe sepsis without septic shock; F17.210 Nicotine dependence, cigarettes, uncomplicated; K21.9 Gastro-esophageal reflux disease without esophagitis; M19.90 Unspecified osteoarthritis, unspecified site; I95.9 Hypotension, unspecified; A41.4 Sepsis due to anaerobes; N20.0 Calculus of kidney; Z90.49 Acquired absence of other specified parts of digestive tract; Z68.32 Body mass index [BMI] 32.0-32.9, adult; Z79.899 Other long term (current) drug therapy; Z87.81 Personal history of (healed) traumatic fracture; Z96.611 Presence of right artificial shoulder joint
CPT/HCPCS: 36415; 71045; 74177; 76000; 80048; 80053; 81001; 83605; 83630; 85025; 85610; 85730; 87040; 87077; 87086; 87088; 87186; 87493; 87506; 94668; 94760; 99285; P9612; Q9967; A4216; C2617; J0696; J2405

== ENCOUNTER 2025-02-10 10:28 | Inpatient (IN) | payer BC, SELFPAY ==
[2025-02-10] VITALS (24 sets, daily range): BP systolic 126–158; BP diastolic 62–101; PULSE 77–107; RESP 12–27; TEMP 36.6–37.3; O2SAT 92–98; BMI 33.1; BMI 30.8
--- NOTE | 2025-02-10 10:32 | CT_ITS ---
PROCEDURE: STROKE BRAIN/HEAD WITHOUT CONT 02/10/2025 REASON FOR EXAM: NEURO DEFICIT, ACUTE, STROKE SUSPECTED TECHNIQUE: STROKE BRAIN/HEAD WITHOUT CONT Coronal and Sagittal reconstruction series were provided. One or more dose reduction techniques were used (e.g., Automated exposure control, adjustment of the mA and/or kV according to patient size, use of iterative reconstruction technique. RADIATION DOSE SUMMARY: DLP: 813 mGycm COMPARISON: None FINDINGS: There is no acute infarct, intracranial hemorrhage, or mass effect. There is no hydrocephalus or significant midline shift. There is mild chronic microvascular ischemic changes. No acute, depressed calvarial fractures. No large scalp hematomas. CT/STROKE Brain/Head without Cont IMPRESSION: No acute, large territorial infarction. Dr. Brewer was notified by Cheryl Major at 10:45 am EST on 02/10/2025. Reading Location: [id number]
--- NOTE | 2025-02-10 10:32 | RAD_ITS ---
PROCEDURE: CHEST 1 VIEW 02/10/2025 REASON FOR EXAM: NEURO DEFICIT, ACUTE, STROKE SUSPECTED TECHNIQUE: Frontal view of the chest. COMPARISON: Prior chest radiograph dated February 06, 2025. FINDINGS: Hardware: EKG electrodes are seen Heart: Heart size upper limits of normal Lungs: Lungs are clear. Bones: Prior right reverse shoulder replacement. Other: RAD/Chest 1 View IMPRESSION: No Acute Findings. Reading Location: [id number]
--- NOTE | 2025-02-10 10:32 | CT_ITS ---
PROCEDURE: STROKE CTA HEAD AND NECK W/CON 02/10/2025 REASON FOR EXAM: NEURO DEFICIT, ACUTE, STROKE SUSPECTED TECHNIQUE: STROKE CTA HEAD AND NECK W/CON Multiplanar Sagittal and Coronal images were obtained. CONTRAST: 100 mL of Isovue 370 One or more dose reduction techniques were used (e.g., Automated exposure control, adjustment of the mA and/or kV according to patient size, use of iterative reconstruction technique). RADIATION DOSE SUMMARY: DLP: 797 mGycm COMPARISON: None FINDINGS: The aortic arch demonstrates a type I configuration. The ostia of the great vessels are patent. There is conventional branching. The right CCA is patent. Mild atherosclerosis of the right carotid bulb with minimal stenosis. The cervical right ICA is patent. The right MCA and right MEGAN appear patent. There is no large vessel occlusion. The left CCA is patent. Extensive atherosclerosis of the left carotid bulb with moderate to severe stenosis at the proximal left ICA. The cervical left ICA is patent. The left MCA and left EMGAN appear patent. There is no large vessel occlusion. The right vertebral artery arises from the right subclavian artery. The left vertebral artery arises from the left subclavian artery. Both vertebral arteries are patent. The left vertebral artery is dominant. Both vertebral arteries join to form the patent basilar artery. Both posterior cerebral arteries arise from the tip of the basilar. origin of left JUDGE. Both proximal JUDGE segments are patent. There is no large vessel occlusion. There is no enhancing intracranial mass. [place] cervical lymph nodes are identified. The thyroid gland is heterogeneous. The lung apices demonstrate no pneumothorax. No destructive osseous abnormalities identified. CT/STROKE CTA Head AND Neck W/Con IMPRESSION: No acute large vessel occlusion. No intracranial high-grade stenosis. Extensive atherosclerosis of the left carotid bulb with moderate to severe sten osis at the proximal left ICA. Reading Location: [id number]
--- NOTE | 2025-02-10 10:33 | EDS_ITS ---
HPI History of Present Illness Chief Complaint: Stroke Alert Informant: patient and spouse/S.O. Onset/Context/Timing Onset: Today Context: Sudden Onset Timing: Continuous Quality and Location: Positive for Slurred Speech Onset: 10 PM last night Worsened by: Nothing Relieved by: Nothing Associated Symptoms Associated Symptoms: Negative for Headache, Nausea, Vomiting or Chest Pain Narrative Narrative: Patient presents as a stroke alert. Patient woke up with slurred speech today. Patient went to bed at 10 PM last evening. Patient denies any paresthesias or weakness anywhere. Patient states she feels like her speech is slurred. Patient denies any headaches. Patient denies any nausea or vomiting. Patient denies any chest pain. Patient states nothing makes her symptoms better and nothing makes them worse. Patient was recently admitted to the hospital for sepsis. [facility] Medical History Proximal humerus fracture Wears glasses High cholesterol Gastric reflux Smoker Chronic cough Hypertension Home Medications ?Medication ?Instructions ?Recorded ?Last Taken ?Type ondansetron 4 mg disintegrating 4 mg PO TID PRN nausea and 11/03/24 Unknown Rx tablet vomiting #21 tabs cholecalciferol (vitamin D3) 25 25 mcg PO DAILY 11/20/24 History mcg (1,000 unit) capsule (Vitamin D3) coenzyme Q10 100 mg capsule (Co 100 mg PO DAILY 11/20/24 History Q-10) losartan 100 mg tablet 100 mg PO DAILY 11/14/2402/08 History simvastatin 20 mg tablet 20 mg PO QHS 11/14/24 History zolpidem 12.5 mg tablet,extended 12.5 mg PO QHS PRN in somnia 11/14/24 11/20/24 History release,multiphase albuterol sulfate 90 mcg/actuation 2 puff inhalation Q 4H PRN wheezing 02/06/25 Unknown History aerosol inhaler ciprofloxacin HCl 500 mg tablet 500 mg PO BID #12 tabs 02/09/25 Unknown Rx vancomycin 125 mg capsule 125 mg PO Q6H 16 days #64 ca ps 02/09/25 Unknown Rx Allergy/AdvReac Type Severity Reaction Status Date / Time No Known Allergies Allergy Verified 02/10/25 10:29 Surgical History History of History of cholecystectomy Social History Smoking Status: Current every day smoker tobacco type: cigarettes ROS ROS ED Constitutional Constitutional ED: Denies chills or fever(s) Eyes Eyes: Denies blurry vision or change in vision ENT ENT ED: Denies rhinorrhea or sore throat Cardiovascular Cardiovascular: Denies chest pain Respiratory/Chest Respiratory/Chest: Denies cough or dyspnea Gastrointestinal Gastrointestinal: Denies nausea or vomiting Musculoskeletal Musculoskeletal: Denies back pain or neck pain Neurologic Neurologic: Denies headache(s) or weakness Allergic/Immunologic Allergic/Immunologic ED: Denies urticaria EXAM Physical Exam Const Vital Signs: 02/10/25 10:30 02/10/25 10:32 02/10/25 10:34 Temperature 98 F 98 F Temperature Source Temporal Temporal Pulse Rate 94 Respiratory Rate 12 Blood Pressure 143/70 H Blood Pressure Mean 94 Pulse Ox 95 Oxygen Delivery Method Room Air Room Air 02/10/25 10:58 02/10/25 11:01 02/10/25 11:30 Temperature 98.5 F Temperature Source Oral Pulse Rate 100 92 91 Respiratory Rate 16 18 20 H Blood Pressure 137/65 H 139/71 H 126/79 H Blood Pressure Mean 89 93 94 Pulse Ox 97 98 93 Oxygen Delivery Method 02/10/25 11:30 02/10/25 12:00 Temperature Temperature Source Pulse Rate 91 91 Respiratory Rate 20 H 20 H Blood Pressure 126/79 H 152/77 H Blood Pressure Mean 94 102 Pulse Ox 93 96 Oxygen Delivery Method Room Air MDM MDM MDM Narrative Medical decision making narrative: Differential diagnosis includes stroke, electrolyte abnormality, urinary tract infection, dehydration, medication side effect, pneumonia, bronchitis, cardiac dysrhythmia, cardiac ischemia, coagulopathy, pain and anxiety. EKG will be obtained to assess for cardiac dysrhythmia and cardiac ischemia. CT scan of the brain will be obtained to assess for stroke and intracranial bleeding. CTA of the head and neck will be obtained to assess for large vessel occlusion, aneurysm, and carotid stenosis. Chest x-ray will be obtained to assess for pneumonia and bronchitis. CBC to be obtained to assess for leukocytosis and anemia. Basic metabolic profile will be obtained to assess for electrolyte abnormality and renal function. PT with INR and PTT will be obtained to assess for coagulopathy. High-sensitivity troponin will be obtained to assess for cardiac ischemia. 2-hour repeat high-sensitivity troponin will be obtained to assess for ongoing cardiac ischemia. History & Record Review Discussion w/independent historian: Patient and Significant other Additional record(s) reviewed:: Prior inpatient record, Prior ED visit and Prior labs Lab Data Attestation: I reviewed the patient's lab results. Lab results narrative: CBC was reviewed. There is a mild leukocytosis of 11.2. There is a mild anemia with a hemoglobin of 9.7 and hematocrit of 29.4. Platelets were normal. Basic metabolic profile was reviewed and was essentially within normal limits. PT with INR and PTT were reviewed and were within normal limits. Initial high- sensitivity troponin was reviewed and was normal at 9. Labs: Laboratory Results - last 24 hr 02/10/25 02/10/25 10:30 10:55 WBC 11.2 H RBC 3.23 L Hgb 9.7 L Hct 29.4 L MCV 91.0 MCH 30.0 MCHC 33.0 RDW Std Deviation 48.7 H RDW Coeff of Tavia 14.5 Plt Count 159 MPV 12.2 H Immature Gran % (Auto) 1.100 H Neut % (Auto) 69.5 Lymph % (Auto) 12.2 L [place] % (Auto) 15.4 H Eos % (Auto) 1.3 Baso % (Auto) 0.5 Absolute Neuts (auto) 7.8 H Absolute Lymphs (auto) 1.37 Nucleated RBC % 0 Atypical Lymphocytes 1+ Platelet Estimate A PT 14.8 INR 1.1 APTT 25.3 Sodium 131 L Potassium 3.4 Chloride 95 L Carbon Dioxide 26.8 Anion Gap 10 BUN 10 Creatinine 0.81 Estim Creat Clear Calc 84.62 Est GFR (MDRD) Non-Af 82 BUN/Creatinine Ratio 12.6 Glucose 111 H Calcium 8.4 Troponin T High Sens 9 POC Glucose 106 Radiography Diagnostic Testing: Clinical Impression(s) from Imaging Studies Brain CT 02/10/25 10:32 IMPRESSION: No acute, large territorial infarction. Dr. Brewer was notified by Cheryl Major at 10:45 am EST on 02/10/2025. Reading Location: [facility] Chest X-Ray 02/10/25 10:32 IMPRESSION: No Acute Findings. Reading Location: [id number] Head/Neck CTA 02/10/25 10:32 IMPRESSION: No acute large vessel occlusion. No intracranial high-grade stenosis. Extensive atherosclerosis of the left carotid bulb with moderate to severe stenosis at the proximal left ICA. Reading Location: [id number] CT scan of the brain was obtained. There is no acute intracranial abnormality. This was interpreted by the radiologist and was also independently reviewed by myself. Portable 1 view chest x-ray was obtained. On my independent interpretation, lung escobar are clear. There is normal cardiac silhouette. Bony thorax is normal. There is no acute process noted. Radiologist also interpreted the x- ray and agrees. CTA of the head and neck was obtained. There is no acute large vessel occlusion. There is no intracranial high-grade stenosis. There is atherosclerosis of the left carotid bulb. Moderate to severe stenosis of the proximal left ICA. This was interpreted by the radiologist and was also independently reviewed by myself. EKG Initial EKG: Attestation: I personally reviewed and interpreted this EKG as follows: Interpretation: Sinus Rhythm (90) and No Acute Injury Pattern Comments: EKG was obtained. On my independent interpretation, it showed a normal sinus rhythm with a rate of 90. LA interval, QRS interval, and QTc intervals were all normal. [place] was normal. There are no acute ST or T wave changes. Prior EKG tracings: available for review Prior: Unchanged (11/04/2024) Management Discussion w/another healthcare provider: Hospitalist, Personal Lines Appraiser and Radiologist Treatment and Re-Evaluation Narrative: Patient was evaluated by stroke neurology. Stroke neurologist, Dr. Tamayo, felt the patient could be admitted for further stroke workup here. She felt the patient was encephalopathic and was not a candidate for tenecteplase. Patient is currently on Cipro for urinary tract infection and pyelonephritis. Case was discussed with the hospitalist for admission. Patient and family understand and are agreeable with plan. All questions were answered. Critical Care Time Critical Care Time: Yes Critical care time (excluding procedures): 30-74 minutes (32), Including time spent:, Discussing w/Patient &/or Family/Safety Sealer, Discussing w/Consultants, Arranging Admission or Transfer and Performing Direct Patient Care at Bedside Discharge Plan Triage Chief Complaint: Stroke Alert ED Provider: Praveen Brewer Dx/Rx/DC Orders Clinical Impression: Slurred speech, Pyelonephritis, Leukocytosis Prescriptions: No Action simvastatin 20 mg tablet 20 mg PO QHS losartan 100 mg tablet 100 mg PO DAILY coenzyme Q10 [Co Q-10] 100 mg capsule 100 mg PO DAILY cholecalciferol (vitamin D3) [Vitamin D3] 25 mcg (1,000 unit) capsule 25 mcg PO DAILY zolpidem 12.5 mg tablet,ext release multiphase 12.5 mg PO QHS PRN (Reason: insomnia) ondansetron 4 mg tablet,disintegrating 4 mg PO TID PRN (Reason: nausea and vomiting) Qty: 21 0RF albuterol sulfate 90 mcg/actuation HFA aerosol inhaler 2 puff inhalation Q4H PRN (Reason: wheezing) ciprofloxacin HCl 500 mg tablet 500 mg PO BID Qty: 12 0RF Patient Comments: FOR 6 DAYS vancomycin 125 mg capsule 125 mg PO Q6H 16 Days Qty: 64 0RF Patient Comments: FOR 16 DAYS Primary Care Provider: Cooper Rivers Referrals: Cooper Rivers MD [Primary Care Provider] - Print Language: German Disposition Disposition: Acute Care Hospital [facility]
[2025-02-10 10:48] LABS: Bedside Glucose 106 mg/dL (74-106)
[2025-02-10 11:03] LABS: Absolute Lymphocyte Count 1.37 X10^3/uL (0.83-4.51); Absolute Neutrophil Count 7.8 X10^3/uL (2.0-7.7); Basophil# 0.06 X10^3/uL; Basophil% 0.5 % (0-1); Eosinophil# 0.15 X10^3/uL; Eosinophils% 1.3 % (0-5); Hematocrit 29.4 % (37-47); Hemoglobin 9.7 g/dL (12.0-15.0); Lymphocyte # 1.37 X10^3/ul (0.83-4.51); Lymphocyte % 12.2 % (19-41); Mean Platelet Vol. 12.2 fl (6.2-12.0); Monocyte# 1.72 X10^3/uL; Monocyte% 15.4 % (0-10); NRBC Flagged by Analyzer 0 % (0-5); Neutrophil # 7.77 X10^3/uL (2.7-7.7); Neutrophil % 69.5 % (47-70); POSITIVE DIFFERENTIAL YES; Platelet Count 159 K/mm3 (150-450); RBC Distribution Width CV 14.5 % (11.6-14.6); RBC Distribution Width SD 48.7 fl (35.1-43.9); Red Blood Count 3.23 M/mm3 (4.2-5.4); White Blood Count 11.2 K/mm3 (4.4-11.0)
[2025-02-10 11:12] LABS: International Normalized Ratio 1.1; Prothrombin Time (Protime)PT. 14.8 SECONDS (11.7-14.9)
[2025-02-10 11:13] LABS: Partial Thromboplast Time 25.3 Seconds (24.1-36.2)
[2025-02-10 11:40] LABS: Differential Indicated SCAN CRITERIA MET
[2025-02-10 11:44] LABS: Atypical Lymphocyte 1+ %; Platelet Estimate A (ADEQ)
[2025-02-10 11:51] LABS: Anion Gap 10 (5-15); BUN 10 mg/dL (4-19); BUN/Creat Ratio 12.6 RATIO (10-20); Calcium,Total 8.4 mg/dL (7.6-11.0); Carbon Dioxide 26.8 mmol/L (21.0-32.0); Chloride 95 mmol/L (98-108); Creatinine, Serum 0.81 mg/dL (0.70-1.20); EST Glomerular Filtration Rate 82 (>60); Estimated Creatinine Clearance 84.62 ml/min (50-250); Glucose 111 mg/dL (70-99); Potassium 3.4 mmol/L (3.3-5.1); Sodium Level 131 mmol/L (133-145); Troponin T High Sensitivity 9 ng/L (<=14)
[2025-02-10] MEDS: Ciprofloxacin 400 MG/200 ML BAG 200 MG IV (12:58)
--- NOTE | 2025-02-10 13:12 | PCM.HP.STD ---
[facility] - General General Date of Service: 02/10/25 Chief Complaint: confusion. slurred speech. HPI Narrative ADRIANNA SHAH, is a 64 F who presents with confusion and slurred speech. This is a 64-year-old female who was just discharged yesterday with sepsis secondary to a UTI and CDF. Patient underwent cystoscopy and had a stent placed into her left due to her having a left-sided nephrolithiasis and concern for that stone being infected. Stone was not able to be extracted but did have stent placed. Patient while she was here did develop C. difficile and was started on oral vancomycin. Patient overall was doing much better and was discharged to continue with ciprofloxacin as well as vancomycin for the C. difficile. Patient was doing well at home and then went to bed with no issues and then awoke this morning was confused, and was apparently hallucinating and her speech was slurred. Brought to the hospital under stroke alert and underwent head and neck CTA that did not show any LVO but did show extensive atherosclerosis of the left carotid bulb with moderate to severe stenosis of the proximal left ICA. The hospital service was contacted for admission. Patient is confused pleasantly so at this time but not reliable historian so history is obtained through the emergency room physician as well as the patient's who is at bedside. [facility] Medical History Proximal humerus fracture Wears glasses High cholesterol Gastric reflux Smoker Chronic cough Hypertension Home Medications ?Medication ?Instructions ?Recorded ?Last Taken ?Type ondansetron 4 mg disintegrating 4 mg PO TID PRN nausea and 11/03/24 Unknown Rx tablet vomiting #21 tabs cholecalciferol (vitamin D3) 25 25 mcg PO DAILY 11/14/24 11/20/24 History mcg (1,000 unit) capsule (Vitamin D3) coenzyme Q10 100 mg capsule (Co 100 mg PO DAILY 11/14/24 11/20/24 History Q-10) losartan 100 mg tablet 100 mg PO DAILY 11/14/24 11/20/24 History simvastatin 20 mg tablet 20 mg PO QHS 11/14/24 11/20/24 History zolpidem 12.5 mg tablet,extended 12.5 mg PO QHS PRN insomnia 11/14/24 11/20/24 History release,multiphase albuterol sulfate 90 mcg/actuation 2 puff inhalation Q4H PRN wheezing 02/06/25 Unknown History aerosol inhaler ciprofloxacin HCl 500 mg tablet 500 mg PO BID #12 tabs 02/09/25 Unknown Rx vancomycin 125 mg capsule 125 mg PO Q6H 16 days #64 caps 02/09/25 Unknown Rx Allergy/AdvReac Type Severity Reaction Status Date / Time No Known Allergies Allergy Verified 02/10/25 10:29 Family History (Updated 02/10/25 @ 13:[address] Praveen Wayne DO) Father CVA (cerebral vascular accident) Surgical History History of History of cholecystectomy Social History Smoking Status: Current every day smoker tobacco type: cigarettes ROS ROS Narrative Patient confused and doings dozing off so unable to obtain an adequate review of systems outside HPI. Vital Signs Vital Signs Vital Signs: 02/10/25 10:30 02/10/25 10:32 02/10/25 10:34 Temperature 36.6 C 36.6 C Temperature Source Temporal Temporal Pulse Rate 94 Respiratory Rate 12 Blood Pressure 143/70 H Blood Pressure Mean 94 Pulse Ox 95 Oxygen Delivery Method Room Air Room Air 02/10/25 10:58 02/10/25 11:01 02/10/25 11:30 Temperature 36.9 C Temperature Source Oral Pulse Rate 100 92 91 Respiratory Rate 16 18 20 H Blood Pressure 137/65 H 139/71 H 126/79 H Blood Pressure Mean 89 93 94 Pulse Ox 97 98 93 Oxygen Delivery Method 02/10/25 11:30 02/10/25 12:00 02/10/25 12:30 Temperature Temperature Source Pulse Rate 91 91 Respiratory Rate 20 H 20 H Blood Pressure 126/79 H 152/77 H 131/79 H Blood Pressure Mean 94 102 96 Pulse Ox 93 96 Oxygen Delivery Method Room Air 02/10/25 12:30 02/10/25 13:00 02/10/25 13:00 Temperature Temperature Source Pulse Rate 95 92 Respiratory Rate 27 H 27 H Blood Pressure 131/79 H 146/88 H 146/88 H Blood Pressure Mean 96 107 107 Pulse Ox 93 93 Oxygen Delivery Method Room Air Room Air 02/10/25 13:05 Temperature 36.9 C Temperature Source Pulse Rate 91 Respiratory Rate 26 H Blood Pressure 146/88 H Blood Pressure Mean 107 Pulse Ox 93 Oxygen Delivery Method Weight Weight: 96.1 kg Body Mass Index (BMI) 33.1 Physical Exam Narrative - Physical Exam General: Alert, Oriented x3, Cooperative. Speech is slurred. She is confused but does follow commands. Dozes off during the encounter. HEENT: Atraumatic, PERRLA, EOMI, Normocephalic Oral: Moist Mucosa, No Gingival or Mucosal Lesions/ Ulcerations Neck: Supple, No JVD, Negative Carotid Bruits Lungs: Clear to auscultation, Normal air movement Cardiovascular: Regular rate, Normal S1, Normal S2, No murmurs Abdomen: Bowel Sounds Present, Soft, Non Tender, Non-Distended, No Hepato-splenomegaly Extremities: No clubbing, No cyanosis, No edema, Capillary Refill Less than 3 Seconds Skin: No rashes, No breakdown Musculoskeletal: No Tenderness to Palpation of Joints or Extremities Neurological: Cranial nerves II through XII grossly intact. Muscle strength 5-5 in upper and lower extremities bilaterally. Does have just some slight global ataxia but nothing focal. Patient did have some slowness in responding to description of the [facility] scenes and did have some slow speech in regards to saying the words of the [facility] screen. Psych/Mental Status: Normal Affect, Appropriate Results Lab / Micro Data Attestation: I reviewed the patient's lab results. 02/10/25 10:55 02/10/25 10:55 Labs: Laboratory Results - last 24 hr 02/10/25 10:30: POC Glucose 106 02/10/25 10:55: WBC 11.2 H, RBC 3.23 L, Hgb 9.7 L, Hct 29.4 L, MCV 91.0, MCH 30.0, MCHC 33.0, RDW Std Deviation 48.7 H, RDW Coeff of Tavia 14.5, Plt Count 159, MPV 12.2 H, Immature Gran % (Auto) 1.100 H, Neut % (Auto) 69.5, Lymph % (Auto) 12.2 L, [place] % (Auto) 15.4 H, Eos % (Auto) 1.3, Baso % (Auto) 0.5, Absolute Neuts (auto) 7.8 H, Absolute Lymphs (auto) 1.37, Nucleated RBC % 0, Atypical Lymphocytes 1+, Platelet Estimate A, PT 14.8, INR 1.1, APTT 25.3, Sodium 131 L, Potassium 3.4, Chloride 95 L, Carbon Dioxide 26.8, Anion Gap 10, BUN 10, Creatinine 0.81, Estim Creat Clear Calc 84.62, Est GFR (MDRD) Non-Af 82, BUN/Creatinine Ratio 12.6, Glucose 111 H, Calcium 8.4, Troponin T High Sens 9 Imaging Radiology Impression Brain CT 02/10/25 10:32 IMPRESSION: No acute, large territorial infarction. Dr. Brewer was notified by Cheryl Major at 10:45 am EST on 02/10/2025. Reading Location: [id number] Chest X-Ray 02/10/25 10:32 IMPRESSION: No Acute Findings. Reading Location: [id number] Head/Neck CTA 02/10/25 10:32 IMPRESSION: No acute large vessel occlusion. No intracranial high-grade stenosis. Extensive atherosclerosis of the left carotid bulb with moderate to severe stenosis at the proximal left ICA. Reading Location: [id number] Assessment & Plan Assessment/Plan (1) Slurred speech: PLAN: Along with confusion Concerning this is a CVA as patient does have prominent carotid bulb stenosis on the left. Acute onset. Patient awoke with this. She was outside the window for any tenecteplase. Patient undergo an MRI of the brain, echocardiogram, therapy evaluations. Additionally will check a toxicology screen. Will load with aspirin and continue with aspirin. Change her simvastatin over to high intensity atorvastatin. Continue follow-up with [facility] teleneurology. Unclear if there is any correlation with her zolpidem use but that will be held for now. PLAN: Plan Pyelonephritis: CT showed Left-side pyelonephritis with a stone at the left renal pelvis. Continue with antibiotics with ciprofloxacin through February 15. Urine culture showed Klebsiella C. difficile colitis: No recent antibiotics other than her hospitalization here. Will start vancomycin while she is here. Would qualify this as Mild disease, so, started vancomycin 125 QID. Will continue vancomycin prefer an extended course this patient is going to be on antibiotics for her pyelonephritis. Would continue the antibiotics 10 days beyond the ciprofloxacin being discontinued. That would be February 25 Calculus of renal pelvis: Pt underwent cystoscopy 02/07 with left stent placement. Follow-up with urology as outpatient. Chronic conditions Obesity class II: Complicates care and recovery Hypertension: HCTZ and losartan held given GRISELDA VTE prophylaxis with enoxaparin Discussed with patient's at bedside. Charges/Coding Visit Charges Inpatient E&M: 48750 Init Hosp L3
[2025-02-10 14:19] LABS: Troponin T High Sens 2 HR 8 ng/L (<=14)
[2025-02-10 15:41] LABS: Amphetamine Urine NEGATIVE (<1000 ng/mL); Barbiturate Urine NEGATIVE (< 200 ng/mL); Benzodiazepine Urine NEGATIVE (< 200 ng/mL); Buprenorphine Urine NEGATIVE (< 200 ng/mL); Cocaine Urine NEGATIVE (< 300 ng/mL); Fentanyl, Urine NEGATIVE; Methadone Urine NEGATIVE (< 300 ng/mL); Opiates Urine NEGATIVE (< 300 ng/mL); Oxycodone, Urine NEGATIVE (< 100 ng/mL); PCP Urine NEGATIVE (< 25 ng/mL); THC Urine NEGATIVE (< 50 ng/mL)
[2025-02-10 16:10] LABS: Troponin T High Sens 4 HR 7 ng/L (<=14)
--- NOTE | 2025-02-10 19:00 | MRI_ITS ---
EXAM: Noncontrast MRI head CLINICAL HISTORY: Concern for CVA. Confusion and slurred speech. COMPARISON: None. TECHNIQUE: MRI of the brain was performed according to standard departmental protocol utilizing: Sagittal and axial T1, axial FLAIR, fat saturated fast spin echo axial T2, Susceptibility, diffusion FINDINGS: The ventricles, sulci, and cisterns are age-appropriate in size. There is no evidence of intracranial bleed or acute infarction. There is no midline shift, mass effect, or extra-axial fluid collection. No area of restricted diffusion are identified on DWI images. Mild scattered T2 bright supratentorial lesions, compatible with chronic microvascular ischemic changes. The basal ganglia, carlos, pituitary, corpus callosum and cerebellum appear normal. The visualized paranasal sinuses, mastoids, and orbits are unremarkable. The flow voids of the major intracranial vessels are grossly patent. The visualized extracranial structures, within limits of technique, are unremarkable. MRI/Brain without Contrast IMPRESSION: No acute intracranial finding. Chronic changes as described. Reading Location: [id number]
--- NOTE | 2025-02-10 19:00 | ECHOD_ITS ---
Reason For Study Reason For Study: TIA/CVA Procedure This was a 2D Doppler, Color Flow transthoracic echocardiogram. Exam performed portable in patient room. Left Ventricle Normal LV size. Mild concentric left ventricular hypertrophy. The LV ejection fraction is 65 %. Stage 1 diastolic dysfunction. Right Ventricle Normal right ventricle. Atria The left and right atria are normal. Bubble contrast study is negative for PFO/ASD. Mitral Valve Trivial mitral valve insufficiency. Tricuspid Valve Trivial tricuspid valve insufficiency. Unable to estimate RV systolic pressure due to insufficient tricuspid regurgitant envelope. Aortic Valve Trisinus/trileaflet aortic valve. Pulmonic Valve Trivial pulmonic valve insufficiency. Great Vessels Normal sized aortic root. Pericardium/Pleural No pericardial effusion. MMode/2D Measurements & Calculations LVIDd: 4.9 cm IVSd: 1.2 cm Ao root diam: 3.4 cm LVIDs: 2.9 cm LVPWd: 0.97 cm RVDd: 3.6 cm FS: 40.7 % LAV(MOD-bp): 49.9 ml LVAd ap4: 29.7 cm2 SV(MOD-sp4): 51.5 ml LAV(MOD-bp) Indexed: 23.9 ml/m2 LVLd ap4: 7.9 cm SI(MOD-sp4): 24.7 ml/m2 LAV(MOD-sp2): 52.1 ml EDV(MOD-sp4): 91.6 ml LAV(MOD-sp4): 43.6 ml EDV(sp4-el): 95.4 ml LVAs ap4: 17.7 cm2 LVLs ap4: 6.7 cm ESV(MOD-sp4): 40.2 ml ESV(sp4-el): 40.2 ml EF(MOD-sp4): 56.2 % EF(sp4-el): 57.9 % SV(sp4-el): 55.2 ml LA A4 area: 17.4 cm2 LA dimension(2D): 3.7 cm RA A4 area: 12.8 cm2 TAPSE: 2.6 cm Time Measurements MV dec time: 0.17 sec Doppler Measurements & Calculations MV E max lv: 110.5 cm/sec Lat Peak E' Lv: 11.6 cm/sec Med Peak E' Lv: 9.9 cm/sec MV A max lv: 108.4 cm/sec E/E' lat: 9.5 E/E' med: 11.2 MV E/A: 1.0 MV V2 max: 123.3 cm/sec MV P1/2t max lv: 122.8 cm/sec Ao V2 max: 149.6 cm/sec MV max P.1 mmHg MV P1/2t: 60.8 msec Ao max P.0 mmHg MV V2 mean: 70.4 cm/sec Ao V2 mean: 99.6 cm/sec MV mean P.4 mmHg MV dec slope: 591.8 cm/sec2 Ao mean P.7 mmHg MV V2 VTI: 32.8 cm MVA(P1/2t): 3.6 cm2 Ao V2 VTI: 29.7 cm AV (velocity ratio): 0.89 LV V1 max: 142.0 cm/sec PA V2 max: 85.8 cm/sec LV V1 max P.1 mmHg PA V2 mean: 58.0 cm/sec LV V1 mean P.3 mmHg LV V1 mean: 96.0 cm/sec LV V1 VTI: 26.5 cm ECHO/Echo Complete Interpretation Summary Mild concentric left ventricular hypertrophy. The LV ejection fraction is 65 %. Stage 1 diastolic dysfunction. Bubble contrast study is negative for PFO/ASD. Ordering Physician: Praveen Wayne Referring Physician: Praveen Wayne Performed By: Prasanna Calixto RCS
[2025-02-10] MEDS: Ciprofloxacin 500 MG Tablet PO (21:48)
[2025-02-10] MEDS: Aspirin 325 MG Tablet PO (21:48)
[2025-02-10] MEDS: Atorvastatin Calcium 80 MG Tablet PO (21:48)
[2025-02-11] MEDS: Vancomycin 125 MG/5 ML Susp PO.SYRINGE PO ×3 (00:41→13:08)
[2025-02-11 04:01] VITALS: BMI 30.8
[2025-02-11 06:38] LABS: Absolute Lymphocyte Count 1.67 X10^3/uL (0.83-4.51); Basophil# 0.06 X10^3/uL; Basophil% 0.5 % (0-1); Eosinophil# 0.21 X10^3/uL; Eosinophils% 1.8 % (0-5); Hemoglobin 10.7 g/dL (12.0-15.0); Lymphocyte # 1.67 X10^3/ul (0.83-4.51); Lymphocyte % 14.1 % (19-41); Mean Corp Hgb Conc 33.4 g/dL (32-36); Mean Corpuscular Volume 89.6 fL (81-99); Mean Platelet Vol. 12.1 fl (6.2-12.0); Monocyte# 1.51 X10^3/uL; Monocyte% 12.8 % (0-10); NRBC Flagged by Analyzer 0 % (0-5); Neutrophil # 8.03 X10^3/uL (2.7-7.7); Neutrophil % 67.8 % (47-70); POSITIVE DIFFERENTIAL YES; Platelet Count 247 K/mm3 (150-450); RBC Distribution Width CV 14.4 % (11.6-14.6); RBC Distribution Width SD 47.8 fl (35.1-43.9); Red Blood Count 3.57 M/mm3 (4.2-5.4); White Blood Count 11.8 K/mm3 (4.4-11.0)
[2025-02-11 06:48] LABS: Differential Indicated SCAN CRITERIA MET
[2025-02-11 06:57] LABS: Anion Gap 12 (5-15); BUN 8 mg/dL (4-19); Calcium,Total 8.9 mg/dL (7.6-11.0); Carbon Dioxide 25.5 mmol/L (21.0-32.0); Chloride 99 mmol/L (98-108); Creatinine, Serum 0.72 mg/dL (0.70-1.20); EST Glomerular Filtration Rate 95 (>60); Estimated Creatinine Clearance 101.14 ml/min (50-250); Glucose 120 mg/dL (70-99); Potassium 3.3 mmol/L (3.3-5.1); Sodium Level 137 mmol/L (133-145)
[2025-02-11 07:15] VITALS: O2SAT 92
[2025-02-11 07:24] LABS: Cholesterol 124 mg/dL (<=200); High Density Lipoprotein 21 mg/dL; Low Density Lipoprotein Calc. 72 mg/dL; Triglycerides 156 mg/dL; Very Low Density Lipoprotein 31 mg/dL (5-40)
[2025-02-11 07:30] VITALS: BMI 30.8
--- NOTE | 2025-02-11 08:12 | PN.HOSP_ITS ---
Reason for Visit Reason for Visit: Diagnoses Slurred speech (02/10/25) Objective Data Objective Data Vital Signs: Vital Signs Temp Pulse Resp BP Pulse Ox O2 Del Method O2 Flow Rate 98.2 F 77 18 155/82 H 94 Room Air 2 02/10/25 23:20 02/10/25 23:20 02/10/25 23:20 02/10/25 23:20 02/10/25 23:20 02/10/25 23:20 02/10/25 21:07 Oxygen Flow Rate (L/min) 2 Oxygen Delivery Method Room Air Weight: 97.522 kg Body Mass Index (BMI) 30.8 Intake & Output: Intake and Output for Last 24 Hours 02/09/25 02/10/25 02/11/25 23:59 23:59 23:59 Intake Total 200 / 200 Balance 200 / 200 Lab / Micro Data 02/11/25 06:13 02/11/25 06:13 Labs: Laboratory Results - last 24 hr 02/10/25 10:30: POC Glucose 106 02/10/25 10:55: WBC 11.2 H, RBC 3.23 L, Hgb 9.7 L, Hct 29.4 L, MCV 91.0, MCH 30.0, MCHC 33.0, RDW Std Deviation 48.7 H, RDW Coeff of Tavia 14.5, Plt Count 159, MPV 12.2 H, Immature Gran % (Auto) 1.100 H, Neut % (Auto) 69.5, Lymph % (Auto) 12.2 L, [place] % (Auto) 15.4 H, Eos % (Auto) 1.3, Baso % (Auto) 0.5, Absolute Neuts (auto) 7.8 H, Absolute Lymphs (auto) 1.37, Nucleated RBC % 0, Atypical Lymphocytes 1+, Platelet Estimate A, PT 14.8, INR 1.1, APTT 25.3, Sodium 131 L, Potassium 3.4, Chloride 95 L, Carbon Dioxide 26.8, Anion Gap 10, BUN 10, Creatinine 0.81, Estim Creat Clear Calc 84.62, Est GFR (MDRD) Non-Af 82, BUN/Creatinine Ratio 12.6, Glucose 111 H, Calcium 8.4, Troponin T High Sens 9 02/10/25 13:00: Troponin T Hi Sens 2 Hr 8 02/10/25 14:30: Urine Opiates Screen NEGATIVE, U Buprenorphine Qual NEGATIVE, Ur Oxycodone Screen NEGATIVE, Urine Methadone Screen NEGATIVE, Urine Fentanyl Screen NEGATIVE, Ur Barbiturates Screen NEGATIVE, Ur Phencyclidine Scrn NEGATIVE, Ur Amphetamines Screen NEGATIVE, U Benzodiazepines Scrn NEGATIVE, Urine Cocaine Screen NEGATIVE, U Cannabinoids Screen NEGATIVE 02/10/25 15:20: Troponin T Hi Sens 4Hr 7 02/11/25 06:13: WBC 11.8 H, RBC 3.57 L, Hgb 10.7 L, Hct 32.0 L, MCV 89.6, MCH 30.0, MCHC 33.4, RDW Std Deviation 47.8 H, RDW Coeff of Tavia 14.4, Plt Count 247, MPV 12.1 H, Immature Gran % (Auto) 3.000 H, Neut % (Auto) 67.8, Lymph % (Auto) 14.1 L, [place] % (Auto) 12.8 H, Eos % (Auto) 1.8, Baso % (Auto) 0.5, Absolute Neuts (auto) 8.0 H, Absolute Lymphs (auto) 1.67, Nucleated RBC % 0, Sodium 137, Potassium 3.3, Chloride 99, Carbon Dioxide 25.5, Anion Gap 12, BUN 8, Creatinine 0.72, Estim Creat Clear Calc 101.14, Est GFR (MDRD) Non-Af 95, BUN/Creatinine Ratio 11.0, Glucose 120 H, Calcium 8.9, Triglycerides 156, Cholesterol 124, LDL Cholesterol, Calc 72, VLDL Cholesterol 31, HDL Cholesterol 21 L, Cholesterol/HDL Ratio 5.90 Radiography Diagnostic Testing: Radiology Impression Brain CT 02/10/25 10:32 IMPRESSION: No acute, large territorial infarction. Dr. Brewer was notified by Cheryl Major at 10:45 am EST on 02/10/2025. Reading Location: [id number] Chest X-Ray 02/10/25 10:32 IMPRESSION: No Acute Findings. Reading Location: [id number] Head/Neck CTA 02/10/25 10:32 IMPRESSION: No acute large vessel occlusion. No intracranial high-grade stenosis. Extensive atherosclerosis of the left carotid bulb with moderate to severe stenosis at the proximal left ICA. Reading Location: [facility] Brain MRI 02/10/25 19:00 IMPRESSION: No acute intracranial finding. Chronic changes as described. Reading Location: [facility] NIHSS NIHSS Nursing Documentation NIHSS Nursing Documentation: NIHSS: Ischemic Stroke/TIA Start: 02/10/25 19:00 Text: For ICU Patients: NIH sroke scale at Status: Complete presentation and every 2 hours or with change in RN caregiver Freq: [id number] Protocol: Activity Type Activity Date Activity User E-sign Co-sign Detail Recorded Client Recorded Date Recorded By Document 02/10/25 19:35 LF [id number] 02/10/25 21:07 LF 02/10/25 19:35 NIH Stroke Scale [NIHSS] A score of 0 is normal or asymptomatic . Total possible score is 42. Inpatient: RN or Physician to activate a stroke alert for onset of new stroke symptoms or with NIHSS increase >/= 3 points. Following change in neurological status, NIHSS will be performed per physician order or more frequently PRN. -1a. Level of Consciousness 0 - Alert; keenly responsive -1b. LOC Questions 1 - Answers ONE question correctly -1c. LOC Commands 0 - Performs BOTH tasks correctly -2. Best Gaze 0 - Normal -3. Visual 0 - No visual loss -4. Facial Palsy 0 - Normal symmetrical movements -5a. Left Arm 0 - No drift; arm holds 90 ( or 45) degrees for full 10 seconds -5b. Right Arm 0 - No drift; arm holds 90 ( or 45) degrees for full 10 seconds -6a. Left Leg 0 - No drift; leg holds 30- degree position for full 5 seconds -6b. Right Leg 0 - No drift; leg holds 30- degree position for full 5 seconds -7. Limb Ataxia 0 - Absent -8. Sensory 0 - Normal; no sensory loss -9. Best Language 0 - No aphasia; normal -10. Dysarthria 0 - Normal -11. Extinction and Inattention 0 - No abnormality -Total 1 Query Text:A score of 0 is normal or asymptomatic. Total possible score is 42 . ED: Notify Physician for NIHSS increase by > / = 3 points. Inpatient: RN or Physician to activate a stroke alert for NIHSS increase of > / = 3 points. Coma Scale [Assess] -Eye Opening Spontaneous -Motor Obeys Commands -Verbal Oriented [Total] -Coma Scale Total 15 NIHSS: Ischemic Stroke/TIA Start: 02/10/25 19:00 Text: For PCU Patients: NIH and Neuro Check every 4 Status: Active hours, PRN and with change in RN caregiver. Freq: Q4H Protocol: Activity Type Activity Date Activity User E-sign Co-sign Detail Recorded Client Recorded Date Recorded By Document 02/11/25 03:20 [facility] [id number] 02/11/25 04:00 [facility] 02/11/25 03:20 NIH Stroke Scale [NIHSS] A score of 0 is normal or asymptomatic . Total possible score is 42. Inpatient: RN or Physician to activate a stroke alert for onset of new stroke symptoms or with NIHSS increase >/= 3 points. Following change in neurological status, NIHSS will be performed per physician order or more frequently PRN. -1a. Level of Consciousness 0 - Alert; keenly responsive -1b. LOC Questions 0 - Answers BOTH questions correctly -1c. LOC Commands 0 - Performs BOTH tasks correctly -2. Best Gaze 0 - Normal -3. Visual 0 - No visual loss -4. Facial Palsy 0 - Normal symmetrical movements -5a. Left Arm 0 - No drift; arm holds 90 ( or 45) degrees for full 10 seconds -5b. Right Arm 0 - No drift; arm holds 90 ( or 45) degrees for full 10 seconds -6a. Left Leg 0 - No drift; leg holds 30- degree position for full 5 seconds -6b. Right Leg 0 - No drift; leg holds 30- degree position for full 5 seconds -7. Limb Ataxia 0 - Absent -8. Sensory 0 - Normal; no sensory loss -9. Best Language 0 - No aphasia; normal -10. Dysarthria 0 - Normal -11. Extinction and Inattention 0 - No abnormality -Total 0 Query Text:A score of 0 is normal or asymptomatic. Total possible score is 42 . ED: Notify Physician for NIHSS increase by > / = 3 points. Inpatient: RN or Physician to activate a stroke alert for NIHSS increase of > / = 3 points.
[2025-02-11] MEDS: Aspirin 81 MG TAB.CHEW PO (08:42)
[2025-02-11] MEDS: Ciprofloxacin 500 MG Tablet PO (08:42)
[2025-02-11] MEDS: Cholecalciferol (VIT D3) 25 MCG TABLET (1,000 UNITS) PO (08:42)
[2025-02-11] MEDS: Losartan Potassium 100 MG Tablet PO (08:42)
[2025-02-11] MEDS: Enoxaparin 40 MG/0.4 ML Syringe SC (08:42)
[2025-02-11 08:43] VITALS: BP 132/58; PULSE 90; RESP 18; TEMP 36.6; O2SAT 97
[2025-02-11 09:16] LABS: Platelet Estimate A (ADEQ); Platelet Morphology GIANT
[2025-02-11 09:18] LABS: Atypical Lymphocyte 1+ %; Reactive Lymphocyte 1+
[2025-02-11 09:19] LABS: Spherocyte 1+
[2025-02-11 10:32] VITALS: BMI 30.8
--- NOTE | 2025-02-11 10:59 | NEURO.CONS ---
Assessment and Plan: Neuro Assessment/Plan ADRIANNA SHAH is a 64 F with a past medical history of recent infection (UTI, renal stone w stent, cdiff), being evaluated by Teleneurology for transient episode of confusion and hallucinations in setting of recently transitioning home and poor sleep. On exam, patient is her normal self (with chronic R shoulder weakness) and imaging is benign. At this time, likely related to delirium but transitioning from one state to another. Delirium precautions and promotion of sleep at night, avoiding dehydration and constipation. No further workup, will sign off. Diagnosis: delirium I personally attended this patient and spent a total time of 45 minutes evaluating this patient including clinical assessment, review of chart, medical history imaging, and determining appropriate treatment and workup. HPI Consult Data Date of Consult: 02/11/25 HPI Narrative HPI Narrative: ADRIANNA SHAH, is a 64 F who presents with confusion and slurred speech. This is a 64-year-old female who was just discharged yesterday with sepsis secondary to a UTI and CDF. Patient underwent cystoscopy and had a stent placed into her left due to her having a left-sided nephrolithiasis and concern for that stone being infected. Stone was not able to be extracted but did have stent placed. Patient while she was here did develop C. difficile and was started on oral vancomycin. Patient overall was doing much better and was discharged to continue with ciprofloxacin as well as vancomycin for the C. difficile. Patient was doing well at home and then went to bed with no issues and then awoke this morning was confused, and was apparently hallucinating and her speech was slurred. Brought to the hospital under stroke alert and underwent head and neck CTA that did not show any LVO but did show extensive atherosclerosis of the left carotid bulb with moderate to severe stenosis of the proximal left ICA. The hospital service was contacted for admission. Neurologic History Patient got home and was home night and was brought back Thursday morning. At home she had slurred speech and confusion. Patient thought she may have dies in thehospital and was hallucinating where she was and people. She was not completly normal when she got home and still confused. She was getting better at home but then went to bed and got up several times at in middle of night at home (which is not abnormal) but the following morning was very confused, delusional, and hallucinating. No focal weakness per . Patient does not remember thursday morning very well, remembers going home from the hospital but nothing after. Per and patient she is back to her normal self. Exam: -? General: Laying comfortably in bed; in no acute distress. -? HENT: Normal oropharynx and mucosa. Normal external appearance of ears and nose. Exophthalmos. -? Neck: Supple, no pain or tenderness -? CV:? No peripheral edema. -? Pulmonary:? Normal respiratory effort. -? Ext: No cyanosis, edema, or deformity -? Skin: No rash. Normal palpation of skin.? -? Musculoskeletal: full range of motion; no joint tenderness. Normal digits and nails by inspection. No clubbing. -? NEURO: -? Mental Status: The patient was alert and oriented to time, place, and person. Normal recent/remote memory, concentration, and general fund of knowledge. -? Language: speech is clear ? Naming, repetition, fluency, and comprehension intact. -? Cranial Nerves: PERRL3 mm/brisk. EOMI, visual escobar full, no facial asymmetry, facial sensation intact, hearing intact, tongue midline, no evidence of atrophy or fibrillations. -? Motor: RUE pronation at baseline R L SA 5- 5 EE EF WE [employer] 5 5 HF 5- 5 KE KF 5 5 DF PF -? Tone: is normal and bulk is normal -? Sensation- Intact to light touch bilaterally -? Coordination: No dysmetria on [id number], finger follow finger or [id number]. -? Gait- Gait initiation was normal. Narrow base with good heel strike and stride length was observed during ambulation. Turns were in stride. [facility] Medical History Proximal humerus fracture Wears glasses High cholesterol Gastric reflux Smoker Chronic cough Hypertension Home Medications ?Medication ?Instructions ?Recorded ?Last Taken ?Type ondansetron 4 mg disintegrating 4 mg PO TID PRN nausea and 11/03/24 Unknown Rx tablet vomiting #21 tabs cholecalciferol (vitamin D3) 25 25 mcg PO DAILY 11/14/24 11/20/24 History mcg (1,000 unit) capsule (Vitamin D3) coenzyme Q10 100 mg capsule (Co 100 mg PO DAILY 11/14/24 11/20/24 History Q-10) losartan 100 mg tablet 100 mg PO DAILY 11/14/24 11/20/24 History simvastatin 20 mg tablet 20 mg PO QHS 11/14/24 11/20/24 History zolpidem 12.5 mg tablet,extended 12.5 mg PO QHS PRN insomnia 11/14/24 11/20/24 History release,multiphase albuterol sulfate 90 mcg/actuation 2 puff inhalation Q4H PRN wheezing 02/06/25 Unknown History aerosol inhaler ciprofloxacin HCl 500 mg tablet 500 mg PO BID #12 tabs 02/09/25 Unknown Rx vancomycin 125 mg capsule 125 mg PO Q6H 16 days #64 caps 02/09/25 Unknown Rx Allergy/AdvReac Type Severity Reaction Status Date / Time No Known Allergies Allergy Verified 02/10/25 10:29 Family History (Updated 02/10/25 @ 13:[address] Praveen Wayne DO) Father CVA (cerebral vascular accident) Surgical History History of History of cholecystectomy Social History Smoking Status: Current every day smoker tobacco type: cigarettes Vital Signs Vital Signs Vital Signs: 02/10/25 11:01 02/10/25 11:30 02/10/25 11:30 Temperature 98.5 F Temperature Source Oral Pulse Rate 92 91 91 Respiratory Rate 18 20 H 20 H Blood Pressure 139/71 H 126/79 H 126/79 H Blood Pressure Mean 93 94 94 Blood Pressure Source Blood Pressure Position Blood Pressure Location Pulse Ox 98 93 93 Oxygen Delivery Method Oxygen Flow Rate (L/min) 02/10/25 12:00 02/10/25 12:30 02/10/25 12:30 Temperature Temperature Source Pulse Rate 91 95 Respiratory Rate 20 H 27 H Blood Pressure 152/77 H 131/79 H 131/79 H Blood Pressure Mean 102 96 96 Blood Pressure Source Blood Pressure Position Blood Pressure Location Pulse Ox 96 93 Oxygen Delivery Method Room Air Room Air Oxygen Flow Rate (L/min) 02/10/25 13:00 02/10/25 13:00 02/10/25 13:05 Temperature 98.5 F Temperature Source Pulse Rate 92 91 Respiratory Rate 27 H 26 H Blood Pressure 146/88 H 146/88 H 146/88 H Blood Pressure Mean 107 107 107 Blood Pressure Source Blood Pressure Position Blood Pressure Location Pulse Ox 93 93 Oxygen Delivery Method Room Air Oxygen Flow Rate (L/min) 02/10/25 13:29 02/10/25 14:00 02/10/25 14:30 Temperature Temperature Source Pulse Rate 95 91 89 Respiratory Rate 20 H Blood Pressure 143/83 H 136/74 H 141/70 H Blood Pressure Mean 103 94 93 Blood Pressure Source Blood Pressure Position Blood Pressure Location Pulse Ox 94 95 Oxygen Delivery Method Room Air Room Air Oxygen Flow Rate (L/min) 02/10/25 15:00 02/10/25 15:30 02/10/25 16:00 Temperature Temperature Source Pulse Rate 89 93 98 Respiratory Rate 20 H 19 H 20 H Blood Pressure 146/78 H 144/70 H 148/101 H Blood Pressure Mean 100 94 116 Blood Pressure Source Blood Pressure Position Blood Pressure Location Pulse Ox 97 94 94 Oxygen Delivery Method Room Air Room Air Room Air Oxygen Flow Rate (L/min) 02/10/25 16:30 02/10/25 17:00 02/10/25 17:30 Temperature Temperature Source Pulse Rate 98 103 H 103 H Respiratory Rate 27 H 16 16 Blood Pressure 147/74 H 141/66 H 154/72 H Blood Pressure Mean 98 91 99 Blood Pressure Source Blood Pressure Position Blood Pressure Location Pulse Ox 94 96 94 Oxygen Delivery Method Room Air Oxygen Flow Rate (L/min) 02/10/25 18:00 02/10/25 18:00 02/10/25 18:30 Temperature 98.6 F Temperature Source Oral Pulse Rate 78 Respiratory Rate 18 Blood Pressure 158/96 H 141/78 H 139/90 H Blood Pressure Mean 116 99 106 Blood Pressure Source Blood Pressure Position Blood Pressure Location Pulse Ox 96 Oxygen Delivery Method Room Air Oxygen Flow Rate (L/min) 02/10/25 19:00 02/10/25 21:07 02/10/25 22:42 Temperature 99.2 F H 97.9 F Temperature Source Oral Oral Pulse Rate 107 H 92 Respiratory Rate 16 18 Blood Pressure 146/77 H 126/62 H Blood Pressure Mean 100 83 Blood Pressure Source Monitor Blood Pressure Position Sitting Blood Pressure Location Left Arm Pulse Ox 93 95 92 Oxygen Delivery Method Room Air Nasal Cannula Room Air Oxygen Flow Rate (L/min) 2 02/10/25 23:20 02/11/25 08:43 Temperature 98.2 F 97.8 F Temperature Source Oral Temporal Pulse Rate 77 90 Respiratory Rate 18 18 Blood Pressure 155/82 H 132/58 H Blood Pressure Mean 106 82 Blood Pressure Source Monitor Blood Pressure Position Supine Blood Pressure Location Right Arm Pulse Ox 94 97 Oxygen Delivery Method Room Air Room Air Oxygen Flow Rate (L/min) Weight Weight: 97.522 kg Body Mass Index (BMI) 30.8 EEG Results Procedure Details EEG Procedure Details: ADRIANNA SHAH is a 64 year old F with a past medical history of , who presents for evaluation of Electroencephalogram on DATE at TIME Lab / Micro Data 02/11/25 06:13 02/11/25 06:13 Labs: Laboratory Results - last 24 hr 02/10/25 10:55: WBC 11.2 H, RBC 3.23 L, Hgb 9.7 L, Hct 29.4 L, MCV 91.0, MCH 30.0, MCHC 33.0, RDW Std Deviation 48.7 H, RDW Coeff of Tavia 14.5, Plt Count 159, MPV 12.2 H, Immature Gran % (Auto) 1.100 H, Neut % (Auto) 69.5, Lymph % (Auto) 12.2 L, Hanson % (Auto) 15.4 H, Eos % (Auto) 1.3, Baso % (Auto) 0.5, Absolute Neuts (auto) 7.8 H, Absolute Lymphs (auto) 1.37, Nucleated RBC % 0, Atypical Lymphocytes 1+, Platelet Estimate A, PT 14.8, INR 1.1, APTT 25.3, Sodium 131 L, Potassium 3.4, Chloride 95 L, Carbon Dioxide 26.8, Anion Gap 10, BUN 10, Creatinine 0.81, Estim Creat Clear Calc 84.62, Est GFR (MDRD) Non-Af 82, BUN/Creatinine Ratio 12.6, Glucose 111 H, Calcium 8.4, Troponin T High Sens 9 02/10/25 13:00: Troponin T Hi Sens 2 Hr 8 02/10/25 14:30: Urine Opiates Screen NEGATIVE, U Buprenorphine Qual NEGATIVE, Ur Oxycodone Screen NEGATIVE, Urine Methadone Screen NEGATIVE, Urine Fentanyl Screen NEGATIVE, Ur Barbiturates Screen NEGATIVE, Ur Phencyclidine Scrn NEGATIVE, Ur Amphetamines Screen NEGATIVE, U Benzodiazepines Scrn NEGATIVE, Urine Cocaine Screen NEGATIVE, U Cannabinoids Screen NEGATIVE 02/10/25 15:20: Troponin T Hi Sens 4Hr 7 02/11/25 06:13: WBC 11.8 H, RBC 3.57 L, Hgb 10.7 L, Hct 32.0 L, MCV 89.6, MCH 30.0, MCHC 33.4, RDW Std Deviation 47.8 H, RDW Coeff of Tavia 14.4, Plt Count 247, MPV 12.1 H, Immature Gran % (Auto) 3.000 H, Neut % (Auto) 67.8, Lymph % (Auto) 14.1 L, Hanson % (Auto) 12.8 H, Eos % (Auto) 1.8, Baso % (Auto) 0.5, Absolute Neuts (auto) 8.0 H, Absolute Lymphs (auto) 1.67, Nucleated RBC % 0, Atypical Lymphocytes 1+, Reactive Lymphocytes 1+, Platelet Estimate A, Plt Morphology Comment GIANT, Spherocytes 1+ H, Sodium 137, Potassium 3.3, Chloride 99, Carbon Dioxide 25.5, Anion Gap 12, BUN 8, Creatinine 0.72, Estim Creat Clear Calc 101.14, Est GFR (MDRD) Non-Af 95, BUN/Creatinine Ratio 11.0, Glucose 120 H, Calcium 8.9, Triglycerides 156, Cholesterol 124, LDL Cholesterol, Calc 72, VLDL Cholesterol 31, HDL Cholesterol 21 L, Cholesterol/HDL Ratio 5.90 Imaging Radiology Impression Chest X-Ray 02/10/25 10:32 IMPRESSION: No Acute Findings. Reading Location: [id number] Head/Neck CTA 02/10/25 10:32 IMPRESSION: No acute large vessel occlusion. No intracranial high-grade stenosis. Extensive atherosclerosis of the left carotid bulb with moderate to severe stenosis at the proximal left ICA. Reading Location: [facility] Brain MRI 02/10/25 19:00 IMPRESSION: No acute intracranial finding. Chronic changes as described. Reading Location: [facility] Active Medications Active Medications Active Medications: Current Medications Generic Name Dose Route Start Last Admin Trade Name Freq PRN Reason Stop Dose Admin Acetaminophen 650 mg 02/10/25 19:00 Acetaminophen 325 Mg Tablet PO Q6H PRN PRN Pain 1-10 Or Fever>100.7 Albuterol Sulfate 2.5 mg 02/10/25 19:13 Albuterol 2.5 Mg/3 Ml Vial.Neb. INHALATION Q4H PRN wheezing Aspirin 81 mg 02/11/25 08:00 02/11/25 08:42 Aspirin 81 Mg Tab.Chew PO 81 mg BREAKFAST ALICE Administration Atorvastatin Calcium 80 mg 02/10/25 22:00 02/10/25 21:48 Atorvastatin Calcium 80 Mg Tablet PO 80 mg QHS ALICE Administration Cholecalciferol 25 mcg 02/11/25 10:00 02/11/25 08:42 Cholecalciferol (Vit D3) 25 Mcg Tablet (1,000 Units) PO 25 mcg DAILY ALICE Administration Ciprofloxacin HCl 500 mg 02/10/25 22:00 02/11/25 08:42 Ciprofloxacin 500 Mg Tablet PO 02/15/25 23:59 500 mg BID ALICE Administration Enoxaparin Sodium 40 mg 02/11/25 10:00 02/11/25 08:42 Enoxaparin 40 Mg/0.4 Ml Syringe SC 40 mg DAILY ALICE Administration Hydralazine HCl 5 mg 02/10/25 19:00 Hydralazine 20 Mg/Ml Vial IV 02/11/25 19:00 Q30M PRN maintain BP parameters with HR <60 Sodium Chloride 250 mls @ 15 mls/hr 02/10/25 21:07 IV .[id number] PRN Saline Flush Sodium Chloride 250 mls @ 15 mls/hr 02/10/25 21:07 IV .[id number] PRN Additional IVPB Infusion Labetalol HCl 10 - 20 mg 02/10/25 19:00 Labetalol 20 Mg/4 Ml Vial IV 02/11/25 19:00 Q10M PRN PRN maintain BP parameters with HR >/=60 Losartan Potassium 100 mg 02/11/25 10:00 02/11/25 08:42 Losartan Potassium 100 Mg Tablet PO 100 mg DAILY ALICE Administration Protocol Ondansetron HCl 4 mg 02/10/25 19:00 Ondansetron Odt 4 Mg Tablet PO TID PRN nausea and vomiting Ondansetron HCl 4 mg 02/10/25 19:00 Ondansetron 4 Mg/2 Ml Vial IV Q8H PRN PRN NAUSEA/VOMITING Sodium Chloride 10 - 40 ml 02/10/25 21:07 0.9% Saline Lock 10 Ml Syringe IV UD PRN SALINE FLUSH Vancomycin HCl 125 mg 02/11/25 00:00 02/11/25 06:35 Vancomycin 125 Mg/5 Ml Susp Po.Syringe PO 02/25/25 23:59 125 mg Q6 ALICE Administration NIHSS NIHSS Nursing Documentation NIHSS Nursing Documentation: NIHSS: Ischemic Stroke/TIA Start: 02/10/25 19:00 Text: For ICU Patients: NIH sroke scale at Status: Complete presentation and every 2 hours or with change in RN caregiver Freq: [id number] Protocol: Activity Type Activity Date Activity User E-sign Co-sign Detail Recorded Client Recorded Date Recorded By Document 02/10/25 19:35 [facility] [id number] 02/10/25 21:07 [facility] 02/10/25 19:35 NIH Stroke Scale [NIHSS] A score of 0 is normal or asymptomatic . Total possible score is 42. Inpatient: RN or Physician to activate a stroke alert for onset of new stroke symptoms or with NIHSS increase >/= 3 points. Following change in neurological status, NIHSS will be performed per physician order or more frequently PRN. -1a. Level of Consciousness 0 - Alert; keenly responsive -1b. LOC Questions 1 - Answers ONE question correctly -1c. LOC Commands 0 - Performs BOTH tasks correctly -2. Best Gaze 0 - Normal -3. Visual 0 - No visual loss -4. Facial Palsy 0 - Normal symmetrical movements -5a. Left Arm 0 - No drift; arm holds 90 ( or 45) degrees for full 10 seconds -5b. Right Arm 0 - No drift; arm holds 90 ( or 45) degrees for full 10 seconds -6a. Left Leg 0 - No drift; leg holds 30- degree position for full 5 seconds -6b. Right Leg 0 - No drift; leg holds 30- degree position for full 5 seconds -7. Limb Ataxia 0 - Absent -8. Sensory 0 - Normal; no sensory loss -9. Best Language 0 - No aphasia; normal -10. Dysarthria 0 - Normal -11. Extinction and Inattention 0 - No abnormality -Total 1 Query Text:A score of 0 is normal or asymptomatic. Total possible score is 42 . ED: Notify Physician for NIHSS increase by > / = 3 points. Inpatient: RN or Physician to activate a stroke alert for NIHSS increase of > / = 3 points. Coma Scale [Assess] -Eye Opening Spontaneous -Motor Obeys Commands -Verbal Oriented [Total] -Coma Scale Total 15 NIHSS: Ischemic Stroke/TIA Start: 02/10/25 19:00 Text: For PCU Patients: NIH and Neuro Check every 4 Status: Active hours, PRN and with change in RN caregiver. Freq: Q4H Protocol: Activity Type Activity Date Activity User E-sign Co-sign Detail Recorded Client Recorded Date Recorded By Document 02/11/25 03:20 [facility] [id number] 02/11/25 04:00 [facility] 02/11/25 03:20 NIH Stroke Scale [NIHSS] A score of 0 is normal or asymptomatic . Total possible score is 42. Inpatient: RN or Physician to activate a stroke alert for onset of new stroke symptoms or with NIHSS increase >/= 3 points. Following change in neurological status, NIHSS will be performed per physician order or more frequently PRN. -1a. Level of Consciousness 0 - Alert; keenly responsive -1b. LOC Questions 0 - Answers BOTH questions correctly -1c. LOC Commands 0 - Performs BOTH tasks correctly -2. Best Gaze 0 - Normal -3. Visual 0 - No visual loss -4. Facial Palsy 0 - Normal symmetrical movements -5a. Left Arm 0 - No drift; arm holds 90 ( or 45) degrees for full 10 seconds -5b. Right Arm 0 - No drift; arm holds 90 ( or 45) degrees for full 10 seconds -6a. Left Leg 0 - No drift; leg holds 30- degree position for full 5 seconds -6b. Right Leg 0 - No drift; leg holds 30- degree position for full 5 seconds -7. Limb Ataxia 0 - Absent -8. Sensory 0 - Normal; no sensory loss -9. Best Language 0 - No aphasia; normal -10. Dysarthria 0 - Normal -11. Extinction and Inattention 0 - No abnormality -Total 0 Query Text:A score of 0 is normal or asymptomatic. Total possible score is 42 . ED: Notify Physician for NIHSS increase by > / = 3 points. Inpatient: RN or Physician to activate a stroke alert for NIHSS increase of > / = 3 points.
--- NOTE | 2025-02-11 12:22 | CASEMGMT ---
Social Work PHQ-9 not completed as pt did not have a stroke. FABIO Garvin
[2025-02-11 14:00] VITALS: BP 132/78; PULSE 87; RESP 18; TEMP 36.1; O2SAT 98
--- NOTE | 2025-02-11 14:42 | PCM.DC.SUM ---
Providers Date of Admission: 02/10/25 Date of Discharge: 02/11/25 Primary Care Physician: Dr. Cooper Rivers MD Consultations 02/10/25 19:00 Consult: Tele-Neurology Routine Consulting Provider: [facility] Reason for Consult: Acute Ischemic Stroke/TIA EMERGENT Consult: No MD Notified: Yes Date Notified: 02/10/25 Time Notified: 13:07 Method of Notification: ED Physician Initiated Nursing Unit Staff Notify [facility] of Tele-Neurology Consult: Yes Reason For Visit: DYSARTHRIA. CONFUSION Diagnosis Discharge Diagnosis (1) Slurred speech: Status: Acute Code(s): R47.81 - Slurred speech Medications at Discharge Home Medications ondansetron 4 mg disintegrating tablet 4 mg PO TID PRN nausea and vomiting #21 tabs 11/03/24 cholecalciferol (vitamin D3) 25 mcg (1,000 unit) capsule (Vitamin D3) 25 mcg PO DAILY 11/14/24 coenzyme Q10 100 mg capsule (Co Q-10) 100 mg PO DAILY 11/14/24 losartan 100 mg tablet 100 mg PO DAILY 11/14/24 simvastatin 20 mg tablet 20 mg PO QHS 11/14/24 zolpidem 12.5 mg tablet,extended release,multiphase 12.5 mg PO QHS PRN insomnia 11/14/24 albuterol sulfate 90 mcg/actuation aerosol inhaler 2 puff inhalation Q4H PRN wheezing 02/06/25 ciprofloxacin HCl 500 mg tablet 500 mg PO BID #12 tabs 02/09/25 vancomycin 125 mg capsule 125 mg PO Q6H 16 days #64 caps 02/09/25 Hospital Course Operations None Procedures EKG and - (CT brain/CTA head neck/MRI brain/chest x-ray) Summary of Care Provided Minutes Spent on Discharge: 25 Hospital Course: Mrs. Barney is a 64-year-old white female who presented to the emergency department at [facility] on 02/10/2025 with a chief complaint of acute confusion and slurred speech. Patient had a recent hospitalization here for sepsis related to urinary tract infection and obstructive nephrolithiasis. She was discharged on 02/09/2025 and represented to the emergency department due to the above. The stone was not able to be extracted but a stent was placed. She also developed C. difficile and was discharged on oral vancomycin. Clinically the patient was doing much better and was discharged home however her does report she was not quite at her baseline with regards to her strength. She evidently went home and went to bed and got up and was confused so they brought her back in for reevaluation. Stroke alert was initiated. CT of the head neck was unremarkable. CTA of the head and neck did not show LVO or aneurysm but does show extensive atherosclerotic disease in the left carotid bulb with moderate to severe stenosis in the proximal left ICA. Given this we started aspirin and she was maintained on a statin. Lipid panel was obtained and her LDL was found to be 72 on her current simvastatin. Stroke workup was pursued more extensively with an MRI and echocardiogram. MRI showed no acute intracranial findings with chronic changes consistent with chronic microvascular ischemic changes. The echocardiogram showed an EF of 65% with stage I diastolic dysfunction and a negative bubble study. She was seen by neurology and they felt that this was most likely related to delirium given her recent hospitalization and abnormal sleep patterns while hospitalized. Delirium precautions and promotion of sleep at night, avoiding dehydration and constipation were discussed with the patient by neurology and no further workup was recommended. They signed off. It was recommended she be discharged home. Given the findings on the CT we did start her on a baby aspirin 81 mg daily and I recommend that she follow-up with Dr. Johnson from vascular surgery to have this further evaluated and monitored closely. I do anticipate she will need carotid Dopplers to assess further the extensiveness of any stenosis present. She is also to follow-up with her primary care physician and continue her antibiotics as ordered at the time of discharge from her hospitalization ending on 02/09/2025. She also should follow-up with her primary care physician within the next 1 to 2 weeks. Discharge diagnoses: Acute confusion and slurred speech secondary to delirium-resolved Left carotid artery stenosis Recent pyelonephritis Active C. difficile colitis Nephrolithiasis with a renal pelvis Essential hypertension Hyperlipidemia Asthma GERD History of tobacco abuse Obesity Physical Exam Const alert, oriented x3, no apparent distress, no limitations and well nourished; Negative for average body habitus Constitutional Narrative: Middle-aged, obese, white female, lying in bed, appears comfortable, at bedside, watching television, nontoxic-appearing General Appearance: cooperative, comfortable, well kempt and well developed Exam Limitations: no limitations Nutritional Appearance: obese HEENT normocephalic, head/scalp atraumatic and moist oral mucous membranes Resp normal respiratory effort, no retractions, no use of accessory muscles and clear to auscultation bilaterally Auscultation: Negative for rales, rhonchi or wheezes Cardio regular rate, regular rhythm, S1 normal heart sound, S2 normal heart sound, no murmurs, no rub, no gallops and no clicks GI normal to inspection, nondistended, normoactive bowel sounds, soft to palpation and non-tender Extremity no clubbing, cyanosis or edema Extremity Narrative: 2+ pedal and radial pulses Neuro oriented x3, moves all extremities and no focal motor deficits Speech: speech normal Psych affect normal Psych Narrative: Very pleasant, makes good eye contact Weight / BMI Weight Weight: 97.522 kg Body Mass Index (BMI) 30.8 ABG / Lab / Microbiology Data 02/11/25 06:13 02/11/25 06:13 Laboratory: Laboratory Results - last 24 hr 02/10/25 14:30: Urine Opiates Screen NEGATIVE, U Buprenorphine Qual NEGATIVE, Ur Oxycodone Screen NEGATIVE, Urine Methadone Screen NEGATIVE, Urine Fentanyl Screen NEGATIVE, Ur Barbiturates Screen NEGATIVE, Ur Phencyclidine Scrn NEGATIVE, Ur Amphetamines Screen NEGATIVE, U Benzodiazepines Scrn NEGATIVE, Urine Cocaine Screen NEGATIVE, U Cannabinoids Screen NEGATIVE 02/10/25 15:20: Troponin T Hi Sens 4Hr 7 02/11/25 06:13: WBC 11.8 H, RBC 3.57 L, Hgb 10.7 L, Hct 32.0 L, MCV 89.6, MCH 30.0, MCHC 33.4, RDW Std Deviation 47.8 H, RDW Coeff of Tavia 14.4, Plt Count 247, MPV 12.1 H, Immature Gran % (Auto) 3.000 H, Neut % (Auto) 67.8, Lymph % (Auto) 14.1 L, [place] % (Auto) 12.8 H, Eos % (Auto) 1.8, Baso % (Auto) 0.5, Absolute Neuts (auto) 8.0 H, Absolute Lymphs (auto) 1.67, Nucleated RBC % 0, Atypical Lymphocytes 1+, Reactive Lymphocytes 1+, Platelet Estimate A, Plt Morphology Comment GIANT, Spherocytes 1+ H, Sodium 137, Potassium 3.3, Chloride 99, Carbon Dioxide 25.5, Anion Gap 12, BUN 8, Creatinine 0.72, Estim Creat Clear Calc 101.14, Est GFR (MDRD) Non-Af 95, BUN/Creatinine Ratio 11.0, Glucose 120 H, Calcium 8.9, Triglycerides 156, Cholesterol 124, LDL Cholesterol, Calc 72, VLDL Cholesterol 31, HDL Cholesterol 21 L, Cholesterol/HDL Ratio 5.90 Radiography Diagnostic Testing: Radiology Impression Brain MRI 02/10/25 19:00 IMPRESSION: No acute intracranial finding. Chronic changes as described. Reading Location: [id number] Echocardiogram 02/10/25 19:00 Interpretation Summary Mild concentric left ventricular hypertrophy. The LV ejection fraction is 65 %. Stage 1 diastolic dysfunction. Bubble contrast study is negative for PFO/ASD. Ordering Physician: Praveen Wayne Referring Physician: Praveen Wayne Performed By: Prasanna Calixto RCS D/C Instructions Discharge Diet: Low fat / Low cholesterol Discharge Activity: Return to Normal Activity DC O2, CPAP, BIPAP Needs Home O2 Discharge instructions: No Meaningful Use Info Meaningful Use Meaningful Use Diagnoses (Choose all that apply): None applicable Ischemic Stroke Statin Dosing Therapy Reference: STATIN DOSE THERAPY REFERENCE: * Patients > 75 years receive moderate or high dose statin therapy. * Patients 75 years or YOUNGER should receive HIGH intensity statin dose unless contraindicated. You will be required to document reason for non-treatment if statin daily dose does not meet guidelines. HIGH DOSE STATIN THERAPY DAILY Atorvastatin > than or = to 40 mg Rosuvastatin > than or = to 20 mg Amlodipine + Atorvastatin > than or = to 2.5/40 mg Ezetimibe + Simvastatin 10/80 mg Simvastatin 80mg Discharge Plan Admission Admit Date/Time: 02/10/25 13:04 Primary Reason for Your Visit: Confusion/slurred speech Attending Provider: Nancy Tamayo Primary Care Provider: Cooper Rivers Consulting Providers: Russ Glez; Uzma Escobar; Kerry Carver; Deandra Bonner; Ada Tatum; Antoni Ross; Kiki Steele; Ricky Dykes; Maurice Carrillo; Romero King; Jaylyn Carranza; Bradley Patel; Mariah Healy; Criss Hicks; Neil Nicholson; Lon Joseph; Arline Beverly; Taz Olvera; Hafsa Tamayo; Sumeet Gillespie; Praveen Wayne Instructions Additional Instructions / Restrictions: 1. The CAT scan of your head and neck did show some blockages in the L neck arteries so I do recommend follow-up with vascular surgery but no changes need to occur at this time other than starting aspirin 81 mg daily. Please call Dr. Johnson's office as noted below so he can follow-up with those blockages. Discharge Orders/Prescriptions Prescriptions: Continued simvastatin 20 mg tablet 20 mg PO QHS losartan 100 mg tablet 100 mg PO DAILY coenzyme Q10 [Co Q-10] 100 mg capsule 100 mg PO DAILY cholecalciferol (vitamin D3) [Vitamin D3] 25 mcg (1,000 unit) capsule 25 mcg PO DAILY zolpidem 12.5 mg tablet,ext release multiphase 12.5 mg PO QHS PRN (Reason: insomnia) ondansetron 4 mg tablet,disintegrating 4 mg PO TID PRN (Reason: nausea and vomiting) Qty: 21 0RF albuterol sulfate 90 mcg/actuation HFA aerosol inhaler 2 puff inhalation Q4H PRN (Reason: wheezing) ciprofloxacin HCl 500 mg tablet 500 mg PO BID Qty: 12 0RF Patient Comments: FOR 6 DAYS vancomycin 125 mg capsule 125 mg PO Q6H 16 Days Qty: 64 0RF Patient Comments: FOR 16 DAYS Referrals / Follow Up: Praveen Johnson MD [Med Staff - Active Staff] - Within 1 Month (Please call on Thursday to set up follow-up appointment based on neck arteries) Cooper Rivers MD [Primary Care Provider] - Within 2 Weeks Disposition Disposition (needs filled in before D/C Order can be placed): Home, Self Care Charges/Coding Visit Charges Inpatient E&M: 24761 Disch Hosp
--- NOTE | 2025-02-11 15:42 | CASEMGMT ---
STAR MATSON Readmission Chart Review Index Admission: 02/06/25-02/09/25. Dx: Sepsis, Lt Pyelonephritis Current: 02/10/25. Dx: Dysarthria, Confusion From the index admission, the pt discharged home with her SO. Patient re-presents to [facility] the day after DC with slurred speech. Pt stroke workup has been (-) and the pt has an order for DC placed. See DC Summary. STAR MATSON to the pt room at this time. Pt's SO at bedside. Pt sitting up in the bed and is A&Ox4. Pt states that she was able to get her new prescriptions and take them as ordered. Pt states that there was not enough time to follow up with her PCP or the Urologist due to the turnaround time. Moving forward, the pt states that she feels safe returning home with her SO today. Pt was cleared by PT with a 6-Click score of 24. Noted ST is recommending additional therapy. However, pt declines the need at this time. Pt denies OP ST. Pt denies further needs at this time and states that she is ready for DC home with her SO. Grecia FORREST RN, CM
== END 2025-02-11 15:52 | disposition home or self-care (01) | DRG 92 ==
LOC: ED 12:49 → PCU 14:48
PROVIDERS: Emergency Provider Emergency Medicine; PCP Family Medicine; Visit Provider Internal Medicine
DX: R47.81 Slurred speech (principal); A04.72 Enterocolitis due to Clostridium difficile, not specified as recurrent; N12 Tubulo-interstitial nephritis, not specified as acute or chronic; B96.1 Klebsiella pneumoniae [K. pneumoniae] as the cause of diseases classified elsewhere; I10 Essential (primary) hypertension; J45.909 Unspecified asthma, uncomplicated; I65.22 Occlusion and stenosis of left carotid artery; E66.811 Obesity, class 1; E78.5 Hyperlipidemia, unspecified; F17.210 Nicotine dependence, cigarettes, uncomplicated; K21.9 Gastro-esophageal reflux disease without esophagitis; R41.0 Disorientation, unspecified; N20.0 Calculus of kidney; Z96.0 Presence of urogenital implants; R29.898 Other symptoms and signs involving the musculoskeletal system; Z68.33 Body mass index [BMI] 33.0-33.9, adult; Z90.49 Acquired absence of other specified parts of digestive tract; Z86.19 Personal history of other infectious and parasitic diseases; Z87.440 Personal history of urinary (tract) infections; Z79.899 Other long term (current) drug therapy
CPT/HCPCS: 36415; 70450; 70496; 70498; 70551; 71045; 80048; 80061; 80307; 82962; 84484; 85025; 85610; 85730; 92523; 93005; 93306; 94762; 97162; 97166; 99285; Q9957; Q9967; A4216; J0744

== ENCOUNTER → 2025-02-16 | Outpatient (CLI) | payer BC, SELFPAY | END | disposition home or self-care (01) | LOC: LABSPEC 12:37 | PROVIDERS: PCP Family Medicine; Referring Provider Urology; Visit Provider Urology | DX: N20.0 Calculus of kidney (principal) | CPT/HCPCS: 87086; 87088 ==

== ENCOUNTER 2025-03-03 10:40 | Day surgery (SDC) | payer BC, SELFPAY ==
--- NOTE | 2025-02-21 21:44 | PAT.ANE_ITS ---
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 When Was Last Pacemaker Check QUESTION #4 FULL TEXT: You/Your Family Experience fever (hyperthermia) with Anesthesia Last Oral Intake Last Oral intake: Last Oral Intake NPO since Meds taken in AM with sips of water? Meds patient instructed to take am of surgery PONV PONV - ear mold laboratory technician: PONV - ear mold laboratory technician Female Yes 02/21/25 10:34 HX of Motion Sickness No 02/21/25 10:34 HX of N/V After Surgery No 02/21/25 10:34 Non-Smoker No 02/21/25 10:34 Duration of Surgery greater Yes 02/21/25 10:34 than 60 minutes Number of Risk Factors 2 02/21/25 10:34 PONV Score Moderate Risk 02/21/25 10:34 Height & Weight Height & Weight: Anesthesia: Height & Weight Height 5 ft 10 in 02/11/25 13:07 Respiratory Assessment Respiratory Assessment - ear mold laboratory technician: Respiratory Tract Infection Hx - ear mold laboratory technician Hx Respiratory Tract Infection No 02/21/25 10:34 STOP Sleep Apnea STOP Sleep Apnea - ear mold laboratory technician: STOP Sleep Apnea - ear mold laboratory technician Hx Hypertension Yes: CONTROLLED WITH MEDS 02/21/25 10:34 Hx Sleep Apnea No 02/21/25 10:34 CPAP BIPAP Do you snore loudly (louder No 02/21/25 10:34 than talking or can be heard Do you often feel tired/ No 02/21/25 10:34 fatigued/ sleepy during daytime? Has anyone observed you stop No 02/21/25 10:34 breathing during sleep? STOP Results Negative 02/21/25 10:34 QUESTION #5 FULL TEXT : Do you snore loudly (louder than talking or can be heard through closed doors)? 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 Use History - ear mold laboratory technician: Tobacco Use History - ear mold laboratory technician Tobacco Use Smoking Status Current every day smoker 02/21/25 10:34 Hx Tobacco Use Yes 02/21/25 10:34 Years Smoking Packs Smoked per Day Smoking Cessation Date was within the last 15 years Hx Smoking Cessation Date Hx Smoking Cessation Counseling Hematologic Medial History Hematologic Hx - ear mold laboratory technician: Hematologic Medical Hx - heel sorter Hx of Blood Transfusion Yes 02/21/25 10:34 Hx of Transfusion in last 3 No 02/21/25 10:34 Months Date of Last Transfusion (if within last 3 months) Ever experience any problems No 02/21/25 10:34 with transfusion(s)? Specify any problems Hx of Preganancy in last 3 No 02/21/25 10:34 Months Nurse Filling Out Transfusion [id number] 02/21/25 10:34 & Questions: Date: 02/21/25 02/21/25 10:34 Time: 10:36 02/21/25 10:34 Patient unable to answer at this time (ie. confused, unrespo /Reproduction History /Reproductive History - ear mold laboratory technician: /Reproductive Hx- ear mold laboratory technician Hx Now Gestational Age (in weeks): EDC: Hx Hx Para Hx Section SAB No 11/14/24 12:38 PFSH Medical History Shortness of breath on exertion History of stress test Obesity (BMI 30.0-34.9) Proximal humerus fracture Wears glasses High cholesterol Gastric reflux Smoker Chronic cough Hypertension Home Medications ?Medication ?Instructions ?Recorded ?Last Taken ?Type ondansetron 4 mg disintegrating 4 mg PO TID PRN nausea and 11/03/24 Unknown Rx tablet vomiting #21 tabs cholecalciferol (vitamin D3) 25 25 mcg PO DAILY 11/20/24 History mcg (1,000 unit) capsule (Vitamin D3) coenzyme Q10 100 mg capsule (Co 100 mg PO DAILY 11/20/24 History Q-10) losartan 100 mg tablet 100 mg PO DAILY 11/14/2402/08 History simvastatin 20 mg tablet 20 mg PO QHS 11/14/24 History zolpidem 12.5 mg tablet,extended 12.5 mg PO QHS PRN in somnia 11/14/24 11/20/24 History release,multiphase albuterol sulfate 90 mcg/actuation 2 puff inhalation Q 4H PRN wheezing 02/06/25 Unknown History aerosol inhaler vancomycin 125 mg capsule 125 mg PO Q6H 16 days #64 ca ps 02/09/25 Unknown Rx aspirin 81 mg tablet,delayed 81 mg PO DAILY 02/21/25 U nknown History release Allergy/AdvReac Type Severity Reaction Status Date / Time No Known Allergies Allergy Verified 02/21/25 10:30 Family History (Updated 02/10/25 @ 13:[address] Praveen Wayne DO) Father CVA (cerebral vascular accident) Surgical History S/p reverse total shoulder arthroplasty History of History of cholecystectomy Social History Smoking Status: Current every day smoker tobacco type: cigarettes Audit: Pertinent Findings Pertinent Findings EKG Perinent findings: February 10, 2025. Normal sinus rhythm. Echo (EF%) pertinent findings: February 11, 2025. EF is 65%. No aortic stenosis noted. Recommendation Anesthesia Recommendation Anesthesia recommendation: OPTIMIZED for anesthesia
[2025-03-03] VITALS (7 sets, daily range): BP systolic 118–170; BP diastolic 68–88; PULSE 94–101; RESP 16–18; TEMP 36.2–36.4; O2SAT 94–100; BMI 32.0
--- NOTE | 2025-03-03 07:03 | PCM.HP.STD ---
HPI - General General Date of Service: 03/03/25 Chief Complaint: Left kidney stones HPI Narrative ADRIANNA SHAH, is a 64 F who presents for treatment of left kidney stones with shockwave lithotripsy may have to do a laser and she may need a stent. [facility] Medical History Shortness of breath on exertion History of stress test Obesity (BMI 30.0-34.9) Proximal humerus fracture Wears glasses High cholesterol Gastric reflux Smoker Chronic cough Hypertension Home Medications ?Medication ?Instructions ?Recorded ?Last Taken ?Type ondansetron 4 mg disintegrating 4 mg PO TID PRN nausea and 11/03/24 Unknown Rx tablet vomiting #21 tabs cholecalciferol (vitamin D3) 25 25 mcg PO DAILY 11/14/24 11/20/24 History mcg (1,000 unit) capsule (Vitamin D3) coenzyme Q10 100 mg capsule (Co 100 mg PO DAILY 11/14/24 11/20/24 History Q-10) losartan 100 mg tablet 100 mg PO DAILY 11/14/24 11/20/24 History simvastatin 20 mg tablet 20 mg PO QHS 11/14/24 11/20/24 History zolpidem 12.5 mg tablet,extended 12.5 mg PO QHS PRN insomnia 11/14/24 11/20/24 History release,multiphase albuterol sulfate 90 mcg/actuation 2 puff inhalation Q4H PRN wheezing 02/06/25 Unknown History aerosol inhaler vancomycin 125 mg capsule 125 mg PO Q6H 16 days #64 caps 02/09/25 Unknown Rx aspirin 81 mg tablet,delayed 81 mg PO DAILY 02/21/25 Unknown History release Allergy/AdvReac Type Severity Reaction Status Date / Time No Known Allergies Allergy Verified 02/21/25 10:30 Family History Father CVA (cerebral vascular accident) Surgical History S/p reverse total shoulder arthroplasty History of History of cholecystectomy Social History (Updated 02/28/25 @ 10:48 by Hnah Murdock) Smoking Status: Light Smoker (<10/day)
[2025-03-03] MEDS: Lactated Ringers 1,000 ML 15 ML IV (11:10)
--- NOTE | 2025-03-03 11:31 | PRE.ANES_ITS ---
ASA Classification* ASA Classification ASA Classification: 2 Assessment & Plan Anesthesia* Anesthesia Assessment Anesthesia Assessment: Discussed sedation and/or anesthesia options, risks, benefits, and alternatives with patient/parents/legal guardian/POA. Questions invited. The patient/parents/legal guardian/POA seems to understand and agrees to proceed with anesthesia plan. Reviewed the physical assessment, medical history, allergy history and patient home medications list prior to surgery/procedure/anesthetic and documented any changes. Performed airway and anesthesia risk assessments. Anesthesia Type Anesthesia Type: General History Source History Obtained from:: Patient and Chart Anesthesia Focused Assessment* Temperature: 97.3 F Pulse Rate: 101 Blood Pressure: 170/88 Respiratory Rate: 18 Pulse Ox: 100 Oxygen Delivery Method: Room Air Airway Assessment Mouth opens: >3 cm Mallampati Score: III Teeth Condition: Missing (The patient is missing several teeth.) Neck Range of motion (ROM): Limited ROM (Slight Decrease) Labs Anesthesia Preop lab: CBC WBC 11.8 K/mm3 (4.4-11.0) H 02/11/25 06:13 5 RBC 3.57 M/mm3 (4.2-5.4) L 02/11/25 06:13 02/11/25 Hgb 10.7 g/dL (12.0-15.0) L 02/11/25 06:13 5 Hct 32.0 % (37-47) L 02/11/25 06:13 02/11/25 Plt Count 247 K/mm3 (150-450) 02/11/25 06:13 02/11/25 CHEMISTRY Potassium 3.3 mmol/L (3.3-5.1) 02/11/25 06:13 02/11/25 Sodium 137 mmol/L (133-145) 02/11/25 06:13 02/11/25 Magnesium 1.7 mg/dL (1.5-2.2) 11/15/24 16:21 11/15/24 BUN 8 mg/dL (4-19) 02/11/25 06:13 02/11/25 Creatinine 0.72 mg/dL (0.70-1.20) 02/11/25 06:13 02/11/25 Glucose 120 mg/dL (70-99) H 02/11/25 06:13 02/11/25 POC Glucose 106 mg/dL (74-106) 02/10/25 10:30 02/10/25 COAG PT 14.8 SECONDS (11.7-14.9) 02/10/25 10:55 Pre-Assessment Diagnosis/Proposed Procedure Planned Operative Procedure(s): LEFT ESWL Anesthesia History 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 When Was Last Pacemaker Check QUESTION #4 FULL TEXT: You/Your Family Experience fever (hyperthermia) with Anesthesia Last Oral Intake Last Oral intake: Last Oral Intake NPO since 17:00 03/03/25 11:03 Meds taken in AM with sips of Yes 03/03/25 11:03 water? Meds patient instructed to take am of surgery Any additional information?: Yes Meds taken in AM with sips of water?: Yes PONV PONV - hydraulic miner blasting: PONV - hydraulic miner blasting Female Yes 02/21/25 10:34 HX of Motion Sickness No 02/21/25 10:34 HX of N/V After Surgery No 02/21/25 10:34 Non-Smoker No 02/21/25 10:34 Duration of Surgery greater Yes 02/21/25 10:34 than 60 minutes Number of Risk Factors 2 02/21/25 10:34 PONV Score Moderate Risk 02/21/25 10:34 Height & Weight Height & Weight: Anesthesia: Height & Weight Height 5 ft 7 in 03/03/25 11:03 Weight: 92.8 kg 03/03/25 11:03 Body Mass Index (BMI) 32.0 03/03/25 11:03 Respiratory Assessment Respiratory Assessment - hydraulic miner blasting: Respiratory Tract Infection Hx - hydraulic miner blasting Hx Respiratory Tract Infection No 02/21/25 10:34 STOP Sleep Apnea STOP Sleep Apnea - hydraulic miner blasting: STOP Sleep Apnea - hydraulic miner blasting Hx Hypertension Yes: CONTROLLED WITH MEDS 02/21/25 10:34 Hx Sleep Apnea No 02/21/25 10:34 CPAP BIPAP Do you snore loudly (louder No 02/21/25 10:34 than talking or can be heard Do you often feel tired/ No 02/21/25 10:34 fatigued/ sleepy during daytime? Has anyone observed you stop No 02/21/25 10:34 breathing during sleep? STOP Results Negative 02/21/25 10:34 QUESTION #5 FULL TEXT : Do you snore loudly (louder than talking or can be heard through closed doors)? 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 Specify any problems Hx of Preganancy in last 3 No 02/21/25 10:34 Months Nurse Filling Out Transfusion [email or web address] 02/21/25 10:34 & Questions: Date: 02/21/25 02/21/25 10:34 Time: 10:36 02/21/25 10:34 Patient unable to answer at this time (ie. confused, unrespo /Reproduction History /Reproductive History - hydraulic miner blasting: /Reproductive Hx- hydraulic miner blasting Hx Now Gestational Age (in weeks): EDC: Hx Hx Para Hx Section SAB No 11/14/24 12:38 Active Medications Active Medications: Current Medications Generic Name Dose Route Start Last Admin Trade Name Freq PRN Reason Stop Dose Admin Cefazolin Sodium 2 gm/ Sodium 110 mls @ 200 mls/hr 03/03/25 12:50 Chloride IV 03/03/25 13:22 INTRAOP ONE Lactated Ringer's 1,000 mls @ 15 mls/hr 03/03/25 11:00 03/03/25 11:10 IV 15 mls/hr .Q48H ALICE Administration PFS Medical History Shortness of breath on exertion History of stress test Obesity (BMI 30.0-34.9) Proximal humerus fracture Wears glasses High cholesterol Gastric reflux Smoker Chronic cough Hypertension Home Medications ?Medication ?Instructions ?Recorded ?Last Taken ?Type cholecalciferol (vitamin D3) 25 25 mcg PO DAILY 03/02/25 History mcg (1,000 unit) capsule (Vitamin D3) coenzyme Q10 100 mg capsule (Co 100 mg PO DAILY 03/02/25 History Q-10) losartan 100 mg tablet 100 mg PO DAILY 11/14/24 History simvastatin 20 mg tablet 20 mg PO QHS 11/14/24 History zolpidem 12.5 mg tablet,extended 12.5 mg PO QHS PRN in somnia 11/14/24 03/01/25 History release,multiphase albuterol sulfate 90 mcg/actuation 2 puff inhalation Q 4H PRN wheezing 02/06/25 Unknown History aerosol inhaler aspirin 81 mg tablet,delayed 81 mg PO DAILY 02/21/25 0 02/24/25 History release Allergy/AdvReac Type Severity Reaction Status Date / Time No Known Allergies Allergy Verified 03/03/25 11:00 Family History Father CVA (cerebral vascular accident) Surgical History S/p reverse total shoulder arthroplasty History of History of cholecystectomy Social History Smoking Status: Light Smoker (<10/day) Review of Systems (Anesthesia) ROS Narrative System reviewed and no additional complaints, except as documented.
--- NOTE | 2025-03-03 11:49 | PCM.DC ---
Discharge Instructions DC O2, CPAP, BIPAP needs Home O2 Discharge instructions: No Dressing / Incision Discharge Activity: Return to Normal Activity, No Restrictions and May Drive May resume sexual activity in: No Restrictions Dressing / Incision Call your doctor if you observe: Fever of 101 or Higher and Uncontrolled pain Follow Up Care Please Follow Up With: Chad Cam MD When: Call [phone] for an appointment Test Results: Test results from this visit will be discussed in further detail at your follow-up appointment, if applicable. Discharge Plan Admission Primary Reason for Your Visit: ESWL Attending Provider: Chad Cam Primary Care Provider: Cooper Rivers Instructions Print Language: Prydeinig Discharge Orders/Prescriptions Prescriptions: New oxycodone 5 mg tablet 5 mg PO Q6H PRN (Reason: pain) 3 Days Qty: 20 0RF ciprofloxacin HCl [Cipro] 500 mg tablet 500 mg PO BID Qty: 10 0RF Continued simvastatin 20 mg tablet 20 mg PO QHS losartan 100 mg tablet 100 mg PO DAILY coenzyme Q10 [Co Q-10] 100 mg capsule 100 mg PO DAILY cholecalciferol (vitamin D3) [Vitamin D3] 25 mcg (1,000 unit) capsule 25 mcg PO DAILY zolpidem 12.5 mg tablet,ext release multiphase 12.5 mg PO QHS PRN (Reason: insomnia) albuterol sulfate 90 mcg/actuation HFA aerosol inhaler 2 puff inhalation Q4H PRN (Reason: wheezing) Held aspirin 81 mg tablet,delayed release (DR/EC) 81 mg PO DAILY Hold Instructions: Resume on 03/17/25. Other Ambulatory Orders: Abdomen Single View (Routine) Timeframe: [id number] Facility: [facility] - Location: [facility] Ordered By: Dr. Chad Cam Referrals / Follow Up: Chad Cam MD [Med Staff - Active Staff] - Cooper Rivers MD [Primary Care Provider] - Disposition Disposition (needs filled in before D/C Order can be placed): Home, Self Care
--- NOTE | 2025-03-03 13:20 | OP.PCM_ITS ---
Operative Report (Standard) Operative Information Date of Procedure: 03/03/25 Pre-Operative Diagnosis: left kidney stone Post-Operative Diagnosis: same Surgery/Procedure Performed: left ESWL certified diabetes educator: No Type of Anesthesia: General RN Documented Start/Stop Times: Operation Date: 03/03/25 12:45 Case Time Into Pre-Op 03/03/25 10:51 Out of Pre-Op 03/03/25 12:23 Anesthesia Start 03/03/25 12:27 Into Room 03/03/25 12:27 Procedure Start 03/03/25 12:39 Procedure End 03/03/25 13:20 Procedure Start Time: 12:39 Procedure Stop Time: 13:20 Select all DRAINS/GRAFTS/IMPLANTS that apply: None Estimated Blood Loss: none Specimen collected: No Description of surgery: Patient presents to the hospital for treatment of a kidney stone with shockwave lithotripsy. In the preoperative area and x-ray was done to confirm the location of the stone. The x-ray was reviewed and the stone location was reviewed. In the preoperative setting I spoke with the patient regarding the treatment of the stone how the treatment would be conducted and the expectations after surgery. The patient understands there is a risk of bleeding and infectio n. Also discussed the very rare risk of hematoma or damage to the kidney. We also discussed the risk that the shockwave machine will fail to break the stone adequately and that the patient may need other surgical procedures. I also discussed the possibility that the patient may need a stent after the procedure. After reviewing the procedure with the patient, the patient is signed the consent form all the patient's questions were addressed and was taken back to the operating room for treatment of a kidney stone. Patient was taken back to the operating room, the patient was identified by the nursing staff, I identified the side of the treatment and the patient side of treatment had been marked by my initials. The patient underwent general anesthetic and was placed supine on the lithotripter table. I then used fluoroscopy to identify the stone on the left side. I then positioned the patient under the lithotripter and I used triangulation technique to identify the location of the stone and then I made sure that the stone was engaged in the F2 focal point of F2 Donier lithoprior machine. Once the patient was positioned appropriately and the stone was identified and placed in the F2 focal point of the lithotripter machine I then proceeded with shockwave lithotripsy. In the beginning the shockwave was delivered at a rate of 90 shocks per minute, anesthesia monitored the EKG for any ectopy. The power was slowly increased to 5 kV and subsequently at the 7 kV. I then proceeded with the treatment with shock wave therapy and around during the treatment to make sure the stone stayed in the F2 focal point during the entire treatment and after 3000 shockwaves were delivered to the stone under fluoroscopic guidance the treatment was completed. The patient was given instructions to call the office to make an a follow-up appointment with an x-ray to evaluate the success of the treatment, patient understands that its possible the stones may need another procedure. At this point the patient's anesthetic was reversed patient was extubated and taken back to the PACU in stable condition. Surgical Findings: stone in left kidney broke up completely Complications Complications: No Admit VTE Documentation VTE Present on Admission: No VTE Mechan Device Prophylaxis: SCD's VTE Pharm Prophylaxis ordered?: No
--- NOTE | 2025-03-03 13:27 | PCM.POST.ANE ---
Anesthesia: Postop Eval I Current Vital Signs Temperature: 97.1 F Pulse Rate: 94 Blood Pressure: 132/69 Respiratory Rate: 16 Pulse Ox: 96 Oxygen Delivery Method: Room Air Assessment Airway patent: Yes Spontaneous unlabored respirations: Yes Mental status: Awake and Calm nausea: No Vomiting: No Anesthesia Complication: No Fluid Hydration Crystalloid volume administer (ml): 600 Total IV fluid infused: 600 Progress Note Anesthesia document: Postop Eval 1 completed: Yes
--- NOTE | 2025-03-03 14:16 | POSTOPAN2_ITS ---
Anesthesia Postop Eval I Sum Postop Eval Completion status Anesthesia document: Postop Eval 1 completed: Yes Anesthesia Postop Eval I Summary Anesthesia Postop Eval I Summary: Anesthesia Postop Eval I: Assessment Summary Airway patent Yes 03/03/25 13:28 [email or web address] [email or web address] Spontaneous unlabored Yes 03/03/25 13:28 EMBEDDED [email or web address] respirations Mental status Awake,Calm 03/03/25 13:28 EMBEDDED [email or web address] nausea No 03/03/25 13:28 EMBEDDED [email or web address].[email or web address] Vomiting No 03/03/25 13:28 EMBEDDED [email or web address].[email or web address] Anesthesia Postop Eval I: Fluid Summary Crystalloid volume administer 600 03/03/25 13:28 EMBEDDED [email or web address] (ml) Colloids volume administered ( ml) Blood Product volume administered (ml) Total IV fluid infused 600 03/03/25 13:28 [email or web address] [email or web address] Anesthesia Postop Eval I: Summary Notes Anesthesia Complication No 03/03/25 13:28 [email or web address] [email or web address] Anesthesia Complication Comment: Post-operative progress note Anesthesia: Postop Eval II Evaluation Mental status: Awake and Calm Pain Level: 0 nausea: No Vomiting: No Complications Anesthesia Complication: No
--- NOTE | 2025-03-03 14:16 | PCM.POSTANE2 ---
Anesthesia Postop Eval I Sum Postop Eval Completion status Anesthesia document: Postop Eval 1 completed: Yes Anesthesia Postop Eval I Summary Anesthesia Postop Eval I Summary: Anesthesia Postop Eval I: Assessment Summary Airway patent Yes 03/03/25 13:28 [email or web address] Spontaneous unlabored Yes 03/03/25 13:28 LOAN [email or web address] respirations Mental status Awake,Calm 03/03/25 13:28 LOAN [email or web address] nausea No 03/03/25 13:28 LOAN [email or web address].[email or web address] Vomiting No 03/03/25 13:28 LOAN [email or web address].[email or web address] Anesthesia Postop Eval I: Fluid Summary Crystalloid volume administer 600 03/03/25 13:28 [email or web address] (ml) Colloids volume administered ( ml) Blood Product volume administered (ml) Total IV fluid infused 600 03/03/25 13:28 LOAN [email or web address] Anesthesia Postop Eval I: Summary Notes Anesthesia Complication No 03/03/25 13:28 LOAN [email or web address] Anesthesia Complication Comment: Post-operative progress note Anesthesia: Postop Eval II Evaluation Mental status: Awake and Calm Pain Level: 0 nausea: No Vomiting: No Complications Anesthesia Complication: No
== END 2025-03-03 14:35 | disposition home or self-care (01) ==
LOC: SDC 10:41 → AC 10:42
PROVIDERS: PCP Family Medicine; Referring Provider Urology; Visit Provider Urology
PROC: (CPT 50590; principal; 2025-03-03 12:35)
DX: N20.0 Calculus of kidney (principal); E78.00 Pure hypercholesterolemia, unspecified; I10 Essential (primary) hypertension; F17.200 Nicotine dependence, unspecified, uncomplicated; Z79.899 Other long term (current) drug therapy; Z79.82 Long term (current) use of aspirin
CPT/HCPCS: 50590; 00873; J2405